=== PATIENT | male | born 1955 | race Caucasian/White ===

== ENCOUNTER 2016-07-04 12:39 | Inpatient (IN) | payer MEDICARE ==
--- NOTE | 2016-07-04 14:00 | ED ---
General Adult HPI - General Chief complaint: Psychiatric Symptoms Stated complaint: Mental Health Time Seen by Provider: 07/04/16 13:24 Source: patient, police, RN notes reviewed Mode of arrival: ambulatory Limitations: no limitations - History of Present Illness Initial comments: Patient is a pleasant 61-year-old male presenting to the emergency Department with correctional officers. Patient is here for mental health evaluation. Patient states he feels fine and has no complaints. Patient does at times answer questions inappropriately. Patient denies current thoughts of self-harm or harming others. Patient states sometimes he does not remember things and questions if he has a rational thoughts at times. Patient did eat today. Patient does not believe he is currently on medication. Patient denies alcohol and street drug use. Patient denies hallucinations however sometimes states he has odd thoughts and sometimes believes things are happening that may not be correct. - Related Data Previous Rx's Medication Instructions Recorded risperiDONE 3 mg PO BID #60 tablet 12/06/15 Allergies Allergy/AdvReac Type Severity Reaction Status Date / Time Sulfa (Sulfonamide Allergy Rash/Hives Verified 07/04/16 14:37 Antibiotics) Review of Systems ROS Statement: Those systems with pertinent positive or pertinent negative responses have been documented in the HPI. ROS Other: All systems not noted in ROS Statement are negative. Constitutional: Denies: fever Eyes: Denies: eye pain ENT: Denies: ear pain Respiratory: Denies: cough Cardiovascular: Denies: chest pain Endocrine: Denies: fatigue Gastrointestinal: Denies: abdominal pain Genitourinary: Denies: dysuria Musculoskeletal: Denies: back pain Skin: Denies: rash Neurological: Denies: headache Past Medical History Past Medical History: Hypertension History of Any Multi-Drug Resistant Organisms: None Reported Past Surgical History: Orthopedic Surgery Additional Past Surgical History / Comment(s): sinus sx Past Anesthesia/Blood Transfusion Reactions: No Reported Reaction Past Psychological History: Schizophrenia Smoking Status: Current every day smoker Past Alcohol Use History: None Reported Past Drug Use History: None Reported General Exam Limitations: no limitations General appearance: alert, in no apparent distress Head exam: Present: atraumatic Eye exam: Present: normal appearance Respiratory exam: Present: normal lung sounds bilaterally Cardiovascular Exam: Present: regular rate, normal rhythm GI/Abdominal exam: Present: soft. Absent: tenderness Extremities exam: Present: normal inspection Neurological exam: Present: alert Psychiatric exam: Present: normal affect, normal mood Skin exam: Absent: rash Course Vital Signs 07/04/16 12:44 Temperature 98.1 F Pulse Rate 101 H Respiratory 20 Rate Blood Pressure 171/101 O2 Sat by Pulse 97 Oximetry Medical Decision Making - Medical Decision Making Patient was seen by mental health services, who will admit. Positive clinical certificate completed. - Lab Data Lab Results 07/04/16 Range/Units 16:05 Urine Opiates Screen Not Detected (NotDetected) Ur Oxycodone Screen Not Detected (NotDetected) Urine Methadone Screen Not Detected (NotDetected) Ur Propoxyphene Screen Not Detected (NotDetected) Ur Barbiturates Screen Not Detected (NotDetected) U Tricyclic Antidepress Not Detected (NotDetected) Ur Phencyclidine Scrn Not Detected (NotDetected) Ur Amphetamines Screen Not Detected (NotDetected) U Methamphetamines Scrn Not Detected (NotDetected) U Benzodiazepines Scrn Not Detected (NotDetected) Urine Cocaine Screen Not Detected (NotDetected) U Marijuana (THC) Screen Not Detected (NotDetected) Disposition Clinical Impression: Acute psychosis Disposition: TRANSFER TO PSYCH HOSP/UNIT
[2016-07-04] MEDS ORDERED: MAG HYDROX/AL HYDROX/SIMETH 30 ML CUP PO PRN (17:00)
[2016-07-04] MEDS ORDERED: MAGNESIUM HYDROXIDE 2,400 MG/10 ML CUP PO PRN (17:00)
[2016-07-04] MEDS ORDERED: ZIPRASIDONE 20 MG VIAL IM PRN (17:00)
[2016-07-04] MEDS ORDERED: LORazepam 2 MG/ML SYRINGE IM PRN (17:02)
[2016-07-04] MEDS ORDERED: cloNIDine HCL 0.1 MG TAB PO PRN (19:22)
[2016-07-04] MEDS: cloNIDine HCL 0.1 MG TAB PO SCH (20:25)
[2016-07-04] MEDS: CEPHALEXIN 500 MG CAP PO SCH (20:25)
[2016-07-04] MEDS: LORazepam 1 MG TAB PO PRN (22:30)
[2016-07-05 07:47] LABS: Aty Lym Flag Slight; CH 30.8; CHCM 33.6; HCT 49.2 % (39.0-53.0); HDW 2.57; HGB 16.4 gm/dL (13.0-17.5); MCH 30.7 pg (25.0-35.0); MCHC 33.3 g/dL (31.0-37.0); Mean Platelet Volume 7.5; RBC 5.35 m/uL (4.30-5.90); RDW 12.9 % (11.5-15.5); WBC (Perox) 12.53
[2016-07-05 07:53] LABS: ALT 34 U/L (21-72); AST 29 U/L (17-59); Alkaline Phosphatase 98 U/L (38-126); Anion Gap 7 mmol/L; Blood Urea Nitrogen 15 mg/dL (9-20); Calcium 9.1 mg/dL (8.4-10.2); Carbon Dioxide 26 mmol/L (22-30); Chloride 107 mmol/L (98-107); Glucose 88 mg/dL (74-99); Non-African American GFR(MDRD) >60 (>60 ml/min/1.73 sqM); Potassium 4.4 mmol/L (3.5-5.1); Sodium 140 mmol/L (137-145); Total Bilirubin 0.9 mg/dL (0.2-1.3); Total Protein 6.7 g/dL (6.3-8.2)
--- NOTE | 2016-07-05 08:44 | CONS ---
DATE OF CONSULTATION: 07/04/2016 REASON FOR CONSULTATION: Advice regarding cellulitis and other medical issues requested by Psychiatrist. HISTORY OF PRESENT ILLNESS: This 61-year-old gentleman with past medical history of schizophrenia, history of nicotine dependence, being followed by Dr. Roque in the outpatient setting apparently recently got out of alf. The patient is complaining of some pains and swelling and some reddish area in the right wrist area. There is no history of fever, rigors. No history of headache, loss of consciousness or seizures. PAST MEDICAL HISTORY: Schizophrenia, history nicotine dependence. HOME MEDICATIONS: Risperdal 3 mg p.o. daily. ALLERGIES: SULFA. FAMILY HISTORY: No history of heart disease or strokes in the family. SOCIAL HISTORY: History of smoking. No history of alcohol intake. REVIEW OF SYSTEMS: ENT: No diminishing hearing. No diminished vision. CARDIOVASCULAR: No angina or palpitations. RESPIRATORY: As mentioned earlier. GI: No nausea. : No dysuria. NERVOUS SYSTEM: No numbness, weakness. ALLERGY/IMMUNOLOGY: No asthma or hayfever. MUSCULOSKELETAL: As mentioned earlier. HEMATOLOGY/ONCOLOGY: No history of anemia. ENDOCRINE: No history of diabetes. CONSTITUTIONAL: As mentioned earlier. DERMATOLOGY: Negative. RHEUMATOLOGY: Negative. PSYCHIATRY: As mentioned earlier. PHYSICAL EXAMINATION: Patient is alert and oriented x2. Pulse 101, blood pressure 171/101, respirations 20, temperature 98.1, pulse ox 97% on room air. HEENT: Conjunctivae normal. NECK: No jugular venous distention. CARDIOVASCULAR: S1 and S2, muffled. RESPIRATORY: Breath sounds diminished at the bases. A few rhonchi, no crackles. ABDOMEN: Soft, nontender, no mass palpable. LEGS: No edema, no swelling. NERVOUS SYSTEM: Higher function as mentioned. Moves all four limbs. No focal motor deficits. Cranial nerves II to XII grossly intact. Eye movements are full in all directions. No nystagmus. No facial deviation noted. Otherwise, moves all 4 limbs. No focal deficits. Gait is normal. SKIN: No ulcer, rash or bleeding. Cellulitis of the right wrist area present. LYMPHATIC: No lymphadenopathy in the neck, axillae or groin. JOINTS: No active deforming arthropathy. LABS: Drug screen is negative. ASSESSMENT: 1. Acute right arm cellulitis. 2. Hypertension. 3. Schizophrenia. 4. Nicotine dependence. 5. History of degenerative joint disease. 6. FULL CODE. RECOMMENDATIONS AND DISCUSSION: In this 61-year-old gentleman who presented with multiple medical problems, will monitor the patient closely. Continue the current medications. Continue symptomatic treatment. I would recommend a course of antibiotics, clonidine for blood pressure control. I also recommend the patient to follow-up closely with Dr. Roque after discharge. I will be happy to review any abnormal labs once a labs are completed. Thank you for letting us participate in the care of this patient.
[2016-07-05] MEDS: NICOTINE 14MG/24HR PATCH TRANSDERM SCH (09:35)
[2016-07-05] MEDS: cloNIDine HCL 0.1 MG TAB PO SCH ×2 (09:37→21:36)
[2016-07-05] MEDS: CEPHALEXIN 500 MG CAP PO SCH ×3 (11:22→21:37)
[2016-07-05] MEDS: LORazepam 1 MG TAB PO PRN (12:04)
[2016-07-05 14:03] LABS: Add Differential Manual Differential
[2016-07-05 14:05] LABS: Nucleated Red Blood Cells 0 /100 WBC (0-0); Total Cells Counted 100
[2016-07-05 14:06] LABS: RBC Morphology Normal
[2016-07-05] MEDS: risperiDONE 2 MG TAB PO SCH (15:02)
[2016-07-05] MEDS: FLUoxetine HCL 20 MG CAP PO SCH (15:02)
--- NOTE | 2016-07-05 17:31 | HP ---
DATE OF SERVICE: 07/05/2016 DATE OF ADMISSION: 07/04/2016 IDENTIFYING DATA: The patient is a 61-year-old male. He lives alone. He was brought to the emergency room by police who brought him from the nursing home. CHIEF COMPLAINT: The patient apparently was making odd statements. He was asked seen in a disorganized way, Police petitioned for involuntary hospitalization describing the patient as "Untrusting, suspicious, guarded, disheveled, easily agitated, unaware of day, date, time, labile mood." He apparently was making odd and delusional statements. He had disorganized behavior such as urinating on the floor. HISTORY OF PRESENTING ILLNESS: The patient source of admission information in it is noted that he had a prior hospitalization here December 02 to December 06, 2015. At that time Dr. Quintana noted on her admission note that the patient was admitted due to depression with thoughts of wanting to commit suicide. He considered overdose. He came to the emergency room saying he needed help. He had increasing feelings over one month's time of being hopeless, helpless, and worthless. He had loss of energy and motivation. He had loss of energy, motivation and interest. He was sleeping in the day and then would be awake all night. He was eating poorly because of very limited resources. He denied auditory or visual hallucinations. He denied thoughts to harm others. The patient had reported that he had depression problems going back to high school. He had been involved at [facility], though had not been in their care for the last 1 to 1-1/2 years leading up to the November hospitalization. The reason for the change was that he was on Medicare. He had a primary care physician who prescribed medications. He had a history of 2 suicide attempts, one by overdose of [id number] sleeping medications and another when he put a gun in his mouth. He did report a history of auditory hallucinations. He has a diagnosis through [facility] with schizophrenia. He has had stays at [facility] 2 to 3 times in the past with brief stays lasting about 30 days. During his admission in November, the patient was started on Prozac 20 mg a day and Risperdal 3 mg twice a day. Since November, the patient provided some information about his life since then. He gave information that was fairly disjointed. He said that upon discharge he lost his prescriptions for his medications. He ultimately got his medications filled by Dr. Roque his primary care physician. He was unclear for how long he took the medications, though suggested he stayed on Risperdal and Prozac for 2 to 3 months. Sometime in March he ran out of medications because of financial issues. She got one refill of medications perhaps toward the end of March and the medications ran out. He has not been able to get to any further medications. He did not provide much information about the basis of arrest. He said that he was in some community location. The geothermal installer stopped him and asked a number of questions. He did not have an identification. He was asked if he had a weapon and he reported carrying a knife. According to the patient, he was arrested on the basis of a "weapons charge." He was brought to nursing home. Patient himself is unaware of what issues may have prompted police to bring him from nursing home to the hospital. He does say that he has a court hearing coming up within the next week or 2 for the weapons charge. She describes an unfortunate situation where he lost his identification. He is hopeful to get a certificate. He apparently was born in [place]. He says he has some money in the bank though cannot access the money because he has no identification and that he is limited in getting identification because he has no money. He made mention of having psychiatric issues going back to high school, though he was unclear about details. He did indicate that he got involved in drug abuse, though he was again unclear about details. He does say that in the past he was on Prolixin perhaps until the . He said that the doctors recommended a change from Prolixin to Risperdal due to concerns for development of tardive dyskinesia. Currently he has not been taking any psychotropic medications. He is admitted for further evaluation. Substance use history: As above. MEDICAL HISTORY: Uncertain save for hypertension. Further medical history and review of systems as per medical consultation of Dr. Pro. 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 She September 17, 2015 he lives alone. MENTAL STATUS EXAM: Patient was unkempt in appearance. He sat with a slumped posture. Eye contact was fair. Psychomotor activity was slowed. He spoke with a soft voice. Much of the time he mumbled and it was difficult to discern what he was saying. It was noted that he would answer some questions with direct responses. Then he might make comments that were quite tangential. He seemed to be able to follow the course of the interview though his thoughts would wander off as he tried to provide some details. His affect was flat. His mood reserved. It was difficult to say if he was distressed. There was no immediate evidence for thought disorder. He denied thoughts of self-harm. On cognitive exam, he did not make an effort to answer formal cognitive questions. It is noteworthy that he made a number of comments that seemed to suggest he was well oriented. He made comments about his medications. He understood some of the side effects of medications when asked about self-harm, he made comments as to how he had gotten help in the past and knew he was able to get to the emergency room and get help so that he was not at risk to harm himself. When I tried to gather further details about current situation, he did not provide much information. It was not clear that he had specifically disorganized thoughts relating to thought disorder. He seemed to relate appropriately. He was oriented to his surroundings, though there was a sense that his thoughts did tend to wander. When he spoke he could say things in an organized and coherent manner. Fund of knowledge average to somewhat below average. PHYSICAL EXAM: As per medical consultation of Dr. Pro. DIAGNOSTIC STUDIES: CBC was positive for WBC 13.0, hemoglobin 16.4, MCV 92, comprehensive metabolic profile was unremarkable, glucose 88, creatinine 0.9, TSH 1.5, urine drug screen negative. ASSESSMENT: 61-year-old male who is diagnosed with schizophrenia. He has unfortunate social circumstances with very limited resources, both in terms of money as well as social support. Some of the factors relating to his hospitalization are not clear. He does have legal issues pending. Strengths appeared to include that he has managed to live independently and maintain himself. DIAGNOSES: 1. Schizophrenia with acute exacerbation. 2. Rule out major depression. 3. Hypertension. RECOMMENDATIONS: Patient will be admitted for comprehensive medical, psychiatric and psychosocial evaluation. We will engage the patient in individual and group therapeutic activities. I will start the patient on Prozac 20 mg a day and Risperdal 6 mg a day as has been previously prescribed. We will make efforts to help the patient find some connections in the community and hopefully to begin to develop support network. We will focus on stabilization and discharge planning. AG
[2016-07-06] MEDS: CEPHALEXIN 500 MG CAP PO SCH ×3 (09:55→21:14)
[2016-07-06] MEDS: cloNIDine HCL 0.1 MG TAB PO SCH ×2 (09:57→21:14)
[2016-07-06] MEDS: NICOTINE 14MG/24HR PATCH TRANSDERM SCH (09:57)
[2016-07-06] MEDS: FLUoxetine HCL 20 MG CAP PO SCH (09:57)
[2016-07-06] MEDS: risperiDONE 2 MG TAB PO SCH (09:58)
[2016-07-06 19:48] LABS: Appearance,Urine Clear (Clear); Bilirubin,Urine Negative (Negative); Glucose,Urine (UA) Negative (Negative); Ketones,Urine Trace (Negative); Leukocyte Esterase,Urine Negative (Negative); Nitrite,Urine Negative (Negative); PH, Urine 6.5 (5.0-8.0); Protein,Urine Negative (Negative); Specific Gravity,Urine 1.015 (1.001-1.035); UA Billing (MACRO vs. MICRO) CHEM; Urobilinogen,Urine <2.0 mg/dL (<2.0)
--- NOTE | 2016-07-06 22:31 | PN ---
DATE OF SERVICE: 07/06/2016 CHIEF COMPLAINT: The patient was admitted due to making odd statements and disorganized behavior. He was petitioned by police. He appeared delusional. INTERVAL HISTORY: Patient has been doing fair. He had a quiet evening last night. He only slept about 3 hours. Today he has been up and about. He has been attending groups. He is generally appropriate, though he does not interact too much in groups or in the milieu. He gets himself around the milieu. He has not had any significant behavior issues. His biggest concern is with a complicated issue of not having identification so that he does not have access to money he has in the bank. Because of no identification he has not been able to get medications. He has pending legal issues with possession of a knife. He says he is stuck even not being able to take care of the fine because of the situation. He is most concerned with things such as obtaining a certificate to allow him to get IV so that he can function in the community. He made comments that he has been arrested on different occasions, each time he is arrested he loses "all of my possessions." He did not give details. Overall he seems to be doing adequately from a psychiatric standpoint. He was restarted on medicines that he been on previously. He has not had any trouble with the start of Prozac and Risperdal. He has been cooperative. He has not had change in his general health other than some fluctuations in blood pressure. Last evening his blood pressure was 103/60, this morning a 6:30 it was 143/81. We will continue to monitor for blood pressure issues. He tolerates his psychotropic medications. MENTAL STATUS: Patient gave good eye contact. Psychomotor activity was a little restless. He answered questions with brief responses then would tend to ramble about other issues. He was quite persistent in talking about the dilemma he was in with not having identification. He was very concerned about how he may be able to go about it getting the basics in his daily life re-established. His affect was somewhat blunted. His mood reserved. He seemed to be worries and somewhat distressed. ASSESSMENT: I will continue the current diagnosis and treatment plan. We will continue psychotropic medications the same. I discussed with the patient that the social media content specialist could begin to help him sort out some of the issues that he feels are critical. He seems to be doing adequately on his medications. There are no significant signs of active thought disorder. We will continue to focus on stabilization and discharge planning.
[2016-07-07] MEDS: cloNIDine HCL 0.1 MG TAB PO SCH ×2 (09:26→20:13)
[2016-07-07] MEDS: risperiDONE 2 MG TAB PO SCH (09:26)
[2016-07-07] MEDS: CEPHALEXIN 500 MG CAP PO SCH ×3 (09:26→20:13)
[2016-07-07] MEDS: FLUoxetine HCL 20 MG CAP PO SCH (09:27)
[2016-07-07] MEDS: NICOTINE 14MG/24HR PATCH TRANSDERM SCH (09:27)
--- NOTE | 2016-07-07 11:37 | P.PN ---
Progress Note - Text SUBJECTIVE: I reviewed the medical record, interviewed Mr. Sarabia and discuss his treatment and treatment plan during team meeting. He is a 61-year-old male who has history of a chronic schizophrenia transferred from nursing home where he was awaiting arrangement for possession of a switchblade. He has history of poor compliance with mental health treatment. According to the petition and he was suspicious, guarded, disheveled, easily agitated and labile. During our interview he perseverated on his legal problems, housing problems and inability to obtain identification. He alleged that he has been harassed by the [place] police resulting in several incarcerations. He has been living in a motel but is uncertain whether he could return because he does not have state identification to withdraw money from his bank to pay rent. He minimizes severity of legal problems alleging that he had possession of a " tiny knife". He alleges she didn't understand the reason for his answer from nursing home. OBJECTIVE: He presented as a casually groomed 61-year-old male who was pleasant on approach. He made eye contact and appeared to attend to the interview. No distinguishing features or prominent physical abnormalities. He had a blunted facial expression. He is alert and oriented to person, place and time. He had slight psychomotor retardation but no abnormal involuntary movements. His gait was slow but steady. His speech was dysarthric, and spontaneous. His affect was blunted. He denied suicidal ideation or wish. He denied homicidal ideation. He denied feeling hopeless, helpless or worthless. He ruminated on the balls legal and social issues. He did not express phobias, ideas reference, paranoid ideation or delusional thinking. His thinking was very concrete and his associations were not fully organized. He denied hallucinations and did not appear to be responding to internal stimuli. He has not shown behavioral dyscontrol or disruptive behavior since admission. ASSESSMENT: He has a history of chronic schizophrenia and poor compliance with medical treatment. Overall, he appears moderately mentally ill and moderately improved from admission. PLAN: Continue inpatient psychiatric hospitalization. Discuss transitioning from oral to long-acting intramuscular antipsychotic medications. Continue risperidone 6 mg at bedtime and fluoxetine 20 mg daily. Discuss transitioning from risperidone to Invega Sustenna. Continue Keflex 500 mg 3 times a day as per the recommendation of the solutions architect consultant. Encourage participation in therapeutic groups and activities. Evaluate clinical status response to treatment daily basis. Discharge back to nursing home.
[2016-07-08] MEDS: NICOTINE 14MG/24HR PATCH TRANSDERM SCH (09:11)
[2016-07-08] MEDS: FLUoxetine HCL 20 MG CAP PO SCH (09:12)
[2016-07-08] MEDS: risperiDONE 2 MG TAB PO SCH (09:12)
[2016-07-08] MEDS: cloNIDine HCL 0.1 MG TAB PO SCH ×2 (09:12→20:49)
[2016-07-08] MEDS: CEPHALEXIN 500 MG CAP PO SCH ×2 (09:12→15:37)
[2016-07-08] MEDS: ACETAMINOPHEN TAB 325 MG TAB PO PRN ×3 (10:55→20:49)
--- NOTE | 2016-07-08 15:23 | P.PN ---
Progress Note - Text SUBJECTIVE: I reviewed the medical record, interviewed Mr. Sarabia and discuss his treatment and treatment plan during team meeting. He denied problems or concerns. I asked that he be interested in switching from oral to a long acting injectable medication. He became acutely distressed and talked about not wanting to take month's supply of medication "all at once." His thinking was so disorganized that he could not understand my explanation that the injectable medication was timed release. OBJECTIVE: He presented as a disheveled appearing 61-year-old male who was pleasant on approach. He made eye contact and appeared to attend to the interview. No distinguishing features or prominent physical abnormalities. He had a blunted facial expression. He is alert and oriented to person, place and time. He had slight psychomotor retardation but no abnormal involuntary movements. His gait was slow but steady. His speech was dysarthric , and spontaneous. His affect was blunted. He denied suicidal ideation or wish. He denied homicidal ideation. He denied feeling hopeless, helpless or worthless. He did not express phobias, ideas reference, paranoid ideation or delusional thinking. His thinking was very concrete and was disorganized, illogical and nonlinear. He denied hallucinations and did not appear to be responding to internal stimuli. He has not shown behavioral dyscontrol or disruptive behavior since admission. ASSESSMENT: He has a history of chronic schizophrenia and poor compliance with medical treatment. Overall, he appears moderately mentally ill and moderately improved from admission. PLAN: Continue inpatient psychiatric hospitalization. Continue to discuss transitioning from oral to long-acting intramuscular antipsychotic medications. Continue risperidone 6 mg at bedtime and fluoxetine 20 mg daily. Continue Keflex 500 mg 3 times a day as per the recommendation of the franchise field consultant. Encourage participation in therapeutic groups and activities. Evaluate clinical status response to treatment daily basis. Discharge back to alf.
[2016-07-09] MEDS: NICOTINE 14MG/24HR PATCH TRANSDERM SCH (10:17)
[2016-07-09] MEDS: cloNIDine HCL 0.1 MG TAB PO SCH ×2 (10:17→21:49)
[2016-07-09] MEDS: risperiDONE 2 MG TAB PO SCH (10:19)
[2016-07-09] MEDS: FLUoxetine HCL 20 MG CAP PO SCH (10:20)
[2016-07-09] MEDS: ACETAMINOPHEN TAB 325 MG TAB PO PRN (16:23)
[2016-07-10 06:59] VITALS: BP 108/83; PULSE 121; RESP 18; TEMP 97.7
[2016-07-10] MEDS: NICOTINE 14MG/24HR PATCH TRANSDERM SCH (10:33)
[2016-07-10] MEDS: risperiDONE 2 MG TAB PO SCH (10:33)
[2016-07-10] MEDS: cloNIDine HCL 0.1 MG TAB PO SCH (10:33)
[2016-07-10] MEDS: FLUoxetine HCL 20 MG CAP PO SCH (10:33)
[2016-07-10] MEDS: ACETAMINOPHEN TAB 325 MG TAB PO PRN (10:34)
--- NOTE | 2016-07-10 11:43 | P.PN ---
Progress Note - Text SUBJECTIVE: I reviewed the medical record, interviewed Mr. Valle and discuss his treatment and treatment plan during team meeting. He came to my office but refused to speak. He looked at the floor or about the room. OBJECTIVE: He presented as a disheveled appearing 61-year-old male who would not ask questions or speak. He had a flat facial expression. He showed no abnormality of psychomotor activity. No abnormal involuntary movements. His affect was flat. He did not look paranoid or suspicious. I was unable to evaluate his thought process. He did not appear to be responding to internal stimuli. He slept 6 hours on Thursday night and 5 hours Thursday night. He's been compliant with prescribed medications. He displayed no episodes of behavioral dyscontrol and has not required when necessary medications for agitation or acute anxiety. ASSESSMENT: His presentation is markedly different from yesterday were I was able to engage him in a conversation. PLAN: Continue inpatient hospitalization. Continue suicide precautions with 15 minute checks. Continue risperidone 6 mg at bedtime, fluoxetine 20 mg daily and clonidine 0.1 mg twice a day (for hypertension). Continue to discuss transitioning to [facility]. He will return to skilled nursing after discharge.
--- NOTE | 2016-07-10 11:47 | P.PN ---
Progress Note - Text SUBJECTIVE: I reviewed the medical record, interviewed Mr. amor and discuss his treatment and treatment plan during team meeting. He came into my office and asked "what the fuck do you want. ... Do you want to psychoanalyze me or something. ... I got nothing to say unless you give me a cigarette." He inquired when he would be discharged. He understands that he will return to nursing home. OBJECTIVE: He presented as disheveled-appearing 61-year-old man who is minimally cooperative with the interview. He made eye contact and appeared to attend to the interview. He had no distinguishing features or prominent physical abnormalities. An angry facial expression. He was alert and oriented to person, place and time. He showed no abnormality of psychomotor activity. No abnormal involuntary movements. His speech was not spontaneous but had normal rate, rhythm and volume. His affect was irritable and angry. He denied suicidal ideation or wishes. He denied homicidal ideation. He denied feeling hopeless, helpless or worthless. He would not answer questions about psychotic experiences such as ideas reference, paranoid ideation, thought insertion, thought broadcasting or hallucinations. His thinking was concrete but her associations were organized. ASSESSMENT: He is irritable but does not display overt psychotic symptoms. PLAN: Discharge today with follow-up by the [facility] liaison at the nursing home.
--- NOTE | 2016-07-10 15:02 | P.DS ---
Providers Date of admission: 07/04/16 16:13 Attending physician: Caden Underwood MD Consults: 07/04/16 17:00 Consult Physician Routine Consulting Provider: Stacy Pro Consult Reason/Comments: follow up h & P Do you want consulting provider notified?: Yes Primary care physician: Jude Restrepo Charbal - Discharge Diagnosis(es) (1) Schizophrenia Current Visit: Yes Status: Chronic Priority: High (2) Poor compliance with medication Current Visit: Yes Status: Chronic Priority: High (3) Legal problem Current Visit: Yes Status: Chronic Priority: Medium Hospital Course: He is a 61-year-old male who has history of a chronic schizophrenia transferred from halfway where he was awaiting arrangement for possession of a switchblade. He has history of poor compliance with mental health treatment. According to the petition and he was suspicious, guarded, disheveled, easily agitated and labile. Please see admission history dated 07/05/2016. We admitted him to the psychiatric unit under the care of this chief underwriter. We provided a biopsychosocial assessment. The integration consultant completed the initial physical exam and medical history and diagnosed hypertension, tobacco use disorder and history of degenerative joint disease. The integration consultant recommended clonidine 0.1 mg by mouth twice a day for treatment of hypertension. We resumed his outpatient psychotropic medications including risperidone 6 mg daily and fluoxetine 20 mg daily. He participated minimally with therapeutic groups and activities. However, he was compliant with prescribed medications. He posed no management problem displayed no episodes of behavioral dyscontrol. He is angry about his legal problems and the fact that he had to return to halfway after discharge. We'll arrange for him to receive services provided the [facility] halfway liaison. Patient Condition at Discharge: Stable Plan - Discharge Summary New Discharge Prescriptions: FLUoxetine HCL [PROzac] 20 mg PO DAILY #30 cap Nicotine 14Mg/24Hr Patch [Habitrol] 1 patch TRANSDERM DAILY 30 Days cloNIDine HCL [Catapres] 0.1 mg PO BID #60 tab risperiDONE 3 mg PO BID #60 tablet Discharge Medication List FLUoxetine HCL [PROzac] 20 mg PO DAILY #30 cap 07/10/16 [Rx] Nicotine 14Mg/24Hr Patch [Habitrol] 1 patch TRANSDERM DAILY 30 Days 07/10/16 [Rx ] cloNIDine HCL [Catapres] 0.1 mg PO BID #60 tab 07/10/16 [Rx] risperiDONE 3 mg PO BID #60 tablet 07/10/16 [Rx] Follow up Appointment(s)/Referral(s): [facility] [Outside] - 07/16/16 1:00 pm ([facility] w/ Jaelyn 07/16/16 at 1:00 pm. ) Zach Roque MD [Primary Care Provider] - 1 Week Patient Instructions/Handouts: How to Stop Smoking (DC), Depression (DC), Brief Psychotic Disorder (DC) Activity/Diet/Wound Care/Special Instructions: No alcohol or street drugs. Take medications as prescribed. Notify the crisis line or your care provider if symptoms worsen. Crisis line no. . Regular diet. Activity as tolerated. Discharge Disposition: HOME SELF-CARE
== END 2016-07-10 15:18 | disposition home or self-care (01) | DRG 885 ==
LOC: EC 12:39 → 3MHU 16:13
PROVIDERS: ADMIT Psychiatry & Neurology Psychiatry; ATTEND Psychiatry & Neurology Psychiatry
DX: F20.9 Schizophrenia, unspecified (principal); L03.113 Cellulitis of right upper limb; Z91.14 Patient's other noncompliance with medication regimen; I10 Essential (primary) hypertension; F32.9 Major depressive disorder, single episode, unspecified; F17.200 Nicotine dependence, unspecified, uncomplicated; M19.90 Unspecified osteoarthritis, unspecified site; Z79.899 Other long term (current) drug therapy; Z88.2 Allergy status to sulfonamides; Z59.9 Problem related to housing and economic circumstances, unspecified; Z65.3 Problems related to other legal circumstances
CPT/HCPCS: 80053; 80306; 81003; 82075; 84443; 85025

== ENCOUNTER 2018-11-09 17:10 | Inpatient (IN) | payer MEDICARE, OTHER ==
[2018-11-09] MEDS ORDERED: SODIUM CHLORIDE 0.9% 1,000 ML IV STA ×3 (17:24→20:23)
--- NOTE | 2018-11-09 17:26 | ED ---
General Adult HPI - General Chief complaint: Weakness Stated complaint: Weakness Time Seen by Provider: 11/09/18 17:12 Source: patient, EMS, RN notes reviewed Mode of arrival: EMS Limitations: physical limitation - History of Present Illness Initial comments: Patient is a pleasant 63-year-old male presenting to the emergency department by EMS for general weakness. Patient states onset of symptoms was this morning. Patient states he sat down and was too weak to get up. Patient is overall a poor historian and does not offer much information. There was question if there is any confusion or not however patient does answer questions appropriately. Patient denies any history of similar symptoms previously. Patient denies any pain. Patient denies any isolated area of weakness. - Related Data Previous Rx's Medication Instructions Recorded FLUoxetine HCL [PROzac] 20 mg PO DAILY #30 cap 07/10/16 Nicotine 14Mg/24Hr Patch [Habitrol] 1 patch TRANSDERM DAILY 30 Days 07/10/16 patch cloNIDine HCL [Catapres] 0.1 mg PO BID #60 tab 07/10/16 risperiDONE 3 mg PO BID #60 tablet 07/10/16 Allergies Allergy/AdvReac Type Severity Reaction Status Date / Time Sulfa (Sulfonamide Allergy Rash/Hives Verified 11/09/18 17:54 Antibiotics) Review of Systems ROS Statement: Those systems with pertinent positive or pertinent negative responses have been documented in the HPI. ROS Other: All systems not noted in ROS Statement are negative. Constitutional: Denies: fever Eyes: Denies: eye pain ENT: Denies: ear pain Respiratory: Denies: cough, dyspnea Cardiovascular: Denies: chest pain Endocrine: Denies: fatigue Gastrointestinal: Denies: abdominal pain Genitourinary: Denies: urgency Musculoskeletal: Denies: back pain Skin: Denies: rash Neurological: Reports: as per HPI, weakness (Generalized). Denies: headache Past Medical History Past Medical History: Hypertension History of Any Multi-Drug Resistant Organisms: None Reported Past Surgical History: Orthopedic Surgery Additional Past Surgical History / Comment(s): sinus sx Past Anesthesia/Blood Transfusion Reactions: No Reported Reaction Past Psychological History: Schizophrenia Smoking Status: Current every day smoker Past Alcohol Use History: None Reported Past Drug Use History: None Reported General Exam Limitations: physical limitation General appearance: alert, in no apparent distress Head exam: Present: atraumatic Eye exam: Present: normal appearance, PERRL, EOMI ENT exam: Present: normal oropharynx Neck exam: Present: normal inspection Respiratory exam: Present: normal lung sounds bilaterally Cardiovascular Exam: Present: tachycardia GI/Abdominal exam: Present: soft. Absent: distended, tenderness Extremities exam: Present: normal inspection Neurological exam: Present: alert, oriented X3, CN II-XII intact. Absent: motor sensory deficit Expanded Patient oriented to: Present: person, place, time Speech: Present: fluid speech Cranial nerves: EOM's Intact: Normal Motor strength exam: RUE: 5, LUE: 5, RLE: 5, LLE: 5 Eye Response: (4) open spontaneously Motor Response: (6) obeys commands Verbal Response: (5) oriented Psychiatric exam: Present: normal affect, normal mood Skin exam: Present: rash (Patient does have a tiny eschar/rash and dorsal hand and somewhat on the feet consistent with scabies.) Course Vital Signs 11/09/18 11/09/18 17:14 19:34 Temperature 99.1 F Pulse Rate 134 H 131 H Respiratory 18 20 Rate Blood Pressure 135/80 144/97 O2 Sat by Pulse 92 L 94 L Oximetry - Reevaluation(s) Reevaluation #1: 11/09/18 20:24 Patient does meet sepsis criteria diagnosed at 2020. Blood culture and lactic acid were ordered. IV antibiotics will be ordered. EKG Findings - EKG Comments: EKG Findings:: Sinus tachycardia 128. KS 132. QRS 72. QT 286. QTc 417. Left axis. Normal QRS. No acute ST change. Medical Decision Making - Medical Decision Making Patient reevaluated and updated. Case discussed with practitioner Martita, covering for Dr. Pro, who will admit for Dr. Roque. - Lab Data Result diagrams: 11/09/18 17:47 11/09/18 17:47 Lab Results 11/09/18 11/09/18 11/09/18 Range/Units 17:47 17:47 17:47 WBC 30.3 H (3.8-10.6) k/uL RBC 4.79 (4.30-5.90) m/uL Hgb 14.9 (13.0-17.5) gm/dL Hct 43.8 (39.0-53.0) % MCV 91.5 (80.0-100.0) fL MCH 31.0 (25.0-35.0) pg MCHC 33.9 (31.0-37.0) g/dL RDW 14.2 (11.5-15.5) % Plt Count 214 (150-450) k/uL Neutrophils % 81 % Lymphocytes % 12 % Monocytes % 4 % Eosinophils % 1 % Basophils % 1 % Neutrophils # 24.6 H (1.3-7.7) k/uL Lymphocytes # 3.5 (1.0-4.8) k/uL Monocytes # 1.2 H (0-1.0) k/uL Eosinophils # 0.2 (0-0.7) k/uL Basophils # 0.2 (0-0.2) k/uL PT (9.0-12.0) sec INR (<1.2) APTT (22.0-30.0) sec Sodium 128 L (137-145) mmol/L Potassium 4.2 (3.5-5.1) mmol/L Chloride 93 L (98-107) mmol/L Carbon Dioxide 23 (22-30) mmol/L Anion Gap 12 mmol/L BUN 12 (9-20) mg/dL Creatinine 1.05 (0.66-1.25) mg/dL Est GFR (CKD-EPI)AfAm 89 (>60 ml/min/1.73 sqM) Est GFR (CKD-EPI)NonAf 77 (>60 ml/min/1.73 sqM) Glucose 149 H (74-99) mg/dL Plasma Lactic Acid Abel 1.6 (0.7-2.0) mmol/L Calcium 8.9 (8.4-10.2) mg/dL Magnesium 1.7 (1.6-2.3) mg/dL Total Bilirubin 1.2 (0.2-1.3) mg/dL AST 20 (17-59) U/L ALT 15 L (21-72) U/L Alkaline Phosphatase 113 (38-126) U/L Creatine Kinase 255 H (55-170) U/L Troponin I (0.000-0.034) ng/mL Total Protein 7.0 (6.3-8.2) g/dL Albumin 4.0 (3.5-5.0) g/dL TSH 0.460 L (0.465-4.680) mIU/L Urine Color Urine Appearance (Clear) Urine pH (5.0-8.0) Ur Specific [place] (1.001-1.035) Urine Protein (Negative) Urine Glucose (UA) (Negative) Urine Ketones (Negative) Urine Blood (Negative) Urine Nitrite (Negative) Urine Bilirubin (Negative) Urine Urobilinogen (<2.0) mg/dL Ur Leukocyte Esterase (Negative) 11/09/18 11/09/18 11/09/18 Range/Units 17:47 17:47 19:22 WBC (3.8-10.6) k/uL RBC (4.30-5.90) m/uL Hgb (13.0-17.5) gm/dL Hct (39.0-53.0) % MCV (80.0-100.0) fL MCH (25.0-35.0) pg MCHC (31.0-37.0) g/dL RDW (11.5-15.5) % Plt Count (150-450) k/uL Neutrophils % % Lymphocytes % % Monocytes % % Eosinophils % % Basophils % % Neutrophils # (1.3-7.7) k/uL Lymphocytes # (1.0-4.8) k/uL Monocytes # (0-1.0) k/uL Eosinophils # (0-0.7) k/uL Basophils # (0-0.2) k/uL PT 10.9 (9.0-12.0) sec INR 1.0 (<1.2) APTT 25.6 (22.0-30.0) sec Sodium (137-145) mmol/L Potassium (3.5-5.1) mmol/L Chloride (98-107) mmol/L Carbon Dioxide (22-30) mmol/L Anion Gap mmol/L BUN (9-20) mg/dL Creatinine (0.66-1.25) mg/dL Est GFR (CKD-EPI)AfAm (>60 ml/min/1.73 sqM) Est GFR (CKD-EPI)NonAf (>60 ml/min/1.73 sqM) Glucose (74-99) mg/dL Plasma Lactic Acid Abel (0.7-2.0) mmol/L Calcium (8.4-10.2) mg/dL Magnesium (1.6-2.3) mg/dL Total Bilirubin (0.2-1.3) mg/dL AST (17-59) U/L ALT (21-72) U/L Alkaline Phosphatase (38-126) U/L Creatine Kinase (55-170) U/L Troponin I <0.012 (0.000-0.034) ng/mL Total Protein (6.3-8.2) g/dL Albumin (3.5-5.0) g/dL TSH (0.465-4.680) mIU/L Urine Color Yellow Urine Appearance Clear (Clear) Urine pH 7.5 (5.0-8.0) Ur Specific [place] 1.010 (1.001-1.035) Urine Protein Negative (Negative) Urine Glucose (UA) Negative (Negative) Urine Ketones Negative (Negative) Urine Blood Negative (Negative) Urine Nitrite Negative (Negative) Urine Bilirubin Negative (Negative) Urine Urobilinogen <2.0 (<2.0) mg/dL Ur Leukocyte Esterase Negative (Negative) - Radiology Data Radiology results: report reviewed (Computed tomography scan of brain shows no acute intercranial abnormality. Pansinusitis.), image reviewed (Chest x-ray shows multifocal bronchopneumonia.) Critical Care Time Critical Care Time: Yes Total Critical Care Time: 32 Disposition Clinical Impression: Bronchopneumonia, Sepsis Disposition: ADMITTED IP TO THIS [facility] Condition: Serious Is patient prescribed a controlled substance at d/c from ED?: No Referrals: Zach Roque MD [Primary Care Provider] - 1-2 days Decision Time: 20:25
[2018-11-09 17:58] LABS: Basophils # (A) 0.2 k/uL (0-0.2); Basophils % (A) 1 %; Eosinophils # (A) 0.2 k/uL (0-0.7); Eosinophils % (A) 1 %; HCT 43.8 % (39.0-53.0); HGB 14.9 gm/dL (13.0-17.5); Lymphocytes # (A) 3.5 k/uL (1.0-4.8); Lymphocytes % (A) 12 %; MCHC 33.9 g/dL (31.0-37.0); MCV 91.5 fL (80.0-100.0); Mean Platelet Volume 7.1; Monocytes # (A) 1.2 k/uL (0-1.0); Monocytes % (A) 4 %; Neutrophils # (A) 24.6 k/uL (1.3-7.7); Neutrophils % (A) 81 %; Platelet Count 214 k/uL (150-450); RBC 4.79 m/uL (4.30-5.90); RDW 14.2 % (11.5-15.5); WBC 30.3 k/uL (3.8-10.6)
[2018-11-09 18:03] LABS: Partial Thromboplastin Time 25.6 sec (22.0-30.0); Prothrombin Time 10.9 sec (9.0-12.0)
[2018-11-09 18:09] LABS: Calcium 8.9 mg/dL (8.4-10.2); Magnesium 1.7 mg/dL (1.6-2.3); Potassium 4.2 mmol/L (3.5-5.1); Total Bilirubin 1.2 mg/dL (0.2-1.3)
--- NOTE | 2018-11-09 19:06 | CT ---
EXAMINATION: CT brain wo con DATE AND TIME: 11/09/2018 6:44 PM CLINICAL INDICATION: PHH; weakness TECHNIQUE: Standard departmental protocol.; 1146.4; COMPARISON: None. FINDINGS: The calvarium is intact. There is no intracranial hemorrhage. There is no intracranial mass or mass e ffect. No definite new intra-axial or extra-axial attenuation defect. The paranasal sinuses are completely opacified and they are expanded, as is the nasal cavity bilatera lly. These findings are consistent with severe pansinusitis inflammatory changes with prominent nasal polyps. The attenuation is predominantly low-attenuation but there is some high attenuation, suggest ing the possibility of a fungal component of the polyposis. The middle ear cavities and mastoid sinus air cells are clear bilaterally. The orbits are unremarkab le. IMPRESSION: No acute cranial/intracranial process. However, severe expansile metcalf sinusitis and nasal polyposis pattern.
[2018-11-09 19:49] LABS: Appearance,Urine Clear (Clear); Bilirubin,Urine Negative (Negative); Blood,Urine Negative (Negative); Color,Urine Yellow; Glucose,Urine (UA) Negative (Negative); Ketones,Urine Negative (Negative); Leukocyte Esterase,Urine Negative (Negative); Nitrite,Urine Negative (Negative); PH, Urine 7.5 (5.0-8.0); Protein,Urine Negative (Negative); Urobilinogen,Urine <2.0 mg/dL (<2.0)
--- NOTE | 2018-11-09 20:15 | XR ---
EXAMINATION: XR chest 2V DATE AND TIME: 11/09/2018 6:43 PM CLINICAL INDICATION: PHH; Weakness TECHNIQUE: Departmental protocol COMPARISON: None FINDINGS: There are multifocal ill-defined regions of silhouetted pulmonary vasculature which, on the lateral radiograph, appears to represent multifocal ill-defined opacities. The radiographic pattern can correlate with a clinical diagnosis of multifocal bronchopneumonia or, less likely, asymmetric pu lmonary edema. The findings are mild-plus in degree. The cardiac silhouette appears borderline enlarged. The skeletal structures and soft tissues are negative for acute findings. IMPRESSION: Pulmonary pattern as described.
[2018-11-09] MEDS ORDERED: PERMETHRIN 5% CREAM 60 GM TUBE TOPICAL ONE (20:25)
[2018-11-09] MEDS ORDERED: LEVOFLOXACIN 750MG-D5W PMX 750 MG in DEXTROSE/WATER 1 150ML.BAG IVPB STA (20:26)
[2018-11-09] MEDS ORDERED: PNEUMONIA PROTOCOL UTILIZED 1 EACH MISC PO PRN (20:26)
[2018-11-09] MEDS ORDERED: PIPERACILLIN-TAZOBACTAM 3.375 GM in SODIUM CHLORIDE 0.9% 100 ML IVPB STA (20:26)
[2018-11-09] MEDS: SODIUM CHLORIDE 0.9% 1,000 ML IV SCH (20:58)
[2018-11-10] MEDS: NICOTINE 14MG/24HR PATCH TRANSDERM SCH ×2 (00:09→09:02)
[2018-11-10] MEDS: cloNIDine HCL 0.1 MG TAB PO SCH ×2 (00:09→09:03)
[2018-11-10 03:03] LABS: T4, Free (Free Thyroxine) 2.03 ng/dL (0.78-2.19)
[2018-11-10] MEDS ORDERED: PIPERACILLIN-TAZOBACTAM 3.375 GM in SODIUM CHLORIDE 0.9% 100 ML IVPB SCH (08:00)
[2018-11-10] MEDS: SODIUM CHLORIDE 0.9% 1,000 ML IV SCH ×3 (09:03→21:20)
[2018-11-10] MEDS: FLUoxetine HCL 20 MG CAP PO SCH (09:03)
[2018-11-10] MEDS ORDERED: IPRATROPIUM-ALBUTEROL 3 ML NEB INHALATION PRN (09:24)
[2018-11-10 10:06] LABS: HCT 38.8 % (39.0-53.0); HGB 12.8 gm/dL (13.0-17.5); MCH 30.6 pg (25.0-35.0); MCV 92.6 fL (80.0-100.0); Mean Platelet Volume 7.6; Platelet Count 208 k/uL (150-450); RDW 13.8 % (11.5-15.5); WBC 30.3 k/uL (3.8-10.6)
[2018-11-10 10:19] LABS: Calcium 8.3 mg/dL (8.4-10.2); Potassium 4.2 mmol/L (3.5-5.1)
--- NOTE | 2018-11-10 12:42 | XR ---
EXAMINATION TYPE: XR chest 1V portable DATE OF EXAM: 11/10/2018 Comparison: 11/09/2018 Clinical History: 63-year-old male PN protocol. Shortness of breath. Findings: Heart upper limits of normal in size. More confluent opacity right upper lobe marginated by the minor fissure. Persistent opacity peripheral left base. Impression: Opacities are becoming more confluent in the right upper lobe and left base. Correlate for possible m ultifocal pneumonia.
--- NOTE | 2018-11-10 13:39 | P.HPIM ---
History of Present Illness Patient is a pleasant 63-year-old the male was brought in by his girlfriend because of his significant generalized weakness and too weak to get up at home patient is found to be hyponatremic patient is comparing of cough does have r honchus breath sounds although there is no evidence of pneumonia patient is admitted for possibility of pneumonia, patient denied any UTI symptoms patient is within normal limits. Patient does have leukocytosis of 30,000 which is predominantly neutrophilic leukocytosis. Not clear why patient has his leukocytosis. Patient is hyponatremic appears to have hypovolemic hyponatremia although I ordered urine and serum osmolality along with urine random sodium and urine random creatinine. TSH is is bit low but T4 is within normal limits. 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 She denied any diarrhea, headaches or photophobia. Patient does smoke does have cough with yellowish sputum production Review of Systems REVIEW OF SYSTEMS: CONSTITUTIONAL: No fever, no malaise, no fatigue. HEENT: No recent visual problems or hearing problems. Denied any sore throat. CARDIOVASCULAR: No chest pain, orthopnea, PND, no palpitations, no syncope. PULMONARY: No shortness of breath, no hemoptysis. GASTROINTESTINAL: No diarrhea, no nausea, no vomiting, no abdominal pain. NEUROLOGICAL: No headaches, no weakness, no numbness. HEMATOLOGICAL: Denies any bleeding or petechiae. GENITOURINARY: Denies any burning micturition, frequency, or urgency. MUSCULOSKELETAL/RHEUMATOLOGICAL: Denies any joint pain, swelling, or any muscle pain. ENDOCRINE: Denies any polyuria or polydipsia. The rest of the 14-point review of systems is negative. Past Medical History Past Medical History: Diabetes Mellitus, Hypertension History of Any Multi-Drug Resistant Organisms: None Reported Past Surgical History: Orthopedic Surgery Additional Past Surgical History / Comment(s): sinus sx Past Anesthesia/Blood Transfusion Reactions: No Reported Reaction Past Psychological History: Schizophrenia Smoking Status: Current every day smoker Past Alcohol Use History: None Reported Past Drug Use History: None Reported Medications and Allergies Home Medications Medication Instructions Recorded Confirmed Type FLUoxetine HCL [PROzac] 20 mg PO DAILY #30 cap 07/10/16 11/10/18 Rx cloNIDine HCL [Catapres] 0.1 mg PO BID #60 tab 07/10/16 11/10/18 Rx risperiDONE 3 mg PO BID #60 tablet 07/10/16 11/10/18 Rx Allergies Allergy/AdvReac Type Severity Reaction Status Date / Time Sulfa (Sulfonamide Allergy Rash/Hives Verified 11/09/18 17:54 Antibiotics) Physical Exam Vitals: Vital Signs Temp Pulse Pulse Resp BP BP Pulse Ox 11/10/18 03:00 127/76 11/09/18 22:12 97.9 F 119 H 22 147/105 11/09/18 21:12 115 H 18 134/91 95 11/09/18 19:34 131 H 20 144/97 94 L 11/09/18 17:14 99.1 F 134 H 18 135/80 92 L Intake and Output 11/09/18 11/10/18 11/10/18 22:59 06:59 14:59 Intake Total 125 Balance 125 Intake: Intake, IV Titration 125 Amount Sodium Chloride 0.9% 1, 125 000 ml @ 126 mls/hr IV . Q7H57M [facility] Rx#:[id number] Other: # Voids 3 Weight 106.594 kg PHYSICAL EXAMINATION: GENERAL: The patient is alert and oriented x3, not in any acute distress. Well developed, well nourished. HEENT: Pupils are round and equally reacting to light. EOMI. No scleral icterus. No conjunctival pallor. Normocephalic, atraumatic. No pharyngeal erythema. No thyromegaly. CARDIOVASCULAR: S1 and S2 present. No murmurs, rubs, or gallops. PULMONARY: Good air entry into bilateral lung mccartney mild expiratory wheezing and rhonchus breath sounds ABDOMEN: Soft, nontender, nondistended, normoactive bowel sounds. No palpable organomegaly. MUSCULOSKELETAL: No joint swelling or deformity. EXTREMITIES: No cyanosis, clubbing, or pedal edema. NEUROLOGICAL: Gross neurological examination did not reveal any focal deficits. SKIN: No rashes. Results CBC & Chem 7: 11/10/18 09:30 11/10/18 09:30 Labs: Abnormal Lab Results - Last 24 Hours (Table) 11/09/18 11/09/18 11/10/18 Range/Units 17:47 17:47 09:30 WBC 30.3 H (3.8-10.6) k/uL RBC (4.30-5.90) m/uL Hgb (13.0-17.5) gm/dL Hct (39.0-53.0) % Neutrophils # 24.6 H (1.3-7.7) k/uL Monocytes # 1.2 H (0-1.0) k/uL Sodium 128 L 134 L (137-145) mmol/L Chloride 93 L (98-107) mmol/L Glucose 149 H 121 H (74-99) mg/dL Osmolality 278 L (280-301) mosm/kg Calcium 8.3 L (8.4-10.2) mg/dL ALT 15 L (21-72) U/L Creatine Kinase 255 H (55-170) U/L TSH 0.460 L (0.465-4.680) mIU/L 11/10/18 Range/Units 09:30 WBC 30.3 H (3.8-10.6) k/uL RBC 4.20 L (4.30-5.90) m/uL Hgb 12.8 L (13.0-17.5) gm/dL Hct 38.8 L (39.0-53.0) % Neutrophils # (1.3-7.7) k/uL Monocytes # (0-1.0) k/uL Sodium (137-145) mmol/L Chloride (98-107) mmol/L Glucose (74-99) mg/dL Osmolality (280-301) mosm/kg Calcium (8.4-10.2) mg/dL ALT (21-72) U/L Creatine Kinase (55-170) U/L TSH (0.465-4.680) mIU/L Microbiology - Last 24 Hours (Table) 11/09/18 19:22 Urine Culture - Preliminary Urine,Clean Catch Thrombosis Risk Factor Assmnt - Choose All That Apply Any of the Below Risk Factors Present?: No Other Risk Factors: Yes Each Risk Factor Represents 2 Points: Age 61-74 years Other congenital or acquired thrombophilia - If yes, enter type in comment: No Thrombosis Risk Factor Assessment Total Risk Factor Score: 2 Thrombosis Risk Factor Assessment Level: Low Risk Assessment and Plan Plan: -Generalized weakness and lethargy: Probably related to hyponatremia PT and OT. Consulted patient will continued on IV fluids but will cut down the IV fluids and hyponatremia workup as mentioned above -Leukocytosis: Patient repeat chest x-ray showing significant infiltrate in the right upper lobe, patient probably has come in today quite pneumonia will be started on Rocephin continuous oh doxycycline -COPD with mild acute exacerbation patient will be started on inhaled steroids and inhalational treatments if he doesn't improve then may need systemic steroids -Type 2 diabetes mellitus -hypertension -Schizophrenia DVT prophylaxis a saphenous heparin and. GI prophylaxis with Pepcid
[2018-11-10] MEDS: HEPARIN SODIUM,PORCINE 5,000 UNIT/ML 1 ML VIAL SQ SCH ×2 (15:23→23:26)
[2018-11-10] MEDS: methylPREDNISolone SOD SUCCI 40 MG/ML 1 ML VIAL IV SCH ×2 (15:23→23:26)
[2018-11-10] MEDS: IPRATROPIUM-ALBUTEROL 3 ML NEB INHALATION SCH ×2 (16:39→20:38)
[2018-11-10] MEDS: CARVEDILOL 3.125 MG TAB PO SCH (18:54)
--- NOTE | 2018-11-10 19:00 | CONS ---
CONSULTATION PULMONARY/CRITICAL CARE CONSULTATION: DATE OF SERVICE: 11/10/2018 This is a 63-year-old male, a poor historian. He apparently presented to the emergency department via EMS for generalized weakness. He apparently complained of feeling weak that morning. He apparently states he sat down, was too weak to even get up. He was evaluated there in the emergency room. The patient was found to have some chest x-ray abnormalities and he was admitted primarily for COPD exacerbation and pneumonia. The patient is a very poor historian, very heavy smoker. He continues to smoke cigarettes. He does not appear to be in any respiratory distress at this time, although he does have a cough that is congested-sounding. He states he is not able to really cough it up and out, and anything he does get up he swallows. He denies any fever or chills. He denies any chest pain or chest discomfort. No nausea, vomiting or diarrhea. The patient was placed in an isolation room because apparently he was discovered to have bedbugs. He has areas of a rash and excoriation all over his body, particularly in the lower extremities. HOME MEDICATIONS: His home medications include: 1. Prozac. 2. Nicotine patch. 3. Catapres. 4. Risperidone. ALLERGIES: SULFA ANTIBIOTICS. MEDICAL HISTORY: Medical history is apparently positive for: 1. Hypertension. 2. Chronic tobacco dependence. 3. Possibly COPD. SURGICAL HISTORY: Surgical history includes previous orthopedic procedures and sinus surgery. SOCIAL HISTORY: Positive for ongoing tobacco use and nicotine addiction. He smokes more than a pack a day and has done so since the age of 14. FAMILY HISTORY: Family history cannot be relied upon. In fact, he cannot really give family history. REVIEW OF SYSTEMS: Review of systems is unreliable. CONSTITUTIONAL: Weakness, confusion. NEUROLOGIC: Negative. HEENT: Negative. CARDIOVASCULAR: Negative. PULMONARY: Chest congestion, cough without much phlegm production. GI: Negative. : Negative. RHEUMATOLOGIC: Negative. IMMUNOLOGIC: Negative. ENDOCRINOLOGIC: Negative. DERMATOLOGIC: Negative. PHYSICAL EXAMINATION: VITAL SIGNS: Current vital signs are reviewed. Temperature is 98.3, heart rate 92, respiratory rate 22, blood pressure 132/82, mean 98, room-air saturation 94%. GENERAL: Appears in no acute distress. HEENT: HEENT examination is grossly unremarkable. Mucous membranes are moist. No oral lesions. NECK: Supple. Full range of motion. No adenopathy. Neck veins are flat. CARDIOVASCULAR: Cardiovascular examination reveals diffuse coarse rhonchi, a few scattered wheezes. No crackles. Breath sounds are equal bilaterally. ABDOMEN: Obese. Bowel sounds are heard. EXTREMITIES: Intact. Minimal edema. SKIN: Skin shows areas of rash and excoriation from itching. NEUROLOGIC: Neurologic examination is difficult to assess. He appears to be relatively alert. He does move all 4 extremities well. LAB DATA/IMAGING: Lab data include a white count of 30.3, hemoglobin 12.8, hematocrit 38.8, platelet count 208,000. PT, INR and PTT all normal. Sodium 134, potassium 4.3, chloride 99, CO2 26. Anion gap is 9. BUN and creatinine were 14 and 1.09. N-terminal proBNP was 505. TSH was 0.460. Urine is negative. Chest x-rays are reviewed and show patchy infiltrates bilaterally, most prominent in the right upper lobe. There are also some patchy bibasilar infiltrates, left greater than right. This most likely represents pneumonia in this patient. Medications are reviewed and will be adjusted accordingly. ASSESSMENT: 1. Right upper lobe pneumonia and possibly bilateral pneumonia in a patient with likely chronic obstructive pulmonary disease. 2. Mild/moderate chronic obstructive pulmonary disease exacerbation. 3. History of hypertension. 4. Bedbugs. 5. Unreliable history. 6. Mental status changes. 7. Obesity. PLAN: The patient's medications are reviewed. He will be placed on long-acting beta agonist and inhaled corticosteroid. We will make sure he is on DuoNeb. Because he comes from the community, the patient will have Rocephin and Zithromax. Will give him a few doses of corticosteroids. Additional recommendations and suggestions are forthcoming. Prognosis is guarded. He is a very poor historian. MMODL / IJN: [id number] /
[2018-11-10] MEDS: SYMBICORT 160-4.5 MCG INHALER INHALATION SCH (20:38)
[2018-11-10 20:58] LABS: Glucose,Whole Blood 149 mg/dL (75-99)
[2018-11-10] MEDS ORDERED: LEVOFLOXACIN 750MG-D5W PMX 750 MG in DEXTROSE/WATER 1 150ML.BAG IVPB SCH (21:00)
[2018-11-10] MEDS ORDERED: DOXYCYCLINE 100 MG CAP PO SCH (21:00)
[2018-11-10] MEDS: FAMOTIDINE 20 MG TAB PO SCH (21:18)
[2018-11-10] MEDS: INSULIN ASPART (NovoLOG) 100 UNIT/ML VIAL SQ SCH (21:19)
[2018-11-10] MEDS: risperiDONE 1 MG TAB PO SCH (21:20)
[2018-11-10] MEDS: AZITHROMYCIN 500 MG TAB PO SCH (21:20)
[2018-11-11] MEDS: SODIUM CHLORIDE 0.9% 1,000 ML IV SCH ×3 (04:10→22:56)
[2018-11-11 07:46] LABS: HCT 39.8 % (39.0-53.0); HGB 12.7 gm/dL (13.0-17.5); MCH 30.5 pg (25.0-35.0); MCV 95.4 fL (80.0-100.0); Mean Platelet Volume 7.3; Platelet Count 209 k/uL (150-450); RBC 4.17 m/uL (4.30-5.90); RDW 13.4 % (11.5-15.5); WBC 28.8 k/uL (3.8-10.6)
[2018-11-11 07:48] LABS: Glucose,Whole Blood 214 mg/dL (75-99)
--- NOTE | 2018-11-11 07:57 | P.CONS ---
History of Present Illness - Reason for Consult Consult date: 11/10/18 Pneumonia Requesting physician: Joshua Carreno - Chief Complaint Weakness and coughx few days - History of Present Illness Patient is a 63 year male who was brought into the ER at [facility] for evolution of increasing weakness the patient said his symptoms started the day he presented to hospital he was too weak to get up and walk around and apparently was on the floor unable to get up patient friends called the EMS the patient also have a congested cough going on for the last few days denies having any URI symptoms he did bring up some occasional sputum but no hemoptysis denies any pleuritic chest pain no nausea no vomiting or choking on the food no abdominal pain no diary and no burning or frequency of urine on presentation hospital but did have low-grade fever of 99 he did have elevated white count 30,000 repeat a chest x-ray is now showing evidence of right upper lobe and left lower lobe multifocal pneumonia patient was started on Rocephin and admitted to the hospital infectious disease was consulted for further recommendations regarding antibiotic therapy Review of Systems Positive points has been mentioned in HPI rest of the systems are negative Past Medical History Past Medical History: Diabetes Mellitus, Hypertension History of Any Multi-Drug Resistant Organisms: None Reported Past Surgical History: Orthopedic Surgery Additional Past Surgical History / Comment(s): sinus sx Past Anesthesia/Blood Transfusion Reactions: No Reported Reaction Past Psychological History: Schizophrenia Smoking Status: Current every day smoker Past Alcohol Use History: None Reported Past Drug Use History: None Reported Medications and Allergies Home Medications Medication Instructions Recorded Confirmed Type FLUoxetine HCL [PROzac] 20 mg PO DAILY #30 cap 07/10/16 11/10/18 Rx cloNIDine HCL [Catapres] 0.1 mg PO BID #60 tab 07/10/16 11/10/18 Rx risperiDONE 3 mg PO BID #60 tablet 07/10/16 11/10/18 Rx Allergies Allergy/AdvReac Type Severity Reaction Status Date / Time Sulfa (Sulfonamide Allergy Rash/Hives Verified 11/09/18 17:54 Antibiotics) Physical Exam Vitals: Vital Signs Temp Pulse Pulse Resp BP BP Pulse Ox 11/10/18 03:00 127/76 11/09/18 22:12 97.9 F 119 H 22 147/105 11/09/18 21:12 115 H 18 134/91 95 11/09/18 19:34 131 H 20 144/97 94 L 11/09/18 17:14 99.1 F 134 H 18 135/80 92 L Intake and Output 11/09/18 11/10/18 11/10/18 22:59 06:59 14:59 Intake Total 125 Balance 125 Intake: Intake, IV Titration 125 Amount Sodium Chloride 0.9% 1, 125 000 ml @ 75 mls/hr IV . [id number] [facility] Rx#:[id number] Other: # Voids 3 1 Weight 106.594 kg GENERAL DESCRIPTION: Middle-aged male lying in bed, no distress. No tachypnea or accessory muscle of respiration use. HEENT: Shows Pallor , no scleral icterus. Oral mucous membrane is dry. No pharyngeal erythema or thrush NECK: Trachea central, no thyromegaly. LUNGS: Unlabored breathing. Coarse breath sound bilaterally with occasional wheeze . HEART: S1, S2, regular rate and rhythm. No loud murmur ABDOMEN: Soft, no tenderness , guarding or rigidity, no organomegaly EXTREMITIES: No edema of feet. SKIN: No rash, no masses palpable. NEUROLOGICAL: The patient is awake, alert, oriented x3, mood and affect normal. Results CBC & Chem 7: 11/11/18 07:07 11/10/18 09:30 Labs: Abnormal Lab Results - Last 24 Hours (Table) 11/09/18 11/09/18 11/10/18 Range/Units 17:47 17:47 09:30 WBC 30.3 H (3.8-10.6) k/uL RBC (4.30-5.90) m/uL Hgb (13.0-17.5) gm/dL Hct (39.0-53.0) % Neutrophils # 24.6 H (1.3-7.7) k/uL Monocytes # 1.2 H (0-1.0) k/uL Sodium 128 L 134 L (137-145) mmol/L Chloride 93 L (98-107) mmol/L Glucose 149 H 121 H (74-99) mg/dL Osmolality 278 L (280-301) mosm/kg Calcium 8.3 L (8.4-10.2) mg/dL ALT 15 L (21-72) U/L Creatine Kinase 255 H (55-170) U/L TSH 0.460 L (0.465-4.680) mIU/L 11/10/18 Range/Units 09:30 WBC 30.3 H (3.8-10.6) k/uL RBC 4.20 L (4.30-5.90) m/uL Hgb 12.8 L (13.0-17.5) gm/dL Hct 38.8 L (39.0-53.0) % Neutrophils # (1.3-7.7) k/uL Monocytes # (0-1.0) k/uL Sodium (137-145) mmol/L Chloride (98-107) mmol/L Glucose (74-99) mg/dL Osmolality (280-301) mosm/kg Calcium (8.4-10.2) mg/dL ALT (21-72) U/L Creatine Kinase (55-170) U/L TSH (0.465-4.680) mIU/L Microbiology - Last 24 Hours (Table) 11/09/18 19:22 Urine Culture - Preliminary Urine,Clean Catch Assessment and Plan Assessment: 1-patient presented to hospital with generalized weakness in this patient also have a congested cough with evidence of right upper and left lower lobe infiltrate likely community acquired pneumonia in this patient did have a history of underlying COPD and heavy smoking we'll need to cover for routine community-acquired pathogen clinically doubt resistant gram-positive or gram-negative infection 2-sulfa ALLERGY Plan: 1-Rocephin 1 g daily and Zithromax 500 by mouth daily 2-obtain sputum for Gram stain and culture we will follow on clinical condition and culture to further adjust medication if needed Thank you for this consultation will follow this patient along with you
[2018-11-11 08:03] LABS: African American GFR (CKD) >90 (>60 ml/min/1.73 sqM); Anion Gap 6 mmol/L; Blood Urea Nitrogen 13 mg/dL (9-20); Calcium 8.5 mg/dL (8.4-10.2); Carbon Dioxide 27 mmol/L (22-30); Chloride 103 mmol/L (98-107); Glucose 153 mg/dL (74-99); Potassium 4.6 mmol/L (3.5-5.1); Sodium 136 mmol/L (137-145)
[2018-11-11] MEDS: IPRATROPIUM-ALBUTEROL 3 ML NEB INHALATION SCH ×4 (08:25→20:24)
[2018-11-11] MEDS: SYMBICORT 160-4.5 MCG INHALER INHALATION SCH ×2 (08:25→20:24)
[2018-11-11] MEDS: NICOTINE 21MG/24HR PATCH TRANSDERM SCH (08:47)
[2018-11-11] MEDS: FAMOTIDINE 20 MG TAB PO SCH ×2 (08:47→22:10)
[2018-11-11] MEDS: INSULIN ASPART (NovoLOG) 100 UNIT/ML VIAL SQ SCH ×4 (08:48→22:08)
[2018-11-11] MEDS: methylPREDNISolone SOD SUCCI 40 MG/ML 1 ML VIAL IV SCH ×3 (08:48→22:57)
[2018-11-11] MEDS: FLUoxetine HCL 20 MG CAP PO SCH (08:48)
[2018-11-11] MEDS: CARVEDILOL 3.125 MG TAB PO SCH ×2 (08:48→18:23)
[2018-11-11] MEDS: risperiDONE 1 MG TAB PO SCH ×2 (08:49→22:09)
[2018-11-11] MEDS: HEPARIN SODIUM,PORCINE 5,000 UNIT/ML 1 ML VIAL SQ SCH ×3 (08:50→22:57)
[2018-11-11] MEDS: AZITHROMYCIN 500 MG TAB PO SCH (08:50)
--- NOTE | 2018-11-11 11:11 | P.PN ---
Subjective Progress Note Date: 11/11/18 Principal diagnosis: Right upper lobe pneumonia and possibly bilateral pneumonia, COPD exacerbation On 11/11/2018 patient seen in follow-up on medical surgical floor, he is awake and alert, he states his breathing is improving today, less wheezy, less dyspneic, lung sounds reveal scattered end expiratory wheezes, but overall patient sounds better today. No complaints of chest pain, occasional cough, and patient states he just swallows mucus. No fever or chills, room air pulse ox is 94%, blood and urine cultures showed no growth, today's labs shows a down trending white blood cell count, 28.8 down from 30.3 on yesterday's labs, hemoglobin is 12.7, electrolytes and renal profile are unremarkable. Pro- calcitonin came back elevated at 3.91 supporting diagnosis of infectious process likely related to pneumonia. We'll switch the patient's abiotic coverage to Rocephin and Zithromax for community-acquired pneumonia Objective - Vital Signs Vital signs: Vital Signs Temp 98.2 F 11/11/18 07:00 Pulse 92 11/11/18 08:43 Resp 16 11/11/18 07:00 BP 144/89 11/11/18 07:00 Pulse Ox 94 L 11/11/18 07:00 Intake & Output 11/10/18 11/11/18 11/11/18 18:59 06:59 18:59 Intake Total 720 Output Total 1225 Balance 720 -1225 Intake: Oral 720 Output: Urine 1225 Other: Voiding Method Urinal # Voids 1 2 - Exam GENERAL EXAM: Alert, pleasant, 63-year-old white female, on room air, with a pulse ox of 94% comfortable in no apparent distress. HEAD: Normocephalic/atraumatic. EYES: Normal reaction of pupils, equal size. Conjunctiva pink, sclera white. NOSE: Clear with pink turbinates. THROAT: No erythema or exudates. NECK: No masses, no JVD, no thyroid enlargement, no adenopathy. CHEST: No chest wall deformity. Symmetrical expansion. LUNGS: Equal air entry with scattered end expiratory wheezes, no rhonchi or dullness. CVS: Regular rate and rhythm, normal S1 and S2, no gallops, no murmurs, no rubs ABDOMEN: Soft, nontender. No hepatosplenomegaly, normal bowel sounds, no guarding or rigidity. EXTREMITIES: No clubbing, no edema, no cyanosis, 2+ pulses and upper and lower extremities. MUSCULOSKELETAL: Muscle strength and tone normal. SPINE: No scoliosis or deformity SKIN: No rashes CENTRAL NERVOUS SYSTEM: Alert and oriented -3. No focal deficits, tone is normal in all 4 extremities. PSYCHIATRIC: Alert and oriented -3. Appropriate affect. Intact judgment and insight. - Labs CBC & Chem 7: 11/11/18 07:07 11/11/18 07:07 Labs: Abnormal Lab Results - Last 24 Hours (Table) 11/10/18 11/10/18 11/10/18 Range/Units 09:30 09:30 20:54 WBC (3.8-10.6) k/uL RBC (4.30-5.90) m/uL Hgb (13.0-17.5) gm/dL Sodium (137-145) mmol/L Glucose (74-99) mg/dL POC Glucose (mg/dL) 149 H (75-99) mg/dL Osmolality 278 L (280-301) mosm/kg Procalcitonin 3.91 H (0.02-0.09) ng/mL 11/11/18 11/11/18 11/11/18 Range/Units 07:07 07:07 07:43 WBC 28.8 H (3.8-10.6) k/uL RBC 4.17 L (4.30-5.90) m/uL Hgb 12.7 L (13.0-17.5) gm/dL Sodium 136 L (137-145) mmol/L Glucose 153 H (74-99) mg/dL POC Glucose (mg/dL) 214 H (75-99) mg/dL Osmolality (280-301) mosm/kg Procalcitonin (0.02-0.09) ng/mL Microbiology - Last 24 Hours (Table) 11/09/18 19:22 Urine Culture - Final Urine,Clean Catch 11/09/18 19:32 Blood Culture - Preliminary Blood No Growth after 24 hours Assessment and Plan Plan: Assessment: #1. Dyspnea, related to acute coronary acquired pneumonia, chest x-ray showing right upper lobe pneumonia and possibly bilateral pneumonia, community acquired #2. Mild to moderate exacerbation of chronic obstructive pulmonary disease and #3. History of hypertension #4. Schizophrenia #5. Obesity #6. Extensive history of smoking, patient has smoked at least 40 years 1 pack a day, and is a current smoker. #7. Bedbug infestation Plan: Continue current medical treatment, continue Rocephin and Zithromax, collect sputum culture, patient is feeling better, continue with nebulized bronchodilators and IV steroids. Patient has had no fever or chills, white blood cell count is down trending slightly, ID service has been consulted I performed a history & physical examination of the patient and discussed their management with my nurse practitioner, Iraida Major. I reviewed the nurse practitioner's note and agree with the documented findings and plan of care. Lung sounds are positive for diffuse wheezes throughout the lung mccartney. The findings and the impression was discussed with the patient. I attest to the documentation by the nurse practitioner. Time with Patient: Less than 30
[2018-11-11 11:53] LABS: Glucose,Whole Blood 131 mg/dL (75-99)
--- NOTE | 2018-11-11 16:37 | P.PN ---
Subjective Progress Note Date: 11/11/18 Principal diagnosis: This is a 63-year-old male who was at admitted for generalized weakness and found to be hyponatremic and had a elevated white count of 30,000 and is being closely monitored. Patient is sleeping and appears to be in no acute distress. Patient is arousable. Patient denies any chest pain, shortness of breath, or palpitations at this time. Patient denies any nausea or vomiting and is been tolerating diet. Patient is afebrile at this time. Per nursing staff patient was also positive for scabies and bedbugs and treated in the ER. All belongings were bagged and placed in another room. Guarded prognosis. Objective - Vital Signs Vital signs: Vital Signs Temp 98.9 F 11/11/18 14:36 Pulse 76 11/11/18 15:44 Resp 16 11/11/18 14:36 BP 148/83 11/11/18 14:36 Pulse Ox 93 L 11/11/18 14:36 Intake & Output 11/10/18 11/11/18 11/11/18 18:59 06:59 18:59 Intake Total 720 Output Total 1225 Balance 720 -1225 Intake: Oral 720 Output: Urine 1225 Other: Voiding Method Urinal # Voids 1 2 2 - Exam Gen: This is a 63-year-old male sleeping in no acute distress. Patient is easily arousable. Vital signs are stable. Temp is 98.2 oral, pulse is 79, respirations are 16, blood pressure is 144/89, oxygen saturation is 94% on room air. HEENT: Head is atraumatic, normocephalic. Pupils equal, round. Sclerae is anicteric. NECK: Supple. No JVD. No lymphadenopathy. No thyromegaly. LUNGS: Diminished breath sounds at the bases with mild expiratory wheezing noted on exam. No intercostal retractions. HEART: Regular rate and rhythm. No murmur. ABDOMEN: Soft. Bowel sounds are present. No masses. No tenderness. EXTREMITIES: No pedal edema. No calf tenderness. NEUROLOGICAL: Patient is sleeping but arousable, alert and oriented x3. Cranial nerves 2 through 12 are grossly intact. SKIN: dry, scaling noted - Labs CBC & Chem 7: 11/11/18 07:07 11/11/18 07:07 Labs: Abnormal Lab Results - Last 24 Hours (Table) 11/10/18 11/10/18 11/11/18 Range/Units 09:30 20:54 07:07 WBC 28.8 H (3.8-10.6) k/uL RBC 4.17 L (4.30-5.90) m/uL Hgb 12.7 L (13.0-17.5) gm/dL Sodium (137-145) mmol/L Glucose (74-99) mg/dL POC Glucose (mg/dL) 149 H (75-99) mg/dL Procalcitonin 3.91 H (0.02-0.09) ng/mL 11/11/18 11/11/18 11/11/18 Range/Units 07:07 07:43 11:51 WBC (3.8-10.6) k/uL RBC (4.30-5.90) m/uL Hgb (13.0-17.5) gm/dL Sodium 136 L (137-145) mmol/L Glucose 153 H (74-99) mg/dL POC Glucose (mg/dL) 214 H 131 H (75-99) mg/dL Procalcitonin (0.02-0.09) ng/mL Microbiology - Last 24 Hours (Table) 11/09/18 19:22 Urine Culture - Final Urine,Clean Catch 11/09/18 19:32 Blood Culture - Preliminary Blood No Growth after 24 hours Assessment and Plan Assessment: Generalized weakness and lethargy: Probably related to hyponatremia. PT/OT consulted. She will be continued on IV fluids and continue to monitor vital signs and labs closely. Leukocytosis: Patient's repeat x-ray yesterday showed significant infiltrate in the right upper lobe. Pulmonary was consulted. Patient is on Rocephin and and oral Zithromax COPD with mild acute exacerbation: Patient is on IV steroids and inhalational treatments. We'll transition to oral steroids tomorrow. Diabetes mellitus type 2 Hypertension Schizophrenia DVT prophylaxis: Subq heparin GI prophylaxis: Pepcid Recommendations and discussion: Recommend to continue current medications, management, and symptomatic treatment. We'll continue to monitor vitals and labs closely. Pulmonary and infectious disease are following. Continue with IV antibiotic therapy, inhalat ion treatments, and IV steroids. Will transition to oral steroids tomorrow. Guarded prognosis. Further recommendations to follow.
[2018-11-11 16:56] LABS: Glucose,Whole Blood 163 mg/dL (75-99)
[2018-11-11 19:33] LABS: Creatinine,Urine Random 121.7 mg/dL
[2018-11-11 20:43] LABS: Glucose,Whole Blood 175 mg/dL (75-99)
[2018-11-11 22:09] LABS: Glucose,Whole Blood 130 mg/dL (75-99)
--- NOTE | 2018-11-12 06:18 | PN ---
PROGRESS NOTE DATE OF SERVICE: 11/11/2018 REASON FOR FOLLOWUP: Pneumonia. INTERVAL HISTORY: The patient is currently afebrile, has been breathing comfortably. The patient continued to have some cough, not bringing up any sputum. No chest pain. No nausea, no vomiting. No abdominal pain and no diarrhea. PHYSICAL EXAMINATION: On examination, blood pressure 152/94 with a pulse of 82, temperature 97.8. He is 94% on room air. General description is a middle-aged male lying in bed in no distress. RESPIRATORY SYSTEM: Unlabored breathing. Decreased intensity in breath sounds. No wheeze today. HEART: S1, S2. Regular rate and rhythm. ABDOMEN: Soft, no tenderness. EXTREMITIES: Trace edema of the feet. LABS: Hemoglobin is 12.7, white count 28.8. BUN of 13, creatinine 0.85. DIAGNOSTIC IMPRESSION AND PLAN: Patient admitted to hospital with difficulty breathing with a fever with concern for pneumonia, multifocal possibly community acquired. Patient is covered with Rocephin and Zithromax to continue. Try to finish therapy on antibiotics. Continue with supportive care. MMODL / IJN: [id number] /
[2018-11-12 06:49] LABS: Glucose,Whole Blood 132 mg/dL (75-99)
[2018-11-12] MEDS: IPRATROPIUM-ALBUTEROL 3 ML NEB INHALATION SCH ×4 (08:44→19:53)
[2018-11-12] MEDS: SYMBICORT 160-4.5 MCG INHALER INHALATION SCH ×2 (08:44→19:39)
[2018-11-12] MEDS: INSULIN ASPART (NovoLOG) 100 UNIT/ML VIAL SQ SCH ×4 (09:08→21:41)
[2018-11-12] MEDS: NICOTINE 21MG/24HR PATCH TRANSDERM SCH (09:11)
[2018-11-12] MEDS: risperiDONE 1 MG TAB PO SCH ×2 (09:11→21:40)
[2018-11-12] MEDS: CARVEDILOL 3.125 MG TAB PO SCH ×2 (09:11→18:03)
[2018-11-12] MEDS: methylPREDNISolone SOD SUCCI 40 MG/ML 1 ML VIAL IV SCH (09:11)
[2018-11-12] MEDS: HEPARIN SODIUM,PORCINE 5,000 UNIT/ML 1 ML VIAL SQ SCH ×2 (09:11→16:48)
[2018-11-12] MEDS: FAMOTIDINE 20 MG TAB PO SCH ×2 (09:12→21:41)
[2018-11-12] MEDS: AZITHROMYCIN 500 MG TAB PO SCH (09:12)
[2018-11-12] MEDS: FLUoxetine HCL 20 MG CAP PO SCH (09:12)
[2018-11-12] MEDS ORDERED: 0.9% NACL WITH KCL 20 MEQ/L 1,000 ML IV SCH (10:15)
[2018-11-12 10:30] LABS: Basophils % (A) 0 %; Eosinophils # (A) 0.1 k/uL (0-0.7); Eosinophils % (A) 0 %; HCT 39.1 % (39.0-53.0); HGB 12.6 gm/dL (13.0-17.5); Lymphocytes # (A) 4.3 k/uL (1.0-4.8); Lymphocytes % (A) 19 %; MCH 30.8 pg (25.0-35.0); MCHC 32.4 g/dL (31.0-37.0); MCV 95.1 fL (80.0-100.0); Mean Platelet Volume 7.6; Monocytes # (A) 0.7 k/uL (0-1.0); Monocytes % (A) 3 %; Neutrophils # (A) 16.8 k/uL (1.3-7.7); Neutrophils % (A) 75 %; Platelet Count 238 k/uL (150-450); RBC 4.11 m/uL (4.30-5.90); RDW 14.2 % (11.5-15.5); WBC 22.3 k/uL (3.8-10.6)
[2018-11-12 10:37] LABS: African American GFR (CKD) >90 (>60 ml/min/1.73 sqM); Anion Gap 5 mmol/L; Blood Urea Nitrogen 17 mg/dL (9-20); Calcium 8.5 mg/dL (8.4-10.2); Carbon Dioxide 29 mmol/L (22-30); Chloride 105 mmol/L (98-107); Glucose 171 mg/dL (74-99); Potassium 4.6 mmol/L (3.5-5.1); Sodium 139 mmol/L (137-145)
[2018-11-12] MEDS: predniSONE 20 MG TAB PO SCH (11:24)
[2018-11-12] MEDS ORDERED: SODIUM CHLORIDE 0.9% 1,000 ML IV SCH (11:30)
[2018-11-12 11:36] LABS: Glucose,Whole Blood 134 mg/dL (75-99)
--- NOTE | 2018-11-12 13:42 | P.PN ---
Subjective Progress Note Date: 11/12/18 Principal diagnosis: Right upper lobe pneumonia and possibly bilateral pneumonia, COPD exacerbation On 11/11/2018 patient seen in follow-up on medical surgical floor, he is awake and alert, he states his breathing is improving today, less wheezy, less dyspneic, lung sounds reveal scattered end expiratory wheezes, but overall patient sounds better today. No complaints of chest pain, occasional cough, and patient states he just swallows mucus. No fever or chills, room air pulse ox is 94%, blood and urine cultures showed no growth, today's labs shows a down trending white blood cell count, 28.8 down from 30.3 on yesterday's labs, hemoglobin is 12.7, electrolytes and renal profile are unremarkable. Pro- calcitonin came back elevated at 3.91 supporting diagnosis of infectious process likely related to pneumonia. We'll switch the patient's abiotic coverage to Rocephin and Zithromax for community-acquired pneumonia. On 11/12/2018 patient seen in follow-up. He states his breathing is improving, he is on room air with a pulse ox of 93%, afebrile, hemodynamically stable, lung sounds are positive for a few end expiratory wheezing, overall sounding much better. No fever or chills, no complaints of chest pain, no hemoptysis. Urine cultures are negative. Today's labs have been reviewed, showing a downward trend in the white blood cell count down to 22.3, hemoglobin of 12.6, electrolytes and renal profile were within normal limits. Antibiotic coverage is with Rocephin and Zithromax, patient has been transitioned to oral prednisone Objective - Vital Signs Vital signs: Vital Signs Temp 98.7 F 11/12/18 07:00 Pulse 82 11/12/18 12:11 Resp 16 11/12/18 07:00 BP 157/99 11/12/18 07:00 Pulse Ox 93 L 11/12/18 07:00 Intake & Output 11/11/18 11/12/18 11/12/18 18:59 06:59 18:59 Intake Total 1020 Output Total 250 Balance 770 Intake: Intake, IV Titration 900 Amount Sodium Chloride 0.9% 1, 900 000 ml @ 75 mls/hr IV . [id number] [facility] Rx#:[id number] Oral 120 Output: Urine 250 Other: Voiding Method Urinal Urinal # Voids 2 1 # Bowel Movements 3 - Exam GENERAL EXAM: Alert, pleasant, 63-year-old white female, on room air, with a pulse ox of 94% comfortable in no apparent distress. HEAD: Normocephalic/atraumatic. EYES: Normal reaction of pupils, equal size. Conjunctiva pink, sclera white. NOSE: Clear with pink turbinates. THROAT: No erythema or exudates. NECK: No masses, no JVD, no thyroid enlargement, no adenopathy. CHEST: No chest wall deformity. Symmetrical expansion. LUNGS: Equal air entry with scattered end expiratory wheezes, no rhonchi or dullness. CVS: Regular rate and rhythm, normal S1 and S2, no gallops, no murmurs, no rubs ABDOMEN: Soft, nontender. No hepatosplenomegaly, normal bowel sounds, no guarding or rigidity. EXTREMITIES: No clubbing, no edema, no cyanosis, 2+ pulses and upper and lower extremities. MUSCULOSKELETAL: Muscle strength and tone normal. SPINE: No scoliosis or deformity SKIN: No rashes CENTRAL NERVOUS SYSTEM: Alert and oriented -3. No focal deficits, tone is normal in all 4 extremities. PSYCHIATRIC: Alert and oriented -3. Appropriate affect. Intact judgment and insight. - Labs CBC & Chem 7: 11/12/18 09:59 11/12/18 09:59 Labs: Abnormal Lab Results - Last 24 Hours (Table) 11/11/18 11/11/18 11/11/18 Range/Units 16:54 20:41 22:07 WBC (3.8-10.6) k/uL RBC (4.30-5.90) m/uL Hgb (13.0-17.5) gm/dL Neutrophils # (1.3-7.7) k/uL Glucose (74-99) mg/dL POC Glucose (mg/dL) 163 H 175 H 130 H (75-99) mg/dL 11/12/18 11/12/18 11/12/18 Range/Units 06:45 09:59 09:59 WBC 22.3 H (3.8-10.6) k/uL RBC 4.11 L (4.30-5.90) m/uL Hgb 12.6 L (13.0-17.5) gm/dL Neutrophils # 16.8 H (1.3-7.7) k/uL Glucose 171 H (74-99) mg/dL POC Glucose (mg/dL) 132 H (75-99) mg/dL 11/12/18 Range/Units 11:33 WBC (3.8-10.6) k/uL RBC (4.30-5.90) m/uL Hgb (13.0-17.5) gm/dL Neutrophils # (1.3-7.7) k/uL Glucose (74-99) mg/dL POC Glucose (mg/dL) 134 H (75-99) mg/dL Microbiology - Last 24 Hours (Table) 11/09/18 19:32 Blood Culture - Preliminary Blood No Growth after 48 hours Assessment and Plan Plan: Assessment: #1. Dyspnea, related to acute coronary acquired pneumonia, chest x-ray showing right upper lobe pneumonia and possibly bilateral pneumonia, community acquired #2. Mild to moderate exacerbation of chronic obstructive pulmonary disease and #3. History of hypertension #4. Schizophrenia #5. Obesity #6. Extensive history of smoking, patient has smoked at least 40 years 1 pack a day, and is a current smoker. #7. Bedbug infestation Plan: Patient is stable, we'll obtain a follow-up chest x-ray in the morning, has been transitioned to oral prednisone, continue with Rocephin and Zithromax, continue with nebulized bronchodilators, smoking cessation was strongly advised, however patient states he will probably still continue smoking. Anticipate discharge home in the next 24 hours if patient continues to improve. No acute events overnight, we will need follow-up appointment with Dr. Syed in the office in 7- 10 days after discharge. I performed a history & physical examination of the patient and discussed their management with my nurse practitioner, Iraida Major. I reviewed the nurse practitioner's note and agree with the documented findings and plan of care. Lung sounds are positive for diffuse wheezes throughout the lung mccartney. The findings and the impression was discussed with the patient. I attest to the documentation by the nurse practitioner. Time with Patient: Less than 30
--- NOTE | 2018-11-12 15:45 | P.PN ---
Subjective Progress Note Date: 11/12/18 Principal diagnosis: This is a 63-year-old male who was at admitted for generalized weakness and found to be hyponatremic and had a elevated white count of 30,000 and is being closely monitored. Patient is sleeping and appears to be in no acute distress. Patient is arousable. Patient denies any chest pain, shortness of breath, or palpitations at this time. Patient denies any nausea or vomiting and is been tolerating diet. Patient is afebrile at this time. Per nursing staff patient was also positive for scabies and bedbugs and treated in the ER. All belongings were bagged and placed in another room. Guarded prognosis. 11/12/2018 Patient is sitting up in bed in no acute distress. Patient states that his breathing has improved. Patient denies any chest pain, shortness of breath, or palpitations at this time. Patient is on room air. Patient has been afebrile. Patient denies any nausea or vomiting and has been tolerating diet. Discussed with the patient at length about bedbugs at the home. Patient states that his girlfriend is aware and is working on the situation. Patient was transitioned to oral prednisone today and tolerating well. Pulmonary is following. A repeat chest x-ray will be done in the morning. White blood count is trending down. Will continue to monitor closely. Objective - Vital Signs Vital signs: Vital Signs Temp 98.4 F 11/12/18 14:34 Pulse 79 11/12/18 14:34 Resp 16 11/12/18 14:34 BP 165/93 11/12/18 14:34 Pulse Ox 94 L 11/12/18 14:34 Intake & Output 11/11/18 11/12/18 11/12/18 18:59 06:59 18:59 Intake Total 1020 Output Total 250 200 Balance 770 -200 Intake: Intake, IV Titration 900 Amount Sodium Chloride 0.9% 1, 900 000 ml @ 75 mls/hr IV . [id number] [facility] Rx#:[id number] Oral 120 Output: Urine 250 200 Other: Voiding Method Urinal Urinal # Voids 2 1 # Bowel Movements 3 - Exam Gen: This is a 63-year-old male sleeping in no acute distress. Patient is easily arousable. Vital signs are stable. Temp is 98.7 oral, pulse is 62, respirations are 16, blood pressure is 157/99, oxygen saturation is 94% on room air. HEENT: Head is atraumatic, normocephalic. Pupils equal, round. Sclerae is anicteric. NECK: Supple. No JVD. No lymphadenopathy. No thyromegaly. LUNGS: Diminished breath sounds at the bases with mild expiratory wheezing noted on exam. Improved from yesterday. No intercostal retractions. HEART: Regular rate and rhythm. No murmur. ABDOMEN: Soft. Bowel sounds are present. Obese. No masses. No tenderness. EXTREMITIES: No pedal edema. No calf tenderness. NEUROLOGICAL: Patient is awake, alert and oriented x3. Cranial nerves 2 through 12 are grossly intact. SKIN: dry, multiple bug bites noted on bilateral upper and lower extremities with no erythema or swelling noted. Crusting and scabs are noted. - Labs CBC & Chem 7: 11/12/18 09:59 11/12/18 09:59 Labs: Abnormal Lab Results - Last 24 Hours (Table) 11/11/18 11/11/18 11/11/18 Range/Units 16:54 20:41 22:07 WBC (3.8-10.6) k/uL RBC (4.30-5.90) m/uL Hgb (13.0-17.5) gm/dL Neutrophils # (1.3-7.7) k/uL Glucose (74-99) mg/dL POC Glucose (mg/dL) 163 H 175 H 130 H (75-99) mg/dL 11/12/18 11/12/18 11/12/18 Range/Units 06:45 09:59 09:59 WBC 22.3 H (3.8-10.6) k/uL RBC 4.11 L (4.30-5.90) m/uL Hgb 12.6 L (13.0-17.5) gm/dL Neutrophils # 16.8 H (1.3-7.7) k/uL Glucose 171 H (74-99) mg/dL POC Glucose (mg/dL) 132 H (75-99) mg/dL 11/12/18 Range/Units 11:33 WBC (3.8-10.6) k/uL RBC (4.30-5.90) m/uL Hgb (13.0-17.5) gm/dL Neutrophils # (1.3-7.7) k/uL Glucose (74-99) mg/dL POC Glucose (mg/dL) 134 H (75-99) mg/dL Microbiology - Last 24 Hours (Table) 11/09/18 19:32 Blood Culture - Preliminary Blood No Growth after 48 hours Assessment and Plan Assessment: Generalized weakness and lethargy: Probably related to hyponatremia. PT/OT consulted. He will be continued on IV fluids and continue to monitor vital signs and labs closely. Leukocytosis: Improving. Patient is on Rocephin and and oral Zithromax COPD with mild acute exacerbation: Patient is on oral steroids and inhalational treatments. Diabetes mellitus type 2 Hypertension Schizophrenia DVT prophylaxis: Subq heparin GI prophylaxis: Pepcid Recommendations and discussion: Recommend to continue current medications, management, and symptomatic treatment. We'll continue to monitor vitals and labs closely. Pulmonary and infectious disease are following. Continue with IV antibiotic therapy, inhalation treatments, and oral steroids. Guarded prognosis. Further recommendations to follow. Possible discharge in 24 hours.
[2018-11-12 16:51] LABS: Glucose,Whole Blood 119 mg/dL (75-99)
[2018-11-12 20:18] LABS: Glucose,Whole Blood 142 mg/dL (75-99)
[2018-11-13] MEDS: HEPARIN SODIUM,PORCINE 5,000 UNIT/ML 1 ML VIAL SQ SCH ×2 (01:06→09:29)
[2018-11-13 07:25] LABS: Glucose,Whole Blood 95 mg/dL (75-99)
[2018-11-13] MEDS: INSULIN ASPART (NovoLOG) 100 UNIT/ML VIAL SQ SCH ×2 (07:29→12:37)
[2018-11-13] MEDS: IPRATROPIUM-ALBUTEROL 3 ML NEB INHALATION SCH ×3 (07:43→16:39)
[2018-11-13] MEDS: SYMBICORT 160-4.5 MCG INHALER INHALATION SCH (07:43)
--- NOTE | 2018-11-13 07:58 | XR ---
EXAMINATION TYPE: XR chest 2V DATE OF EXAM: 11/13/2018 COMPARISON: 11/10/2018 HISTORY: 63-year-old male follow-up pneumonia TECHNIQUE: PA and lateral views FINDINGS: Heart upper limits of normal in size. Focal air space opacity right upper lobe is less confluence fro m prior exam. Some patchy density peripheral left base remains. No pleural effusion. IMPRESSION: Persistent but improving right upper lobe pneumonia. Also, persistent peripheral left basilar infiltr ate with slight improvement as well.
[2018-11-13] MEDS: FLUoxetine HCL 20 MG CAP PO SCH (09:28)
[2018-11-13] MEDS: NICOTINE 21MG/24HR PATCH TRANSDERM SCH (09:28)
[2018-11-13] MEDS: predniSONE 20 MG TAB PO SCH (09:28)
[2018-11-13] MEDS: AZITHROMYCIN 500 MG TAB PO SCH (09:28)
[2018-11-13] MEDS: CARVEDILOL 3.125 MG TAB PO SCH (09:28)
[2018-11-13] MEDS: FAMOTIDINE 20 MG TAB PO SCH (09:28)
[2018-11-13] MEDS: risperiDONE 1 MG TAB PO SCH (09:28)
[2018-11-13 10:37] VITALS: TEMP 97.7
--- NOTE | 2018-11-13 10:42 | PN ---
PROGRESS NOTE DATE OF SERVICE: 11/12/2018 REASON FOR FOLLOWUP: Pneumonia. INTERVAL HISTORY: The patient is currently afebrile. The patient has been breathing more comfortably, denies having any chest pain. He continued to have some cough but less productive, sputum still not provided. No nausea, no vomiting. No abdominal pain, no diarrhea. PHYSICAL EXAMINATION: Blood pressure 165/93 with a pulse of 79, temperature 98.4. He is 94% on room air. General description is a middle-aged male, lying in bed in no distress. RESPIRATORY SYSTEM: Unlabored breathing with decreased breath sounds at the base, occasional wheeze. HEART: S1, S2. Regular rate and rhythm. ABDOMEN: Soft, no tenderness. LABS: Hemoglobin is 12.6, white count of 2.3, BUN of 17, creatinine 0.84. DIAGNOSTIC IMPRESSION AND PLAN: Patient with admission to the hospital with difficulty breathing. He did have evidence of bilateral pneumonia, community-acquired, slowly clinically responding to the Rocephin and Zithromax, to continue. Try to obtain a sputum to determine antibiotics. Continue supportive care. MMODL / IJN: [id number] /
--- NOTE | 2018-11-13 11:33 | PN ---
PROGRESS NOTE This is a 63-year-old male who was admitted with a diagnosis of COPD exacerbation as well as right upper lobe and left lower lobe pneumonia. A more recent chest x-ray shows persistent infiltrates that have improved. Clinically, he is feeling much improved. He states his breathing is much better. He states that he is not really coughing up any phlegm. No fever and no chills. No chest congestion. His breathing is much less labored. From our perspective, the patient could possibly be discharged home. Will leave that up to the primary service who might be dealing with other issues. Current vital signs are reviewed. Temperature 97.9, heart rate 75, respiratory rate 14, blood pressure 177/90 mean 119, room air saturation is 100%. Appears in no acute distress. HEENT: Examination is grossly unremarkable. Nasal O2 is not noted. NECK: Supple. Full range of motion. No adenopathy, thyromegaly or neck vein distention. CARDIOVASCULAR: Examination reveals regular rhythm and rate. Heart rate is 75. S1, S2 normal. No S3, S4, or murmur. LUNGS: Reveal a few scattered expiratory rhonchi and wheezes. Breath sounds are improved. No crackles. Breath sounds are diminished throughout. Slight prolongation on forced maneuver. ABDOMEN: Soft. Bowel sounds are heard. EXTREMITIES: Intact. No cyanosis, clubbing, or edema. SKIN: Reveals a rash on that lower extremities particularly from excoriation and scratching of the skin from the a bed bug issue that he had earlier. NEUROLOGIC: Examination is brief but nonfocal. LABS: Reviewed. Nothing new from today. Chest x-rays from today is reviewed. Medications are reviewed. ASSESSMENT: 1. Chronic obstructive pulmonary disease exacerbation complicated by right upper lobe and left lower lobe pneumonia, much improved both clinically and radiographically. 2. History of hypertension. 3. Schizophrenia. 4. Obesity. 5. Ongoing tobacco use with nicotine addiction. 6. Bed bug infestation. PLAN: The patient is doing well. From our perspective, could be discharged. Will leave that to the primary service. Additional recommendations and suggestions are forthcoming. She should be discharged with some oral antibiotics for another 5 or 7 days. In addition, she should have a followup chest x-ray. Finally, she will be discharged home on a prednisone taper. Typically 30 or 40 mg a day for 3 or 4 days, decreasing by 10 mg every third or fourth day. Additional recommendations and suggestions are forthcoming. MMODL / IJN: [id number] /
[2018-11-13 11:55] LABS: Glucose,Whole Blood 109 mg/dL (75-99)
--- NOTE | 2018-11-13 15:09 | PN ---
PROGRESS NOTE DATE OF SERVICE: 11/13/2018 REASON FOR FOLLOWUP: Pneumonia. INTERVAL HISTORY: The patient is currently afebrile. Patient is breathing comfortably. He did have occasional cough. No chest pain. Not requiring any supplemental oxygen. No nausea, vomiting, abdominal pain, no diarrhea. PHYSICAL EXAMINATION: Blood pressure is 145/91 with a pulse of 86, temperature 97.7. He is 95% on room air. General description is a middle-aged male lying in bed in no distress. Respiratory system: Unlabored breathing, clear to auscultation anteriorly. Heart S1, S2. Regular rate and rhythm. Abdomen soft, no tenderness. LABS: No new labs have been obtained today. Blood culture negative. Urine is negative. DIAGNOSTIC IMPRESSION AND PLAN: Patient admitted to hospital with multifocal pneumonia, likely community acquired. Overall improvement on Rocephin, Zithromax. Finish therapy with oral Ceftin seven-day course in view of the community acquired pneumonia and close outpatient followup. Questions and concerns were answered. MMODL / IJN: [id number] /
[2018-11-13 15:31] VITALS: BP 168/89
[2018-11-13 16:40] VITALS: RESP 16
[2018-11-13 18:54] VITALS: PULSE 67
--- NOTE | 2018-11-13 23:42 | DS ---
DISCHARGE SUMMARY DATE OF SERVICE: 11/13/2018. FINAL DIAGNOSES: 1. Chronic obstructive pulmonary disease exacerbation with right upper lobe and left lower lobe pneumonia. 2. Hypertension. 3. Schizophrenia. 4. Obesity. 5. History of nicotine dependence. 6. History of bedbug infestation. 7. Diabetes mellitus type 2. 8. History of hypertension. 9. DVT prophylaxis. 10.GI prophylaxis. 11.Hyponatremia. DISCHARGE CONDITION: The patient is being discharged in stable condition with guarded prognosis. TOTAL TIME: 35 minutes. HISTORY OF PRESENT ILLNESS: This 63-year-old gentleman with a past history of multiple medical problems, admitted with hyponatremia, COPD acute exacerbation, as well as multifocal pneumonia. Patient treated with broad-spectrum IV antibiotics and bronchodilators. Dr. Syed and Dr. Reddy saw the patient. Patient improved significantly. Chest x-ray showed persistent improvement. Cultures were negative. At this time the patient will be discharged in stable condition with guarded prognosis. PHYSICAL EXAM: On exam, vitals are stable. Cardiovascular normal. Abdomen soft. Nervous System, no focal deficits. DISCHARGE DIET: Cardiac. DISCHARGE ACTIVITY: Limited. FOLLOWUP: 1. Follow up with Dr. Roque in 1 to 2 days. 2. Follow up with Dr. Syed as recommended. DISCHARGE MEDICATIONS: 1. Catapres 0.1 p.o. b.i.d. 2. Ceftin 500 mg p.o. b.i.d. for 3 days. 3. Coreg 3.125 mg p.o. b.i.d. 4. DuoNeb q.i.d. 5. Habitrol 14 daily. 6. Prozac 20 mg daily. 7. Risperdal 3 mg p.o. b.i.d. 8. Symbicort 4.5 two puffs b.i.d. 9. Zithromax 500 mg p.o. daily. Once again, the patient will be discharged in stable condition with guarded prognosis. MMODL / IJN: [id number] /
== END 2018-11-13 18:12 | disposition home or self-care (01) | DRG 190 ==
LOC: EC 17:10 → 4SSUR 20:32
PROVIDERS: ADMIT Hospitalist; ATTEND Hospitalist
DX: J44.0 Chronic obstructive pulmonary disease with (acute) lower respiratory infection (principal); J18.1 Lobar pneumonia, unspecified organism; E87.1 Hypo-osmolality and hyponatremia; J44.1 Chronic obstructive pulmonary disease with (acute) exacerbation; F20.9 Schizophrenia, unspecified; E86.1 Hypovolemia; E11.9 Type 2 diabetes mellitus without complications; B86 Scabies; B88.8 Other specified infestations; I10 Essential (primary) hypertension; F17.210 Nicotine dependence, cigarettes, uncomplicated; E66.9 Obesity, unspecified; Z68.32 Body mass index [BMI] 32.0-32.9, adult; Z71.6 Tobacco abuse counseling; Z79.899 Other long term (current) drug therapy; Z88.2 Allergy status to sulfonamides; Z98.890 Other specified postprocedural states
CPT/HCPCS: 36415; 70450; 71045; 71046; 80048; 80053; 81003; 82550; 82570; 83605; 83735; 83880; 83930; 83935; 84145; 84300; 84439; 84443; 84481; 84484; 85025; 85027; 85610; 85730; 87040; 87086; 93005; 94640; 94760; 96360; 96361; 99291

== ENCOUNTER 2018-12-23 16:21 | Inpatient (IN) | payer MEDICARE ==
--- NOTE | 2018-12-23 17:17 | ED ---
General Adult HPI - General Chief complaint: Weakness Stated complaint: WEAKNESS Time Seen by Provider: 12/23/18 17:05 - History of Present Illness Initial comments: The patient is a 63-year-old male with past medical history of schizophrenia who presents to the emergency room with reported weakness. The patient is a poor historian and provides minimal information. There is no family available at bedside. The patient states that he was diagnosed with pneumonia in October. He was supposed to fill antibiotics for the remainder of his course however stated that he did not. Over the past several days he has had a productive cough with green nasal drainage. He has had increased shortness of breath. His girlfriend did call EMS today. When they arrived they found the patient to be significantly disheveled. He was covered in bedbugs. The patient does have a petechial rash which she states is secondary to the bedbugs. He looks grossly dehydrated. 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 He is denying any headaches or visual changes. Denies any neck pain or stiffness. No chest pain. Denies abdominal pain. No changes in his bowel or bladder habits. Denies dysuria, hematuria or difficulty voiding. Denies diarrhea, constipation, melanotic stools or hematochezia. The remainder of the HPI is limited as the patient does not offer much information - Related Data Home Medications Medication Instructions Recorded Confirmed Carvedilol [Coreg] 3.125 mg PO AC-BID 12/23/18 12/23/18 Ipratropium-Albuterol Nebulize 3 ml INHALATION RT-QID PRN 12/23/18 12/23/18 [Duoneb 0.5 mg-3 mg/3 ml Soln] Previous Rx's Medication Instructions Recorded FLUoxetine HCL [PROzac] 20 mg PO DAILY #30 cap 07/10/16 cloNIDine HCL [Catapres] 0.1 mg PO BID #60 tab 07/10/16 risperiDONE 3 mg PO BID #60 tablet 07/10/16 Budesonide-Formot 160-4.5 Mcg 2 puff INHALATION RT-BID #1 puff 11/13/18 [Symbicort 160-4.5 Mcg Inhaler] Allergies Allergy/AdvReac Type Severity Reaction Status Date / Time Sulfa (Sulfonamide Allergy Rash/Hives Verified 12/23/18 16:46 Antibiotics) Review of Systems ROS Statement: Those systems with pertinent positive or pertinent negative responses have been documented in the HPI. ROS Other: All systems not noted in ROS Statement are negative. Past Medical History Past Medical History: Diabetes Mellitus, Hypertension History of Any Multi-Drug Resistant Organisms: None Reported Past Surgical History: Orthopedic Surgery Additional Past Surgical History / Comment(s): sinus sx Past Anesthesia/Blood Transfusion Reactions: No Reported Reaction Past Psychological History: Schizophrenia Smoking Status: Current every day smoker Past Alcohol Use History: None Reported Past Drug Use History: None Reported General Exam Limitations: altered mental status General appearance: alert, other (disheveled) Head exam: Present: atraumatic, normocephalic Eye exam: Present: PERRL, EOMI ENT exam: Present: normal oropharynx, mucous membranes moist, TM's normal bilaterally, other (purulent green drainage from bilateral nares) Neck exam: Present: normal inspection. Absent: tenderness, meningismus Respiratory exam: Present: rales, rhonchi, accessory muscle use Cardiovascular Exam: Present: regular rate, normal rhythm GI/Abdominal exam: Present: soft, rebound. Absent: distended, tenderness, guarding Extremities exam: Present: normal inspection, full ROM Back exam: Present: normal inspection, full ROM Neurological exam: Present: altered Psychiatric exam: Present: flat affect Skin exam: Present: warm, dry, rash (petechial rash b/l lower extremities, abd and chest) Course Vital Signs 12/23/18 12/23/18 12/23/18 17:00 18:04 18:17 Temperature 97.8 F Pulse Rate 93 89 90 Respiratory 22 Rate Blood Pressure 117/86 O2 Sat by Pulse 93 L Oximetry 12/23/18 12/23/18 12/23/18 20:19 22:12 23:00 Temperature 98.6 F 98.1 F Pulse Rate 93 97 94 Respiratory 20 16 18 Rate Blood Pressure 145/93 157/106 154/94 O2 Sat by Pulse 95 96 94 L Oximetry EKG Findings - EKG Comments: EKG Findings:: EKG demonstrates normal sinus rhythm with a ventricular rate of 94. [place] interval 140. QRS 74. QTC 430. No acute ST segment elevations or depressions concerning for ischemic changes Medical Decision Making - Medical Decision Making The patient is placed into room 2. A thorough history and physical exam is performed. The patient does have purulent green nasal drainage. He also has significant rhonchorous breath sounds and wheeze. He is placed on supplemental O2. Laboratory studies were conducted and the patient was sent for chest x-ray. Laboratory studies are markedly abnormal. White blood cell count is 29.9. Sodium is 114. Chloride 76. Urinalysis shows 1+ ketones. Influenza A and B are negative. Chest x-ray demonstrates a new right lower lobe pneumonia compared to last exam. Clearing of most of the right upper lobe pneumonia compared to old exam. I reevaluated the patient. I did obtain blood cultures. The patient was given a dose of Rocephin before source of infection was identified. As the patient has been recently hospitalized within the past 3 months I did provide him with a dose of Levaquin and Vanco in addition because of HCAP. Because of a sodium of 114 I did call discuss case with Dr. Garcia. She did recommend 3%. She requested I start the drip at 25 mL per hour for 3 hours. May be given through a peripheral IV. Lytes will be checked every 4 hours. I called and discussed the case with Dr. Owens who accepted admission for the patient. I also call discuss case with Dr. Syed who accepted admission. Bridging orders were placed. The patient was transported to the floor in critical, yet stable condition - Lab Data Result diagrams: 12/25/18 09:08 12/25/18 23:23 Lab Results 12/23/18 12/23/18 12/23/18 Range/Units 16:58 16:58 16:58 WBC (3.8-10.6) k/uL RBC (4.30-5.90) m/uL Hgb (13.0-17.5) gm/dL Hct (39.0-53.0) % MCV (80.0-100.0) fL MCH (25.0-35.0) pg MCHC (31.0-37.0) g/dL RDW (11.5-15.5) % Plt Count (150-450) k/uL Neutrophils % (Manual) % Band Neutrophils % % Lymphocytes % (Manual) % Monocytes % (Manual) % Metamyelocytes % % Myelocytes % % Neutrophils # (Manual) (1.3-7.7) k/uL Lymphocytes # (Manual) (1.0-4.8) k/uL Monocytes # (Manual) (0-1.0) k/uL Metamyelocytes # (Man) (0) k/uL Myelocytes # (Manual) (0) k/uL Nucleated RBCs (0-0) /100 WBC Manual Slide Review PT 10.3 (9.0-12.0) sec INR 1.0 (<1.2) APTT 27.7 (22.0-30.0) sec D-Dimer 0.51 (<0.60) mg/L FEU Sodium 114 L* (137-145) mmol/L Potassium 5.0 (3.5-5.1) mmol/L Chloride 76 L (98-107) mmol/L Carbon Dioxide 26 (22-30) mmol/L Anion Gap 12 mmol/L BUN 8 L (9-20) mg/dL Creatinine 0.70 (0.66-1.25) mg/dL Est GFR (CKD-EPI)AfAm >90 (>60 ml/min/1.73 sqM) Est GFR (CKD-EPI)NonAf >90 (>60 ml/min/1.73 sqM) Glucose 121 H (74-99) mg/dL Calcium 8.6 (8.4-10.2) mg/dL Magnesium 2.0 (1.6-2.3) mg/dL Total Bilirubin 0.9 (0.2-1.3) mg/dL AST 37 (17-59) U/L ALT 19 L (21-72) U/L Alkaline Phosphatase 147 H (38-126) U/L Creatine Kinase 116 (55-170) U/L Troponin I (0.000-0.034) ng/mL NT-Pro-B Natriuret Pep 213 pg/mL Total Protein 7.3 (6.3-8.2) g/dL Albumin 3.8 (3.5-5.0) g/dL Urine Color Urine Appearance (Clear) Urine pH (5.0-8.0) Ur Specific Chandler (1.001-1.035) Urine Protein (Negative) Urine Glucose (UA) (Negative) Urine Ketones (Negative) Urine Blood (Negative) Urine Nitrite (Negative) Urine Bilirubin (Negative) Urine Urobilinogen (<2.0) mg/dL Ur Leukocyte Esterase (Negative) Urine Osmolality (50-1400) mosm/kg Ur Random Creatinine mg/dL Ur Random Sodium mmol/L Ur Random Potassium mmol/L Ur Random Uric Acid mg/dL Influenza Type A RNA (Not Detectd) Influenza Type B (PCR) (Not Detectd) 12/23/18 12/23/18 12/23/18 Range/Units 16:58 16:58 19:00 WBC 29.9 H (3.8-10.6) k/uL RBC 4.60 (4.30-5.90) m/uL Hgb 14.1 (13.0-17.5) gm/dL Hct 40.3 (39.0-53.0) % MCV 87.4 D (80.0-100.0) fL MCH 30.7 (25.0-35.0) pg MCHC 35.1 (31.0-37.0) g/dL RDW 12.6 (11.5-15.5) % Plt Count 356 (150-450) k/uL Neutrophils % (Manual) 60 % Band Neutrophils % 1 % Lymphocytes % (Manual) 28 % Monocytes % (Manual) 10 % Metamyelocytes % 2 % Myelocytes % 1 % Neutrophils # (Manual) 18.20 H (1.3-7.7) k/uL Lymphocytes # (Manual) 8.37 H (1.0-4.8) k/uL Monocytes # (Manual) 2.99 H (0-1.0) k/uL Metamyelocytes # (Man) 0.60 H (0) k/uL Myelocytes # (Manual) 0.30 H (0) k/uL Nucleated RBCs 0 (0-0) /100 WBC Manual Slide Review Performed PT (9.0-12.0) sec INR (<1.2) APTT (22.0-30.0) sec D-Dimer (<0.60) mg/L FEU Sodium (137-145) mmol/L Potassium (3.5-5.1) mmol/L Chloride (98-107) mmol/L Carbon Dioxide (22-30) mmol/L Anion Gap mmol/L BUN (9-20) mg/dL Creatinine (0.66-1.25) mg/dL Est GFR (CKD-EPI)AfAm (>60 ml/min/1.73 sqM) Est GFR (CKD-EPI)NonAf (>60 ml/min/1.73 sqM) Glucose (74-99) mg/dL Calcium (8.4-10.2) mg/dL Magnesium (1.6-2.3) mg/dL Total Bilirubin (0.2-1.3) mg/dL AST (17-59) U/L ALT (21-72) U/L Alkaline Phosphatase (38-126) U/L Creatine Kinase (55-170) U/L Troponin I <0.012 (0.000-0.034) ng/mL NT-Pro-B Natriuret Pep pg/mL Total Protein (6.3-8.2) g/dL Albumin (3.5-5.0) g/dL Urine Color Urine Appearance (Clear) Urine pH (5.0-8.0) Ur Specific Chandler (1.001-1.035) Urine Protein (Negative) Urine Glucose (UA) (Negative) Urine Ketones (Negative) Urine Blood (Negative) Urine Nitrite (Negative) Urine Bilirubin (Negative) Urine Urobilinogen (<2.0) mg/dL Ur Leukocyte Esterase (Negative) Urine Osmolality (50-1400) mosm/kg Ur Random Creatinine mg/dL Ur Random Sodium mmol/L Ur Random Potassium mmol/L Ur Random Uric Acid mg/dL Influenza Type A RNA Not Detected (Not Detectd) Influenza Type B (PCR) Not Detected (Not Detectd) 12/23/18 12/23/18 12/23/18 Range/Units 21:19 21: 21: WBC (3.8-10.6) k/uL RBC (4.30-5.90) m/uL Hgb (13.0-17.5) gm/dL Hct (39.0-53.0) % MCV (80.0-100.0) fL MCH (25.0-35.0) pg MCHC (31.0-37.0) g/dL RDW (11.5-15.5) % Plt Count (150-450) k/uL Neutrophils % (Manual) % Band Neutrophils % % Lymphocytes % (Manual) % Monocytes % (Manual) % Metamyelocytes % % Myelocytes % % Neutrophils # (Manual) (1.3-7.7) k/uL Lymphocytes # (Manual) (1.0-4.8) k/uL Monocytes # (Manual) (0-1.0) k/uL Metamyelocytes # (Man) (0) k/uL Myelocytes # (Manual) (0) k/uL Nucleated RBCs (0-0) /100 WBC Manual Slide Review PT (9.0-12.0) sec INR (<1.2) APTT (22.0-30.0) sec D-Dimer (<0.60) mg/L FEU Sodium 115 L* (137-145) mmol/L Potassium (3.5-5.1) mmol/L Chloride (98-107) mmol/L Carbon Dioxide (22-30) mmol/L Anion Gap mmol/L BUN (9-20) mg/dL Creatinine (0.66-1.25) mg/dL Est GFR (CKD-EPI)AfAm (>60 ml/min/1.73 sqM) Est GFR (CKD-EPI)NonAf (>60 ml/min/1.73 sqM) Glucose (74-99) mg/dL Calcium (8.4-10.2) mg/dL Magnesium (1.6-2.3) mg/dL Total Bilirubin (0.2-1.3) mg/dL AST (17-59) U/L ALT (21-72) U/L Alkaline Phosphatase (38-126) U/L Creatine Kinase (55-170) U/L Troponin I (0.000-0.034) ng/mL NT-Pro-B Natriuret Pep pg/mL Total Protein (6.3-8.2) g/dL Albumin (3.5-5.0) g/dL Urine Color Yellow Urine Appearance Clear (Clear) Urine pH 6.5 (5.0-8.0) Ur Specific Chandler 1.018 (1.001-1.035) Urine Protein Trace H (Negative) Urine Glucose (UA) Negative (Negative) Urine Ketones 1+ H (Negative) Urine Blood Negative (Negative) Urine Nitrite Negative (Negative) Urine Bilirubin Negative (Negative) Urine Urobilinogen <2.0 (<2.0) mg/dL Ur Leukocyte Esterase Negative (Negative) Urine Osmolality 449 (50-1400) mosm/kg Ur Random Creatinine 174.2 mg/dL Ur Random Sodium mmol/L Ur Random Potassium mmol/L Ur Random Uric Acid mg/dL Influenza Type A RNA (Not Detectd) Influenza Type B (PCR) (Not Detectd) 12/23/18 12/23/18 12/23/18 Range/Units 21:19 21:19 21:19 WBC (3.8-10.6) k/uL RBC (4.30-5.90) m/uL Hgb (13.0-17.5) gm/dL Hct (39.0-53.0) % MCV (80.0-100.0) fL MCH (25.0-35.0) pg MCHC (31.0-37.0) g/dL RDW (11.5-15.5) % Plt Count (150-450) k/uL Neutrophils % (Manual) % Band Neutrophils % % Lymphocytes % (Manual) % Monocytes % (Manual) % Metamyelocytes % % Myelocytes % % Neutrophils # (Manual) (1.3-7.7) k/uL Lymphocytes # (Manual) (1.0-4.8) k/uL Monocytes # (Manual) (0-1.0) k/uL Metamyelocytes # (Man) (0) k/uL Myelocytes # (Manual) (0) k/uL Nucleated RBCs (0-0) /100 WBC Manual Slide Review PT (9.0-12.0) sec INR (<1.2) APTT (22.0-30.0) sec D-Dimer (<0.60) mg/L FEU Sodium (137-145) mmol/L Potassium (3.5-5.1) mmol/L Chloride (98-107) mmol/L Carbon Dioxide (22-30) mmol/L Anion Gap mmol/L BUN (9-20) mg/dL Creatinine (0.66-1.25) mg/dL Est GFR (CKD-EPI)AfAm (>60 ml/min/1.73 sqM) Est GFR (CKD-EPI)NonAf (>60 ml/min/1.73 sqM) Glucose (74-99) mg/dL Calcium (8.4-10.2) mg/dL Magnesium (1.6-2.3) mg/dL Total Bilirubin (0.2-1.3) mg/dL AST (17-59) U/L ALT (21-72) U/L Alkaline Phosphatase (38-126) U/L Creatine Kinase (55-170) U/L Troponin I (0.000-0.034) ng/mL NT-Pro-B Natriuret Pep pg/mL Total Protein (6.3-8.2) g/dL Albumin (3.5-5.0) g/dL Urine Color Urine Appearance (Clear) Urine pH (5.0-8.0) Ur Specific Chandler (1.001-1.035) Urine Protein (Negative) Urine Glucose (UA) (Negative) Urine Ketones (Negative) Urine Blood (Negative) Urine Nitrite (Negative) Urine Bilirubin (Negative) Urine Urobilinogen (<2.0) mg/dL Ur Leukocyte Esterase (Negative) Urine Osmolality (50-1400) mosm/kg Ur Random Creatinine mg/dL Ur Random Sodium 22 mmol/L Ur Random Potassium 20.0 mmol/L Ur Random Uric Acid 92.9 mg/dL Influenza Type A RNA (Not Detectd) Influenza Type B (PCR) (Not Detectd) Disposition Clinical Impression: Pneumonia, Hyponatremia Disposition: ADMITTED IP TO THIS [facility] Condition: Serious Is patient prescribed a controlled substance at d/c from ED?: No Decision to Admit Reason: Admit from EC Decision Date: 12/23/18 Decision Time: 21:30
[2018-12-23] MEDS ORDERED: IPRATROPIUM-ALBUTEROL 3 ML NEB INHALATION STA (17:31)
[2018-12-23] MEDS ORDERED: SODIUM CHLORIDE 0.9% 500 ML 500 ML IV STA (17:31)
[2018-12-23 18:19] LABS: HCT 40.3 % (39.0-53.0); HGB 14.1 gm/dL (13.0-17.5); MCH 30.7 pg (25.0-35.0); MCHC 35.1 g/dL (31.0-37.0); Mean Platelet Volume 6.3; Platelet Count 356 k/uL (150-450); RDW 12.6 % (11.5-15.5); WBC 29.9 k/uL (3.8-10.6)
[2018-12-23 18:21] LABS: D-Dimer 0.51 mg/L FEU (<0.60); Prothrombin Time 10.3 sec (9.0-12.0)
[2018-12-23 18:22] LABS: Partial Thromboplastin Time 27.7 sec (22.0-30.0)
[2018-12-23 18:30] LABS: MCV 87.4 fL (80.0-100.0)
[2018-12-23 18:40] LABS: ALT 19 U/L (21-72); AST 37 U/L (17-59); African American GFR (CKD) >90 (>60 ml/min/1.73 sqM); Albumin 3.8 g/dL (3.5-5.0); Alkaline Phosphatase 147 U/L (38-126); Anion Gap 12 mmol/L; Blood Urea Nitrogen 8 mg/dL (9-20); Calcium 8.6 mg/dL (8.4-10.2); Carbon Dioxide 26 mmol/L (22-30); Chloride 76 mmol/L (98-107); Creatine Kinase 116 U/L (55-170); Glucose 121 mg/dL (74-99); Total Bilirubin 0.9 mg/dL (0.2-1.3); Total Protein 7.3 g/dL (6.3-8.2)
[2018-12-23 18:45] LABS: Sodium 114 mmol/L (137-145)
[2018-12-23] MEDS ORDERED: SODIUM CHLORIDE 0.9% 1,000 ML IV STA (18:46)
[2018-12-23 18:56] LABS: Band Neutrophils % 1 %; Lymphocytes # (M) 8.37 k/uL (1.0-4.8); Metamyelocytes % 2 %; Monocytes # (M) 2.99 k/uL (0-1.0); Myelocytes % 1 %; Neutrophils % (M) 60 %; Nucleated Red Blood Cells 0 /100 WBC (0-0); Total Cells Counted 200
--- NOTE | 2018-12-23 18:56 | XR ---
EXAMINATION TYPE: XR chest 2V DATE OF EXAM: 12/23/2018 COMPARISON: 11/13/2018 HISTORY: Weakness. Short of breath TECHNIQUE: Frontal and lateral views of the chest are obtained. FINDINGS: There is some patchy airspace infiltrate right lower lobe. Left lung is relatively clear. There is no heart failure. Heart size is normal. There is no pleural effusion. There are chest leads. IMPRESSION: There is a new right lower lobe pneumonia compared to last exam. There is clearing of mo st of right upper lobe mild pneumonia compared to old exam. There is clearing of a mild infiltrate left lung base compared to old exam.
[2018-12-23] MEDS ORDERED: VANCOMYCIN 1,000 MG in SODIUM CHLORIDE 0.9% 250 ML IVPB STA (20:37)
[2018-12-23] MEDS ORDERED: LEVOFLOXACIN 750MG-D5W PMX 750 MG in DEXTROSE/WATER 1 150ML.BAG IVPB STA (20:37)
[2018-12-23] MEDS ORDERED: VANCOMYCIN 1,750 MG in SODIUM CHLORIDE 0.9% 500 ML 500 ML IVPB STA (20:43)
[2018-12-23] MEDS ORDERED: VANCOMYCIN IV PER PHARMACY 1 EACH MISC MISCELLANE PRN (20:43)
[2018-12-23] MEDS ORDERED: SODIUM CHLORIDE 3%(HYPERTONIC) 500 ML IV SCH (20:45)
[2018-12-23] MEDS ORDERED: NALOXONE 0.4 MG/ML 1 ML VIAL IV PRN (21:31)
[2018-12-23 21:44] LABS: Appearance,Urine Clear (Clear); Bilirubin,Urine Negative (Negative); Blood,Urine Negative (Negative); Color,Urine Yellow; Glucose,Urine (UA) Negative (Negative); Ketones,Urine 1+ (Negative); Leukocyte Esterase,Urine Negative (Negative); Nitrite,Urine Negative (Negative); PH, Urine 6.5 (5.0-8.0); Protein,Urine Trace (Negative); Specific Gravity,Urine 1.018 (1.001-1.035); Urobilinogen,Urine <2.0 mg/dL (<2.0)
[2018-12-23 22:15] LABS: Creatinine,Urine Random 174.2 mg/dL
[2018-12-23 22:52] LABS: Glucose,Whole Blood 107 mg/dL (75-99)
[2018-12-23] MEDS ORDERED: hydrALAZINE HCL 20 MG/ML 1 ML VIAL IVP PRN (23:14)
[2018-12-23] MEDS ORDERED: cloNIDine 0.2 MG/24HR PATCH TRANSDERM SCH ×2 (23:15→23:45)
[2018-12-24] MEDS: risperiDONE 1 MG TAB PO SCH ×3 (00:07→21:12)
[2018-12-24] MEDS: SODIUM CHLORIDE 0.9% 1,000 ML IV SCH ×4 (00:08→22:46)
[2018-12-24] MEDS: HEPARIN SODIUM,PORCINE 5,000 UNIT/ML 1 ML VIAL SQ SCH ×3 (00:18→16:47)
[2018-12-24] MEDS: hydrALAZINE HCL 20 MG/ML 1 ML VIAL IVP PRN (03:11)
[2018-12-24 05:26] LABS: ALT 27 U/L (21-72); AST 25 U/L (17-59); African American GFR (CKD) >90 (>60 ml/min/1.73 sqM); Alkaline Phosphatase 119 U/L (38-126); Anion Gap 8 mmol/L; Blood Urea Nitrogen 6 mg/dL (9-20); Calcium 7.5 mg/dL (8.4-10.2); Carbon Dioxide 25 mmol/L (22-30); Chloride 84 mmol/L (98-107); Glucose 94 mg/dL (74-99); HCT 36.3 % (39.0-53.0); HGB 12.4 gm/dL (13.0-17.5); MCH 30.4 pg (25.0-35.0); MCHC 34.3 g/dL (31.0-37.0); MCV 88.8 fL (80.0-100.0); Magnesium 1.8 mg/dL (1.6-2.3); Mean Platelet Volume 6.1; Phosphorus 2.8 mg/dL (2.5-4.5); Platelet Count 291 k/uL (150-450); Potassium 4.3 mmol/L (3.5-5.1); RBC 4.09 m/uL (4.30-5.90); RDW 12.7 % (11.5-15.5); Total Bilirubin 0.6 mg/dL (0.2-1.3); Total Protein 5.9 g/dL (6.3-8.2); WBC 22.3 k/uL (3.8-10.6)
[2018-12-24] MEDS: CARVEDILOL 3.125 MG TAB PO SCH ×2 (05:28→16:47)
[2018-12-24 05:32] LABS: Sodium 117 mmol/L (137-145)
[2018-12-24 05:42] LABS: Lymphocytes # (M) 6.69 k/uL (1.0-4.8); Monocytes # (M) 1.12 k/uL (0-1.0); Neutrophils % (M) 65 %; Nucleated Red Blood Cells 0 /100 WBC (0-0); Total Cells Counted 100
[2018-12-24 05:43] LABS: Hypochromasia (M) Present
[2018-12-24] MEDS ORDERED: cloNIDine HCL 0.2 MG TAB PO STA (07:02)
--- NOTE | 2018-12-24 07:07 | XR ---
EXAMINATION TYPE: XR chest 1V portable DATE OF EXAM: 12/24/2018 CLINICAL HISTORY: Difficulty breathing and weakness progress study. Recent pneumonia. TECHNIQUE: Single AP portable upright view of the chest is obtained. COMPARISON: Chest x-ray from one day earlier and older studies. FINDINGS: Overlying EKG leads are redemonstrated. There is chronic parenchymal changes without suspi cious new focal airspace opacity, pleural effusion, or pneumothorax seen bilaterally. Improved aerati on right lung base. Cardiac silhouette size is stable and upper limits of normal. Underlying scolioti c curvature is present. IMPRESSION: Chronic parenchymal changes with improved aeration right lung base. No new infiltrate is seen.
[2018-12-24] MEDS: SYMBICORT 160-4.5 MCG INHALER INHALATION SCH ×2 (07:10→20:03)
[2018-12-24] MEDS: IPRATROPIUM-ALBUTEROL 3 ML NEB INHALATION PRN ×4 (07:10→20:03)
[2018-12-24] MEDS: FLUoxetine HCL 20 MG CAP PO SCH (07:46)
[2018-12-24] MEDS: PANTOPRAZOLE 40 MG/10 ML VIAL IV SCH (07:46)
--- NOTE | 2018-12-24 07:59 | CONS ---
CONSULTATION PULMONARY/CRITICAL CARE CONSULTATION: DATE OF SERVICE: 12/24/2018 This is a 63-year-old male apparently with a history of hypertension, diabetes, and bipolar disorder, who apparently was brought into the emergency room for weakness. Patient is very poor historian. He was very disheveled. There was no family at the bedside. He apparently was diagnosed with pneumonia recently in October. The patient was found to apparently have increasing shortness of breath and chest congestion. His girlfriend called EMS. When they arrived at the home, he apparently was covered in bedbugs. He does have a petechial rash, which is secondary to bedbug bites. He was dehydrated. He looks pale. He apparently had not been eating because he did not have any money. The patient was recently in the hospital in October and I now remember him. Anyway, the patient is currently here in the ICU. The patient was found on x-ray to possibly have some right lower lobe infiltrate and also was found to be hyponatremic. He was on O2 at 3 L by nasal cannula and 3% saline at 25 mL an hour. Initial sodium was 114 and the most recent sodium was 117 with a sodium pending. He is also getting saline IV at 20 mL an hour. He does have a history of hypertension. His blood pressure has been elevated. I have asked the nurse to go ahead and give him 0.2 mg of clonidine. HOME MEDICATIONS: Apparently include Coreg 3.125 mg twice a day, DuoNeb q.i.d. and p.r.n., Prozac, Catapres, risperidone, and Symbicort. ALLERGIES: SULFA ANTIBIOTICS. MEDICAL HISTORY: Positive for diabetes and hypertension. He also has a history of pneumonia and probable COPD from chronic and ongoing tobacco use. SURGICAL HISTORY: Includes previous orthopedic procedures. He has also had sinus surgery. SOCIAL HISTORY: Positive for ongoing everyday tobacco use. He denies alcohol or illicit drug use. FAMILY HISTORY: Not known. He is really not able to elaborate much on his mother or father, their medical history. REVIEW OF SYSTEMS: CONSTITUTIONAL: Weakness. NEUROLOGIC: Negative. HEENT: Negative. CARDIOVASCULAR: Negative. PULMONARY: Chest congestion, cough without phlegm. GI: Negative. : Negative. RHEUMATOLOGIC: Negative. IMMUNOLOGIC: Negative. ENDOCRINOLOGIC: Negative. DERMATOLOGIC: Negative. Vital signs are reviewed. His temperature is 98, heart rate 81, respiratory rate 22, blood pressure 152/93 with a mean of 112, 3 L saturations is 96%. Appears in no acute distress. He is a bit slowed in his speech. HEENT: Examination is grossly unremarkable. Nasal O2 noted. NECK: Supple. Full range of motion. No adenopathy or thyromegaly. Neck veins are flat. CARDIOVASCULAR: Examination reveals regular rhythm and rate. Heart rate 81. S1, S2 normal. No distinct murmur noted. LUNGS: Reveal a few scattered rhonchi. Breath sounds are mostly clear. No wheezes or crackles. ABDOMEN: Soft, bowel sounds are noted. EXTREMITIES: Intact. No significant edema. SKIN: Reveals a petechial rash throughout his entire body from his bedbug bites. NEUROLOGIC: Examination is brief but essentially nonfocal. He does move all 4 extremities. His mental status has been improving. He is verbal. He knows where he is at. LABS: Reviewed. White count 22.3, hemoglobin 12.4, hematocrit 36.3, platelet count 391,000. PT, INR normal, PTT normal, D-dimer normal. Sodium up to 117, potassium 4.3, chloride 84, CO2 is 25, anion gap is 8. BUN and creatinine were 6 and 0.52. The rest of his comprehensive metabolic profile does not look too bad. His urine is essentially negative. There is trace protein and 1+ ketones. His urine osmolarity was 449. Influenza was negative. His initial chest x-ray shows a possible right lower lobe pneumonia. His subsequent chest x-ray reveals actually no infiltrate in the right lower lobe. I suspect what we are seeing initially was mostly atelectasis. Current medications are reviewed. He is on Symbicort, Coreg, clonidine patch, Prozac, subcu heparin, Apresoline p.r.n., duo nebs, Narcan, Protonix, Risperdal, his IV and vancomycin. ASSESSMENT: 1. Hypovolemic hyponatremia, secondary to dehydration and poor oral intake. 2. History of hypertension, poorly controlled. 3. Diabetes. 4. Bipolar disorder. 5. History of chronic obstructive pulmonary disease from previous tobacco use. 6. No clear-cut evidence of pneumonia at this time. 7. Medical noncompliance. 8. Recent episode of pneumonia in October 2018. 9. A bedbug infestation. PLAN: The patient's antibiotics can be altered. We will put him on Levaquin p.o. He does not need IV antibiotics at this time. We will make sure that he is on appropriate medications for COPD. I do not believe he is having a COPD exacerbation. I did give clonidine 0.2 mg p.o. today. We will get her back on his normal blood pressure medications. As his sodium rises more normal levels, the patient could be transferred out of the ICU. We will make sure we get him a diet. Additional recommendations and suggestions are forthcoming. Prognosis is guarded. Will continue to follow. MMODL / IJN: [id number] /
[2018-12-24] MEDS ORDERED: cloNIDine HCL 0.1 MG TAB PO SCH (09:00)
[2018-12-24] MEDS ORDERED: VANCOMYCIN 1,750 MG in SODIUM CHLORIDE 0.9% 500 ML 500 ML IVPB SCH (09:00)
--- NOTE | 2018-12-24 13:56 | P.HPIM ---
History of Present Illness This is a pleasant 63 years old male with past medical history of hypertension, hyperlipidemia, diabetes mellitus, schizophrenia, cigarette smoker who presents because he was found by his family confused, and bad hygiene and covered in bedbugs. And a presentation patient was noticed to be confused however he is following commands, he can tell he was not eating and drinking. Coming to the hospital. He was recently treated for pneumonia however he failed to failure antibiotic. Also patient complaining of from dyspnea and worsening cough. On admission patient was noticed to be severely hyponatremic with sodium level was at 114, so he was admitted to the intensive care unit and treated with 3% saline under close monitoring and guidance by the crosscutter. Patient has chronic leukocytosis, currently 29.9 on admission, down to 22.3. Compartment in October histolytica BC was 22.3 as well. Hemoglobin 12.4 and platelet count 291. Creatinine is normal, liver enzymes elevated. Urinalysis infection. Chest x- ray: No infiltrate. Although the previous chest x-ray from the same date was suspicious for right lower lobe infiltrate. EKG showing normal sinus rhythm at [address]-T changes. On admission. Since 1 dose of Levaquin and 1 dose of ceftriaxone 1 dose of vancomycin and several boluses of normal saline, and currently On oral vancomycin Past Medical History Past Medical History: Diabetes Mellitus, Hypertension History of Any Multi-Drug Resistant Organisms: None Reported Past Surgical History: Orthopedic Surgery Additional Past Surgical History / Comment(s): sinus sx Past Anesthesia/Blood Transfusion Reactions: No Reported Reaction Past Psychological History: Schizophrenia Smoking Status: Current every day smoker Past Alcohol Use History: None Reported Past Drug Use History: None Reported Medications and Allergies Home Medications Medication Instructions Recorded Confirmed Type FLUoxetine HCL [PROzac] 20 mg PO DAILY #30 cap 07/10/16 12/23/18 Rx cloNIDine HCL [Catapres] 0.1 mg PO BID #60 tab 07/10/16 12/23/18 Rx risperiDONE 3 mg PO BID #60 tablet 07/10/16 12/23/18 Rx Budesonide-Formot 160-4.5 Mcg 2 puff INHALATION RT-BID #1 puff 11/13/18 12/23/18 Rx [Symbicort 160-4.5 Mcg Inhaler] Carvedilol [Coreg] 3.125 mg PO AC-BID 12/23/18 12/23/18 History Ipratropium-Albuterol Nebulize 3 ml INHALATION RT-QID PRN 12/23/18 12/23/18 History [Duoneb 0.5 mg-3 mg/3 ml Soln] Allergies Allergy/AdvReac Type Severity Reaction Status Date / Time Sulfa (Sulfonamide Allergy Rash/Hives Verified 12/23/18 16:46 Antibiotics) Physical Exam Vitals: Vital Signs Temp Pulse Resp BP Pulse Ox 12/24/18 08:00 85 19 150/98 97 12/24/18 07:53 86 12/24/18 07:41 88 12/24/18 07:30 81 15 165/95 97 12/24/18 07:11 96 12/24/18 07:00 84 22 152/93 96 12/24/18 06:30 82 15 148/86 95 12/24/18 06:00 91 20 154/93 95 12/24/18 05:30 22 173/94 95 12/24/18 05:00 90 21 96 12/24/18 04:30 96 16 179/96 95 12/24/18 04:00 98 F 101 H 20 156/102 96 12/24/18 03:30 95 18 164/99 92 L 12/24/18 03:00 94 21 168/108 95 12/24/18 02:30 89 24 164/107 95 12/24/18 02:00 84 17 162/97 95 12/24/18 01:30 96 15 146/102 94 L 12/24/18 01:00 87 20 144/103 96 12/24/18 00:30 89 18 169/102 12/24/18 00:00 97.8 F 93 15 145/101 96 12/23/18 23:30 96 24 152/99 97 12/23/18 23:00 94 18 154/94 94 L 12/23/18 22:12 98.1 F 97 16 157/106 96 12/23/18 20:19 98.6 F 93 20 145/93 95 12/23/18 18:17 90 12/23/18 18:04 89 12/23/18 17:00 97.8 F 93 22 117/86 93 L Intake and Output 12/23/18 12/24/18 12/24/18 22:59 06:59 14:59 Intake Total 875 45 Output Total 1300 635 250 Balance -1300 240 -205 Intake: IV 875 45 Levofloxacin 750Mg-D5w 150 Pmx 750 mg In Dextrose/ Water 1 150ml.bag @ 100 mls/hr IVPB ONCE STA Rx#: [id number] Sodium Chloride 0.9% 1, 20 000 ml @ 100 mls/hr IV . Q10H [facility] Rx#:[id number] Sodium Chloride 3%( 225 25 Hypertonic) 500 ml @ 25 mls/hr IV .Q20H [facility] Rx#: [id number] Vancomycin 1,750 mg In 500 Sodium Chloride 0.9% 500 ml 500 ml @ 167 mls/hr IVPB ONCE STA Rx#: [id number] Output: Urine 1300 635 250 Uretheral (Hebert) 600 0 0 Other: Voiding Method Indwelling Catheter Weight 104.326 kg 106.4 kg -GENERAL: The patient is confused but answers questions and follow commands. not in any acute distress. Well developed, well nourished. -HEENT: Pupils are round and equally reacting to light. EOMI. No scleral icterus. No conjunctival pallor. Normocephalic, atraumatic. No pharyngeal erythema. No thyromegaly.dry Mucous membranes CARDIOVASCULAR: S1 and S2 present. No murmurs, rubs, or gallops. PULMONARY: Chest is clear to auscultation, no wheezing or crackles. ABDOMEN: Soft, nontender, nondistended, normoactive bowel sounds. No palpable organomegaly. MUSCULOSKELETAL: No joint swelling or deformity. EXTREMITIES: No cyanosis, clubbing, or pedal edema. NEUROLOGICAL: Gross neurological examination did not reveal any focal deficits. -SKIN: No lid but bites and petechiae all over his body, more in the extremities Results CBC & Chem 7: 12/24/18 04:31 12/24/18 12:31 Labs: Abnormal Lab Results - Last 24 Hours (Table) 12/23/18 12/23/18 12/23/18 Range/Units 16:58 16:58 21:19 WBC 29.9 H (3.8-10.6) k/uL RBC (4.30-5.90) m/uL Hgb (13.0-17.5) gm/dL Hct (39.0-53.0) % Neutrophils # (Manual) 18.20 H (1.3-7.7) k/uL Lymphocytes # (Manual) 8.37 H (1.0-4.8) k/uL Monocytes # (Manual) 2.99 H (0-1.0) k/uL Metamyelocytes # (Man) 0.60 H (0) k/uL Myelocytes # (Manual) 0.30 H (0) k/uL Sodium 114 L* 115 L* (137-145) mmol/L Chloride 76 L (98-107) mmol/L BUN 8 L (9-20) mg/dL Creatinine (0.66-1.25) mg/dL Glucose 121 H (74-99) mg/dL POC Glucose (mg/dL) (75-99) mg/dL Calcium (8.4-10.2) mg/dL ALT 19 L (21-72) U/L Alkaline Phosphatase 147 H (38-126) U/L Total Protein (6.3-8.2) g/dL Albumin (3.5-5.0) g/dL Urine Protein (Negative) Urine Ketones (Negative) 12/23/18 12/23/18 12/24/18 Range/Units 21:19 22:51 00:23 WBC (3.8-10.6) k/uL RBC (4.30-5.90) m/uL Hgb (13.0-17.5) gm/dL Hct (39.0-53.0) % Neutrophils # (Manual) (1.3-7.7) k/uL Lymphocytes # (Manual) (1.0-4.8) k/uL Monocytes # (Manual) (0-1.0) k/uL Metamyelocytes # (Man) (0) k/uL Myelocytes # (Manual) (0) k/uL Sodium 116 L* (137-145) mmol/L Chloride (98-107) mmol/L BUN (9-20) mg/dL Creatinine (0.66-1.25) mg/dL Glucose (74-99) mg/dL POC Glucose (mg/dL) 107 H (75-99) mg/dL Calcium (8.4-10.2) mg/dL ALT (21-72) U/L Alkaline Phosphatase (38-126) U/L Total Protein (6.3-8.2) g/dL Albumin (3.5-5.0) g/dL Urine Protein Trace H (Negative) Urine Ketones 1+ H (Negative) 12/24/18 12/24/18 12/24/18 Range/Units 04:31 04:31 08:25 WBC 22.3 H (3.8-10.6) k/uL RBC 4.09 L (4.30-5.90) m/uL Hgb 12.4 L (13.0-17.5) gm/dL Hct 36.3 L (39.0-53.0) % Neutrophils # (Manual) 14.50 H (1.3-7.7) k/uL Lymphocytes # (Manual) 6.69 H (1.0-4.8) k/uL Monocytes # (Manual) 1.12 H (0-1.0) k/uL Metamyelocytes # (Man) (0) k/uL Myelocytes # (Manual) (0) k/uL Sodium 117 L* 118 L* (137-145) mmol/L Chloride 84 L (98-107) mmol/L BUN 6 L (9-20) mg/dL Creatinine 0.52 L (0.66-1.25) mg/dL Glucose (74-99) mg/dL POC Glucose (mg/dL) (75-99) mg/dL Calcium 7.5 L (8.4-10.2) mg/dL ALT (21-72) U/L Alkaline Phosphatase (38-126) U/L Total Protein 5.9 L (6.3-8.2) g/dL Albumin 3.0 L (3.5-5.0) g/dL Urine Protein (Negative) Urine Ketones (Negative) Thrombosis Risk Factor Assmnt - Choose All That Apply Each Factor Represents 1 point: Obesity (BMI >25), Serious lung disease incl. pneumonia (< 1month) Each Risk Factor Represents 2 Points: Age 61-74 years Thrombosis Risk Factor Assessment Total Risk Factor Score: 4 Thrombosis Risk Factor Assessment Level: Moderate Risk Assessment and Plan Assessment: Hypovolemic hyponatremia Severe dehydration Low suspicion for pneumonia History of schizophrenia Nicotine dependence Hypertension Diabetes mellitus Hyperlipidemia Plan: This is a pleasant 63 years old male who presents with metabolic encephalopathy secondary to hyponatremia, continue with replacement therapy with saline solutions. Follow-up recommendation of from nephrology and pulmonary/critical care team.Labs and medication were reviewed.. Continue same treatment. Continue with symptomatic treatment. Resume home medication. Monitor lytes and vitals. DVT and GI prophylaxis. Further recommendations of the clinical course of the patient DVT prophylaxis: Subcutaneous heparin GI Prophylaxis: Pepcid PT/OT: Pending Prognosis is guarded
[2018-12-24 17:20] LABS: Glucose,Whole Blood 111 mg/dL (75-99)
--- NOTE | 2018-12-24 19:57 | CONS ---
CONSULTATION REASON FOR CONSULT: Hyponatremia. HISTORY OF PRESENT ILLNESS: Patient is a 63-year-old male who was admitted to the hospital, as he was found confused by his family. There were multiple bedbugs. Patient was very ill kempt. He does not remember exactly what happened. He was found to have a serum sodium of 114. Patient was started on 3% saline, given his mental status changes. His sodium has slowly come up to 119. Urine osmolality was 449. Random urine sodium was 22. Blood pressure was not low; in fact, it is on the higher side. No complaints of nausea, vomiting or diarrhea prior to admission. PAST MEDICAL HISTORY: Past medical history is significant for: 1. Schizophrenia. 2. Hyperlipidemia. 3. Hypertension. 4. Type 2 diabetes. 5. Osteoarthritis. SOCIAL HISTORY: Positive for smoking. No history of drug abuse or alcohol abuse. MEDICATIONS: Medications prior to admission included: 1. Prozac. 2. Clonidine. 3. Coreg. 4. Risperidone. ALLERGIES: SULFA, which causes rash and hives. REVIEW OF SYSTEMS: As per HPI. Other systems negative. PHYSICAL EXAMINATION: Patient is comfortable, awake. He was seen this morning. He is not in any acute distress. Mentation has improved significantly. Blood pressure this morning was 152/93, heart rate of 80 per minute. He is afebrile. EXAMINATION OF THE HEART: S1 and S2. EXAMINATION OF LUNGS: Decreased breath sounds at bases. ABDOMEN: Soft, non-tender. Examination of lower extremities shows no significant edema. Patient has a rash all over his today with areas of maculopapular rash and many areas of scratching with scratch ta. Labs from this morning showed sodium of 118 mEq/L. Urine sodium was 22, urine osmolality 449, potassium 4.3, serum creatinine 0.52, hemoglobin 12.4 g/dL. Chest x-ray showed chronic parenchymal changes with improved aeration, right lung base. ASSESSMENT: 1. Hyponatremia; appears to be euvolemic. There is consideration for SIADH. Patient is maintained on 3% saline, given his mental status changes, which have improved with improvement in serum sodium level. I will continue with the 3% saline for now, and once his sodium is above 120, we will discontinue that. Maintain patient on some degree of fluid restriction and increase his oral intake, particularly protein. Check TSH level if not done yet. Doubt adrenal insufficiency, given the hypertension. 2. Hypertension. Resume clonidine, as discontinuation can cause rebound hypertension. Add IV hydralazine, as patient was not able to take p.o. medicines last night. Resume Coreg that patient was taking at home as well. Once the 3% saline is discontinued, his blood pressure should improve further. 3. Schizophrenia. 4. Infestation with bedbugs, status post decontamination. PLAN: Continue 3% saline for now. Maintain patient on fluid restriction. Check TSH level. MMODL / IJN: [id number] /
[2018-12-24 20:52] LABS: Glucose,Whole Blood 113 mg/dL (75-99)
[2018-12-24] MEDS: FAMOTIDINE 20 MG/2 ML VIAL IV SCH (21:12)
[2018-12-24] MEDS: LEVOFLOXACIN 500 MG TAB PO SCH (21:12)
[2018-12-25] MEDS: HEPARIN SODIUM,PORCINE 5,000 UNIT/ML 1 ML VIAL SQ SCH ×4 (00:44→23:07)
[2018-12-25 05:33] LABS: African American GFR (CKD) >90 (>60 ml/min/1.73 sqM); Anion Gap 7 mmol/L; Blood Urea Nitrogen 5 mg/dL (9-20); Calcium 7.6 mg/dL (8.4-10.2); Carbon Dioxide 27 mmol/L (22-30); Chloride 83 mmol/L (98-107); Glucose 108 mg/dL (74-99); Potassium 4.1 mmol/L (3.5-5.1)
[2018-12-25 05:39] LABS: Sodium 117 mmol/L (137-145)
--- NOTE | 2018-12-25 06:05 | XR ---
EXAMINATION TYPE: XR chest 1V portable DATE OF EXAM: 12/25/2018 HISTORY: Shortness of breath. REFERENCE: Previous study dated 12/24/2018. FINDINGS: Heart size upper limits of normal. There are has developed bibasilar infiltrates. There are small, bilateral effusions. There is vascular congestion and subtle interstitial change. IMPRESSION: 1. FINDINGS CONSISTENT WITH CONGESTIVE HEART FAILURE. 2. CONFLUENT BIBASILAR AIRSPACE DISEASE REPRESENTING CONFLUENT EDEMA OR SUPERIMPOSED PNEUMONIA.
[2018-12-25] MEDS: CARVEDILOL 3.125 MG TAB PO SCH ×2 (06:09→16:48)
[2018-12-25] MEDS: SODIUM CHLORIDE 3%(HYPERTONIC) 500 ML IV SCH (06:09)
[2018-12-25 06:50] LABS: Glucose,Whole Blood 111 mg/dL (75-99)
[2018-12-25] MEDS: IPRATROPIUM-ALBUTEROL 3 ML NEB INHALATION PRN ×3 (07:49→20:02)
[2018-12-25] MEDS: SYMBICORT 160-4.5 MCG INHALER INHALATION SCH ×2 (07:49→20:02)
[2018-12-25] MEDS: FAMOTIDINE 20 MG/2 ML VIAL IV SCH (09:20)
[2018-12-25] MEDS: PANTOPRAZOLE 40 MG/10 ML VIAL IV SCH (09:20)
[2018-12-25] MEDS: risperiDONE 1 MG TAB PO SCH ×2 (09:20→21:40)
[2018-12-25] MEDS: FLUoxetine HCL 20 MG CAP PO SCH (09:20)
[2018-12-25 09:28] LABS: Basophils # (A) 0.2 k/uL (0-0.2); Basophils % (A) 1 %; Eosinophils % (A) 0 %; HCT 34.5 % (39.0-53.0); HGB 11.6 gm/dL (13.0-17.5); Lymphocytes # (A) 4.7 k/uL (1.0-4.8); Lymphocytes % (A) 23 %; MCH 30.3 pg (25.0-35.0); MCHC 33.7 g/dL (31.0-37.0); Mean Platelet Volume 5.8; Monocytes # (A) 0.8 k/uL (0-1.0); Monocytes % (A) 4 %; Neutrophils # (A) 13.9 k/uL (1.3-7.7); Neutrophils % (A) 68 %; Platelet Count 271 k/uL (150-450); RBC 3.83 m/uL (4.30-5.90); RDW 12.6 % (11.5-15.5); WBC 20.4 k/uL (3.8-10.6)
--- NOTE | 2018-12-25 09:31 | P.PN ---
Subjective Progress Note Date: 12/25/18 Principal diagnosis: Hypovolemic hyponatremia secondary to dehydration and poor oral intake The patient is seen today 12/25/2018 in follow-up in the intensive care unit. He is more awake and alert today as compared to yesterday. Tolerating a diet. Currently resting comfortably in bed. No worsening shortness of breath, cough or congestion. Maintaining O2 saturations in the 90s on 2 L/m per nasal cannula. He's been afebrile. Hemodynamically stable. He currently has 3% normal saline running at 25 ML's per hour. Current sodium 117. Potassium 4.1. Chloride 83. Bicarb 27. Creatinine 0.52. Blood culture revealing no growth to date. He is continued on DuoNeb inhalations, Symbicort, antibiotics in the form of Levaquin. Chest x-ray shows evidence of bibasilar infiltrates and small bilateral pleural effusions with some vascular congestion. Objective - Vital Signs Vital signs: Vital Signs Temp 98.7 F 12/25/18 08:00 Pulse 71 12/25/18 09:00 Resp 16 12/25/18 09:00 BP 101/64 12/25/18 09:00 Pulse Ox 92 L 12/25/18 09:00 Intake & Output 12/24/18 12/25/18 12/25/18 18:59 06:59 18:59 Intake Total 450 400 200 Output Total 1005 1200 150 Balance -555 -800 50 Weight 106.5 kg Intake: IV 450 0 Sodium Chloride 0.9% 1, 200 0 000 ml @ 100 mls/hr IV . Q10H [facility] Rx#:[id number] Sodium Chloride 3%( 250 Hypertonic) 500 ml @ 25 mls/hr IV .Q20H [facility] Rx#: [id number] Intake, IV Titration 400 100 Amount Sodium Chloride 0.9% 1, 400 50 000 ml @ 50 mls/hr IV . Q20H [facility] Rx#:[id number] Sodium Chloride 3%( 50 Hypertonic) 500 ml @ 25 mls/hr IV .Q20H [facility] Rx#: [id number] Oral 100 Output: Urine 1005 1200 150 Uretheral (Hebert) 0 Other: Voiding Method Indwelling Catheter Indwelling Catheter - Exam GENERAL EXAM: Alert, pleasant 63-year-old gentleman, comfortable in no apparent distress. On 2 L nasal cannula. HEAD: Normocephalic. EYES: Normal reaction of pupils, equal size. NOSE: Clear with pink turbinates. THROAT: No erythema or exudates. NECK: No masses, no JVD. CHEST: No chest wall deformity. LUNGS: Equal air entry with crackles in the bilateral posterior bases. CVS: S1 and S2 normal with no audible murmur, regular rhythm. ABDOMEN: No hepatosplenomegaly, normal bowel sounds, no guarding or rigidity. SPINE: No scoliosis or deformity SKIN: Evidence of multiple insect bites CENTRAL NERVOUS SYSTEM: No focal deficits, tone is normal in all 4 extremities. EXTREMITIES: There is no peripheral edema. No clubbing, no cyanosis. Peripheral pulses are intact. - Labs CBC & Chem 7: 12/24/18 04:31 12/25/18 05:15 Labs: Abnormal Lab Results - Last 24 Hours (Table) 12/24/18 12/24/18 12/24/18 Range/Units 12:31 15:56 17:07 Sodium 119 L* 119 L* (137-145) mmol/L Chloride (98-107) mmol/L BUN (9-20) mg/dL Creatinine (0.66-1.25) mg/dL Glucose (74-99) mg/dL POC Glucose (mg/dL) 111 H (75-99) mg/dL Calcium (8.4-10.2) mg/dL 12/24/18 12/24/18 12/25/18 Range/Units 20:28 20:41 01:38 Sodium 118 L* 118 L* (137-145) mmol/L Chloride (98-107) mmol/L BUN (9-20) mg/dL Creatinine (0.66-1.25) mg/dL Glucose (74-99) mg/dL POC Glucose (mg/dL) 113 H (75-99) mg/dL Calcium (8.4-10.2) mg/dL 12/25/18 12/25/18 Range/Units 05:15 06:38 Sodium 117 L* (137-145) mmol/L Chloride 83 L (98-107) mmol/L BUN 5 L (9-20) mg/dL Creatinine 0.52 L (0.66-1.25) mg/dL Glucose 108 H (74-99) mg/dL POC Glucose (mg/dL) 111 H (75-99) mg/dL Calcium 7.6 L (8.4-10.2) mg/dL Microbiology - Last 24 Hours (Table) 12/23/18 18:28 Blood Culture - Preliminary Blood No Growth after 24 hours Assessment and Plan Assessment: Impression: #1 Hypovolemic hyponatremia secondary to dehydration and poor oral intake. #2 History of poorly controlled hypertension. #3 Diabetes mellitus. #4 Bipolar disorder. #5 History of chronic obstructive pulmonary disease. #6 Previous tobacco dependence. #7 History of medication noncompliance. #8 Bed bug infestation. Plan: The patient was seen and evaluated by Dr. Syed. Chest x-ray and labs reviewed. He is currently on 3% normal saline at 25 ML's per hour. He is also on bronchodilators, Symbicort and antibiotics in the form of Levaquin. We will continue to monitor him closely. Follow-up sodium levels. Increase his activity as tolerated. We'll continue to follow and make further recommendations based on her clinical status. I, the cosigning physician, performed a history & physical examination of the patient. Lungs sounds with crackles in the steering bases. Maintaining good O2 saturations in the 90s on 2 L/m per nasal. I discussed the assessment and plan of care with my nurse practitioner, Sandra Gagnon. I attest to the above note as dictated by her.
--- NOTE | 2018-12-25 09:51 | P.PN ---
Subjective Patient is seen in follow-up for hyponatremia. Sodium level dropped down to 117 this morning. He was on normal saline overnight. Currently on 3% saline. Remains quite lethargic. Oral intake is gradually improving. He is nonoliguric. Vital signs are stable. General: The patient appeared well nourished and normally developed. HEENT: Head exam is unremarkable. Neck is without jugular venous distension. LUNGS: Lungs are clear to auscultation and percussion. Breath sounds decreased. HEART: Rate and Rhythm are regular. First and second heart sounds normal. No murmurs, rubs or gallops. ABDOMEN: Abdominal exam reveals normal bowel sounds. Non-tender and non- distended. No evidence of peritonitis. EXTREMITITES: No clubbing, cyanosis, or edema. Objective - Vital Signs Vital signs: Vital Signs Temp 98.7 F 12/25/18 08:00 Pulse 71 12/25/18 09:00 Resp 16 12/25/18 09:00 BP 101/64 12/25/18 09:00 Pulse Ox 92 L 12/25/18 09:00 Intake & Output 12/24/18 12/25/18 12/25/18 18:59 06:59 18:59 Intake Total 450 400 200 Output Total 1005 1200 150 Balance -555 -800 50 Weight 106.5 kg Intake: IV 450 0 Sodium Chloride 0.9% 1, 200 0 000 ml @ 100 mls/hr IV . Q10H [facility] Rx#:[id number] Sodium Chloride 3%( 250 Hypertonic) 500 ml @ 25 mls/hr IV .Q20H [facility] Rx#: [id number] Intake, IV Titration 400 100 Amount Sodium Chloride 0.9% 1, 400 50 000 ml @ 50 mls/hr IV . Q20H [facility] Rx#:[id number] Sodium Chloride 3%( 50 Hypertonic) 500 ml @ 25 mls/hr IV .Q20H [facility] Rx#: [id number] Oral 100 Output: Urine 1005 1200 150 Uretheral (Hebert) 0 Other: Voiding Method Indwelling Catheter Indwelling Catheter - Labs CBC & Chem 7: 12/25/18 09:08 12/25/18 05:15 Labs: Abnormal Lab Results - Last 24 Hours (Table) 12/24/18 12/24/18 12/24/18 Range/Units 12:31 15:56 17:07 WBC (3.8-10.6) k/uL RBC (4.30-5.90) m/uL Hgb (13.0-17.5) gm/dL Hct (39.0-53.0) % Neutrophils # (1.3-7.7) k/uL Sodium 119 L* 119 L* (137-145) mmol/L Chloride (98-107) mmol/L BUN (9-20) mg/dL Creatinine (0.66-1.25) mg/dL Glucose (74-99) mg/dL POC Glucose (mg/dL) 111 H (75-99) mg/dL Calcium (8.4-10.2) mg/dL 12/24/18 12/24/18 12/25/18 Range/Units 20:28 20:41 01:38 WBC (3.8-10.6) k/uL RBC (4.30-5.90) m/uL Hgb (13.0-17.5) gm/dL Hct (39.0-53.0) % Neutrophils # (1.3-7.7) k/uL Sodium 118 L* 118 L* (137-145) mmol/L Chloride (98-107) mmol/L BUN (9-20) mg/dL Creatinine (0.66-1.25) mg/dL Glucose (74-99) mg/dL POC Glucose (mg/dL) 113 H (75-99) mg/dL Calcium (8.4-10.2) mg/dL 12/25/18 12/25/18 12/25/18 Range/Units 05:15 06:38 09:08 WBC 20.4 H (3.8-10.6) k/uL RBC 3.83 L (4.30-5.90) m/uL Hgb 11.6 L (13.0-17.5) gm/dL Hct 34.5 L (39.0-53.0) % Neutrophils # 13.9 H (1.3-7.7) k/uL Sodium 117 L* (137-145) mmol/L Chloride 83 L (98-107) mmol/L BUN 5 L (9-20) mg/dL Creatinine 0.52 L (0.66-1.25) mg/dL Glucose 108 H (74-99) mg/dL POC Glucose (mg/dL) 111 H (75-99) mg/dL Calcium 7.6 L (8.4-10.2) mg/dL Microbiology - Last 24 Hours (Table) 12/23/18 18:28 Blood Culture - Preliminary Blood No Growth after 24 hours Assessment and Plan Plan: Assessment: 1. Hyponatremia. Appears euvolemic. Sodium level dropped with normal saline which is not suggestive of hypovolemia. Sodium level 117 this morning. Currently on 3% saline. Urine sodium 22 and urine osmolality 449 on admission. Patient was on Prozac which can induce SIADH. TSH normal. 2. Benign hypertension. Controlled. 3. Pneumonia maintained on antibiotics. 4. History of schizophrenia. Plan: Maintain 3% at 25 mL an hour. Repeat sodium from 9 AM pending. 1200 mL fluid restriction. Add ensure 3 times daily with meals. Check uric acid level. Monitor sodium level closely.
[2018-12-25 11:48] LABS: Glucose,Whole Blood 122 mg/dL (75-99)
[2018-12-25] MEDS: hydrALAZINE HCL 20 MG/ML 1 ML VIAL IVP PRN (14:09)
--- NOTE | 2018-12-25 14:45 | P.PN ---
Subjective This is a pleasant 63 years old male with past medical history of hypertension, hyperlipidemia, diabetes mellitus, schizophrenia, cigarette smoker who presents because he was found by his family confused, and bad hygiene and covered in bedbugs. And a presentation patient was noticed to be confused however he is following commands, he can tell he was not eating and drinking. Coming to the hospital. He was recently treated for pneumonia however he failed to failure antibiotic. Also patient complaining of from dyspnea and worsening cough. On admission patient was noticed to be severely hyponatremic with sodium level was at 114, so he was admitted to the intensive care unit and treated with 3% saline under close monitoring and guidance by the health center associate. Patient has chronic leukocytosis, currently 29.9 on admission, down to 22.3. Compartment in October histolytica BC was 22.3 as well. Hemoglobin 12.4 and platelet count 291. Cre atinine is normal, liver enzymes elevated. Urinalysis infection. Chest x-ray: No infiltrate. Although the previous chest x-ray from the same date was suspicious for right lower lobe infiltrate. EKG showing normal sinus rhythm at [address]-T changes. On admission. Since 1 dose of Levaquin and 1 dose of ceftriaxone 1 dose of vancomycin and several boluses of normal saline, and currently On oral vancomycin 12/25/2018 patient remains in the ICU, is awake and alert. He denies chest pain or dyspnea. He has somewhat calcified but without limp. His dizziness has improved. And he is moving more easily. patient denies abdominal pain or nausea vomiting.. Sodium went up to 120 today.chest x-ray showing CHF with possible bibasilar confluent edema versus pneumonia. Patient will continue with the same therapy with 3% normal saline and bronchodilators with oral Levaquin, also fluid restriction is added. he has no itching and a rash which is improving as well Review of systems CONSTITUTIONAL: No fever, no malaise, no fatigue. HEENT: No recent visual problems or hearing problems. Denied any sore throat. CARDIOVASCULAR: No orthopnea, PND, no palpitations, no syncope. PULMONARY: No shortness of breath,no hemoptysis. GASTROINTESTINAL: No diarrhea, no nausea, no vomiting, no abdominal pain. Normoactive bowel sounds. NEUROLOGICAL: No headaches, no weakness, no numbness. HEMATOLOGICAL: Denies any bleeding GENITOURINARY: Denies any burning micturition, frequency, or urgency. MUSCULOSKELETAL/RHEUMATOLOGICAL: Denies any joint pain, swelling, or any muscle pain. ENDOCRINE: Denies any polyuria or polydipsia. Active Medications Generic Name Dose Route Start Last Admin Trade Name Freq PRN Reason Stop Dose Admin Albuterol/Ipratropium 3 ml 12/23/18 21:33 12/25/18 07:49 Duoneb 0.5 Mg-3 Mg/3 Ml Soln INHALATION 3 ml RT-QID PRN Administration Shortness Of Breath Budesonide/Formoterol Fumarate 2 puff 12/24/18 08:00 12/25/18 07:49 Symbicort 160-4.5 Mcg Inhaler INHALATION 2 puff RT-BID [facility] Administration Carvedilol 3.125 mg 12/24/18 07:30 12/25/18 06:09 Coreg PO 3.125 mg AC-BID EN[facility] Administration Clonidine HCl 1 patch 12/23/18 23:45 12/24/18 00:09 Catapres-Tts 0.2mg Patch TRANSDERM 1 patch Q7D [facility] Administration Fluoxetine HCl 20 mg 12/24/18 09:00 12/25/18 09:20 Prozac PO 20 mg DAILY EN[facility] Administration Heparin Sodium (Porcine) 5,000 unit 12/24/18 00:00 12/25/18 09:20 Heparin SQ 5,000 unit Q8HR [facility] Administration Hydralazine HCl 10 mg 12/23/18 23:44 12/25/18 14:09 Apresoline IVP 10 mg Q4HR PRN Administration Blood Pressure - High Sodium Chloride 1,000 mls @ 50 mls/hr 12/24/18 22:45 12/24/18 22:46 Saline 0.9% IV 50 mls/hr .Q20H [facility] Administration Sodium Chloride (Hypertonic) 500 mls @ 25 mls/hr 12/25/18 06:00 12/25/18 06:09 Saline 3% (Hypertonic) IV 12/26/18 05:52 25 mls/hr .Q20H [facility] Administration Protocol Levofloxacin 500 mg 12/24/18 21:00 12/24/18 21:12 Levaquin PO 500 mg Q24H [facility] Administration Naloxone HCl 0.2 mg 12/23/18 21:31 Narcan IV Q2M PRN Opioid Reversal Pantoprazole Sodium 40 mg 12/26/18 09:00 Protonix PO DAILY EN[facility] Risperidone 3 mg 12/23/18 21:45 12/25/18 09:20 Risperdal PO 3 mg BID ENID Administration Objective - Vital Signs Vital signs: Vital Signs Temp 98.2 F 12/25/18 12:00 Pulse 77 12/25/18 14:00 Resp 14 12/25/18 14:00 BP 165/99 12/25/18 14:00 Pulse Ox 92 L 12/25/18 14:00 Intake & Output 12/24/18 12/25/18 12/25/18 18:59 06:59 18:59 Intake Total 450 400 445 Output Total 1005 1200 535 Balance -555 -800 -90 Weight 106.5 kg Intake: IV 450 0 Sodium Chloride 0.9% 1, 200 0 000 ml @ 100 mls/hr IV . Q10H [facility] Rx#:[id number] Sodium Chloride 3%( 250 Hypertonic) 500 ml @ 25 mls/hr IV .Q20H [facility] Rx#: [id number] Intake, IV Titration 400 225 Amount Sodium Chloride 0.9% 1, 400 50 000 ml @ 50 mls/hr IV . Q20H [facility] Rx#:[id number] Sodium Chloride 3%( 175 Hypertonic) 500 ml @ 25 mls/hr IV .Q20H [facility] Rx#: [id number] Oral 220 Output: Urine 1005 1200 535 Uretheral (Hebert) 0 Other: Voiding Method Indwelling Catheter Indwelling Catheter Indwelling Catheter - Exam -GENERAL: The patient is confused but answers questions and follow commands. not in any acute distress. Well developed, well nourished. HEENT: Pupils are round and equally reacting to light. EOMI. No scleral icterus. No conjunctival pallor. Normocephalic, atraumatic. No pharyngeal erythema. No thyromegaly. CARDIOVASCULAR: S1 and S2 present. No murmurs, rubs, or gallops. PULMONARY: Chest is clear to auscultation, no wheezing or crackles. ABDOMEN: Soft, nontender, nondistended, normoactive bowel sounds. No palpable o rganomegaly. MUSCULOSKELETAL: No joint swelling or deformity. EXTREMITIES: No cyanosis, clubbing, or pedal edema. NEUROLOGICAL: Gross neurological examination did not reveal any focal deficits. -SKIN: No lid but bites and petechiae all over his body, more in the extremities, significantly improved and change in color from rectal think - Labs CBC & Chem 7: 12/25/18 09:08 12/25/18 12:18 Labs: Abnormal Lab Results - Last 24 Hours (Table) 12/24/18 12/24/18 12/24/18 Range/Units 15:56 17:07 20:28 WBC (3.8-10.6) k/uL RBC (4.30-5.90) m/uL Hgb (13.0-17.5) gm/dL Hct (39.0-53.0) % Neutrophils # (1.3-7.7) k/uL Sodium 119 L* 118 L* (137-145) mmol/L Chloride (98-107) mmol/L BUN (9-20) mg/dL Creatinine (0.66-1.25) mg/dL Glucose (74-99) mg/dL POC Glucose (mg/dL) 111 H (75-99) mg/dL Uric Acid (3.5-8.5) mg/dL Calcium (8.4-10.2) mg/dL 12/24/18 12/25/18 12/25/18 Range/Units 20:41 01:38 05:15 WBC (3.8-10.6) k/uL RBC (4.30-5.90) m/uL Hgb (13.0-17.5) gm/dL Hct (39.0-53.0) % Neutrophils # (1.3-7.7) k/uL Sodium 118 L* 117 L* (137-145) mmol/L Chloride 83 L (98-107) mmol/L BUN 5 L (9-20) mg/dL Creatinine 0.52 L (0.66-1.25) mg/dL Glucose 108 H (74-99) mg/dL POC Glucose (mg/dL) 113 H (75-99) mg/dL Uric Acid (3.5-8.5) mg/dL Calcium 7.6 L (8.4-10.2) mg/dL 12/25/18 12/25/18 12/25/18 Range/Units 06:38 09:08 09:08 WBC 20.4 H (3.8-10.6) k/uL RBC 3.83 L (4.30-5.90) m/uL Hgb 11.6 L (13.0-17.5) gm/dL Hct 34.5 L (39.0-53.0) % Neutrophils # 13.9 H (1.3-7.7) k/uL Sodium 119 L* (137-145) mmol/L Chloride (98-107) mmol/L BUN (9-20) mg/dL Creatinine (0.66-1.25) mg/dL Glucose (74-99) mg/dL POC Glucose (mg/dL) 111 H (75-99) mg/dL Uric Acid (3.5-8.5) mg/dL Calcium (8.4-10.2) mg/dL 12/25/18 12/25/18 12/25/18 Range/Units 09:08 11:36 12:18 WBC (3.8-10.6) k/uL RBC (4.30-5.90) m/uL Hgb (13.0-17.5) gm/dL Hct (39.0-53.0) % Neutrophils # (1.3-7.7) k/uL Sodium 120 L (137-145) mmol/L Chloride (98-107) mmol/L BUN (9-20) mg/dL Creatinine (0.66-1.25) mg/dL Glucose (74-99) mg/dL POC Glucose (mg/dL) 122 H (75-99) mg/dL Uric Acid 1.8 L (3.5-8.5) mg/dL Calcium (8.4-10.2) mg/dL Microbiology - Last 24 Hours (Table) 12/23/18 18:28 Blood Culture - Preliminary Blood No Growth after 24 hours Assessment and Plan Assessment: Hypovolemic hyponatremia Severe dehydration, improving bilateral basal airway disease suspicious for edema versus pneumonia History of schizophrenia Nicotine dependence Hypertension Diabetes mellitus Hyperlipidemia Plan: This is a pleasant 63 years old male who presents with metabolic encephalopathy secondary to hyponatremia, continue with replacement therapy with saline solutions. Follow-up recommendation of from nephrology and pulmonary/critical care team.Labs and medication were reviewed.. Continue same treatment. Continue with symptomatic treatment. Resume home medication. Monitor lytes and vitals. DVT and GI prophylaxis. Further recommendations of the clinical course of the patient DVT prophylaxis: Subcutaneous heparin GI Prophylaxis: Pepcid PT/OT: Pending Prognosis is guarded
[2018-12-25] MEDS ORDERED: FUROSEMIDE 10 MG/ML 2 ML VIAL IV STA (16:40)
[2018-12-25] MEDS: SODIUM CHLORIDE 0.9% 1,000 ML IV SCH (19:06)
[2018-12-25] MEDS: LEVOFLOXACIN 500 MG TAB PO SCH (21:40)
[2018-12-26 03:09] LABS: Basophils # (A) 0.2 k/uL (0-0.2); Basophils % (A) 1 %; Eosinophils % (A) 0 %; HCT 35.5 % (39.0-53.0); HGB 12.2 gm/dL (13.0-17.5); Lymphocytes # (A) 5.4 k/uL (1.0-4.8); Lymphocytes % (A) 24 %; MCH 30.4 pg (25.0-35.0); MCHC 34.4 g/dL (31.0-37.0); MCV 88.3 fL (80.0-100.0); Monocytes # (A) 1.1 k/uL (0-1.0); Monocytes % (A) 5 %; Neutrophils % (A) 66 %; Platelet Count 250 k/uL (150-450); RBC 4.01 m/uL (4.30-5.90); RDW 12.6 % (11.5-15.5); WBC 22.7 k/uL (3.8-10.6)
[2018-12-26 03:24] LABS: African American GFR (CKD) >90 (>60 ml/min/1.73 sqM); Anion Gap 8 mmol/L; Blood Urea Nitrogen 7 mg/dL (9-20); Carbon Dioxide 28 mmol/L (22-30); Chloride 84 mmol/L (98-107); Glucose 98 mg/dL (74-99); Potassium 4.3 mmol/L (3.5-5.1); Sodium 120 mmol/L (137-145)
[2018-12-26] MEDS ORDERED: SODIUM CHLORIDE 3%(HYPERTONIC) 500 ML IV SCH (03:30)
[2018-12-26] MEDS: SODIUM CHLORIDE 3%(HYPERTONIC) 500 ML IV SCH (03:54)
--- NOTE | 2018-12-26 06:02 | XR ---
EXAMINATION TYPE: XR chest 1V portable DATE OF EXAM: 12/26/2018 HISTORY: ICU management. REFERENCE: Previous study dated 12/25/2018. FINDINGS: Heart size upper limits of normal. There is vascular congestion and mild pulmonary edema. T here is confluent opacity of the lung bases which may represent confluent edema or superimposed pneum onia. I suspect a small left effusion. IMPRESSION: NO SIGNIFICANT INTERVAL CHANGE IN THE APPEARANCE OF THE CHEST.
[2018-12-26] MEDS: CARVEDILOL 3.125 MG TAB PO SCH ×2 (06:33→16:33)
[2018-12-26] MEDS ORDERED: TOLVAPTAN 15 MG 1/2 TABLET PO ONE ×2 (07:38→13:00)
[2018-12-26] MEDS: SYMBICORT 160-4.5 MCG INHALER INHALATION SCH ×2 (07:40→19:20)
[2018-12-26] MEDS ORDERED: FUROSEMIDE 10 MG/ML 4 ML VIAL IV STA (07:48)
--- NOTE | 2018-12-26 08:08 | PN ---
PROGRESS NOTE DATE OF SERVICE: December 26, 2018 This is a 63-year-old male who was admitted with a diagnosis of hypovolemic hyponatremia. The patient is currently receiving 3% saline at 25 mL an hour. The patient is also receiving O2 between 2 to 3 L/minute. Chest x-ray today shows fluid overload. In addition, he has a history of poorly controlled hypertension, diabetes, bipolar disorder, COPD, previous history of tobacco dependence, recent admission for pneumonia, medication noncompliance and bedbug infestation. Currently, he is doing reasonably well. I believe his sodium this morning was 120. He has been on 3% saline on and off for the last day and a half or 2 days. Again chest x-ray does show fluid overload. I am going to go ahead and give him some Lasix today. The patient does admit to some mild cough and chest congestion. He is not coughing up any phlegm. Denies any chest pain or pressure. No fever or chills. No nausea, vomiting or diarrhea. No genitourinary complaints. PHYSICAL EXAMINATION: VITAL SIGNS: Current vital signs are reviewed. Temperature 98. Heart rate 99, respiratory rate 20, blood pressure 139/84 mean 102, 4 L saturation 94%. Appears in no acute distress. HEENT examination is grossly unremarkable. Mucous membranes are moist. No oral lesions. NECK: Supple. Full range of motion. No adenopathy or thyromegaly. Neck veins are flat. CARDIOVASCULAR examination reveals regular rhythm and rate. S1, S2 normal. No S3, S4, or murmur. LUNGS: Reveal mostly clear breath sounds, but there are crackles at both bases. No rhonchi. A few scattered wheezes. ABDOMEN: Soft. Bowel sounds are heard. EXTREMITIES are intact. No cyanosis, clubbing, or edema. SKIN: Without rash except multiple bedbug bites noted on admission. NEUROLOGIC examination is brief but nonfocal. LABS: Reviewed. White count 22.7, hemoglobin 12.2, hematocrit 35.5, platelet count 350,000. Sodium is up actually 122, potassium 4.3, chloride 84, CO2 28, anion gap is 8, BUN and creatinine were 7 and 0.5. Microbiology is negative or pending. Chest x-ray shows some interstitial edema and some mild fluid overload. MEDICATIONS: Reviewed. In addition to 3% saline, the patient is getting Symbicort, Coreg, clonidine, Prozac, subcu heparin, p.r.n. Apresoline, DuoNeb, Levaquin, Narcan, Protonix, and risperidone. He apparently got 1 dose of tolvaptan yesterday. ASSESSMENT: 1. Resolving hyponatremia, likely initially hypovolemic in origin, with serum sodium this morning of 122. 2. History of poorly controlled hypertension. 3. Recent admission to the hospital for pneumonia. 4. Mild fluid overload. 5. Diabetes mellitus. 6. Bipolar disorder. 7. Chronic obstructive pulmonary disease from previous heavy tobacco use. 8. History of medication noncompliance. 9. Bed bug infestation. PLAN: From my perspective, the patient is doing well. He remains on O2 and 3% saline at 25 mL an hour. This morning, sodium is up to 122. He is going to get 1 dose of Lasix 40 mg IV push. Additional recommendations and suggestions are forthcoming. Once he is off the 3%, he can move out of the ICU. Will remain on updrafts and antibiotics. Prognosis is poor. MMODL / IJN: [id number] /
[2018-12-26] MEDS: HEPARIN SODIUM,PORCINE 5,000 UNIT/ML 1 ML VIAL SQ SCH ×2 (08:21→16:33)
[2018-12-26] MEDS: risperiDONE 1 MG TAB PO SCH ×2 (08:21→20:16)
[2018-12-26] MEDS: PANTOPRAZOLE 40 MG TABLET PO SCH (08:21)
[2018-12-26] MEDS: FLUoxetine HCL 20 MG CAP PO SCH (08:21)
[2018-12-26 10:16] VITALS: BMI 32.6
--- NOTE | 2018-12-26 10:17 | P.PN ---
Subjective Patient is seen in follow-up for hyponatremia. Sodium level up to 122 this morning. 3% has been discontinued. Chest x-ray revealed vascular congestion and he has been started on IV Lasix. Oral intake is fair. No vomiting or diarrhea. Vital signs are stable. General: The patient appeared well nourished and normally developed. HEENT: Head exam is unremarkable. Neck is without jugular venous distension. LUNGS: Breath sounds decreased. HEART: Rate and Rhythm are regular. First and second heart sounds normal. No murmurs, rubs or gallops. ABDOMEN: Abdominal exam reveals normal bowel sounds. Non-tender and non- distended. No evidence of peritonitis. EXTREMITITES: No clubbing, cyanosis, or edema. Objective - Vital Signs Vital signs: Vital Signs Temp 97.9 F 12/26/18 08:00 Pulse 87 12/26/18 09:00 Resp 22 12/26/18 09:00 BP 146/84 12/26/18 09:00 Pulse Ox 92 L 12/26/18 09:00 Intake & Output 12/25/18 12/26/18 12/26/18 18:59 06:59 18:59 Intake Total 1225 850 410 Output Total 1545 1735 700 Balance -320 -885 -290 Weight 106.3 kg Intake: IV 275 50 Sodium Chloride 3%( 275 50 Hypertonic) 500 ml @ 25 mls/hr IV .Q20H [facility] Rx#: [id number] Intake, IV Titration 325 25 Amount Sodium Chloride 0.9% 1, 50 000 ml @ 50 mls/hr IV . Q20H [facility] Rx#:[id number] Sodium Chloride 3%( 275 25 Hypertonic) 500 ml @ 25 mls/hr IV .Q20H [facility] Rx#: [id number] Oral 900 550 360 Output: Urine 1545 1735 700 Other: Voiding Method Indwelling Catheter Indwelling Catheter Indwelling Catheter - Labs CBC & Chem 7: 12/26/18 02:36 12/26/18 06:55 Labs: Abnormal Lab Results - Last 24 Hours (Table) 12/25/18 12/25/18 12/25/18 Range/Units 09:08 11:36 12:18 WBC (3.8-10.6) k/uL RBC (4.30-5.90) m/uL Hgb (13.0-17.5) gm/dL Hct (39.0-53.0) % Neutrophils # (1.3-7.7) k/uL Lymphocytes # (1.0-4.8) k/uL Monocytes # (0-1.0) k/uL Sodium 120 L (137-145) mmol/L Chloride (98-107) mmol/L BUN (9-20) mg/dL Creatinine (0.66-1.25) mg/dL POC Glucose (mg/dL) 122 H (75-99) mg/dL Uric Acid 1.8 L (3.5-8.5) mg/dL Calcium (8.4-10.2) mg/dL 12/25/18 12/25/18 12/25/18 Range/Units 15:16 19:32 23:23 WBC (3.8-10.6) k/uL RBC (4.30-5.90) m/uL Hgb (13.0-17.5) gm/dL Hct (39.0-53.0) % Neutrophils # (1.3-7.7) k/uL Lymphocytes # (1.0-4.8) k/uL Monocytes # (0-1.0) k/uL Sodium 118 L* 120 L 119 L* (137-145) mmol/L Chloride (98-107) mmol/L BUN (9-20) mg/dL Creatinine (0.66-1.25) mg/dL POC Glucose (mg/dL) (75-99) mg/dL Uric Acid (3.5-8.5) mg/dL Calcium (8.4-10.2) mg/dL 12/26/18 12/26/18 12/26/18 Range/Units 02:36 02:36 06:55 WBC 22.7 H (3.8-10.6) k/uL RBC 4.01 L (4.30-5.90) m/uL Hgb 12.2 L (13.0-17.5) gm/dL Hct 35.5 L (39.0-53.0) % Neutrophils # 15.0 H (1.3-7.7) k/uL Lymphocytes # 5.4 H (1.0-4.8) k/uL Monocytes # 1.1 H (0-1.0) k/uL Sodium 120 L 122 L (137-145) mmol/L Chloride 84 L (98-107) mmol/L BUN 7 L (9-20) mg/dL Creatinine 0.50 L (0.66-1.25) mg/dL POC Glucose (mg/dL) (75-99) mg/dL Uric Acid (3.5-8.5) mg/dL Calcium 8.0 L (8.4-10.2) mg/dL Microbiology - Last 24 Hours (Table) 12/23/18 18:28 Blood Culture - Preliminary Blood No Growth after 48 hours Assessment and Plan Plan: Assessment: 1. Hyponatremia. Appears hypervolemic today. Sodium level 122 this morning. Urine sodium 22 and urine osmolality 449 on admission. Patient was on Prozac which can induce SIADH. TSH normal. 2. Benign hypertension. Controlled. 3. Pneumonia maintained on antibiotics. 4. History of schizophrenia. Plan: 3% discontinue this morning. Increase Lasix to 40 mg IV twice daily. 1200 mL fluid restriction. Maintain ensure 3 times daily with meals. Repeat sodium level this afternoon. If no improvement, I will give him a dose of Samsca.
[2018-12-26 12:14] LABS: Potassium 4.4 mmol/L (3.5-5.1)
[2018-12-26] MEDS: IPRATROPIUM-ALBUTEROL 3 ML NEB INHALATION PRN ×3 (12:49→19:20)
--- NOTE | 2018-12-26 13:42 | P.PN ---
Subjective This is a pleasant 63 years old male with past medical history of hypertension, hyperlipidemia, diabetes mellitus, schizophrenia, cigarette smoker who presents because he was found by his family confused, and bad hygiene and covered in bedbugs. And a presentation patient was noticed to be confused however he is following commands, he can tell he was not eating and drinking. Coming to the hospital. He was recently treated for pneumonia however he failed to failure antibiotic. Also patient complaining of from dyspnea and worsening cough. On admission patient was noticed to be severely hyponatremic with sodium level was at 114, so he was admitted to the intensive care unit and treated with 3% saline under close monitoring and guidance by the bicycle racer. Patient has chronic leukocytosis, currently 29.9 on admission, down to 22.3. Compartment in October histolytica BC was 22.3 as well. Hemoglobin 12.4 and platelet count 291. Cre atinine is normal, liver enzymes elevated. Urinalysis infection. Chest x-ray: No infiltrate. Although the previous chest x-ray from the same date was suspicious for right lower lobe infiltrate. EKG showing normal sinus rhythm at [address]-T changes. On admission. Since 1 dose of Levaquin and 1 dose of ceftriaxone 1 dose of vancomycin and several boluses of normal saline, and currently On oral vancomycin 12/25/2018 patient remains in the ICU, is awake and alert. He denies chest pain or dyspnea. He has somewhat calcified but without limp. His dizziness has improved. And he is moving more easily. patient denies abdominal pain or nausea vomiting.. Sodium went up to 120 today.chest x-ray showing CHF with possible bibasilar confluent edema versus pneumonia. Patient will continue with the same therapy with 3% normal saline and bronchodilators with oral Levaquin, also fluid restriction is added. he has no itching and a rash which is improving as well 12/26/2018 Patient still needs close monitoring in the ICU in view of his severely low sodium not improving with 3% saline infusion. Discussed with the ICU staff team. Patient got 1 dose of Lasix today and bicycle racer recommended samsca today if Na is not Improving. He is awake and alert though, not in distress including no respiratory distress. His rash in the extremities is improving significantly with therapy. Risks of Vitas looks stable. Sodium 119. WBC is 22.7. Chest x-ray from today showing no significant change with possible congestion plus bibasilar edema versus pneumonia. Pulmonary team of following the case closely. Review of systems CONSTITUTIONAL: No fever, no malaise, no fatigue. HEENT: No recent visual problems or hearing problems. Denied any sore throat. CARDIOVASCULAR: No orthopnea, PND, no palpitations, no syncope. PULMONARY: No shortness of breath,no hemoptysis. GASTROINTESTINAL: No diarrhea, no nausea, no vomiting, no abdominal pain. Normoactive bowel sounds. NEUROLOGICAL: No headaches, no weakness, no numbness. HEMATOLOGICAL: Denies any bleeding GENITOURINARY: Denies any burning micturition, frequency, or urgency. MUSCULOSKELETAL/RHEUMATOLOGICAL: Denies any joint pain, swelling, or any muscle pain. ENDOCRINE: Denies any polyuria or polydipsia. Active Medications Generic Name Dose Route Start Last Admin Trade Name Freq PRN Reason Stop Dose Admin Albuterol/Ipratropium 3 ml 12/23/18 21:33 12/26/18 12:49 Duoneb 0.5 Mg-3 Mg/3 Ml Soln INHALATION 3 ml RT-QID PRN Administration Shortness Of Breath Budesonide/Formoterol Fumarate 2 puff 12/24/18 08:00 12/26/18 07:40 Symbicort 160-4.5 Mcg Inhaler INHALATION 2 puff RT-BID [facility] Administration Carvedilol 3.125 mg 12/24/18 07:30 12/26/18 06:33 Coreg PO 3.125 mg AC-BID [facility] Administration Clonidine HCl 1 patch 12/23/18 23:45 12/24/18 00:09 Catapres-Tts 0.2mg Patch TRANSDERM 1 patch Q7D [facility] Administration Fluoxetine HCl 20 mg 12/24/18 09:00 12/26/18 08:21 Prozac PO 20 mg DAILY [facility] Administration Furosemide 40 mg 12/26/18 21:00 Lasix IV Q12HR [facility] Heparin Sodium (Porcine) 5,000 unit 12/24/18 00:00 12/26/18 08:21 Heparin SQ 5,000 unit Q8HR [facility] Administration Hydralazine HCl 10 mg 12/23/18 23:44 12/25/18 14:09 Apresoline IVP 10 mg Q4HR PRN Administration Blood Pressure - High Levofloxacin 500 mg 12/24/18 21:00 12/25/18 21:40 Levaquin PO 500 mg Q24H [facility] Administration Naloxone HCl 0.2 mg 12/23/18 21:31 Narcan IV Q2M PRN Opioid Reversal Pantoprazole Sodium 40 mg 12/26/18 09:00 12/26/18 08:21 Protonix PO 40 mg DAILY [facility] Administration Risperidone 3 mg 12/23/18 21:45 12/26/18 08:21 Risperdal PO 3 mg BID [facility] Administration Objective - Vital Signs Vital signs: Vital Signs Temp 97.4 F L 12/26/18 12:00 Pulse 96 12/26/18 13:00 Resp 13 12/26/18 13:00 BP 104/92 12/26/18 13:00 Pulse Ox 97 12/26/18 13:00 Intake & Output 12/25/18 12/26/18 12/26/18 18:59 06:59 18:59 Intake Total 1225 850 970 Output Total 1545 1735 2165 Balance -320 -194 -2426 Weight 106.3 kg 106.3 kg Intake: IV 275 50 Sodium Chloride 3%( 275 50 Hypertonic) 500 ml @ 25 mls/hr IV .Q20H [facility] Rx#: [id number] Intake, IV Titration 325 25 Amount Sodium Chloride 0.9% 1, 50 000 ml @ 50 mls/hr IV . Q20H [facility] Rx#:[id number] Sodium Chloride 3%( 275 25 Hypertonic) 500 ml @ 25 mls/hr IV .Q20H [facility] Rx#: [id number] Oral 900 550 920 Output: Urine 1545 1735 2165 Other: Voiding Method Indwelling Catheter Indwelling Catheter Indwelling Catheter - Exam -GENERAL: The patient is confused but answers questions and follow commands. n ot in any acute distress. Well developed, well nourished. HEENT: Pupils are round and equally reacting to light. EOMI. No scleral icterus. No conjunctival pallor. Normocephalic, atraumatic. No pharyngeal erythema. No thyromegaly. CARDIOVASCULAR: S1 and S2 present. No murmurs, rubs, or gallops. PULMONARY: Chest is clear to auscultation, no wheezing or crackles. ABDOMEN: Soft, nontender, nondistended, normoactive bowel sounds. No palpable organomegaly. MUSCULOSKELETAL: No joint swelling or deformity. EXTREMITIES: No cyanosis, clubbing, or pedal edema. NEUROLOGICAL: Gross neurological examination did not reveal any focal deficits. -SKIN: No lid but bites and petechiae all over his body, more in the extremities, significantly improved and change in color from rectal think - Labs CBC & Chem 7: 12/26/18 02:36 12/26/18 11:45 Labs: Abnormal Lab Results - Last 24 Hours (Table) 12/25/18 12/25/18 12/25/18 Range/Units 15:16 19:32 23:23 WBC (3.8-10.6) k/uL RBC (4.30-5.90) m/uL Hgb (13.0-17.5) gm/dL Hct (39.0-53.0) % Neutrophils # (1.3-7.7) k/uL Lymphocytes # (1.0-4.8) k/uL Monocytes # (0-1.0) k/uL Sodium 118 L* 120 L 119 L* (137-145) mmol/L Chloride (98-107) mmol/L BUN (9-20) mg/dL Creatinine (0.66-1.25) mg/dL Calcium (8.4-10.2) mg/dL 12/26/18 12/26/18 12/26/18 Range/Units 02:36 02:36 06:55 WBC 22.7 H (3.8-10.6) k/uL RBC 4.01 L (4.30-5.90) m/uL Hgb 12.2 L (13.0-17.5) gm/dL Hct 35.5 L (39.0-53.0) % Neutrophils # 15.0 H (1.3-7.7) k/uL Lymphocytes # 5.4 H (1.0-4.8) k/uL Monocytes # 1.1 H (0-1.0) k/uL Sodium 120 L 122 L (137-145) mmol/L Chloride 84 L (98-107) mmol/L BUN 7 L (9-20) mg/dL Creatinine 0.50 L (0.66-1.25) mg/dL Calcium 8.0 L (8.4-10.2) mg/dL 12/26/18 Range/Units 11:45 WBC (3.8-10.6) k/uL RBC (4.30-5.90) m/uL Hgb (13.0-17.5) gm/dL Hct (39.0-53.0) % Neutrophils # (1.3-7.7) k/uL Lymphocytes # (1.0-4.8) k/uL Monocytes # (0-1.0) k/uL Sodium 119 L* (137-145) mmol/L Chloride (98-107) mmol/L BUN (9-20) mg/dL Creatinine (0.66-1.25) mg/dL Calcium (8.4-10.2) mg/dL Microbiology - Last 24 Hours (Table) 12/23/18 18:28 Blood Culture - Preliminary Blood No Growth after 48 hours Assessment and Plan Assessment: Hypovolemic hyponatremia Severe dehydration, improving bilateral basal airway disease suspicious for edema versus pneumonia Leukocytosis 22.7 History of schizophrenia Nicotine dependence Hypertension Diabetes mellitus Hyperlipidemia Plan: This is a pleasant 63 years old male who presents with metabolic encephalopathy secondary to hyponatremia, continue with replacement therapy with saline solutions. Follow-up recommendation of from nephrology and pulmonary/critical care team.Labs and medication were reviewed. We will consider hematology consult for her persistent leukocytosis. Continue same treatment. Continue with symptomatic treatment. Resume home medication. Monitor lytes and vitals. DVT and GI prophylaxis. Further recommendations of the clinical course of the patient DVT prophylaxis: Subcutaneous heparin GI Prophylaxis: Pepcid PT/OT: Pending Prognosis is guarded
[2018-12-26] MEDS: LEVOFLOXACIN 500 MG TAB PO SCH (20:16)
[2018-12-26] MEDS: FUROSEMIDE 10 MG/ML 4 ML VIAL IV SCH (22:15)
[2018-12-27] MEDS: HEPARIN SODIUM,PORCINE 5,000 UNIT/ML 1 ML VIAL SQ SCH ×3 (01:00→17:18)
[2018-12-27 04:50] LABS: HCT 38.7 % (39.0-53.0); HGB 12.9 gm/dL (13.0-17.5); MCH 30.1 pg (25.0-35.0); MCHC 33.4 g/dL (31.0-37.0); MCV 90.1 fL (80.0-100.0); Mean Platelet Volume 5.8; Platelet Count 299 k/uL (150-450); RBC 4.29 m/uL (4.30-5.90); RDW 12.6 % (11.5-15.5); WBC 21.1 k/uL (3.8-10.6)
[2018-12-27 05:07] LABS: African American GFR (CKD) >90 (>60 ml/min/1.73 sqM); Anion Gap 5 mmol/L; Blood Urea Nitrogen 10 mg/dL (9-20); Calcium 8.5 mg/dL (8.4-10.2); Carbon Dioxide 33 mmol/L (22-30); Chloride 89 mmol/L (98-107); Glucose 112 mg/dL (74-99); Potassium 4.7 mmol/L (3.5-5.1); Sodium 127 mmol/L (137-145)
[2018-12-27 05:45] LABS: Lymphocytes # (M) 8.02 k/uL (1.0-4.8); Monocytes # (M) 1.27 k/uL (0-1.0); Neutrophils % (M) 56 %; Nucleated Red Blood Cells 0 /100 WBC (0-0); Total Cells Counted 100
[2018-12-27] MEDS: CARVEDILOL 3.125 MG TAB PO SCH ×2 (06:47→17:18)
[2018-12-27] MEDS: SYMBICORT 160-4.5 MCG INHALER INHALATION SCH (07:17)
[2018-12-27] MEDS: IPRATROPIUM-ALBUTEROL 3 ML NEB INHALATION PRN ×4 (07:18→19:25)
[2018-12-27] MEDS: FUROSEMIDE 10 MG/ML 4 ML VIAL IV SCH (08:44)
[2018-12-27] MEDS: PANTOPRAZOLE 40 MG TABLET PO SCH (08:44)
[2018-12-27] MEDS: FLUoxetine HCL 20 MG CAP PO SCH (08:45)
[2018-12-27] MEDS: risperiDONE 1 MG TAB PO SCH ×2 (08:46→20:57)
--- NOTE | 2018-12-27 09:32 | P.PN ---
Subjective This is a pleasant 63 years old male with past medical history of hypertension, hyperlipidemia, diabetes mellitus, schizophrenia, cigarette smoker who presents because he was found by his family confused, and bad hygiene and covered in bedbugs. And a presentation patient was noticed to be confused however he is following commands, he can tell he was not eating and drinking. Coming to the hospital. He was recently treated for pneumonia however he failed to failure antibiotic. Also patient complaining of from dyspnea and worsening cough. On admission patient was noticed to be severely hyponatremic with sodium level was at 114, so he was admitted to the intensive care unit and treated with 3% saline under close monitoring and guidance by the tripoler. Patient has chronic leukocytosis, currently 29.9 on admission, down to 22.3. Compartment in October histolytica BC was 22.3 as well. Hemoglobin 12.4 and platelet count 291. Cre atinine is normal, liver enzymes elevated. Urinalysis infection. Chest x-ray: No infiltrate. Although the previous chest x-ray from the same date was suspicious for right lower lobe infiltrate. EKG showing normal sinus rhythm at [address]-T changes. On admission. Since 1 dose of Levaquin and 1 dose of ceftriaxone 1 dose of vancomycin and several boluses of normal saline, and currently On oral vancomycin 12/25/2018 patient remains in the ICU, is awake and alert. He denies chest pain or dyspnea. He has somewhat calcified but without limp. His dizziness has improved. And he is moving more easily. patient denies abdominal pain or nausea vomiting.. Sodium went up to 120 today.chest x-ray showing CHF with possible bibasilar confluent edema versus pneumonia. Patient will continue with the same therapy with 3% normal saline and bronchodilators with oral Levaquin, also fluid restriction is added. he has no itching and a rash which is improving as well 12/26/2018 Patient still needs close monitoring in the ICU in view of his severely low sodium not improving with 3% saline infusion. Discussed with the ICU staff team. Patient got 1 dose of Lasix today and tripoler recommended samsca today if Na is not Improving. He is awake and alert though, not in distress including no respiratory distress. His rash in the extremities is improving significantly with therapy. Risks of Vitas looks stable. Sodium 119. WBC is 22.7. Chest x-ray from today showing no significant change with possible congestion plus bibasilar edema versus pneumonia. Pulmonary team of following the case closely. 12/27/2018 Patient is awake and remains in the ICU for sodium correction. His dyspnea is improving. He denies dizziness and his generalized weakness is improving. His sodium is trending up today to 127. Patient has persistent leukocytosis of 21.1, patient is with possible pneumonia on oral Levaquin. However his leukocytosis is going on for a while Since 10/2018, we'll call hematology consult. Objective - Vital Signs Vital signs: Vital Signs Temp 97.6 F 12/27/18 04:00 Pulse 101 H 12/27/18 07:32 Resp 18 12/27/18 07:00 BP 134/95 12/27/18 07:00 Pulse Ox 90 L 12/27/18 07:00 Intake & Output 12/26/18 12/27/18 12/27/18 18:59 06:59 18:59 Intake Total 1210 270 Output Total 2615 3255 Balance -1405 -2985 Weight 106.3 kg 102.9 kg Intake: IV 50 Sodium Chloride 3%( 50 Hypertonic) 500 ml @ 25 mls/hr IV .Q20H [facility] Rx#: [id number] Oral 1160 270 Output: Urine 2615 3255 Other: Voiding Method Indwelling Catheter Indwelling Catheter Indwelling Catheter - Exam -GENERAL: The patient is confused but answers questions and follow commands. not in any acute distress. Well developed, well nourished. HEENT: Pupils are round and equally reacting to light. EOMI. No scleral icterus. No conjunctival pallor. Normocephalic, atraumatic. No pharyngeal erythema. No thyromegaly. CARDIOVASCULAR: S1 and S2 present. No murmurs, rubs, or gallops. PULMONARY: Chest is clear to auscultation, no wheezing or crackles. ABDOMEN: Soft, nontender, nondistended, normoactive bowel sounds. No palpable organomegaly. MUSCULOSKELETAL: No joint swelling or deformity. EXTREMITIES: No cyanosis, clubbing, or pedal edema. NEUROLOGICAL: Gross neurological examination did not reveal any focal deficits. -SKIN: No lid but bites and petechiae all over his body, more in the extremities, significantly improved and change in color from rectal think - Labs CBC & Chem 7: 12/27/18 04:32 12/27/18 04:39 Labs: Abnormal Lab Results - Last 24 Hours (Table) 12/26/18 12/26/18 12/26/18 Range/Units 11:45 16:56 21:05 WBC (3.8-10.6) k/uL RBC (4.30-5.90) m/uL Hgb (13.0-17.5) gm/dL Hct (39.0-53.0) % Neutrophils # (Manual) (1.3-7.7) k/uL Lymphocytes # (Manual) (1.0-4.8) k/uL Monocytes # (Manual) (0-1.0) k/uL Sodium 119 L* 120 L 126 L (137-145) mmol/L Chloride (98-107) mmol/L Carbon Dioxide (22-30) mmol/L Creatinine (0.66-1.25) mg/dL Glucose (74-99) mg/dL 12/27/18 12/27/18 12/27/18 Range/Units 00:56 04:32 04:39 WBC 21.1 H (3.8-10.6) k/uL RBC 4.29 L (4.30-5.90) m/uL Hgb 12.9 L (13.0-17.5) gm/dL Hct 38.7 L (39.0-53.0) % Neutrophils # (Manual) 11.82 H (1.3-7.7) k/uL Lymphocytes # (Manual) 8.02 H (1.0-4.8) k/uL Monocytes # (Manual) 1.27 H (0-1.0) k/uL Sodium 126 L 127 L (137-145) mmol/L Chloride 89 L (98-107) mmol/L Carbon Dioxide 33 H (22-30) mmol/L Creatinine 0.60 L (0.66-1.25) mg/dL Glucose 112 H (74-99) mg/dL 12/27/18 Range/Units 04:39 WBC (3.8-10.6) k/uL RBC (4.30-5.90) m/uL Hgb (13.0-17.5) gm/dL Hct (39.0-53.0) % Neutrophils # (Manual) (1.3-7.7) k/uL Lymphocytes # (Manual) (1.0-4.8) k/uL Monocytes # (Manual) (0-1.0) k/uL Sodium 127 L (137-145) mmol/L Chloride (98-107) mmol/L Carbon Dioxide (22-30) mmol/L Creatinine (0.66-1.25) mg/dL Glucose (74-99) mg/dL Microbiology - Last 24 Hours (Table) 12/23/18 18:28 Blood Culture - Preliminary Blood No Growth after 72 hours Assessment and Plan Assessment: Hypovolemic hyponatremia Severe dehydration, improving bilateral basal airway disease suspicious for edema versus pneumonia Leukocytosis 22.7, since 10/2018 History of schizophrenia Nicotine dependence Hypertension Diabetes mellitus Hyperlipidemia Plan: This is a pleasant 63 years old male who presents with metabolic encephalopathy secondary to hyponatremia, continue with replacement therapy with saline solu tions. Follow-up recommendation of from nephrology and pulmonary/critical care team.Labs and medication were reviewed. We will consider hematology consult for her persistent leukocytosis. Continue same treatment. Continue with symptomatic treatment. Resume home medication. Monitor lytes and vitals. DVT and GI prophylaxis. Further recommendations of the clinical course of the patient DVT prophylaxis: Subcutaneous heparin GI Prophylaxis: Pepcid PT/OT: Pending Prognosis is guarded
[2018-12-27] MEDS ORDERED: TOLVAPTAN 15 MG 1/2 TABLET PO ONE (09:45)
[2018-12-27] MEDS ORDERED: RX INFO: IV CONTRAST WAS GIVEN 1 EACH MISC MISCELLANE PRN (10:52)
[2018-12-27] MEDS ORDERED: IPRATROPIUM-ALBUTEROL 3 ML NEB INHALATION PRN (10:54)
--- NOTE | 2018-12-27 12:44 | CT ---
EXAMINATION TYPE: CT chest w con DATE OF EXAM: 12/27/2018 COMPARISON: Chest x-ray 12/26/2018 HISTORY: R/O Lung mass CT DLP: 613.6 mGycm, Automated exposure control for dose reduction was used. CONTRAST: Performed injected with 100 mL of Isovue 300. TECHNIQUE: Axial images were obtained at 5 mm thick sections. Reconstructed images are reviewed on [employer] computer in the coronal plane. FINDINGS: Portion of the thyroid visualized is normal. Emphysematous changes are present. Mild infiltrate is within the lingula adjacent to the minor fissur e. Small left pleural effusion is present. Minimal right pleural effusion is present. There is consol idation at the left lower lobe could be related to compressive atelectasis or pneumonia. There are multiple prominent bilateral axillary lymph nodes present. No enlarged mediastinal lymph no rodney are evident. There are some borderline size lymph nodes within the mediastinum. There is an enlarged right superior hilar lymph node measuring 1.2 cm in size. There is a right infra hilar area of increased density within the peribronchial region which is nonspecific. Mass or infiltr ate should be considered. The ascending aorta diameter at the level of the main pulmonary artery is 3.9 cm. The main pulmonary artery diameter at the bifurcation is 3.[address] sections are obtained through the upper abdomen. Abdomen is essentially unremarkable. IMPRESSIONS: 1. Small bilateral pleural effusions. 2. Consolidation which could be compressive atelectasis or pneumonia at the left base. 3. Infiltrated along the major fissure on the left is nonspecific. Consider pneumonia within the diff erential. 4. There are multiple bilateral axillary and mediastinal lymph nodes. An enlarged lymph node is withi n the right hilar region. 5. There is increased density in the peribronchial regions of the right infrahilar region which is no nspecific. Discrete suspicious infectious etiology is not excluded. This is a nidus typical for a mas s which would be within the differential. Follow-up examinations are recommended.
--- NOTE | 2018-12-27 13:00 | PN ---
PROGRESS NOTE Patient is seen for followup for hyponatremia. Patient was on 3% saline initially which was discontinued over the weekend. He did get a dose of Samsca as serum sodium had worsened with normal saline. Currently, sodium is staying at about 127-129. Patient is also maintained on Lasix 40 mg IV q.12 hours. PHYSICAL EXAMINATION: On examination today, blood pressure was 115/81, heart rate 86 per minute. He is afebrile. Examination of the heart S1, S2. Examination of the lungs, bilateral breath sounds are heard. Abdomen is soft, non-tender. Examination of the lower extremities shows no significant edema. HAND TRUCKER exam grossly intact. LABS: Show sodium 127, potassium 4.7, CO2 is 33, BUN 10, serum creatinine 0.6. ASSESSMENT: 1. Hyponatremia, currently euvolemic/hypervolemic, maintained on IV Lasix which we will continue. I will repeat another dose of Samsca today and continue to encourage increased oral intake and avoid and maintain patient on fluid restriction. 2. Schizophrenia. 3. Mental status changes associated with hyponatremia, status post 3% saline, currently improved. 4. Hypervolemia, maintained on IV Lasix which I will continue. Plan for surgery and assessment also add pneumonia maintained on antibiotics. PLAN: Repeat Samsca. Continue with IV Lasix. Follow up on CT of the chest. MMODL / IJN: [id number] /
--- NOTE | 2018-12-27 15:58 | P.PN ---
Subjective Progress Note Date: 12/27/18 This is a 63-year-old male patient was hospitalized for confusion. The patient presented with confusion and altered mentation. He was found to be hyponatremic and the sodium level was 114. He has been gradually treated here in the intensive care unit and the patient was placed on a 3% saline infusion at the rate of 25 mL an hour. The patient ultimately improved and the sodium level gradually was on the rise. This morning, the sodium level was up to 127. Based on that, the patient was taken off the hypertonic city solution and the patient was given a dose of some samsca. The patient is also being treated for bilateral pneumonia. Based on the persistent nature of the patient's pulmonary infiltrate, I ordered a CAT scan of the chest that showed emphysematous changes bilaterally along with a left lingular infiltrate adjacent to the minor fissure, small left-sided pleural effusion, small right-sided pleural effusion, consolidation of the left lower lobe along with some compressive atelectasis. There was some prominent bilateral axillary lymph nodes. No enlarged mediastinal lymph nodes noted. There was enlarged right suprahilar lymph node measuring 1.2 cm. The patient is currently being treated with Levaquin. No other new complaints otherwise for now. Nephrology is on the case regarding the ongoing hyponatremia. Objective - Vital Signs Vital signs: Vital Signs Temp 98.1 F 12/27/18 12:00 Pulse 105 H 12/27/18 15:29 Resp 16 12/27/18 14:00 BP 96/70 12/27/18 14:00 Pulse Ox 96 12/27/18 14:00 Intake & Output 12/26/18 12/27/18 12/27/18 18:59 06:59 18:59 Intake Total 1210 270 450 Output Total 2615 3255 1750 Balance -1405 -2985 -1300 Weight 106.3 kg 102.9 kg Intake: IV 50 Sodium Chloride 3%( 50 Hypertonic) 500 ml @ 25 mls/hr IV .Q20H [facility] Rx#: [id number] Oral 1160 270 450 Output: Urine 2615 3255 1750 Other: Voiding Method Indwelling Catheter Indwelling Catheter Indwelling Catheter - Exam -GENERAL: The patient is awake and alert and the patient is following commands. Mental status improved considerably. Neurologic exam is nonfocal. -HEENT: Pupils are round and equally reacting to light. EOMI. No scleral icterus. No conjunctival pallor. Normocephalic, atraumatic. No pharyngeal erythema. No thyromegaly.dry Mucous membranes CARDIOVASCULAR: S1 and S2 present. No murmurs, rubs, or gallops. PULMONARY: Chest is clear to auscultation, no wheezing or crackles. ABDOMEN: Soft, nontender, nondistended, normoactive bowel sounds. No palpable organomegaly. MUSCULOSKELETAL: No joint swelling or deformity. EXTREMITIES: No cyanosis, clubbing, or pedal edema. NEUROLOGICAL: Gross neurological examination did not reveal any focal deficits. -SKIN: No lid but bites and petechiae all over his body, more in the extremities - Labs CBC & Chem 7: 12/27/18 04:32 12/27/18 13:42 Labs: Abnormal Lab Results - Last 24 Hours (Table) 12/26/18 12/26/18 12/27/18 Range/Units 16:56 21:05 00:56 WBC (3.8-10.6) k/uL RBC (4.30-5.90) m/uL Hgb (13.0-17.5) gm/dL Hct (39.0-53.0) % Neutrophils # (Manual) (1.3-7.7) k/uL Lymphocytes # (Manual) (1.0-4.8) k/uL Monocytes # (Manual) (0-1.0) k/uL Sodium 120 L 126 L 126 L (137-145) mmol/L Chloride (98-107) mmol/L Carbon Dioxide (22-30) mmol/L Creatinine (0.66-1.25) mg/dL Glucose (74-99) mg/dL 12/27/18 12/27/18 12/27/18 Range/Units 04:32 04:39 04:39 WBC 21.1 H (3.8-10.6) k/uL RBC 4.29 L (4.30-5.90) m/uL Hgb 12.9 L (13.0-17.5) gm/dL Hct 38.7 L (39.0-53.0) % Neutrophils # (Manual) 11.82 H (1.3-7.7) k/uL Lymphocytes # (Manual) 8.02 H (1.0-4.8) k/uL Monocytes # (Manual) 1.27 H (0-1.0) k/uL Sodium 127 L 127 L (137-145) mmol/L Chloride 89 L (98-107) mmol/L Carbon Dioxide 33 H (22-30) mmol/L Creatinine 0.60 L (0.66-1.25) mg/dL Glucose 112 H (74-99) mg/dL 12/27/18 12/27/18 Range/Units 09:22 13:42 WBC (3.8-10.6) k/uL RBC (4.30-5.90) m/uL Hgb (13.0-17.5) gm/dL Hct (39.0-53.0) % Neutrophils # (Manual) (1.3-7.7) k/uL Lymphocytes # (Manual) (1.0-4.8) k/uL Monocytes # (Manual) (0-1.0) k/uL Sodium 129 L 131 L (137-145) mmol/L Chloride (98-107) mmol/L Carbon Dioxide (22-30) mmol/L Creatinine (0.66-1.25) mg/dL Glucose (74-99) mg/dL Microbiology - Last 24 Hours (Table) 12/23/18 18:28 Blood Culture - Preliminary Blood No Growth after 72 hours Assessment and Plan Plan: #1 hyponatremia on that investigation. The patient's sodium level has gradually improved with 3% hypertonic saline and the sodium has nearly normalized for now. The hypertonic saline was discontinued today. Mental status improved considerably. Consider underlying pneumonia and his hyponatremia. Consider underlying malignancy. #2 lingular and left lower lobe pneumonia currently on Levaquin, along with nonspecific mediastinal lymph node largest being 1.2 cm right hilar lymph node. #3 Diabetes mellitus. #4 Bipolar disorder. #5 History of chronic obstructive pulmonary disease. #6 Previous tobacco dependence. #7 History of medication noncompliance. #8 Bed bug infestation. #9 hypertension #10 severe dehydration, improved #11 leukocytosis, improved and her white cell count is down to 21 Plan: Monitor the sodium level. Continue Levaquin orally. Continue DuoNeb about treatments on the clock. Pulmonate toileting. Prozac has been reported to cause hyponatremia and symptoms of SIADH. Nephrology opportunity to medication for now. We'll continue to follow. CAT scan of the chest was noted. There is some nonspecific mediastinal lymph nodes and the right hilar lymph node which she is to monitor the later stage with another CAT scan. The patient be transferred later stage to a medical floor.
--- NOTE | 2018-12-27 18:28 | P.CONS ---
History of Present Illness - Reason for Consult Consult date: 12/27/18 leukocytosis Requesting physician: Chandan E Sheet - Chief Complaint failure to thrive - History of Present Illness Mr. Valle is a pleasant 63-year-old male with a rather complex past medical history and medication list who we've been asked to see due to an eleva laith WBC. All of the differential is increased as well. Patient is not aware of having a problem with his white blood cells, on chart reviewed this was noted to be present as far back as 2015 but, it is progressively worsening. Patient denies knowledge of fevers, waking up sweating to where he has to change his pajamas or his bedding, is denying weight loss, vomiting, lymph node swellings, abdominal distention or bloating, changes in bowel or bladder habits, bleeding, new or unusual pain, swelling in the legs, currently he is very weak. Review of Systems 10 point review of systems is as stated in HPI Past Medical History Past Medical History: Diabetes Mellitus, Hypertension History of Any Multi-Drug Resistant Organisms: None Reported Past Surgical History: Orthopedic Surgery Additional Past Surgical History / Comment(s): sinus sx Past Anesthesia/Blood Transfusion Reactions: No Reported Reaction Past Psychological History: Schizophrenia Smoking Status: Current every day smoker Past Alcohol Use History: None Reported Past Drug Use History: None Reported Medications and Allergies Home Medications Medication Instructions Recorded Confirmed Type FLUoxetine HCL [PROzac] 20 mg PO DAILY #30 cap 07/10/16 12/23/18 Rx cloNIDine HCL [Catapres] 0.1 mg PO BID #60 tab 07/10/16 12/23/18 Rx risperiDONE 3 mg PO BID #60 tablet 07/10/16 12/23/18 Rx Budesonide-Formot 160-4.5 Mcg 2 puff INHALATION RT-BID #1 puff 11/13/18 12/23/18 Rx [Symbicort 160-4.5 Mcg Inhaler] Carvedilol [Coreg] 3.125 mg PO AC-BID 12/23/18 12/23/18 History Ipratropium-Albuterol Nebulize 3 ml INHALATION RT-QID PRN 12/23/18 12/23/18 History [Duoneb 0.5 mg-3 mg/3 ml Soln] Allergies Allergy/AdvReac Type Severity Reaction Status Date / Time Sulfa (Sulfonamide Allergy Rash/Hives Verified 12/23/18 16:46 Antibiotics) Physical Exam Vitals: Vital Signs Temp Pulse Resp BP Pulse Ox 12/27/18 17:00 79 13 112/77 93 L 12/27/18 16:00 98.1 F 97 23 108/76 94 L 12/27/18 15:29 105 H 12/27/18 15:19 106 H 12/27/18 15:00 115 H 20 112/86 93 L 12/27/18 14:00 98 16 96/70 96 12/27/18 13:00 102 H 18 103/62 94 L 12/27/18 12:00 98.1 F 104 H 12 114/77 96 12/27/18 11:00 86 17 115/81 92 L 12/27/18 10:00 80 21 90 L 12/27/18 09:00 90 23 102/72 92 L 12/27/18 08:00 98.1 F 84 15 114/74 92 L 12/27/18 07:32 101 H 12/27/18 07:20 105 H 12/27/18 07:00 98 18 134/95 90 L 12/27/18 06:00 83 16 118/84 92 L 12/27/18 05:00 86 13 131/89 93 L 12/27/18 04:00 97.6 F 90 14 134/90 92 L 12/27/18 03:00 80 11 L 137/88 88 L 12/27/18 02:00 96 16 138/82 12/27/18 01:00 91 14 122/75 91 L 12/27/18 00:00 97.9 F 70 16 131/68 90 L 12/26/18 23:00 90 11 L 145/87 83 L 12/26/18 22:16 73 10 L 139/83 93 L 12/26/18 22:00 75 17 155/94 93 L 12/26/18 21:00 64 10 L 113/78 93 L 12/26/18 20:00 80 19 123/82 90 L 12/26/18 19:37 82 12/26/18 19:21 78 12/26/18 19:00 77 16 101/78 95 Intake and Output 12/27/18 12/27/18 12/27/18 06:59 14:59 22:59 Intake Total 240 450 100 Output Total 1055 1750 115 Balance -815 -1300 -15 Intake: Oral 240 450 100 Output: Urine 1055 1750 115 Other: Voiding Method Indwelling Catheter Indwelling Catheter Indwelling Catheter Weight 102.9 kg - Constitutional General appearance: average body habitus, cooperative, no acute distress - EENT pt right eye has yellow crusting, sclera is not unusually red/blood shot Eyes: anicteric sclerae, EOMI - Neck Neck: no lymphadenopathy - Respiratory Respiratory: bilateral: diminished - Cardiovascular Rhythm: regular Heart sounds: normal: S1, S2 Abnormal Heart Sounds: no systolic murmur, no diastolic murmur, no rub, no S3 Gallop, no S4 Gallop, no click, no other leg Peripheral Edema: bilateral: None - Gastrointestinal fullness in the LUQ, possible palpation of the the lower edge of the spleen on inspiration General gastrointestinal: no absent bowel sounds, no decreased bowel sounds, no distended, no hepatomegaly, no hyperactive bowel sounds, normal bowel sounds, no organomegaly, no rigid, no scaphoid, soft, no splenomegaly, no tenderness, no umbilical hernia, no ventral hernia - Musculoskeletal Musculoskeletal: generalized weakness - Psychiatric Psychiatric: A&O x's 3, appropriate affect, intact judgment & insight Results CBC & Chem 7: 12/27/18 04:32 12/27/18 13:42 Labs: Abnormal Lab Results - Last 24 Hours (Table) 12/26/18 12/27/18 12/27/18 Range/Units 21:05 00:56 04:32 WBC 21.1 H (3.8-10.6) k/uL RBC 4.29 L (4.30-5.90) m/uL Hgb 12.9 L (13.0-17.5) gm/dL Hct 38.7 L (39.0-53.0) % Neutrophils # (Manual) 11.82 H (1.3-7.7) k/uL Lymphocytes # (Manual) 8.02 H (1.0-4.8) k/uL Monocytes # (Manual) 1.27 H (0-1.0) k/uL Sodium 126 L 126 L (137-145) mmol/L Chloride (98-107) mmol/L Carbon Dioxide (22-30) mmol/L Creatinine (0.66-1.25) mg/dL Glucose (74-99) mg/dL 12/27/18 12/27/18 12/27/18 Range/Units 04:39 04:39 09:22 WBC (3.8-10.6) k/uL RBC (4.30-5.90) m/uL Hgb (13.0-17.5) gm/dL Hct (39.0-53.0) % Neutrophils # (Manual) (1.3-7.7) k/uL Lymphocytes # (Manual) (1.0-4.8) k/uL Monocytes # (Manual) (0-1.0) k/uL Sodium 127 L 127 L 129 L (137-145) mmol/L Chloride 89 L (98-107) mmol/L Carbon Dioxide 33 H (22-30) mmol/L Creatinine 0.60 L (0.66-1.25) mg/dL Glucose 112 H (74-99) mg/dL 12/27/18 Range/Units 13:42 WBC (3.8-10.6) k/uL RBC (4.30-5.90) m/uL Hgb (13.0-17.5) gm/dL Hct (39.0-53.0) % Neutrophils # (Manual) (1.3-7.7) k/uL Lymphocytes # (Manual) (1.0-4.8) k/uL Monocytes # (Manual) (0-1.0) k/uL Sodium 131 L (137-145) mmol/L Chloride (98-107) mmol/L Carbon Dioxide (22-30) mmol/L Creatinine (0.66-1.25) mg/dL Glucose (74-99) mg/dL Microbiology - Last 24 Hours (Table) 12/23/18 18:28 Blood Culture - Preliminary Blood No Growth after [address] scan - chest: report reviewed Assessment and Plan (1) Leukocytosis Narrative/Plan: It is noted that all of the granulocytes in the differential are elevated as well. Labs have been ordered for evaluation. No plans for bone marrow at this moment. If this persists it may be considered outpatient. Agree with current plan of care and treatment of current condition. Current Visit: Yes Status: Chronic Priority: Medium Code(s): D72.829 - ELEVATED WHITE BLOOD CELL COUNT, UNSPECIFIED SNOMED Code(s): 408499032 Plan: CT scan report was reviewed. Treatment of current condition then a follow-up CT scan to re-evaluate
[2018-12-27] MEDS: LEVOFLOXACIN 500 MG TAB PO SCH (20:57)
[2018-12-28] MEDS: HEPARIN SODIUM,PORCINE 5,000 UNIT/ML 1 ML VIAL SQ SCH ×3 (00:20→16:48)
[2018-12-28 03:55] LABS: Protein, Total 5.6 g/dL (6.2-8.2)
[2018-12-28 04:32] LABS: Iron(FE) 39 ug/dL (65-175); Rheumatoid Factor 8 IU/mL (0-15)
[2018-12-28 04:51] LABS: HCT 39.3 % (39.0-53.0); MCH 30.4 pg (25.0-35.0); Mean Platelet Volume 5.9; Platelet Count 265 k/uL (150-450); RBC 4.28 m/uL (4.30-5.90); RDW 12.6 % (11.5-15.5); WBC 20.4 k/uL (3.8-10.6)
[2018-12-28 05:05] LABS: African American GFR (CKD) >90 (>60 ml/min/1.73 sqM); Anion Gap 3 mmol/L; Blood Urea Nitrogen 14 mg/dL (9-20); Calcium 8.7 mg/dL (8.4-10.2); Carbon Dioxide 40 mmol/L (22-30); Chloride 90 mmol/L (98-107); Glucose 113 mg/dL (74-99); Potassium 4.5 mmol/L (3.5-5.1); Sodium 133 mmol/L (137-145)
[2018-12-28 05:43] LABS: Ferritin 208.2 ng/mL (22.0-322.0)
[2018-12-28 06:08] LABS: Iron Saturation 15.73 (15.00-50.00)
[2018-12-28 06:12] LABS: Large Platelets Present; Lymphocytes # (M) 6.73 k/uL (1.0-4.8); Monocytes # (M) 1.22 k/uL (0-1.0); Neutrophils % (M) 61 %; Nucleated Red Blood Cells 0 /100 WBC (0-0); Total Cells Counted 100
[2018-12-28 06:13] LABS: Anisocytosis (M) Present
[2018-12-28 06:17] LABS: Polychromasia Present
[2018-12-28 06:18] LABS: Poikilocytosis (M) Present
[2018-12-28] MEDS: CARVEDILOL 3.125 MG TAB PO SCH ×2 (06:51→16:48)
[2018-12-28] MEDS: IPRATROPIUM-ALBUTEROL 3 ML NEB INHALATION PRN ×2 (06:58→15:04)
--- NOTE | 2018-12-28 07:15 | P.PN ---
Subjective Progress Note Date: 12/28/18 On 12/28/2018 I'm seeing this patient for a follow-up. Mental status back to normal. His communicating normally. His sodium level is normalized and the level is 133 today. His white cell count still elevated at 20.4. CAT scan of the chest was done yesterday and that is no clear indication for malignancy. There is some nonspecific mediastinal lymph nodes including a right hilar lymph node measuring 1.2 cm. The patient has lingular and left lower lobe infiltrate and the patient is on Levaquin. He has a congested cough. Unable to bring up much of sputum. We'll attempt to collect a sputum sample. No nausea. No vomiting. No diarrhea. Hemoglobin is at 13.0. Serum iron is at 30 now which i s slightly low. No other significant events overnight. He is not receiving IV fluids. He is on IV Lasix 40 mg every 12 hours. This will be discontinued. Objective - Vital Signs Vital signs: Vital Signs Temp 97.5 F L 12/28/18 04:00 Pulse 93 12/28/18 07:00 Resp 16 12/28/18 07:00 BP 121/67 12/28/18 07:00 Pulse Ox 92 L 12/28/18 07:00 Intake & Output 12/27/18 12/28/18 12/28/18 18:59 06:59 18:59 Intake Total 700 444 Output Total 1915 865 Balance -1215 -421 Weight 99.3 kg Intake: Oral 700 444 Output: Urine 1915 865 Other: Voiding Method Indwelling Catheter Indwelling Catheter - Exam -GENERAL: The patient is awake and alert and the patient is following commands. Mental status improved considerably. Neurologic exam is nonfocal. Head exam was generally normal. There was no scleral icterus or corneal arcus. Mucous membranes were moist. -HEENT: Pupils are round and equally reacting to light. EOMI. No scleral icterus . No conjunctival pallor. Normocephalic, atraumatic. No pharyngeal erythema. No thyromegaly.dry Mucous membranes CARDIOVASCULAR: S1 and S2 present. No murmurs, rubs, or gallops. PULMONARY: Chest is clear to auscultation, no wheezing or crackles. ABDOMEN: Soft, nontender, nondistended, normoactive bowel sounds. No palpable organomegaly. MUSCULOSKELETAL: No joint swelling or deformity. EXTREMITIES: No cyanosis, clubbing, or pedal edema. NEUROLOGICAL: Gross neurological examination did not reveal any focal deficits. -SKIN: No lid but bites and petechiae all over his body, more in the extremities - Labs CBC & Chem 7: 12/28/18 04:26 12/28/18 04:30 Labs: Abnormal Lab Results - Last 24 Hours (Table) 12/27/18 12/27/18 12/27/18 Range/Units 09:22 13:42 19:53 WBC (3.8-10.6) k/uL RBC (4.30-5.90) m/uL Neutrophils # (Manual) (1.3-7.7) k/uL Lymphocytes # (Manual) (1.0-4.8) k/uL Monocytes # (Manual) (0-1.0) k/uL Sodium 129 L 131 L 130 L (137-145) mmol/L Chloride (98-107) mmol/L Carbon Dioxide (22-30) mmol/L Glucose (74-99) mg/dL Iron (65-175) ug/dL Total Protein (PEP) (6.2-8.2) g/dL 12/27/18 12/28/18 12/28/18 Range/Units 19:53 04:26 04:30 WBC 20.4 H (3.8-10.6) k/uL RBC 4.28 L (4.30-5.90) m/uL Neutrophils # (Manual) 12.44 H (1.3-7.7) k/uL Lymphocytes # (Manual) 6.73 H (1.0-4.8) k/uL Monocytes # (Manual) 1.22 H (0-1.0) k/uL Sodium 133 L (137-145) mmol/L Chloride 90 L (98-107) mmol/L Carbon Dioxide 40 H (22-30) mmol/L Glucose 113 H (74-99) mg/dL Iron 39 L (65-175) ug/dL Total Protein (PEP) 5.6 L (6.2-8.2) g/dL Microbiology - Last 24 Hours (Table) 12/23/18 18:28 Blood Culture - Preliminary Blood No Growth after 96 hours Assessment and Plan Plan: #1 hyponatremia on that investigation. The patient's sodium level has gradually improved with 3% hypertonic saline and the sodium has nearly normalized for now. The hypertonic saline was discontinued today. Mental status improved considerably. Sodium level is up to 133. The Lasix will be discontinued. No evidence of any malignancy at this point in time. #2 lingular and left lower lobe pneumonia currently on Levaquin, along with nonspecific mediastinal lymph node largest being 1.2 cm right hilar lymph node. #3 Diabetes mellitus. #4 Bipolar disorder. #5 History of chronic obstructive pulmonary disease. #6 Previous tobacco dependence. #7 History of medication noncompliance. #8 Bed bug infestation. #9 hypertension #10 severe dehydration, improved #11 leukocytosis, improved and her white cell count is down to 20 Plan: Sodium level is normalized. Mental status has normalized. Discontinue the Lasix. Continue rest of the medications including oral Levaquin. Collect sputum sample. Collect sputum for Gram stain and culture. Ambulate. We'll continue to follow.
--- NOTE | 2018-12-28 08:29 | XR ---
EXAMINATION TYPE: XR chest 1V portable DATE OF EXAM: 12/28/2018 COMPARISON: Prior CT 12/27/2018, chest x-ray 12/26/2018 HISTORY: Shortness of breath TECHNIQUE: Single frontal view of the chest is obtained. FINDINGS: There may be some improvement in aeration at the lung bases. There is persistent obscured left hemidiaphragm. Heart remains enlarged. Interstitium is increased. No pneumothorax. There is blun ting of the left costophrenic angle. There is underlying emphysema. IMPRESSION: Some improvement in volume status, aeration within the lungs. Left pleural effusion is s mall and associated atelectasis versus pneumonia. Right pleural effusion not seen.
[2018-12-28] MEDS ORDERED: FUROSEMIDE 10 MG/ML 4 ML VIAL IV SCH (09:00)
[2018-12-28] MEDS: PANTOPRAZOLE 40 MG TABLET PO SCH (09:12)
[2018-12-28] MEDS: FUROSEMIDE 40 MG TAB PO SCH (09:12)
[2018-12-28] MEDS: FLUoxetine HCL 20 MG CAP PO SCH (09:12)
[2018-12-28] MEDS: risperiDONE 1 MG TAB PO SCH ×2 (09:13→20:06)
[2018-12-28 10:21] LABS: Free Kappa Lt Chain Qnt, Serum 3.22 mg/dL (0.33-1.94)
--- NOTE | 2018-12-28 12:47 | CDI ---
Documentation Clarification Form Date: 12/28/2018 12:13:25 PM From: Bertha Mcmillan RN CCDS Admit Date: 12/23/2018 9:31:00 PM Patient Name: Adam Valle Visit Number: [id number] Discharge Date: ATTENTION: The Clinical Documentation Specialists (CDI) and [facility] Coding Staff appreciate your assistance in clarifying documentation. Please respond to the clarification below the line at the bottom and electronically sign. The CDI & [facility] Coding staff will review the response and follow-up if needed. Please note: Queries are made part of the Legal Health Record. If you have any questions, please contact the author of this message via ITS. Dr. Hawley Sheet Per the ED report 12/23/2018 He has had increased shortness of breath History/Risk Factors: 63-year-old male presents to the ED with confusion and shortness of breath. Medical history of Schizophrenia; HTN; Tobacco use: Positive for ongoing everyday tobacco use per Pulmonology consult 12/24/2018 Clinical Indicators: Per your progress note 12/27 Dyspnea is improving Vital signs: 23:00 1445/87 90 11 83% Lung/Breathing assessment: Your Progress Note on 12/27 Chest is clear to auscultation, no wheezing or crackles CXR 12/26/2018 Small bilateral pleural effusions.2.Consolidation which could be compressive atelectasis or pneumonia at the left base.3.Infiltrated along the major fissure on the left is nonspecific.Consider pneumonia within the differential.4.There are multiple bilateral axillary and mediastinal lymph nodes.An enlarged lymph node is within the right hilar region. 5.There is increased density in the peribronchial regions of the right infrahilar region which is nonspecific.Discrete suspicious infectious etiology is not excluded.This is a nidus typical for a mass which would be within the differential. Treatment: Breathing tx Duoneb prn qid; Oxygen 2l up to 5L nasal cannula 12/27/2018 00:00 90% 3l Nc, RR 15; 12/27/2018 11:00 92% 4L nc RR 17 In your professional opinion, can you please clarify if these findings signify one of the following conditions? * Acute Respiratory Insufficiency * Acute Respiratory Failure * Other Diagnosis, please specify * Unable to determine (Last Query Form Revision: November 2018) i don't think pt was in resp failure when i saw him , i saw him without oxygen , he was not in significant dyspnea . thank you AG
--- NOTE | 2018-12-28 15:02 | PN ---
PROGRESS NOTE Patient is seen for followup for hyponatremia. Patient received another dose of Samsca yesterday. His sodium is up to 133 today. He states he is maintained on diuretics which was changed to p.o. this morning. PHYSICAL EXAMINATION: On examination today, blood pressure was 105/65, heart rate 80 per minute, patient is afebrile. Examination of the heart S1, S2. Examination of the lungs, bilateral breath sounds are heard. Abdomen is soft, nontender. Examination of the lower extremities shows no evidence of edema. LOCAL SUPERINTENDENT exam grossly intact. LABS: Show sodium 133, potassium 4.5, BUN 14, creatinine 0.7, hemoglobin 13.0. ASSESSMENT: 1. Hyponatremia, initially hypovolemic most recently hypervolemic, maintained on Lasix status post Samsca. Agree with changing to p.o. Lasix as patient has significant metabolic alkalosis. Repeat sodium next morning, continue to maintain good oral protein intake and maintain fluid restriction. 2. Bipolar disorder. 3. Encephalopathy, mostly related to the hyponatremia, currently improved. 4. Metabolic alkalosis. Expect improvement with decreasing diuretic dosage. PLAN: Repeat sodium next morning. Agree with changing Lasix to p.o. MMODL / IJN: [id number] /
[2018-12-28] MEDS: PIPERACILLIN-TAZOBACTAM 3.375 GM in SODIUM CHLORIDE 0.9% 100 ML IVPB SCH (16:48)
--- NOTE | 2018-12-28 16:53 | P.PN ---
Subjective 63 years old male with past medical history of hypertension, hyperlipidemia, diabetes mellitus, schizophrenia, cigarette smoker who presents because he was found by his family confused, and bad hygiene and covered in bedbugs. And a presentation patient was noticed to be confused however he is following commands, he can tell he was not eating and drinking. Coming to the hospital. He was recently treated for pneumonia however he failed to failure antibiotic. Also patient complaining of from dyspnea and worsening cough. On admission patient was noticed to be severely hyponatremic with sodium level was at 114, so he was admitted to the intensive care unit and treated with 3% saline under close monitoring and guidance by the winchman/crane operator. Patient has chronic leukocytosis, currently 29.9 on admission, down to 22.3. Compartment in October histolytica BC was 22.3 as well. Hemoglobin 12.4 and platelet count 291. Creatinine is normal, liver enzymes elevated. Urinalysis infection. Chest x- ray: No infiltrate. Although the previous chest x-ray from the same date was suspicious for right lower lobe infiltrate. EKG showing normal sinus rhythm at [address]-T changes. On admission. Since 1 dose of Levaquin and 1 dose of ceftriaxone 1 dose of vancomycin and several boluses of normal saline, and currently On oral vancomycin 12/25/2018 patient remains in the ICU, is awake and alert. He denies chest pain or dysp aquiles. He has somewhat calcified but without limp. His dizziness has improved. And he is moving more easily. patient denies abdominal pain or nausea vomiting.. Sodium went up to 120 today.chest x-ray showing CHF with possible bibasilar confluent edema versus pneumonia. Patient will continue with the same therapy with 3% normal saline and bronchodilators with oral Levaquin, also fluid restriction is added. he has no itching and a rash which is improving as well 12/26/2018 Patient still needs close monitoring in the ICU in view of his severely low sodium not improving with 3% saline infusion. Discussed with the ICU staff team. Patient got 1 dose of Lasix today and winchman/crane operator recommended samsca today if Na is not Improving. He is awake and alert though, not in distress including no respiratory distress. His rash in the extremities is improving significantly with therapy. Risks of Vitas looks stable. Sodium 119. WBC is 22.7. Chest x-ray from today showing no significant change with possible congestion plus bibasilar edema versus pneumonia. Pulmonary team of following the case closely. 12/27/2018 Patient is awake and remains in the ICU for sodium correction. His dyspnea is improving. He denies dizziness and his generalized weakness is improving. His sodium is trending up today to 127. Patient has persistent leukocytosis of 21.1, patient is with possible pneumonia on oral Levaquin. However his leukocytosis is going on for a while Since 10/2018, we'll call hematology consult. 12/28/2018 Patient is close to his baseline regarding his mental status serum sodium is 133 today patient is receiving Lasix today along with Aldactone because of hypervolemic hyponatremia patient initially was treated for hypovolemic hyponatremia. Patient did not complete isn't antibiotic therapy as an outpatient which is being continued here. Constitutional: Denied any fatigue denied any fever. Cardio vascular: denied any chest pain, palpitations Gastrointestinal denied any nausea vomiting Pulmonary: Denied any shortness of breath cough Neurologic denied any new focal deficits All inpatient medications were reviewed and appropriate changes in these medications as dictated in the interval history and assessment and plan. Objective - Vital Signs Vital signs: Vital Signs Temp 98 F 12/28/18 12:00 Pulse 103 H 12/28/18 15:19 Resp 18 12/28/18 15:19 BP 127/78 12/28/18 12:00 Pulse Ox 93 L 12/28/18 12:00 Intake & Output 12/27/18 12/28/18 12/28/18 18:59 06:59 18:59 Intake Total 700 444 550 Output Total 1915 865 600 Balance -1215 -421 -50 Weight 99.3 kg Intake: Oral 700 444 550 Output: Urine 1915 865 600 Other: Voiding Method Indwelling Catheter Indwelling Catheter Indwelling Catheter - Exam PHYSICAL EXAMINATION: GENERAL: The patient is alert and oriented x3, not in any acute distress. Well developed, well nourished. HEENT: Pupils are round and equally reacting to light. EOMI. No scleral icterus. No conjunctival pallor. Normocephalic, atraumatic. No pharyngeal erythema. No thyromegaly. CARDIOVASCULAR: S1 and S2 present. No murmurs, rubs, or gallops. PULMONARY: Chest is clear to auscultation, no wheezing or crackles. ABDOMEN: Soft, nontender, nondistended, normoactive bowel sounds. No palpable organomegaly. MUSCULOSKELETAL: No joint swelling or deformity. EXTREMITIES: No cyanosis, clubbing, or pedal edema. NEUROLOGICAL: Gross neurological examination did not reveal any focal deficits. SKIN: No rashes. - Labs CBC & Chem 7: 12/28/18 04:26 12/28/18 04:30 Labs: Abnormal Lab Results - Last 24 Hours (Table) 12/27/18 12/27/18 12/28/18 Range/Units 19:53 19:53 04:26 WBC 20.4 H (3.8-10.6) k/uL RBC 4.28 L (4.30-5.90) m/uL Neutrophils # (Manual) 12.44 H (1.3-7.7) k/uL Lymphocytes # (Manual) 6.73 H (1.0-4.8) k/uL Monocytes # (Manual) 1.22 H (0-1.0) k/uL ESR (0-15) mm/hr Sodium 130 L (137-145) mmol/L Chloride (98-107) mmol/L Carbon Dioxide (22-30) mmol/L Glucose (74-99) mg/dL Iron 39 L (65-175) ug/dL Total Protein (PEP) 5.6 L (6.2-8.2) g/dL Free [place] LC, Quant 3.22 H (0.33-1.94) mg/dL Free [place]ambda LC, Quant 3.82 H (0.57-2.63) mg/dL 12/28/18 12/28/18 Range/Units 04:26 04:30 WBC (3.8-10.6) k/uL RBC (4.30-5.90) m/uL Neutrophils # (Manual) (1.3-7.7) k/uL Lymphocytes # (Manual) (1.0-4.8) k/uL Monocytes # (Manual) (0-1.0) k/uL ESR 46 H (0-15) mm/hr Sodium 133 L (137-145) mmol/L Chloride 90 L (98-107) mmol/L Carbon Dioxide 40 H (22-30) mmol/L Glucose 113 H (74-99) mg/dL Iron (65-175) ug/dL Total Protein (PEP) (6.2-8.2) g/dL Free [place] LC, Quant (0.33-1.94) mg/dL Free Lambda LC, Quant (0.57-2.63) mg/dL Microbiology - Last 24 Hours (Table) 12/23/18 18:28 Blood Culture - Preliminary Blood No Growth after 96 hours Assessment and Plan Plan: Hyponatremia: Initial hypovolemic now hypervolemic hyponatremia patient is on Lasix and Aldactone which is being continued at this time -Left lower lobe pneumonia continue with present antibiotics bilateral basal airway disease suspicious for edema versus pneumonia Leukocytosis 22.7, since 10/2018 History of schizophrenia Nicotine dependence Hypertension Diabetes mellitus2 Hyperlipidemia
[2018-12-28] MEDS: LEVOFLOXACIN 500 MG TAB PO SCH (20:05)
--- NOTE | 2018-12-28 22:37 | P.CONS ---
History of Present Illness - Reason for Consult Consult date: 12/28/18 leukocytosis and antibiotics Requesting physician: Zeke Mccoy - Chief Complaint cough and shortness of breath x few days - History of Present Illness patient is a 63 year male who was recently admitted in this facility and was treated for pneumonia however currently the patient did not took his antibiotics on discharge patient has been brought into the ER at [facility] on 12/23/2018 for evaluation of increasing shortness of breath or cough weakness that has been going on for a few days before the patient was put into the hospital on arrival of the metastatic patient is in he was noticed to be significantly disheveled with multiple scratch irineo and covered with bedbugs patient was complaining of shortness of breath on minimal exertion he did have a cough which has been more treatment intensity and bringing up some green sputum no nausea no vomiting or choking on the football pain or any diarrhea on presentation to the hospital, The patient was noted to be hyponatremic no fever but his white count was elevated 29,000,he did have multiple chest x-ray followed by CT of the chest with evidence of pneumonia patient has been treated with oral Levaquin blood culture had been obtained which are negative so far no sputum collected infection disease was consulted for further recommendation regarding his elevated white count and antibiotic recommendation Review of Systems Positive point has been mentioned in the HPI rest of the systems are negative Past Medical History Past Medical History: Diabetes Mellitus, Hypertension History of Any Multi-Drug Resistant Organisms: None Reported Past Surgical History: Orthopedic Surgery Additional Past Surgical History / Comment(s): sinus sx Past Anesthesia/Blood Transfusion Reactions: No Reported Reaction Past Psychological History: Schizophrenia Smoking Status: Current every day smoker Past Alcohol Use History: None Reported Past Drug Use History: None Reported Medications and Allergies Home Medications Medication Instructions Recorded Confirmed Type FLUoxetine HCL [PROzac] 20 mg PO DAILY #30 cap 07/10/16 12/23/18 Rx cloNIDine HCL [Catapres] 0.1 mg PO BID #60 tab 07/10/16 12/23/18 Rx risperiDONE 3 mg PO BID #60 tablet 07/10/16 12/23/18 Rx Budesonide-Formot 160-4.5 Mcg 2 puff INHALATION RT-BID #1 puff 11/13/18 12/23/18 Rx [Symbicort 160-4.5 Mcg Inhaler] Carvedilol [Coreg] 3.125 mg PO AC-BID 12/23/18 12/23/18 History Ipratropium-Albuterol Nebulize 3 ml INHALATION RT-QID PRN 12/23/18 12/23/18 History [Duoneb 0.5 mg-3 mg/3 ml Soln] Allergies Allergy/AdvReac Type Severity Reaction Status Date / Time Sulfa (Sulfonamide Allergy Rash/Hives Verified 12/23/18 16:46 Antibiotics) Physical Exam Vitals: Vital Signs Temp Pulse Pulse Resp BP Pulse Ox 12/28/18 09:00 82 13 104/67 92 L 12/28/18 08:01 97.8 F 90 17 110/72 92 L 12/28/18 07:12 93 16 12/28/18 07:00 93 16 121/67 92 L 12/28/18 06:59 91 16 12/28/18 06:00 100 15 134/100 91 L 12/28/18 05:00 83 12 120/77 93 L 12/28/18 04:00 97.5 F L 84 89 12 121/94 93 L 12/28/18 03:00 83 12 107/79 92 L 12/28/18 02:00 88 13 137/88 93 L 12/28/18 01:00 78 16 122/86 92 L 12/28/18 00:17 93 17 123/74 92 L 12/28/18 00:00 98 F 90 17 136/89 91 L 12/27/18 23:27 85 13 12/27/18 23:00 80 13 107/69 92 L 12/27/18 22:00 78 13 128/78 92 L 12/27/18 21:00 87 16 115/82 92 L 12/27/18 20:00 98.6 F 97 88 16 105/76 92 L 12/27/18 19:40 100 12/27/18 19:26 100 12/27/18 19:00 107 H 17 124/74 93 L 12/27/18 18:00 101 H 16 120/76 93 L 12/27/18 17:00 79 13 112/77 93 L 12/27/18 16:00 98.1 F 97 23 108/76 94 L 12/27/18 15:29 105 H 12/27/18 15:19 106 H 12/27/18 15:00 115 H 20 112/86 93 L 12/27/18 14:00 98 16 96/70 96 12/27/18 13:00 102 H 18 103/62 94 L 12/27/18 12:00 98.1 F 104 H 12 114/77 96 Intake and Output 12/27/18 12/28/18 12/28/18 22:59 06:59 14:59 Intake Total 250 444 250 Output Total 565 465 200 Balance -315 -21 50 Intake: Oral 250 444 250 Output: Urine 565 465 200 Other: Voiding Method Indwelling Catheter Indwelling Catheter Indwelling Catheter Weight 99.3 kg GENERAL DESCRIPTION: Middle-aged male lying in bed, no distress. No tachypnea or accessory muscle of respiration use. HEENT: Shows Pallor , no scleral icterus. Oral mucous membrane is dry. No pharyngeal erythema or thrush NECK: Trachea central, no thyromegaly. LUNGS: Unlabored breathing. decreased breath sounds at the Base. No wheeze or crackle. HEART: S1, S2, regular rate and rhythm. No loud murmur ABDOMEN: Soft, no tenderness , guarding or rigidity, no organomegaly EXTREMITIES: No edema of feet. SKIN: No rash, no masses palpable. NEUROLOGICAL: The patient is awake, alert, oriented x2, mood and affect normal. Results CBC & Chem 7: 12/28/18 04:26 12/28/18 04:30 Labs: Abnormal Lab Results - Last 24 Hours (Table) 12/27/18 12/27/18 12/27/18 Range/Units 13:42 19:53 19:53 WBC (3.8-10.6) k/uL RBC (4.30-5.90) m/uL Neutrophils # (Manual) (1.3-7.7) k/uL Lymphocytes # (Manual) (1.0-4.8) k/uL Monocytes # (Manual) (0-1.0) k/uL ESR (0-15) mm/hr Sodium 131 L 130 L (137-145) mmol/L Chloride (98-107) mmol/L Carbon Dioxide (22-30) mmol/L Glucose (74-99) mg/dL Iron 39 L (65-175) ug/dL Total Protein (PEP) 5.6 L (6.2-8.2) g/dL Free [place] LC, Quant 3.22 H (0.33-1.94) mg/dL Free Lambda LC, Quant 3.82 H (0.57-2.63) mg/dL 12/28/18 12/28/18 12/28/18 Range/Units 04:26 04:26 04:30 WBC 20.4 H (3.8-10.6) k/uL RBC 4.28 L (4.30-5.90) m/uL Neutrophils # (Manual) 12.44 H (1.3-7.7) k/uL Lymphocytes # (Manual) 6.73 H (1.0-4.8) k/uL Monocytes # (Manual) 1.22 H (0-1.0) k/uL ESR 46 H (0-15) mm/hr Sodium 133 L (137-145) mmol/L Chloride 90 L (98-107) mmol/L Carbon Dioxide 40 H (22-30) mmol/L Glucose 113 H (74-99) mg/dL Iron (65-175) ug/dL Total Protein (PEP) (6.2-8.2) g/dL Free [place] LC, Quant (0.33-1.94) mg/dL Free Lambda LC, Quant (0.57-2.63) mg/dL Microbiology - Last 24 Hours (Table) 12/23/18 18:28 Blood Culture - Preliminary Blood No Growth after 96 hours Assessment and Plan Assessment: 1-patient with leukocytosis which is likely multifactorial in this patient who do have predominantly respiratory symptoms of increased shortness of breath or cough with a CT suggestive of bilateral pneumonia possible gram-negative or nosocomial pathogen in this patient has recently admitted to hospital today for a wound however the patient had completed his antibiotic course and currently with no other obvious focus of infection (1) Pneumonia Current Visit: Yes Status: Acute Code(s): J18.9 - PNEUMONIA, UNSPECIFIED ORGANISM SNOMED Code(s): 466628151 (2) Leukocytosis Current Visit: Yes Status: Chronic Priority: Medium Code(s): D72.829 - ELEVATED WHITE BLOOD CELL COUNT, UNSPECIFIED SNOMED Code(s): 547625008 Plan: 1-we will try to obtain sputum for Gram stain and culture 2-we will add Zosyn 3.375 g every 8 hours We will follow on clinical condition and cultures to further adjust medication if needed Thank you for this consultation will follow this patient with you Time with Patient: Greater than 30
[2018-12-29] MEDS ORDERED: HEPARIN SODIUM,PORCINE 5,000 UNIT/ML 1 ML VIAL ONE (00:30)
[2018-12-29] MEDS: HEPARIN SODIUM,PORCINE 5,000 UNIT/ML 1 ML VIAL SQ SCH ×3 (07:39→15:07)
[2018-12-29] MEDS: PIPERACILLIN-TAZOBACTAM 3.375 GM in SODIUM CHLORIDE 0.9% 100 ML IVPB SCH ×3 (07:39→15:07)
[2018-12-29 07:48] LABS: HCT 38.3 % (39.0-53.0); HGB 12.1 gm/dL (13.0-17.5); MCH 29.8 pg (25.0-35.0); MCHC 31.6 g/dL (31.0-37.0); MCV 94.4 fL (80.0-100.0); Mean Platelet Volume 6.6; Platelet Count 238 k/uL (150-450); RBC 4.05 m/uL (4.30-5.90); RDW 13.1 % (11.5-15.5); WBC 22.5 k/uL (3.8-10.6)
[2018-12-29 08:04] LABS: African American GFR (CKD) >90 (>60 ml/min/1.73 sqM); Anion Gap 7 mmol/L; Blood Urea Nitrogen 17 mg/dL (9-20); Calcium 8.6 mg/dL (8.4-10.2); Carbon Dioxide 32 mmol/L (22-30); Chloride 92 mmol/L (98-107); Glucose 92 mg/dL (74-99); Potassium 4.6 mmol/L (3.5-5.1); Sodium 131 mmol/L (137-145)
[2018-12-29] MEDS: FLUoxetine HCL 20 MG CAP PO SCH (08:04)
[2018-12-29] MEDS: CARVEDILOL 3.125 MG TAB PO SCH ×2 (08:04→17:53)
[2018-12-29] MEDS: PANTOPRAZOLE 40 MG TABLET PO SCH (08:05)
[2018-12-29] MEDS: risperiDONE 1 MG TAB PO SCH ×2 (08:05→20:13)
[2018-12-29] MEDS: FUROSEMIDE 40 MG TAB PO SCH (08:05)
--- NOTE | 2018-12-29 08:16 | XR ---
EXAMINATION TYPE: XR chest 1V portable DATE OF EXAM: 12/29/2018 CLINICAL HISTORY: Difficulty breathing progress study. TECHNIQUE: Single AP portable semiupright view of the chest is obtained. COMPARISON: Chest x-ray from one day earlier and older studies. CT from 2 days ago. FINDINGS: Background Chronic emphysematous change with left basilar opacity redemonstrated. Right l anthony is clear. Cardiac silhouette size is enlarged. Osseous structures are intact. Underlying scoliosi s is present IMPRESSION: Overall stable findings, background chronic emphysematous change and cardiomegaly with persistent small left pleural effusion and associated left basilar atelectasis and/or infiltrate. No significant change from most recent prior studies.
--- NOTE | 2018-12-29 08:31 | P.PN ---
Subjective Progress Note Date: 12/29/18 On 12/29/2018 I'm seeing this patient for a follow-up. I'm glad to report that the sodium level is stable at 133. No altered mentation and the patient is moving all 4 extremities without any limitation. White cell count remains elevated and is undergoing concern for an underlying pneumonia. Based on that, I was consulted and the patient was started on Zosyn in combination with Levaquin. His chest x-ray still showing a left lower lobe/lingular pulmonary infiltrate and is unchanged compared to yesterday. He is afebrile. We are still unable to collect a sputum sample. We are checking him empirically with antibiotics. He is able to sit up on a chair. Note that the CAT scan of the chest also showed some mediastinal lymphadenopathy that was nonspecific the largest being in the right hilum measuring 1.2 cm. Otherwise, he still has a Hebert catheter in place scan be discontinued. His hemoglobin is at 13.0 from yesterday. Objective - Vital Signs Vital signs: Vital Signs Temp 97.8 F 12/29/18 07:45 Pulse 94 12/29/18 07:45 Resp 13 12/29/18 07:45 BP 113/76 12/29/18 07:45 Pulse Ox 91 L 12/29/18 07:45 Intake & Output 12/28/18 12/29/18 12/29/18 18:59 06:59 18:59 Intake Total 550 100 Output Total 600 400 235 Balance -50 -400 -135 Intake: IV 100 Piperacillin-Tazobactam 3 100 .375 gm In Sodium Chloride 0.9% 100 ml @ 25 mls/hr IVPB Q8HR [facility] Rx# :[id number] Oral 550 Output: Urine 600 400 235 Other: Voiding Method Indwelling Catheter Indwelling Catheter - Exam -GENERAL: The patient is awake and alert and the patient is following commands. Mental status improved considerably. Neurologic exam is nonfocal. Head exam was generally normal. There was no scleral icterus or corneal arcus. Mucous membranes were moist. -HEENT: Pupils are round and equally reacting to light. EOMI. No scleral icterus. No conjunctival pallor. Normocephalic, atraumatic. No pharyngeal erythema. No thyromegaly.dry Mucous membranes CARDIOVASCULAR: S1 and S2 present. No murmurs, rubs, or gallops. PULMONARY: Chest is clear to auscultation, no wheezing or crackles. ABDOMEN: Soft, nontender, nondistended, normoactive bowel sounds. No palpable organomegaly. MUSCULOSKELETAL: No joint swelling or deformity. EXTREMITIES: No cyanosis, clubbing, or pedal edema. NEUROLOGICAL: Gross neurological examination did not reveal any focal deficits. -SKIN: No lid but bites and petechiae all over his body, more in the extremities - Labs CBC & Chem 7: 12/28/18 04:26 12/28/18 04:30 Labs: Abnormal Lab Results - Last 24 Hours (Table) 12/27/18 12/28/18 Range/Units 19:53 04:26 ESR 46 H (0-15) mm/hr Free [place] LC, Quant 3.22 H (0.33-1.94) mg/dL Free [place] LC, Quant 3.82 H (0.57-2.63) mg/dL Microbiology - Last 24 Hours (Table) 12/23/18 18:28 Blood Culture - Preliminary Blood No Growth after 120 hours Assessment and Plan Plan: #1 hyponatremia recovered and the patient's sodium level is at 133 on today's evaluation. His on fluid restriction and is also taking Lasix 40 mg by mouth daily. #2 lingular and left lower lobe pneumonia currently on Levaquin, along with nonspecific mediastinal lymph node largest being 1.2 cm right hilar lymph node. Current antibiotic coverage including a combination of Zosyn and Levaquin. #3 Diabetes mellitus. #4 Bipolar disorder. #5 History of chronic obstructive pulmonary disease. #6 Previous tobacco dependence. #7 History of medication noncompliance. #8 Bed bug infestation. #9 hypertension #10 severe dehydration, improved #11 leukocytosis, improved and her white cell count is down to 20 #12 COPD #13 acute hypoxic respiratory failure on 2 L of oxygen by nasal cannula. Plan: [place] same antibiotic coverage. Chest x-ray is stable without any new changes. There is still a left lower lobe consolidation the patient was a constant elevated at 20.0. We're going to continue same antibiotic coverage. Proceed with incentive spirometer. Increased mobility. His continue the Hebert catheter. Chest and the patient to a medical surgical floor. I'm going to give this patient 24 hours and repeated x-ray. If the left lower lobe findings are unchanged, we'll do a bronchoscopy and lavage for microbial diagnoses. Continue same antibiotic coverage for now.
--- NOTE | 2018-12-29 10:25 | P.PN ---
Subjective Patient is seen in follow-up for hyponatremia. Sodium level 131 this morning. Oral intake is gradually improving. No vomiting or diarrhea. Currently maintained on oral Lasix. He also received 1 dose of Samsca. Vital signs are stable. General: The patient appeared well nourished and normally developed. HEENT: Head exam is unremarkable. Neck is without jugular venous distension. LUNGS: Breath sounds decreased. HEART: Rate and Rhythm are regular. First and second heart sounds normal. No murmurs, rubs or gallops. ABDOMEN: Abdominal exam reveals normal bowel sounds. Non-tender and non- distended. No evidence of peritonitis. EXTREMITITES: No clubbing, cyanosis, or edema. Objective - Vital Signs Vital signs: Vital Signs Temp 97.8 F 12/29/18 07:45 Pulse 94 12/29/18 07:45 Resp 13 12/29/18 07:45 BP 113/76 12/29/18 07:45 Pulse Ox 91 L 12/29/18 07:45 Intake & Output 12/28/18 12/29/18 12/29/18 18:59 06:59 18:59 Intake Total 550 100 Output Total 600 400 235 Balance -50 -400 -135 Intake: IV 100 Piperacillin-Tazobactam 3 100 .375 gm In Sodium Chloride 0.9% 100 ml @ 25 mls/hr IVPB Q8HR [facility] Rx# :[id number] Oral 550 Output: Urine 600 400 235 Other: Voiding Method Indwelling Catheter Indwelling Catheter - Labs CBC & Chem 7: 12/28/18 04:26 12/28/18 04:30 Labs: Abnormal Lab Results - Last 24 Hours (Table) 12/27/18 12/28/18 Range/Units 19:53 04:26 ESR 46 H (0-15) mm/hr Free [place] LC, Quant 3.22 H (0.33-1.94) mg/dL Free [place] LC, Quant 3.82 H (0.57-2.63) mg/dL Microbiology - Last 24 Hours (Table) 12/23/18 18:28 Blood Culture - Preliminary Blood No Growth after 120 hours Assessment and Plan Plan: Assessment: 1. Hyponatremia. Hypervolemic. Sodium level 131 this morning. Urine sodium 22 and urine osmolality 449 on admission. Status post Samsca. Also on oral Lasix. Patient was on Prozac which can induce SIADH. TSH normal. 2. Benign hypertension. Controlled. 3. Pneumonia maintained on antibiotics. 4. History of schizophrenia. 5. Metabolic alkalosis secondary to diuresis. Plan: Repeat Samsca 15 mg once today. Maintain Lasix 40 mg orally once daily. Follow-up morning labs. Monitor bicarb. Encouraged oral intake.
[2018-12-29] MEDS ORDERED: TOLVAPTAN 15 MG 1/2 TABLET PO ONE (12:00)
[2018-12-29] MEDS: IPRATROPIUM-ALBUTEROL 3 ML NEB INHALATION PRN ×3 (12:00→20:18)
--- NOTE | 2018-12-29 13:25 | CDI ---
Documentation Clarification Form Date: 12/29/2018 12:52:45 PM From: Bertha Mcmillan RN CCDS Admit Date: 12/23/2018 9:31:00 PM Patient Name: Adam Valle Visit Number: [id number] Discharge Date: ATTENTION: The Clinical Documentation Specialists (CDI) and [facility] Coding Staff appreciate your assistance in clarifying documentation. Please respond to the clarification below the line at the bottom and electronically sign. The CDI & [facility] Coding staff will review the response and follow-up if needed. Please note: Queries are made part of the Legal Health Record. If you have any questions, please contact the author of this message via ITS. Dr. Joshua Carreno Chest x-ray showing CHF with possible bibasilar confluent edema vs Pneumonia has been documented in your progress notes starting 12/28/2018 History/Risk Factors: 63-year-old male presents to the ED for confusion. Medical History DM, HTN Clinical Indicators: Home Med Coreg 3.125 bid Lab findings: 12/23/18 BNP 213; Na 114; Radiology findings: CXR 12/25 Findings consistent with heart failure # confluent bibasilar airspace disease representing confluent edema or superimposed Pneumonia CXR 12/28 some improvement in volume status, aeration within the lungs. Left pleural effusion is small and associated atelectasis vs pneumonia. Right pleural effusion not seen. Vital Signs: 12/25/2018 141/85 84 15 93% 3L Other Clinical Indicators: Treatment: Coreg 3.125 po bid; 12/25/18 Lasix 20mg ivp x1; 12/26/18 40mg ivp x1 then Q 12 hrs; 12/28/18 40mg po daily In your professional opinion, can you please clarify the diagnosis? * CHF ruled out * CHF type and acuity * Other, please specify * Unable to determine (Last Revision: June 2017) No CHF MTDD
--- NOTE | 2018-12-29 14:32 | P.PN ---
Subjective 63 years old male with past medical history of hypertension, hyperlipidemia, diabetes mellitus, schizophrenia, cigarette smoker who presents because he was found by his family confused, and bad hygiene and covered in bedbugs. And a presentation patient was noticed to be confused however he is following commands, he can tell he was not eating and drinking. Coming to the hospital. He was recently treated for pneumonia however he failed to failure antibiotic. Also patient complaining of from dyspnea and worsening cough. On admission patient was noticed to be severely hyponatremic with sodium level was at 114, so he was admitted to the intensive care unit and treated with 3% saline under close monitoring and guidance by the assistant film editor. Patient has chronic leukocytosis, currently 29.9 on admission, down to 22.3. Compartment in October histolytica BC was 22.3 as well. Hemoglobin 12.4 and platelet count 291. Creatinine is normal, liver enzymes elevated. Urinalysis infection. Chest x- ray: No infiltrate. Although the previous chest x-ray from the same date was suspicious for right lower lobe infiltrate. EKG showing normal sinus rhythm at [address]-T changes. On admission. Since 1 dose of Levaquin and 1 dose of ceftriaxone 1 dose of vancomycin and several boluses of normal saline, and currently On oral vancomycin 12/25/2018 patient remains in the ICU, is awake and alert. He denies chest pain or dysp aquiles. He has somewhat calcified but without limp. His dizziness has improved. And he is moving more easily. patient denies abdominal pain or nausea vomiting.. Sodium went up to 120 today.chest x-ray showing CHF with possible bibasilar confluent edema versus pneumonia. Patient will continue with the same therapy with 3% normal saline and bronchodilators with oral Levaquin, also fluid restriction is added. he has no itching and a rash which is improving as well 12/26/2018 Patient still needs close monitoring in the ICU in view of his severely low sodium not improving with 3% saline infusion. Discussed with the ICU staff team. Patient got 1 dose of Lasix today and assistant film editor recommended samsca today if Na is not Improving. He is awake and alert though, not in distress including no respiratory distress. His rash in the extremities is improving significantly with therapy. Risks of Vitas looks stable. Sodium 119. WBC is 22.7. Chest x-ray from today showing no significant change with possible congestion plus bibasilar edema versus pneumonia. Pulmonary team of following the case closely. 12/27/2018 Patient is awake and remains in the ICU for sodium correction. His dyspnea is improving. He denies dizziness and his generalized weakness is improving. His sodium is trending up today to 127. Patient has persistent leukocytosis of 21.1, patient is with possible pneumonia on oral Levaquin. However his leukocytosis is going on for a while Since 10/2018, we'll call hematology consult. 12/28/2018 Patient is close to his baseline regarding his mental status serum sodium is 133 today patient is receiving Lasix today along with Aldactone because of hypervolemic hyponatremia patient initially was treated for hypovolemic hyponatremia. Patient did not complete isn't antibiotic therapy as an outpatient which is being continued here. 12/28/2018 Patient white blood cell count remains 20,000. Chest x-ray did not show any significant change patient remains on broad-spectrum antibiotics. Pulmonology is planning on bronchoscopy there is no improvement in his pneumonia. No fevers at this time. Patient does have wheeze will start her on Pulmicort Constitutional: Denied any fatigue denied any fever. Cardio vascular: denied any chest pain, palpitations Gastrointestinal denied any nausea vomiting Pulmonary: Denied any shortness of breath cough Neurologic denied any new focal deficits All inpatient medications were reviewed and appropriate changes in these medica tions as dictated in the interval history and assessment and plan. Objective - Vital Signs Vital signs: Vital Signs Temp 97.8 F 12/29/18 07:45 Pulse 84 12/29/18 12:09 Resp 13 12/29/18 07:45 BP 113/76 12/29/18 07:45 Pulse Ox 91 L 12/29/18 07:45 Intake & Output 12/28/18 12/29/18 12/29/18 18:59 06:59 18:59 Intake Total 550 440 Output Total 600 400 960 Balance -50 -400 -520 Intake: IV 100 Piperacillin-Tazobactam 3 100 .375 gm In Sodium Chloride 0.9% 100 ml @ 25 mls/hr IVPB Q8HR [facility] Rx# :[id number] Oral 550 340 Output: Urine 600 400 960 Other: Voiding Method Indwelling Catheter Indwelling Catheter - Exam PHYSICAL EXAMINATION: GENERAL: The patient is alert and oriented x3, not in any acute distress. Well developed, well nourished. HEENT: Pupils are round and equally reacting to light. EOMI. No scleral icterus. No conjunctival pallor. Normocephalic, atraumatic. No pharyngeal erythema. No thyromegaly. CARDIOVASCULAR: S1 and S2 present. No murmurs, rubs, or gallops. PULMONARY: Chest is clear to auscultation, no wheezing or crackles. ABDOMEN: Soft, nontender, nondistended, normoactive bowel sounds. No palpable organomegaly. MUSCULOSKELETAL: No joint swelling or deformity. EXTREMITIES: No cyanosis, clubbing, or pedal edema. NEUROLOGICAL: Gross neurological examination did not reveal any focal deficits. SKIN: No rashes. - Labs CBC & Chem 7: 12/29/18 03:54 12/29/18 03:54 Labs: Abnormal Lab Results - Last 24 Hours (Table) 12/29/18 12/29/18 Range/Units 03:54 03:54 WBC 22.5 H (3.8-10.6) k/uL RBC 4.05 L (4.30-5.90) m/uL Hgb 12.1 L (13.0-17.5) gm/dL Hct 38.3 L (39.0-53.0) % Sodium 131 L (137-145) mmol/L Chloride 92 L (98-107) mmol/L Carbon Dioxide 32 H (22-30) mmol/L Microbiology - Last 24 Hours (Table) 12/23/18 18:28 Blood Culture - Preliminary Blood No Growth after 120 hours Assessment and Plan Plan: Hyponatremia: Initial hypovolemic now hypervolemic hyponatremia patient is on Lasix which is being continued at this time -Left lower lobe pneumonia continue with levofloxacin and Zosyn as per pulmonary -COPD with mild acute exacerbation: Patient will be started on inhaled steroids continue with inhalational treatments bilateral basal airway disease suspicious for edema versus pneumonia Leukocytosis 22.7, since 10/2018 History of schizophrenia Nicotine dependence Hypertension Diabetes mellitus2 Hyperlipidemia
[2018-12-29] MEDS: NYSTATIN 100,000 UNIT/ML SUSP 500,000 UNIT/5 ML CUP PO SCH ×2 (17:53→20:13)
[2018-12-29] MEDS: LEVOFLOXACIN 500 MG TAB PO SCH (20:13)
[2018-12-29] MEDS: BUDESONIDE 0.5 MG/2 ML NEBU INHALATION SCH (20:18)
--- NOTE | 2018-12-29 22:21 | PN ---
PROGRESS NOTE DATE OF SERVICE: 12/29/2018. REASON FOR FOLLOWUP: Pneumonia and elevated white count. INTERVAL HISTORY: The patient is currently afebrile. Patient has been breathing comfortably. Denies having any chest pain. Did have cough. Not bringing up any sputum. No nausea, no vomiting. No abdominal pain. No diarrhea. PHYSICAL EXAMINATION: Blood pressure 130/85 with a pulse of 90, temperature 98.3. He is 97% on 2 L nasal cannula. General description is a middle aged male lying in bed in no distress. HEENT: Shows oral thrush. LUNGS: Unlabored breathing. Decreased breath sounds at the bases. No wheeze. Heart S1, S2. Regular rate and rhythm. ABDOMEN: Soft, no tenderness. LABS: Hemoglobin is 12.1, white count 2.5. BUN of 17, creatinine 0.79. Blood culture has been negative. No sputum was collected. DIAGNOSTIC IMPRESSION AND PLAN: 1. Patient admitted to the hospital with increased shortness of breath and cough with evidence of pneumonia on the CT. Will try to obtain a sputum and pulmonary may consider a bronchoscopy if he does not have any improvement. At this point, culture will be needed. 2. Patient with oral flush, we will add nystatin swish and swallow and monitor clinical course closely. MMODL / IJN: [id number] /
[2018-12-30] MEDS: PIPERACILLIN-TAZOBACTAM 3.375 GM in SODIUM CHLORIDE 0.9% 100 ML IVPB SCH ×2 (00:16→07:49)
[2018-12-30] MEDS: HEPARIN SODIUM,PORCINE 5,000 UNIT/ML 1 ML VIAL SQ SCH ×2 (00:16→07:49)
[2018-12-30 05:28] LABS: HCT 39.4 % (39.0-53.0); MCH 28.8 pg (25.0-35.0); MCHC 30.5 g/dL (31.0-37.0); MCV 94.6 fL (80.0-100.0); Mean Platelet Volume 6.7; Platelet Count 255 k/uL (150-450); RBC 4.17 m/uL (4.30-5.90); RDW 12.9 % (11.5-15.5); WBC 15.9 k/uL (3.8-10.6)
[2018-12-30 05:38] LABS: Lymphocytes # (M) 7.63 k/uL (1.0-4.8); Monocytes # (M) 1.11 k/uL (0-1.0); Neutrophils % (M) 45 %; Nucleated Red Blood Cells 0 /100 WBC (0-0); Total Cells Counted 100
[2018-12-30 06:14] LABS: African American GFR (CKD) >90 (>60 ml/min/1.73 sqM); Anion Gap 4 mmol/L; Blood Urea Nitrogen 19 mg/dL (9-20); Calcium 8.5 mg/dL (8.4-10.2); Carbon Dioxide 35 mmol/L (22-30); Chloride 96 mmol/L (98-107); Glucose 96 mg/dL (74-99); Potassium 4.8 mmol/L (3.5-5.1); Sodium 135 mmol/L (137-145)
[2018-12-30] MEDS: CARVEDILOL 3.125 MG TAB PO SCH (06:18)
[2018-12-30] MEDS: IPRATROPIUM-ALBUTEROL 3 ML NEB INHALATION PRN ×2 (08:03→11:34)
[2018-12-30] MEDS: BUDESONIDE 0.5 MG/2 ML NEBU INHALATION SCH (08:03)
--- NOTE | 2018-12-30 08:46 | XR ---
EXAMINATION TYPE: XR chest 1V portable DATE OF EXAM: 12/30/2018 COMPARISON: 12/29/2018 INDICATION: Follow-up previous abnormal chest TECHNIQUE: Single frontal view of the chest is obtained. FINDINGS: The heart size is normal. The pulmonary vasculature is normal. There is a small left pleural effusion which appears stable. Lungs are otherwise clear. IMPRESSION: 1. Stable small pleural effusion with adjacent compressive atelectasis.
[2018-12-30 08:54] VITALS: BP 128/90; RESP 16; TEMP 97.7
[2018-12-30] MEDS: PANTOPRAZOLE 40 MG TABLET PO SCH (08:58)
[2018-12-30] MEDS: FLUoxetine HCL 20 MG CAP PO SCH (08:58)
[2018-12-30] MEDS: FUROSEMIDE 40 MG TAB PO SCH (08:58)
[2018-12-30] MEDS: NYSTATIN 100,000 UNIT/ML SUSP 500,000 UNIT/5 ML CUP PO SCH ×2 (08:58→12:29)
[2018-12-30] MEDS: risperiDONE 1 MG TAB PO SCH (08:58)
[2018-12-30 09:29] LABS: Methylmalonic Acid 0.8 umol/L (<0.40)
[2018-12-30 11:47] VITALS: PULSE 85
--- NOTE | 2018-12-30 13:50 | P.DS ---
Providers Date of admission: 12/23/18 21:31 Attending physician: Clark Owens MD Consults: 12/23/18 21:31 Consult Physician Routine Consulting Provider: Jose Syed Consult Reason/Comments: HCAP, acute hyponatremia Do you want consulting provider notified?: Already Contacted Consult Physician Stat Consulting Provider: Felicity Garcia Consult Reason/Comments: acute hyponatremia Do you want consulting provider notified?: Already Contacted 12/27/18 09:32 Consult Physician Urgent Consulting Provider: Zeke Mccoy Consult Reason/Comments: Persistent leukocytosis Do you want consulting provider notified?: Yes 12/27/18 18:36 Consult Physician Routine Consulting Provider: Gerard Reddy Consult Reason/Comments: elevated differential, parasite infestation on admit Do you want consulting provider notified?: Yes, Notify in am Primary care physician: [facility] Course: 63 years old male with past medical history of hypertension, hyperlipidemia, diabetes mellitus, schizophrenia, cigarette smoker who presents because he was found by his family confused, and bad hygiene and covered in bedbugs. And a presentation patient was noticed to be confused however he is following command s, he can tell he was not eating and drinking. Coming to the hospital. He was recently treated for pneumonia however he failed to failure antibiotic. Also patient complaining of from dyspnea and worsening cough. On admission patient was noticed to be severely hyponatremic with sodium level was at 114, so he was admitted to the intensive care unit and treated with 3% saline under close monitoring and guidance by the antique automobiles repairer. Patient has chronic leukocytosis, currently 29.9 on admission, down to 22.3. Compartment in October histolytica BC was 22.3 as well. Hemoglobin 12.4 and platelet count 291. Creatinine is normal, liver enzymes elevated. Urinalysis infection. Chest x-ray: No infiltrate. Although the previous chest x-ray from the same date was suspicious for right lower lobe infiltrate. EKG showing normal sinus rhythm at [address]-T changes. On admission. Since 1 dose of Levaquin and 1 dose of ceftriaxone 1 dose of vancomycin and several boluses of normal saline, and currently On oral vancomycin 12/25/2018 patient remains in the ICU, is awake and alert. He denies chest pain or dyspnea. He has somewhat calcified but without limp. His dizziness has improved. And he is moving more easily. patient denies abdominal pain or nausea vomiting.. Sodium went up to 120 today.chest x-ray showing CHF with possible bibasilar confluent edema versus pneumonia. Patient will continue with the same therapy with 3% normal saline and bronchodilators with oral Levaquin, also fluid restriction is added. he has no itching and a rash which is improving as well 12/26/2018 Patient still needs close monitoring in the ICU in view of his severely low sodium not improving with 3% saline infusion. Discussed with the ICU staff team. Patient got 1 dose of Lasix today and antique automobiles repairer recommended samsca today if Na is not Improving. He is awake and alert though, not in distress including no respiratory distress. His rash in the extremities is improving significantly with therapy. Risks of Vitas looks stable. Sodium 119. WBC is 22.7. Chest x-ray from today showing no significant change with possible congestion plus bibasilar edema versus pneumonia. Pulmonary team of following the case closely. 12/27/2018 Patient is awake and remains in the ICU for sodium correction. His dyspnea is improving. He denies dizziness and his generalized weakness is improving. His sodium is trending up today to 127. Patient has persistent leukocytosis of 21.1, patient is with possible pneumonia on oral Levaquin. However his leukocytosis is going on for a while Since 10/2018, we'll call hematology consult. 12/28/2018 Patient is close to his baseline regarding his mental status serum sodium is 133 today patient is receiving Lasix today along with Aldactone because of hypervolemic hyponatremia patient initially was treated for hypovolemic hyponatremia. Patient did not complete isn't antibiotic therapy as an outpatient which is being continued here. 12/29/2018 Patient white blood cell count remains 20,000. Chest x-ray did not show any significant change patient remains on broad-spectrum antibiotics. Pulmonology is planning on bronchoscopy there is no improvement in his pneumonia. No fevers at this time. Patient does have wheeze will start her on Pulmicort 12/30/2018 Patient has significant improvement in white blood cell count as well as improvement in the chest x-ray findings along with the improvement in fevers. Serum sodium improved. Patient will be discharged today. Discussed nephrology the recommending to 40 mg of Lasix daily and patient will be discharged on that too and follow-up with nephrology as an outpatient PHYSICAL EXAMINATION: GENERAL: The patient is alert and oriented x3, not in any acute distress. Well developed, well nourished. HEENT: Pupils are round and equally reacting to light. EOMI. No scleral icterus. No conjunctival pallor. Normocephalic, atraumatic. No pharyngeal erythema. No thyromegaly. CARDIOVASCULAR: S1 and S2 present. No murmurs, rubs, or gallops. PULMONARY: Chest is clear to auscultation, no wheezing or crackles. ABDOMEN: Soft, nontender, nondistended, normoactive bowel sounds. No palpable organomegaly. MUSCULOSKELETAL: No joint swelling or deformity. EXTREMITIES: No cyanosis, clubbing, or pedal edema. NEUROLOGICAL: Gross neurological examination did not reveal any focal deficits. SKIN: No rashes. Assessment and Plan Plan: Hyponatremia: Initial hypovolemic now hypervolemic hyponatremia patient is on Lasix which is being continued and his serum sodium did improve to 135 -Left lower lobe pneumonia patient is being discharged on moxifloxacin as per infectious disease -COPD with mild acute exacerbation: Patient will be started on inhaled steroids continue with inhalational treatments Community acquired pneumonia History of schizophrenia Nicotine dependence Hypertension Diabetes mellitus2 Hyperlipidemia Patient Condition at Discharge: Serious Plan - Discharge Summary Discharge Rx Participant: No New Discharge Prescriptions: New Nystatin 100,000 Unit/ml Susp [Mycostatin Oral Susp] 500,000 unit PO QID #30 cup Moxifloxacin HCl [Avelox] 400 mg PO DAILY #5 tablet Continue risperiDONE 3 mg PO BID #60 tablet FLUoxetine HCL [PROzac] 20 mg PO DAILY #30 cap Budesonide-Formot 160-4.5 Mcg [Symbicort 160-4.5 Mcg Inhaler] 2 puff INHALATION RT-BID #1 puff Ipratropium-Albuterol Nebulize [Duoneb 0.5 mg-3 mg/3 ml Soln] 3 ml INHALATION RT-QID PRN PRN Reason: Shortness Of Breath Changed Carvedilol [Coreg] 6.25 mg PO AC-BID #0 Discontinued cloNIDine HCL [Catapres] 0.1 mg PO BID #60 tab Discharge Medication List FLUoxetine HCL [PROzac] 20 mg PO DAILY #30 cap 07/10/16 [Rx] risperiDONE 3 mg PO BID #60 tablet 07/10/16 [Rx] Budesonide-Formot 160-4.5 Mcg [Symbicort 160-4.5 Mcg Inhaler] 2 puff INHALATION RT-BID #1 puff 11/13/18 [Rx] Ipratropium-Albuterol Nebulize [Duoneb 0.5 mg-3 mg/3 ml Soln] 3 ml INHALATION RT-QID PRN 12/23/18 [History] Carvedilol [Coreg] 6.25 mg PO AC-BID #0 12/30/18 [Rx] Moxifloxacin HCl [Avelox] 400 mg PO DAILY #5 tablet 12/30/18 [Rx] Nystatin 100,000 Unit/ml Susp [Mycostatin Oral Susp] 500,000 unit PO QID #30 cup 12/30/18 [Rx] Follow up Appointment(s)/Referral(s): Zach Roque MD [Primary Care Provider] - 3 Days Gerard Reddy MD [STAFF PHYSICIAN] - 1 Week Kareen Rajput MD [STAFF PHYSICIAN] - 1 Week Activity/Diet/Wound Care/Special Instructions: 1. Call #[phone] to see what resources you qualify for in the community
[2018-12-30 14:12] LABS: Albumin 2.64 g/dL (3.80-4.90); Gamma Globulin 0.91 g/dL (0.70-1.50)
--- NOTE | 2018-12-30 14:36 | P.PN ---
Subjective Progress Note Date: 12/30/18 On 12/30/2018, patient is doing well. Sodium levels are stable. White cell count is improving. Chest x-ray shows a stable left lower lobe pulmonary infiltrates. Nevertheless, the patient is looking well. No significant cough. He has limited sputum which is unable to bring it up. No fever. No chills. He remains on a broad-spectrum antibiotic coverage including a combination of Zosyn and Levaquin. He is able to sit up on a chair. No nausea. No vomiting. No diarrhea. No abdominal pain. No other complaints otherwise for now. Discharge planning is in progress. Objective - Vital Signs Vital signs: Vital Signs Temp 97.7 F 12/30/18 08:00 Pulse 85 12/30/18 11:46 Resp 16 12/30/18 08:00 BP 128/90 12/30/18 08:00 Pulse Ox 97 12/30/18 08:00 Intake & Output 12/29/18 12/30/18 12/30/18 18:59 06:59 18:59 Intake Total 540 340 Output Total 1385 1150 Balance -845 -810 Weight 100 kg Intake: IV 200 100 Piperacillin-Tazobactam 3 200 100 .375 gm In Sodium Chloride 0.9% 100 ml @ 25 mls/hr IVPB Q8HR [facility] Rx# :[id number] Oral 340 240 Output: Urine 1385 1150 Other: Voiding Method Indwelling Catheter # Bowel Movements 1 - Exam -GENERAL: The patient is awake and alert and the patient is following commands. Mental status improved considerably. Neurologic exam is nonfocal. Head exam was generally normal. There was no scleral icterus or corneal arcus. Mucous membranes were moist. -HEENT: Pupils are round and equally reacting to light. EOMI. No scleral icterus. No conjunctival pallor. Normocephalic, atraumatic. No pharyngeal erythema. No thyromegaly.dry Mucous membranes CARDIOVASCULAR: S1 and S2 present. No murmurs, rubs, or gallops. PULMONARY: Chest is clear to auscultation, no wheezing or crackles. ABDOMEN: Soft, nontender, nondistended, normoactive bowel sounds. No palpable organomegaly. MUSCULOSKELETAL: No joint swelling or deformity. EXTREMITIES: No cyanosis, clubbing, or pedal edema. NEUROLOGICAL: Gross neurological examination did not reveal any focal deficits. -SKIN: No lid but bites and petechiae all over his body, more in the extremities - Labs CBC & Chem 7: 12/30/18 04:28 12/30/18 04:28 Labs: Abnormal Lab Results - Last 24 Hours (Table) 12/27/18 12/27/18 12/30/18 Range/Units 19:53 19:53 04:28 WBC (3.8-10.6) k/uL RBC (4.30-5.90) m/uL Hgb (13.0-17.5) gm/dL MCHC (31.0-37.0) g/dL Lymphocytes # (Manual) (1.0-4.8) k/uL Monocytes # (Manual) (0-1.0) k/uL Sodium 135 L (137-145) mmol/L Chloride 96 L (98-107) mmol/L Carbon Dioxide 35 H (22-30) mmol/L Albumin (PEP) 2.64 L (3.80-4.90) g/dL Tvska-7-Xsrythbls 0.51 H (0.10-0.40) g/dL Methylmalonic Acid 0.80 H (<0.40) umol/L 12/30/18 Range/Units 04:28 WBC 15.9 H (3.8-10.6) k/uL RBC 4.17 L (4.30-5.90) m/uL Hgb 12.0 L (13.0-17.5) gm/dL MCHC 30.5 L (31.0-37.0) g/dL Lymphocytes # (Manual) 7.63 H (1.0-4.8) k/uL Monocytes # (Manual) 1.11 H (0-1.0) k/uL Sodium (137-145) mmol/L Chloride (98-107) mmol/L Carbon Dioxide (22-30) mmol/L Albumin (PEP) (3.80-4.90) g/dL Clsff-5-Olzytlyzy (0.10-0.40) g/dL Methylmalonic Acid (<0.40) umol/L Microbiology - Last 24 Hours (Table) 12/23/18 18:28 Blood Culture - Final Blood No Growth after 144 hours Assessment and Plan Plan: #1 hyponatremia recovered and the sodium normalized #2 lingular and left lower lobe pneumonia currently on Levaquin, along with nonspecific mediastinal lymph node largest being 1.2 cm right hilar lymph node. Current antibiotic coverage including a combination of Zosyn and Levaquin. #3 Diabetes mellitus. #4 Bipolar disorder. #5 History of chronic obstructive pulmonary disease. #6 Previous tobacco dependence. #7 History of medication noncompliance. #8 Bed bug infestation. #9 hypertension #10 severe dehydration, improved #11 leukocytosis, improving and the white cell count is on the decline #12 COPD #13 acute hypoxic respiratory failure on 2 L of oxygen by nasal cannula. Plan: The patient is looking good. Is ambulating. I do not see the need for bronchoscopy. His white cell count is improved. His sodium levels are stable. We'll discuss with IV outpatient antibiotic coverage and the patient can be moved out of the intensive care unit and discharge planning is in progress. He will likely go to [facility].
--- NOTE | 2018-12-30 18:16 | PN ---
PROGRESS NOTE DATE OF SERVICE: 12/30/2018. REASON FOR FOLLOWUP: 1. Pneumonia. 2. Thrush. INTERVAL HISTORY: The patient is currently afebrile. Patient has been breathing comfortably. Denies having any chest pain. Occasional cough. No nausea, no vomiting. No abdominal pain. No diarrhea. PHYSICAL EXAMINATION: Blood pressure 128/90 with a pulse of 80, temperature 97.7. He is 97% on 2 L nasal cannula. General description is a middle-aged male up in the bed in no distress. Respiratory system: Unlabored breathing with decreased breath sounds in the bases. No wheeze. Heart S1, S2. Regular rate and rhythm. ABDOMEN: Soft, no tenderness. EXTREMITIES: No edema of the feet. LABS: Hemoglobin is 12, white count 15.9, BUN of 19, creatinine 0.80. DIAGNOSTIC IMPRESSION AND PLAN: 1. Patient with leukocytosis which is likely multifactorial. Possible element of pneumonia and did have a component of thrush. The patient seemed to have shown clinical improvement hence we will finish therapy with oral Avelox 400 daily for 5 days. 2. Oral thrush. Nystatin swish and swallow for 1 week. Prescription was sent to the pharmacy. MMODL / IJN: [id number] /
--- NOTE | 2018-12-30 18:19 | PN ---
PROGRESS NOTE The patient is seen for followup for hyponatremia. He is currently maintained on Lasix. He has been doing well. Sodium is up to 135. There are plans for possible discharge. PHYSICAL EXAMINATION: Blood pressure this morning 128/90, heart rate 80 per minute. He is afebrile. Examination of the heart S1, S2. Examination of the lungs, bilateral breath sounds are heard. ABDOMEN: Soft, nontender. Examination of lower extremities shows no evidence of edema. ELECTRICIAN APPRENTICE exam grossly intact. Patient has a flat affect. REVIEW OF LABS: We have sodium of 135, potassium 4.8, BUN 19, creatinine 0.8. ASSESSMENT: 1. Hyponatremia euvolemic with an element of syndrome of inappropriate antidiuretic hormone, responded well to Samsca. Currently maintained on p.o. Lasix and doing well. Continue with fluid restriction. Patient could be discharged on 40 mg of Lasix p.o. daily with plans to follow up as outpatient in one week's time with repeat labs in about 4-5 days as outpatient. 2. Schizophrenia. 3. Mental status changes secondary to hyponatremia, currently improved. MMODL / IJN: [id number] /
--- NOTE | 2019-01-04 08:03 | CDI ---
Documentation Clarification Form Date: 01/04/19 From: Anthony Craig Phone: call [phone] Admit Date: 12/23/2018 9:31:00 PM Patient Name: Adam Valle Visit Number: [id number] Discharge Date: 12/30/2018 3:27:00 PM ATTENTION: The Clinical Documentation Specialists (CDI) and [facility] Coding Staff appreciate your assistance in clarifying documentation. Please respond to the clarification below the line at the bottom and electronically sign. The CDI & [facility] Coding staff will review the response and follow-up if needed. Please note: Queries are made part of the Legal Health Record. If you have any questions, please contact the author of this message via ITS. Dr. Joshua Carreno, The patient presented with the following hypovolemic Hyponatremia. History/Risk Factors: COPD, Schizophrenia. Lab findings: sodium 114. Treatment: IV fluids Consults: In File Operator. In 12/30 arnoldo Garcia progress note stated as "Hyponatremia euvolemic with an element of syndrome of inappropriate antidiuretic hormone, responded well to Samsca". In your professional opinion, can you please clarify Hyponatremia related to SIADH? YES NO Other, please specify Unable to determine Yes MTDD
== END 2018-12-30 15:27 | disposition home health service (06) | DRG 643 ==
LOC: EC 16:21 → 2SICU 21:31
PROVIDERS: ADMIT Internal Medicine; ATTEND Internal Medicine
DX: E22.2 Syndrome of inappropriate secretion of antidiuretic hormone (principal); G93.41 Metabolic encephalopathy; J18.1 Lobar pneumonia, unspecified organism; J96.01 Acute respiratory failure with hypoxia; B37.0 Candidal stomatitis; J44.1 Chronic obstructive pulmonary disease with (acute) exacerbation; J44.0 Chronic obstructive pulmonary disease with (acute) lower respiratory infection; E87.3 Alkalosis; B88.8 Other specified infestations; E11.9 Type 2 diabetes mellitus without complications; E78.5 Hyperlipidemia, unspecified; E86.0 Dehydration; E86.1 Hypovolemia; T50.2X5A Adverse effect of carbonic-anhydrase inhibitors, benzothiadiazides and other diuretics, initial encounter; F20.9 Schizophrenia, unspecified; F17.200 Nicotine dependence, unspecified, uncomplicated; F31.9 Bipolar disorder, unspecified; I10 Essential (primary) hypertension; R62.7 Adult failure to thrive; W57.XXXA Bitten or stung by nonvenomous insect and other nonvenomous arthropods, initial encounter; Z79.51 Long term (current) use of inhaled steroids; Z79.899 Other long term (current) drug therapy; Z87.01 Personal history of pneumonia (recurrent); Z91.14 Patient's other noncompliance with medication regimen; Z91.19 Patient's noncompliance with other medical treatment and regimen; Z88.2 Allergy status to sulfonamides
CPT/HCPCS: 36415; 51702; 71045; 71046; 71260; 80048; 80053; 81003; 82550; 82570; 82607; 82728; 82747; 83540; 83550; 83735; 83880; 83883; 83921; 83935; 84100; 84132; 84133; 84165; 84295; 84300; 84443; 84484; 84550; 84560; 85025; 85027; 85379; 85610; 85652; 85730; 86038; 86334; 86431; 87040; 87502; 93005; 94640; 96360; 96365; 96367; 99285

== ENCOUNTER 2019-03-15 14:11 | Inpatient (IN) | payer MEDICARE ==
[2019-03-15] MEDS ORDERED: DIPH,PERTUS(ACELL)TETVAC-LF 0.5 ML VIAL IM ONE (14:35)
[2019-03-15] MEDS: SODIUM CHLORIDE 0.9% 500 ML 500 ML IV SCH ×2 (15:00→17:09)
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
--- NOTE | 2019-03-15 16:10 | XR ---
EXAMINATION TYPE: XR hand complete LT DATE OF EXAM: 03/15/2019 COMPARISON: NONE HISTORY: Medina index finger TECHNIQUE: 4 views FINDINGS: There is soft tissue swelling of the left index finger. I see no fracture nor dislocation. Joint spaces are normal. There is no sign of a foreign body. IMPRESSION: Significant soft tissue swelling. No fracture seen. There is osteoarthritis at the first carpometacarpal joint.
[2019-03-15 16:23] LABS: ALT 12 U/L (4-49); AST 31 U/L (17-59); African American GFR (CKD) >90 (>60 ml/min/1.73 sqM); Albumin 3.5 g/dL (3.5-5.0); Alkaline Phosphatase 113 U/L (38-126); Anion Gap 6 mmol/L; Blood Urea Nitrogen 7 mg/dL (9-20); C Reactive Protein 58.5 mg/L (<10.0); Calcium 8.6 mg/dL (8.4-10.2); Carbon Dioxide 28 mmol/L (22-30); Chloride 97 mmol/L (98-107); Glucose 102 mg/dL (74-99); Non-African American GFR(CKD) >90 (>60 ml/min/1.73 sqM); Potassium 4.8 mmol/L (3.5-5.1); Sodium 131 mmol/L (137-145); Total Bilirubin 0.9 mg/dL (0.2-1.3); Total Protein 6.4 g/dL (6.3-8.2)
[2019-03-15 16:27] LABS: Basophils % (A) 0 %; Eosinophils # (A) 0.1 k/uL (0-0.7); Eosinophils % (A) 1 %; HCT 43.1 % (39.0-53.0); HGB 14.1 gm/dL (13.0-17.5); Lymphocytes # (A) 4.9 k/uL (1.0-4.8); Lymphocytes % (A) 26 %; MCHC 32.8 g/dL (31.0-37.0); MCV 88.6 fL (80.0-100.0); Mean Platelet Volume 7.6; Monocytes # (A) 1.4 k/uL (0-1.0); Monocytes % (A) 8 %; Neutrophils # (A) 11.8 k/uL (1.3-7.7); Neutrophils % (A) 63 %; Platelet Count 278 k/uL (150-450); RBC 4.87 m/uL (4.30-5.90); RDW 13.4 % (11.5-15.5); WBC 18.8 k/uL (3.8-10.6)
[2019-03-15] MEDS ORDERED: CLINDAMYCIN 600 MG in DEXTROSE 5% IN WATER 50 ML IVPB STA ×2 (16:31)
[2019-03-15] MEDS ORDERED: VANCOMYCIN IV PER PHARMACY 1 EACH MISC MISCELLANE PRN (16:31)
[2019-03-15] MEDS ORDERED: VANCOMYCIN 1,500 MG in SODIUM CHLORIDE 0.9% 250 ML IVPB STA (16:35)
[2019-03-15] MEDS ORDERED: cefTRIAXone IN SWFI 1,000 MG/10 ML SYRINGE IVP STA (16:43)
[2019-03-15] MEDS ORDERED: HYDROcodone/APAP 5-325MG 1 EACH TAB PO PRN (17:12)
[2019-03-15] MEDS ORDERED: NALOXONE 0.4 MG/ML 1 ML VIAL IV PRN (17:12)
[2019-03-15] MEDS ORDERED: KETOROLAC 30 MG/ML 1 ML VIAL IVP PRN (17:12)
[2019-03-15] MEDS ORDERED: ACETAMINOPHEN TAB 325 MG TAB PO PRN (18:10)
[2019-03-15] MEDS: SODIUM CHLORIDE 0.9% 1,000 ML IV SCH (18:42)
[2019-03-15] MEDS: NICOTINE 21MG/24HR PATCH TRANSDERM SCH (20:54)
[2019-03-15] MEDS: PIPERACILLIN-TAZOBACTAM 3.375 GM in SODIUM CHLORIDE 0.9% 100 ML IVPB SCH ×2 (20:54→22:21)
[2019-03-15] MEDS: risperiDONE 1 MG TAB PO SCH (21:04)
[2019-03-16] MEDS: CLINDAMYCIN 600 MG in DEXTROSE 5% IN WATER 50 ML IVPB SCH ×6 (01:01→17:18)
[2019-03-16] MEDS: VANCOMYCIN 1,500 MG in SODIUM CHLORIDE 0.9% 250 ML IVPB SCH ×2 (03:09→11:42)
[2019-03-16 07:24] LABS: African American GFR (CKD) >90 (>60 ml/min/1.73 sqM); Non-African American GFR(CKD) >90 (>60 ml/min/1.73 sqM)
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
[2019-03-16] MEDS: FLUoxetine HCL 20 MG CAP PO SCH (10:39)
[2019-03-16] MEDS: CARVEDILOL 6.25 MG TAB PO SCH ×2 (10:39→17:21)
[2019-03-16] MEDS: risperiDONE 1 MG TAB PO SCH ×2 (10:41→20:33)
[2019-03-16] MEDS: PIPERACILLIN-TAZOBACTAM 3.375 GM in SODIUM CHLORIDE 0.9% 100 ML IVPB SCH ×3 (10:42→23:13)
[2019-03-16] MEDS: NICOTINE 21MG/24HR PATCH TRANSDERM SCH (10:42)
[2019-03-16] MEDS: SODIUM CHLORIDE 0.9% 1,000 ML IV SCH ×2 (11:42→17:23)
[2019-03-16] MEDS ORDERED: VANCOMYCIN TROUGH DUE 1 EACH MISC MISCELLANE ONE (17:00)
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
[2019-03-17 01:24] VITALS: RESP 16
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
[2019-03-17 07:37] LABS: HCT 39.3 % (39.0-53.0); HGB 12.7 gm/dL (13.0-17.5); MCH 29.8 pg (25.0-35.0); MCHC 32.4 g/dL (31.0-37.0); MCV 91.8 fL (80.0-100.0); Mean Platelet Volume 7.4; Platelet Count 298 k/uL (150-450); RBC 4.28 m/uL (4.30-5.90); RDW 13.2 % (11.5-15.5); WBC 15.9 k/uL (3.8-10.6)
[2019-03-17 07:43] LABS: ALT 13 U/L (4-49); AST 19 U/L (17-59); African American GFR (CKD) >90 (>60 ml/min/1.73 sqM); Alkaline Phosphatase 109 U/L (38-126); Anion Gap 5 mmol/L; Blood Urea Nitrogen 8 mg/dL (9-20); Calcium 8.3 mg/dL (8.4-10.2); Carbon Dioxide 29 mmol/L (22-30); Chloride 103 mmol/L (98-107); Glucose 92 mg/dL (74-99); Non-African American GFR(CKD) >90 (>60 ml/min/1.73 sqM); Potassium 4.3 mmol/L (3.5-5.1); Sodium 137 mmol/L (137-145); Total Bilirubin 0.4 mg/dL (0.2-1.3); Total Protein 5.6 g/dL (6.3-8.2)
[2019-03-17] MEDS: FLUoxetine HCL 20 MG CAP PO SCH (08:11)
[2019-03-17] MEDS: NICOTINE 21MG/24HR PATCH TRANSDERM SCH (08:11)
[2019-03-17] MEDS: CARVEDILOL 6.25 MG TAB PO SCH (08:11)
[2019-03-17] MEDS: risperiDONE 1 MG TAB PO SCH (08:12)
[2019-03-17] MEDS: PIPERACILLIN-TAZOBACTAM 3.375 GM in SODIUM CHLORIDE 0.9% 100 ML IVPB SCH (08:15)
[2019-03-17 08:56] VITALS: BP 162/99; PULSE 82; TEMP 98.1
[2019-03-17 09:16] LABS: Eosinophils # (M) 0.32 k/uL (0-0.7); Monocytes # (M) 0.95 k/uL (0-1.0); Neutrophils # (M) 8.43 k/uL (1.3-7.7); Neutrophils % (M) 53 %; Nucleated Red Blood Cells 0 /100 WBC (0-0); Total Cells Counted 100
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
== END 2019-03-17 15:40 | disposition home health service (06) | DRG 603 ==
LOC: EC 14:11 → 4SSUR 17:19
PROVIDERS: ADMIT Family Medicine; ATTEND Family Medicine
DX: L03.012 Cellulitis of left finger (principal); E87.1 Hypo-osmolality and hyponatremia; F17.210 Nicotine dependence, cigarettes, uncomplicated; F20.9 Schizophrenia, unspecified; I10 Essential (primary) hypertension; J44.9 Chronic obstructive pulmonary disease, unspecified; S60.421A Blister (nonthermal) of left index finger, initial encounter; T23.022A Burn of unspecified degree of single left finger (nail) except thumb, initial encounter; Z79.899 Other long term (current) drug therapy; Z79.51 Long term (current) use of inhaled steroids; Z88.2 Allergy status to sulfonamides; E11.9 Type 2 diabetes mellitus without complications
CPT/HCPCS: 36415; 80053; 82565; 83605; 85025; 86140; 87040; 90471; 90715; 96365; 96367; 99284

== ENCOUNTER 2019-03-29 11:58 | Inpatient (IN) | payer MEDICARE ==
[2019-03-29] MEDS ORDERED: IPRATROPIUM-ALBUTEROL 3 ML NEB INHALATION STA (13:09)
--- NOTE | 2019-03-29 13:10 | ED ---
General Adult HPI <Isaac Howell - Last Filed: 03/29/19 16:56> - General Source: EMS, RN notes reviewed, old records reviewed Mode of arrival: EMS Limitations: altered mental status <Ken Figueroa - Last Filed: 03/29/19 17:02> - General Chief complaint: Altered Mental Status Stated complaint: Unresponsive Time Seen by Provider: 03/29/19 12:50 - History of Present Illness Initial comments: Patient is a 63-year-old male with a past medical history of diabetes, hypertension, schizophrenia who presents to the emergency department for altered mental status. Apparently patient's girlfriend called EMS when she found him unresponsive. Patient is noted to have been admitted to the hospital about 2 we eks ago for a cellulitic infection of the left second digit. History is limited as there is no family at bedside and patient is unable to discuss symptoms.Patient has no other complaints at this time including shortness of breath, chest pain, abdominal pain, nausea or vomiting, headache, or visual changes. (Ken Figueroa) - Related Data Home Medications Medication Instructions Recorded Confirmed Acetaminophen Tab [Tylenol] 650 mg PO Q8H PRN 03/15/19 03/29/19 Previous Rx's Medication Instructions Recorded FLUoxetine HCL [PROzac] 20 mg PO DAILY #30 cap 07/10/16 risperiDONE 3 mg PO BID #60 tablet 07/10/16 Carvedilol [Coreg] 6.25 mg PO AC-BID #60 tab 03/17/19 Nicotine 21Mg/24Hr Patch [Habitrol] 1 patch TRANSDERM DAILY #30 patch 03/17/19 Allergies Allergy/AdvReac Type Severity Reaction Status Date / Time Sulfa (Sulfonamide Allergy Rash/Hives Verified 03/29/19 12:35 Antibiotics) Review of Systems ROS Other: All systems not noted in ROS Statement are negative. <Isaac Howell - Last Filed: 03/29/19 16:56> ROS Other: All systems not noted in ROS Statement are negative. <Ken Figueroa - Last Filed: 03/29/19 17:02> ROS Statement: Those systems with pertinent positive or pertinent negative responses have been documented in the HPI. Past Medical History Past Medical History: Diabetes Mellitus, Hypertension History of Any Multi-Drug Resistant Organisms: None Reported Past Surgical History: Orthopedic Surgery Additional Past Surgical History / Comment(s): sinus sx Past Anesthesia/Blood Transfusion Reactions: No Reported Reaction Past Psychological History: Schizophrenia Smoking Status: Current every day smoker Past Alcohol Use History: None Reported Past Drug Use History: None Reported <Ken Figueroa - Last Filed: 03/29/19 17:02> General Exam Limitations: altered mental status General appearance: other (drowsy) Head exam: Present: atraumatic, normocephalic, normal inspection Eye exam: Absent: scleral icterus, conjunctival injection, periorbital swelling ENT exam: Present: normal exam, mucous membranes moist Neck exam: Present: normal inspection. Absent: tenderness, meningismus, lymphadenopathy Respiratory exam: Present: wheezes. Absent: respiratory distress, rales, rhonchi, stridor Cardiovascular Exam: Present: regular rate, normal rhythm, normal heart sounds. Absent: systolic murmur, diastolic murmur, rubs, gallop, clicks GI/Abdominal exam: Present: soft, normal bowel sounds. Absent: distended, tenderness, guarding, rebound, rigid Expanded Eye Response: (2) open to pain Motor Response: (5) localizes to pain Verbal Response: (4) confused conversation [place] Total: 11 <Ken Figueroa - Last Filed: 03/29/19 17:02> Course <Ken Figueroa - Last Filed: 03/29/19 17:02> Vital Signs 03/29/19 03/29/19 03/29/19 12:31 13:50 14:04 Temperature 97.7 F Pulse Rate 92 92 93 Respiratory 20 22 Rate Blood Pressure 148/124 170/121 O2 Sat by Pulse 94 L 100 Oximetry 03/29/19 03/29/19 14:05 15:45 Temperature Pulse Rate 92 96 Respiratory 28 H Rate Blood Pressure 150/114 O2 Sat by Pulse 94 L Oximetry - Reevaluation(s) Reevaluation #1: 03/29/19 13:09 Dr Howell at bedside immediately after I did an evaluation on patient. Duoned ordered 03/29/19 16:53 (Ken Figueroa) EKG Findings - EKG Comments: EKG Findings:: Normal sinus rhythm, ventricular rate 98, OR interval 138, QTC 441 <Ken Figueroa - Last Filed: 01/14/20 17:02> Medical Decision Making - Lab Data Result diagrams: 03/29/19 12:37 03/29/19 12:37 <Isaac Howell - Last Filed: 03/29/19 16:56> - Lab Data Result diagrams: 03/29/19 12:37 03/29/19 12:37 <Ken Figueroa - Last Filed: 03/29/19 17:02> - Medical Decision Making Patient reevaluated twice by myself, Dr. Howell. No meningismus. Patient does remain drowsy. Patient is oriented to name and place. Patient has severe hyponatremia. Case was discussed in detail with Dr. Garcia who recommends 3% sodium at 20 mL per hour for 3 hours and then recheck. She would like to be called with recheck. Case also discussed with Dr. Miranda, who will consult for critical care. Both are aware of leukocytosis and agrees that likely cause of change of mental status as severe hyponatremia. Case also discussed with Dr. stratton, who will admit for hospital call. (Isaac Howell) Heart rate temperature and O2 saturation is stable. Patient is hypertensive. He was immediately seen by both myself and Dr. Howell. He takes Coreg. Unknown if he took this today. Patient is lethargic and difficult to arouse however he does answer questions when aroused. GCS of about 11. CBC does show a white blood cell count of 31. Previous notes state the patient has a history of chronic leukocytosis. He does have history of a left second digit infection 2 weeks ago however this appears much improved at this time. CMP shows severe hyponatremia of 111. Potassium of 5.3 however this is hemolyzed. Troponin is negative. Urinalysis negative. CT brain showed age-related atrophic and chronic small vessel ischemic change without acute intracranial process seen at this time. Chest x-ray shows trace bilateral pleural effusions improved from prior. There is peribronchial cuffing noted. Cervical left hand shows no acute fracture or dislocation. Dr. Oliva I gave this patient a 500 mL bolus of normal saline as last started him on 125 mL per hour normal saline for gentle rehydration. (Ken Figueroa) - Lab Data Lab Results 03/29/19 03/29/19 03/29/19 Range/Units 12:37 12:37 12:37 WBC 31.1 H (3.8-10.6) k/uL RBC 4.91 (4.30-5.90) m/uL Hgb 14.3 (13.0-17.5) gm/dL Hct 40.9 (39.0-53.0) % MCV 83.2 D (80.0-100.0) fL MCH 29.2 (25.0-35.0) pg MCHC 35.1 (31.0-37.0) g/dL RDW 13.1 (11.5-15.5) % Plt Count 304 (150-450) k/uL Neutrophils % 68 % Lymphocytes % 23 % Monocytes % 5 % Eosinophils % 0 % Basophils % 1 % Neutrophils # 21.2 H (1.3-7.7) k/uL Lymphocytes # 7.1 H (1.0-4.8) k/uL Monocytes # 1.5 H (0-1.0) k/uL Eosinophils # 0.0 (0-0.7) k/uL Basophils # 0.3 H (0-0.2) k/uL Manual Slide Review Performed PT 9.8 (9.0-12.0) sec INR 0.9 (<1.2) APTT 26.3 (22.0-30.0) sec Sample Site ABG pH (7.35-7.45) ABG pCO2 (35-45) mmHg ABG pO2 (83-108) mmHg ABG HCO3 (21-25) mmol/L ABG Total CO2 (19-24) mmol/L ABG O2 Saturation (94-97) % ABG Base Excess mmol/L Luis Test FiO2 % Sodium 111 L* (137-145) mmol/L Potassium 5.3 H (3.5-5.1) mmol/L Chloride 74 L* (98-107) mmol/L Carbon Dioxide 26 (22-30) mmol/L Anion Gap 11 mmol/L BUN 6 L (9-20) mg/dL Creatinine 0.44 L (0.66-1.25) mg/dL Est GFR (CKD-EPI)AfAm >90 (>60 ml/min/1.73 sqM) Est GFR (CKD-EPI)NonAf >90 (>60 ml/min/1.73 sqM) Glucose 113 H (74-99) mg/dL Calcium 8.3 L (8.4-10.2) mg/dL Magnesium (1.6-2.3) mg/dL Total Bilirubin 0.9 (0.2-1.3) mg/dL AST 35 (17-59) U/L ALT 14 (4-49) U/L Alkaline Phosphatase 135 H (38-126) U/L Troponin I (0.000-0.034) ng/mL NT-Pro-B Natriuret Pep pg/mL Total Protein 6.7 (6.3-8.2) g/dL Albumin 3.8 (3.5-5.0) g/dL Urine Color Urine Appearance (Clear) Urine pH (5.0-8.0) Ur Specific Hester (1.001-1.035) Urine Protein (Negative) Urine Glucose (UA) (Negative) Urine Ketones (Negative) Urine Blood (Negative) Urine Nitrite (Negative) Urine Bilirubin (Negative) Urine Urobilinogen (<2.0) mg/dL Ur Leukocyte Esterase (Negative) Urine Opiates Screen (NotDetected) Ur Oxycodone Screen (NotDetected) Urine Methadone Screen (NotDetected) Ur Propoxyphene Screen (NotDetected) Ur Barbiturates Screen (NotDetected) U Tricyclic Antidepress (NotDetected) Ur Phencyclidine Scrn (NotDetected) Ur Amphetamines Screen (NotDetected) U Methamphetamines Scrn (NotDetected) U Benzodiazepines Scrn (NotDetected) Urine Cocaine Screen (NotDetected) U Marijuana (THC) Screen (NotDetected) Serum Alcohol <10 mg/dL 03/29/19 03/29/19 03/29/19 Range/Units 12:37 12:37 12:37 WBC (3.8-10.6) k/uL RBC (4.30-5.90) m/uL Hgb (13.0-17.5) gm/dL Hct (39.0-53.0) % MCV (80.0-100.0) fL MCH (25.0-35.0) pg MCHC (31.0-37.0) g/dL RDW (11.5-15.5) % Plt Count (150-450) k/uL Neutrophils % % Lymphocytes % % Monocytes % % Eosinophils % % Basophils % % Neutrophils # (1.3-7.7) k/uL Lymphocytes # (1.0-4.8) k/uL Monocytes # (0-1.0) k/uL Eosinophils # (0-0.7) k/uL Basophils # (0-0.2) k/uL Manual Slide Review PT (9.0-12.0) sec INR (<1.2) APTT (22.0-30.0) sec Sample Site ABG pH (7.35-7.45) ABG pCO2 (35-45) mmHg ABG pO2 (83-108) mmHg ABG HCO3 (21-25) mmol/L ABG Total CO2 (19-24) mmol/L ABG O2 Saturation (94-97) % ABG Base Excess mmol/L Luis Test FiO2 % Sodium (137-145) mmol/L Potassium (3.5-5.1) mmol/L Chloride (98-107) mmol/L Carbon Dioxide (22-30) mmol/L Anion Gap mmol/L BUN (9-20) mg/dL Creatinine (0.66-1.25) mg/dL Est GFR (CKD-EPI)AfAm (>60 ml/min/1.73 sqM) Est GFR (CKD-EPI)NonAf (>60 ml/min/1.73 sqM) Glucose (74-99) mg/dL Calcium (8.4-10.2) mg/dL Magnesium 1.7 (1.6-2.3) mg/dL Total Bilirubin (0.2-1.3) mg/dL AST (17-59) U/L ALT (4-49) U/L Alkaline Phosphatase (38-126) U/L Troponin I <0.012 (0.000-0.034) ng/mL NT-Pro-B Natriuret Pep 405 pg/mL Total Protein (6.3-8.2) g/dL Albumin (3.5-5.0) g/dL Urine Color Urine Appearance (Clear) Urine pH (5.0-8.0) Ur Specific Hester (1.001-1.035) Urine Protein (Negative) Urine Glucose (UA) (Negative) Urine Ketones (Negative) Urine Blood (Negative) Urine Nitrite (Negative) Urine Bilirubin (Negative) Urine Urobilinogen (<2.0) mg/dL Ur Leukocyte Esterase (Negative) Urine Opiates Screen (NotDetected) Ur Oxycodone Screen (NotDetected) Urine Methadone Screen (NotDetected) Ur Propoxyphene Screen (NotDetected) Ur Barbiturates Screen (NotDetected) U Tricyclic Antidepress (NotDetected) Ur Phencyclidine Scrn (NotDetected) Ur Amphetamines Screen (NotDetected) U Methamphetamines Scrn (NotDetected) U Benzodiazepines Scrn (NotDetected) Urine Cocaine Screen (NotDetected) U Marijuana (THC) Screen (NotDetected) Serum Alcohol mg/dL 03/29/19 03/29/19 Range/Units 13:14 14:20 WBC (3.8-10.6) k/uL RBC (4.30-5.90) m/uL Hgb (13.0-17.5) gm/dL Hct (39.0-53.0) % MCV (80.0-100.0) fL MCH (25.0-35.0) pg MCHC (31.0-37.0) g/dL RDW (11.5-15.5) % Plt Count (150-450) k/uL Neutrophils % % Lymphocytes % % Monocytes % % Eosinophils % % Basophils % % Neutrophils # (1.3-7.7) k/uL Lymphocytes # (1.0-4.8) k/uL Monocytes # (0-1.0) k/uL Eosinophils # (0-0.7) k/uL Basophils # (0-0.2) k/uL Manual Slide Review PT (9.0-12.0) sec INR (<1.2) APTT (22.0-30.0) sec Sample Site rt radial ABG pH 7.38 (7.35-7.45) ABG pCO2 49 H (35-45) mmHg ABG pO2 84 (83-108) mmHg ABG HCO3 29 H (21-25) mmol/L ABG Total CO2 31 H (19-24) mmol/L ABG O2 Saturation 96.9 (94-97) % ABG Base Excess 4.1 mmol/L Luis Test Yes FiO2 28 % Sodium (137-145) mmol/L Potassium (3.5-5.1) mmol/L Chloride (98-107) mmol/L Carbon Dioxide (22-30) mmol/L Anion Gap mmol/L BUN (9-20) mg/dL Creatinine (0.66-1.25) mg/dL Est GFR (CKD-EPI)AfAm (>60 ml/min/1.73 sqM) Est GFR (CKD-EPI)NonAf (>60 ml/min/1.73 sqM) Glucose (74-99) mg/dL Calcium (8.4-10.2) mg/dL Magnesium (1.6-2.3) mg/dL Total Bilirubin (0.2-1.3) mg/dL AST (17-59) U/L ALT (4-49) U/L Alkaline Phosphatase (38-126) U/L Troponin I (0.000-0.034) ng/mL NT-Pro-B Natriuret Pep pg/mL Total Protein (6.3-8.2) g/dL Albumin (3.5-5.0) g/dL Urine Color Yellow Urine Appearance Clear (Clear) Urine pH 7.5 (5.0-8.0) Ur Specific Hester 1.011 (1.001-1.035) Urine Protein Negative (Negative) Urine Glucose (UA) Trace H (Negative) Urine Ketones Trace H (Negative) Urine Blood Negative (Negative) Urine Nitrite Negative (Negative) Urine Bilirubin Negative (Negative) Urine Urobilinogen <2.0 (<2.0) mg/dL Ur Leukocyte Esterase Negative (Negative) Urine Opiates Screen Not Detected (NotDetected) Ur Oxycodone Screen Not Detected (NotDetected) Urine Methadone Screen Not Detected (NotDetected) Ur Propoxyphene Screen Not Detected (NotDetected) Ur Barbiturates Screen Not Detected (NotDetected) U Tricyclic Antidepress Not Detected (NotDetected) Ur Phencyclidine Scrn Not Detected (NotDetected) Ur Amphetamines Screen Not Detected (NotDetected) U Methamphetamines Scrn Not Detected (NotDetected) U Benzodiazepines Scrn Not Detected (NotDetected) Urine Cocaine Screen Not Detected (NotDetected) U Marijuana (THC) Screen Not Detected (NotDetected) Serum Alcohol mg/dL Critical Care Time Critical Care Time: Yes (33) <Ken Figueroa P - Last Filed: 03/29/19 17:02> Critical Care Time: Critical care time was exclusive of separately billable procedures and treating other patients Critical care was necessary to treat or prevent imminent or life-threatening deterioration. Given the critical condition in which the patient arrived, the patient was immediately assessed by myself and the nurse, and cardiac monitoring initiated due to the potential for rapid decompensation of the patient's clinical condition. During the course of the patients stay, I spent a considerable amount of time at the bedside performing serial re-evaluations of the patient's hemodynamic and clinical status because of the recognized potential threat to life or limb in this condition. I then had a chance to review not only all of the available current laboratory and radiographic studies obtained today, but I also reviewed old records available to me at the time. Additionally, any ancillary information available including track rider records were reviewed. Sequential vital signs were obtained. (Ken Figueroa) Disposition <Isaac Howell - Last Filed: 03/29/19 16:56> Is patient prescribed a controlled substance at d/c from ED?: No Time of Disposition: 17:00 <Ken Figueroa - Last Filed: 03/29/19 17:02> Clinical Impression: Hyponatremia, Altered mental status Disposition: ADMITTED IP TO THIS HOSP Condition: Critical Referrals: None,Stated [Primary Care Provider] - 1-2 days
[2019-03-29 13:28] LABS: ABG Base Excess 4.1 mmol/L; ABG HCO3 29 mmol/L (21-25); ABG Oxygen Saturation 96.9 % (94-97); ABG PCO2 49 mmHg (35-45); ABG PH 7.38 (7.35-7.45); ABG PO2 84 mmHg (83-108); ABG TCO2 31 mmol/L (19-24); Allen Test Performed? Yes
[2019-03-29 13:44] LABS: ALT 14 U/L (4-49); AST 35 U/L (17-59); African American GFR (CKD) >90 (>60 ml/min/1.73 sqM); Albumin 3.8 g/dL (3.5-5.0); Alcohol <10 mg/dL; Alkaline Phosphatase 135 U/L (38-126); Anion Gap 11 mmol/L; Blood Urea Nitrogen 6 mg/dL (9-20); Calcium 8.3 mg/dL (8.4-10.2); Carbon Dioxide 26 mmol/L (22-30); Glucose 113 mg/dL (74-99); Non-African American GFR(CKD) >90 (>60 ml/min/1.73 sqM); Total Bilirubin 0.9 mg/dL (0.2-1.3); Total Protein 6.7 g/dL (6.3-8.2)
[2019-03-29 13:52] LABS: INR 0.9 (<1.2); Partial Thromboplastin Time 26.3 sec (22.0-30.0); Prothrombin Time 9.8 sec (9.0-12.0)
[2019-03-29 13:56] LABS: Potassium 5.3 mmol/L (3.5-5.1); Sodium 111 mmol/L (137-145)
[2019-03-29 13:57] LABS: Chloride 74 mmol/L (98-107)
[2019-03-29] MEDS ORDERED: SODIUM CHLORIDE 0.9% 1,000 ML IV STA (13:57)
--- NOTE | 2019-03-29 13:57 | XR ---
EXAMINATION TYPE: XR chest 2V DATE OF EXAM: 03/29/2019 COMPARISON: 12/30/2018 HISTORY: Altered mental status. Patient found down. TECHNIQUE: Frontal and lateral views of the chest are obtained. FINDINGS: Very trace bilateral pleural effusions blunt the costophrenic angles. Peribronchial cuffin g on the lateral view is noted. Pulmonary hyperinflation with flattening of the diaphragms. The card iac silhouette size is enlarged. The osseous structures are intact. IMPRESSION: 1. Trace bilateral pleural effusions, improved on the left from the prior. 2. Peribronchial cuffing, possibly reactive in this patient with presumed underlying COPD. Bronchitis and some alternative possibility.
--- NOTE | 2019-03-29 13:58 | CT ---
EXAMINATION TYPE: CT brain wo con DATE OF EXAM: 03/29/2019 COMPARISON: 11/09/2018 HISTORY: Unresponsive CT DLP: 1145.[address] of the brain was performed. The ventricles, basal cisterns and sulci overlying the cerebral convexities demonstrate mild enlargem ent. There is no evidence for intracranial hemorrhage or sulcal effacement. There is decreased attenuation about the periventricular white matter and deep white matter of both c erebral hemispheres, compatible with chronic small vessel ischemia. Differential diagnosis does inclu de demyelination. No mass effects are seen.No midline shift. Osseous calvarium is intact. The paranasal sinuses are completely opacified and they are expanded, as is the nasal cavity bilaterally. These findings are consistent with severe pansinusitis inflammatory changes with prominent nasal polyps. The attenuation is predominantly low-attenuation but there is s ome high attenuation, suggesting the possibility of a fungal component of the polyposis. If symptoms persist consider MRI. IMPRESSION: 1. Age related atrophic and chronic small vessel ischemic change without acute intracranial process s een at this time.
[2019-03-29 14:09] LABS: Basophils # (A) 0.3 k/uL (0-0.2); Basophils % (A) 1 %; Eosinophils % (A) 0 %; HCT 40.9 % (39.0-53.0); HGB 14.3 gm/dL (13.0-17.5); Lymphocytes # (A) 7.1 k/uL (1.0-4.8); Lymphocytes % (A) 23 %; MCH 29.2 pg (25.0-35.0); MCHC 35.1 g/dL (31.0-37.0); Mean Platelet Volume 7.6; Monocytes # (A) 1.5 k/uL (0-1.0); Monocytes % (A) 5 %; Neutrophils # (A) 21.2 k/uL (1.3-7.7); Neutrophils % (A) 68 %; Platelet Count 304 k/uL (150-450); RBC 4.91 m/uL (4.30-5.90); RDW 13.1 % (11.5-15.5); WBC 31.1 k/uL (3.8-10.6)
[2019-03-29 14:14] LABS: MCV 83.2 fL (80.0-100.0)
[2019-03-29 14:52] LABS: Appearance,Urine Clear (Clear); Bilirubin,Urine Negative (Negative); Blood,Urine Negative (Negative); Color,Urine Yellow; Glucose,Urine (UA) Trace (Negative); Ketones,Urine Trace (Negative); Leukocyte Esterase,Urine Negative (Negative); Nitrite,Urine Negative (Negative); PH, Urine 7.5 (5.0-8.0); Protein,Urine Negative (Negative); Specific Gravity,Urine 1.011 (1.001-1.035); Urobilinogen,Urine <2.0 mg/dL (<2.0)
[2019-03-29 15:07] LABS: Amphetamine Screen,Urine Not Detected (NotDetected); Barbiturate Screen,Urine Not Detected (NotDetected); Benzodiazepines Screen,Urine Not Detected (NotDetected); Cocaine Screen,Urine Not Detected (NotDetected); Methadone Screen, Urine Not Detected (NotDetected); Opiate Screen,Urine Not Detected (NotDetected); Oxycodone Screen, Urine Not Detected (NotDetected); Phencyclidine Screen,Urine Not Detected (NotDetected); Tricyclic Antidepressant,Urine Not Detected (NotDetected); Urn Cannabinoid Scrn Not Detected (NotDetected)
[2019-03-29] MEDS ORDERED: SODIUM CHLORIDE 0.9% 500 ML 500 ML IV STA (15:31)
[2019-03-29] MEDS ORDERED: LABETALOL 5 MG/ML VIAL MDV IVP STA (16:06)
--- NOTE | 2019-03-29 16:22 | XR ---
EXAMINATION TYPE: XR hand complete LT DATE OF EXAM: 03/29/2019 CLINICAL HISTORY: pain TECHNIQUE: Frontal, lateral and oblique images of the left hand are obtained. COMPARISON: None. FINDINGS: There is no acute fracture/dislocation evident. The joint spaces appear within normal limi ts. Soft tissue swelling left second digit. No evidence for radiopaque foreign body. There are no bon y destructive process identified. IMPRESSION: There is no acute fracture or dislocation. ICD 10 NO FRACTURE, INITIAL EVALUATION
[2019-03-29] MEDS ORDERED: NALOXONE 0.4 MG/ML 1 ML VIAL IV PRN (16:54)
[2019-03-29] MEDS ORDERED: SODIUM CHLORIDE 3%(HYPERTONIC) 500 ML IV SCH ×2 (17:00→22:45)
[2019-03-29] MEDS: IPRATROPIUM-ALBUTEROL 3 ML NEB INHALATION PRN (19:32)
[2019-03-29 19:35] LABS: Glucose,Whole Blood 117 mg/dL (75-99)
[2019-03-29] MEDS ORDERED: LABETALOL 5 MG/ML VIAL MDV IVP SCH (22:45)
[2019-03-30] MEDS: LABETALOL 5 MG/ML VIAL MDV IVP PRN (04:51)
[2019-03-30 05:30] LABS: ALT 16 U/L (4-49); AST 30 U/L (17-59); African American GFR (CKD) >90 (>60 ml/min/1.73 sqM); Albumin 3.3 g/dL (3.5-5.0); Alkaline Phosphatase 125 U/L (38-126); Anion Gap 6 mmol/L; Blood Urea Nitrogen 7 mg/dL (9-20); Calcium 7.9 mg/dL (8.4-10.2); Carbon Dioxide 27 mmol/L (22-30); Chloride 80 mmol/L (98-107); Glucose 101 mg/dL (74-99); Magnesium 1.7 mg/dL (1.6-2.3); Non-African American GFR(CKD) >90 (>60 ml/min/1.73 sqM); Total Bilirubin 0.6 mg/dL (0.2-1.3)
[2019-03-30 05:35] LABS: Sodium 113 mmol/L (137-145)
[2019-03-30 05:36] LABS: HCT 38.9 % (39.0-53.0); HGB 13.3 gm/dL (13.0-17.5); MCH 29.3 pg (25.0-35.0); MCHC 34.2 g/dL (31.0-37.0); MCV 85.8 fL (80.0-100.0); Mean Platelet Volume 7.3; Platelet Count 303 k/uL (150-450); RBC 4.54 m/uL (4.30-5.90); RDW 13.2 % (11.5-15.5); WBC 25.6 k/uL (3.8-10.6)
[2019-03-30 06:06] LABS: Monocytes # (M) 1.79 k/uL (0-1.0); Neutrophils % (M) 59 %; Nucleated Red Blood Cells 0 /100 WBC (0-0); Total Cells Counted 100
[2019-03-30] MEDS ORDERED: Magnesium Replacement Protocol 1 EACH MISC MISCELLANE PRN (06:22)
[2019-03-30] MEDS: MAGNESIUM SULFATE-D5W PMX 1 GM in DEXTROSE/WATER 1 100ML.BAG IVPB SCH ×2 (06:33→09:34)
[2019-03-30 06:50] LABS: Glucose,Whole Blood 101 mg/dL (75-99)
--- NOTE | 2019-03-30 07:23 | XR ---
EXAMINATION TYPE: XR chest 1V portable DATE OF EXAM: 03/30/2019 CLINICAL HISTORY: Difficulty breathing progress study. TECHNIQUE: Single AP portable upright view of the chest is obtained. COMPARISON: Chest x-ray from one day earlier and older x-rays. FINDINGS: Overlying EKG leads redemonstrated. Persistent cardiomegaly with atherosclerotic and ectat ic thoracic aorta causing mass effect on trachea. Background chronic parenchymal change with new righ t basilar consolidation laterally. Left lung remains clear. No pleural effusion or pneumothorax seen bilaterally. Osseous structures intact. IMPRESSION: Chronic parenchymal changes and cardiomegaly with new lateral right basilar acute consoli dation, aspiration pneumonia would be in the differential. Correlate clinically.
[2019-03-30] MEDS: IPRATROPIUM-ALBUTEROL 3 ML NEB INHALATION PRN ×4 (08:57→20:35)
[2019-03-30] MEDS: PANTOPRAZOLE 40 MG/10 ML VIAL IV SCH (09:34)
[2019-03-30] MEDS ORDERED: IPRATROPIUM-ALBUTEROL 3 ML NEB INHALATION PRN (11:37)
[2019-03-30 12:10] LABS: Glucose,Whole Blood 93 mg/dL (75-99)
[2019-03-30] MEDS: AMPICILLIN-SULBACTAM 3 GM in SODIUM CHLORIDE 0.9% 100 ML IVPB SCH ×3 (12:35→23:40)
--- NOTE | 2019-03-30 14:33 | P.HPIM ---
History of Present Illness 63-year-old male with known history of hypertension schizophrenia came in complete leak confused altered mental status patient is unable to provide any history to me patient is excessively drowsy but able to wake up with verbal stimuli. But unable to provide any history. Patient is found to be severely hyponatremic also found to have aspiration pneumonia. Patient does have significant leukocytosis. Patient in the past was treated for hypovolemic as was hypovolemic hyponatremia. Patient serum sodium is extremely low at 113 on 3% saline to 117. Nephrology is following the patient I did order urine osmolality, serum osmolality urine random sodium urine didn't random creatinine urinary uric acid although these labs will not be reliable because as patient is already on saline now. Review of Systems Unable to obtain due to his clinical condition Past Medical History Past Medical History: Diabetes Mellitus, Hypertension History of Any Multi-Drug Resistant Organisms: None Reported Past Surgical History: Orthopedic Surgery Additional Past Surgical History / Comment(s): sinus sx Past Anesthesia/Blood Transfusion Reactions: No Reported Reaction Past Psychological History: Schizophrenia Smoking Status: Current every day smoker Past Alcohol Use History: None Reported Past Drug Use History: None Reported Medications and Allergies Home Medications Medication Instructions Recorded Confirmed Type FLUoxetine HCL [PROzac] 20 mg PO DAILY #30 cap 07/10/16 03/29/19 Rx risperiDONE 3 mg PO BID #60 tablet 07/10/16 03/29/19 Rx Acetaminophen Tab [Tylenol] 650 mg PO Q8H PRN 03/15/19 03/29/19 History Carvedilol [Coreg] 6.25 mg PO AC-BID #60 tab 03/17/19 03/29/19 Rx Nicotine 21Mg/24Hr Patch [Habitrol] 1 patch TRANSDERM DAILY #30 patch 03/17/19 03/29/19 Rx Allergies Allergy/AdvReac Type Severity Reaction Status Date / Time Sulfa (Sulfonamide Allergy Rash/Hives Verified 03/29/19 12:35 Antibiotics) Physical Exam Vitals: Vital Signs Temp Pulse Pulse Resp BP BP Pulse Ox 03/30/19 12:32 88 03/30/19 12:22 84 03/30/19 10:00 86 19 144/86 92 L 03/30/19 09:10 90 03/30/19 09:00 92 21 150/104 97 03/30/19 08:59 94 95 03/30/19 08:00 97.5 F L 88 22 161/89 96 03/30/19 07:00 85 19 160/89 96 03/30/19 06:00 80 18 127/88 95 03/30/19 05:00 81 18 153/91 96 03/30/19 04:00 98.7 F 99 20 162/98 96 03/30/19 03:00 99 18 161/93 95 03/30/19 02:00 102 H 16 161/105 95 03/30/19 01:00 95 17 140/90 96 03/30/19 00:00 99.5 F 90 18 143/96 97 03/29/19 23:00 99 20 149/85 99 03/29/19 22:00 89 18 149/88 98 03/29/19 21:00 80 16 160/99 03/29/19 20:00 98.6 F 87 18 154/109 97 03/29/19 19:45 86 18 03/29/19 19:33 90 20 03/29/19 19:07 97.7 F 96 22 150/114 96 03/29/19 18:35 104 H 22 154/104 96 03/29/19 15:45 96 28 H 150/114 94 L Intake and Output 03/29/19 03/30/19 03/30/19 22:59 06:59 14:59 Intake Total 1635 230 160 Output Total 375 550 225 Balance 1260 -320 -65 Intake: IV 435 230 160 Magnesium Sulfate-D5w Pmx 100 100 1 gm In Dextrose/Water 1 100ml.bag @ 100 mls/hr IVPB Q1H [facility] Rx#: [id number] Sodium Chloride 0.9% 1, 375 10 000 ml @ 125 mls/hr IV . Q8H [facility] Rx#:[id number] Sodium Chloride 3%( 60 120 60 Hypertonic) 500 ml @ 20 mls/hr IV .Q24H [facility] Rx#: [id number] Amount of Fluid Infused ( 1200 ml) Output: Urine 375 550 225 Other: Voiding Method Indwelling Catheter Indwelling Catheter Indwelling Catheter Weight 117 kg PHYSICAL EXAMINATION: GENERAL: Excessively sleepy arousable with verbal stimuli severely lethargic HEENT: Pupils are round and equally reacting to light. EOMI. No scleral icterus. No conjunctival pallor. Normocephalic, atraumatic. No pharyngeal erythema. No thyromegaly. CARDIOVASCULAR: S1 and S2 present. No murmurs, rubs, or gallops. PULMONARY: Chest is clear to auscultation, no wheezing or crackles. ABDOMEN: Soft, nontender, nondistended, normoactive bowel sounds. No palpable organomegaly. MUSCULOSKELETAL: No joint swelling or deformity. EXTREMITIES: No cyanosis, clubbing, or pedal edema. NEUROLOGICAL: Unable to assess SKIN: No rashes. Results CBC & Chem 7: 03/30/19 05:01 03/30/19 13:43 Labs: Abnormal Lab Results - Last 24 Hours (Table) 03/29/19 03/29/19 03/29/19 Range/Units 12:37 14:20 17:23 WBC 31.1 H (3.8-10.6) k/uL Hct (39.0-53.0) % Neutrophils # 21.2 H (1.3-7.7) k/uL Neutrophils # (Manual) (1.3-7.7) k/uL Lymphocytes # 7.1 H (1.0-4.8) k/uL Lymphocytes # (Manual) (1.0-4.8) k/uL Monocytes # 1.5 H (0-1.0) k/uL Monocytes # (Manual) (0-1.0) k/uL Basophils # 0.3 H (0-0.2) k/uL Sodium 110 L* (137-145) mmol/L Chloride (98-107) mmol/L BUN (9-20) mg/dL Creatinine (0.66-1.25) mg/dL Glucose (74-99) mg/dL POC Glucose (mg/dL) (75-99) mg/dL Osmolality (280-301) mosm/kg Calcium (8.4-10.2) mg/dL Total Protein (6.3-8.2) g/dL Albumin (3.5-5.0) g/dL Urine Glucose (UA) Trace H (Negative) Urine Ketones Trace H (Negative) 03/29/19 03/29/19 03/30/19 Range/Units 19:15 21:36 00:11 WBC (3.8-10.6) k/uL Hct (39.0-53.0) % Neutrophils # (1.3-7.7) k/uL Neutrophils # (Manual) (1.3-7.7) k/uL Lymphocytes # (1.0-4.8) k/uL Lymphocytes # (Manual) (1.0-4.8) k/uL Monocytes # (0-1.0) k/uL Monocytes # (Manual) (0-1.0) k/uL Basophils # (0-0.2) k/uL Sodium 113 L* 113 L* (137-145) mmol/L Chloride (98-107) mmol/L BUN (9-20) mg/dL Creatinine (0.66-1.25) mg/dL Glucose (74-99) mg/dL POC Glucose (mg/dL) 117 H (75-99) mg/dL Osmolality (280-301) mosm/kg Calcium (8.4-10.2) mg/dL Total Protein (6.3-8.2) g/dL Albumin (3.5-5.0) g/dL Urine Glucose (UA) (Negative) Urine Ketones (Negative) 03/30/19 03/30/19 03/30/19 Range/Units 05:01 05:01 05:01 WBC 25.6 H (3.8-10.6) k/uL Hct 38.9 L (39.0-53.0) % Neutrophils # (1.3-7.7) k/uL Neutrophils # (Manual) 15.10 H (1.3-7.7) k/uL Lymphocytes # (1.0-4.8) k/uL Lymphocytes # (Manual) 8.70 H (1.0-4.8) k/uL Monocytes # (0-1.0) k/uL Monocytes # (Manual) 1.79 H (0-1.0) k/uL Basophils # (0-0.2) k/uL Sodium 113 L* 114 L* (137-145) mmol/L Chloride 80 L (98-107) mmol/L BUN 7 L (9-20) mg/dL Creatinine 0.47 L (0.66-1.25) mg/dL Glucose 101 H (74-99) mg/dL POC Glucose (mg/dL) (75-99) mg/dL Osmolality (280-301) mosm/kg Calcium 7.9 L (8.4-10.2) mg/dL Total Protein 6.0 L (6.3-8.2) g/dL Albumin 3.3 L (3.5-5.0) g/dL Urine Glucose (UA) (Negative) Urine Ketones (Negative) 03/30/19 03/30/19 03/30/19 Range/Units 05:01 06:39 09:30 WBC (3.8-10.6) k/uL Hct (39.0-53.0) % Neutrophils # (1.3-7.7) k/uL Neutrophils # (Manual) (1.3-7.7) k/uL Lymphocytes # (1.0-4.8) k/uL Lymphocytes # (Manual) (1.0-4.8) k/uL Monocytes # (0-1.0) k/uL Monocytes # (Manual) (0-1.0) k/uL Basophils # (0-0.2) k/uL Sodium 117 L* (137-145) mmol/L Chloride (98-107) mmol/L BUN (9-20) mg/dL Creatinine (0.66-1.25) mg/dL Glucose (74-99) mg/dL POC Glucose (mg/dL) 101 H (75-99) mg/dL Osmolality 235 L* (280-301) mosm/kg Calcium (8.4-10.2) mg/dL Total Protein (6.3-8.2) g/dL Albumin (3.5-5.0) g/dL Urine Glucose (UA) (Negative) Urine Ketones (Negative) 03/30/19 Range/Units 13:43 WBC (3.8-10.6) k/uL Hct (39.0-53.0) % Neutrophils # (1.3-7.7) k/uL Neutrophils # (Manual) (1.3-7.7) k/uL Lymphocytes # (1.0-4.8) k/uL Lymphocytes # (Manual) (1.0-4.8) k/uL Monocytes # (0-1.0) k/uL Monocytes # (Manual) (0-1.0) k/uL Basophils # (0-0.2) k/uL Sodium 116 L* (137-145) mmol/L Chloride (98-107) mmol/L BUN (9-20) mg/dL Creatinine (0.66-1.25) mg/dL Glucose (74-99) mg/dL POC Glucose (mg/dL) (75-99) mg/dL Osmolality (280-301) mosm/kg Calcium (8.4-10.2) mg/dL Total Protein (6.3-8.2) g/dL Albumin (3.5-5.0) g/dL Urine Glucose (UA) (Negative) Urine Ketones (Negative) Assessment and Plan Plan: -Severe hyponatremia: Multifactorial there may be a competent of psychogenic polydipsia, SIADH from medications as well as hypovolemia. Patient will be cont inued on 3% saline. -Possible aspiration pneumonia patient will be started on Unasyn. -Severe metabolic encephalopathy from hyponatremia -Type 2 diabetes mellitus -Schizophrenia -Nicotine abuse for above-mentioned chronic medical problems patient will be resumed on appropriate home medications whenever he can tolerate oral medications. Speech therapy was consulted because of his mental status to assess if he can actually swallow
--- NOTE | 2019-03-30 14:56 | P.CNPUL ---
History of Present Illness Consult date: 03/30/19 Requesting physician: Joshua Carreno Reason for consult: other (Severe hyponatremia.) Chief complaint: Mental status change History of present illness: This is a 63-year-old white male, poor historian, known history of schizophrenia, hypertension, patient is on multiple psychiatric medications, presented to the ER with mostly mental status change and worsening confusion. Patient was found to have extremely low sodium of 111, and his chest x-ray is suggestive of right lower lobe aspiration pneumonia. Patient was noted to have leukocytosis, he was noted to be hypovolemic clinically, and patient was initially started on 3% saline his repeat serum sodium today is 117. Nephrology has the patient on consultation, urine and serum osmolalities are pending. Considering the patient was admitted to the ICU and he was placed on 3% hypertonic saline, I was asked to see him on consultation. However upon my evaluation of the patient, he seems to be confused, in no form of respiratory distress, and no further information could be obtained from the patient himself. No family members at bedside. Review of Systems ROS unobtainable: due to mental status Past Medical History Past Medical History: Diabetes Mellitus, Hypertension History of Any Multi-Drug Resistant Organisms: None Reported Past Surgical History: Orthopedic Surgery Additional Past Surgical History / Comment(s): sinus sx Past Anesthesia/Blood Transfusion Reactions: No Reported Reaction Past Psychological History: Schizophrenia Smoking Status: Current every day smoker Past Alcohol Use History: None Reported Past Drug Use History: None Reported Medications and Allergies Home Medications Medication Instructions Recorded Confirmed Type FLUoxetine HCL [PROzac] 20 mg PO DAILY #30 cap 07/10/16 03/29/19 Rx risperiDONE 3 mg PO BID #60 tablet 07/10/16 03/29/19 Rx Acetaminophen Tab [Tylenol] 650 mg PO Q8H PRN 03/15/19 03/29/19 History Carvedilol [Coreg] 6.25 mg PO AC-BID #60 tab 03/17/19 03/29/19 Rx Nicotine 21Mg/24Hr Patch [Habitrol] 1 patch TRANSDERM DAILY #30 patch 03/17/19 03/29/19 Rx Allergies Allergy/AdvReac Type Severity Reaction Status Date / Time Sulfa (Sulfonamide Allergy Rash/Hives Verified 03/29/19 12:35 Antibiotics) Physical Exam Vitals: Vital Signs Temp Pulse Pulse Resp BP BP Pulse Ox 03/30/19 12:32 88 03/30/19 12:22 84 03/30/19 10:00 86 19 144/86 92 L 03/30/19 09:10 90 03/30/19 09:00 92 21 150/104 97 03/30/19 08:59 94 95 03/30/19 08:00 97.5 F L 88 22 161/89 96 03/30/19 07:00 85 19 160/89 96 03/30/19 06:00 80 18 127/88 95 03/30/19 05:00 81 18 153/91 96 03/30/19 04:00 98.7 F 99 20 162/98 96 03/30/19 03:00 99 18 161/93 95 03/30/19 02:00 102 H 16 161/105 95 03/30/19 01:00 95 17 140/90 96 03/30/19 00:00 99.5 F 90 18 143/96 97 03/29/19 23:00 99 20 149/85 99 03/29/19 22:00 89 18 149/88 98 03/29/19 21:00 80 16 160/99 03/29/19 20:00 98.6 F 87 18 154/109 97 03/29/19 19:45 86 18 03/29/19 19:33 90 20 03/29/19 19:07 97.7 F 96 22 150/114 96 03/29/19 18:35 104 H 22 154/104 96 03/29/19 15:45 96 28 H 150/114 94 L Intake and Output 03/29/19 03/30/19 03/30/19 22:59 06:59 14:59 Intake Total 1635 230 160 Output Total 375 550 225 Balance 1260 -320 -65 Intake: IV 435 230 160 Magnesium Sulfate-D5w Pmx 100 100 1 gm In Dextrose/Water 1 100ml.bag @ 100 mls/hr IVPB Q1H [facility] Rx#: [id number] Sodium Chloride 0.9% 1, 375 10 000 ml @ 125 mls/hr IV . Q8H [facility] Rx#:[id number] Sodium Chloride 3%( 60 120 60 Hypertonic) 500 ml @ 20 mls/hr IV .Q24H [facility] Rx#: [id number] Amount of Fluid Infused ( 1200 ml) Output: Urine 375 550 225 Other: Voiding Method Indwelling Catheter Indwelling Catheter Indwelling Catheter Weight 117 kg Physical Exam: Physical examination revealed a 63-year-old white male confused, in no distress. Seems to be sleepy and lethargic. But arousable Head: Atraumatic normocephalic. HEENT:[Neck is supple.] [No neck masses.] [No thyromegaly.] [No JVD.] PERRLA, EOMI, dry mucous membranes noted. No icterus. Chest: [Clear throughout, no crackles, no rhonchi, no wheezes.] Symmetrical chest expansion. Cardiac Exam: [Normal S1 and S2, no S3 gallop, no murmur.] Abdomen: Obese, [Soft, nontender, no megaly, no rebound, no guarding, normal bowel sounds.] Extremities: [No clubbing, no edema, no cyanosis.] Neurological Exam: Lethargic, arousable, follows simple instructions, but clearly confused and extremely poor mental status. Psychiatric: Calm, blunt affect, poor mental status examination. Skin: No rashes. Results - Laboratory Findings CBC and BMP: 03/30/19 05:01 03/30/19 13:43 ABG ABG pH 7.38 (7.35-7.45) 03/29/19 13:14 ABG pCO2 49 mmHg (35-45) H 03/29/19 13:14 ABG pO2 84 mmHg (83-108) 03/29/19 13:14 ABG O2 Saturation 96.9 % (94-97) 03/29/19 13:14 PT/INR, D-dimer PT 9.8 sec (9.0-12.0) 03/29/19 12:37 INR 0.9 (<1.2) 03/29/19 12:37 Abnormal lab findings: Abnormal Labs 03/29/19 03/29/19 03/29/19 12:37 12:37 13:14 WBC 31.1 H Hct Neutrophils # 21.2 H Neutrophils # (Manual) Lymphocytes # 7.1 H Lymphocytes # (Manual) Monocytes # 1.5 H Monocytes # (Manual) Basophils # 0.3 H ABG pCO2 49 H ABG HCO3 29 H ABG Total CO2 31 H Sodium 111 L* Potassium 5.3 H Chloride 74 L* BUN 6 L Creatinine 0.44 L Glucose 113 H POC Glucose (mg/dL) Osmolality Calcium 8.3 L Alkaline Phosphatase 135 H Total Protein Albumin Urine Glucose (UA) Urine Ketones 03/29/19 03/29/19 03/29/19 14:20 17:23 19:15 WBC Hct Neutrophils # Neutrophils # (Manual) Lymphocytes # Lymphocytes # (Manual) Monocytes # Monocytes # (Manual) Basophils # ABG pCO2 ABG HCO3 ABG Total CO2 Sodium 110 L* Potassium Chloride BUN Creatinine Glucose POC Glucose (mg/dL) 117 H Osmolality Calcium Alkaline Phosphatase Total Protein Albumin Urine Glucose (UA) Trace H Urine Ketones Trace H 03/29/19 03/30/19 03/30/19 21:36 00:11 05:01 WBC Hct Neutrophils # Neutrophils # (Manual) Lymphocytes # Lymphocytes # (Manual) Monocytes # Monocytes # (Manual) Basophils # ABG pCO2 ABG HCO3 ABG Total CO2 Sodium 113 L* 113 L* 113 L* Potassium Chloride 80 L BUN 7 L Creatinine 0.47 L Glucose 101 H POC Glucose (mg/dL) Osmolality Calcium 7.9 L Alkaline Phosphatase Total Protein 6.0 L Albumin 3.3 L Urine Glucose (UA) Urine Ketones 03/30/19 03/30/19 03/30/19 05:01 05:01 05:01 WBC 25.6 H Hct 38.9 L Neutrophils # Neutrophils # (Manual) 15.10 H Lymphocytes # Lymphocytes # (Manual) 8.70 H Monocytes # Monocytes # (Manual) 1.79 H Basophils # ABG pCO2 ABG HCO3 ABG Total CO2 Sodium 114 L* Potassium Chloride BUN Creatinine Glucose POC Glucose (mg/dL) Osmolality 235 L* Calcium Alkaline Phosphatase Total Protein Albumin Urine Glucose (UA) Urine Ketones 03/30/19 03/30/19 03/30/19 06:39 09:30 13:43 WBC Hct Neutrophils # Neutrophils # (Manual) Lymphocytes # Lymphocytes # (Manual) Monocytes # Monocytes # (Manual) Basophils # ABG pCO2 ABG HCO3 ABG Total CO2 Sodium 117 L* 116 L* Potassium Chloride BUN Creatinine Glucose POC Glucose (mg/dL) 101 H Osmolality Calcium Alkaline Phosphatase Total Protein Albumin Urine Glucose (UA) Urine Ketones - Diagnostic Findings Chest x-ray: image reviewed (Right lower lobe pneumonia is strongly suspected, considering the history is probably aspiration pneumonia unless proven otherwise) Assessment and Plan Assessment: Impression: Severe hyponatremia, etiology is not clear. However the patient seems to be responding well to 3% saline, being followed by nephrology on consultation, further workup of the hyponatremia is pending. I believe his hyponatremia is most likely related to his medications, could be psychogenic polydipsia could also be SIADH related. Mental status change, acute metabolic encephalopathy secondary to hyponatremia History of type 2 diabetes. History of schizophrenia hence the possibility of psychogenic polydipsia and hyponatremia is likely, awaiting osmolality of the serum and the urine. History of nicotine dependence syndrome. Recommendation: Continue to monitor the patient in the ICU. Continue to correct his low-sodium extremely slowly hopefully less than 12 mEq in the next 24 hours. Continue antibiotics for presumptive aspiration pneumonia patient is presently on Unasyn. Monitor sodium closely, check serum osmolality and urine osmolality as well as urine sodium. We'll continue to follow. Time with Patient: Greater than 30
[2019-03-30 17:10] LABS: Glucose,Whole Blood 106 mg/dL (75-99)
[2019-03-30 20:34] LABS: Glucose,Whole Blood 96 mg/dL (75-99)
[2019-03-30] MEDS: BUDESONIDE 0.5 MG/2 ML NEBU INHALATION SCH (20:35)
--- NOTE | 2019-03-30 21:59 | CONS ---
CONSULTATION REASON FOR CONSULT: Hyponatremia. HISTORY OF PRESENT ILLNESS: Patient is a 63-year-old male who was admitted to the hospital with a history of diabetes, hypertension, schizophrenia, who presented to the hospital with altered mental status. The patient's girlfriend called EMS as she had found him unresponsive. Recently patient was treated for cellulitis of his left second digit. He was found to have a serum sodium of 111 mEq/L. Patient has had a previous history of hyponatremia in December of 2018, after which his sodium had improved all the way up to 137 as of 03/17/2019. It is not clear if the patient started any new medications recently. We did not get a history of diarrhea or nausea and vomiting prior to admission. The patient is not on any thiazide diuretics at home. Urine osmolality and urine sodium were ordered, but it does not look like it was done. Patient was started on 3% saline yesterday because of his altered mentation. Serum sodium has improved up to 117 today, and I have discontinued the 3% saline. PAST MEDICAL HISTORY: 1. Type 2 diabetes. 2. Hypertension. 3. Schizophrenia. 4. Previous history of hyponatremia in December of 2018. SOCIAL HISTORY: Positive for smoking. No history of drug abuse or alcohol abuse. MEDICATIONS: Medications prior to admission included: 1. Prozac. 2. Risperidone. 3. Coreg. 4. Habitrol patch. ALLERGIES: Include SULFA, which causes rash and hives. PHYSICAL EXAMINATION: On examination, patient is comfortable, awake. He is not in any acute distress. Blood pressure was this morning 150/104, heart rate 92 per minute. He is comfortable. Patient is arousable but goes back to sleep. EXAMINATION OF THE HEART: S1 and S2. EXAMINATION OF LUNGS: Bilateral breath sounds are heard. Decreased breath sounds at bases. ABDOMEN: Soft, obese. Examination of lower extremities shows no evidence of edema. Patient has a scab on his left hand second digit. LABS: Sodium 114, potassium 5.0, chloride 80, BUN 7, creatinine 0.47, hemoglobin 13.3 g/dL. Repeat sodium was 117 at 9:30 a.m. ASSESSMENT: 1. Hyponatremia, most likely hypovolemic. Urine osmolality was not sent out yesterday, although it was asked to be ordered. I will try and send urine osmolality from the urine that was sent to the lab yesterday prior to starting 3% saline. I will repeat another serum sodium in about 4 hours and we will continue to monitor the sodium level. 2. Hypertension. Blood pressure has been borderline. He has been maintained on IV labetalol p.r.n. Once the patient is more awake, we can add a scheduled dose of an oral antihypertensive medication. 3. History of schizophrenia. 4. History of type 2 diabetes. 5. Recent cellulitis of the second digit on the left hand. Thank you for this consultation. We will continue to follow the patient with you during his hospitalization. MMODL / IJN: [id number] /
[2019-03-30] MEDS ORDERED: SODIUM CHLORIDE 3%(HYPERTONIC) 500 ML IV SCH (23:45)
[2019-03-31 00:12] LABS: Glucose,Whole Blood 104 mg/dL (75-99)
[2019-03-31 05:15] LABS: HCT 38.9 % (39.0-53.0); HGB 13.2 gm/dL (13.0-17.5); MCH 29.6 pg (25.0-35.0); Platelet Count 281 k/uL (150-450); RBC 4.47 m/uL (4.30-5.90); RDW 13.2 % (11.5-15.5); WBC 20.1 k/uL (3.8-10.6)
[2019-03-31 05:31] LABS: African American GFR (CKD) >90 (>60 ml/min/1.73 sqM); Anion Gap 7 mmol/L; Blood Urea Nitrogen 10 mg/dL (9-20); Calcium 8.1 mg/dL (8.4-10.2); Carbon Dioxide 31 mmol/L (22-30); Chloride 81 mmol/L (98-107); Glucose 92 mg/dL (74-99); Magnesium 1.9 mg/dL (1.6-2.3); Non-African American GFR(CKD) >90 (>60 ml/min/1.73 sqM); Potassium 5.2 mmol/L (3.5-5.1)
[2019-03-31] MEDS: AMPICILLIN-SULBACTAM 3 GM in SODIUM CHLORIDE 0.9% 100 ML IVPB SCH ×4 (05:33→23:35)
[2019-03-31 05:38] LABS: Sodium 119 mmol/L (137-145)
[2019-03-31 05:54] LABS: Band Neutrophils % 1 %; Lymphocytes # (M) 5.43 k/uL (1.0-4.8); Monocytes # (M) 1.81 k/uL (0-1.0); Myelocytes % 1 %; Neutrophils % (M) 63 %; Nucleated Red Blood Cells 0 /100 WBC (0-0); Total Cells Counted 200
[2019-03-31] MEDS: MAGNESIUM SULFATE-D5W PMX 1 GM in DEXTROSE/WATER 1 100ML.BAG IVPB SCH ×2 (06:20→07:57)
[2019-03-31 06:37] LABS: Glucose,Whole Blood 92 mg/dL (75-99)
[2019-03-31] MEDS: IPRATROPIUM-ALBUTEROL 3 ML NEB INHALATION PRN ×3 (07:49→20:06)
[2019-03-31] MEDS: BUDESONIDE 0.5 MG/2 ML NEBU INHALATION SCH ×2 (07:49→20:06)
[2019-03-31] MEDS: ENOXAPARIN 40 MG/0.4 ML SYRINGE SQ SCH (07:53)
[2019-03-31] MEDS: PANTOPRAZOLE 40 MG/10 ML VIAL IV SCH (07:53)
--- NOTE | 2019-03-31 08:09 | XR ---
EXAMINATION TYPE: XR chest 1V portable DATE OF EXAM: 03/31/2019 Comparison: 03/30/2019 Clinical History: 63 year-old male shortness of breath Findings: Heart mildly enlarged. Mild interstitial prominence. Similar right hilar prominence and focal opacity right base. Impression: Possible underlying mild pulmonary vascular congestion. Right hilar masslike prominence and persisten t right basilar opacity. If this is a persistent finding despite treatment, underlying neoplasm is no t excluded.
[2019-03-31] MEDS ORDERED: methylPREDNISolone SOD SUCCI 40 MG/ML 1 ML VIAL IV SCH ×2 (11:30→20:00)
--- NOTE | 2019-03-31 11:30 | XR ---
EXAMINATION TYPE: XR chest 1V portable DATE OF EXAM: 03/31/2019 Comparison: Earlier today Clinical History: 63 year-old male shortness of breath Findings: Lung volumes have diminished compared to prior. Heart remains borderline in size with mild diffuse in terstitial prominence. Focal right basilar opacity is increased. Right infrahilar density is now obsc ured. Impression: Correlate for possible mild pulmonary vascular congestion, similar to prior. Otherwise, there are now hypoventilatory changes. Opacity at the right base shows slight increase now with obscuration of the previous right infrahilar opacity.
[2019-03-31 12:05] LABS: Glucose,Whole Blood 99 mg/dL (75-99)
--- NOTE | 2019-03-31 13:28 | P.PN ---
Subjective Progress Note Date: 03/31/19 Principal diagnosis: 63-year-old male with known history of hypertension schizophrenia came in completely confused, altered mental status. patient is unable to provide any history to me patient as he is excessively drowsy but able to wake up with verbal stimuli. But unable to provide any history. Patient is found to be severely hyponatremic also found to have aspiration pneumonia. Patient does have significant leukocytosis. Patient in the past was treated for hypovolemic as was hypovolemic hyponatremia. Patient serum sodium is extremely low at 113 on 3% saline to 117. Nephrology is following the patient I did order urine osmolality, serum osmolality urine random sodium urine didn't random creatinine urinary uric acid although these labs will not be reliable because as patient is already on saline now. 03/31/2019 Patient is currently in the ICU being closely monitored with a director of public safety at the bedside. Patient continues to be confused and quite lethargic. Per sitter, patient occasionally tries to get up out of the bed but is not coherent as to what he is doing. Patient continues to fall asleep when talking with the patient but is arousable to voice. Current sodium is 121. Nephrology is following. White blood count has also improved slightly and is trending down and is currently 20.1. Today's chest x-ray shows possible underlying mild pulmonary vascular congestion with the right hilar masslike prominence and persistent right basilar obesity. Objective - Vital Signs Vital signs: Vital Signs Temp 98.5 F 03/31/19 04:00 Pulse 100 03/31/19 12:08 Resp 15 03/31/19 07:00 BP 140/80 03/31/19 07:00 Pulse Ox 95 03/31/19 07:52 Intake & Output 03/30/19 03/31/19 03/31/19 18:59 06:59 18:59 Intake Total 300 250 25 Output Total 665 780 75 Balance -365 -530 -50 Weight 114.2 kg Intake: IV 300 250 25 Magnesium Sulfate-D5w Pmx 100 1 gm In Dextrose/Water 1 100ml.bag @ 100 mls/hr IVPB Q1H [facility] Rx#: [id number] NS @ 10mls/hr 80 130 10 Sodium Chloride 3%( 120 15 Hypertonic) 500 ml @ 15 mls/hr IV .Q24H [facility] Rx#: [id number] Sodium Chloride 3%( 120 Hypertonic) 500 ml @ 20 mls/hr IV .Q24H [facility] Rx#: [id number] Output: Urine 665 780 75 Other: Voiding Method Indwelling Catheter Indwelling Catheter - Exam GENERAL: Excessively sleepy, arousable with verbal stimuli, severely lethargic HEENT: Pupils are round and equally reacting to light. EOMI. No scleral icterus. No conjunctival pallor. Normocephalic, atraumatic. No pharyngeal erythema. No thyromegaly. CARDIOVASCULAR: S1 and S2 present. No murmurs, rubs, or gallops. PULMONARY: Lung sounds diminished at the bases with a few scattered crackles noted ABDOMEN: Soft, obese, nontender, nondistended, normoactive bowel sounds. No palp able organomegaly. MUSCULOSKELETAL: No joint swelling or deformity. EXTREMITIES: No cyanosis, clubbing, or pedal edema. NEUROLOGICAL: Extremely lethargic but arousable with verbal stimuli and able to follow simple commands SKIN: No rashes. - Labs CBC & Chem 7: 03/31/19 04:53 03/31/19 11:18 Labs: Abnormal Lab Results - Last 24 Hours (Table) 03/30/19 03/30/19 03/30/19 Range/Units 13:43 16:32 16:58 WBC (3.8-10.6) k/uL Hct (39.0-53.0) % Neutrophils # (Manual) (1.3-7.7) k/uL Lymphocytes # (Manual) (1.0-4.8) k/uL Monocytes # (Manual) (0-1.0) k/uL Myelocytes # (Manual) (0) k/uL Sodium 116 L* 116 L* (137-145) mmol/L Potassium (3.5-5.1) mmol/L Chloride (98-107) mmol/L Carbon Dioxide (22-30) mmol/L Creatinine (0.66-1.25) mg/dL POC Glucose (mg/dL) 106 H (75-99) mg/dL Calcium (8.4-10.2) mg/dL 03/30/19 03/31/19 03/31/19 Range/Units 21:49 00:01 02:42 WBC (3.8-10.6) k/uL Hct (39.0-53.0) % Neutrophils # (Manual) (1.3-7.7) k/uL Lymphocytes # (Manual) (1.0-4.8) k/uL Monocytes # (Manual) (0-1.0) k/uL Myelocytes # (Manual) (0) k/uL Sodium 117 L* 118 L* (137-145) mmol/L Potassium (3.5-5.1) mmol/L Chloride (98-107) mmol/L Carbon Dioxide (22-30) mmol/L Creatinine (0.66-1.25) mg/dL POC Glucose (mg/dL) 104 H (75-99) mg/dL Calcium (8.4-10.2) mg/dL 03/31/19 03/31/19 03/31/19 Range/Units 04:53 04:53 08:30 WBC 20.1 H (3.8-10.6) k/uL Hct 38.9 L (39.0-53.0) % Neutrophils # (Manual) 12.80 H (1.3-7.7) k/uL Lymphocytes # (Manual) 5.43 H (1.0-4.8) k/uL Monocytes # (Manual) 1.81 H (0-1.0) k/uL Myelocytes # (Manual) 0.20 H (0) k/uL Sodium 119 L* 120 L (137-145) mmol/L Potassium 5.2 H (3.5-5.1) mmol/L Chloride 81 L (98-107) mmol/L Carbon Dioxide 31 H (22-30) mmol/L Creatinine 0.57 L (0.66-1.25) mg/dL POC Glucose (mg/dL) (75-99) mg/dL Calcium 8.1 L (8.4-10.2) mg/dL 03/31/19 Range/Units 11:18 WBC (3.8-10.6) k/uL Hct (39.0-53.0) % Neutrophils # (Manual) (1.3-7.7) k/uL Lymphocytes # (Manual) (1.0-4.8) k/uL Monocytes # (Manual) (0-1.0) k/uL Myelocytes # (Manual) (0) k/uL Sodium 121 L (137-145) mmol/L Potassium (3.5-5.1) mmol/L Chloride (98-107) mmol/L Carbon Dioxide (22-30) mmol/L Creatinine (0.66-1.25) mg/dL POC Glucose (mg/dL) (75-99) mg/dL Calcium (8.4-10.2) mg/dL Microbiology - Last 24 Hours (Table) 03/29/19 16:50 Blood Culture - Preliminary Blood No Growth after 24 hours Assessment and Plan Assessment: -Severe hyponatremia: Multifactorial there may be a component of psychogenic polydipsia, SIADH from medications as well as hypovolemia. Patient will be continued on 3% saline. Current sodium is 121 -Possible aspiration pneumonia patient will be started on Unasyn. -Severe metabolic encephalopathy from hyponatremia -Type 2 diabetes mellitus -Schizophrenia -Nicotine abuse for above-mentioned chronic medical problems patient will be resumed on appropriate home medications whenever he can tolerate oral medications. Speech therapy was consulted because of his mental status to assess if he can actually swallow
--- NOTE | 2019-03-31 13:41 | P.PN ---
Subjective Progress Note Date: 03/31/19 Principal diagnosis: Hyponatremia and metabolic encephalopathy. This is a 63-year-old white male, poor historian, known history of schizophrenia, hypertension, patient is on multiple psychiatric medications, presented to the ER with mostly mental status change and worsening confusion. Patient was found to have extremely low sodium of 111, and his chest x-ray is suggestive of right lower lobe aspiration pneumonia. Patient was noted to have leukocytosis, he was noted to be hypovolemic clinically, and patient was initially started on 3% saline his repeat serum sodium today is 117. Nephrology has the patient on consultation, urine and serum osmolalities are pending. Cons idering the patient was admitted to the ICU and he was placed on 3% hypertonic saline, I was asked to see him on consultation. However upon my evaluation of the patient, he seems to be confused, in no form of respiratory distress, and no further information could be obtained from the patient himself. No family members at bedside. Reevaluated today on 03/31/2019, patient remains in the ICU, his pulmonary status is rather marginal. Patient is not doing well with incentive spirometry, and he does not follow instructions as far as deep coughing and deep breathing and clearing secretions. He does sound wet, and crackly, but the patient does not cough to clear his secretions. Chest x-ray showed mild pulmonary vascular congestion, and right lower lobe atelectasis, possibly right sided pneumonia. Sodium today is up to 121. His renal profile is normal BUN is 10 and creatinine 0.57. WBC count is 20.1. Remains on antibiotics for presumptive aspiration. Patient was seen by nephrology yesterday, and he was felt to have hypovolemic hyponatremia. Patient continues to have a injury/safety hazard assessment at bedside. And he continues to be confused, and lethargic. At times he tries to get out of bed, and he is not coherent. Objective - Vital Signs Vital signs: Vital Signs Temp 98.5 F 03/31/19 04:00 Pulse 100 03/31/19 12:08 Resp 15 03/31/19 07:00 BP 140/80 03/31/19 07:00 Pulse Ox 95 03/31/19 07:52 Intake & Output 03/30/19 03/31/19 03/31/19 18:59 06:59 18:59 Intake Total 300 250 25 Output Total 665 780 75 Balance -365 -530 -50 Weight 114.2 kg Intake: IV 300 250 25 Magnesium Sulfate-D5w Pmx 100 1 gm In Dextrose/Water 1 100ml.bag @ 100 mls/hr IVPB Q1H [facility] Rx#: [id number] NS @ 10mls/hr 80 130 10 Sodium Chloride 3%( 120 15 Hypertonic) 500 ml @ 15 mls/hr IV .Q24H [facility] Rx#: [id number] Sodium Chloride 3%( 120 Hypertonic) 500 ml @ 20 mls/hr IV .Q24H [facility] Rx#: [id number] Output: Urine 665 780 75 Other: Voiding Method Indwelling Catheter Indwelling Catheter - Exam Physical Exam: Physical examination revealed a 63-year-old white male confused, in no distress. Seems to be sleepy and lethargic. But arousable does not fo llow instructions., Head: Atraumatic normocephalic. HEENT:[Neck is supple.] [No neck masses.] [No thyromegaly.] [No JVD.] PERRLA, EOMI, dry mucous membranes noted. No icterus. Chest: [Symmetrical expansion, diffuse rhonchi and wheezes, unable to clear secretions, does not cough vigorously. Cardiac Exam: [Normal S1 and S2, no S3 gallop, no murmur.] Abdomen: Obese, [Soft, nontender, no megaly, no rebound, no guarding, normal bowel sounds.] Extremities: [No clubbing, no edema, no cyanosis.] Neurological Exam: Lethargic, arousable confused, incoherent, does not follow instructions. Psychiatric: Calm, blunt affect, poor mental status examination. Skin: No rashes. - Labs CBC & Chem 7: 03/31/19 04:53 03/31/19 11:18 Labs: Abnormal Lab Results - Last 24 Hours (Table) 03/30/19 03/30/19 03/30/19 Range/Units 13:43 16:32 16:58 WBC (3.8-10.6) k/uL Hct (39.0-53.0) % Neutrophils # (Manual) (1.3-7.7) k/uL Lymphocytes # (Manual) (1.0-4.8) k/uL Monocytes # (Manual) (0-1.0) k/uL Myelocytes # (Manual) (0) k/uL Sodium 116 L* 116 L* (137-145) mmol/L Potassium (3.5-5.1) mmol/L Chloride (98-107) mmol/L Carbon Dioxide (22-30) mmol/L Creatinine (0.66-1.25) mg/dL POC Glucose (mg/dL) 106 H (75-99) mg/dL Calcium (8.4-10.2) mg/dL 03/30/19 03/31/19 03/31/19 Range/Units 21:49 00:01 02:42 WBC (3.8-10.6) k/uL Hct (39.0-53.0) % Neutrophils # (Manual) (1.3-7.7) k/uL Lymphocytes # (Manual) (1.0-4.8) k/uL Monocytes # (Manual) (0-1.0) k/uL Myelocytes # (Manual) (0) k/uL Sodium 117 L* 118 L* (137-145) mmol/L Potassium (3.5-5.1) mmol/L Chloride (98-107) mmol/L Carbon Dioxide (22-30) mmol/L Creatinine (0.66-1.25) mg/dL POC Glucose (mg/dL) 104 H (75-99) mg/dL Calcium (8.4-10.2) mg/dL 03/31/19 03/31/19 03/31/19 Range/Units 04:53 04:53 08:30 WBC 20.1 H (3.8-10.6) k/uL Hct 38.9 L (39.0-53.0) % Neutrophils # (Manual) 12.80 H (1.3-7.7) k/uL Lymphocytes # (Manual) 5.43 H (1.0-4.8) k/uL Monocytes # (Manual) 1.81 H (0-1.0) k/uL Myelocytes # (Manual) 0.20 H (0) k/uL Sodium 119 L* 120 L (137-145) mmol/L Potassium 5.2 H (3.5-5.1) mmol/L Chloride 81 L (98-107) mmol/L Carbon Dioxide 31 H (22-30) mmol/L Creatinine 0.57 L (0.66-1.25) mg/dL POC Glucose (mg/dL) (75-99) mg/dL Calcium 8.1 L (8.4-10.2) mg/dL 03/31/19 Range/Units 11:18 WBC (3.8-10.6) k/uL Hct (39.0-53.0) % Neutrophils # (Manual) (1.3-7.7) k/uL Lymphocytes # (Manual) (1.0-4.8) k/uL Monocytes # (Manual) (0-1.0) k/uL Myelocytes # (Manual) (0) k/uL Sodium 121 L (137-145) mmol/L Potassium (3.5-5.1) mmol/L Chloride (98-107) mmol/L Carbon Dioxide (22-30) mmol/L Creatinine (0.66-1.25) mg/dL POC Glucose (mg/dL) (75-99) mg/dL Calcium (8.4-10.2) mg/dL Microbiology - Last 24 Hours (Table) 03/29/19 16:50 Blood Culture - Preliminary Blood No Growth after 24 hours Assessment and Plan Assessment: Impression: Severe hyponatremia, possible SIADH. Could be related to his psychiatric medications. Mental status change, acute metabolic encephalopathy secondary to hyponatremia History of type 2 diabetes. History of schizophrenia History of nicotine dependence syndrome. Possible right lower lobe aspiration pneumonia. May consider a CT of the chest if it does not improve just to rule out underlying mass. Although this is felt to be less likely. Recommendation: Continue to monitor the patient in the ICU. Continue to correct his low-sodium extremely slowly hopefully less than 12 mEq in the next 24 hours. Continue antibiotics for presumptive aspiration pneumonia patient is presently on Unasyn. Monitor sodium closely, check serum osmolality and urine osmolality as well as urine sodium. Placed on bronchodilators, and on Solu-Medrol for his rhonchi and wheezing today. We'll continue to follow. Time with Patient: Less than 30
--- NOTE | 2019-03-31 15:50 | PN ---
PROGRESS NOTE Patient is seen for followup for hyponatremia. Patient was restarted on 3% saline yesterday. His sodium is slowly increasing. It was up to 120 this morning. Patient's mentation is slightly improved. However, he still remains quite lethargic and falls back to sleep. PHYSICAL EXAMINATION: On examination today, blood pressure is 140/80, heart rate 100 per minute. He is afebrile. EXAMINATION OF THE HEART: S1 and S2. EXAMINATION OF LUNGS: Bilateral breath sounds are heard. ABDOMEN: Soft, non-tender and obese. Examination of lower extremities shows no significant edema. LITERACY EDUCATION PROFESSOR exam shows patient moving all 4 extremities. He is lethargic. Mentation slightly better than yesterday. However, he is still quite weak and falls back to sleep. LABS: Sodium 120 this morning, potassium 5.2, chloride 81. CO2 is 31, BUN 10, creatinine 0.57, magnesium 1.9. ASSESSMENT: 1. Hyponatremia; appears to be hypovolemic; however, patient has had euvolemic hyponatremia previously in December which has responded well to Samsca. Since his sodium is up to 121, I will discontinue the 3% saline and we will try a normal saline challenge. Urine osmolality was not significantly elevated, but slightly on the higher side at 372. 2. Encephalopathy, mostly metabolic. 3. Hypertension, maintained on IV labetalol, as patient is not able to tolerate p.o. intake. PLAN: Discontinue 3% saline. Add normal saline challenge, and if patient is able to take p.o., we may need to give him Samsca as we did in December of 2018. MMODL / IJN: [id number] /
[2019-03-31] MEDS: SODIUM CHLORIDE 0.9% 1,000 ML IV SCH (15:52)
[2019-03-31] MEDS ORDERED: MORPHINE SULFATE 4 MG/ML SYRINGE IVP STA ×2 (17:17→18:43)
[2019-03-31] MEDS ORDERED: SUCCINYLCHOLINE CHLORIDE VIAL 200 MG/10 ML VIAL IV ONE (17:17)
[2019-03-31] MEDS: PROPOFOL 1,000 MG in EMPTY BAG 1 BAG IV SCH ×3 (17:30→23:32)
[2019-03-31] MEDS: NOREPINEPHRINE 4 MG in SODIUM CHLORIDE 0.9% 250 ML IV SCH (17:40)
[2019-03-31 18:04] LABS: ABG Base Excess 3.8 mmol/L; ABG HCO3 31 mmol/L (21-25); ABG Oxygen Saturation 99.8 % (94-97); ABG PH 7.24 (7.35-7.45); ABG PO2 384 mmHg (83-108); ABG TCO2 33 mmol/L (19-24); Allen Test Performed? Yes
[2019-03-31 18:05] LABS: ABG PCO2 73 mmHg (35-45)
--- NOTE | 2019-03-31 18:23 | XR ---
EXAMINATION: XR chest 1V portable DATE AND TIME: 03/31/2019 5:54 PM CLINICAL INDICATION: PHH; Tube placement TECHNIQUE: AP portable supine COMPARISON: 03/31/2019 radiograph at 10:52 AM FINDINGS: Since the prior study the patient has been intubated, and the ET tube tip is superimposed o donna the mid trachea. Also, an NG tube is in place which courses over the expected position of the tho racic esophagus and visualized stomach. Right IJ central line is in place, with its tip superimposed over the expected position of the cavoatrial junction. The film is rotated RPO. The lungs appear to be clear bilaterally, although the right hemidiaphragm is elevated and, therefore , the right lung base cannot be evaluated. Right hemidiaphragm diaphragm was elevated on the prior st udy. There is no pneumothorax or other abnormal gas collection evident, but supine radiography cannot excl ude abnormal gas collections. The enlarged cardiac silhouette redemonstrated, unchanged. IMPRESSION: POST INTUBATION CHEST RADIOGRAPH.
[2019-03-31 18:34] LABS: Glucose,Whole Blood 117 mg/dL (75-99)
[2019-03-31] MEDS ORDERED: PROPOFOL 10 MG/ML 20 ML VIAL IV ONE (18:45)
[2019-03-31] MEDS: CHLORHEXIDINE GLUCONATE 15 ML CUP MUCOUS MEM SCH (19:48)
--- NOTE | 2019-03-31 20:48 | OP ---
OPERATIVE REPORT OPERATIVE REPORT: Placement of right IJ triple-lumen catheter. PREOPERATIVE DIAGNOSIS: Acute hypoxic respiratory failure requiring intubation and mechanical ventilation, no adequate venous access. POSTOPERATIVE DIAGNOSIS: Acute hypoxic respiratory failure requiring intubation and mechanical ventilation, no adequate venous access. ANESTHESIA USED: Lidocaine 1%, 2 mL. PROCEDURE DESCRIPTION: The patient was placed in a Trendelenburg position. The area of the right cervical region was prepared in a sterile fashion and drapes were applied. The area behind the posterior belly of the sternocleidomastoid was anesthetized. Then the right internal jugular vein was easily cannulated and a guidewire was placed. The area was dilated with the dilator over the guidewire. Then a triple-lumen catheter was inserted over the guidewire and the guidewire was removed. Good blood flow was noted in the 3 different ports of the triple-lumen catheter. Line was secured using 3.0 silk sutures. Chest x-ray postoperatively showed adequate placement of the triple-lumen catheter. Again, no evidence of any immediate complications. MMODL / IJN: [id number] /
--- NOTE | 2019-03-31 20:48 | OP ---
OPERATIVE REPORT OPERATIVE REPORT: Intubation/endotracheal intubation. PREOPERATIVE DIAGNOSIS: Acute respiratory failure secondary to chronic obstructive pulmonary disease exacerbation. POSTOPERATIVE DIAGNOSIS: Acute respiratory failure secondary to chronic obstructive pulmonary disease exacerbation. ANESTHESIA USED: Patient was given, prior to intubation, 4 mg of morphine, 100 mg of propofol, and 100 mg of succinylcholine. PROCEDURE DESCRIPTION: The patient was placed in a supine position. After adequate anesthesia, the tongue was depressed, using a GlideScope. There was direct visualization of the vocal cords. Then a size 8.0 endotracheal tube was inserted through the vocal cords distally and in the subglottic area, the cuff was inflated. There was color change. There were good breath sounds bilaterally. The cuff was inflated. The endotracheal tube was connected to mechanical ventilation. Procedure was well tolerated. No evidence of any immediate complications. Chest x-ray postoperatively showed adequate placement of the endotracheal tube. This procedure was done on emergency basis; no family members or legal guardian available for this patient. MMODL / IJN: [id number] /
--- NOTE | 2019-03-31 20:54 | OP ---
OPERATIVE REPORT OPERATIVE REPORT: Placement of right brachial arterial line. PREOPERATIVE DIAGNOSIS: Acute respiratory failure, hypotension post intubation. PROCEDURE DESCRIPTION: The right brachial region was prepared in a sterile fashion. Drapes were applied. The right brachial artery was palpated, cannulated, and a guidewire was placed. A Cook's catheter was inserted over the guidewire and the guidewire was removed. Good blood flow, good waveform noted. No evidence of any immediate complications. Line was secured using 3.0 silk sutures. MMODL / IJN: [id number] /
[2019-03-31] MEDS: methylPREDNISolone SOD SUCCI 40 MG/ML 1 ML VIAL IV SCH (23:33)
[2019-04-01 00:39] LABS: Glucose,Whole Blood 101 mg/dL (75-99)
[2019-04-01] MEDS: NOREPINEPHRINE 4 MG in SODIUM CHLORIDE 0.9% 250 ML IV SCH ×2 (00:47→18:12)
[2019-04-01] MEDS: AMPICILLIN-SULBACTAM 3 GM in SODIUM CHLORIDE 0.9% 100 ML IVPB SCH ×3 (05:50→17:04)
[2019-04-01] MEDS: methylPREDNISolone SOD SUCCI 40 MG/ML 1 ML VIAL IV SCH ×3 (05:50→17:04)
[2019-04-01 06:10] LABS: African American GFR (CKD) >90 (>60 ml/min/1.73 sqM); Anion Gap 7 mmol/L; Blood Urea Nitrogen 13 mg/dL (9-20); Calcium 8.5 mg/dL (8.4-10.2); Carbon Dioxide 30 mmol/L (22-30); Chloride 89 mmol/L (98-107); Glucose 107 mg/dL (74-99); Magnesium 2.2 mg/dL (1.6-2.3); Non-African American GFR(CKD) >90 (>60 ml/min/1.73 sqM); Potassium 4.9 mmol/L (3.5-5.1); Sodium 126 mmol/L (137-145)
[2019-04-01 06:25] LABS: Basophils # (A) 0.1 k/uL (0-0.2); Basophils % (A) 1 %; Eosinophils % (A) 0 %; HGB 12.5 gm/dL (13.0-17.5); Lymphocytes # (A) 2.9 k/uL (1.0-4.8); Lymphocytes % (A) 17 %; MCH 28.8 pg (25.0-35.0); MCHC 32.9 g/dL (31.0-37.0); MCV 87.6 fL (80.0-100.0); Mean Platelet Volume 7.6; Monocytes # (A) 1.1 k/uL (0-1.0); Monocytes % (A) 6 %; Neutrophils # (A) 12.7 k/uL (1.3-7.7); Neutrophils % (A) 74 %; Platelet Count 256 k/uL (150-450); RBC 4.34 m/uL (4.30-5.90); RDW 13.3 % (11.5-15.5); WBC 17.3 k/uL (3.8-10.6)
[2019-04-01 06:30] LABS: Glucose,Whole Blood 109 mg/dL (75-99)
[2019-04-01] MEDS ORDERED: FUROSEMIDE 10 MG/ML 2 ML VIAL IV ONE (06:57)
[2019-04-01 07:08] LABS: ABG Base Excess 7.8 mmol/L; ABG HCO3 31 mmol/L (21-25); ABG Oxygen Saturation 98.7 % (94-97); ABG PCO2 43 mmHg (35-45); ABG PH 7.47 (7.35-7.45); ABG PO2 101 mmHg (83-108); ABG TCO2 33 mmol/L (19-24); Allen Test Performed? Yes
[2019-04-01] MEDS: BUDESONIDE 0.5 MG/2 ML NEBU INHALATION SCH ×2 (08:15→22:08)
[2019-04-01] MEDS: IPRATROPIUM-ALBUTEROL 3 ML NEB INHALATION PRN ×4 (08:15→22:08)
--- NOTE | 2019-04-01 08:32 | XR ---
EXAMINATION TYPE: XR chest 1V portable DATE OF EXAM: 04/01/2019 COMPARISON: 03/31/2019 INDICATION: Tube placement TECHNIQUE: Single frontal view of the chest is obtained. FINDINGS: The heart size is normal. The pulmonary vasculature is normal. Mild right lower lobe infiltrate is present. This may be improving. There is elevation of the right d iaphragm. Some mild left lower lobe subsegmental atelectasis may be developing. Right central venous catheter is present with the tip in the right atrium. Endotracheal tube has tip above the razia. Nasogastric tube transverses the thorax with tip in the proximal left upper quadra nt of the abdomen. IMPRESSION: 1. Improving right lower lobe infiltrate. Developing left lower lobe subsegmental atelectasis may be present. 2. Lines and catheters discussed above.
[2019-04-01] MEDS: PANTOPRAZOLE 40 MG/10 ML VIAL IV SCH (08:36)
[2019-04-01] MEDS: CHLORHEXIDINE GLUCONATE 15 ML CUP MUCOUS MEM SCH ×2 (08:36→21:54)
[2019-04-01] MEDS: ENOXAPARIN 40 MG/0.4 ML SYRINGE SQ SCH (08:37)
--- NOTE | 2019-04-01 11:38 | PN ---
PROGRESS NOTE Patient is seen for followup for hyponatremia which was initially hypovolemic; however, patient was hypervolemic yesterday. He has been maintained on 3% saline secondary to encephalopathy and significant altered mentation. His mentation seemed to have improved over the last couple of days with improvement in serum sodium level. However, yesterday patient was quite hypoxic and was eventually intubated. The 3% saline which was running at about 15 mL an hour was discontinued and currently patient is not on any IV fluids. His chest x-ray prior to intubation did show evidence of pulmonary vascular congestion. PHYSICAL EXAMINATION: On examination today, patient is intubated, sedated. Blood pressure was 100/85, heart rate 66 per minute, he is afebrile. Examination of the heart S1, S2. Examination of the lungs, decreased breath sounds at the bases. Abdomen is soft, nontender. Examination of the lower extremities shows no significant edema. STORE STOCKER exam cannot be performed. LABS: Sodium 126 this morning, chloride 89, magnesium of 2.2. ASSESSMENT: 1. Hyponatremia currently hypervolemic, status post 3% saline. I will give a dose of IV Lasix and repeat sodium this evening. Continue off IV fluids for now. Initially on admission patient was hypovolemic. Urine osmolality was 372 on initial admission. 2. Altered mentation associated with electrolyte imbalance and with improvement noted with improving sodium levels. 3. Hypoxic respiratory failure, status post intubation yesterday with possible right lower lobe aspiration pneumonia. PLAN: Continue off IV fluids. Lasix x1. Continue to monitor serum sodium periodically. The patient was hyponatremic on his previous admission in December. At that time, the urine osmolality was significantly elevated at 721 and 449, suggestive of underlying SIADH. However, on this admission, serum sodium had improved with normal saline, which goes against SIADH. However, still agree with plans to further look at the lungs in detail with a CT of the chest. MMODL / IJN: [id number] /
[2019-04-01] MEDS: SODIUM CHLORIDE 0.9% 1,000 ML IV SCH (12:25)
[2019-04-01 12:42] LABS: Glucose,Whole Blood 116 mg/dL (75-99)
[2019-04-01] MEDS: PROPOFOL 1,000 MG in EMPTY BAG 1 BAG IV SCH ×4 (13:08→21:51)
--- NOTE | 2019-04-01 13:13 | P.PN ---
Subjective Progress Note Date: 04/01/19 Principal diagnosis: Hyponatremia and metabolic encephalopathy. This is a 63-year-old white male, poor historian, known history of schizophrenia, hypertension, patient is on multiple psychiatric medications, presented to the ER with mostly mental status change and worsening confusion. Patient was found to have extremely low sodium of 111, and his chest x-ray is suggestive of right lower lobe aspiration pneumonia. Patient was noted to have leukocytosis, he was noted to be hypovolemic clinically, and patient was initially started on 3% saline his repeat serum sodium today is 117. Nephrology has the patient on consultation, urine and serum osmolalities are pending. Cons idering the patient was admitted to the ICU and he was placed on 3% hypertonic saline, I was asked to see him on consultation. However upon my evaluation of the patient, he seems to be confused, in no form of respiratory distress, and no further information could be obtained from the patient himself. No family members at bedside. Reevaluated today on 03/31/2019, patient remains in the ICU, his pulmonary status is rather marginal. Patient is not doing well with incentive spirometry, and he does not follow instructions as far as deep coughing and deep breathing and clearing secretions. He does sound wet, and crackly, but the patient does not cough to clear his secretions. Chest x-ray showed mild pulmonary vascular congestion, and right lower lobe atelectasis, possibly right sided pneumonia. Sodium today is up to 121. His renal profile is normal BUN is 10 and creatinine 0.57. WBC count is 20.1. Remains on antibiotics for presumptive aspiration. Patient was seen by nephrology yesterday, and he was felt to have hypovolemic hyponatremia. Patient continues to have a public safety telecommunicator at bedside. And he continues to be confused, and lethargic. At times he tries to get out of bed, and he is not coherent. Reevaluated today on 04/01/2019, patient deteriorated yesterday significantly. Around 5:00 yesterday, patient developed hypoxic and hypercapnic respiratory failure, I happened to be in the ICU at the time, patient was on nonrebreather mask, and when I assessed him, he was extremely difficult to arouse. Could not be aroused, and he had significant amount of wheezing. And he was using his accessory muscles to breathe. Hence intubated the patient immediately, placed on mechanical ventilation, and placed on propofol overnight. He was placed on bronchodilators, steroids. And reevaluated today. Chest x-ray is showing improvement in his right lower lobe pneumonia and atelectasis. His ventilator settings are assist control rate of 20, tidal volume of 500, FiO2 is 50% and PEEP of 5. Propofol is at 50 mcg/kg/m. Not requiring any pressors. ABG this morning showed a pO2 of 101 pCO2 of 43 pH of 7.47. Sodium is up to 127 today. WBC count is 17.3 hemoglobin is 12.5. Renal functioning is normal. Blood cultures are negative so far. Sputum cultures are pending. Patient remains on Unasyn, bronchodilators, Lovenox, methylprednisolone for his COPD exacerbation, he is also on GI and DVT prophylaxis. Patient is on Lovenox. Objective - Vital Signs Vital signs: Vital Signs Temp 97.7 F 04/01/19 08:00 Pulse 66 04/01/19 11:13 Resp 20 04/01/19 11:13 BP 100/85 04/01/19 11:00 Pulse Ox 98 04/01/19 11:00 Intake & Output 03/31/19 04/01/19 04/01/19 18:59 06:59 18:59 Intake Total 391.888 492.964 30 Output Total 545 1305 400 Balance -153.112 -812.036 -370 Weight 115 kg Intake: IV 375 345 30 Ampicillin-Sulbactam 3 gm 100 200 In Sodium Chloride 0.9% 100 ml @ 200 mls/hr IVPB Q6HR [facility] Rx#:[id number] NS @ 10mls/hr 110 130 30 Sodium Chloride 3%( 15 Hypertonic) 500 ml @ 15 mls/hr IV .Q24H [facility] Rx#: [id number] Sodium Chloride 3%( 150 15 Hypertonic) 500 ml @ 15 mls/hr IV .Q24H [facility] Rx#: [id number] Intake, IV Titration 16.888 147.964 Amount Norepinephrine 4 mg In 9.065 Sodium Chloride 0.9% 250 ml @ 0.05 MCG/KG/MIN 21. 755 mls/hr IV .[id number] [facility] Rx#:[id number] Propofol 1,000 mg In 7.823 147.964 Empty Bag 1 bag @ Titrate IV .Q0M [facility] Rx#: [id number] Output: Urine 545 1305 400 Other: Voiding Method Indwelling Catheter Indwelling Catheter Indwelling Catheter ABP, PAP, CO, CI - Last Documented Arterial Blood Pressure 114/59 - Exam Physical Exam: Physical examination revealed a 63-year-old white male, intubated, mechanically ventilated, sedated, on propofol., Head: Atraumatic normocephalic. Endotracheal tube and orogastric tube are int act HEENT:[Neck is supple.] [No neck masses.] [No thyromegaly.] [No JVD.] PERRLA, EOMI, dry mucous membranes noted. No icterus. Chest: [Symmetrical expansion, minimal wheezing noted bilaterally, significantly improved compared to yesterday prior to intubation. Cardiac Exam: [Normal S1 and S2, no S3 gallop, no murmur.] Abdomen: Obese, [Soft, nontender, no megaly, no rebound, no guarding, normal bowel sounds.] Extremities: [No clubbing, no edema, no cyanosis.] Neurological Exam: Cannot be assessed, patient is sedated on propofol. Psychiatric: Cannot be assessed. Skin: Healing skin laceration noted in the left index finger. Related to recent abscess - Labs CBC & Chem 7: 04/01/19 05:30 04/01/19 10:35 Labs: Abnormal Lab Results - Last 24 Hours (Table) 03/31/19 03/31/19 03/31/19 Range/Units 18:00 18:23 18:25 WBC (3.8-10.6) k/uL Hgb (13.0-17.5) gm/dL Hct (39.0-53.0) % Neutrophils # (1.3-7.7) k/uL Monocytes # (0-1.0) k/uL ABG pH 7.24 L (7.35-7.45) ABG pCO2 73 H* (35-45) mmHg ABG pO2 384 H (83-108) mmHg ABG HCO3 31 H (21-25) mmol/L ABG Total CO2 33 H (19-24) mmol/L ABG O2 Saturation 99.8 H (94-97) % Sodium 124 L (137-145) mmol/L Chloride (98-107) mmol/L Glucose (74-99) mg/dL POC Glucose (mg/dL) 117 H (75-99) mg/dL 03/31/19 04/01/19 04/01/19 Range/Units 23:00 00:27 05:30 WBC 17.3 H (3.8-10.6) k/uL Hgb 12.5 L (13.0-17.5) gm/dL Hct 38.0 L (39.0-53.0) % Neutrophils # 12.7 H (1.3-7.7) k/uL Monocytes # 1.1 H (0-1.0) k/uL ABG pH (7.35-7.45) ABG pCO2 (35-45) mmHg ABG pO2 (83-108) mmHg ABG HCO3 (21-25) mmol/L ABG Total CO2 (19-24) mmol/L ABG O2 Saturation (94-97) % Sodium 124 L (137-145) mmol/L Chloride (98-107) mmol/L Glucose (74-99) mg/dL POC Glucose (mg/dL) 101 H (75-99) mg/dL 04/01/19 04/01/19 04/01/19 Range/Units 05:30 06:18 07:06 WBC (3.8-10.6) k/uL Hgb (13.0-17.5) gm/dL Hct (39.0-53.0) % Neutrophils # (1.3-7.7) k/uL Monocytes # (0-1.0) k/uL ABG pH 7.47 H (7.35-7.45) ABG pCO2 (35-45) mmHg ABG pO2 (83-108) mmHg ABG HCO3 31 H (21-25) mmol/L ABG Total CO2 33 H (19-24) mmol/L ABG O2 Saturation 98.7 H (94-97) % Sodium 126 L (137-145) mmol/L Chloride 89 L (98-107) mmol/L Glucose 107 H (74-99) mg/dL POC Glucose (mg/dL) 109 H (75-99) mg/dL 04/01/19 04/01/19 Range/Units 10:35 12:30 WBC (3.8-10.6) k/uL Hgb (13.0-17.5) gm/dL Hct (39.0-53.0) % Neutrophils # (1.3-7.7) k/uL Monocytes # (0-1.0) k/uL ABG pH (7.35-7.45) ABG pCO2 (35-45) mmHg ABG pO2 (83-108) mmHg ABG HCO3 (21-25) mmol/L ABG Total CO2 (19-24) mmol/L ABG O2 Saturation (94-97) % Sodium 127 L (137-145) mmol/L Chloride (98-107) mmol/L Glucose (74-99) mg/dL POC Glucose (mg/dL) 116 H (75-99) mg/dL Microbiology - Last 24 Hours (Table) 03/31/19 17:38 Gram Stain - Preliminary Sputum Sputum Culture - Preliminary 03/29/19 16:50 Blood Culture - Preliminary Blood No Growth after 48 hours Assessment and Plan Assessment: Impression: Acute hypoxic and hypercapnic respiratory failure secondary to acute exacerbation of COPD. And secondary to right lower lobe pneumonia, likely aspiration pneumonia. Requiring intubation and mechanical ventilation. Severe hyponatremia, possible SIADH. Could be related to his psychiatric medications. Mental status change, acute metabolic encephalopathy secondary to hyponatremia History of type 2 diabetes. History of schizophrenia History of nicotine dependence syndrome. Possible right lower lobe aspiration pneumonia. May consider a CT of the chest if it does not improve just to rule out underlying mass. Although this is felt to be less likely. Recommendation: Continue ventilatory support. Continue nutritional support. Continue GI and DVT prophylaxis. Continue bronchodilators. Continue antibiotics and steroids. Continue to monitor the patient in the ICU. Continue to correct his low-sodium , being addressed by nephrology. Patient is off 3% saline at present foreign exchange services manager to evaluate and address possibly getting a public guardian on this patient. Critical care time is 40 minutes. We'll continue to follow. Time with Patient: Greater than 30
--- NOTE | 2019-04-01 16:08 | P.PN ---
Subjective Progress Note Date: 04/01/19 Principal diagnosis: 63-year-old male with known history of hypertension schizophrenia came in completely confused, altered mental status. patient is unable to provide any history to me patient as he is excessively drowsy but able to wake up with verbal stimuli. But unable to provide any history. Patient is found to be severely hyponatremic also found to have aspiration pneumonia. Patient does have significant leukocytosis. Patient in the past was treated for hypovolemic as was hypovolemic hyponatremia. Patient serum sodium is extremely low at 113 on 3% saline to 117. Nephrology is following the patient I did order urine osmolality, serum osmolality urine random sodium urine didn't random creatinine urinary uric acid although these labs will not be reliable because as patient is already on saline now. 03/31/2019 Patient is currently in the ICU being closely monitored with a director of safety and security at the bedside. Patient continues to be confused and quite lethargic. Per sitter, patient occasionally tries to get up out of the bed but is not coherent as to what he is doing. Patient continues to fall asleep when talking with the patient but is arousable to voice. Current sodium is 121. Nephrology is following. White blood count has also improved slightly and is trending down and is currently 20.1. Today's chest x-ray shows possible underlying mild pulmonary vascular congestion with the right hilar masslike prominence and persistent right basilar obesity. 04/01/2019 Patient currently remains in the ICU and is being closely monitored and patient was intubated last night as he continued to deteriorate and developed hypoxic and hypercapnic respiratory failure. Patient was very lethargic and unarousable and patient was intubated with Dr. Miranda. Currently patient is sedated and seems to be much more comfortable. Chest x-ray today shows some improvement of the right lower lobe pneumonia. Patient's sodium is currently 126 and 3% normal saline has been discontinued. Nephrology is following. Sputum cultures thus far showing gram-negative bacilli and patient is currently on Unasyn and will continue at this time. Objective - Vital Signs Vital signs: Vital Signs Temp 98.0 F 04/01/19 12:00 Pulse 72 04/01/19 14:00 Resp 20 04/01/19 14:00 BP 100/85 04/01/19 14:00 Pulse Ox 97 01/17/20 14:00 Intake & Output 03/31/19 04/01/19 04/01/19 18:59 06:59 18:59 Intake Total 391.888 592.964 124 Output Total 545 1305 610 Balance -153.112 -712.036 -486 Weight 115 kg 115 kg Intake: IV 375 345 70 Ampicillin-Sulbactam 3 gm 100 200 In Sodium Chloride 0.9% 100 ml @ 200 mls/hr IVPB Q6HR [facility] Rx#:[id number] NS @ 10mls/hr 110 130 70 Sodium Chloride 3%( 15 Hypertonic) 500 ml @ 15 mls/hr IV .Q24H [facility] Rx#: [id number] Sodium Chloride 3%( 150 15 Hypertonic) 500 ml @ 15 mls/hr IV .Q24H [facility] Rx#: [id number] Intake, IV Titration 16.888 247.964 Amount Norepinephrine 4 mg In 9.065 Sodium Chloride 0.9% 250 ml @ 0.05 MCG/KG/MIN 21. 755 mls/hr IV .[id number] [facility] Rx#:[id number] Propofol 1,000 mg In 7.823 247.964 Empty Bag 1 bag @ Titrate IV .Q0M [facility] Rx#: [id number] Tube Feeding 54 Output: Urine 545 1305 610 Other: Voiding Method Indwelling Catheter Indwelling Catheter Indwelling Catheter ABP, PAP, CO, CI - Last Documented Arterial Blood Pressure 125/62 - Exam GENERAL: Sedated, intubated HEENT: Pupils are round and equally reacting to light. EOMI. No scleral icterus. No conjunctival pallor. Normocephalic, atraumatic. No pharyngeal erythema. No thyromegaly. CARDIOVASCULAR: S1 and S2 present. No murmurs, rubs, or gallops. PULMONARY: Lung sounds diminished at the bases with a few scattered crackles noted ABDOMEN: Soft, obese, nontender, nondistended, normoactive bowel sounds. No palpable organomegaly. MUSCULOSKELETAL: No joint swelling or deformity. EXTREMITIES: No cyanosis, clubbing, or pedal edema. NEUROLOGICAL: sedated, intubated SKIN: No rashes. - Labs CBC & Chem 7: 04/01/19 05:30 04/01/19 10:35 Labs: Abnormal Lab Results - Last 24 Hours (Table) 0103/31/19 03/31/19 Range/Units 18:00 18:23 18:25 WBC (3.8-10.6) k/uL Hgb (13.0-17.5) gm/dL Hct (39.0-53.0) % Neutrophils # (1.3-7.7) k/uL Monocytes # (0-1.0) k/uL ABG pH 7.24 L (7.35-7.45) ABG pCO2 73 H* (35-45) mmHg ABG pO2 384 H (83-108) mmHg ABG HCO3 31 H (21-25) mmol/L ABG Total CO2 33 H (19-24) mmol/L ABG O2 Saturation 99.8 H (94-97) % Sodium 124 L (137-145) mmol/L Chloride (98-107) mmol/L Glucose (74-99) mg/dL POC Glucose (mg/dL) 117 H (75-99) mg/dL 03/31/19 04/01/19 04/01/19 Range/Units 23:00 00:27 05:30 WBC 17.3 H (3.8-10.6) k/uL Hgb 12.5 L (13.0-17.5) gm/dL Hct 38.0 L (39.0-53.0) % Neutrophils # 12.7 H (1.3-7.7) k/uL Monocytes # 1.1 H (0-1.0) k/uL ABG pH (7.35-7.45) ABG pCO2 (35-45) mmHg ABG pO2 (83-108) mmHg ABG HCO3 (21-25) mmol/L ABG Total CO2 (19-24) mmol/L ABG O2 Saturation (94-97) % Sodium 124 L (137-145) mmol/L Chloride (98-107) mmol/L Glucose (74-99) mg/dL POC Glucose (mg/dL) 101 H (75-99) mg/dL 04/01/19 04/01/19 04/01/19 Range/Units 05:30 06:18 07:06 WBC (3.8-10.6) k/uL Hgb (13.0-17.5) gm/dL Hct (39.0-53.0) % Neutrophils # (1.3-7.7) k/uL Monocytes # (0-1.0) k/uL ABG pH 7.47 H (7.35-7.45) ABG pCO2 (35-45) mmHg ABG pO2 (83-108) mmHg ABG HCO3 31 H (21-25) mmol/L ABG Total CO2 33 H (19-24) mmol/L ABG O2 Saturation 98.7 H (94-97) % Sodium 126 L (137-145) mmol/L Chloride 89 L (98-107) mmol/L Glucose 107 H (74-99) mg/dL POC Glucose (mg/dL) 109 H (75-99) mg/dL 04/01/19 04/01/19 Range/Units 10:35 12:30 WBC (3.8-10.6) k/uL Hgb (13.0-17.5) gm/dL Hct (39.0-53.0) % Neutrophils # (1.3-7.7) k/uL Monocytes # (0-1.0) k/uL ABG pH (7.35-7.45) ABG pCO2 (35-45) mmHg ABG pO2 (83-108) mmHg ABG HCO3 (21-25) mmol/L ABG Total CO2 (19-24) mmol/L ABG O2 Saturation (94-97) % Sodium 127 L (137-145) mmol/L Chloride (98-107) mmol/L Glucose (74-99) mg/dL POC Glucose (mg/dL) 116 H (75-99) mg/dL Microbiology - Last 24 Hours (Table) 03/31/19 17:38 Gram Stain - Preliminary Sputum Sputum Culture - Preliminary Gram Neg Bacilli 03/29/19 16:50 Blood Culture - Preliminary Blood No Growth after 48 hours Assessment and Plan Assessment: -Hypoxic and hypercapnic respiratory failure possibly secondary to pneumonia. Patient is currently intubated on mechanical ventilation in the ICU -Severe hyponatremia: Multifactorial there may be a component of psychogenic polydipsia, SIADH from medications as well as hypovolemia. 3% saline was dis continued. Current sodium is 126 -Possible aspiration pneumonia patient was started on Unasyn. -Severe metabolic encephalopathy from hyponatremia -Type 2 diabetes mellitus -Schizophrenia -Nicotine abuse
[2019-04-01 18:22] LABS: Glucose,Whole Blood 119 mg/dL (75-99)
[2019-04-01] MEDS: INSULIN ASPART (NovoLOG) 100 UNIT/ML VIAL SQ SCH (23:57)
[2019-04-02 00:08] LABS: Glucose,Whole Blood 121 mg/dL (75-99)
[2019-04-02] MEDS: PROPOFOL 1,000 MG in EMPTY BAG 1 BAG IV SCH ×6 (01:07→23:01)
[2019-04-02 04:25] LABS: Basophils # (A) 0.3 k/uL (0-0.2); Basophils % (A) 2 %; Eosinophils # (A) 0.1 k/uL (0-0.7); Eosinophils % (A) 0 %; HGB 12.3 gm/dL (13.0-17.5); Lymphocytes % (A) 23 %; MCH 29.4 pg (25.0-35.0); MCHC 33.3 g/dL (31.0-37.0); MCV 88.4 fL (80.0-100.0); Mean Platelet Volume 7.2; Monocytes # (A) 0.8 k/uL (0-1.0); Monocytes % (A) 5 %; Neutrophils # (A) 11.7 k/uL (1.3-7.7); Neutrophils % (A) 67 %; Platelet Count 284 k/uL (150-450); RBC 4.19 m/uL (4.30-5.90); RDW 13.2 % (11.5-15.5); WBC 17.5 k/uL (3.8-10.6)
[2019-04-02 04:37] LABS: African American GFR (CKD) >90 (>60 ml/min/1.73 sqM); Anion Gap 4 mmol/L; Blood Urea Nitrogen 17 mg/dL (9-20); Calcium 8.2 mg/dL (8.4-10.2); Carbon Dioxide 35 mmol/L (22-30); Chloride 91 mmol/L (98-107); Glucose 137 mg/dL (74-99); Non-African American GFR(CKD) >90 (>60 ml/min/1.73 sqM); Potassium 4.4 mmol/L (3.5-5.1); Sodium 130 mmol/L (137-145)
[2019-04-02] MEDS: NOREPINEPHRINE 4 MG in SODIUM CHLORIDE 0.9% 250 ML IV SCH ×2 (05:46→15:50)
[2019-04-02] MEDS: INSULIN ASPART (NovoLOG) 100 UNIT/ML VIAL SQ SCH ×4 (05:52→23:26)
[2019-04-02] MEDS: AMPICILLIN-SULBACTAM 3 GM in SODIUM CHLORIDE 0.9% 100 ML IVPB SCH ×6 (05:52→23:33)
[2019-04-02] MEDS: methylPREDNISolone SOD SUCCI 40 MG/ML 1 ML VIAL IV SCH ×5 (05:52→23:32)
[2019-04-02 05:59] LABS: Glucose,Whole Blood 141 mg/dL (75-99)
--- NOTE | 2019-04-02 06:35 | XR ---
EXAMINATION TYPE: XR chest 1V DATE OF EXAM: 04/02/2019 HISTORY: mechanical ventilation. REFERENCE: Previous study dated 04/01/2019. FINDINGS: The patient is ET tube and NG tube remain in place, unchanged in appearance. A right internal revenue agent al jugular catheter is in place. Its tip is in the superior vena cava. There is right basilar airspace disease and a right sided pleural effusion. There is some mild left b asilar airspace disease as well. The heart is enlarged. IMPRESSION: 1. CARDIOMEGALY. 2. BIBASILAR AIRSPACE DISEASE. 3. SMALL RIGHT-SIDED EFFUSION.
[2019-04-02] MEDS: IPRATROPIUM-ALBUTEROL 3 ML NEB INHALATION PRN ×4 (07:41→21:20)
[2019-04-02] MEDS: BUDESONIDE 0.5 MG/2 ML NEBU INHALATION SCH ×2 (07:41→21:20)
[2019-04-02] MEDS: ENOXAPARIN 40 MG/0.4 ML SYRINGE SQ SCH (08:23)
[2019-04-02] MEDS: PANTOPRAZOLE 40 MG/10 ML VIAL IV SCH (08:23)
[2019-04-02] MEDS: CHLORHEXIDINE GLUCONATE 15 ML CUP MUCOUS MEM SCH ×2 (08:23→20:43)
[2019-04-02 08:34] LABS: ABG Base Excess 10.9 mmol/L; ABG HCO3 35 mmol/L (21-25); ABG Oxygen Saturation 95.1 % (94-97); ABG PCO2 55 mmHg (35-45); ABG PH 7.42 (7.35-7.45); ABG PO2 74 mmHg (83-108); ABG TCO2 37 mmol/L (19-24); Allen Test Performed? Yes
[2019-04-02 11:48] LABS: Glucose,Whole Blood 133 mg/dL (75-99)
--- NOTE | 2019-04-02 11:51 | P.PN ---
Subjective Progress Note Date: 04/02/19 Principal diagnosis: This 63-year-old male is followed up because of severe hyponatremia. He came in with a sodium of 111. He has been worked up with TSH within normal range, urine osmolality was 372 urine sodium was 78 on the day of admission. He has had hyponatremia in the p ast, sodium being 114 on 12/23/2018, and further before that was 128 on 11/09/2018. During one of his episode his uric acid was 1.8 His sodium improved slowly to 1:30 this morning. His 3% saline was discontinued yesterday because of questionable congestive heart failure although the chest x- ray is suggestive more of atelectasis and cardiomegaly but no evidence radiologically of any congestive heart failure. He is intubated though because of possibility of aspiration. Currently on 50% FiO2. Blood gases shows pH of 7.42, pCO2 is 55 and pO2 is 74. Objective - Vital Signs Vital signs: Vital Signs Temp 98.1 F 04/02/19 08:00 Pulse 60 04/02/19 11:35 Resp 20 04/02/19 10:00 BP 100/85 04/02/19 08:00 Pulse Ox 99 04/02/19 10:00 Intake & Output 04/01/19 04/02/19 04/02/19 18:59 06:59 18:59 Intake Total 438.275 970 195 Output Total 1135 773 210 Balance -696.725 197 -15 Weight 115 kg Intake: IV 110 310 30 Ampicillin-Sulbactam 3 gm 200 In Sodium Chloride 0.9% 100 ml @ 200 mls/hr IVPB Q6HR [facility] Rx#:[id number] NS @ 10mls/hr 110 110 30 Intake, IV Titration 190.275 300 Amount Propofol 1,000 mg In 190.275 300 Empty Bag 1 bag @ Titrate IV .Q0M [facility] Rx#: [id number] Tube Feeding 108 270 135 Other 30 90 30 Output: Urine 1135 773 210 Other: Voiding Method Indwelling Catheter Indwelling Catheter Indwelling Catheter ABP, PAP, CO, CI - Last Documented Arterial Blood Pressure 142/75 Currently intubated, obtunded on sedation HEENT exam no JVP neck is supple no facial asymmetry pupils are equal Lungs clear to auscultation fair air entry bilaterally Heart sounds are unremarkable for any murmur rub gallop Abdomen soft nontender Extremity exam was no edema Neurologically obtunded On his left hand third finger he has a eschar without any inflammation around it - Labs CBC & Chem 7: 04/02/19 04:15 04/02/19 04:15 Labs: Abnormal Lab Results - Last 24 Hours (Table) 04/01/19 04/01/19 04/01/19 Range/Units 12:30 18:10 18:20 WBC (3.8-10.6) k/uL RBC (4.30-5.90) m/uL Hgb (13.0-17.5) gm/dL Hct (39.0-53.0) % Neutrophils # (1.3-7.7) k/uL Basophils # (0-0.2) k/uL ABG pCO2 (35-45) mmHg ABG pO2 (83-108) mmHg ABG HCO3 (21-25) mmol/L ABG Total CO2 (19-24) mmol/L Sodium 128 L (137-145) mmol/L Chloride (98-107) mmol/L Carbon Dioxide (22-30) mmol/L Creatinine (0.66-1.25) mg/dL Glucose (74-99) mg/dL POC Glucose (mg/dL) 116 H 119 H (75-99) mg/dL Calcium (8.4-10.2) mg/dL 04/01/19 04/02/19 04/02/19 Range/Units 23:57 04:15 04:15 WBC 17.5 H (3.8-10.6) k/uL RBC 4.19 L (4.30-5.90) m/uL Hgb 12.3 L (13.0-17.5) gm/dL Hct 37.0 L (39.0-53.0) % Neutrophils # 11.7 H (1.3-7.7) k/uL Basophils # 0.3 H (0-0.2) k/uL ABG pCO2 (35-45) mmHg ABG pO2 (83-108) mmHg ABG HCO3 (21-25) mmol/L ABG Total CO2 (19-24) mmol/L Sodium 130 L (137-145) mmol/L Chloride 91 L (98-107) mmol/L Carbon Dioxide 35 H (22-30) mmol/L Creatinine 0.55 L (0.66-1.25) mg/dL Glucose 137 H (74-99) mg/dL POC Glucose (mg/dL) 121 H (75-99) mg/dL Calcium 8.2 L (8.4-10.2) mg/dL 04/02/19 04/02/19 Range/Units 05:48 08:32 WBC (3.8-10.6) k/uL RBC (4.30-5.90) m/uL Hgb (13.0-17.5) gm/dL Hct (39.0-53.0) % Neutrophils # (1.3-7.7) k/uL Basophils # (0-0.2) k/uL ABG pCO2 55 H (35-45) mmHg ABG pO2 74 L (83-108) mmHg ABG HCO3 35 H (21-25) mmol/L ABG Total CO2 37 H (19-24) mmol/L Sodium (137-145) mmol/L Chloride (98-107) mmol/L Carbon Dioxide (22-30) mmol/L Creatinine (0.66-1.25) mg/dL Glucose (74-99) mg/dL POC Glucose (mg/dL) 141 H (75-99) mg/dL Calcium (8.4-10.2) mg/dL Microbiology - Last 24 Hours (Table) 03/31/19 17:38 Gram Stain - Final Sputum Sputum Culture - Final Enterobacter cloacae 03/29/19 16:50 Blood Culture - Preliminary Blood No Growth after 72 hours Assessment and Plan Assessment: Impression 1. Severe hyponatremia improved from 111-130 with 3% saline. Cause possibly is euvolemic in relation to his psychiatric illnesses or his medications. Currently he is on tube feedings 27 mL per minute 8 30 mL flush every 4 hours with water and it 10 mL saline and as his sodium is improving we need to improve his hydration. 2. Status post intubation because of aspiration pneumonia with atelectasis 3. History of schizophrenia 4. Blood gases show pH of 7.4 to and a bicarb of 35. Therefore he has residual compensatory metabolic alkalosis which is slow to recover since his respiratory acidosis has been corrected with ventilator. Recommendation 1. Increase IV saline to 50 an hour to improve his hydration. Expect sodium to improve. 2. Repeat his labs tomorrow. 3. Hold off any diuretics. 4. Currently he is mildly alkalotic with a pH of 7.42 and a respiratory acidosis with pCO2 of 55. If we correct his respiratory acidosis with mental changes his pH we will go up again
[2019-04-02] MEDS: SODIUM CHLORIDE 0.9% 1,000 ML IV SCH ×2 (12:28→20:07)
--- NOTE | 2019-04-02 14:03 | P.PN ---
Subjective Progress Note Date: 04/02/19 Principal diagnosis: Hyponatremia and metabolic encephalopathy. This is a 63-year-old white male, poor historian, known history of schizophrenia, hypertension, patient is on multiple psychiatric medications, presented to the ER with mostly mental status change and worsening confusion. Patient was found to have extremely low sodium of 111, and his chest x-ray is suggestive of right lower lobe aspiration pneumonia. Patient was noted to have leukocytosis, he was noted to be hypovolemic clinically, and patient was initially started on 3% saline his repeat serum sodium today is 117. Nephrology has the patient on consultation, urine and serum osmolalities are pending. Cons idering the patient was admitted to the ICU and he was placed on 3% hypertonic saline, I was asked to see him on consultation. However upon my evaluation of the patient, he seems to be confused, in no form of respiratory distress, and no further information could be obtained from the patient himself. No family members at bedside. Reevaluated today on 03/31/2019, patient remains in the ICU, his pulmonary status is rather marginal. Patient is not doing well with incentive spirometry, and he does not follow instructions as far as deep coughing and deep breathing and clearing secretions. He does sound wet, and crackly, but the patient does not cough to clear his secretions. Chest x-ray showed mild pulmonary vascular congestion, and right lower lobe atelectasis, possibly right sided pneumonia. Sodium today is up to 121. His renal profile is normal BUN is 10 and creatinine 0.57. WBC count is 20.1. Remains on antibiotics for presumptive aspiration. Patient was seen by nephrology yesterday, and he was felt to have hypovolemic hyponatremia. Patient continues to have a safety relief valve technician at bedside. And he continues to be confused, and lethargic. At times he tries to get out of bed, and he is not coherent. Reevaluated today on 04/01/2019, patient deteriorated yesterday significantly. Around 5:00 yesterday, patient developed hypoxic and hypercapnic respiratory failure, I happened to be in the ICU at the time, patient was on nonrebreather mask, and when I assessed him, he was extremely difficult to arouse. Could not be aroused, and he had significant amount of wheezing. And he was using his accessory muscles to breathe. Hence intubated the patient immediately, placed on mechanical ventilation, and placed on propofol overnight. He was placed on bronchodilators, steroids. And reevaluated today. Chest x-ray is showing improvement in his right lower lobe pneumonia and atelectasis. His ventilator settings are assist control rate of 20, tidal volume of 500, FiO2 is 50% and PEEP of 5. Propofol is at 50 mcg/kg/m. Not requiring any pressors. ABG this morning showed a pO2 of 101 pCO2 of 43 pH of 7.47. Sodium is up to 127 today. WBC count is 17.3 hemoglobin is 12.5. Renal functioning is normal. Blood cultures are negative so far. Sputum cultures are pending. Patient remains on Unasyn, bronchodilators, Lovenox, methylprednisolone for his COPD exacerbation, he is also on GI and DVT prophylaxis. Patient is on Lovenox. Reevaluated today on 04/02/2019, patient remains intubated, mechanically ventilated.patient is on the same ventilator settings as yesterday, and FiO2 is 50%, PEEP is 5, tidal volume is 500 assist control rate of 20.ABG today is marginal pO2 is 74 pCO2 of 55 pH of 7.42. WBC count is 17.5 hemoglobin is 12.3 sodium is better up to 130.renal profile is normal bicarb is 35.chest x-ray continues to show cardiomegaly and bibasilar airspace disease with atelectasis and possible underlying pneumonia bilaterally. Small right-sided pleural e ffusion is noted Objective - Vital Signs Vital signs: Vital Signs Temp 98.1 F 04/02/19 08:00 Pulse 60 04/02/19 11:35 Resp 20 04/02/19 10:00 BP 100/85 04/02/19 08:00 Pulse Ox 99 04/02/19 10:00 Intake & Output 04/01/19 04/02/19 04/02/19 18:59 06:59 18:59 Intake Total 438.275 970 195 Output Total 1135 773 210 Balance -696.725 197 -15 Weight 115 kg Intake: IV 110 310 30 Ampicillin-Sulbactam 3 gm 200 In Sodium Chloride 0.9% 100 ml @ 200 mls/hr IVPB Q6HR [facility] Rx#:[id number] NS @ 10mls/hr 110 110 30 Intake, IV Titration 190.275 300 Amount Propofol 1,000 mg In 190.275 300 Empty Bag 1 bag @ Titrate IV .Q0M [facility] Rx#: [id number] Tube Feeding 108 270 135 Other 30 90 30 Output: Urine 1135 773 210 Other: Voiding Method Indwelling Catheter Indwelling Catheter Indwelling Catheter ABP, PAP, CO, CI - Last Documented Arterial Blood Pressure 142/75 - Exam Physical Exam: Physical examination revealed a 63-year-old white male, remains on propofol, sedated, intubated Head: Atraumatic normocephalic. Endotracheal tube and orogastric tube are intact HEENT:[Neck is supple.] [No neck masses.] [No thyromegaly.] [No JVD.] PERRLA, EOMI, dry mucous membranes noted. No icterus. Chest: [Symmetrical expansion, minimal wheezing noted bilaterally, Cardiac Exam: [Normal S1 and S2, no S3 gallop, no murmur.] Abdomen: Obese, [Soft, nontender, no megaly, no rebound, no guarding, normal bowel sounds.] Extremities: [No clubbing, no edema, no cyanosis.] Neurological Exam: Cannot be assessed, patient is sedated on propofol. Psychiatric: Cannot be assessed. Skin: Healing skin laceration noted in the left index finger.scabs Formation is noted. Related to recent abscess - Labs CBC & Chem 7: 04/02/19 04:15 04/02/19 04:15 Labs: Abnormal Lab Results - Last 24 Hours (Table) 04/01/19 04/01/19 04/01/19 Range/Units 18:10 18:20 23:57 WBC (3.8-10.6) k/uL RBC (4.30-5.90) m/uL Hgb (13.0-17.5) gm/dL Hct (39.0-53.0) % Neutrophils # (1.3-7.7) k/uL Basophils # (0-0.2) k/uL ABG pCO2 (35-45) mmHg ABG pO2 (83-108) mmHg ABG HCO3 (21-25) mmol/L ABG Total CO2 (19-24) mmol/L Sodium 128 L (137-145) mmol/L Chloride (98-107) mmol/L Carbon Dioxide (22-30) mmol/L Creatinine (0.66-1.25) mg/dL Glucose (74-99) mg/dL POC Glucose (mg/dL) 119 H 121 H (75-99) mg/dL Calcium (8.4-10.2) mg/dL 04/02/19 04/02/19 04/02/19 Range/Units 04:15 04:15 05:48 WBC 17.5 H (3.8-10.6) k/uL RBC 4.19 L (4.30-5.90) m/uL Hgb 12.3 L (13.0-17.5) gm/dL Hct 37.0 L (39.0-53.0) % Neutrophils # 11.7 H (1.3-7.7) k/uL Basophils # 0.3 H (0-0.2) k/uL ABG pCO2 (35-45) mmHg ABG pO2 (83-108) mmHg ABG HCO3 (21-25) mmol/L ABG Total CO2 (19-24) mmol/L Sodium 130 L (137-145) mmol/L Chloride 91 L (98-107) mmol/L Carbon Dioxide 35 H (22-30) mmol/L Creatinine 0.55 L (0.66-1.25) mg/dL Glucose 137 H (74-99) mg/dL POC Glucose (mg/dL) 141 H (75-99) mg/dL Calcium 8.2 L (8.4-10.2) mg/dL 04/02/19 04/02/19 Range/Units 08:32 11:33 WBC (3.8-10.6) k/uL RBC (4.30-5.90) m/uL Hgb (13.0-17.5) gm/dL Hct (39.0-53.0) % Neutrophils # (1.3-7.7) k/uL Basophils # (0-0.2) k/uL ABG pCO2 55 H (35-45) mmHg ABG pO2 74 L (83-108) mmHg ABG HCO3 35 H (21-25) mmol/L ABG Total CO2 37 H (19-24) mmol/L Sodium (137-145) mmol/L Chloride (98-107) mmol/L Carbon Dioxide (22-30) mmol/L Creatinine (0.66-1.25) mg/dL Glucose (74-99) mg/dL POC Glucose (mg/dL) 133 H (75-99) mg/dL Calcium (8.4-10.2) mg/dL Microbiology - Last 24 Hours (Table) 03/31/19 17:38 Gram Stain - Final Sputum Sputum Culture - Final Enterobacter cloacae 03/29/19 16:50 Blood Culture - Preliminary Blood No Growth after 72 hours Assessment and Plan Assessment: Impression: Acute hypoxic and hypercapnic respiratory failure secondary to acute exacerbation of COPD. And secondary to right lower lobe pneumonia, likely aspiration pneumonia. Requiring intubation and mechanical ventilation. Severe hyponatremia, possible SIADH. Could be related to his psychiatric medications.improving, responded well to treatment. Mental status change, acute metabolic encephalopathy secondary to hyponatremia History of type 2 diabetes. History of schizophrenia History of nicotine dependence syndrome. Possible right lower lobe aspiration pneumonia. Recommendation: Continue ventilatory support. Continue nutritional support.start enteral feeding. Continue GI and DVT prophylaxis. Continue bronchodilators. Continue antibiotics and steroids. Continue to monitor the patient in the ICU.seems to be improving sodium today is 130. senior web services developer to evaluate and address possibly getting a public guardian on this patient. Critical care time is 33 minutes. Considering his ABGs are marginal, and considering his baseline mental status and schizophrenia, patient will be difficult to wean, I have no plans to wean or extubate today or possibly tomorrow. We'll continue to follow. Time with Patient: Greater than 30
--- NOTE | 2019-04-02 14:41 | P.PN ---
Subjective 63-year-old white male, poor historian, known history of schizophrenia, hypertension, patient is on multiple psychiatric medications, presented to the ER with mostly mental status change and worsening confusion. Patient was found to have extremely low sodium of 111, and his chest x-ray is suggestive of right lower lobe aspiration pneumonia. Patient was noted to have leukocytosis, he was noted to be hypovolemic clinically, and patient was initially started on 3% saline his repeat serum sodium today is 117. Nephrology has the patient on cons ultation, urine and serum osmolalities are pending. Considering the patient was admitted to the ICU and he was placed on 3% hypertonic saline, I was asked to see him on consultation. However upon my evaluation of the patient, he seems to be confused, in no form of respiratory distress, and no further information could be obtained from the patient himself. No family members at bedside. Reevaluated today on 03/31/2019, patient remains in the ICU, his pulmonary status is rather marginal. Patient is not doing well with incentive spirometry, and he does not follow instructions as far as deep coughing and deep breathing and clearing secretions. He does sound wet, and crackly, but the patient does not cough to clear his secretions. Chest x-ray showed mild pulmonary vascular congestion, and right lower lobe atelectasis, possibly right sided pneumonia. Sodium today is up to 121. His renal profile is normal BUN is 10 and creatinine 0.57. WBC count is 20.1. Remains on antibiotics for presumptive aspiration. Patient was seen by nephrology yesterday, and he was felt to have hypovolemic hyponatremia. Patient continues to have a health and safety representative at bedside. And he continues to be confused, and lethargic. At times he tries to get out of bed, and he is not coherent. Reevaluated today on 04/01/2019, patient deteriorated yesterday significantly. Around 5:00 yesterday, patient developed hypoxic and hypercapnic respiratory failure, I happened to be in the ICU at the time, patient was on nonrebreather mask, and when I assessed him, he was extremely difficult to arouse. Could not be aroused, and he had significant amount of wheezing. And he was using his accessory muscles to breathe. Hence intubated the patient immediately, placed on mechanical ventilation, and placed on propofol overnight. He was placed on bronchodilators, steroids. And reevaluated today. Chest x-ray is showing improvement in his right lower lobe pneumonia and atelectasis. His ventilator settings are assist control rate of 20, tidal volume of 500, FiO2 is 50% and PEEP of 5. Propofol is at 50 mcg/kg/m. Not requiring any pressors. ABG this morning showed a pO2 of 101 pCO2 of 43 pH of 7.47. Sodium is up to 127 today. WBC count is 17.3 hemoglobin is 12.5. Renal functioning is normal. Blood cul tures are negative so far. Sputum cultures are pending. Patient remains on Unasyn, bronchodilators, Lovenox, methylprednisolone for his COPD exacerbation, he is also on GI and DVT prophylaxis. Patient is on Lovenox. 04/02/2019 Patient remains intubated patient remains hypercapnic sick and hypercapnic because of which the activation was not attempted today. Patient remains on pressor support patient is on minimal vent settings at this time patient on 50 mL of normal saline as it was believed that patient has uremic hyponatremia improved with the 3% saline and now patient has some metabolic alkalosis partly because of the respiratory compensation and the there may be a competent of the contraction alkalosis. His serum sodium is 130on admission serum sodium is 114. Review of systems: Unable to obtain as patient is intubated and sedated All inpatient medications were reviewed and appropriate changes in these medications as dictated in the interval history and assessment and plan. Objective - Vital Signs Vital signs: Vital Signs Temp 97.9 F 04/02/19 12:00 Pulse 61 04/02/19 14:00 Resp 24 04/02/19 14:00 BP 100/85 04/02/19 08:00 Pulse Ox 98 04/02/19 14:00 Intake & Output 04/01/19 04/02/19 04/02/19 18:59 06:59 18:59 Intake Total 438.275 970 459 Output Total 1135 773 325 Balance -696.725 197 134 Weight 115 kg Intake: IV 110 310 240 Ampicillin-Sulbactam 3 gm 200 100 In Sodium Chloride 0.9% 100 ml @ 200 mls/hr IVPB Q6HR [facility] Rx#:[id number] NS @ 10mls/hr 110 110 140 Intake, IV Titration 190.275 300 Amount Propofol 1,000 mg In 190.275 300 Empty Bag 1 bag @ Titrate IV .Q0M [facility] Rx#: [id number] Tube Feeding 108 270 189 Other 30 90 30 Output: Urine 1135 773 325 Other: Voiding Method Indwelling Catheter Indwelling Catheter Indwelling Catheter ABP, PAP, CO, CI - Last Documented Arterial Blood Pressure 146/75 - Exam Physical Exam: Physical examination revealed a 63-year-old white male, remains on propofol, sedated, intubated Head: Atraumatic normocephalic. Endotracheal tube and orogastric tube are intact HEENT:[Neck is supple.] [No neck masses.] [No thyromegaly.] [No JVD.] PERRLA, EOMI, dry mucous membranes noted. No icterus. Chest: Wheezing on exam Cardiac Exam: [Normal S1 and S2, no S3 gallop, no murmur.] Abdomen: Obese, [Soft, nontender, no megaly, no rebound, no guarding, normal bowel sounds.] Extremities: [No clubbing, no edema, no cyanosis.] Neurological Exam: Cannot be assessed, patient is sedated on propofol. Psychiatric: Cannot be assessed. Skin: Healing skin laceration noted in the left index finger.scabs Formation is noted. Related to recent abscess - Labs CBC & Chem 7: 04/02/19 04:15 04/02/19 04:15 Labs: Abnormal Lab Results - Last 24 Hours (Table) 04/01/19 04/01/19 04/01/19 Range/Units 18:10 18:20 23:57 WBC (3.8-10.6) k/uL RBC (4.30-5.90) m/uL Hgb (13.0-17.5) gm/dL Hct (39.0-53.0) % Neutrophils # (1.3-7.7) k/uL Basophils # (0-0.2) k/uL ABG pCO2 (35-45) mmHg ABG pO2 (83-108) mmHg ABG HCO3 (21-25) mmol/L ABG Total CO2 (19-24) mmol/L Sodium 128 L (137-145) mmol/L Chloride (98-107) mmol/L Carbon Dioxide (22-30) mmol/L Creatinine (0.66-1.25) mg/dL Glucose (74-99) mg/dL POC Glucose (mg/dL) 119 H 121 H (75-99) mg/dL Calcium (8.4-10.2) mg/dL 04/02/19 04/02/19 04/02/19 Range/Units 04:15 04:15 05:48 WBC 17.5 H (3.8-10.6) k/uL RBC 4.19 L (4.30-5.90) m/uL Hgb 12.3 L (13.0-17.5) gm/dL Hct 37.0 L (39.0-53.0) % Neutrophils # 11.7 H (1.3-7.7) k/uL Basophils # 0.3 H (0-0.2) k/uL ABG pCO2 (35-45) mmHg ABG pO2 (83-108) mmHg ABG HCO3 (21-25) mmol/L ABG Total CO2 (19-24) mmol/L Sodium 130 L (137-145) mmol/L Chloride 91 L (98-107) mmol/L Carbon Dioxide 35 H (22-30) mmol/L Creatinine 0.55 L (0.66-1.25) mg/dL Glucose 137 H (74-99) mg/dL POC Glucose (mg/dL) 141 H (75-99) mg/dL Calcium 8.2 L (8.4-10.2) mg/dL 04/02/19 04/02/19 Range/Units 08:32 11:33 WBC (3.8-10.6) k/uL RBC (4.30-5.90) m/uL Hgb (13.0-17.5) gm/dL Hct (39.0-53.0) % Neutrophils # (1.3-7.7) k/uL Basophils # (0-0.2) k/uL ABG pCO2 55 H (35-45) mmHg ABG pO2 74 L (83-108) mmHg ABG HCO3 35 H (21-25) mmol/L ABG Total CO2 37 H (19-24) mmol/L Sodium (137-145) mmol/L Chloride (98-107) mmol/L Carbon Dioxide (22-30) mmol/L Creatinine (0.66-1.25) mg/dL Glucose (74-99) mg/dL POC Glucose (mg/dL) 133 H (75-99) mg/dL Calcium (8.4-10.2) mg/dL Microbiology - Last 24 Hours (Table) 03/31/19 17:38 Gram Stain - Final Sputum Sputum Culture - Final Enterobacter cloacae 03/29/19 16:50 Blood Culture - Preliminary Blood No Growth after 72 hours Assessment and Plan Plan: -Severe hyponatremia: Multifactorial there may be a competent of psychogenic polydipsia, SIADH from medications as well as hypovolemia. 3% saline is being discontinued there is a competent of hypervolemia because of which patient was started on IV fluids as mentioned above -Acute hypoxic and hypercapnic respiratory failure syndrome with COPD exacerbation and may be a right lower lobe pneumonia and aspiration pneumonia because of which the patient is on Unasyn at this time. -Mediastinal lymphadenopathy which need to be followed as an outpatient once he is stable with repeat CAT scan. -Metabolic encephalopathy secondary to hyponatremia -COPD with acute exacerbation patient systemic steroids -Type 2 diabetes mellitus -Schizophrenia -Nicotine abuse for above-mentioned chronic medical problems patient will be resumed on appropriate home medications whenever he can tolerate oral medications. Speech therapy was consulted because of his mental status to a ssess if he can actually swallow
[2019-04-02 17:38] LABS: Glucose,Whole Blood 127 mg/dL (75-99)
[2019-04-02 23:37] LABS: Glucose,Whole Blood 123 mg/dL (75-99)
[2019-04-03] MEDS: PROPOFOL 1,000 MG in EMPTY BAG 1 BAG IV SCH ×5 (02:15→21:17)
[2019-04-03] MEDS: NOREPINEPHRINE 4 MG in SODIUM CHLORIDE 0.9% 250 ML IV SCH ×2 (04:22→16:34)
[2019-04-03 04:29] LABS: Basophils # (A) 0.4 k/uL (0-0.2); Basophils % (A) 2 %; Eosinophils % (A) 0 %; HCT 39.3 % (39.0-53.0); HGB 12.6 gm/dL (13.0-17.5); Lymphocytes # (A) 4.2 k/uL (1.0-4.8); Lymphocytes % (A) 25 %; MCH 28.9 pg (25.0-35.0); MCV 90.5 fL (80.0-100.0); Mean Platelet Volume 7.3; Monocytes # (A) 0.9 k/uL (0-1.0); Monocytes % (A) 5 %; Neutrophils # (A) 10.6 k/uL (1.3-7.7); Neutrophils % (A) 63 %; Platelet Count 264 k/uL (150-450); RBC 4.34 m/uL (4.30-5.90); RDW 13.3 % (11.5-15.5); WBC 16.8 k/uL (3.8-10.6)
[2019-04-03 04:38] LABS: African American GFR (CKD) >90 (>60 ml/min/1.73 sqM); Anion Gap 2 mmol/L; Blood Urea Nitrogen 18 mg/dL (9-20); Calcium 8.2 mg/dL (8.4-10.2); Carbon Dioxide 37 mmol/L (22-30); Chloride 95 mmol/L (98-107); Glucose 132 mg/dL (74-99); Non-African American GFR(CKD) >90 (>60 ml/min/1.73 sqM); Potassium 4.5 mmol/L (3.5-5.1); Sodium 134 mmol/L (137-145)
[2019-04-03] MEDS: INSULIN ASPART (NovoLOG) 100 UNIT/ML VIAL SQ SCH ×3 (06:03→18:49)
--- NOTE | 2019-04-03 06:03 | XR ---
EXAMINATION TYPE: XR chest 1V portable DATE OF EXAM: 04/03/2019 HISTORY: Tube placement. REFERENCE: Previous study dated 04/02/2019 the patient is ET tube, NG tube and right internal jugular catheter remain in place, unchanged in appearance. There is worsening bibasilar airspace disease. The heart is enlarged. There are small effusions.. FINDINGS: 1. Worsening bibasilar airspace disease 2. Bilateral effusions. 3. Cardiomegaly. IMPRESSION:
[2019-04-03] MEDS: methylPREDNISolone SOD SUCCI 40 MG/ML 1 ML VIAL IV SCH ×4 (06:10→23:59)
[2019-04-03] MEDS: AMPICILLIN-SULBACTAM 3 GM in SODIUM CHLORIDE 0.9% 100 ML IVPB SCH ×3 (06:10→18:53)
[2019-04-03 06:12] LABS: Glucose,Whole Blood 111 mg/dL (75-99)
[2019-04-03 08:01] LABS: ABG Base Excess 12.9 mmol/L; ABG HCO3 37 mmol/L (21-25); ABG Oxygen Saturation 98.5 % (94-97); ABG PCO2 57 mmHg (35-45); ABG PH 7.43 (7.35-7.45); ABG PO2 111 mmHg (83-108); ABG TCO2 39 mmol/L (19-24)
[2019-04-03] MEDS: IPRATROPIUM-ALBUTEROL 3 ML NEB INHALATION PRN ×4 (08:05→19:51)
[2019-04-03] MEDS: BUDESONIDE 0.5 MG/2 ML NEBU INHALATION SCH ×2 (08:05→19:51)
[2019-04-03] MEDS: CHLORHEXIDINE GLUCONATE 15 ML CUP MUCOUS MEM SCH ×2 (08:46→21:18)
[2019-04-03] MEDS: PANTOPRAZOLE 40 MG/10 ML VIAL IV SCH (08:46)
[2019-04-03] MEDS: ENOXAPARIN 40 MG/0.4 ML SYRINGE SQ SCH (08:46)
[2019-04-03] MEDS ORDERED: CALCIUM CARBONATE LIQUID 500 MG/5 ML CUP PO SCH (09:19)
--- NOTE | 2019-04-03 10:29 | P.PN ---
Subjective Progress Note Date: 04/03/19 Principal diagnosis: This 63-year-old male is followed up because of severe hyponatremia. He came in with a sodium of 111. He has been worked up with TSH within normal range, urine osmolality was 372 urine sodium was 78 on the day of admission. He has had hyponatremia in the p ast, sodium being 114 on 12/23/2018, and further before that was 128 on 11/09/2018. During one of his episode his uric acid was 1.8 His sodium improved slowly to 130 yesterday. His 3% saline was discontinued day before yesterday because of questionable congestive heart failure although the chest x-ray is suggestive more of atelectasis and cardiomegaly but no evidence radiologically of any congestive heart failure. He is intubated though because of possibility of aspiration. Currently on 50% FiO2. Objective - Vital Signs Vital signs: Vital Signs Temp 99.3 F 04/03/19 08:00 Pulse 64 04/03/19 08:18 Resp 20 04/03/19 08:00 BP 100/85 04/02/19 08:00 Pulse Ox 99 04/03/19 08:00 Intake & Output 04/02/19 04/03/19 04/03/19 18:59 06:59 18:59 Intake Total 714.498 0242.30 204 Output Total 630 780 155 Balance 359.475 770.30 49 Weight 104 kg Intake: IV 640 800 150 Ampicillin-Sulbactam 3 gm 200 200 In Sodium Chloride 0.9% 100 ml @ 200 mls/hr IVPB Q6HR [facility] Rx#:[id number] NS @ 10mls/hr 140 Sodium Chloride 0.9% 1, 300 600 150 000 ml @ 50 mls/hr IV . Q20H [facility] Rx#:[id number] Intake, IV Titration 76.475 363.30 Amount Propofol 1,000 mg In 76.475 363.30 Empty Bag 1 bag @ Titrate IV .Q0M [facility] Rx#: [id number] Tube Feeding 243 297 54 Other 30 90 Output: Urine 630 780 155 Other: Voiding Method Indwelling Catheter Indwelling Catheter Indwelling Catheter # Bowel Movements 1 ABP, PAP, CO, CI - Last Documented Arterial Blood Pressure 165/76 On examination his obtunded sedated intubated. HEENT exam no JVP neck is supple no facial asymmetry pupils are equal Lungs are clear to auscultation good air entry bilaterally Heart sounds are unremarkable no murmur rub gallop is in normal sinus rhythm Abdomen soft non-distended Extremity exam demonstrated no edema Neurologically obtunded sedated intubated - Labs CBC & Chem 7: 04/03/19 04:15 04/03/19 04:15 Labs: Abnormal Lab Results - Last 24 Hours (Table) 04/02/19 04/02/19 04/02/19 Range/Units 11:33 17:27 23:25 WBC (3.8-10.6) k/uL Hgb (13.0-17.5) gm/dL Neutrophils # (1.3-7.7) k/uL Basophils # (0-0.2) k/uL ABG pCO2 (35-45) mmHg ABG pO2 (83-108) mmHg ABG HCO3 (21-25) mmol/L ABG Total CO2 (19-24) mmol/L ABG O2 Saturation (94-97) % Sodium (137-145) mmol/L Chloride (98-107) mmol/L Carbon Dioxide (22-30) mmol/L Creatinine (0.66-1.25) mg/dL Glucose (74-99) mg/dL POC Glucose (mg/dL) 133 H 127 H 123 H (75-99) mg/dL Calcium (8.4-10.2) mg/dL 04/03/19 04/03/19 04/03/19 Range/Units 04:15 04:15 06:00 WBC 16.8 H (3.8-10.6) k/uL Hgb 12.6 L (13.0-17.5) gm/dL Neutrophils # 10.6 H (1.3-7.7) k/uL Basophils # 0.4 H (0-0.2) k/uL ABG pCO2 (35-45) mmHg ABG pO2 (83-108) mmHg ABG HCO3 (21-25) mmol/L ABG Total CO2 (19-24) mmol/L ABG O2 Saturation (94-97) % Sodium 134 L (137-145) mmol/L Chloride 95 L (98-107) mmol/L Carbon Dioxide 37 H (22-30) mmol/L Creatinine 0.56 L (0.66-1.25) mg/dL Glucose 132 H (74-99) mg/dL POC Glucose (mg/dL) 111 H (75-99) mg/dL Calcium 8.2 L (8.4-10.2) mg/dL 04/03/19 Range/Units 07:55 WBC (3.8-10.6) k/uL Hgb (13.0-17.5) gm/dL Neutrophils # (1.3-7.7) k/uL Basophils # (0-0.2) k/uL ABG pCO2 57 H (35-45) mmHg ABG pO2 111 H (83-108) mmHg ABG HCO3 37 H (21-25) mmol/L ABG Total CO2 39 H (19-24) mmol/L ABG O2 Saturation 98.5 H (94-97) % Sodium (137-145) mmol/L Chloride (98-107) mmol/L Carbon Dioxide (22-30) mmol/L Creatinine (0.66-1.25) mg/dL Glucose (74-99) mg/dL POC Glucose (mg/dL) (75-99) mg/dL Calcium (8.4-10.2) mg/dL Microbiology - Last 24 Hours (Table) 03/29/19 16:50 Blood Culture - Preliminary Blood No Growth after 96 hours 03/31/19 17:38 Gram Stain - Final Sputum Sputum Culture - Final Enterobacter cloacae Assessment and Plan Assessment: Impression 1. Severe hyponatremia improved from 111-130 > 134 with 3% saline, discontinued 2 days ago and changed over to normal saline yesterday. Cause possibly is euvolemic in relation to his psychiatric illnesses or his medications. Currentl y he is on tube feedings and normal saline at 50 an hour 2. Status post intubation because of aspiration pneumonia with atelectasis 3. History of schizophrenia 4. Blood gases show pH of 7.43, pCO2 is 57 and pO2 is 111 on 50% FiO2, consistent with alkalemia which occurred 2 days ago on 04/01/2019 and is explained on the basis improvement in the respiratory acidosis and a lagging compensate 3 metabolic alkalosis that takes time to recover. Compounding this is the fact that the metabolic alkalosis worsening before then was then additional element of primary metabolic alkalosis, and may be secondary to the steroids Recommendation 1. Will continued the IV saline at 50 an hour which will help the metabolic alkalosis. 2. Repeat his labs tomorrow. 3. Hold off any diuretics.
[2019-04-03 11:58] LABS: Glucose,Whole Blood 114 mg/dL (75-99)
--- NOTE | 2019-04-03 13:51 | P.PN ---
Subjective 63-year-old white male, poor historian, known history of schizophrenia, hypertension, patient is on multiple psychiatric medications, presented to the ER with mostly mental status change and worsening confusion. Patient was found to have extremely low sodium of 111, and his chest x-ray is suggestive of right lower lobe aspiration pneumonia. Patient was noted to have leukocytosis, he was noted to be hypovolemic clinically, and patient was initially started on 3% saline his repeat serum sodium today is 117. Nephrology has the patient on cons ultation, urine and serum osmolalities are pending. Considering the patient was admitted to the ICU and he was placed on 3% hypertonic saline, I was asked to see him on consultation. However upon my evaluation of the patient, he seems to be confused, in no form of respiratory distress, and no further information could be obtained from the patient himself. No family members at bedside. Reevaluated today on 03/31/2019, patient remains in the ICU, his pulmonary status is rather marginal. Patient is not doing well with incentive spirometry, and he does not follow instructions as far as deep coughing and deep breathing and clearing secretions. He does sound wet, and crackly, but the patient does not cough to clear his secretions. Chest x-ray showed mild pulmonary vascular congestion, and right lower lobe atelectasis, possibly right sided pneumonia. Sodium today is up to 121. His renal profile is normal BUN is 10 and creatinine 0.57. WBC count is 20.1. Remains on antibiotics for presumptive aspiration. Patient was seen by nephrology yesterday, and he was felt to have hypovolemic hyponatremia. Patient continues to have a safety glass installer at bedside. And he continues to be confused, and lethargic. At times he tries to get out of bed, and he is not coherent. Reevaluated today on 04/01/2019, patient deteriorated yesterday significantly. Around 5:00 yesterday, patient developed hypoxic and hypercapnic respiratory failure, I happened to be in the ICU at the time, patient was on nonrebreather mask, and when I assessed him, he was extremely difficult to arouse. Could not be aroused, and he had significant amount of wheezing. And he was using his accessory muscles to breathe. Hence intubated the patient immediately, placed on mechanical ventilation, and placed on propofol overnight. He was placed on bronchodilators, steroids. And reevaluated today. Chest x-ray is showing improvement in his right lower lobe pneumonia and atelectasis. His ventilator settings are assist control rate of 20, tidal volume of 500, FiO2 is 50% and PEEP of 5. Propofol is at 50 mcg/kg/m. Not requiring any pressors. ABG this morning showed a pO2 of 101 pCO2 of 43 pH of 7.47. Sodium is up to 127 today. WBC count is 17.3 hemoglobin is 12.5. Renal functioning is normal. Blood cul tures are negative so far. Sputum cultures are pending. Patient remains on Unasyn, bronchodilators, Lovenox, methylprednisolone for his COPD exacerbation, he is also on GI and DVT prophylaxis. Patient is on Lovenox. 04/02/2019 Patient remains intubated patient remains hypercapnic sick and hypercapnic because of which the activation was not attempted today. Patient remains on pressor support patient is on minimal vent settings at this time patient on 50 mL of normal saline as it was believed that patient has uremic hyponatremia improved with the 3% saline and now patient has some metabolic alkalosis partly because of the respiratory compensation and the there may be a competent of the contraction alkalosis. His serum sodium is 130on admission serum sodium is 114. 04/03/2019 Patient's serum sodium did improve patient remains intubated patient will be on sedation vacation today no plans on weaning trial today as per pulmonology. Review of systems: Unable to obtain as patient is intubated and sedated All inpatient medications were reviewed and appropriate changes in these medic ations as dictated in the interval history and assessment and plan. Objective - Vital Signs Vital signs: Vital Signs Temp 99.3 F 04/03/19 08:00 Pulse 77 04/03/19 12:01 Resp 20 04/03/19 11:00 BP 100/85 04/02/19 08:00 Pulse Ox 98 04/03/19 11:00 Intake & Output 04/02/19 04/03/19 04/03/19 18:59 06:59 18:59 Intake Total 828.254 3065.30 580.965 Output Total 630 780 235 Balance 359.475 770.30 345.965 Weight 104 kg Intake: IV 640 800 250 Ampicillin-Sulbactam 3 gm 200 200 In Sodium Chloride 0.9% 100 ml @ 200 mls/hr IVPB Q6HR [facility] Rx#:[id number] NS @ 10mls/hr 140 Sodium Chloride 0.9% 1, 300 600 250 000 ml @ 50 mls/hr IV . Q20H [facility] Rx#:[id number] Intake, IV Titration 76.475 363.30 195.965 Amount Propofol 1,000 mg In 76.475 363.30 195.965 Empty Bag 1 bag @ Titrate IV .Q0M [facility] Rx#: [id number] Tube Feeding 243 297 135 Other 30 90 Output: Urine 630 780 235 Other: Voiding Method Indwelling Catheter Indwelling Catheter Indwelling Catheter # Bowel Movements 1 ABP, PAP, CO, CI - Last Documented Arterial Blood Pressure 150/72 - Exam Physical Exam: Physical examination revealed a 63-year-old white male, remains on propofol, sedated, intubated Head: Atraumatic normocephalic. Endotracheal tube and orogastric tube are intact HEENT:[Neck is supple.] [No neck masses.] [No thyromegaly.] [No JVD.] PERRLA, EOMI, dry mucous membranes noted. No icterus. Chest: Wheezing on exam Cardiac Exam: [Normal S1 and S2, no S3 gallop, no murmur.] Abdomen: Obese, [Soft, nontender, no megaly, no rebound, no guarding, normal bowel sounds.] Extremities: [No clubbing, no edema, no cyanosis.] Neurological Exam: Cannot be assessed, patient is sedated on propofol. Psychiatric: Cannot be assessed. Skin: Healing skin laceration noted in the left index finger.scabs Formation is noted. Related to recent abscess - Labs CBC & Chem 7: 04/03/19 04:15 04/03/19 04:15 Labs: Abnormal Lab Results - Last 24 Hours (Table) 04/02/19 04/02/19 04/03/19 Range/Units 17:27 23:25 04:15 WBC 16.8 H (3.8-10.6) k/uL Hgb 12.6 L (13.0-17.5) gm/dL Neutrophils # 10.6 H (1.3-7.7) k/uL Basophils # 0.4 H (0-0.2) k/uL ABG pCO2 (35-45) mmHg ABG pO2 (83-108) mmHg ABG HCO3 (21-25) mmol/L ABG Total CO2 (19-24) mmol/L ABG O2 Saturation (94-97) % Sodium (137-145) mmol/L Chloride (98-107) mmol/L Carbon Dioxide (22-30) mmol/L Creatinine (0.66-1.25) mg/dL Glucose (74-99) mg/dL POC Glucose (mg/dL) 127 H 123 H (75-99) mg/dL Calcium (8.4-10.2) mg/dL 04/03/19 04/03/19 04/03/19 Range/Units 04:15 06:00 07:55 WBC (3.8-10.6) k/uL Hgb (13.0-17.5) gm/dL Neutrophils # (1.3-7.7) k/uL Basophils # (0-0.2) k/uL ABG pCO2 57 H (35-45) mmHg ABG pO2 111 H (83-108) mmHg ABG HCO3 37 H (21-25) mmol/L ABG Total CO2 39 H (19-24) mmol/L ABG O2 Saturation 98.5 H (94-97) % Sodium 134 L (137-145) mmol/L Chloride 95 L (98-107) mmol/L Carbon Dioxide 37 H (22-30) mmol/L Creatinine 0.56 L (0.66-1.25) mg/dL Glucose 132 H (74-99) mg/dL POC Glucose (mg/dL) 111 H (75-99) mg/dL Calcium 8.2 L (8.4-10.2) mg/dL 04/03/19 Range/Units 11:46 WBC (3.8-10.6) k/uL Hgb (13.0-17.5) gm/dL Neutrophils # (1.3-7.7) k/uL Basophils # (0-0.2) k/uL ABG pCO2 (35-45) mmHg ABG pO2 (83-108) mmHg ABG HCO3 (21-25) mmol/L ABG Total CO2 (19-24) mmol/L ABG O2 Saturation (94-97) % Sodium (137-145) mmol/L Chloride (98-107) mmol/L Carbon Dioxide (22-30) mmol/L Creatinine (0.66-1.25) mg/dL Glucose (74-99) mg/dL POC Glucose (mg/dL) 114 H (75-99) mg/dL Calcium (8.4-10.2) mg/dL Microbiology - Last 24 Hours (Table) 03/29/19 16:50 Blood Culture - Preliminary Blood No Growth after 96 hours 03/31/19 17:38 Gram Stain - Final Sputum Sputum Culture - Final Enterobacter cloacae Assessment and Plan Plan: -Severe hyponatremia: Multifactorial there may be a competent of psychogenic polydipsia, SIADH from medications as well as hypovolemia. 3% saline is being discontinued there is a competent of hypervolemia because of which patient was started on IV fluids as mentioned above -Acute hypoxic and hypercapnic respiratory failure syndrome with COPD exacerbation and may be a right lower lobe pneumonia and aspiration pneumonia because of which the patient is on Unasyn at this time. -Mediastinal lymphadenopathy which need to be followed as an outpatient once he is stable with repeat CAT scan. -Metabolic encephalopathy secondary to hyponatremia -COPD with acute exacerbation patient systemic steroids -Type 2 diabetes mellitus -Schizophrenia -Nicotine abuse for above-mentioned chronic medical problems patient will be resumed on appropriate home medications whenever he can tolerate oral medications. Speech therapy was consulted because of his mental status to assess if he can actually swallow
--- NOTE | 2019-04-03 14:51 | P.PN ---
Subjective Progress Note Date: 04/03/19 Principal diagnosis: Hyponatremia and metabolic encephalopathy. This is a 63-year-old white male, poor historian, known history of schizophrenia, hypertension, patient is on multiple psychiatric medications, presented to the ER with mostly mental status change and worsening confusion. Patient was found to have extremely low sodium of 111, and his chest x-ray is suggestive of right lower lobe aspiration pneumonia. Patient was noted to have leukocytosis, he was noted to be hypovolemic clinically, and patient was initially started on 3% saline his repeat serum sodium today is 117. Nephrology has the patient on consultation, urine and serum osmolalities are pending. Cons idering the patient was admitted to the ICU and he was placed on 3% hypertonic saline, I was asked to see him on consultation. However upon my evaluation of the patient, he seems to be confused, in no form of respiratory distress, and no further information could be obtained from the patient himself. No family members at bedside. Reevaluated today on 03/31/2019, patient remains in the ICU, his pulmonary status is rather marginal. Patient is not doing well with incentive spirometry, and he does not follow instructions as far as deep coughing and deep breathing and clearing secretions. He does sound wet, and crackly, but the patient does not cough to clear his secretions. Chest x-ray showed mild pulmonary vascular congestion, and right lower lobe atelectasis, possibly right sided pneumonia. Sodium today is up to 121. His renal profile is normal BUN is 10 and creatinine 0.57. WBC count is 20.1. Remains on antibiotics for presumptive aspiration. Patient was seen by nephrology yesterday, and he was felt to have hypovolemic hyponatremia. Patient continues to have a loss prevention/safety district manager at bedside. And he continues to be confused, and lethargic. At times he tries to get out of bed, and he is not coherent. Reevaluated today on 04/01/2019, patient deteriorated yesterday significantly. Around 5:00 yesterday, patient developed hypoxic and hypercapnic respiratory failure, I happened to be in the ICU at the time, patient was on nonrebreather mask, and when I assessed him, he was extremely difficult to arouse. Could not be aroused, and he had significant amount of wheezing. And he was using his accessory muscles to breathe. Hence intubated the patient immediately, placed on mechanical ventilation, and placed on propofol overnight. He was placed on bronchodilators, steroids. And reevaluated today. Chest x-ray is showing improvement in his right lower lobe pneumonia and atelectasis. His ventilator settings are assist control rate of 20, tidal volume of 500, FiO2 is 50% and PEEP of 5. Propofol is at 50 mcg/kg/m. Not requiring any pressors. ABG this morning showed a pO2 of 101 pCO2 of 43 pH of 7.47. Sodium is up to 127 today. WBC count is 17.3 hemoglobin is 12.5. Renal functioning is normal. Blood cultures are negative so far. Sputum cultures are pending. Patient remains on Unasyn, bronchodilators, Lovenox, methylprednisolone for his COPD exacerbation, he is also on GI and DVT prophylaxis. Patient is on Lovenox. Reevaluated today on 04/02/2019, patient remains intubated, mechanically ventilated.patient is on the same ventilator settings as yesterday, and FiO2 is 50%, PEEP is 5, tidal volume is 500 assist control rate of 20.ABG today is marginal pO2 is 74 pCO2 of 55 pH of 7.42. WBC count is 17.5 hemoglobin is 12.3 sodium is better up to 130.renal profile is normal bicarb is 35.chest x-ray continues to show cardiomegaly and bibasilar airspace disease with atelectasis and possible underlying pneumonia bilaterally. Small right-sided pleural e ffusion is noted Reevaluated today on 04/03/2019, patient remains in the ICU, intubated and mechanically ventilated. His ventilator settings are tidal volume is 500 rate is 20 FiO2 40% and PEEP is 5. ABG showed a pO2 of 111 pCO2 of 57 pH of 7.43 and this was on 50% FiO2. CBC showed WBC count of 16.8 hemoglobin is 12.6 electrolytes are normal renal profile is normal. Chest x-ray showed worsening bibasilar pneumonia and small pleural effusions. Objective - Vital Signs Vital signs: Vital Signs Temp 99.6 F 04/03/19 12:00 Pulse 67 04/03/19 14:00 Resp 20 04/03/19 14:00 BP 100/85 04/02/19 08:00 Pulse Ox 97 04/03/19 14:00 Intake & Output 04/02/19 04/03/19 04/03/19 18:59 06:59 18:59 Intake Total 874.149 3266.30 722.245 Output Total 630 780 370 Balance 359.475 770.30 352.245 Weight 104 kg Intake: IV 640 800 300 Ampicillin-Sulbactam 3 gm 200 200 In Sodium Chloride 0.9% 100 ml @ 200 mls/hr IVPB Q6HR [facility] Rx#:[id number] NS @ 10mls/hr 140 Sodium Chloride 0.9% 1, 300 600 300 000 ml @ 50 mls/hr IV . Q20H [facility] Rx#:[id number] Intake, IV Titration 76.475 363.30 203.245 Amount Propofol 1,000 mg In 76.475 363.30 203.245 Empty Bag 1 bag @ Titrate IV .Q0M [facility] Rx#: [id number] Tube Feeding 243 297 189 Other 30 90 30 Output: Urine 630 780 370 Other: Voiding Method Indwelling Catheter Indwelling Catheter Indwelling Catheter # Bowel Movements 1 ABP, PAP, CO, CI - Last Documented Arterial Blood Pressure 139/68 - Exam Physical Exam: Physical examination revealed a 63-year-old white male, remains on propofol, sedated, intubated Head: Atraumatic normocephalic. Endotracheal tube and orogastric tube are intact HEENT:[Neck is supple.] [No neck masses.] [No thyromegaly.] [No JVD.] PERRLA, EOMI, dry mucous membranes noted. No icterus. Chest: [Symmetrical expansion, minimal wheezing noted bilaterally, Cardiac Exam: [Normal S1 and S2, no S3 gallop, no murmur.] Abdomen: Obese, [Soft, nontender, no megaly, no rebound, no guarding, normal bowel sounds.] Extremities: [No clubbing, no edema, no cyanosis.] Neurological Exam: Cannot be assessed, patient is sedated on propofol. Psychiatric: Cannot be assessed. Skin: Scab formation noted on the left index finger from recent injury. - Labs CBC & Chem 7: 04/03/19 04:15 04/03/19 04:15 Labs: Abnormal Lab Results - Last 24 Hours (Table) 04/02/19 04/02/19 04/03/19 Range/Units 17:27 23:25 04:15 WBC 16.8 H (3.8-10.6) k/uL Hgb 12.6 L (13.0-17.5) gm/dL Neutrophils # 10.6 H (1.3-7.7) k/uL Basophils # 0.4 H (0-0.2) k/uL ABG pCO2 (35-45) mmHg ABG pO2 (83-108) mmHg ABG HCO3 (21-25) mmol/L ABG Total CO2 (19-24) mmol/L ABG O2 Saturation (94-97) % Sodium (137-145) mmol/L Chloride (98-107) mmol/L Carbon Dioxide (22-30) mmol/L Creatinine (0.66-1.25) mg/dL Glucose (74-99) mg/dL POC Glucose (mg/dL) 127 H 123 H (75-99) mg/dL Calcium (8.4-10.2) mg/dL 04/03/19 04/03/19 04/03/19 Range/Units 04:15 06:00 07:55 WBC (3.8-10.6) k/uL Hgb (13.0-17.5) gm/dL Neutrophils # (1.3-7.7) k/uL Basophils # (0-0.2) k/uL ABG pCO2 57 H (35-45) mmHg ABG pO2 111 H (83-108) mmHg ABG HCO3 37 H (21-25) mmol/L ABG Total CO2 39 H (19-24) mmol/L ABG O2 Saturation 98.5 H (94-97) % Sodium 134 L (137-145) mmol/L Chloride 95 L (98-107) mmol/L Carbon Dioxide 37 H (22-30) mmol/L Creatinine 0.56 L (0.66-1.25) mg/dL Glucose 132 H (74-99) mg/dL POC Glucose (mg/dL) 111 H (75-99) mg/dL Calcium 8.2 L (8.4-10.2) mg/dL 04/03/19 Range/Units 11:46 WBC (3.8-10.6) k/uL Hgb (13.0-17.5) gm/dL Neutrophils # (1.3-7.7) k/uL Basophils # (0-0.2) k/uL ABG pCO2 (35-45) mmHg ABG pO2 (83-108) mmHg ABG HCO3 (21-25) mmol/L ABG Total CO2 (19-24) mmol/L ABG O2 Saturation (94-97) % Sodium (137-145) mmol/L Chloride (98-107) mmol/L Carbon Dioxide (22-30) mmol/L Creatinine (0.66-1.25) mg/dL Glucose (74-99) mg/dL POC Glucose (mg/dL) 114 H (75-99) mg/dL Calcium (8.4-10.2) mg/dL Microbiology - Last 24 Hours (Table) 03/29/19 16:50 Blood Culture - Preliminary Blood No Growth after 96 hours 03/31/19 17:38 Gram Stain - Final Sputum Sputum Culture - Final Enterobacter cloacae Assessment and Plan Assessment: Impression: Acute hypoxic and hypercapnic respiratory failure secondary to acute exacerbation of COPD. and by basilar pneumonia likely is related to aspiration. Severe hyponatremia, possible SIADH. Could be related to his psychiatric medications.improving, responded well to treatment. Mental status change, acute metabolic encephalopathy secondary to hyponatremia History of type 2 diabetes. History of schizophrenia History of nicotine dependence syndrome. Possible right lower lobe aspiration pneumonia. Recommendation: Continue ventilatory support. Continue nutritional support.patient is tolerating enteral feeding. Continue GI and DVT prophylaxis. Continue bronchodilators. Continue antibiotics and steroids. Continue to monitor the patient in the ICU, oxygenation is improving based on the ABG. cargo and ramp services manager to evaluate and address possibly getting a public guardian on this patient. Critical care time is 35 Considering his baseline mental status and schizophrenia, patient will be difficult to wean, would not be surprised of the patient's end up requiring tracheostomy and PEG tube placement however there is no legal guardian at present to address those issues with. We'll continue to follow. Time with Patient: Greater than 30
[2019-04-03 18:52] LABS: Glucose,Whole Blood 91 mg/dL (75-99)
[2019-04-03 23:58] LABS: Glucose,Whole Blood 101 mg/dL (75-99)
[2019-04-04] MEDS: PROPOFOL 1,000 MG in EMPTY BAG 1 BAG IV SCH ×5 (00:04→23:02)
[2019-04-04] MEDS: AMPICILLIN-SULBACTAM 3 GM in SODIUM CHLORIDE 0.9% 100 ML IVPB SCH ×2 (00:05→06:22)
[2019-04-04] MEDS: INSULIN ASPART (NovoLOG) 100 UNIT/ML VIAL SQ SCH ×5 (01:08→23:30)
[2019-04-04 04:27] LABS: ABG HCO3 36 mmol/L (21-25); ABG Oxygen Saturation 97.3 % (94-97); ABG PCO2 53 mmHg (35-45); ABG PH 7.44 (7.35-7.45); ABG PO2 88 mmHg (83-108); ABG TCO2 38 mmol/L (19-24)
[2019-04-04 04:41] LABS: Allen Test Performed? no
[2019-04-04 04:55] LABS: HCT 38.3 % (39.0-53.0); HGB 12.3 gm/dL (13.0-17.5); MCH 29.3 pg (25.0-35.0); MCHC 32.1 g/dL (31.0-37.0); MCV 91.4 fL (80.0-100.0); Mean Platelet Volume 7.8; Platelet Count 252 k/uL (150-450); RBC 4.18 m/uL (4.30-5.90); RDW 13.2 % (11.5-15.5); WBC 18.4 k/uL (3.8-10.6)
[2019-04-04 05:08] LABS: African American GFR (CKD) >90 (>60 ml/min/1.73 sqM); Anion Gap 4 mmol/L; Blood Urea Nitrogen 20 mg/dL (9-20); Calcium 7.8 mg/dL (8.4-10.2); Carbon Dioxide 34 mmol/L (22-30); Chloride 97 mmol/L (98-107); Glucose 115 mg/dL (74-99); Non-African American GFR(CKD) >90 (>60 ml/min/1.73 sqM); Potassium 4.7 mmol/L (3.5-5.1); Sodium 135 mmol/L (137-145)
[2019-04-04 05:52] LABS: Band Neutrophils % 1 %; Lymphocytes # (M) 4.23 k/uL (1.0-4.8); Neutrophils % (M) 70 %; Nucleated Red Blood Cells 0 /100 WBC (0-0); Total Cells Counted 100
[2019-04-04 06:14] LABS: Glucose,Whole Blood 111 mg/dL (75-99)
[2019-04-04] MEDS: SODIUM CHLORIDE 0.9% 1,000 ML IV SCH (06:21)
[2019-04-04] MEDS: methylPREDNISolone SOD SUCCI 40 MG/ML 1 ML VIAL IV SCH ×4 (06:22→23:13)
[2019-04-04] MEDS: IPRATROPIUM-ALBUTEROL 3 ML NEB INHALATION PRN (07:30)
[2019-04-04] MEDS: BUDESONIDE 0.5 MG/2 ML NEBU INHALATION SCH (07:30)
--- NOTE | 2019-04-04 08:19 | XR ---
EXAMINATION TYPE: XR chest 1V portable DATE OF EXAM: 04/04/2019 CLINICAL HISTORY: Difficulty breathing progress study. TECHNIQUE: Single AP portable upright view of the chest is obtained. COMPARISON: Chest x-ray from one day earlier and older studies. FINDINGS: An endotracheal tube, orogastric tube, and right internal jugular central venous catheter are all stable in appearance. Persistent cardiomegaly with bibasilar opacities. Upper lungs remain clear without pneumothorax. Incr easing central vascular congestion thought present. Osseous structures intact. IMPRESSION: Worsening central vascular congestion on background cardiomegaly suggests worsening CHF e xacerbation. Correlate clinically. Suspect stable small bilateral pleural effusions and associated bi basilar atelectasis and/or infiltrates.
[2019-04-04] MEDS: NOREPINEPHRINE 4 MG in SODIUM CHLORIDE 0.9% 250 ML IV SCH ×2 (08:21→14:29)
[2019-04-04] MEDS: CHLORHEXIDINE GLUCONATE 15 ML CUP MUCOUS MEM SCH ×2 (08:25→20:27)
[2019-04-04] MEDS: PANTOPRAZOLE 40 MG/10 ML VIAL IV SCH (08:26)
[2019-04-04] MEDS: ENOXAPARIN 40 MG/0.4 ML SYRINGE SQ SCH (08:26)
--- NOTE | 2019-04-04 09:04 | P.PN ---
Subjective Principal diagnosis: Patient is seen in follow-up for hyponatremia. Sodium level 135 today. Remains intubated. Receiving tube feeding. Also maintained on normal saline at 50 mL an hour. Vital signs are stable. General: The patient appeared well nourished and normally developed. HEENT: Head exam is unremarkable. Neck is without jugular venous distension. Intubated. LUNGS: Lungs are clear to auscultation and percussion. Breath sounds decreased. HEART: Rate and Rhythm are regular. First and second heart sounds normal. No mur murs, rubs or gallops. ABDOMEN: Abdominal exam reveals normal bowel sounds. Non-tender and non-dist ended. EXTREMITITES: No clubbing, cyanosis, or edema. Objective - Vital Signs Vital signs: Vital Signs Temp 99.7 F H 04/04/19 08:00 Pulse 60 04/04/19 08:00 Resp 20 04/04/19 08:00 BP 100/85 04/02/19 08:00 Pulse Ox 98 04/04/19 08:00 Intake & Output 04/03/19 04/04/19 04/04/19 18:59 06:59 18:59 Intake Total 6270.626 4515.56 77 Output Total 550 870 70 Balance 702.965 635.56 7 Weight 102 kg Intake: IV 600 740 50 Ampicillin-Sulbactam 3 gm 100 200 In Sodium Chloride 0.9% 100 ml @ 200 mls/hr IVPB Q6HR [facility] Rx#:[id number] Sodium Chloride 0.9% 1, 500 540 50 000 ml @ 50 mls/hr IV . Q20H [facility] Rx#:[id number] Intake, IV Titration 295.965 270.56 Amount Propofol 1,000 mg In 295.965 270.56 Empty Bag 1 bag @ Titrate IV .Q0M [facility] Rx#: [id number] Tube Feeding 297 405 27 Other 60 90 Output: Urine 550 870 70 Other: Voiding Method Indwelling Catheter Indwelling Catheter ABP, PAP, CO, CI - Last Documented Arterial Blood Pressure 136/65 - Labs CBC & Chem 7: 04/04/19 04:40 04/04/19 04:40 Labs: Abnormal Lab Results - Last 24 Hours (Table) 04/03/19 04/03/19 04/04/19 Range/Units 11:46 23:45 04:26 WBC (3.8-10.6) k/uL RBC (4.30-5.90) m/uL Hgb (13.0-17.5) gm/dL Hct (39.0-53.0) % Neutrophils # (Manual) (1.3-7.7) k/uL Monocytes # (Manual) (0-1.0) k/uL ABG pCO2 53 H (35-45) mmHg ABG HCO3 36 H (21-25) mmol/L ABG Total CO2 38 H (19-24) mmol/L ABG O2 Saturation 97.3 H (94-97) % Sodium (137-145) mmol/L Chloride (98-107) mmol/L Carbon Dioxide (22-30) mmol/L Creatinine (0.66-1.25) mg/dL Glucose (74-99) mg/dL POC Glucose (mg/dL) 114 H 101 H (75-99) mg/dL Calcium (8.4-10.2) mg/dL 04/04/19 04/04/19 04/04/19 Range/Units 04:40 04:40 06:03 WBC 18.4 H (3.8-10.6) k/uL RBC 4.18 L (4.30-5.90) m/uL Hgb 12.3 L (13.0-17.5) gm/dL Hct 38.3 L (39.0-53.0) % Neutrophils # (Manual) 13.00 H (1.3-7.7) k/uL Monocytes # (Manual) 1.10 H (0-1.0) k/uL ABG pCO2 (35-45) mmHg ABG HCO3 (21-25) mmol/L ABG Total CO2 (19-24) mmol/L ABG O2 Saturation (94-97) % Sodium 135 L (137-145) mmol/L Chloride 97 L (98-107) mmol/L Carbon Dioxide 34 H (22-30) mmol/L Creatinine 0.57 L (0.66-1.25) mg/dL Glucose 115 H (74-99) mg/dL POC Glucose (mg/dL) 111 H (75-99) mg/dL Calcium 7.8 L (8.4-10.2) mg/dL Microbiology - Last 24 Hours (Table) 03/29/19 16:50 Blood Culture - Preliminary Blood No Growth after 120 hours Assessment and Plan Plan: Assessment: 1. Severe hyponatremia status post 3% saline. Etiology is SSRI use and PNA. Improved. 2. Pneumonia maintained on antibiotics. 3. History of schizophrenia. Plan: Hep-Lock IV fluids. Maintain tube feeding. Wean FiO2.
[2019-04-04 10:47] LABS: ABG Base Excess 10.3 mmol/L; ABG HCO3 36 mmol/L (21-25); ABG Oxygen Saturation 96.4 % (94-97); ABG PCO2 63 mmHg (35-45); ABG PH 7.36 (7.35-7.45); ABG PO2 88 mmHg (83-108); ABG TCO2 38 mmol/L (19-24); Allen Test Performed? Yes
[2019-04-04] MEDS ORDERED: FUROSEMIDE 10 MG/ML 4 ML VIAL IV STA (10:51)
--- NOTE | 2019-04-04 10:55 | P.PN ---
Subjective Progress Note Date: 04/04/19 Principal diagnosis: Hyponatremia and metabolic encephalopathy, acute hypercapnic and hypoxemic respiratory failure This is a 63-year-old white male, poor historian, known history of schizophrenia, hypertension, patient is on multiple psychiatric medications, presented to the ER with mostly mental status change and worsening confusion. Patient was found to have extremely low sodium of 111, and his chest x-ray is suggestive of right lower lobe aspiration pneumonia. Patient was noted to have leukocytosis, he was noted to be hypovolemic clinically, and patient was initially started on 3% saline his repeat serum sodium today is 117. Nephrology has the patient on consultation, urine and serum osmolalities are pending. Considering the patient was admitted to the ICU and he was placed on 3% hypertonic saline, I was asked to see him on consultation. However upon my eval uation of the patient, he seems to be confused, in no form of respiratory distress, and no further information could be obtained from the patient himself. No family members at bedside. Reevaluated today on 03/31/2019, patient remains in the ICU, his pulmonary status is rather marginal. Patient is not doing well with incentive spirometry, and he does not follow instructions as far as deep coughing and deep breathing and clearing secretions. He does sound wet, and crackly, but the patient does not cough to clear his secretions. Chest x-ray showed mild pulmonary vascular congestion, and right lower lobe atelectasis, possibly right sided pneumonia. Sodium today is up to 121. His renal profile is normal BUN is 10 and creatinine 0.57. WBC count is 20.1. Remains on antibiotics for presumptive aspiration. Patient was seen by nephrology yesterday, and he was felt to have hypovolemic hyponatremia. Patient continues to have a safety director at bedside. And he continues to be confused, and lethargic. At times he tries to get out of bed, and he is not coherent. Reevaluated today on 04/01/2019, patient deteriorated yesterday significantly. Around 5:00 yesterday, patient developed hypoxic and hypercapnic respiratory failure, I happened to be in the ICU at the time, patient was on nonrebreather mask, and when I assessed him, he was extremely difficult to arouse. Could not be aroused, and he had significant amount of wheezing. And he was using his accessory muscles to breathe. Hence intubated the patient immediately, placed on mechanical ventilation, and placed on propofol overnight. He was placed on bronchodilators, steroids. And reevaluated today. Chest x-ray is showing improvement in his right lower lobe pneumonia and atelectasis. His ventilator settings are assist control rate of 20, tidal volume of 500, FiO2 is 50% and PEEP of 5. Propofol is at 50 mcg/kg/m. Not requiring any pressors. ABG this morning showed a pO2 of 101 pCO2 of 43 pH of 7.47. Sodium is up to 127 today. WBC count is 17.3 hemoglobin is 12.5. Renal functioning is normal. Blood cultures are negative so far. Sputum cultures are pending. Patient remains on Unasyn, bronchodilators, Lovenox, methylprednisolone for his COPD exacerbation, he is also on GI and DVT prophylaxis. Patient is on Lovenox. Reevaluated today on 04/02/2019, patient remains intubated, mechanically ventilated.patient is on the same ventilator settings as yesterday, and FiO2 is 50%, PEEP is 5, tidal volume is 500 assist control rate of 20.ABG today is marginal pO2 is 74 pCO2 of 55 pH of 7.42. WBC count is 17.5 hemoglobin is 12.3 sodium is better up to 130.renal profile is normal bicarb is 35.chest x-ray co ntinues to show cardiomegaly and bibasilar airspace disease with atelectasis and possible underlying pneumonia bilaterally. Small right-sided pleural effusion is noted Reevaluated today on 04/03/2019, patient remains in the ICU, intubated and mechanically ventilated. His ventilator settings are tidal volume is 500 rate is 20 FiO2 40% and PEEP is 5. ABG showed a pO2 of 111 pCO2 of 57 pH of 7.43 and this was on 50% FiO2. CBC showed WBC count of 16.8 hemoglobin is 12.6 electrolytes are normal renal profile is normal. Chest x-ray showed worsening bibasilar pneumonia and small pleural effusions. On 04/04/2019 patient seen in follow-up in intensive care unit. He is intubated, sedated on mechanical ventilator, current vent settings are as control mode of ventilation with a rate of 20, tidal M5 100, FiO2 40% and PEEP of 5, this morning blood gases show pO2 of 80, pCO2 53, and pH is 7.44. Maintenance IV fluids include 0.9 and a rate of 10, to prevent at a rate of 50 mics per kilo per minute. Antibiotic coverage in the form of Unasyn however sputum culture showed Enterobacter cloacae which was resistant to Unasyn, and antibiotic coverage was switched to Zosyn, patient is currently sedated, opens his eyes and follow simple commands, we'll proceed with spontaneous breathing trials with CPAP of 5 and pressure support of 5. This morning's blood work was reviewed, showing white blood cell count of 18.4, hemoglobin of 12.3, sodium was 135, potassium is 4.7, chloride is 97, CO2 34, BUN is 20 creatinine 0.57. Lung sounds are diminished, with a few scattered rhonchi, apparently patient still has significant amount of orotracheal secretions. Objective - Vital Signs Vital signs: Vital Signs Temp 99.7 F H 04/04/19 08:00 Pulse 75 04/04/19 10:00 Resp 20 04/04/19 10:00 BP 100/85 04/02/19 08:00 Pulse Ox 97 04/04/19 10:00 Intake & Output 04/03/19 04/04/19 04/04/19 18:59 06:59 18:59 Intake Total 8487.816 4864.56 382.76 Output Total 550 870 270 Balance 702.965 635.56 112.76 Weight 102 kg Intake: IV 600 740 160 Ampicillin-Sulbactam 3 gm 100 200 In Sodium Chloride 0.9% 100 ml @ 200 mls/hr IVPB Q6HR [facility] Rx#:[id number] NS @ 10mls/hr 10 Sodium Chloride 0.9% 1, 500 540 150 000 ml @ 50 mls/hr IV . Q20H [facility] Rx#:[id number] Intake, IV Titration 295.965 270.56 84.76 Amount Propofol 1,000 mg In 295.965 270.56 84.76 Empty Bag 1 bag @ Titrate IV .Q0M [facility] Rx#: [id number] Tube Feeding 297 405 108 Other 60 90 30 Output: Urine 550 870 270 Other: Voiding Method Indwelling Catheter Indwelling Catheter Indwelling Catheter ABP, PAP, CO, CI - Last Documented Arterial Blood Pressure 135/67 - Exam GENERAL EXAM: Alert, intubated, 63-year-old white male, comfortable, comfortable in no apparent distress. HEAD: Normocephalic/atraumatic. EYES: Normal reaction of pupils, equal size. Conjunctiva pink, sclera white. NOSE: Clear with pink turbinates. THROAT: No erythema or exudates. NECK: No masses, no JVD, no thyroid enlargement, no adenopathy. CHEST: No chest wall deformity. Symmetrical expansion. LUNGS: Equal air entry with a few scattered rhonchi, no wheeze, rhonchi or dullness. CVS: Regular rate and rhythm, normal S1 and S2, no gallops, no murmurs, no rubs ABDOMEN: Soft, nontender. No hepatosplenomegaly, normal bowel sounds, no guarding or rigidity. EXTREMITIES: No clubbing, no edema, no cyanosis, 2+ pulses and upper and lower extremities. MUSCULOSKELETAL: Muscle strength and tone normal. SPINE: No scoliosis or deformity SKIN: No rashes CENTRAL NERVOUS SYSTEM: Alert and oriented -1. No focal deficits, tone is norm al in all 4 extremities. - Labs CBC & Chem 7: 04/04/19 04:40 04/04/19 04:40 Labs: Abnormal Lab Results - Last 24 Hours (Table) 04/03/19 04/03/19 04/04/19 Range/Units 11:46 23:45 04:26 WBC (3.8-10.6) k/uL RBC (4.30-5.90) m/uL Hgb (13.0-17.5) gm/dL Hct (39.0-53.0) % Neutrophils # (Manual) (1.3-7.7) k/uL Monocytes # (Manual) (0-1.0) k/uL ABG pCO2 53 H (35-45) mmHg ABG HCO3 36 H (21-25) mmol/L ABG Total CO2 38 H (19-24) mmol/L ABG O2 Saturation 97.3 H (94-97) % Sodium (137-145) mmol/L Chloride (98-107) mmol/L Carbon Dioxide (22-30) mmol/L Creatinine (0.66-1.25) mg/dL Glucose (74-99) mg/dL POC Glucose (mg/dL) 114 H 101 H (75-99) mg/dL Calcium (8.4-10.2) mg/dL 04/04/19 04/04/19 04/04/19 Range/Units 04:40 04:40 06:03 WBC 18.4 H (3.8-10.6) k/uL RBC 4.18 L (4.30-5.90) m/uL Hgb 12.3 L (13.0-17.5) gm/dL Hct 38.3 L (39.0-53.0) % Neutrophils # (Manual) 13.00 H (1.3-7.7) k/uL Monocytes # (Manual) 1.10 H (0-1.0) k/uL ABG pCO2 (35-45) mmHg ABG HCO3 (21-25) mmol/L ABG Total CO2 (19-24) mmol/L ABG O2 Saturation (94-97) % Sodium 135 L (137-145) mmol/L Chloride 97 L (98-107) mmol/L Carbon Dioxide 34 H (22-30) mmol/L Creatinine 0.57 L (0.66-1.25) mg/dL Glucose 115 H (74-99) mg/dL POC Glucose (mg/dL) 111 H (75-99) mg/dL Calcium 7.8 L (8.4-10.2) mg/dL Microbiology - Last 24 Hours (Table) 03/29/19 16:50 Blood Culture - Preliminary Blood No Growth after 120 hours Assessment and Plan Plan: Assessment: #1. Acute hypoxic and hypercapnic respiratory failure secondary to acute exacerbation of COPD and bibasilar pneumonia related to Enterobacter cloacae #2. Severe hyponatremia, possible SIADH, could be related to psychiatric medications, improved, responded well to treatment #3. Acute mental status changes, acute metabolic encephalopathy secondary to hyponatremia #4. History of type 2 diabetes mellitus #5. History of schizophrenia #6. History of nicotine dependence syndrome #7. Possible right lower lobe aspiration pneumonia Plan: Proceed with spontaneous awakening trials and spontaneous breathing trials, with pressure support of 5 and CPAP of 5. Today's chest x-ray has been reviewed, showing worsening central vascular congestion on background cardiomegaly suggesting worsening CHF exacerbation, antibiotic coverage was switched to Zosyn, sputum culture was positive for Enterobacter. Patient failed spontaneous breathing trials, he may possibly need tracheostomy and PEG tube placement. Follow-up chest x-ray tomorrow morning, patient has failed SBT and was placed back on assist control mode of ventilation. Overall prognosis is guarded, will continue to follow I performed a history & physical examination of the patient and discussed their management with my nurse practitioner, Iraida Major. I reviewed the nurse practitioner's note and agree with the documented findings and plan of care. Lung sounds are positive for a few scattered rhonchi. The findings and the impression was discussed with the patient. I attest to the documentation by the nurse practitioner. Time with Patient: Greater than 30
[2019-04-04] MEDS: IPRATROPIUM-ALBUTEROL 3 ML NEB INHALATION SCH ×4 (11:20→23:58)
[2019-04-04] MEDS: PIPERACILLIN-TAZOBACTAM 3.375 GM in SODIUM CHLORIDE 0.9% 100 ML IVPB SCH ×3 (13:00→23:15)
--- NOTE | 2019-04-04 14:31 | P.PN ---
Subjective Progress Note Date: 04/04/19 Principal diagnosis: 63-year-old male with known history of hypertension schizophrenia came in completely confused, altered mental status. patient is unable to provide any history to me patient as he is excessively drowsy but able to wake up with verbal stimuli. But unable to provide any history. Patient is found to be severely hyponatremic also found to have aspiration pneumonia. Patient does have significant leukocytosis. Patient in the past was treated for hypovolemic as was hypovolemic hyponatremia. Patient serum sodium is extremely low at 113 on 3% saline to 117. Nephrology is following the patient I did order urine osmolality, serum osmolality urine random sodium urine didn't random creatinine urinary uric acid although these labs will not be reliable because as patient is already on saline now. 03/31/2019 Patient is currently in the ICU being closely monitored with a consultant in ergonomics and safety at the bedside. Patient continues to be confused and quite lethargic. Per sitter, patient occasionally tries to get up out of the bed but is not coherent as to what he is doing. Patient continues to fall asleep when talking with the patient but is arousable to voice. Current sodium is 121. Nephrology is following. White blood count has also improved slightly and is trending down and is currently 20.1. Today's chest x-ray shows possible underlying mild pulmonary vascular congestion with the right hilar masslike prominence and persistent right basilar obesity. 04/01/2019 Patient currently remains in the ICU and is being closely monitored and patient was intubated last night as he continued to deteriorate and developed hypoxic and hypercapnic respiratory failure. Patient was very lethargic and unarousable and patient was intubated with Dr. Miranda. Currently patient is sedated and seems to be much more comfortable. Chest x-ray today shows some improvement of the right lower lobe pneumonia. Patient's sodium is currently 126 and 3% normal saline has been discontinued. Nephrology is following. Sputum cultures thus far showing gram-negative bacilli and patient is currently on Unasyn and will continue at this time. 04/02/2019 Patient remains intubated patient remains hypercapnic sick and hypercapnic because of which the activation was not attempted today. Patient remains on pressor support patient is on minimal vent settings at this time patient on 50 mL of normal saline as it was believed that patient has uremic hyponatremia improved with the 3% saline and now patient has some metabolic alkalosis partly because of the respiratory compensation and the there may be a competent of the contraction alkalosis. His serum sodium is 130on admission serum sodium is 114. 04/03/2019 Patient's serum sodium did improve patient remains intubated patient will be on sedation vacation today no plans on weaning trial today as per pulmonology. 04/04/2019 Patient is sitting up and appears to be in no acute distress. Patient is currently being closely monitored in the ICU and will continue at this time. Patient remains ventilated and undergoing trial breathing and not tolerating well at this time. Patient will continue on the vent at this time. Pulmonary is following closely. Sputum culture results have resulted with enterobacter cloacae and IV antibiotics and been adjusted to Zosyn and will continue at this time. Patient remains on tube feedings and tolerating well thus far. Will continue to monitor closely. Serum sodium is 135 today. Willl discontinue IV fluids. Objective - Vital Signs Vital signs: Vital Signs Temp 99.7 F H 04/04/19 08:00 Pulse 68 04/04/19 11:34 Resp 20 04/04/19 10:00 BP 100/85 04/02/19 08:00 Pulse Ox 97 04/04/19 10:00 Intake & Output 04/03/19 04/04/19 04/04/19 18:59 06:59 18:59 Intake Total 5256.275 8856.56 382.76 Output Total 550 870 270 Balance 702.965 635.56 112.76 Weight 102 kg 102 kg Intake: IV 600 740 160 Ampicillin-Sulbactam 3 gm 100 200 In Sodium Chloride 0.9% 100 ml @ 200 mls/hr IVPB Q6HR [facility] Rx#:[id number] NS @ 10mls/hr 10 Sodium Chloride 0.9% 1, 500 540 150 000 ml @ 50 mls/hr IV . Q20H [facility] Rx#:[id number] Intake, IV Titration 295.965 270.56 84.76 Amount Propofol 1,000 mg In 295.965 270.56 84.76 Empty Bag 1 bag @ Titrate IV .Q0M [facility] Rx#: [id number] Tube Feeding 297 405 108 Other 60 90 30 Output: Urine 550 870 270 Other: Voiding Method Indwelling Catheter Indwelling Catheter Indwelling Catheter ABP, PAP, CO, CI - Last Documented Arterial Blood Pressure 135/67 - Exam GENERAL: 63-year-old male, awake and alert and responding to simple commands but remains intubated HEENT: Pupils are round and equally reacting to light. EOMI. No scleral icterus. No conjunctival pallor. Normocephalic, atraumatic. No pharyngeal erythema. No thyromegaly. Endotracheal tube and orogastric tube are intact CARDIOVASCULAR: S1 and S2 present. No murmurs, rubs, or gallops. PULMONARY: Lung sounds diminished at the bases with a few scattered rhonchi noted with expiratory wheezing ABDOMEN: Soft, obese, nontender, nondistended, normoactive bowel sounds. No palpable organomegaly. MUSCULOSKELETAL: No joint swelling or deformity. EXTREMITIES: No cyanosis, clubbing, or pedal edema. NEUROLOGICAL: sedated, intubated SKIN: No rashes. Left index finger noted with scabs status post recent abscess and laceration - Labs CBC & Chem 7: 04/04/19 04:40 04/04/19 04:40 Labs: Abnormal Lab Results - Last 24 Hours (Table) 04/03/19 04/04/19 04/04/19 Range/Units 23:45 04:26 04:40 WBC 18.4 H (3.8-10.6) k/uL RBC 4.18 L (4.30-5.90) m/uL Hgb 12.3 L (13.0-17.5) gm/dL Hct 38.3 L (39.0-53.0) % Neutrophils # (Manual) 13.00 H (1.3-7.7) k/uL Monocytes # (Manual) 1.10 H (0-1.0) k/uL ABG pCO2 53 H (35-45) mmHg ABG HCO3 36 H (21-25) mmol/L ABG Total CO2 38 H (19-24) mmol/L ABG O2 Saturation 97.3 H (94-97) % Sodium (137-145) mmol/L Chloride (98-107) mmol/L Carbon Dioxide (22-30) mmol/L Creatinine (0.66-1.25) mg/dL Glucose (74-99) mg/dL POC Glucose (mg/dL) 101 H (75-99) mg/dL Calcium (8.4-10.2) mg/dL 04/04/19 04/04/19 04/04/19 Range/Units 04:40 06:03 10:45 WBC (3.8-10.6) k/uL RBC (4.30-5.90) m/uL Hgb (13.0-17.5) gm/dL Hct (39.0-53.0) % Neutrophils # (Manual) (1.3-7.7) k/uL Monocytes # (Manual) (0-1.0) k/uL ABG pCO2 63 H (35-45) mmHg ABG HCO3 36 H (21-25) mmol/L ABG Total CO2 38 H (19-24) mmol/L ABG O2 Saturation (94-97) % Sodium 135 L (137-145) mmol/L Chloride 97 L (98-107) mmol/L Carbon Dioxide 34 H (22-30) mmol/L Creatinine 0.57 L (0.66-1.25) mg/dL Glucose 115 H (74-99) mg/dL POC Glucose (mg/dL) 111 H (75-99) mg/dL Calcium 7.8 L (8.4-10.2) mg/dL Microbiology - Last 24 Hours (Table) 03/29/19 16:50 Blood Culture - Preliminary Blood No Growth after 120 hours Assessment and Plan Assessment: -Severe hyponatremia: Multifactorial there may be a component of psychogenic polydipsia, SIADH from medications as well as hypovolemia. 3% saline has been discontinued there is a component of hypervolemia because of which patient was started on IV fluids as mentioned above. -Acute hypoxic and hypercapnic respiratory failure syndrome with COPD exacerbation and may be a right lower lobe pneumonia and aspiration pneumonia because of which the patient is on Unasyn at this time. -Mediastinal lymphadenopathy which need to be followed as an outpatient once he is stable with repeat CAT scan. -Metabolic encephalopathy secondary to hyponatremia -COPD with acute exacerbation patient systemic steroids -Type 2 diabetes mellitus -Schizophrenia -Nicotine abuse for above-mentioned chronic medical problems patient will be resumed on appropriate home medications whenever he can tolerate oral medications. Speech therapy was consulted because of his mental status to assess if he can actually swallow Plan: Continue current medications, management, and symptomatic treatment. Multiple medical consultations following. Patient will remain in the ICU for close monitoring at this time. Attempting to wean off the vent with breathing trials. Sputum culture finalized showing Enterobacter cloacae and antibiotics were changed to Zosyn and will continue at this time. IV fluids are discontinued. Will repeat a.m. labs. Further recommendations to follow.
[2019-04-04 18:27] LABS: Glucose,Whole Blood 113 mg/dL (75-99)
[2019-04-04] MEDS: FORMOTEROL FUMARATE 20 MCG/2 ML NEBU INHALATION SCH (19:16)
[2019-04-04] MEDS: BUDESONIDE 1 MG/2 ML NEBU INHALATION SCH (19:16)
[2019-04-04 23:30] LABS: Glucose,Whole Blood 153 mg/dL (75-99)
[2019-04-05] MEDS: methylPREDNISolone SOD SUCCI 40 MG/ML 1 ML VIAL IV SCH ×3 (01:06→18:41)
[2019-04-05] MEDS: PROPOFOL 1,000 MG in EMPTY BAG 1 BAG IV SCH ×2 (01:35→04:30)
[2019-04-05] MEDS: IPRATROPIUM-ALBUTEROL 3 ML NEB INHALATION SCH ×5 (03:39→20:45)
[2019-04-05 04:38] LABS: HGB 11.7 gm/dL (13.0-17.5); MCH 29.1 pg (25.0-35.0); MCHC 31.7 g/dL (31.0-37.0); MCV 91.8 fL (80.0-100.0); Mean Platelet Volume 7.6; Platelet Count 212 k/uL (150-450); RBC 4.03 m/uL (4.30-5.90); RDW 13.2 % (11.5-15.5); WBC 14.8 k/uL (3.8-10.6)
[2019-04-05 04:41] LABS: ABG Base Excess 13.4 mmol/L; ABG HCO3 38 mmol/L (21-25); ABG Oxygen Saturation 97.6 % (94-97); ABG PCO2 55 mmHg (35-45); ABG PH 7.44 (7.35-7.45); ABG PO2 93 mmHg (83-108); ABG TCO2 39 mmol/L (19-24); Allen Test Performed? Yes
[2019-04-05 04:48] LABS: African American GFR (CKD) >90 (>60 ml/min/1.73 sqM); Anion Gap 4 mmol/L; Blood Urea Nitrogen 22 mg/dL (9-20); Calcium 8.2 mg/dL (8.4-10.2); Carbon Dioxide 37 mmol/L (22-30); Chloride 96 mmol/L (98-107); Glucose 144 mg/dL (74-99); Non-African American GFR(CKD) >90 (>60 ml/min/1.73 sqM); Potassium 4.6 mmol/L (3.5-5.1); Sodium 137 mmol/L (137-145)
[2019-04-05 05:48] LABS: Glucose,Whole Blood 144 mg/dL (75-99)
[2019-04-05] MEDS: INSULIN ASPART (NovoLOG) 100 UNIT/ML VIAL SQ SCH ×3 (06:03→18:44)
[2019-04-05] MEDS: BUDESONIDE 1 MG/2 ML NEBU INHALATION SCH ×2 (07:11→20:45)
[2019-04-05] MEDS: FORMOTEROL FUMARATE 20 MCG/2 ML NEBU INHALATION SCH ×2 (07:11→20:45)
--- NOTE | 2019-04-05 08:41 | P.PN ---
Subjective Progress Note Date: 04/05/19 Principal diagnosis: Hyponatremia and metabolic encephalopathy, acute hypercapnic and hypoxemic respiratory failure This is a 63-year-old white male, poor historian, known history of schizophrenia, hypertension, patient is on multiple psychiatric medications, presented to the ER with mostly mental status change and worsening confusion. Patient was found to have extremely low sodium of 111, and his chest x-ray is suggestive of right lower lobe aspiration pneumonia. Patient was noted to have leukocytosis, he was noted to be hypovolemic clinically, and patient was initially started on 3% saline his repeat serum sodium today is 117. Nephrology has the patient on consultation, urine and serum osmolalities are pending. Considering the patient was admitted to the ICU and he was placed on 3% hypertonic saline, I was asked to see him on consultation. However upon my eval uation of the patient, he seems to be confused, in no form of respiratory distress, and no further information could be obtained from the patient himself. No family members at bedside. Reevaluated today on 03/31/2019, patient remains in the ICU, his pulmonary status is rather marginal. Patient is not doing well with incentive spirometry, and he does not follow instructions as far as deep coughing and deep breathing and clearing secretions. He does sound wet, and crackly, but the patient does not cough to clear his secretions. Chest x-ray showed mild pulmonary vascular congestion, and right lower lobe atelectasis, possibly right sided pneumonia. Sodium today is up to 121. His renal profile is normal BUN is 10 and creatinine 0.57. WBC count is 20.1. Remains on antibiotics for presumptive aspiration. Patient was seen by nephrology yesterday, and he was felt to have hypovolemic hyponatremia. Patient continues to have a director of safety at bedside. And he continues to be confused, and lethargic. At times he tries to get out of bed, and he is not coherent. Reevaluated today on 04/01/2019, patient deteriorated yesterday significantly. Around 5:00 yesterday, patient developed hypoxic and hypercapnic respiratory failure, I happened to be in the ICU at the time, patient was on nonrebreather mask, and when I assessed him, he was extremely difficult to arouse. Could not be aroused, and he had significant amount of wheezing. And he was using his accessory muscles to breathe. Hence intubated the patient immediately, placed on mechanical ventilation, and placed on propofol overnight. He was placed on bronchodilators, steroids. And reevaluated today. Chest x-ray is showing improvement in his right lower lobe pneumonia and atelectasis. His ventilator settings are assist control rate of 20, tidal volume of 500, FiO2 is 50% and PEEP of 5. Propofol is at 50 mcg/kg/m. Not requiring any pressors. ABG this morning showed a pO2 of 101 pCO2 of 43 pH of 7.47. Sodium is up to 127 today. WBC count is 17.3 hemoglobin is 12.5. Renal functioning is normal. Blood cultures are negative so far. Sputum cultures are pending. Patient remains on Unasyn, bronchodilators, Lovenox, methylprednisolone for his COPD exacerbation, he is also on GI and DVT prophylaxis. Patient is on Lovenox. Reevaluated today on 04/02/2019, patient remains intubated, mechanically ventilated.patient is on the same ventilator settings as yesterday, and FiO2 is 50%, PEEP is 5, tidal volume is 500 assist control rate of 20.ABG today is marginal pO2 is 74 pCO2 of 55 pH of 7.42. WBC count is 17.5 hemoglobin is 12.3 sodium is better up to 130.renal profile is normal bicarb is 35.chest x-ray co ntinues to show cardiomegaly and bibasilar airspace disease with atelectasis and possible underlying pneumonia bilaterally. Small right-sided pleural effusion is noted Reevaluated today on 04/03/2019, patient remains in the ICU, intubated and mechanically ventilated. His ventilator settings are tidal volume is 500 rate is 20 FiO2 40% and PEEP is 5. ABG showed a pO2 of 111 pCO2 of 57 pH of 7.43 and this was on 50% FiO2. CBC showed WBC count of 16.8 hemoglobin is 12.6 electrolytes are normal renal profile is normal. Chest x-ray showed worsening bibasilar pneumonia and small pleural effusions. On 04/04/2019 patient seen in follow-up in intensive care unit. He is intubated, sedated on mechanical ventilator, current vent settings are as control mode of ventilation with a rate of 20, tidal M5 100, FiO2 40% and PEEP of 5, this morning blood gases show pO2 of 80, pCO2 53, and pH is 7.44. Maintenance IV fluids include 0.9 and a rate of 10, to prevent at a rate of 50 mics per kilo per minute. Antibiotic coverage in the form of Unasyn however sputum culture showed Enterobacter cloacae which was resistant to Unasyn, and antibiotic coverage was switched to Zosyn, patient is currently sedated, opens his eyes and follow simple commands, we'll proceed with spontaneous breathing trials with CPAP of 5 and pressure support of 5. This morning's blood work was reviewed, showing white blood cell count of 18.4, hemoglobin of 12.3, sodium was 135, potassium is 4.7, chloride is 97, CO2 34, BUN is 20 creatinine 0.57. Lung sounds are diminished, with a few scattered rhonchi, apparently patient still has significant amount of orotracheal secretions. On 04/05/2019 patient seen in follow-up in the intensive care unit, he is currently awake, he sedation is on hold, he is following simple commands, appears to be calm and not in any acute distress, he still intubated on mechanical ventilator, with the assist control mode of ventilation with a rate of 20, tidal vitamin 500, FiO2 of 40% and PEEP of 5 and this morning's blood gases showed pO2 of 93 pCO2 55 and pH of 7.44. Maintenance IV fluids at rate of 100, tube feedings of vital high-protein rate of 27 with a goal of 27. Today's chest x-ray has been reviewed showing improvement bibasilar aeration and improvement in the appearance of the right lower lobe infiltrate, residual small pleural effusions. We'll proceed with the DIS and a spontaneous breathing trials, yesterday patient was given a CPAP trial however patient failed, and post spontaneous breathing trial blood gases showed increase in his pCO2 of 10. he remains on Zosyn for antibiotic coverage, and culture showed Enterobacter cloacae, with culture showed no growth. His white count is trending down, down to 14.8, hemoglobin is 11.7, sodium is 137, potassium is 4.6, chloride is 96, CO2 is 37, B1 is 22, creatinine 0.61. She remains on IV Solu-Medrol, breathing treatments, and yesterday we gave him an extra dose of IV Lasix, he is in -975 ML negative fluid balance Objective - Vital Signs Vital signs: Vital Signs Temp 99 F 04/05/19 00:00 Pulse 67 01/21/20 07:52 Resp 20 04/05/19 07:00 BP 113/71 04/05/19 07:00 Pulse Ox 97 04/05/19 07:00 Intake & Output 04/04/19 04/05/19 04/05/19 18:59 06:59 18:59 Intake Total 673.76 880.33 Output Total 1520 1010 Balance -846.24 -129.67 Weight 102 kg 103 kg Intake: IV 340 220 0.9 Normal Saline @ 10mls 90 120 /hr Piperacillin-Tazobactam 3 100 100 .375 gm In Sodium Chloride 0.9% 100 ml @ 25 mls/hr IVPB Q8HR [facility] Rx# :[id number] Sodium Chloride 0.9% 1, 150 000 ml @ 50 mls/hr IV . Q20H [facility] Rx#:[id number] Intake, IV Titration 84.76 246.33 Amount Propofol 1,000 mg In 84.76 246.33 Empty Bag 1 bag @ Titrate IV .Q0M [facility] Rx#: [id number] Tube Feeding 189 324 Other 60 90 Output: Urine 1520 1010 Other: Voiding Method Indwelling Catheter Indwelling Catheter # Bowel Movements 2 ABP, PAP, CO, CI - Last Documented Arterial Blood Pressure 133/72 - Exam GENERAL EXAM: Alert, intubated, 63-year-old white male, comfortable, comfortable in no apparent distress. HEAD: Normocephalic/atraumatic. EYES: Normal reaction of pupils, equal size. Conjunctiva pink, sclera white. NOSE: Clear with pink turbinates. THROAT: No erythema or exudates. NECK: No masses, no JVD, no thyroid enlargement, no adenopathy. CHEST: No chest wall deformity. Symmetrical expansion. LUNGS: Equal air entry with a few scattered rhonchi, no wheeze, rhonchi or dul lness. CVS: Regular rate and rhythm, normal S1 and S2, no gallops, no murmurs, no rubs ABDOMEN: Soft, nontender. No hepatosplenomegaly, normal bowel sounds, no guarding or rigidity. EXTREMITIES: No clubbing, no edema, no cyanosis, 2+ pulses and upper and lower extremities. MUSCULOSKELETAL: Muscle strength and tone normal. SPINE: No scoliosis or deformity SKIN: No rashes CENTRAL NERVOUS SYSTEM: Alert and oriented -1. No focal deficits, tone is normal in all 4 extremities. - Labs CBC & Chem 7: 04/05/19 04:20 04/05/19 04:20 Labs: Abnormal Lab Results - Last 24 Hours (Table) 04/04/19 04/04/19 04/04/19 Range/Units 10:45 18:15 23:18 WBC (3.8-10.6) k/uL RBC (4.30-5.90) m/uL Hgb (13.0-17.5) gm/dL Hct (39.0-53.0) % ABG pCO2 63 H (35-45) mmHg ABG HCO3 36 H (21-25) mmol/L ABG Total CO2 38 H (19-24) mmol/L ABG O2 Saturation (94-97) % Chloride (98-107) mmol/L Carbon Dioxide (22-30) mmol/L BUN (9-20) mg/dL Creatinine (0.66-1.25) mg/dL Glucose (74-99) mg/dL POC Glucose (mg/dL) 113 H 153 H (75-99) mg/dL Calcium (8.4-10.2) mg/dL 04/05/19 04/05/19 04/05/19 Range/Units 04:20 04:20 04:37 WBC 14.8 H (3.8-10.6) k/uL RBC 4.03 L (4.30-5.90) m/uL Hgb 11.7 L (13.0-17.5) gm/dL Hct 37.0 L (39.0-53.0) % ABG pCO2 55 H (35-45) mmHg ABG HCO3 38 H (21-25) mmol/L ABG Total CO2 39 H (19-24) mmol/L ABG O2 Saturation 97.6 H (94-97) % Chloride 96 L (98-107) mmol/L Carbon Dioxide 37 H (22-30) mmol/L BUN 22 H (9-20) mg/dL Creatinine 0.61 L (0.66-1.25) mg/dL Glucose 144 H (74-99) mg/dL POC Glucose (mg/dL) (75-99) mg/dL Calcium 8.2 L (8.4-10.2) mg/dL 04/05/19 Range/Units 05:36 WBC (3.8-10.6) k/uL RBC (4.30-5.90) m/uL Hgb (13.0-17.5) gm/dL Hct (39.0-53.0) % ABG pCO2 (35-45) mmHg ABG HCO3 (21-25) mmol/L ABG Total CO2 (19-24) mmol/L ABG O2 Saturation (94-97) % Chloride (98-107) mmol/L Carbon Dioxide (22-30) mmol/L BUN (9-20) mg/dL Creatinine (0.66-1.25) mg/dL Glucose (74-99) mg/dL POC Glucose (mg/dL) 144 H (75-99) mg/dL Calcium (8.4-10.2) mg/dL Microbiology - Last 24 Hours (Table) 03/29/19 16:50 Blood Culture - Final Blood No Growth after 144 hours Assessment and Plan Plan: Assessment: #1. Acute hypoxic and hypercapnic respiratory failure secondary to acute exacerbation of COPD and bibasilar pneumonia related to Enterobacter cloacae #2. Severe hyponatremia, possible SIADH, could be related to psychiatric medications, improved, responded well to treatment #3. Acute mental status changes, acute metabolic encephalopathy secondary to hyponatremia #4. History of type 2 diabetes mellitus #5. History of schizophrenia #6. History of nicotine dependence syndrome #7. Possible right lower lobe aspiration pneumonia Plan: We'll proceed with spontaneous awakening trials and spontaneous breathing trials this morning with pressure support of 5 and CPAP of 5, today's chest x-ray was reviewed showing improvement in bibasilar aeration with residual small pleural effusions, continue with Zosyn for antibiotic coverage, labs show on trending leukocytosis, no fever, hemodynamically patient is stable. We'll consider additional dose of IV Lasix. Continue GI and DVT prophylaxis, same dose IV steroids and nebulized bronchodilators, will follow I performed a history & physical examination of the patient and discussed their management with my nurse practitioner, Iraida Major. I reviewed the nurse practitioner's note and agree with the documented findings and plan of care. Lung sounds are positive for a few scattered rhonchi. The findings and the impression was discussed with the patient. I attest to the documentation by the nurse practitioner. Time with Patient: Greater than 30
[2019-04-05] MEDS ORDERED: FUROSEMIDE 10 MG/ML 4 ML VIAL IV STA (08:44)
--- NOTE | 2019-04-05 08:45 | XR ---
EXAMINATION TYPE: XR chest 1V portable DATE OF EXAM: 04/05/2019 COMPARISON: 04/04/2019 HISTORY: Tube placement TECHNIQUE: Single frontal view of the chest is obtained. FINDINGS: Bilateral lower lobe consolidation small effusion appears reduced. Right-sided central makayla e and ET tube and NG tube stable. Interstitial pattern noted. No sizable pneumothorax. Heart size is normal. IMPRESSION: 1. Bilateral infiltrate and pleural effusion are stable. Correlate for mild venous congestion versus pneumonia.
[2019-04-05] MEDS: CHLORHEXIDINE GLUCONATE 15 ML CUP MUCOUS MEM SCH (08:58)
[2019-04-05] MEDS: PIPERACILLIN-TAZOBACTAM 3.375 GM in SODIUM CHLORIDE 0.9% 100 ML IVPB SCH ×2 (08:58→16:40)
[2019-04-05] MEDS: ENOXAPARIN 40 MG/0.4 ML SYRINGE SQ SCH (08:59)
[2019-04-05] MEDS: PANTOPRAZOLE 40 MG/10 ML VIAL IV SCH (08:59)
[2019-04-05 09:28] LABS: ABG Base Excess 12.8 mmol/L; ABG HCO3 37 mmol/L (21-25); ABG Oxygen Saturation 94.1 % (94-97); ABG PCO2 59 mmHg (35-45); ABG PH 7.41 (7.35-7.45); ABG PO2 71 mmHg (83-108); ABG TCO2 39 mmol/L (19-24); Allen Test Performed? Yes
--- NOTE | 2019-04-05 10:43 | P.PN ---
Subjective Principal diagnosis: Patient is seen in follow-up for hyponatremia. Sodium level 137 today. Extubated this morning. Remains off IV fluids. No active complaints at this time. Vital signs are stable. General: The patient appeared well nourished and normally developed. HEENT: Head exam is unremarkable. Neck is without jugular venous distension. LUNGS: Lungs are clear to auscultation and percussion. Breath sounds decreased. HEART: Rate and Rhythm are regular. First and second heart sounds normal. No murmurs, rubs or gallops. ABDOMEN: Abdominal exam reveals normal bowel sounds. Non-tender and non- distended. EXTREMITITES: No clubbing, cyanosis, or edema. Objective - Vital Signs Vital signs: Vital Signs Temp 99 F 04/05/19 00:00 Pulse 67 04/05/19 07:52 Resp 20 04/05/19 07:00 BP 113/71 04/05/19 07:00 Pulse Ox 97 04/05/19 07:00 Intake & Output 04/04/19 04/05/19 04/05/19 18:59 06:59 18:59 Intake Total 673.76 880.33 Output Total 1520 1010 Balance -846.24 -129.67 Weight 102 kg 103 kg Intake: IV 340 220 0.9 Normal Saline @ 10mls 90 120 /hr Piperacillin-Tazobactam 3 100 100 .375 gm In Sodium Chloride 0.9% 100 ml @ 25 mls/hr IVPB Q8HR [facility] Rx# :[id number] Sodium Chloride 0.9% 1, 150 000 ml @ 50 mls/hr IV . Q20H [facility] Rx#:[id number] Intake, IV Titration 84.76 246.33 Amount Propofol 1,000 mg In 84.76 246.33 Empty Bag 1 bag @ Titrate IV .Q0M [facility] Rx#: [id number] Tube Feeding 189 324 Other 60 90 Output: Urine 1520 1010 Other: Voiding Method Indwelling Catheter Indwelling Catheter # Bowel Movements 2 ABP, PAP, CO, CI - Last Documented Arterial Blood Pressure 133/72 - Labs CBC & Chem 7: 04/05/19 04:20 04/05/19 04:20 Labs: Abnormal Lab Results - Last 24 Hours (Table) 04/04/19 04/04/19 04/04/19 Range/Units 10:45 18:15 23:18 WBC (3.8-10.6) k/uL RBC (4.30-5.90) m/uL Hgb (13.0-17.5) gm/dL Hct (39.0-53.0) % ABG pCO2 63 H (35-45) mmHg ABG pO2 (83-108) mmHg ABG HCO3 36 H (21-25) mmol/L ABG Total CO2 38 H (19-24) mmol/L ABG O2 Saturation (94-97) % Chloride (98-107) mmol/L Carbon Dioxide (22-30) mmol/L BUN (9-20) mg/dL Creatinine (0.66-1.25) mg/dL Glucose (74-99) mg/dL POC Glucose (mg/dL) 113 H 153 H (75-99) mg/dL Calcium (8.4-10.2) mg/dL 04/05/19 04/05/19 04/05/19 Range/Units 04:20 04:20 04:37 WBC 14.8 H (3.8-10.6) k/uL RBC 4.03 L (4.30-5.90) m/uL Hgb 11.7 L (13.0-17.5) gm/dL Hct 37.0 L (39.0-53.0) % ABG pCO2 55 H (35-45) mmHg ABG pO2 (83-108) mmHg ABG HCO3 38 H (21-25) mmol/L ABG Total CO2 39 H (19-24) mmol/L ABG O2 Saturation 97.6 H (94-97) % Chloride 96 L (98-107) mmol/L Carbon Dioxide 37 H (22-30) mmol/L BUN 22 H (9-20) mg/dL Creatinine 0.61 L (0.66-1.25) mg/dL Glucose 144 H (74-99) mg/dL POC Glucose (mg/dL) (75-99) mg/dL Calcium 8.2 L (8.4-10.2) mg/dL 04/05/19 04/05/19 Range/Units 05:36 09:26 WBC (3.8-10.6) k/uL RBC (4.30-5.90) m/uL Hgb (13.0-17.5) gm/dL Hct (39.0-53.0) % ABG pCO2 59 H (35-45) mmHg ABG pO2 71 L (83-108) mmHg ABG HCO3 37 H (21-25) mmol/L ABG Total CO2 39 H (19-24) mmol/L ABG O2 Saturation (94-97) % Chloride (98-107) mmol/L Carbon Dioxide (22-30) mmol/L BUN (9-20) mg/dL Creatinine (0.66-1.25) mg/dL Glucose (74-99) mg/dL POC Glucose (mg/dL) 144 H (75-99) mg/dL Calcium (8.4-10.2) mg/dL Microbiology - Last 24 Hours (Table) 03/29/19 16:50 Blood Culture - Final Blood No Growth after 144 hours Assessment and Plan Plan: Assessment: 1. Severe hyponatremia status post 3% saline. Etiology is SSRI use and PNA. Improved. 2. Pneumonia maintained on antibiotics. 3. History of schizophrenia. 4. Mild volume overload status post IV Lasix yesterday and today. Plan: Encourage oral intake. 1500 mL fluid restriction. Repeat electrolytes in the morning.
[2019-04-05 11:51] LABS: Glucose,Whole Blood 119 mg/dL (75-99)
--- NOTE | 2019-04-05 14:11 | P.PN ---
Subjective Progress Note Date: 04/05/19 Principal diagnosis: 63-year-old male with known history of hypertension schizophrenia came in completely confused, altered mental status. patient is unable to provide any history to me patient as he is excessively drowsy but able to wake up with verbal stimuli. But unable to provide any history. Patient is found to be severely hyponatremic also found to have aspiration pneumonia. Patient does have significant leukocytosis. Patient in the past was treated for hypovolemic as was hypovolemic hyponatremia. Patient serum sodium is extremely low at 113 on 3% saline to 117. Nephrology is following the patient I did order urine osmolality, serum osmolality urine random sodium urine didn't random creatinine urinary uric acid although these labs will not be reliable because as patient is already on saline now. 03/31/2019 Patient is currently in the ICU being closely monitored with a health and safety specialist at the bedside. Patient continues to be confused and quite lethargic. Per sitter, patient occasionally tries to get up out of the bed but is not coherent as to what he is doing. Patient continues to fall asleep when talking with the patient but is arousable to voice. Current sodium is 121. Nephrology is following. White blood count has also improved slightly and is trending down and is currently 20.1. Today's chest x-ray shows possible underlying mild pulmonary vascular congestion with the right hilar masslike prominence and persistent right basilar obesity. 04/01/2019 Patient currently remains in the ICU and is being closely monitored and patient was intubated last night as he continued to deteriorate and developed hypoxic and hypercapnic respiratory failure. Patient was very lethargic and unarousable and patient was intubated with Dr. Miranda. Currently patient is sedated and seems to be much more comfortable. Chest x-ray today shows some improvement of the right lower lobe pneumonia. Patient's sodium is currently 126 and 3% normal saline has been discontinued. Nephrology is following. Sputum cultures thus far showing gram-negative bacilli and patient is currently on Unasyn and will continue at this time. 04/02/2019 Patient remains intubated patient remains hypercapnic sick and hypercapnic because of which the activation was not attempted today. Patient remains on pressor support patient is on minimal vent settings at this time patient on 50 mL of normal saline as it was believed that patient has uremic hyponatremia improved with the 3% saline and now patient has some metabolic alkalosis partly because of the respiratory compensation and the there may be a competent of the contraction alkalosis. His serum sodium is 130on admission serum sodium is 114. 04/03/2019 Patient's serum sodium did improve patient remains intubated patient will be on sedation vacation today no plans on weaning trial today as per pulmonology. 04/04/2019 Patient is sitting up and appears to be in no acute distress. Patient is currently being closely monitored in the ICU and will continue at this time. Patient remains ventilated and undergoing trial breathing and not tolerating well at this time. Patient will continue on the vent at this time. Pulmonary is following closely. Sputum culture results have resulted with enterobacter cloacae and IV antibiotics and been adjusted to Zosyn and will continue at this time. Patient remains on tube feedings and tolerating well thus far. Will continue to monitor closely. Serum sodium is 135 today. Willl discontinue IV fluids. 04/05/2019 Patient is sitting up and currently remains in the ICU being closely monitored. No acute overnight issues. Patient is awake and was recently just extubated with Dr. Syed and tolerating well thus far. Patient is currently on 5 L of oxygen via nasal cannula with oxygen saturations in the low 90s. Patient is responding appropriately to commands. Sitter is at the bedside for safety as the patient attempts to get out of bed at times. Awaiting to have a swallow eval done with speech possibly today or tomorrow as he is currently nothing by mouth. Repeat chest x-ray today shows stable findings and continues with some possible mild venous congestion. Patient will be given a dose of IV Lasix again. Patient is currently off IV fluids and will continue at this time. Objective - Vital Signs Vital signs: Vital Signs Temp 99 F 04/05/19 00:00 Pulse 67 04/05/19 07:52 Resp 20 04/05/19 07:00 BP 113/71 04/05/19 07:00 Pulse Ox 97 04/05/19 07:00 Intake & Output 04/04/19 04/05/19 04/05/19 18:59 06:59 18:59 Intake Total 673.76 880.33 Output Total 1520 1010 Balance -846.24 -129.67 Weight 102 kg 103 kg Intake: IV 340 220 0.9 Normal Saline @ 10mls 90 120 /hr Piperacillin-Tazobactam 3 100 100 .375 gm In Sodium Chloride 0.9% 100 ml @ 25 mls/hr IVPB Q8HR [facility] Rx# :[id number] Sodium Chloride 0.9% 1, 150 000 ml @ 50 mls/hr IV . Q20H [facility] Rx#:[id number] Intake, IV Titration 84.76 246.33 Amount Propofol 1,000 mg In 84.76 246.33 Empty Bag 1 bag @ Titrate IV .Q0M [facility] Rx#: [id number] Tube Feeding 189 324 Other 60 90 Output: Urine 1520 1010 Other: Voiding Method Indwelling Catheter Indwelling Catheter # Bowel Movements 2 ABP, PAP, CO, CI - Last Documented Arterial Blood Pressure 133/72 - Exam GENERAL: 63-year-old male, awake and alert and responding to simple commands recently extubated today HEENT: Pupils are round and equally reacting to light. EOMI. No scleral icterus. No conjunctival pallor. Normocephalic, atraumatic. No pharyngeal erythema. No thyromegaly. CARDIOVASCULAR: S1 and S2 present. No murmurs, rubs, or gallops. PULMONARY: Lung sounds diminished at the bases with a few scattered rhonchi noted ABDOMEN: Soft, obese, nontender, nondistended, normoactive bowel sounds. No palpable organomegaly. MUSCULOSKELETAL: No joint swelling or deformity. EXTREMITIES: No cyanosis, clubbing, or pedal edema. NEUROLOGICAL: Alert and awake, cooperative SKIN: No rashes. Left index finger noted with scabs status post recent abscess and laceration, old dressing of left index finger was removed and wound was cleansed with no signs of redness, swelling, or drainage noted. - Labs CBC & Chem 7: 04/05/19 04:20 04/05/19 04:20 Labs: Abnormal Lab Results - Last 24 Hours (Table) 04/04/19 04/04/19 04/04/19 Range/Units 10:45 18:15 23:18 WBC (3.8-10.6) k/uL RBC (4.30-5.90) m/uL Hgb (13.0-17.5) gm/dL Hct (39.0-53.0) % ABG pCO2 63 H (35-45) mmHg ABG pO2 (83-108) mmHg ABG HCO3 36 H (21-25) mmol/L ABG Total CO2 38 H (19-24) mmol/L ABG O2 Saturation (94-97) % Chloride (98-107) mmol/L Carbon Dioxide (22-30) mmol/L BUN (9-20) mg/dL Creatinine (0.66-1.25) mg/dL Glucose (74-99) mg/dL POC Glucose (mg/dL) 113 H 153 H (75-99) mg/dL Calcium (8.4-10.2) mg/dL 04/05/19 04/05/19 04/05/19 Range/Units 04:20 04:20 04:37 WBC 14.8 H (3.8-10.6) k/uL RBC 4.03 L (4.30-5.90) m/uL Hgb 11.7 L (13.0-17.5) gm/dL Hct 37.0 L (39.0-53.0) % ABG pCO2 55 H (35-45) mmHg ABG pO2 (83-108) mmHg ABG HCO3 38 H (21-25) mmol/L ABG Total CO2 39 H (19-24) mmol/L ABG O2 Saturation 97.6 H (94-97) % Chloride 96 L (98-107) mmol/L Carbon Dioxide 37 H (22-30) mmol/L BUN 22 H (9-20) mg/dL Creatinine 0.61 L (0.66-1.25) mg/dL Glucose 144 H (74-99) mg/dL POC Glucose (mg/dL) (75-99) mg/dL Calcium 8.2 L (8.4-10.2) mg/dL 04/05/19 04/05/19 Range/Units 05:36 09:26 WBC (3.8-10.6) k/uL RBC (4.30-5.90) m/uL Hgb (13.0-17.5) gm/dL Hct (39.0-53.0) % ABG pCO2 59 H (35-45) mmHg ABG pO2 71 L (83-108) mmHg ABG HCO3 37 H (21-25) mmol/L ABG Total CO2 39 H (19-24) mmol/L ABG O2 Saturation (94-97) % Chloride (98-107) mmol/L Carbon Dioxide (22-30) mmol/L BUN (9-20) mg/dL Creatinine (0.66-1.25) mg/dL Glucose (74-99) mg/dL POC Glucose (mg/dL) 144 H (75-99) mg/dL Calcium (8.4-10.2) mg/dL Microbiology - Last 24 Hours (Table) 03/29/19 16:50 Blood Culture - Final Blood No Growth after 144 hours Assessment and Plan Assessment: -Severe hyponatremia: Multifactorial there may be a component of psychogenic polydipsia, SIADH from medications as well as hypovolemia. 3% saline has been discontinued there is a component of hypervolemia because of which patient was started on IV fluids as mentioned above. -Acute hypoxic and hypercapnic respiratory failure syndrome with COPD exacerbation and may be a right lower lobe pneumonia and aspiration pneumonia because of which the patient is on Zosyn at this time. -Mediastinal lymphadenopathy which need to be followed as an outpatient once he is stable with repeat CAT scan. -Metabolic encephalopathy secondary to hyponatremia -COPD with acute exacerbation patient systemic steroids -Type 2 diabetes mellitus -Schizophrenia -Nicotine abuse for above-mentioned chronic medical problems patient will be resumed on appropriate home medications whenever he can tolerate oral medications. Speech therapy was consulted because of his mental status to assess if he can actually swallow Plan: Continue current medications, management, and symptomatic treatment. Multiple medical consultations following. Patient will remain in the ICU for close monitoring at this time. Patient has been extubated and currently being maintained on 5 L of oxygen via nasal cannula. Awaiting a swallow eval to resume diet as patient was on tube feedings. IV fluids are discontinued. Repeat sodium today is 137 Will repeat a.m. labs. Further recommendations to follow.
[2019-04-05 18:11] LABS: Glucose,Whole Blood 94 mg/dL (75-99)
[2019-04-05 23:55] LABS: Glucose,Whole Blood 104 mg/dL (75-99)
[2019-04-06] MEDS: INSULIN ASPART (NovoLOG) 100 UNIT/ML VIAL SQ SCH ×4 (00:21→18:09)
[2019-04-06] MEDS: methylPREDNISolone SOD SUCCI 40 MG/ML 1 ML VIAL IV SCH ×3 (00:25→15:47)
[2019-04-06] MEDS: PIPERACILLIN-TAZOBACTAM 3.375 GM in SODIUM CHLORIDE 0.9% 100 ML IVPB SCH ×3 (00:25→15:45)
[2019-04-06] MEDS: IPRATROPIUM-ALBUTEROL 3 ML NEB INHALATION SCH ×7 (00:30→23:59)
[2019-04-06] MEDS: LABETALOL 5 MG/ML VIAL MDV IVP PRN ×3 (00:32→05:24)
[2019-04-06 04:30] LABS: HCT 39.7 % (39.0-53.0); HGB 12.2 gm/dL (13.0-17.5); MCH 28.5 pg (25.0-35.0); MCHC 30.9 g/dL (31.0-37.0); MCV 92.3 fL (80.0-100.0); Mean Platelet Volume 6.9; Platelet Count 239 k/uL (150-450); RDW 13.2 % (11.5-15.5); WBC 18.8 k/uL (3.8-10.6)
[2019-04-06 05:45] LABS: Glucose,Whole Blood 115 mg/dL (75-99)
[2019-04-06 06:33] LABS: African American GFR (CKD) >90 (>60 ml/min/1.73 sqM); Anion Gap 5 mmol/L; Blood Urea Nitrogen 27 mg/dL (9-20); Calcium 8.5 mg/dL (8.4-10.2); Carbon Dioxide 37 mmol/L (22-30); Chloride 99 mmol/L (98-107); Glucose 113 mg/dL (74-99); Non-African American GFR(CKD) >90 (>60 ml/min/1.73 sqM); Potassium 4.4 mmol/L (3.5-5.1); Sodium 141 mmol/L (137-145)
[2019-04-06] MEDS ORDERED: LABETALOL 5 MG/ML VIAL MDV IVP STA ×3 (06:53→07:29)
[2019-04-06] MEDS: BUDESONIDE 1 MG/2 ML NEBU INHALATION SCH ×2 (07:16→19:23)
[2019-04-06] MEDS: FORMOTEROL FUMARATE 20 MCG/2 ML NEBU INHALATION SCH ×2 (07:17→19:23)
--- NOTE | 2019-04-06 07:43 | XR ---
EXAMINATION TYPE: XR chest 1V portable DATE OF EXAM: 04/06/2019 CLINICAL HISTORY: Difficulty breathing progress study. TECHNIQUE: Single AP portable semiupright view of the chest is obtained. COMPARISON: Chest x-ray from one day earlier and older studies. FINDINGS: Stable right internal jugular central venous catheter. Interval extubation with removal of endotracheal and orogastric tubes. Stable mild cardiomegaly with mild central vascular congestion. B ackground chronic parenchymal change with patchy bibasilar opacities. Osseous structures are intact. IMPRESSION: Interval extubation. Persistent cardiomegaly with mild central vascular congestion and as sociated patchy bibasilar atelectasis and/or infiltrates are all redemonstrated.
[2019-04-06] MEDS: CARVEDILOL 6.25 MG TAB PO SCH ×2 (07:58→15:27)
[2019-04-06] MEDS: PANTOPRAZOLE 40 MG/10 ML VIAL IV SCH (08:28)
[2019-04-06] MEDS: ENOXAPARIN 40 MG/0.4 ML SYRINGE SQ SCH (08:28)
[2019-04-06] MEDS: CLEVIDIPINE BUTYRATE 25 MG in EMPTY BAG 1 BAG IV SCH ×3 (09:09→17:35)
[2019-04-06] MEDS ORDERED: FUROSEMIDE 10 MG/ML 4 ML VIAL IV STA (09:28)
--- NOTE | 2019-04-06 09:28 | P.PN ---
Subjective Progress Note Date: 04/06/19 Principal diagnosis: Hyponatremia and metabolic encephalopathy, acute hypercapnic and hypoxemic respiratory failure This is a 63-year-old white male, poor historian, known history of schizophrenia, hypertension, patient is on multiple psychiatric medications, presented to the ER with mostly mental status change and worsening confusion. Patient was found to have extremely low sodium of 111, and his chest x-ray is suggestive of right lower lobe aspiration pneumonia. Patient was noted to have leukocytosis, he was noted to be hypovolemic clinically, and patient was initially started on 3% saline his repeat serum sodium today is 117. Nephrology has the patient on consultation, urine and serum osmolalities are pending. Considering the patient was admitted to the ICU and he was placed on 3% hypertonic saline, I was asked to see him on consultation. However upon my eval uation of the patient, he seems to be confused, in no form of respiratory distress, and no further information could be obtained from the patient himself. No family members at bedside. Reevaluated today on 03/31/2019, patient remains in the ICU, his pulmonary status is rather marginal. Patient is not doing well with incentive spirometry, and he does not follow instructions as far as deep coughing and deep breathing and clearing secretions. He does sound wet, and crackly, but the patient does not cough to clear his secretions. Chest x-ray showed mild pulmonary vascular congestion, and right lower lobe atelectasis, possibly right sided pneumonia. Sodium today is up to 121. His renal profile is normal BUN is 10 and creatinine 0.57. WBC count is 20.1. Remains on antibiotics for presumptive aspiration. Patient was seen by nephrology yesterday, and he was felt to have hypovolemic hyponatremia. Patient continues to have a rhic systems safety engineer at bedside. And he continues to be confused, and lethargic. At times he tries to get out of bed, and he is not coherent. Reevaluated today on 04/01/2019, patient deteriorated yesterday significantly. Around 5:00 yesterday, patient developed hypoxic and hypercapnic respiratory failure, I happened to be in the ICU at the time, patient was on nonrebreather mask, and when I assessed him, he was extremely difficult to arouse. Could not be aroused, and he had significant amount of wheezing. And he was using his accessory muscles to breathe. Hence intubated the patient immediately, placed on mechanical ventilation, and placed on propofol overnight. He was placed on bronchodilators, steroids. And reevaluated today. Chest x-ray is showing improvement in his right lower lobe pneumonia and atelectasis. His ventilator settings are assist control rate of 20, tidal volume of 500, FiO2 is 50% and PEEP of 5. Propofol is at 50 mcg/kg/m. Not requiring any pressors. ABG this morning showed a pO2 of 101 pCO2 of 43 pH of 7.47. Sodium is up to 127 today. WBC count is 17.3 hemoglobin is 12.5. Renal functioning is normal. Blood cultures are negative so far. Sputum cultures are pending. Patient remains on Unasyn, bronchodilators, Lovenox, methylprednisolone for his COPD exacerbation, he is also on GI and DVT prophylaxis. Patient is on Lovenox. Reevaluated today on 04/02/2019, patient remains intubated, mechanically ventilated.patient is on the same ventilator settings as yesterday, and FiO2 is 50%, PEEP is 5, tidal volume is 500 assist control rate of 20.ABG today is marginal pO2 is 74 pCO2 of 55 pH of 7.42. WBC count is 17.5 hemoglobin is 12.3 sodium is better up to 130.renal profile is normal bicarb is 35.chest x-ray co ntinues to show cardiomegaly and bibasilar airspace disease with atelectasis and possible underlying pneumonia bilaterally. Small right-sided pleural effusion is noted Reevaluated today on 04/03/2019, patient remains in the ICU, intubated and mechanically ventilated. His ventilator settings are tidal volume is 500 rate is 20 FiO2 40% and PEEP is 5. ABG showed a pO2 of 111 pCO2 of 57 pH of 7.43 and this was on 50% FiO2. CBC showed WBC count of 16.8 hemoglobin is 12.6 electrolytes are normal renal profile is normal. Chest x-ray showed worsening bibasilar pneumonia and small pleural effusions. On 04/04/2019 patient seen in follow-up in intensive care unit. He is intubated, sedated on mechanical ventilator, current vent settings are as control mode of ventilation with a rate of 20, tidal M5 100, FiO2 40% and PEEP of 5, this morning blood gases show pO2 of 80, pCO2 53, and pH is 7.44. Maintenance IV fluids include 0.9 and a rate of 10, to prevent at a rate of 50 mics per kilo per minute. Antibiotic coverage in the form of Unasyn however sputum culture showed Enterobacter cloacae which was resistant to Unasyn, and antibiotic coverage was switched to Zosyn, patient is currently sedated, opens his eyes and follow simple commands, we'll proceed with spontaneous breathing trials with CPAP of 5 and pressure support of 5. This morning's blood work was reviewed, showing white blood cell count of 18.4, hemoglobin of 12.3, sodium was 135, potassium is 4.7, chloride is 97, CO2 34, BUN is 20 creatinine 0.57. Lung sounds are diminished, with a few scattered rhonchi, apparently patient still has significant amount of orotracheal secretions. On 04/05/2019 patient seen in follow-up in the intensive care unit, he is currently awake, he sedation is on hold, he is following simple commands, appears to be calm and not in any acute distress, he still intubated on mechanical ventilator, with the assist control mode of ventilation with a rate of 20, tidal vitamin 500, FiO2 of 40% and PEEP of 5 and this morning's blood gases showed pO2 of 93 pCO2 55 and pH of 7.44. Maintenance IV fluids at rate of 100, tube feedings of vital high-protein rate of 27 with a goal of 27. Today's chest x-ray has been reviewed showing improvement bibasilar aeration and improvement in the appearance of the right lower lobe infiltrate, residual small pleural effusions. We'll proceed with the DIS and a spontaneous breathing trials, yesterday patient was given a CPAP trial however patient failed, and post spontaneous breathing trial blood gases showed increase in his pCO2 of 10. he remains on Zosyn for antibiotic coverage, and culture showed Enterobacter cloacae, with culture showed no growth. His white count is trending down, down to 14.8, hemoglobin is 11.7, sodium is 137, potassium is 4.6, chloride is 96, CO2 is 37, B1 is 22, creatinine 0.61. She remains on IV Solu-Medrol, breathing treatments, and yesterday we gave him an extra dose of IV Lasix, he is in -975 ML negative fluid balance On 04/06/2019 patient seen in follow-up in the intensive care unit, he was successfully extubated yesterday on 04/05/2019, today he is awake and alert, appropriately, patient is on 5 L of oxygen per nasal cannula, and his pulse ox is 93-96%, he is afebrile. His cough is weak. Does not sound overly congested, lung sounds are diminished, no fever or chills, he continues on Zosyn for eviden ce of enterobacter cloacae in the sputum culture. Denies any worsening dyspnea, breathing seems to be comfortable, he is tolerating ice chips, he is awaiting bedside swallow evaluation by the speech therapist, however patient has been hypertensive stolid blood pressure in the 190s and diastolic in the 100s, and he has received multiple doses of labetalol. He has been restarted on his Coreg this morning, and if his blood pressure remains elevated we will start him on cleviprex. Today's chest x-ray has been reviewed showing interval extubation, and persistent cardiomegaly with mild central vascular congestion and associated patchy bibasilar atelectasis. Objective - Vital Signs Vital signs: Vital Signs Temp 97.8 F 04/06/19 08:00 Pulse 70 04/06/19 09:00 Resp 18 04/06/19 09:00 BP 179/105 04/06/19 09:00 Pulse Ox 93 L 04/06/19 09:00 Intake & Output 04/05/19 04/06/19 04/06/19 18:59 06:59 18:59 Intake Total 364 530 130.700 Output Total 901 1190 335 Balance -537 -660 -204.300 Weight 98.5 kg Intake: IV 310 130 130 0.9 Normal Saline @ 10mls 110 130 30 /hr Piperacillin-Tazobactam 3 200 100 .375 gm In Sodium Chloride 0.9% 100 ml @ 25 mls/hr IVPB Q8HR [facility] Rx# :[id number] Intake, IV Titration 0.700 Amount Clevidipine Butyrate 25 0.700 mg In Empty Bag 1 bag @ 1 MG/HR 2 mls/hr IV .Q24H [facility] Rx#:[id number] Oral 400 Tube Feeding 54 Output: Urine 900 1190 335 Stool 1 Other: Voiding Method Indwelling Catheter Indwelling Catheter # Bowel Movements 2 ABP, PAP, CO, CI - Last Documented Arterial Blood Pressure 191/88 - Exam GENERAL EXAM: Alert, intubated, 63-year-old white male, comfortable, on 5 L of oxygen, with a pulse ox of 93-96%, comfortable in no apparent distress. HEAD: Normocephalic/atraumatic. EYES: Normal reaction of pupils, equal size. Conjunctiva pink, sclera white. NOSE: Clear with pink turbinates. THROAT: No erythema or exudates. NECK: No masses, no JVD, no thyroid enlargement, no adenopathy. CHEST: No chest wall deformity. Symmetrical expansion. LUNGS: Equal air entry with no scattered rhonchi, no wheeze, rhonchi or dullness. CVS: Regular rate and rhythm, normal S1 and S2, no gallops, no murmurs, no rubs ABDOMEN: Soft, nontender. No hepatosplenomegaly, normal bowel sounds, no guarding or rigidity. EXTREMITIES: No clubbing, no edema, no cyanosis, 2+ pulses and upper and lower extremities. MUSCULOSKELETAL: Muscle strength and tone normal. SPINE: No scoliosis or deformity SKIN: No rashes CENTRAL NERVOUS SYSTEM: Alert and oriented -1. No focal deficits, tone is normal in all 4 extremities. - Labs CBC & Chem 7: 04/06/19 04:15 04/06/19 05:31 Labs: Abnormal Lab Results - Last 24 Hours (Table) 04/05/19 04/05/19 04/05/19 Range/Units 09:26 11:40 23:44 WBC (3.8-10.6) k/uL Hgb (13.0-17.5) gm/dL MCHC (31.0-37.0) g/dL ABG pCO2 59 H (35-45) mmHg ABG pO2 71 L (83-108) mmHg ABG HCO3 37 H (21-25) mmol/L ABG Total CO2 39 H (19-24) mmol/L Carbon Dioxide (22-30) mmol/L BUN (9-20) mg/dL Creatinine (0.66-1.25) mg/dL Glucose (74-99) mg/dL POC Glucose (mg/dL) 119 H 104 H (75-99) mg/dL 04/06/19 04/06/19 04/06/19 Range/Units 04:15 05:31 05:32 WBC 18.8 H (3.8-10.6) k/uL Hgb 12.2 L (13.0-17.5) gm/dL MCHC 30.9 L (31.0-37.0) g/dL ABG pCO2 (35-45) mmHg ABG pO2 (83-108) mmHg ABG HCO3 (21-25) mmol/L ABG Total CO2 (19-24) mmol/L Carbon Dioxide 37 H (22-30) mmol/L BUN 27 H (9-20) mg/dL Creatinine 0.60 L (0.66-1.25) mg/dL Glucose 113 H (74-99) mg/dL POC Glucose (mg/dL) 115 H (75-99) mg/dL Assessment and Plan Plan: Assessment: #1. Acute hypoxic and hypercapnic respiratory failure secondary to acute exacerbation of COPD and bibasilar pneumonia related to Enterobacter cloacae #2. Severe hyponatremia, possible SIADH, could be related to psychiatric medications, improved, responded well to treatment #3. Acute mental status changes, acute metabolic encephalopathy secondary to hyponatremia #4. History of type 2 diabetes mellitus #5. History of schizophrenia #6. History of nicotine dependence syndrome #7. Possible right lower lobe aspiration pneumonia Plan: Patient is tolerating extubation quite well, is currently on 5 L of oxygen, breathing seems to be comfortable, does have a weak cough, encourage to deep breathing and coughing, will continues with the same antibiotics, today's chest x-ray has been reviewed showing persistent cardiomegaly, with mild central vascular congestion and patchy bibasilar atelectasis. Patient is covered with Zosyn, been afebrile, however patient has been hypertensive, he has been restarted on his home dose Coreg, and has received multiple doses of labetalol. He did not respond to Coreg and we will start Cleviprex drip. Still has some expiratory wheezing, we will begin decrease the dose of IV steroids down to 40 mg every 8 hours, he remains stable we will transition to oral prednisone starting tomorrow. We'll give the patient additional dose of IV Lasix today. Repeat chest x-ray in the morning I performed a history & physical examination of the patient and discussed their management with my nurse practitioner, Iraida Major. I reviewed the nurse practitioner's note and agree with the documented findings and plan of care. Lung sounds are positive for a few scattered rhonchi. The findings and the impression was discussed with the patient. I attest to the documentation by the nurse practitioner. Time with Patient: Less than 30
[2019-04-06 12:13] LABS: Glucose,Whole Blood 104 mg/dL (75-99)
--- NOTE | 2019-04-06 14:45 | P.PN ---
Subjective Progress Note Date: 04/06/19 Principal diagnosis: 63-year-old male with known history of hypertension schizophrenia came in completely confused, altered mental status. patient is unable to provide any history to me patient as he is excessively drowsy but able to wake up with verbal stimuli. But unable to provide any history. Patient is found to be severely hyponatremic also found to have aspiration pneumonia. Patient does have significant leukocytosis. Patient in the past was treated for hypovolemic as was hypovolemic hyponatremia. Patient serum sodium is extremely low at 113 on 3% saline to 117. Nephrology is following the patient I did order urine osmolality, serum osmolality urine random sodium urine didn't random creatinine urinary uric acid although these labs will not be reliable because as patient is already on saline now. 03/31/2019 Patient is currently in the ICU being closely monitored with a safety consultant at the bedside. Patient continues to be confused and quite lethargic. Per sitter, patient occasionally tries to get up out of the bed but is not coherent as to what he is doing. Patient continues to fall asleep when talking with the patient but is arousable to voice. Current sodium is 121. Nephrology is following. White blood count has also improved slightly and is trending down and is currently 20.1. Today's chest x-ray shows possible underlying mild pulmonary vascular congestion with the right hilar masslike prominence and persistent right basilar obesity. 04/01/2019 Patient currently remains in the ICU and is being closely monitored and patient was intubated last night as he continued to deteriorate and developed hypoxic and hypercapnic respiratory failure. Patient was very lethargic and unarousable and patient was intubated with Dr. Miranda. Currently patient is sedated and seems to be much more comfortable. Chest x-ray today shows some improvement of the right lower lobe pneumonia. Patient's sodium is currently 126 and 3% normal saline has been discontinued. Nephrology is following. Sputum cultures thus far showing gram-negative bacilli and patient is currently on Unasyn and will continue at this time. 04/02/2019 Patient remains intubated patient remains hypercapnic sick and hypercapnic because of which the activation was not attempted today. Patient remains on pressor support patient is on minimal vent settings at this time patient on 50 mL of normal saline as it was believed that patient has uremic hyponatremia improved with the 3% saline and now patient has some metabolic alkalosis partly because of the respiratory compensation and the there may be a competent of the contraction alkalosis. His serum sodium is 130on admission serum sodium is 114. 04/03/2019 Patient's serum sodium did improve patient remains intubated patient will be on sedation vacation today no plans on weaning trial today as per pulmonology. 04/04/2019 Patient is sitting up and appears to be in no acute distress. Patient is currently being closely monitored in the ICU and will continue at this time. Patient remains ventilated and undergoing trial breathing and not tolerating well at this time. Patient will continue on the vent at this time. Pulmonary is following closely. Sputum culture results have resulted with enterobacter cloacae and IV antibiotics and been adjusted to Zosyn and will continue at this time. Patient remains on tube feedings and tolerating well thus far. Will continue to monitor closely. Serum sodium is 135 today. Willl discontinue IV fluids. 04/05/2019 Patient is sitting up and currently remains in the ICU being closely monitored. No acute overnight issues. Patient is awake and was recently just extubated with Dr. Syed and tolerating well thus far. Patient is currently on 5 L of oxygen via nasal cannula with oxygen saturations in the low 90s. Patient is responding appropriately to commands. Sitter is at the bedside for safety as the patient attempts to get out of bed at times. Awaiting to have a swallow eval done with speech possibly today or tomorrow as he is currently nothing by mouth. Repeat chest x-ray today shows stable findings and continues with some possible mild venous congestion. Patient will be given a dose of IV Lasix again. Patient is currently off IV fluids and will continue at this time. 04/06/2019 Patient is sitting up in currently remains in the ICU being closely monitored. Patient is currently requiring high flow oxygen via nasal cannula at 15 L. Pulmonary is following closely. Patient is also currently on Cleviprex for blood pressure control if he was having elevated blood pressures throughout the night and this morning. Patient is able to respond appropriately to simple commands but continues to not talk much. Patient is hard of hearing. Patient underwent a swallow eval and failed and will continue nothing by mouth with just ice chips at this time. Repeat chest x-ray shows no real improvement. Patient will be started on steroids and was given another dose of IV Lasix. Objective - Vital Signs Vital signs: Vital Signs Temp 96.7 F L 04/06/19 12:00 Pulse 81 04/06/19 13:40 Resp 24 04/06/19 13:00 BP 113/67 04/06/19 13:00 Pulse Ox 99 04/06/19 13:00 Intake & Output 04/05/19 04/06/19 04/06/19 18:59 06:59 18:59 Intake Total 364 530 219.600 Output Total 901 1190 1915 Balance -537 -660 -1695.400 Weight 98.5 kg Intake: IV 310 130 170 0.9 Normal Saline @ 10mls 110 130 70 /hr Piperacillin-Tazobactam 3 200 100 .375 gm In Sodium Chloride 0.9% 100 ml @ 25 mls/hr IVPB Q8HR [facility] Rx# :[id number] Intake, IV Titration 49.600 Amount Clevidipine Butyrate 25 49.600 mg In Empty Bag 1 bag @ 1 MG/HR 2 mls/hr IV .Q24H [facility] Rx#:[id number] Oral 400 Tube Feeding 54 Output: Urine 900 1190 1915 Stool 1 Other: Voiding Method Indwelling Catheter Indwelling Catheter Indwelling Catheter # Bowel Movements 2 ABP, PAP, CO, CI - Last Documented Arterial Blood Pressure 133/67 - Exam GENERAL: 63-year-old male, awake and alert and responding to simple commands recently extubated yesterday currently on high flow via nasal cannula at 15 L HEENT: Pupils are round and equally reacting to light. EOMI. No scleral icterus. No conjunctival pallor. Normocephalic, atraumatic. No pharyngeal erythema. No thyromegaly. CARDIOVASCULAR: S1 and S2 present. No murmurs, rubs, or gallops. PULMONARY: Lung sounds diminished at the bases with a few scattered rhonchi noted ABDOMEN: Soft, obese, nontender, nondistended, normoactive bowel sounds. No palpable organomegaly. MUSCULOSKELETAL: No joint swelling or deformity. EXTREMITIES: No cyanosis, clubbing, or pedal edema. NEUROLOGICAL: Alert and awake, cooperative SKIN: No rashes. Left index finger noted with scabs status post recent abscess and laceration, old dressing of left index finger was removed and wound was cleansed with no signs of redness, swelling, or drainage noted. - Labs CBC & Chem 7: 04/06/19 04:15 04/06/19 05:31 Labs: Abnormal Lab Results - Last 24 Hours (Table) 04/05/19 04/06/19 04/06/19 Range/Units 23:44 04:15 05:31 WBC 18.8 H (3.8-10.6) k/uL Hgb 12.2 L (13.0-17.5) gm/dL MCHC 30.9 L (31.0-37.0) g/dL Carbon Dioxide 37 H (22-30) mmol/L BUN 27 H (9-20) mg/dL Creatinine 0.60 L (0.66-1.25) mg/dL Glucose 113 H (74-99) mg/dL POC Glucose (mg/dL) 104 H (75-99) mg/dL 04/06/19 04/06/19 Range/Units 05:32 12:01 WBC (3.8-10.6) k/uL Hgb (13.0-17.5) gm/dL MCHC (31.0-37.0) g/dL Carbon Dioxide (22-30) mmol/L BUN (9-20) mg/dL Creatinine (0.66-1.25) mg/dL Glucose (74-99) mg/dL POC Glucose (mg/dL) 115 H 104 H (75-99) mg/dL Assessment and Plan Assessment: -Severe hyponatremia: Multifactorial there may be a component of psychogenic polydipsia, SIADH from medications as well as hypovolemia. 3% saline has been discontinued there is a component of hypervolemia because of which patient was started on IV fluids as mentioned above. -Acute hypoxic and hypercapnic respiratory failure syndrome with COPD exacerbation and may be a right lower lobe pneumonia and aspiration pneumonia because of which the patient is on Zosyn at this time. -Mediastinal lymphadenopathy which need to be followed as an outpatient once he is stable with repeat CAT scan. -Metabolic encephalopathy secondary to hyponatremia -COPD with acute exacerbation patient systemic steroids -Type 2 diabetes mellitus -Schizophrenia -Nicotine abuse for above-mentioned chronic medical problems patient will be resumed on appropriate home medications whenever he can tolerate oral medications. Speech therapy was consulted because of his mental status to assess if he can actually swallow Plan: Continue current medications, management, and symptomatic treatment. Multiple medical consultations following. Patient will remain in the ICU for close monitoring at this time. Patient was recently extubated yesterday and currently being maintained on high flow oxygen at 15 L via nasal cannula. Patient was placed on Cleviprex drip for blood pressure control as he was hypertensive. Patient underwent swallow eval and failed and as needed continue nothing by mouth with ice chips only. IV fluids are discontinued. Repeat sodium today is 141. Will repeat a.m. labs. Further recommendations to follow.
[2019-04-06 18:17] LABS: Glucose,Whole Blood 93 mg/dL (75-99)
[2019-04-07 00:02] LABS: Glucose,Whole Blood 88 mg/dL (75-99)
[2019-04-07] MEDS: INSULIN ASPART (NovoLOG) 100 UNIT/ML VIAL SQ SCH ×5 (00:26→23:40)
[2019-04-07] MEDS: PIPERACILLIN-TAZOBACTAM 3.375 GM in SODIUM CHLORIDE 0.9% 100 ML IVPB SCH ×4 (00:58→23:15)
[2019-04-07] MEDS: methylPREDNISolone SOD SUCCI 40 MG/ML 1 ML VIAL IV SCH ×3 (00:59→19:45)
[2019-04-07] MEDS: CLEVIDIPINE BUTYRATE 25 MG in EMPTY BAG 1 BAG IV SCH ×3 (01:06→19:00)
[2019-04-07] MEDS: IPRATROPIUM-ALBUTEROL 3 ML NEB INHALATION SCH ×6 (03:44→23:40)
[2019-04-07 05:51] LABS: Glucose,Whole Blood 111 mg/dL (75-99)
[2019-04-07 06:18] LABS: HCT 42.9 % (39.0-53.0); HGB 13.5 gm/dL (13.0-17.5); MCH 28.8 pg (25.0-35.0); MCHC 31.4 g/dL (31.0-37.0); MCV 91.7 fL (80.0-100.0); Mean Platelet Volume 6.8; Platelet Count 269 k/uL (150-450); RBC 4.68 m/uL (4.30-5.90); RDW 13.3 % (11.5-15.5); WBC 18.8 k/uL (3.8-10.6)
[2019-04-07 06:39] LABS: African American GFR (CKD) >90 (>60 ml/min/1.73 sqM); Anion Gap 7 mmol/L; Blood Urea Nitrogen 27 mg/dL (9-20); Calcium 8.6 mg/dL (8.4-10.2); Carbon Dioxide 33 mmol/L (22-30); Chloride 101 mmol/L (98-107); Glucose 113 mg/dL (74-99); Non-African American GFR(CKD) >90 (>60 ml/min/1.73 sqM); Potassium 4.4 mmol/L (3.5-5.1); Sodium 141 mmol/L (137-145)
[2019-04-07] MEDS: CARVEDILOL 6.25 MG TAB PO SCH ×2 (06:47→17:23)
[2019-04-07] MEDS ORDERED: cloNIDine 0.3 MG/24HR PATCH TRANSDERM SCH (08:00)
[2019-04-07] MEDS: BUDESONIDE 1 MG/2 ML NEBU INHALATION SCH ×2 (08:26→19:59)
[2019-04-07] MEDS: FORMOTEROL FUMARATE 20 MCG/2 ML NEBU INHALATION SCH ×2 (08:26→19:59)
[2019-04-07] MEDS ORDERED: FUROSEMIDE 10 MG/ML 4 ML VIAL IV STA (08:42)
--- NOTE | 2019-04-07 08:43 | P.PN ---
Subjective Progress Note Date: 04/07/19 Principal diagnosis: Hyponatremia and metabolic encephalopathy, acute hypercapnic and hypoxemic respiratory failure This is a 63-year-old white male, poor historian, known history of schizophrenia, hypertension, patient is on multiple psychiatric medications, presented to the ER with mostly mental status change and worsening confusion. Patient was found to have extremely low sodium of 111, and his chest x-ray is suggestive of right lower lobe aspiration pneumonia. Patient was noted to have leukocytosis, he was noted to be hypovolemic clinically, and patient was initially started on 3% saline his repeat serum sodium today is 117. Nephrology has the patient on consultation, urine and serum osmolalities are pending. Considering the patient was admitted to the ICU and he was placed on 3% hypertonic saline, I was asked to see him on consultation. However upon my eval uation of the patient, he seems to be confused, in no form of respiratory distress, and no further information could be obtained from the patient himself. No family members at bedside. Reevaluated today on 03/31/2019, patient remains in the ICU, his pulmonary status is rather marginal. Patient is not doing well with incentive spirometry, and he does not follow instructions as far as deep coughing and deep breathing and clearing secretions. He does sound wet, and crackly, but the patient does not cough to clear his secretions. Chest x-ray showed mild pulmonary vascular congestion, and right lower lobe atelectasis, possibly right sided pneumonia. Sodium today is up to 121. His renal profile is normal BUN is 10 and creatinine 0.57. WBC count is 20.1. Remains on antibiotics for presumptive aspiration. Patient was seen by nephrology yesterday, and he was felt to have hypovolemic hyponatremia. Patient continues to have a safety patrol officer at bedside. And he continues to be confused, and lethargic. At times he tries to get out of bed, and he is not coherent. Reevaluated today on 04/01/2019, patient deteriorated yesterday significantly. Around 5:00 yesterday, patient developed hypoxic and hypercapnic respiratory failure, I happened to be in the ICU at the time, patient was on nonrebreather mask, and when I assessed him, he was extremely difficult to arouse. Could not be aroused, and he had significant amount of wheezing. And he was using his accessory muscles to breathe. Hence intubated the patient immediately, placed on mechanical ventilation, and placed on propofol overnight. He was placed on bronchodilators, steroids. And reevaluated today. Chest x-ray is showing improvement in his right lower lobe pneumonia and atelectasis. His ventilator settings are assist control rate of 20, tidal volume of 500, FiO2 is 50% and PEEP of 5. Propofol is at 50 mcg/kg/m. Not requiring any pressors. ABG this morning showed a pO2 of 101 pCO2 of 43 pH of 7.47. Sodium is up to 127 today. WBC count is 17.3 hemoglobin is 12.5. Renal functioning is normal. Blood cultures are negative so far. Sputum cultures are pending. Patient remains on Unasyn, bronchodilators, Lovenox, methylprednisolone for his COPD exacerbation, he is also on GI and DVT prophylaxis. Patient is on Lovenox. Reevaluated today on 04/02/2019, patient remains intubated, mechanically ventilated.patient is on the same ventilator settings as yesterday, and FiO2 is 50%, PEEP is 5, tidal volume is 500 assist control rate of 20.ABG today is marginal pO2 is 74 pCO2 of 55 pH of 7.42. WBC count is 17.5 hemoglobin is 12.3 sodium is better up to 130.renal profile is normal bicarb is 35.chest x-ray co ntinues to show cardiomegaly and bibasilar airspace disease with atelectasis and possible underlying pneumonia bilaterally. Small right-sided pleural effusion is noted Reevaluated today on 04/03/2019, patient remains in the ICU, intubated and mechanically ventilated. His ventilator settings are tidal volume is 500 rate is 20 FiO2 40% and PEEP is 5. ABG showed a pO2 of 111 pCO2 of 57 pH of 7.43 and this was on 50% FiO2. CBC showed WBC count of 16.8 hemoglobin is 12.6 electrolytes are normal renal profile is normal. Chest x-ray showed worsening bibasilar pneumonia and small pleural effusions. On 04/04/2019 patient seen in follow-up in intensive care unit. He is intubated, sedated on mechanical ventilator, current vent settings are as control mode of ventilation with a rate of 20, tidal M5 100, FiO2 40% and PEEP of 5, this morning blood gases show pO2 of 80, pCO2 53, and pH is 7.44. Maintenance IV fluids include 0.9 and a rate of 10, to prevent at a rate of 50 mics per kilo per minute. Antibiotic coverage in the form of Unasyn however sputum culture showed Enterobacter cloacae which was resistant to Unasyn, and antibiotic coverage was switched to Zosyn, patient is currently sedated, opens his eyes and follow simple commands, we'll proceed with spontaneous breathing trials with CPAP of 5 and pressure support of 5. This morning's blood work was reviewed, showing white blood cell count of 18.4, hemoglobin of 12.3, sodium was 135, potassium is 4.7, chloride is 97, CO2 34, BUN is 20 creatinine 0.57. Lung sounds are diminished, with a few scattered rhonchi, apparently patient still has significant amount of orotracheal secretions. On 04/05/2019 patient seen in follow-up in the intensive care unit, he is currently awake, he sedation is on hold, he is following simple commands, appears to be calm and not in any acute distress, he still intubated on mechanical ventilator, with the assist control mode of ventilation with a rate of 20, tidal vitamin 500, FiO2 of 40% and PEEP of 5 and this morning's blood gases showed pO2 of 93 pCO2 55 and pH of 7.44. Maintenance IV fluids at rate of 100, tube feedings of vital high-protein rate of 27 with a goal of 27. Today's chest x-ray has been reviewed showing improvement bibasilar aeration and improvement in the appearance of the right lower lobe infiltrate, residual small pleural effusions. We'll proceed with the DIS and a spontaneous breathing trials, yesterday patient was given a CPAP trial however patient failed, and post spontaneous breathing trial blood gases showed increase in his pCO2 of 10. he remains on Zosyn for antibiotic coverage, and culture showed Enterobacter cloacae, with culture showed no growth. His white count is trending down, down to 14.8, hemoglobin is 11.7, sodium is 137, potassium is 4.6, chloride is 96, CO2 is 37, B1 is 22, creatinine 0.61. She remains on IV Solu-Medrol, breathing treatments, and yesterday we gave him an extra dose of IV Lasix, he is in -975 ML negative fluid balance On 04/06/2019 patient seen in follow-up in the intensive care unit, he was successfully extubated yesterday on 04/05/2019, today he is awake and alert, appropriately, patient is on 5 L of oxygen per nasal cannula, and his pulse ox is 93-96%, he is afebrile. His cough is weak. Does not sound overly congested, lung sounds are diminished, no fever or chills, he continues on Zosyn for eviden ce of enterobacter cloacae in the sputum culture. Denies any worsening dyspnea, breathing seems to be comfortable, he is tolerating ice chips, he is awaiting bedside swallow evaluation by the speech therapist, however patient has been hypertensive stolid blood pressure in the 190s and diastolic in the 100s, and he has received multiple doses of labetalol. He has been restarted on his Coreg this morning, and if his blood pressure remains elevated we will start him on cleviprex. Today's chest x-ray has been reviewed showing interval extubation, and persistent cardiomegaly with mild central vascular congestion and associated patchy bibasilar atelectasis. On 04/07/2019 patient seen in follow-up in the intensive care unit, he was extubated on 04/05/2019, voiding extubation well, he is currently on 11 L per high flow nasal cannula, his pulse ox is 87-90%. Cough remains weak, nonproductive, tongue sounds are diminished, no significant wheezing or rhonchi appreciated on today's exam. He is afebrile, his sputum culture showed Enterobacter cloacae. Blood Culture showed no growth. Chest x-ray has been reviewed, showing persistent currently medically with mild central vessel congestion and patchy bibasilar atelectasis and/or infiltrates. STable in the appearance. Yesterday we gave the patient dose of IV Lasix, patient is in negative fluid balance over the last 24 hours, in -2932 mL. Less wheezy on today's exam, continues on nebulized bronchodilators and steroids. Patient deve loped hypertension yesterday, and he remains on Cleviprex drip currently at 4 mg per hour, and 0.9 normal saline at a rate of 10 ML per hour, he is also on transdermal Catapres No. 3. No chest pain today Objective - Vital Signs Vital signs: Vital Signs Temp 98.8 F 04/07/19 00:00 Pulse 87 04/07/19 08:26 Resp 22 04/07/19 07:00 BP 129/89 04/07/19 07:00 Pulse Ox 90 L 04/07/19 07:00 Intake & Output 04/06/19 04/07/19 04/07/19 18:59 06:59 18:59 Intake Total 292.433 665.1 0 Output Total 2440 1450 100 Balance -2147.567 -784.9 -100 Weight 98.7 kg Intake: IV 220 220 0 0.9 Normal Saline @ 10mls 120 120 0 /hr Piperacillin-Tazobactam 3 100 100 .375 gm In Sodium Chloride 0.9% 100 ml @ 25 mls/hr IVPB Q8HR [facility] Rx# :[id number] Intake, IV Titration 72.433 45.1 Amount Clevidipine Butyrate 25 72.433 45.1 mg In Empty Bag 1 bag @ 1 MG/HR 2 mls/hr IV .Q24H [facility] Rx#:[id number] Oral 400 Output: Urine 2440 1450 100 Other: Voiding Method Indwelling Catheter Indwelling Catheter ABP, PAP, CO, CI - Last Documented Arterial Blood Pressure 145/74 - Exam GENERAL EXAM: Alert, intubated, 63-year-old white male, comfortable, on 11 L of oxygen, with a pulse ox of 93-96%, comfortable in no apparent distress. HEAD: Normocephalic/atraumatic. EYES: Normal reaction of pupils, equal size. Conjunctiva pink, sclera white. NOSE: Clear with pink turbinates. THROAT: No erythema or exudates. NECK: No masses, no JVD, no thyroid enlargement, no adenopathy. CHEST: No chest wall deformity. Symmetrical expansion. LUNGS: Equal air entry with no scattered rhonchi, no wheeze, rhonchi or dullness. CVS: Regular rate and rhythm, normal S1 and S2, no gallops, no murmurs, no rubs ABDOMEN: Soft, nontender. No hepatosplenomegaly, normal bowel sounds, no guarding or rigidity. EXTREMITIES: No clubbing, no edema, no cyanosis, 2+ pulses and upper and lower extremities. MUSCULOSKELETAL: Muscle strength and tone normal. SPINE: No scoliosis or deformity SKIN: No rashes CENTRAL NERVOUS SYSTEM: Alert and oriented -1. No focal deficits, tone is normal in all 4 extremities. - Labs CBC & Chem 7: 04/07/19 05:38 04/07/19 05:38 Labs: Abnormal Lab Results - Last 24 Hours (Table) 04/06/19 04/07/19 04/07/19 Range/Units 12:01 05:38 05:38 WBC 18.8 H (3.8-10.6) k/uL Carbon Dioxide 33 H (22-30) mmol/L BUN 27 H (9-20) mg/dL Creatinine 0.57 L (0.66-1.25) mg/dL Glucose 113 H (74-99) mg/dL POC Glucose (mg/dL) 104 H (75-99) mg/dL 04/07/19 Range/Units 05:40 WBC (3.8-10.6) k/uL Carbon Dioxide (22-30) mmol/L BUN (9-20) mg/dL Creatinine (0.66-1.25) mg/dL Glucose (74-99) mg/dL POC Glucose (mg/dL) 111 H (75-99) mg/dL Assessment and Plan Plan: Assessment: #1. Acute hypoxic and hypercapnic respiratory failure secondary to acute exacerbation of COPD and bibasilar pneumonia related to Enterobacter cloacae #2. Severe hyponatremia, possible SIADH, could be related to psychiatric medications, improved, responded well to treatment #3. Acute mental status changes, acute metabolic encephalopathy secondary to hyponatremia #4. History of type 2 diabetes mellitus #5. History of schizophrenia #6. History of nicotine dependence syndrome #7. Possible right lower lobe aspiration pneumonia #8. Hypertension, and patient remains on Cleviprex drip for blood pressure control Plan: Encourage deep breathing and coughing, provided incentive spirometer, we'll give the patient additional dose of IV Lasix, patient awaiting evaluation by speech therapy today, yesterday we discussed the case with speech therapy who did not recommend oral meds at this point, she may need a modified barium swallow, we will decrease the dose of his IV Solu-Medrol down to 40 mg every 12 hours and once the patient is able to take oral meds will transition to oral prednisone, less wheezing on today's exam. Today's chest x-ray has been reviewed showing stable findings of bibasilar infiltrates. Pt has been afebrile, he is on appropriate antibiotics for Enterobacter cloacae in the sputum. Physical therapy consultation and patient will need to mobilized, and up on side of bed and dangling and in chair if tolerates well. GI/DVT prophylaxis. Wean FiO2, increase incentive spirometry use I performed a history & physical examination of the patient and discussed their management with my nurse practitioner, Iraida Major. I reviewed the nurse practitioner's note and agree with the documented findings and plan of care. Lung sounds are positive for a few scattered rhonchi. The findings and the impression was discussed with the patient. I attest to the documentation by the nurse practitioner. Time with Patient: Less than 30
--- NOTE | 2019-04-07 08:45 | XR ---
EXAMINATION TYPE: XR chest 1V portable DATE OF EXAM: 04/07/2019 HISTORY: Shortness of breath. COMPARISON: 04/06/2019 TECHNIQUE: Single view of the chest is submitted. FINDINGS: Demonstrated are scattered senescent parenchymal change. Left basilar infiltrate and/or atelectasis with small effusion. Pulmonary venous congestion without o vert failure. The heart is stable. Hilar and mediastinal structures are within normal limits. Degenerative changes are seen of the dorsal spine. IMPRESSION: 1. Left basilar infiltrate and/or atelectasis with small effusion. Pulmonary venous congestion witho ut overt failure.
[2019-04-07] MEDS: PANTOPRAZOLE 40 MG/10 ML VIAL IV SCH (08:53)
[2019-04-07] MEDS: ENOXAPARIN 40 MG/0.4 ML SYRINGE SQ SCH (08:54)
--- NOTE | 2019-04-07 10:26 | P.PN ---
Subjective Principal diagnosis: Patient is seen in follow-up for hyponatremia. Sodium level 141 today. Remains off IV fluids. No active complaints at this time. Vital signs are stable. General: The patient appeared well nourished and normally developed. HEENT: Head exam is unremarkable. Neck is without jugular venous distension. LUNGS: Lungs are clear to auscultation and percussion. Breath sounds decreased. HEART: Rate and Rhythm are regular. First and second heart sounds normal. No murmurs, rubs or gallops. ABDOMEN: Abdominal exam reveals normal bowel sounds. Non-tender and non- distended. EXTREMITITES: No clubbing, cyanosis, or edema. Objective - Vital Signs Vital signs: Vital Signs Temp 98.8 F 04/07/19 00:00 Pulse 93 04/07/19 08:55 Resp 28 H 04/07/19 08:00 BP 114/86 04/07/19 08:00 Pulse Ox 94 L 04/07/19 08:00 Intake & Output 04/06/19 04/07/19 04/07/19 18:59 06:59 18:59 Intake Total 292.433 665.1 69 Output Total 2440 1450 300 Balance -2147.567 -784.9 -231 Weight 98.7 kg Intake: IV 220 220 20 0.9 Normal Saline @ 10mls 120 120 20 /hr Piperacillin-Tazobactam 3 100 100 .375 gm In Sodium Chloride 0.9% 100 ml @ 25 mls/hr IVPB Q8HR [facility] Rx# :[id number] Intake, IV Titration 72.433 45.1 49 Amount Clevidipine Butyrate 25 72.433 45.1 49 mg In Empty Bag 1 bag @ 1 MG/HR 2 mls/hr IV .Q24H [facility] Rx#:[id number] Oral 400 Output: Urine 2440 1450 300 Other: Voiding Method Indwelling Catheter Indwelling Catheter Indwelling Catheter ABP, PAP, CO, CI - Last Documented Arterial Blood Pressure 145/91 - Labs CBC & Chem 7: 04/07/19 05:38 04/07/19 05:38 Labs: Abnormal Lab Results - Last 24 Hours (Table) 04/06/19 04/07/19 04/07/19 Range/Units 12:01 05:38 05:38 WBC 18.8 H (3.8-10.6) k/uL Carbon Dioxide 33 H (22-30) mmol/L BUN 27 H (9-20) mg/dL Creatinine 0.57 L (0.66-1.25) mg/dL Glucose 113 H (74-99) mg/dL POC Glucose (mg/dL) 104 H (75-99) mg/dL 04/07/19 Range/Units 05:40 WBC (3.8-10.6) k/uL Carbon Dioxide (22-30) mmol/L BUN (9-20) mg/dL Creatinine (0.66-1.25) mg/dL Glucose (74-99) mg/dL POC Glucose (mg/dL) 111 H (75-99) mg/dL Assessment and Plan Plan: Assessment: 1. Severe hyponatremia status post 3% saline. Etiology is SSRI use and PNA. Improved. 2. Pneumonia maintained on antibiotics. 3. History of schizophrenia. 4. Mild volume overload. He's been receiving dose of IV Lasix daily for the la st 3 days. Plan: Encourage oral intake. Repeat electrolytes in the morning. Add Lasix 20 mg orally once daily.
[2019-04-07 11:50] LABS: Glucose,Whole Blood 106 mg/dL (75-99)
--- NOTE | 2019-04-07 14:53 | P.PN ---
Subjective Progress Note Date: 04/07/19 Principal diagnosis: 63-year-old male with known history of hypertension schizophrenia came in completely confused, altered mental status. patient is unable to provide any history to me patient as he is excessively drowsy but able to wake up with verbal stimuli. But unable to provide any history. Patient is found to be severely hyponatremic also found to have aspiration pneumonia. Patient does have significant leukocytosis. Patient in the past was treated for hypovolemic as was hypovolemic hyponatremia. Patient serum sodium is extremely low at 113 on 3% saline to 117. Nephrology is following the patient I did order urine osmolality, serum osmolality urine random sodium urine didn't random creatinine urinary uric acid although these labs will not be reliable because as patient is already on saline now. 03/31/2019 Patient is currently in the ICU being closely monitored with a safety glass installer at the bedside. Patient continues to be confused and quite lethargic. Per sitter, patient occasionally tries to get up out of the bed but is not coherent as to what he is doing. Patient continues to fall asleep when talking with the patient but is arousable to voice. Current sodium is 121. Nephrology is following. White blood count has also improved slightly and is trending down and is currently 20.1. Today's chest x-ray shows possible underlying mild pulmonary vascular congestion with the right hilar masslike prominence and persistent right basilar obesity. 04/01/2019 Patient currently remains in the ICU and is being closely monitored and patient was intubated last night as he continued to deteriorate and developed hypoxic and hypercapnic respiratory failure. Patient was very lethargic and unarousable and patient was intubated with Dr. Miranda. Currently patient is sedated and seems to be much more comfortable. Chest x-ray today shows some improvement of the right lower lobe pneumonia. Patient's sodium is currently 126 and 3% normal saline has been discontinued. Nephrology is following. Sputum cultures thus far showing gram-negative bacilli and patient is currently on Unasyn and will continue at this time. 04/02/2019 Patient remains intubated patient remains hypercapnic sick and hypercapnic because of which the activation was not attempted today. Patient remains on pressor support patient is on minimal vent settings at this time patient on 50 mL of normal saline as it was believed that patient has uremic hyponatremia improved with the 3% saline and now patient has some metabolic alkalosis partly because of the respiratory compensation and the there may be a competent of the contraction alkalosis. His serum sodium is 130on admission serum sodium is 114. 04/03/2019 Patient's serum sodium did improve patient remains intubated patient will be on sedation vacation today no plans on weaning trial today as per pulmonology. 04/04/2019 Patient is sitting up and appears to be in no acute distress. Patient is currently being closely monitored in the ICU and will continue at this time. Patient remains ventilated and undergoing trial breathing and not tolerating well at this time. Patient will continue on the vent at this time. Pulmonary is following closely. Sputum culture results have resulted with enterobacter cloacae and IV antibiotics and been adjusted to Zosyn and will continue at this time. Patient remains on tube feedings and tolerating well thus far. Will continue to monitor closely. Serum sodium is 135 today. Willl discontinue IV fluids. 04/05/2019 Patient is sitting up and currently remains in the ICU being closely monitored. No acute overnight issues. Patient is awake and was recently just extubated with Dr. Syed and tolerating well thus far. Patient is currently on 5 L of oxygen via nasal cannula with oxygen saturations in the low 90s. Patient is responding appropriately to commands. Sitter is at the bedside for safety as the patient attempts to get out of bed at times. Awaiting to have a swallow eval done with speech possibly today or tomorrow as he is currently nothing by mouth. Repeat chest x-ray today shows stable findings and continues with some possible mild venous congestion. Patient will be given a dose of IV Lasix again. Patient is currently off IV fluids and will continue at this time. 04/06/2019 Patient is sitting up in currently remains in the ICU being closely monitored. Patient is currently requiring high flow oxygen via nasal cannula at 15 L. Pulmonary is following closely. Patient is also currently on Cleviprex for blood pressure control if he was having elevated blood pressures throughout the night and this morning. Patient is able to respond appropriately to simple commands but continues to not talk much. Patient is hard of hearing. Patient underwent a swallow eval and failed and will continue nothing by mouth with just ice chips at this time. Repeat chest x-ray shows no real improvement. Patient will be started on steroids and was given another dose of IV Lasix. 04/07/2019 Patient is sitting up in the chair and appears to be in no acute distress. Patient is currently being closely monitored in the ICU as he presently remains on a Cleviprex drip for tighter blood pressure control. Catapres patch was added. Patient currently remains nothing by mouth except small amounts of ice chips as he continues to fail swallow eval's. May need a modified barium swallow. Patient continues to receive daily doses of IV Lasix as repeat chest x-rays continue to show vascular congestion. Patient will be started on a dose of oral Lasix. Case management and social work are following and awaiting for guardianship that is expected to occur this Thursday. Will continue to monitor closely. Objective - Vital Signs Vital signs: Vital Signs Temp 98.8 F 04/07/19 00:00 Pulse 93 04/07/19 08:55 Resp 28 H 04/07/19 08:00 BP 114/86 04/07/19 08:00 Pulse Ox 94 L 04/07/19 08:00 Intake & Output 04/06/19 04/07/19 04/07/19 18:59 06:59 18:59 Intake Total 292.433 665.1 69 Output Total 2440 1450 300 Balance -2147.567 -784.9 -231 Weight 98.7 kg Intake: IV 220 220 20 0.9 Normal Saline @ 10mls 120 120 20 /hr Piperacillin-Tazobactam 3 100 100 .375 gm In Sodium Chloride 0.9% 100 ml @ 25 mls/hr IVPB Q8HR [facility] Rx# :[id number] Intake, IV Titration 72.433 45.1 49 Amount Clevidipine Butyrate 25 72.433 45.1 49 mg In Empty Bag 1 bag @ 1 MG/HR 2 mls/hr IV .Q24H [facility] Rx#:[id number] Oral 400 Output: Urine 2440 1450 300 Other: Voiding Method Indwelling Catheter Indwelling Catheter Indwelling Catheter ABP, PAP, CO, CI - Last Documented Arterial Blood Pressure 145/91 - Exam GENERAL: 63-year-old male, awake and alert and sitting up in the chair and responding to simple commands. Patient is currently on high flow oxygen via nasal cannula at 11 L HEENT: Pupils are round and equally reacting to light. EOMI. No scleral icterus. No conjunctival pallor. Normocephalic, atraumatic. No pharyngeal erythema. No thyromegaly. CARDIOVASCULAR: S1 and S2 present. No murmurs, rubs, or gallops. PULMONARY: Lung sounds diminished at the bases with a few scattered crackles noted ABDOMEN: Soft, obese, nontender, nondistended, normoactive bowel sounds. No palpable organomegaly. MUSCULOSKELETAL: No joint swelling or deformity. EXTREMITIES: No cyanosis, clubbing, or pedal edema. NEUROLOGICAL: Alert and awake, cooperative SKIN: No rashes. Left index finger noted with scabs status post recent abscess and laceration, old dressing of left index finger was removed and wound was cleansed with no signs of redness, swelling, or drainage noted. - Labs CBC & Chem 7: 04/07/19 05:38 04/07/19 05:38 Labs: Abnormal Lab Results - Last 24 Hours (Table) 04/06/19 04/07/19 04/07/19 Range/Units 12:01 05:38 05:38 WBC 18.8 H (3.8-10.6) k/uL Carbon Dioxide 33 H (22-30) mmol/L BUN 27 H (9-20) mg/dL Creatinine 0.57 L (0.66-1.25) mg/dL Glucose 113 H (74-99) mg/dL POC Glucose (mg/dL) 104 H (75-99) mg/dL 04/07/19 Range/Units 05:40 WBC (3.8-10.6) k/uL Carbon Dioxide (22-30) mmol/L BUN (9-20) mg/dL Creatinine (0.66-1.25) mg/dL Glucose (74-99) mg/dL POC Glucose (mg/dL) 111 H (75-99) mg/dL Assessment and Plan Assessment: -Severe hyponatremia: Multifactorial there may be a component of psychogenic polydipsia, SIADH from medications as well as hypovolemia. 3% saline has been discontinued there is a component of hypervolemia because of which patient was started on IV fluids as mentioned above. -Acute hypoxic and hypercapnic respiratory failure syndrome with COPD exacerbation and may be a right lower lobe pneumonia and aspiration pneumonia because of which the patient is on Zosyn at this time. -Mediastinal lymphadenopathy which need to be followed as an outpatient once he is stable with repeat CAT scan. -Metabolic encephalopathy secondary to hyponatremia -COPD with acute exacerbation patient systemic steroids -Type 2 diabetes mellitus -Schizophrenia -Nicotine abuse *for above-mentioned chronic medical problems patient will be resumed on appropriate home medications whenever he can tolerate oral medications. Speech therapy was consulted because of his mental status to assess if he can actually swallow. May need a modified barium swallow eval Plan: Continue current medications, management, and symptomatic treatment. Multiple medical consultations following. Patient will remain in the ICU for close monitoring at this time. Patient is being maintained on high flow oxygen at 11 L via nasal cannula. Patient continues on Cleviprex drip for blood pressure control and Catapres patch was added. Will continue to monitor vital signs and labs closely. Patient was started on IV steroids and will be started on oral Lasix. Patient remains nothing by mouth except for ice chips and crushed medi cations at this time. sodium today is 141. Will repeat a.m. labs. Further recommendations to follow.
[2019-04-07 18:07] LABS: Glucose,Whole Blood 96 mg/dL (75-99)
[2019-04-07 23:41] LABS: Glucose,Whole Blood 101 mg/dL (75-99)
[2019-04-08] MEDS: IPRATROPIUM-ALBUTEROL 3 ML NEB INHALATION SCH ×5 (05:31→20:25)
[2019-04-08] MEDS: INSULIN ASPART (NovoLOG) 100 UNIT/ML VIAL SQ SCH ×4 (05:53→22:00)
[2019-04-08] MEDS: CARVEDILOL 6.25 MG TAB PO SCH ×2 (05:54→17:51)
[2019-04-08 05:55] LABS: Glucose,Whole Blood 106 mg/dL (75-99)
[2019-04-08 06:02] LABS: African American GFR (CKD) >90 (>60 ml/min/1.73 sqM); Anion Gap 10 mmol/L; Blood Urea Nitrogen 35 mg/dL (9-20); Carbon Dioxide 30 mmol/L (22-30); Chloride 101 mmol/L (98-107); Glucose 111 mg/dL (74-99); Non-African American GFR(CKD) >90 (>60 ml/min/1.73 sqM); Sodium 141 mmol/L (137-145)
[2019-04-08 06:18] LABS: HCT 44.1 % (39.0-53.0); HGB 14.2 gm/dL (13.0-17.5); MCH 29.2 pg (25.0-35.0); MCHC 32.1 g/dL (31.0-37.0); Platelet Count 329 k/uL (150-450); RBC 4.84 m/uL (4.30-5.90); WBC 23.2 k/uL (3.8-10.6)
[2019-04-08] MEDS: FORMOTEROL FUMARATE 20 MCG/2 ML NEBU INHALATION SCH ×2 (07:45→20:24)
[2019-04-08] MEDS: BUDESONIDE 1 MG/2 ML NEBU INHALATION SCH ×2 (07:45→20:24)
[2019-04-08] MEDS: methylPREDNISolone SOD SUCCI 40 MG/ML 1 ML VIAL IV SCH ×2 (08:41→16:45)
[2019-04-08] MEDS: PANTOPRAZOLE 40 MG/10 ML VIAL IV SCH (08:41)
[2019-04-08] MEDS: PIPERACILLIN-TAZOBACTAM 3.375 GM in SODIUM CHLORIDE 0.9% 100 ML IVPB SCH ×3 (08:41→23:31)
[2019-04-08] MEDS: ENOXAPARIN 40 MG/0.4 ML SYRINGE SQ SCH (08:42)
--- NOTE | 2019-04-08 09:24 | P.PN ---
Subjective Progress Note Date: 04/08/19 Principal diagnosis: Hyponatremia and metabolic encephalopathy, acute hypercapnic and hypoxemic respiratory failure This is a 63-year-old white male, poor historian, known history of schizophrenia, hypertension, patient is on multiple psychiatric medications, presented to the ER with mostly mental status change and worsening confusion. Patient was found to have extremely low sodium of 111, and his chest x-ray is suggestive of right lower lobe aspiration pneumonia. Patient was noted to have leukocytosis, he was noted to be hypovolemic clinically, and patient was initially started on 3% saline his repeat serum sodium today is 117. Nephrology has the patient on consultation, urine and serum osmolalities are pending. Considering the patient was admitted to the ICU and he was placed on 3% hypertonic saline, I was asked to see him on consultation. However upon my eval uation of the patient, he seems to be confused, in no form of respiratory distress, and no further information could be obtained from the patient himself. No family members at bedside. Reevaluated today on 03/31/2019, patient remains in the ICU, his pulmonary status is rather marginal. Patient is not doing well with incentive spirometry, and he does not follow instructions as far as deep coughing and deep breathing and clearing secretions. He does sound wet, and crackly, but the patient does not cough to clear his secretions. Chest x-ray showed mild pulmonary vascular congestion, and right lower lobe atelectasis, possibly right sided pneumonia. Sodium today is up to 121. His renal profile is normal BUN is 10 and creatinine 0.57. WBC count is 20.1. Remains on antibiotics for presumptive aspiration. Patient was seen by nephrology yesterday, and he was felt to have hypovolemic hyponatremia. Patient continues to have a safety technician at bedside. And he continues to be confused, and lethargic. At times he tries to get out of bed, and he is not coherent. Reevaluated today on 04/01/2019, patient deteriorated yesterday significantly. Around 5:00 yesterday, patient developed hypoxic and hypercapnic respiratory failure, I happened to be in the ICU at the time, patient was on nonrebreather mask, and when I assessed him, he was extremely difficult to arouse. Could not be aroused, and he had significant amount of wheezing. And he was using his accessory muscles to breathe. Hence intubated the patient immediately, placed on mechanical ventilation, and placed on propofol overnight. He was placed on bronchodilators, steroids. And reevaluated today. Chest x-ray is showing improvement in his right lower lobe pneumonia and atelectasis. His ventilator settings are assist control rate of 20, tidal volume of 500, FiO2 is 50% and PEEP of 5. Propofol is at 50 mcg/kg/m. Not requiring any pressors. ABG this morning showed a pO2 of 101 pCO2 of 43 pH of 7.47. Sodium is up to 127 today. WBC count is 17.3 hemoglobin is 12.5. Renal functioning is normal. Blood cultures are negative so far. Sputum cultures are pending. Patient remains on Unasyn, bronchodilators, Lovenox, methylprednisolone for his COPD exacerbation, he is also on GI and DVT prophylaxis. Patient is on Lovenox. Reevaluated today on 04/02/2019, patient remains intubated, mechanically ventilated.patient is on the same ventilator settings as yesterday, and FiO2 is 50%, PEEP is 5, tidal volume is 500 assist control rate of 20.ABG today is marginal pO2 is 74 pCO2 of 55 pH of 7.42. WBC count is 17.5 hemoglobin is 12.3 sodium is better up to 130.renal profile is normal bicarb is 35.chest x-ray co ntinues to show cardiomegaly and bibasilar airspace disease with atelectasis and possible underlying pneumonia bilaterally. Small right-sided pleural effusion is noted Reevaluated today on 04/03/2019, patient remains in the ICU, intubated and mechanically ventilated. His ventilator settings are tidal volume is 500 rate is 20 FiO2 40% and PEEP is 5. ABG showed a pO2 of 111 pCO2 of 57 pH of 7.43 and this was on 50% FiO2. CBC showed WBC count of 16.8 hemoglobin is 12.6 electrolytes are normal renal profile is normal. Chest x-ray showed worsening bibasilar pneumonia and small pleural effusions. On 04/04/2019 patient seen in follow-up in intensive care unit. He is intubated, sedated on mechanical ventilator, current vent settings are as control mode of ventilation with a rate of 20, tidal M5 100, FiO2 40% and PEEP of 5, this morning blood gases show pO2 of 80, pCO2 53, and pH is 7.44. Maintenance IV fluids include 0.9 and a rate of 10, to prevent at a rate of 50 mics per kilo per minute. Antibiotic coverage in the form of Unasyn however sputum culture showed Enterobacter cloacae which was resistant to Unasyn, and antibiotic coverage was switched to Zosyn, patient is currently sedated, opens his eyes and follow simple commands, we'll proceed with spontaneous breathing trials with CPAP of 5 and pressure support of 5. This morning's blood work was reviewed, showing white blood cell count of 18.4, hemoglobin of 12.3, sodium was 135, potassium is 4.7, chloride is 97, CO2 34, BUN is 20 creatinine 0.57. Lung sounds are diminished, with a few scattered rhonchi, apparently patient still has significant amount of orotracheal secretions. On 04/05/2019 patient seen in follow-up in the intensive care unit, he is currently awake, he sedation is on hold, he is following simple commands, appears to be calm and not in any acute distress, he still intubated on mechanical ventilator, with the assist control mode of ventilation with a rate of 20, tidal vitamin 500, FiO2 of 40% and PEEP of 5 and this morning's blood gases showed pO2 of 93 pCO2 55 and pH of 7.44. Maintenance IV fluids at rate of 100, tube feedings of vital high-protein rate of 27 with a goal of 27. Today's chest x-ray has been reviewed showing improvement bibasilar aeration and improvement in the appearance of the right lower lobe infiltrate, residual small pleural effusions. We'll proceed with the DIS and a spontaneous breathing trials, yesterday patient was given a CPAP trial however patient failed, and post spontaneous breathing trial blood gases showed increase in his pCO2 of 10. he remains on Zosyn for antibiotic coverage, and culture showed Enterobacter cloacae, with culture showed no growth. His white count is trending down, down to 14.8, hemoglobin is 11.7, sodium is 137, potassium is 4.6, chloride is 96, CO2 is 37, B1 is 22, creatinine 0.61. She remains on IV Solu-Medrol, breathing treatments, and yesterday we gave him an extra dose of IV Lasix, he is in -975 ML negative fluid balance On 04/06/2019 patient seen in follow-up in the intensive care unit, he was successfully extubated yesterday on 04/05/2019, today he is awake and alert, appropriately, patient is on 5 L of oxygen per nasal cannula, and his pulse ox is 93-96%, he is afebrile. His cough is weak. Does not sound overly congested, lung sounds are diminished, no fever or chills, he continues on Zosyn for eviden ce of enterobacter cloacae in the sputum culture. Denies any worsening dyspnea, breathing seems to be comfortable, he is tolerating ice chips, he is awaiting bedside swallow evaluation by the speech therapist, however patient has been hypertensive stolid blood pressure in the 190s and diastolic in the 100s, and he has received multiple doses of labetalol. He has been restarted on his Coreg this morning, and if his blood pressure remains elevated we will start him on cleviprex. Today's chest x-ray has been reviewed showing interval extubation, and persistent cardiomegaly with mild central vascular congestion and associated patchy bibasilar atelectasis. On 04/07/2019 patient seen in follow-up in the intensive care unit, he was extubated on 04/05/2019, voiding extubation well, he is currently on 11 L per high flow nasal cannula, his pulse ox is 87-90%. Cough remains weak, nonproductive, tongue sounds are diminished, no significant wheezing or rhonchi appreciated on today's exam. He is afebrile, his sputum culture showed Enterobacter cloacae. Blood Culture showed no growth. Chest x-ray has been reviewed, showing persistent currently medically with mild central vessel congestion and patchy bibasilar atelectasis and/or infiltrates. STable in the appearance. Yesterday we gave the patient dose of IV Lasix, patient is in negative fluid balance over the last 24 hours, in -2932 mL. Less wheezy on today's exam, continues on nebulized bronchodilators and steroids. Patient deve loped hypertension yesterday, and he remains on Cleviprex drip currently at 4 mg per hour, and 0.9 normal saline at a rate of 10 ML per hour, he is also on transdermal Catapres No. 3. No chest pain today. On 04/08/2019 patient seen in follow-up in the intensive care unit, he is up in the recliner today, currently on 8 L per high flow nasal cannula, is maintaining stable oxygenation, his pulse ox is 90%, this could probably be weaned further, he is afebrile, hemodynamically patient is stable, Cleviprex drip has been discontinued, 0.9 normal saline at a rate of 20 ML per hour. Patient has been extubated for last 72 hours, tolerating extubation well, no signs of any respiratory distress, his cough is stronger on today's exam he is able to clear his throat, he is working on incentive spirometer with encouragement, achieving 750 ML on the today. Lung sounds are diminished, with some scattered rhonchi, no significant wheezing, is on Zosyn for Enterobacter cloacae in the sputum culture. Patient has been afebrile, patient will have a repeat swallow evaluation today and the possibility of modified barium swallow. No new chest x- ray Objective - Vital Signs Vital signs: Vital Signs Temp 97.8 F 04/08/19 04:00 Pulse 84 04/08/19 08:05 Resp 24 04/08/19 08:00 BP 133/95 04/08/19 08:00 Pulse Ox 99 04/08/19 08:00 Intake & Output 04/07/19 04/08/19 04/08/19 18:59 06:59 18:59 Intake Total 219 223.267 20 Output Total 1470 590 70 Balance -1251 -366.733 -50 Weight 98.7 kg 94.2 kg Intake: IV 120 220 20 0.9 Normal Saline @ 10mls 120 120 20 /hr Piperacillin-Tazobactam 3 100 .375 gm In Sodium Chloride 0.9% 100 ml @ 25 mls/hr IVPB Q8HR [facility] Rx# :[id number] Intake, IV Titration 99 3.267 Amount Clevidipine Butyrate 25 99 3.267 mg In Empty Bag 1 bag @ 1 MG/HR 2 mls/hr IV .Q24H [facility] Rx#:[id number] Output: Urine 1470 590 70 Other: Voiding Method Indwelling Catheter Indwelling Catheter Indwelling Catheter ABP, PAP, CO, CI - Last Documented Arterial Blood Pressure 136/71 - Exam GENERAL EXAM: Alert, intubated, 63-year-old white male, comfortable, on 8 L of oxygen, with a pulse ox of 99%, comfortable in no apparent distress. HEAD: Normocephalic/atraumatic. EYES: Normal reaction of pupils, equal size. Conjunctiva pink, sclera white. NOSE: Clear with pink turbinates. THROAT: No erythema or exudates. NECK: No masses, no JVD, no thyroid enlargement, no adenopathy. CHEST: No chest wall deformity. Symmetrical expansion. LUNGS: Equal air entry with no scattered rhonchi, no wheeze, rhonchi or dullness. CVS: Regular rate and rhythm, normal S1 and S2, no gallops, no murmurs, no rubs ABDOMEN: Soft, nontender. No hepatosplenomegaly, normal bowel sounds, no guarding or rigidity. EXTREMITIES: No clubbing, no edema, no cyanosis, 2+ pulses and upper and lower extremities. MUSCULOSKELETAL: Muscle strength and tone normal. SPINE: No scoliosis or deformity SKIN: No rashes CENTRAL NERVOUS SYSTEM: Alert and oriented -1. No focal deficits, tone is n ormal in all 4 extremities. - Labs CBC & Chem 7: 04/08/19 05:12 04/08/19 05:12 Labs: Abnormal Lab Results - Last 24 Hours (Table) 04/07/19 04/07/19 04/08/19 Range/Units 11:38 23:30 05:12 WBC 23.2 H (3.8-10.6) k/uL BUN (9-20) mg/dL Glucose (74-99) mg/dL POC Glucose (mg/dL) 106 H 101 H (75-99) mg/dL 04/08/19 04/08/19 Range/Units 05:12 05:43 WBC (3.8-10.6) k/uL BUN 35 H (9-20) mg/dL Glucose 111 H (74-99) mg/dL POC Glucose (mg/dL) 106 H (75-99) mg/dL Assessment and Plan Plan: Assessment: #1. Acute hypoxic and hypercapnic respiratory failure secondary to acute exacerbation of COPD and bibasilar pneumonia related to Enterobacter cloacae #2. Severe hyponatremia, possible SIADH, could be related to psychiatric medications, improved, responded well to treatment #3. Acute mental status changes, acute metabolic encephalopathy secondary to hyponatremia #4. History of type 2 diabetes mellitus #5. History of schizophrenia #6. History of nicotine dependence syndrome #7. Possible right lower lobe aspiration pneumonia #8. Hypertension, and patient remains on Cleviprex drip for blood pressure con trol Plan: Continue current medical treatment, patient is doing well, encouraged breathing and coughing, encourage incentive spirometry use, we'll transition IV Solu- Medrol to oral prednisone today, patient will have a repeat swallow evaluation and possibility of a modified barium swallow, increase activity, consult physical therapy, continue with Zosyn, continue GI and DVT prophylaxis, continue with oral dose Lasix per nephrology, patient is stable to go out of intensive care unit to general medical floor today. I performed a history & physical examination of the patient and discussed their management with my nurse practitioner, Iraida Major. I reviewed the nurse practitioner's note and agree with the documented findings and plan of care. Lung sounds are positive for a few scattered rhonchi. The findings and the impression was discussed with the patient. I attest to the documentation by the nurse practitioner. Time with Patient: Less than 30
[2019-04-08 09:33] LABS: Lymphocytes # (M) 9.28 k/uL (1.0-4.8); Metamyelocytes # (M) 0.23 k/uL (0); Metamyelocytes % 1 %; Nucleated Red Blood Cells 0 /100 WBC (0-0)
[2019-04-08 09:34] LABS: Monocytes # (M) 1.39 k/uL (0-1.0); Neutrophils # (M) 12.53 k/uL (1.3-7.7); Neutrophils % (M) 54 %; Total Cells Counted 200
[2019-04-08 09:35] LABS: Poikilocytosis (M) Present
--- NOTE | 2019-04-08 10:19 | P.PN ---
Subjective Principal diagnosis: Patient is seen in follow-up for hyponatremia. Sodium level stable at 141 today. Maintained on oral Lasix. Denies chest pain or shortness of breath. No active complaints at this time. Vital signs are stable. General: The patient appeared well nourished and normally developed. HEENT: Head exam is unremarkable. Neck is without jugular venous distension. LUNGS: Lungs are clear to auscultation and percussion. Breath sounds decreased. HEART: Rate and Rhythm are regular. First and second heart sounds normal. No murmurs, rubs or gallops. ABDOMEN: Abdominal exam reveals normal bowel sounds. Non-tender and non- distended. EXTREMITITES: No clubbing, cyanosis, or edema. Objective - Vital Signs Vital signs: Vital Signs Temp 97.8 F 04/08/19 04:00 Pulse 84 04/08/19 08:05 Resp 24 04/08/19 08:00 BP 133/95 04/08/19 08:00 Pulse Ox 99 04/08/19 08:00 Intake & Output 04/07/19 04/08/19 04/08/19 18:59 06:59 18:59 Intake Total 219 223.267 20 Output Total 1470 590 70 Balance -1251 -366.733 -50 Weight 98.7 kg 94.2 kg Intake: IV 120 220 20 0.9 Normal Saline @ 10mls 120 120 20 /hr Piperacillin-Tazobactam 3 100 .375 gm In Sodium Chloride 0.9% 100 ml @ 25 mls/hr IVPB Q8HR [facility] Rx# :[id number] Intake, IV Titration 99 3.267 Amount Clevidipine Butyrate 25 99 3.267 mg In Empty Bag 1 bag @ 1 MG/HR 2 mls/hr IV .Q24H [facility] Rx#:[id number] Output: Urine 1470 590 70 Other: Voiding Method Indwelling Catheter Indwelling Catheter Indwelling Catheter ABP, PAP, CO, CI - Last Documented Arterial Blood Pressure 136/71 - Labs CBC & Chem 7: 04/08/19 05:12 04/08/19 05:12 Labs: Abnormal Lab Results - Last 24 Hours (Table) 04/07/19 04/07/19 04/08/19 Range/Units 11:38 23:30 05:12 WBC 23.2 H (3.8-10.6) k/uL Neutrophils # (Manual) 12.53 H (1.3-7.7) k/uL Lymphocytes # (Manual) 9.28 H (1.0-4.8) k/uL Monocytes # (Manual) 1.39 H (0-1.0) k/uL Metamyelocytes # (Man) 0.23 H (0) k/uL BUN (9-20) mg/dL Glucose (74-99) mg/dL POC Glucose (mg/dL) 106 H 101 H (75-99) mg/dL 04/08/19 04/08/19 Range/Units 05:12 05:43 WBC (3.8-10.6) k/uL Neutrophils # (Manual) (1.3-7.7) k/uL Lymphocytes # (Manual) (1.0-4.8) k/uL Monocytes # (Manual) (0-1.0) k/uL Metamyelocytes # (Man) (0) k/uL BUN 35 H (9-20) mg/dL Glucose 111 H (74-99) mg/dL POC Glucose (mg/dL) 106 H (75-99) mg/dL Assessment and Plan Plan: Assessment: 1. Severe hyponatremia status post 3% saline. Etiology is SSRI use and PNA. Improved. 2. Pneumonia maintained on antibiotics. 3. History of schizophrenia. 4. Mild volume overload maintained on oral Lasix. Plan: Encourage oral intake. Repeat electrolytes in the morning. Maintain Lasix 20 mg orally once daily. I will sign off at this time.
--- NOTE | 2019-04-08 12:30 | FL ---
EXAMINATION TYPE: FL barium swallow w video DATE OF EXAM: 04/08/2019 MODIFIED SWALLOW / DEGLUTITION STUDY CLINICAL HISTORY: Dysphagia. TECHNIQUE: Deglutition study is performed utilizing thin liquid barium, honey and nectar thick liqui d barium, barium thick pudding, and barium coated cracker. A total of 2 minutes 13 seconds of fluoros copic time utilized during procedure. 0 spot images saved to PACS. COMPARISON: None. FINDINGS: Exam slightly suboptimal as difficulty in getting adequate patient positioning. The oral an d pharyngeal phases show satisfactory initiation and propagation with all modalities tested. Satisfac tory mastication is seen with solid modalities tested. There is no evidence of penetration or aspira tion with any modality tested. No significant pharyngeal residue was appreciated. IMPRESSION: Suboptimal study without aspiration observed. Please refer to speech therapist notes for further details if necessary.
[2019-04-08] MEDS: FUROSEMIDE 20 MG TAB PO SCH (14:19)
--- NOTE | 2019-04-08 14:33 | P.PN ---
Subjective Progress Note Date: 04/08/19 Principal diagnosis: 63-year-old male with known history of hypertension schizophrenia came in completely confused, altered mental status. patient is unable to provide any history to me patient as he is excessively drowsy but able to wake up with verbal stimuli. But unable to provide any history. Patient is found to be severely hyponatremic also found to have aspiration pneumonia. Patient does have significant leukocytosis. Patient in the past was treated for hypovolemic as was hypovolemic hyponatremia. Patient serum sodium is extremely low at 113 on 3% saline to 117. Nephrology is following the patient I did order urine osmolality, serum osmolality urine random sodium urine didn't random creatinine urinary uric acid although these labs will not be reliable because as patient is already on saline now. 03/31/2019 Patient is currently in the ICU being closely monitored with a safety deposit clerk at the bedside. Patient continues to be confused and quite lethargic. Per sitter, patient occasionally tries to get up out of the bed but is not coherent as to what he is doing. Patient continues to fall asleep when talking with the patient but is arousable to voice. Current sodium is 121. Nephrology is following. White blood count has also improved slightly and is trending down and is currently 20.1. Today's chest x-ray shows possible underlying mild pulmonary vascular congestion with the right hilar masslike prominence and persistent right basilar obesity. 04/01/2019 Patient currently remains in the ICU and is being closely monitored and patient was intubated last night as he continued to deteriorate and developed hypoxic and hypercapnic respiratory failure. Patient was very lethargic and unarousable and patient was intubated with Dr. Miranda. Currently patient is sedated and seems to be much more comfortable. Chest x-ray today shows some improvement of the right lower lobe pneumonia. Patient's sodium is currently 126 and 3% normal saline has been discontinued. Nephrology is following. Sputum cultures thus far showing gram-negative bacilli and patient is currently on Unasyn and will continue at this time. 04/02/2019 Patient remains intubated patient remains hypercapnic sick and hypercapnic because of which the activation was not attempted today. Patient remains on pressor support patient is on minimal vent settings at this time patient on 50 mL of normal saline as it was believed that patient has uremic hyponatremia improved with the 3% saline and now patient has some metabolic alkalosis partly because of the respiratory compensation and the there may be a competent of the contraction alkalosis. His serum sodium is 130on admission serum sodium is 114. 04/03/2019 Patient's serum sodium did improve patient remains intubated patient will be on sedation vacation today no plans on weaning trial today as per pulmonology. 04/04/2019 Patient is sitting up and appears to be in no acute distress. Patient is currently being closely monitored in the ICU and will continue at this time. Patient remains ventilated and undergoing trial breathing and not tolerating well at this time. Patient will continue on the vent at this time. Pulmonary is following closely. Sputum culture results have resulted with enterobacter cloacae and IV antibiotics and been adjusted to Zosyn and will continue at this time. Patient remains on tube feedings and tolerating well thus far. Will continue to monitor closely. Serum sodium is 135 today. Willl discontinue IV fluids. 04/05/2019 Patient is sitting up and currently remains in the ICU being closely monitored. No acute overnight issues. Patient is awake and was recently just extubated with Dr. Syed and tolerating well thus far. Patient is currently on 5 L of oxygen via nasal cannula with oxygen saturations in the low 90s. Patient is responding appropriately to commands. Sitter is at the bedside for safety as the patient attempts to get out of bed at times. Awaiting to have a swallow eval done with speech possibly today or tomorrow as he is currently nothing by mouth. Repeat chest x-ray today shows stable findings and continues with some possible mild venous congestion. Patient will be given a dose of IV Lasix again. Patient is currently off IV fluids and will continue at this time. 04/06/2019 Patient is sitting up in currently remains in the ICU being closely monitored. Patient is currently requiring high flow oxygen via nasal cannula at 15 L. Pulmonary is following closely. Patient is also currently on Cleviprex for blood pressure control if he was having elevated blood pressures throughout the night and this morning. Patient is able to respond appropriately to simple commands but continues to not talk much. Patient is hard of hearing. Patient underwent a swallow eval and failed and will continue nothing by mouth with just ice chips at this time. Repeat chest x-ray shows no real improvement. Patient will be started on steroids and was given another dose of IV Lasix. 04/07/2019 Patient is sitting up in the chair and appears to be in no acute distress. Patient is currently being closely monitored in the ICU as he presently remains on a Cleviprex drip for tighter blood pressure control. Catapres patch was added. Patient currently remains nothing by mouth except small amounts of ice chips as he continues to fail swallow eval's. May need a modified barium swallow. Patient continues to receive daily doses of IV Lasix as repeat chest x-rays continue to show vascular congestion. Patient will be started on a dose of oral Lasix. Case management and social work are following and awaiting for guardianship that is expected to occur this Thursday. Will continue to monitor closely. 04/08/2019 Patient is sitting up in the chair and appears to be in no acute distress. Patient is currently being monitored in the ICU and awaiting a [facility] bed to become available for transfer. Patient is off the Cleviprex drip and blood pressure is more stabilized with a Catapres patch. Patient underwent a modified barium swallow and patient will be started on dysphagia 2 ground diet with thin liquids and no straws and will continue aspiration precautions and assistance with feeding. No aspiration noted on the swallow eval. Patient currently remains on high flow oxygen via nasal cannula and is now down to 9 L. Will continue to monitor closely. Possible guardianship this Thursday. Objective - Vital Signs Vital signs: Vital Signs Temp 98.1 F 04/08/19 13:00 Pulse 89 04/08/19 13:00 Resp 17 04/08/19 13:00 BP 132/98 04/08/19 13:00 Pulse Ox 95 04/08/19 13:00 Intake & Output 04/07/19 04/08/19 04/08/19 18:59 06:59 18:59 Intake Total 219 223.267 20 Output Total 1470 590 70 Balance -1251 -366.733 -50 Weight 98.7 kg 94.2 kg 94.2 kg Intake: IV 120 220 20 0.9 Normal Saline @ 10mls 120 120 20 /hr Piperacillin-Tazobactam 3 100 .375 gm In Sodium Chloride 0.9% 100 ml @ 25 mls/hr IVPB Q8HR [facility] Rx# :[id number] Intake, IV Titration 99 3.267 Amount Clevidipine Butyrate 25 99 3.267 mg In Empty Bag 1 bag @ 1 MG/HR 2 mls/hr IV .Q24H [facility] Rx#:[id number] Output: Urine 1470 590 70 Other: Voiding Method Indwelling Catheter Indwelling Catheter Indwelling Catheter ABP, PAP, CO, CI - Last Documented Arterial Blood Pressure 127/61 - Exam GENERAL: 63-year-old male, awake and alert and sitting up in the chair and responding to simple commands. Patient is currently on high flow oxygen via nasal cannula at 9 L HEENT: Pupils are round and equally reacting to light. EOMI. No scleral icterus. No conjunctival pallor. Normocephalic, atraumatic. No pharyngeal erythema. No thyromegaly. CARDIOVASCULAR: S1 and S2 present. No murmurs, rubs, or gallops. PULMONARY: Lung sounds diminished at the bases with a few scattered wheezes noted ABDOMEN: Soft, obese, nontender, nondistended, normoactive bowel sounds. No palpable organomegaly. MUSCULOSKELETAL: No joint swelling or deformity. EXTREMITIES: No cyanosis, clubbing, or pedal edema. NEUROLOGICAL: Alert and awake, cooperative SKIN: No rashes. Left index finger noted with scabs status post recent abscess and laceration, old dressing of left index finger was removed and wound was cleansed with no signs of redness, swelling, or drainage noted. - Labs CBC & Chem 7: 04/08/19 05:12 04/08/19 05:12 Labs: Abnormal Lab Results - Last 24 Hours (Table) 04/07/19 04/08/19 04/08/19 Range/Units 23:30 05:12 05:12 WBC 23.2 H (3.8-10.6) k/uL Neutrophils # (Manual) 12.53 H (1.3-7.7) k/uL Lymphocytes # (Manual) 9.28 H (1.0-4.8) k/uL Monocytes # (Manual) 1.39 H (0-1.0) k/uL Metamyelocytes # (Man) 0.23 H (0) k/uL BUN 35 H (9-20) mg/dL Glucose 111 H (74-99) mg/dL POC Glucose (mg/dL) 101 H (75-99) mg/dL 04/08/19 Range/Units 05:43 WBC (3.8-10.6) k/uL Neutrophils # (Manual) (1.3-7.7) k/uL Lymphocytes # (Manual) (1.0-4.8) k/uL Monocytes # (Manual) (0-1.0) k/uL Metamyelocytes # (Man) (0) k/uL BUN (9-20) mg/dL Glucose (74-99) mg/dL POC Glucose (mg/dL) 106 H (75-99) mg/dL Assessment and Plan Assessment: -Severe hyponatremia: Multifactorial there may be a component of psychogenic polydipsia, SIADH from medications as well as hypovolemia. 3% saline has been discontinued there is a component of hypervolemia because of which patient was started on IV fluids as mentioned above. -Acute hypoxic and hypercapnic respiratory failure syndrome with COPD exacerbation and may be a right lower lobe pneumonia and aspiration pneumonia because of which the patient is on Zosyn at this time. -Mediastinal lymphadenopathy which need to be followed as an outpatient once he is stable with repeat CAT scan. -Metabolic encephalopathy secondary to hyponatremia -COPD with acute exacerbation patient systemic steroids -Type 2 diabetes mellitus -Schizophrenia -Nicotine abuse *for above-mentioned chronic medical problems patient will be resumed on appropriate home medications whenever he can tolerate oral medications. Speech therapy was consulted because of his mental status to assess if he can actually swallow. May need a modified barium swallow eval Plan: Continue current medications, management, and symptomatic treatment. Multiple medical consultations following. Patient currently remains in the ICU and [facility] Patient is being maintained on high flow oxygen at 9 L via nasal cannula. Patient is off of Cleviprex and continuing on Catapres patch at this time. Will continue to monitor vital signs and labs closely. Patient was started on IV steroids and will be started on oral Lasix. Patient will start a dysphagia 2 ground diet with thin liquids and maintaining aspiration precautions as his modified barium swallow did not show any signs of aspiration. Patient needs supervision when eating as he still occasionally coughs and has a very weak cough. sodium today is 141. Patient may resume oral meds. Will repeat a.m. labs. Further recommendations to follow. Case management and social work are following as they are looking to obtain guardianship this Thursday for possible placement once patient is stabilized for discharge.
--- NOTE | 2019-04-08 17:53 | CT ---
EXAMINATION TYPE: CT brain wo con DATE OF EXAM: 04/08/2019 COMPARISON: 03/29/2019 HISTORY: CVA CT DLP: 1317 mGycm Automated exposure control for dose reduction was used. There is diffuse cerebral atrophy. There is no mass effect nor midline shift. There is no sign of int racranial hemorrhage. There is 2 cm subtle hypodense area in the white matter right internal capsule. This is at the genu. Calvarium is intact. There is extensive mucosal thickening in the ethmoid maxillary sphenoid sinuses. There is also extens meng opacification of the frontal sinuses. There is apparent osteotomy of the medial wall of the maxil juvenal sinuses. There is mixed attenuation of the mucosal thickening. IMPRESSION: There is probably lacunar infarct in genu of the right internal capsule. This could be new compared to recent exam. Severe pansinusitis.
[2019-04-09] MEDS: IPRATROPIUM-ALBUTEROL 3 ML NEB INHALATION SCH ×6 (01:10→19:41)
[2019-04-09] MEDS: INSULIN ASPART (NovoLOG) 100 UNIT/ML VIAL SQ SCH ×2 (05:13→12:51)
[2019-04-09] MEDS: predniSONE 20 MG TAB PO SCH (07:38)
[2019-04-09] MEDS: CARVEDILOL 6.25 MG TAB PO SCH ×2 (07:39→16:47)
[2019-04-09] MEDS: PIPERACILLIN-TAZOBACTAM 3.375 GM in SODIUM CHLORIDE 0.9% 100 ML IVPB SCH ×3 (07:39→23:39)
[2019-04-09] MEDS: FUROSEMIDE 20 MG TAB PO SCH (07:39)
[2019-04-09] MEDS: PANTOPRAZOLE 40 MG/10 ML VIAL IV SCH (07:43)
[2019-04-09] MEDS: ENOXAPARIN 40 MG/0.4 ML SYRINGE SQ SCH (07:48)
[2019-04-09] MEDS: BUDESONIDE 1 MG/2 ML NEBU INHALATION SCH ×2 (07:56→19:41)
[2019-04-09] MEDS: FORMOTEROL FUMARATE 20 MCG/2 ML NEBU INHALATION SCH ×2 (07:56→19:41)
[2019-04-09 08:26] LABS: HCT 41.1 % (39.0-53.0); HGB 13.4 gm/dL (13.0-17.5); Hypochromasia Slight; MCH 29.8 pg (25.0-35.0); MCHC 32.6 g/dL (31.0-37.0); MCV 91.4 fL (80.0-100.0); Mean Platelet Volume 7.2; Platelet Count 253 k/uL (150-450); WBC 18.7 k/uL (3.8-10.6)
[2019-04-09 08:30] LABS: African American GFR (CKD) >90 (>60 ml/min/1.73 sqM); Anion Gap 7 mmol/L; Blood Urea Nitrogen 27 mg/dL (9-20); Calcium 8.4 mg/dL (8.4-10.2); Carbon Dioxide 30 mmol/L (22-30); Chloride 100 mmol/L (98-107); Glucose 97 mg/dL (74-99); Non-African American GFR(CKD) >90 (>60 ml/min/1.73 sqM); Potassium 3.5 mmol/L (3.5-5.1); Sodium 137 mmol/L (137-145)
[2019-04-09 09:49] LABS: Anisocytosis (M) Present; Lymphocytes # (M) 7.67 k/uL (1.0-4.8); Monocytes # (M) 1.31 k/uL (0-1.0); Neutrophils # (M) 9.72 k/uL (1.3-7.7); Neutrophils % (M) 52 %; Nucleated Red Blood Cells 0 /100 WBC (0-0); Total Cells Counted 100
[2019-04-09 12:51] LABS: Glucose,Whole Blood 104 mg/dL (75-99)
--- NOTE | 2019-04-09 12:56 | P.PN ---
Subjective Progress Note Date: 04/09/19 Principal diagnosis: Hyponatremia with metabolic encephalopathy, acute hypercapnic/hypoxemic respiratory failure The patient is seen today 04/09/2019 in follow-up on the regular medical floor. He is awake and alert in no acute distress. His been weaned down to 6 L high flow nasal cannula. She's been afebrile. Hemodynamically stable. Sputum had been positive for Enterobacter cloacae. Blood culture reveals no growth. White count 18.7. Hemoglobin 13.4. Creatinine 0.68. He is continued on DuoNeb inhalations, Pulmicort and Perforomist inhalations, oral prednisone and antibiotics in the form of Zosyn. Objective - Vital Signs Vital signs: Vital Signs Temp 98 F 04/09/19 12:41 Pulse 67 04/09/19 12:41 Resp 16 04/09/19 12:41 BP 132/88 04/09/19 12:41 Pulse Ox 95 04/09/19 12:41 Intake & Output 04/08/19 04/09/19 04/09/19 18:59 06:59 18:59 Intake Total 20 1410 Output Total 70 420 Balance -50 990 Weight 94.2 kg 92.5 kg Intake: IV 20 100 0.9 Normal Saline @ 10mls 20 /hr Piperacillin-Tazobactam 3 100 .375 gm In Sodium Chloride 0.9% 100 ml @ 25 mls/hr IVPB Q8HR [facility] Rx# :[id number] Oral 1310 Output: Urine 70 420 Other: Voiding Method Indwelling Catheter Urinal # Voids 3 ABP, PAP, CO, CI - Last Documented Arterial Blood Pressure 127/61 - Exam GENERAL EXAM: Alert, 63-year-old male patient, comfortable, on 6 L of oxygen, in no apparent distress. HEAD: Normocephalic/atraumatic. EYES: Normal reaction of pupils, equal size. Conjunctiva pink, sclera white. NOSE: Clear with pink turbinates. THROAT: No erythema or exudates. NECK: No masses, no JVD, no thyroid enlargement, no adenopathy. CHEST: No chest wall deformity. Symmetrical expansion. LUNGS: Equal air entry with crackles in the left lung base. CVS: Regular rate and rhythm, normal S1 and S2, no gallops, no murmurs, no rubs ABDOMEN: Soft, nontender. No hepatosplenomegaly, normal bowel sounds, no guarding or rigidity. EXTREMITIES: No clubbing, no edema, no cyanosis, 2+ pulses and upper and lower extremities. MUSCULOSKELETAL: Muscle strength and tone normal. SPINE: No scoliosis or deformity SKIN: No rashes CENTRAL NERVOUS SYSTEM: Alert and oriented -1. No focal deficits, tone is normal in all 4 extremities. - Labs CBC & Chem 7: 04/09/19 07:28 04/09/19 07:28 Labs: Abnormal Lab Results - Last 24 Hours (Table) 04/09/19 04/09/19 Range/Units 07:28 07:28 WBC 18.7 H (3.8-10.6) k/uL Neutrophils # (Manual) 9.72 H (1.3-7.7) k/uL Lymphocytes # (Manual) 7.67 H (1.0-4.8) k/uL Monocytes # (Manual) 1.31 H (0-1.0) k/uL BUN 27 H (9-20) mg/dL Assessment and Plan Assessment: #1. Acute hypoxic and hypercapnic respiratory failure secondary to acute exacerbation of COPD and bibasilar pneumonia related to Enterobacter cloacae #2. Severe hyponatremia, possible SIADH, could be related to psychiatric medications, improved, responded well to treatment #3. Acute mental status changes, acute metabolic encephalopathy secondary to h yponatremia #4. History of type 2 diabetes mellitus #5. History of schizophrenia #6. History of nicotine dependence syndrome #7. Possible right lower lobe aspiration pneumonia #8. Hypertension Plan: The patient was seen and evaluated by Dr. Syed. He is currently stable from the pulmonary standpoint. We'll continue the current treatment plan. Continue to titrate down the FiO2 as tolerated. We'll continue to follow. I, the cosigning physician, performed a history & physical examination of the patient. Lungs sounds with crackles in left lung base. Maintaining good O2 saturations in the 90s on 6 L high flow nasal cannula. I discussed the assessment and plan of care with my nurse practitioner, Sandra Gagnon. I attest to the above note as dictated by her.
[2019-04-09 15:12] LABS: Cholesterol 222 mg/dL (<200); HDL Cholesterol 20 mg/dL (40-60); LDL Cholesterol,Calculated 179 mg/dL (0-99); Triglycerides 116 mg/dL (<150)
--- NOTE | 2019-04-09 16:27 | P.CNNES ---
History of Present Illness Consult date: 04/09/19 Reason for Consult: right facial droop Chief complaint: right facial droop History of Present Illness: The patient is a 63-year-old male who is seen in neurologic consultation on April 09, 2019, via teleneurology. Patient has been in the hospital for several days now. He was intubated for 5 days. He initially was quite lethargic and was intubated to protect his airway. Neurology is asked to see the patient because of an episode of right facial drooping. It is reported that at approximately 4:30 PM April 08, 2019, patient developed right facial drooping and right ptosis. A code stroke was called. This was then canceled, because it was felt that this was the patient's baseline. History is obtained from the nurse at the bedside and the chart, as the patient is unable to provide any history. Patient was reportedly admitted to the hospital because of lethargy, mental status changes and confusion. Patient was found to be severely hyponatremic. He was also hypovolemic. In addition, patient was thought to have aspiration pneumonia. These medical issues are being treated. Patient was subsequently extubated. Review of Systems ROS unobtainable: due to mental status Past Medical History Past Medical History: Diabetes Mellitus, Hypertension History of Any Multi-Drug Resistant Organisms: None Reported Past Surgical History: Orthopedic Surgery Additional Past Surgical History / Comment(s): sinus sx Past Anesthesia/Blood Transfusion Reactions: No Reported Reaction Past Psychological History: Schizophrenia Smoking Status: Current every day smoker Past Alcohol Use History: None Reported Past Drug Use History: None Reported Medications and Allergies Home Medications Medication Instructions Recorded Confirmed Type FLUoxetine HCL [PROzac] 20 mg PO DAILY #30 cap 07/10/16 03/29/19 Rx risperiDONE 3 mg PO BID #60 tablet 07/10/16 03/29/19 Rx Acetaminophen Tab [Tylenol] 650 mg PO Q8H PRN 03/15/19 03/29/19 History Carvedilol [Coreg] 6.25 mg PO AC-BID #60 tab 03/17/19 03/29/19 Rx Nicotine 21Mg/24Hr Patch [Habitrol] 1 patch TRANSDERM DAILY #30 patch 03/17/19 03/29/19 Rx Allergies Allergy/AdvReac Type Severity Reaction Status Date / Time Sulfa (Sulfonamide Allergy Rash/Hives Verified 01/14/20 12:35 Antibiotics) Physical Examination - Vital Signs Vital Signs: Vital Signs Temp Pulse Pulse Pulse Resp BP Pulse Ox 04/09/19 12:41 98 F 67 16 132/88 95 04/09/19 11:18 80 04/09/19 11:07 80 04/09/19 08:23 84 04/09/19 08:13 80 04/09/19 08:12 80 04/09/19 07:57 80 04/09/19 05:00 97.7 F 72 20 120/79 100 04/09/19 01:20 80 04/09/19 01:11 76 04/08/19 22:42 16 04/08/19 21:29 98.2 F 73 16 128/78 98 04/08/19 20:42 74 04/08/19 20:33 72 04/08/19 20:32 72 04/08/19 20:25 73 96 04/08/19 16:54 97.4 F L 88 20 120/80 93 L 04/08/19 16:47 101 H 101/61 95 04/08/19 16:42 94 L 04/08/19 16:41 92 Intake and Output 04/08/19 04/09/19 04/09/19 22:59 06:59 14:59 Intake Total 820 590 Output Total 420 Balance 400 590 Intake: IV 100 Piperacillin-Tazobactam 3 100 .375 gm In Sodium Chloride 0.9% 100 ml @ 25 mls/hr IVPB Q8HR [facility] Rx# :[id number] Oral 720 590 Output: Urine 420 Other: Voiding Method Urinal # Voids 3 Weight 92.5 kg Gen.: Patient is somewhat askew in the bed. He is in no acute distress. HEENT: Head is atraumatic, normocephalic. Fundus not visualized. There is no scleral icterus. Mucous membranes are moist. Heart: Regular rate and rhythm Extremities: Without edema Neurological examination Mental status: Patient is awake and alert. He is oriented to his name, location and the current year. He is extremely hard of hearing. Cranial nerves: Pupils are equal, round and reactive to light. Visual mccartney are full to confrontation. Extraocular muscles are intact. There is no nystagmus. Facial sensations intact. There is flattening of the right nasolabial fold. Hearing is diminished. Uvula and palate are midline. Shoulder shrug is symmetric. Tongue protrudes midline. Motor: Strength is diminished throughout. There is no lateralizing deficit. Photographic Colorist strength is equal. Sensation: Grossly intact to light touch Coordination: Finger to nose testing is intact. There is no dysmetria. Deep tendon reflexes: Diminished throughout Gait: Not assessed Results - Laboratory Findings CBC and BMP: 04/09/19 07:28 04/09/19 07:28 Abnormal Lab Findings: Abnormal Labs 03/29/19 03/29/19 03/29/19 12:37 12:37 13:14 WBC 31.1 H RBC Hgb Hct MCHC Neutrophils # 21.2 H Neutrophils # (Manual) Lymphocytes # 7.1 H Lymphocytes # (Manual) Monocytes # 1.5 H Monocytes # (Manual) Basophils # 0.3 H Metamyelocytes # (Man) Myelocytes # (Manual) ABG pH ABG pCO2 49 H ABG pO2 ABG HCO3 29 H ABG Total CO2 31 H ABG O2 Saturation Sodium 111 L* Potassium 5.3 H Chloride 74 L* Carbon Dioxide BUN 6 L Creatinine 0.44 L Glucose 113 H POC Glucose (mg/dL) Osmolality Calcium 8.3 L Alkaline Phosphatase 135 H Total Protein Albumin Urine Glucose (UA) Urine Ketones 03/29/19 03/29/19 03/29/19 14:20 17:23 19:15 WBC RBC Hgb Hct MCHC Neutrophils # Neutrophils # (Manual) Lymphocytes # Lymphocytes # (Manual) Monocytes # Monocytes # (Manual) Basophils # Metamyelocytes # (Man) Myelocytes # (Manual) ABG pH ABG pCO2 ABG pO2 ABG HCO3 ABG Total CO2 ABG O2 Saturation Sodium 110 L* Potassium Chloride Carbon Dioxide BUN Creatinine Glucose POC Glucose (mg/dL) 117 H Osmolality Calcium Alkaline Phosphatase Total Protein Albumin Urine Glucose (UA) Trace H Urine Ketones Trace H 03/29/19 03/30/19 03/30/19 21:36 00:11 05:01 WBC RBC Hgb Hct MCHC Neutrophils # Neutrophils # (Manual) Lymphocytes # Lymphocytes # (Manual) Monocytes # Monocytes # (Manual) Basophils # Metamyelocytes # (Man) Myelocytes # (Manual) ABG pH ABG pCO2 ABG pO2 ABG HCO3 ABG Total CO2 ABG O2 Saturation Sodium 113 L* 113 L* 113 L* Potassium Chloride 80 L Carbon Dioxide BUN 7 L Creatinine 0.47 L Glucose 101 H POC Glucose (mg/dL) Osmolality Calcium 7.9 L Alkaline Phosphatase Total Protein 6.0 L Albumin 3.3 L Urine Glucose (UA) Urine Ketones 03/30/19 03/30/19 03/30/19 05:01 05:01 05:01 WBC 25.6 H RBC Hgb Hct 38.9 L MCHC Neutrophils # Neutrophils # (Manual) 15.10 H Lymphocytes # Lymphocytes # (Manual) 8.70 H Monocytes # Monocytes # (Manual) 1.79 H Basophils # Metamyelocytes # (Man) Myelocytes # (Manual) ABG pH ABG pCO2 ABG pO2 ABG HCO3 ABG Total CO2 ABG O2 Saturation Sodium 114 L* Potassium Chloride Carbon Dioxide BUN Creatinine Glucose POC Glucose (mg/dL) Osmolality 235 L* Calcium Alkaline Phosphatase Total Protein Albumin Urine Glucose (UA) Urine Ketones 03/30/19 03/30/19 03/30/19 06:39 09:30 13:43 WBC RBC Hgb Hct MCHC Neutrophils # Neutrophils # (Manual) Lymphocytes # Lymphocytes # (Manual) Monocytes # Monocytes # (Manual) Basophils # Metamyelocytes # (Man) Myelocytes # (Manual) ABG pH ABG pCO2 ABG pO2 ABG HCO3 ABG Total CO2 ABG O2 Saturation Sodium 117 L* 116 L* Potassium Chloride Carbon Dioxide BUN Creatinine Glucose POC Glucose (mg/dL) 101 H Osmolality Calcium Alkaline Phosphatase Total Protein Albumin Urine Glucose (UA) Urine Ketones 03/30/19 03/30/19 03/30/19 16:32 16:58 21:49 WBC RBC Hgb Hct MCHC Neutrophils # Neutrophils # (Manual) Lymphocytes # Lymphocytes # (Manual) Monocytes # Monocytes # (Manual) Basophils # Metamyelocytes # (Man) Myelocytes # (Manual) ABG pH ABG pCO2 ABG pO2 ABG HCO3 ABG Total CO2 ABG O2 Saturation Sodium 116 L* 117 L* Potassium Chloride Carbon Dioxide BUN Creatinine Glucose POC Glucose (mg/dL) 106 H Osmolality Calcium Alkaline Phosphatase Total Protein Albumin Urine Glucose (UA) Urine Ketones 03/31/19 03/31/19 03/31/19 00:01 02:42 04:53 WBC RBC Hgb Hct MCHC Neutrophils # Neutrophils # (Manual) Lymphocytes # Lymphocytes # (Manual) Monocytes # Monocytes # (Manual) Basophils # Metamyelocytes # (Man) Myelocytes # (Manual) ABG pH ABG pCO2 ABG pO2 ABG HCO3 ABG Total CO2 ABG O2 Saturation Sodium 118 L* 119 L* Potassium 5.2 H Chloride 81 L Carbon Dioxide 31 H BUN Creatinine 0.57 L Glucose POC Glucose (mg/dL) 104 H Osmolality Calcium 8.1 L Alkaline Phosphatase Total Protein Albumin Urine Glucose (UA) Urine Ketones 03/31/19 03/31/19 03/31/19 04:53 08:30 11:18 WBC 20.1 H RBC Hgb Hct 38.9 L MCHC Neutrophils # Neutrophils # (Manual) 12.80 H Lymphocytes # Lymphocytes # (Manual) 5.43 H Monocytes # Monocytes # (Manual) 1.81 H Basophils # Metamyelocytes # (Man) Myelocytes # (Manual) 0.20 H ABG pH ABG pCO2 ABG pO2 ABG HCO3 ABG Total CO2 ABG O2 Saturation Sodium 120 L 121 L Potassium Chloride Carbon Dioxide BUN Creatinine Glucose POC Glucose (mg/dL) Osmolality Calcium Alkaline Phosphatase Total Protein Albumin Urine Glucose (UA) Urine Ketones 03/31/19 03/31/19 03/31/19 18:00 18:23 18:25 WBC RBC Hgb Hct MCHC Neutrophils # Neutrophils # (Manual) Lymphocytes # Lymphocytes # (Manual) Monocytes # Monocytes # (Manual) Basophils # Metamyelocytes # (Man) Myelocytes # (Manual) ABG pH 7.24 L ABG pCO2 73 H* ABG pO2 384 H ABG HCO3 31 H ABG Total CO2 33 H ABG O2 Saturation 99.8 H Sodium 124 L Potassium Chloride Carbon Dioxide BUN Creatinine Glucose POC Glucose (mg/dL) 117 H Osmolality Calcium Alkaline Phosphatase Total Protein Albumin Urine Glucose (UA) Urine Ketones 03/31/19 04/01/19 04/01/19 23:00 00:27 05:30 WBC 17.3 H RBC Hgb 12.5 L Hct 38.0 L MCHC Neutrophils # 12.7 H Neutrophils # (Manual) Lymphocytes # Lymphocytes # (Manual) Monocytes # 1.1 H Monocytes # (Manual) Basophils # Metamyelocytes # (Man) Myelocytes # (Manual) ABG pH ABG pCO2 ABG pO2 ABG HCO3 ABG Total CO2 ABG O2 Saturation Sodium 124 L Potassium Chloride Carbon Dioxide BUN Creatinine Glucose POC Glucose (mg/dL) 101 H Osmolality Calcium Alkaline Phosphatase Total Protein Albumin Urine Glucose (UA) Urine Ketones 04/01/19 04/01/19 04/01/19 05:30 06:18 07:06 WBC RBC Hgb Hct MCHC Neutrophils # Neutrophils # (Manual) Lymphocytes # Lymphocytes # (Manual) Monocytes # Monocytes # (Manual) Basophils # Metamyelocytes # (Man) Myelocytes # (Manual) ABG pH 7.47 H ABG pCO2 ABG pO2 ABG HCO3 31 H ABG Total CO2 33 H ABG O2 Saturation 98.7 H Sodium 126 L Potassium Chloride 89 L Carbon Dioxide BUN Creatinine Glucose 107 H POC Glucose (mg/dL) 109 H Osmolality Calcium Alkaline Phosphatase Total Protein Albumin Urine Glucose (UA) Urine Ketones 04/01/19 04/01/19 04/01/19 10:35 12:30 18:10 WBC RBC Hgb Hct MCHC Neutrophils # Neutrophils # (Manual) Lymphocytes # Lymphocytes # (Manual) Monocytes # Monocytes # (Manual) Basophils # Metamyelocytes # (Man) Myelocytes # (Manual) ABG pH ABG pCO2 ABG pO2 ABG HCO3 ABG Total CO2 ABG O2 Saturation Sodium 127 L Potassium Chloride Carbon Dioxide BUN Creatinine Glucose POC Glucose (mg/dL) 116 H 119 H Osmolality Calcium Alkaline Phosphatase Total Protein Albumin Urine Glucose (UA) Urine Ketones 04/01/19 04/01/19 04/02/19 18:20 23:57 04:15 WBC 17.5 H RBC 4.19 L Hgb 12.3 L Hct 37.0 L MCHC Neutrophils # 11.7 H Neutrophils # (Manual) Lymphocytes # Lymphocytes # (Manual) Monocytes # Monocytes # (Manual) Basophils # 0.3 H Metamyelocytes # (Man) Myelocytes # (Manual) ABG pH ABG pCO2 ABG pO2 ABG HCO3 ABG Total CO2 ABG O2 Saturation Sodium 128 L Potassium Chloride Carbon Dioxide BUN Creatinine Glucose POC Glucose (mg/dL) 121 H Osmolality Calcium Alkaline Phosphatase Total Protein Albumin Urine Glucose (UA) Urine Ketones 04/02/19 04/02/19 04/02/19 04:15 05:48 08:32 WBC RBC Hgb Hct MCHC Neutrophils # Neutrophils # (Manual) Lymphocytes # Lymphocytes # (Manual) Monocytes # Monocytes # (Manual) Basophils # Metamyelocytes # (Man) Myelocytes # (Manual) ABG pH ABG pCO2 55 H ABG pO2 74 L ABG HCO3 35 H ABG Total CO2 37 H ABG O2 Saturation Sodium 130 L Potassium Chloride 91 L Carbon Dioxide 35 H BUN Creatinine 0.55 L Glucose 137 H POC Glucose (mg/dL) 141 H Osmolality Calcium 8.2 L Alkaline Phosphatase Total Protein Albumin Urine Glucose (UA) Urine Ketones 04/02/19 04/02/19 04/02/19 11:33 17:27 23:25 WBC RBC Hgb Hct MCHC Neutrophils # Neutrophils # (Manual) Lymphocytes # Lymphocytes # (Manual) Monocytes # Monocytes # (Manual) Basophils # Metamyelocytes # (Man) Myelocytes # (Manual) ABG pH ABG pCO2 ABG pO2 ABG HCO3 ABG Total CO2 ABG O2 Saturation Sodium Potassium Chloride Carbon Dioxide BUN Creatinine Glucose POC Glucose (mg/dL) 133 H 127 H 123 H Osmolality Calcium Alkaline Phosphatase Total Protein Albumin Urine Glucose (UA) Urine Ketones 04/03/19 04/03/19 04/03/19 04:15 04:15 06:00 WBC 16.8 H RBC Hgb 12.6 L Hct MCHC Neutrophils # 10.6 H Neutrophils # (Manual) Lymphocytes # Lymphocytes # (Manual) Monocytes # Monocytes # (Manual) Basophils # 0.4 H Metamyelocytes # (Man) Myelocytes # (Manual) ABG pH ABG pCO2 ABG pO2 ABG HCO3 ABG Total CO2 ABG O2 Saturation Sodium 134 L Potassium Chloride 95 L Carbon Dioxide 37 H BUN Creatinine 0.56 L Glucose 132 H POC Glucose (mg/dL) 111 H Osmolality Calcium 8.2 L Alkaline Phosphatase Total Protein Albumin Urine Glucose (UA) Urine Ketones 04/03/19 04/03/19 04/03/19 07:55 11:46 23:45 WBC RBC Hgb Hct MCHC Neutrophils # Neutrophils # (Manual) Lymphocytes # Lymphocytes # (Manual) Monocytes # Monocytes # (Manual) Basophils # Metamyelocytes # (Man) Myelocytes # (Manual) ABG pH ABG pCO2 57 H ABG pO2 111 H ABG HCO3 37 H ABG Total CO2 39 H ABG O2 Saturation 98.5 H Sodium Potassium Chloride Carbon Dioxide BUN Creatinine Glucose POC Glucose (mg/dL) 114 H 101 H Osmolality Calcium Alkaline Phosphatase Total Protein Albumin Urine Glucose (UA) Urine Ketones 04/04/19 04/04/19 04/04/19 04:26 04:40 04:40 WBC 18.4 H RBC 4.18 L Hgb 12.3 L Hct 38.3 L MCHC Neutrophils # Neutrophils # (Manual) 13.00 H Lymphocytes # Lymphocytes # (Manual) Monocytes # Monocytes # (Manual) 1.10 H Basophils # Metamyelocytes # (Man) Myelocytes # (Manual) ABG pH ABG pCO2 53 H ABG pO2 ABG HCO3 36 H ABG Total CO2 38 H ABG O2 Saturation 97.3 H Sodium 135 L Potassium Chloride 97 L Carbon Dioxide 34 H BUN Creatinine 0.57 L Glucose 115 H POC Glucose (mg/dL) Osmolality Calcium 7.8 L Alkaline Phosphatase Total Protein Albumin Urine Glucose (UA) Urine Ketones 04/04/19 04/04/19 04/04/19 06:03 10:45 18:15 WBC RBC Hgb Hct MCHC Neutrophils # Neutrophils # (Manual) Lymphocytes # Lymphocytes # (Manual) Monocytes # Monocytes # (Manual) Basophils # Metamyelocytes # (Man) Myelocytes # (Manual) ABG pH ABG pCO2 63 H ABG pO2 ABG HCO3 36 H ABG Total CO2 38 H ABG O2 Saturation Sodium Potassium Chloride Carbon Dioxide BUN Creatinine Glucose POC Glucose (mg/dL) 111 H 113 H Osmolality Calcium Alkaline Phosphatase Total Protein Albumin Urine Glucose (UA) Urine Ketones 04/04/19 04/05/19 04/05/19 23:18 04:20 04:20 WBC 14.8 H RBC 4.03 L Hgb 11.7 L Hct 37.0 L MCHC Neutrophils # Neutrophils # (Manual) Lymphocytes # Lymphocytes # (Manual) Monocytes # Monocytes # (Manual) Basophils # Metamyelocytes # (Man) Myelocytes # (Manual) ABG pH ABG pCO2 ABG pO2 ABG HCO3 ABG Total CO2 ABG O2 Saturation Sodium Potassium Chloride 96 L Carbon Dioxide 37 H BUN 22 H Creatinine 0.61 L Glucose 144 H POC Glucose (mg/dL) 153 H Osmolality Calcium 8.2 L Alkaline Phosphatase Total Protein Albumin Urine Glucose (UA) Urine Ketones 04/05/19 04/05/19 04/05/19 04:37 05:36 09:26 WBC RBC Hgb Hct MCHC Neutrophils # Neutrophils # (Manual) Lymphocytes # Lymphocytes # (Manual) Monocytes # Monocytes # (Manual) Basophils # Metamyelocytes # (Man) Myelocytes # (Manual) ABG pH ABG pCO2 55 H 59 H ABG pO2 71 L ABG HCO3 38 H 37 H ABG Total CO2 39 H 39 H ABG O2 Saturation 97.6 H Sodium Potassium Chloride Carbon Dioxide BUN Creatinine Glucose POC Glucose (mg/dL) 144 H Osmolality Calcium Alkaline Phosphatase Total Protein Albumin Urine Glucose (UA) Urine Ketones 04/05/19 04/05/19 04/06/19 11:40 23:44 04:15 WBC 18.8 H RBC Hgb 12.2 L Hct MCHC 30.9 L Neutrophils # Neutrophils # (Manual) Lymphocytes # Lymphocytes # (Manual) Monocytes # Monocytes # (Manual) Basophils # Metamyelocytes # (Man) Myelocytes # (Manual) ABG pH ABG pCO2 ABG pO2 ABG HCO3 ABG Total CO2 ABG O2 Saturation Sodium Potassium Chloride Carbon Dioxide BUN Creatinine Glucose POC Glucose (mg/dL) 119 H 104 H Osmolality Calcium Alkaline Phosphatase Total Protein Albumin Urine Glucose (UA) Urine Ketones 04/06/19 04/06/19 04/06/19 05:31 05:32 12:01 WBC RBC Hgb Hct MCHC Neutrophils # Neutrophils # (Manual) Lymphocytes # Lymphocytes # (Manual) Monocytes # Monocytes # (Manual) Basophils # Metamyelocytes # (Man) Myelocytes # (Manual) ABG pH ABG pCO2 ABG pO2 ABG HCO3 ABG Total CO2 ABG O2 Saturation Sodium Potassium Chloride Carbon Dioxide 37 H BUN 27 H Creatinine 0.60 L Glucose 113 H POC Glucose (mg/dL) 115 H 104 H Osmolality Calcium Alkaline Phosphatase Total Protein Albumin Urine Glucose (UA) Urine Ketones 04/07/19 04/07/19 04/07/19 05:38 05:38 05:40 WBC 18.8 H RBC Hgb Hct MCHC Neutrophils # Neutrophils # (Manual) Lymphocytes # Lymphocytes # (Manual) Monocytes # Monocytes # (Manual) Basophils # Metamyelocytes # (Man) Myelocytes # (Manual) ABG pH ABG pCO2 ABG pO2 ABG HCO3 ABG Total CO2 ABG O2 Saturation Sodium Potassium Chloride Carbon Dioxide 33 H BUN 27 H Creatinine 0.57 L Glucose 113 H POC Glucose (mg/dL) 111 H Osmolality Calcium Alkaline Phosphatase Total Protein Albumin Urine Glucose (UA) Urine Ketones 04/07/19 04/07/19 04/08/19 11:38 23:30 05:12 WBC 23.2 H RBC Hgb Hct MCHC Neutrophils # Neutrophils # (Manual) 12.53 H Lymphocytes # Lymphocytes # (Manual) 9.28 H Monocytes # Monocytes # (Manual) 1.39 H Basophils # Metamyelocytes # (Man) 0.23 H Myelocytes # (Manual) ABG pH ABG pCO2 ABG pO2 ABG HCO3 ABG Total CO2 ABG O2 Saturation Sodium Potassium Chloride Carbon Dioxide BUN Creatinine Glucose POC Glucose (mg/dL) 106 H 101 H Osmolality Calcium Alkaline Phosphatase Total Protein Albumin Urine Glucose (UA) Urine Ketones 04/08/19 04/08/19 04/09/19 05:12 05:43 07:28 WBC 18.7 H RBC Hgb Hct MCHC Neutrophils # Neutrophils # (Manual) 9.72 H Lymphocytes # Lymphocytes # (Manual) 7.67 H Monocytes # Monocytes # (Manual) 1.31 H Basophils # Metamyelocytes # (Man) Myelocytes # (Manual) ABG pH ABG pCO2 ABG pO2 ABG HCO3 ABG Total CO2 ABG O2 Saturation Sodium Potassium Chloride Carbon Dioxide BUN 35 H Creatinine Glucose 111 H POC Glucose (mg/dL) 106 H Osmolality Calcium Alkaline Phosphatase Total Protein Albumin Urine Glucose (UA) Urine Ketones 04/09/19 04/09/19 07:28 12:49 WBC RBC Hgb Hct MCHC Neutrophils # Neutrophils # (Manual) Lymphocytes # Lymphocytes # (Manual) Monocytes # Monocytes # (Manual) Basophils # Metamyelocytes # (Man) Myelocytes # (Manual) ABG pH ABG pCO2 ABG pO2 ABG HCO3 ABG Total CO2 ABG O2 Saturation Sodium Potassium Chloride Carbon Dioxide BUN 27 H Creatinine Glucose POC Glucose (mg/dL) 104 H Osmolality Calcium Alkaline Phosphatase Total Protein Albumin Urine Glucose (UA) Urine Ketones Assessment and Plan Assessment: Impressions: 1. Right facial weakness-possible left lacunar infarct 2. Metabolic encephalopathy-improving Plan: Recommendations: 1. CT scan images are reviewed. There are no obvious signs of cerebral infarct. 2. MRI of brain 3. TIA/stroke workup: 2-D echocardiogram, carotid Doppler, lipid panel, hemoglobin A1c 4. Physical therapy and occupational therapy evaluation 5. Patient should be started on a statin 6. Aspirin 81 mg should be started Time with Patient: Greater than 30 (spent 40 minutes with patient via teleneurology)
[2019-04-09] MEDS: ASPIRIN 325 MG TAB PO SCH (16:48)
--- NOTE | 2019-04-09 17:12 | US ---
EXAMINATION TYPE: US carotid duplex BILAT DATE OF EXAM: 04/09/2019 COMPARISON: NONE CLINICAL HISTORY: Acute CVA. Patient does not respond to questioning. EXAM MEASUREMENTS: LIMITED ASSESSMENT OF LEFT CCA ONLY DUE TO CENTRAL LINES WITHIN RIGHT IJV. LARGE BANDAGE COVERING M ULTIPLE LINES ON THE RIGHT DID NOT ALOW FOR ANY IMAGING. LEFT: Peak Systolic Velocity (PSV) cm/sec ----- Left CCA: 60.6 ----- Left ICA: 65.7 ----- Left ECA: 95.1 ICA/CCA ratio: 1.0 LEFT: End Diastole cm/sec ----- Left CCA: 14.1 ----- Left ICA: 23.2 ----- Left ECA: 12.7 VERTEBRALS (direction of flow): Left Vertebral: Antegrade Rhythm: Normal Mild homogeneous plaque with no significant stenosis. IMPRESSION: The images and measurements suggest less than 25% stenosis in left internal carotid michele nakia. There is antegrade flow in the left vertebral artery. The right side was not evaluated due to bandages. Criteria for Assigning % of Stenosis / Diameter reduction (Estimation based on the indirect measurements of the internal carotid artery velocities (ICA PSV). 1. Normal (no stenosis)=ICA PSV < 125 cm/s: ratio < 2.0: ICA EDV<40 cm/s. 2. Less than 50% stenosis=ICA PSV < 125 cm/s: ratio < 2.0: ICA EDV<40 cm/s. 3. 50 to 69% stenosis=ICA PSV of 125 to 230 cm/s: ration 2.0 ? 4.0: ICA EDV 40-100 cm/s. 4. Greater than 70% stenosis to near occlusion= ICA PSV > 230 cm/s: ratio > 4.0: ICA EDV > 100 cm/s. 5. Near occlusion= ICA PSV velocities may be low or undetectable: variable ratio and ICA EDV. 6. Total occlusion=unable to detect flow.
[2019-04-09] MEDS: ATORVASTATIN 40 MG TAB PO SCH (20:27)
--- NOTE | 2019-04-09 22:12 | P.PN ---
Subjective Progress Note Date: 04/09/19 Principal diagnosis: Acute hypoxic and hypercapnic respiratory failure syndrome with COPD exacerbation Acute CVA with lacunar infarct. Currently back to baseline. 63-year-old male with known history of hypertension schizophrenia came in completely confused, altered mental status. patient is unable to provide any history to me patient as he is excessively drowsy but able to wake up with verbal stimuli. But unable to provide any history. Patient is found to be severely hyponatremic also found to have aspiration pneumonia. Patient does have significant leukocytosis. Patient in the past was treated for hypovolemic as was hypovolemic hyponatremia. Patient serum sodium is extremely low at 113 on 3% saline to 117. Nephrology is following the patient I did order urine o smolality, serum osmolality urine random sodium urine didn't random creatinine urinary uric acid although these labs will not be reliable because as patient is already on saline now. 03/31/2019 Patient is currently in the ICU being closely monitored with a patient safety tech at the bedside. Patient continues to be confused and quite lethargic. Per sitter, patient occasionally tries to get up out of the bed but is not coherent as to what he is doing. Patient continues to fall asleep when talking with the patient but is arousable to voice. Current sodium is 121. Nephrology is following. White blood count has also improved slightly and is trending down and is currently 20.1. Today's chest x-ray shows possible underlying mild pulmonary vascular congestion with the right hilar masslike prominence and persistent right basilar obesity. 04/01/2019 Patient currently remains in the ICU and is being closely monitored and patient was intubated last night as he continued to deteriorate and developed hypoxic and hypercapnic respiratory failure. Patient was very lethargic and unarousable and patient was intubated with Dr. Miranda. Currently patient is sedated and seems to be much more comfortable. Chest x-ray today shows some improvement of the right lower lobe pneumonia. Patient's sodium is currently 126 and 3% normal saline has been discontinued. Nephrology is following. Sputum cultures thus far showing gram-negative bacilli and patient is currently on Unasyn and will continue at this time. 04/02/2019 Patient remains intubated patient remains hypercapnic sick and hypercapnic because of which the activation was not attempted today. Patient remains on pressor support patient is on minimal vent settings at this time patient on 50 mL of normal saline as it was believed that patient has uremic hyponatremia improved with the 3% saline and now patient has some metabolic alkalosis partly because of the respiratory compensation and the there may be a competent of the contraction alkalosis. His serum sodium is 130on admission serum sodium is 114. 04/03/2019 Patient's serum sodium did improve patient remains intubated patient will be on sedation vacation today no plans on weaning trial today as per pulmonology. 04/04/2019 Patient is sitting up and appears to be in no acute distress. Patient is currently being closely monitored in the ICU and will continue at this time. Patient remains ventilated and undergoing trial breathing and not tolerating well at this time. Patient will continue on the vent at this time. Pulmonary is following closely. Sputum culture results have resulted with enterobacter cloacae and IV antibiotics and been adjusted to Zosyn and will continue at this time. Patient remains on tube feedings and tolerating well thus far. Will con tinue to monitor closely. Serum sodium is 135 today. Willl discontinue IV fluids. 04/05/2019 Patient is sitting up and currently remains in the ICU being closely monitored. No acute overnight issues. Patient is awake and was recently just extubated with Dr. Syed and tolerating well thus far. Patient is currently on 5 L of oxygen via nasal cannula with oxygen saturations in the low 90s. Patient is responding appropriately to commands. Sitter is at the bedside for safety as the patient attempts to get out of bed at times. Awaiting to have a swallow eval done with speech possibly today or tomorrow as he is currently nothing by mouth. Repeat chest x-ray today shows stable findings and continues with some possible mild venous congestion. Patient will be given a dose of IV Lasix agai n. Patient is currently off IV fluids and will continue at this time. 04/06/2019 Patient is sitting up in currently remains in the ICU being closely monitored. Patient is currently requiring high flow oxygen via nasal cannula at 15 L. Pulmonary is following closely. Patient is also currently on Cleviprex for blood pressure control if he was having elevated blood pressures throughout the night and this morning. Patient is able to respond appropriately to simple commands but continues to not talk much. Patient is hard of hearing. Patient underwent a swallow eval and failed and will continue nothing by mouth with just ice chips at this time. Repeat chest x-ray shows no real improvement. Patient will be started on steroids and was given another dose of IV Lasix. 04/07/2019 Patient is sitting up in the chair and appears to be in no acute distress. Patient is currently being closely monitored in the ICU as he presently remains on a Cleviprex drip for tighter blood pressure control. Catapres patch was added. Patient currently remains nothing by mouth except small amounts of ice chips as he continues to fail swallow eval's. May need a modified barium swallow. Patient continues to receive daily doses of IV Lasix as repeat chest x-rays continue to show vascular congestion. Patient will be started on a dose of oral Lasix. Case management and social work are following and awaiting for guardianship that is expected to occur this Thursday. Will continue to monitor closely. 04/08/2019 Patient is sitting up in the chair and appears to be in no acute distress. Patient is currently being monitored in the ICU and awaiting a [facility] bed to become available for transfer. Patient is off the Cleviprex drip and blood pressure is more stabilized with a Catapres patch. Patient underwent a modified barium swallow and patient will be started on dysphagia 2 ground diet with thin liquids and no straws and will continue aspiration precautions and assistance with feeding. No aspiration noted on the swallow eval. Patient currently remains on high flow oxygen via nasal cannula and is now down to 9 L. Will continue to monitor closely. Possible guardianship this Thursday. 04/09/2019 Patient is currently awake alert. No acute distress. Currently saturating at 90% on 6 L high flow oxygen with another cannula. Patient is being continued on DuoNeb's, Pulmicort, Perforomist and oral prednisone and antibiotics in the form of Zosyn. Patient is being continued on dysphagia level II diet and aspiration precautions. Patient had right facial droop, strokelike symptoms. Patient underwent CT head showed possible left-sided lacunar infarct. Patient was seen by neurology and will stroke workup was ordered. MRI of the brain, carotid duplex, 2-D echocardiogram and lipid panel was ordered. Patient was started on aspirin 325 mg daily. Pulmonary and neurology is following. Active Medications Albuterol/Ipratropium (Duoneb 0.5 Mg-3 Mg/3 Ml Soln) 3 ml INHALATION RT-Q4H PRN PRN Reason: Shortness Of Breath Or Wheezing Last Admin: 04/04/19 07:30 Dose: 3 ml Documented by: Albuterol/Ipratropium (Duoneb 0.5 Mg-3 Mg/3 Ml Soln) 3 ml INHALATION RT-Q4H [facility] Last Admin: 04/09/19 19:41 Dose: 3 ml Documented by: Aspirin (Aspirin) 325 mg PO DAILY [facility] Last Admin: 04/09/19 16:48 Dose: 325 mg Documented by: Atorvastatin Calcium (Lipitor) 40 mg PO HS [facility] Last Admin: 04/09/19 20:27 Dose: 40 mg Documented by: Budesonide (Pulmicort) 1 mg INHALATION RT-BID [facility] Last Admin: 04/09/19 19:41 Dose: 1 mg Documented by: Carvedilol (Coreg) 6.25 mg PO BID-W/MEALS [facility] Last Admin: 04/09/19 16:47 Dose: 6.25 mg Documented by: Clonidine HCl (Catapres-Tts 0.3mg Patch) 1 patch TRANSDERM Q7D [facility] Last Admin: 04/07/19 09:04 Dose: 1 patch Documented by: Enoxaparin Sodium (Lovenox) 40 mg SQ DAILY [facility] Last Admin: 04/09/19 07:48 Dose: 40 mg Documented by: Formoterol Fumarate (Perforomist) 20 mcg INHALATION RT-BID [facility] Last Admin: 04/09/19 19:41 Dose: 20 mcg Documented by: Furosemide (Lasix) 20 mg PO DAILY [facility] Last Admin: 04/09/19 07:39 Dose: 20 mg Documented by: Piperacillin Sod/Tazobactam (Sod 3.375 gm/ Sodium Chloride) 100 mls @ 25 mls/hr IVPB Q8HR [facility] Last Admin: 04/09/19 16:48 Dose: 25 mls/hr Documented by: Labetalol HCl (Trandate) 15 mg IVP Q2H PRN PRN Reason: Hypertension Last Admin: 04/06/19 05:24 Dose: 15 mg Documented by: Miscellaneous Information (Magnesium Per Protocol) 1 each MISCELLANE DAILY PRN; Protocol PRN Reason: Per Protocol Naloxone HCl (Narcan) 0.2 mg IV Q2M PRN PRN Reason: Opioid Reversal Pantoprazole Sodium (Protonix) 40 mg IV DAILY [facility] Last Admin: 04/09/19 07:43 Dose: 40 mg Documented by: Prednisone () 40 mg PO DAILY [facility] Last Admin: 04/09/19 07:38 Dose: 40 mg Documented by: Objective - Vital Signs Vital signs: Vital Signs Temp 97.7 F 04/09/19 21:00 Pulse 71 04/09/19 21:00 Resp 16 04/09/19 21:00 BP 97/59 04/09/19 21:00 Pulse Ox 95 04/09/19 21:00 Intake & Output 04/09/19 04/09/19 04/10/19 06:59 18:59 06:59 Intake Total 1410 360 Output Total 420 802 Balance 990 -442 Weight 92.5 kg Intake: IV 100 Piperacillin-Tazobactam 3 100 .375 gm In Sodium Chloride 0.9% 100 ml @ 25 mls/hr IVPB Q8HR [facility] Rx# :[id number] Oral 1310 360 Output: Urine 420 800 Stool 2 Other: Voiding Method Urinal Urinal # Voids 3 ABP, PAP, CO, CI - Last Documented Arterial Blood Pressure 127/61 - Exam GENERAL: 63-year-old male, awake and alert and sitting up in the chair and responding to simple commands. Patient is currently on high flow oxygen via nasal cannula HEENT: Pupils are round and equally reacting to light. EOMI. No scleral icterus. No conjunctival pallor. Normocephalic, atraumatic. No pharyngeal erythema. No thyromegaly. CARDIOVASCULAR: S1 and S2 present. No murmurs, rubs, or gallops. PULMONARY: Lung sounds diminished at the bases with a few scattered wheezes noted ABDOMEN: Soft, obese, nontender, nondistended, normoactive bowel sounds. No palpable organomegaly. MUSCULOSKELETAL: No joint swelling or deformity. EXTREMITIES: No cyanosis, clubbing, or pedal edema. NEUROLOGICAL: Alert and awake, cooperative SKIN: No rashes. Left index finger noted with scabs status post recent abscess and laceration, old dressing of left index finger was removed and wound was cleansed with no signs of redness, swelling, or drainage noted. - Labs CBC & Chem 7: 04/09/19 07:28 04/09/19 07:28 Labs: Abnormal Lab Results - Last 24 Hours (Table) 04/09/19 04/09/19 04/09/19 Range/Units 07:28 07:28 07:28 WBC 18.7 H (3.8-10.6) k/uL Neutrophils # (Manual) 9.72 H (1.3-7.7) k/uL Lymphocytes # (Manual) 7.67 H (1.0-4.8) k/uL Monocytes # (Manual) 1.31 H (0-1.0) k/uL BUN 27 H (9-20) mg/dL POC Glucose (mg/dL) (75-99) mg/dL Cholesterol 222 H (<200) mg/dL LDL Cholesterol, Calc 179 H (0-99) mg/dL HDL Cholesterol 20 L (40-60) mg/dL 04/09/19 Range/Units 12:49 WBC (3.8-10.6) k/uL Neutrophils # (Manual) (1.3-7.7) k/uL Lymphocytes # (Manual) (1.0-4.8) k/uL Monocytes # (Manual) (0-1.0) k/uL BUN (9-20) mg/dL POC Glucose (mg/dL) 104 H (75-99) mg/dL Cholesterol (<200) mg/dL LDL Cholesterol, Calc (0-99) mg/dL HDL Cholesterol (40-60) mg/dL Assessment and Plan Assessment: -Acute hypoxic and hypercapnic respiratory failure syndrome with COPD exacerbation and may be a right lower lobe pneumonia and aspiration pneumonia because of which the patient is on Zosyn at this time. -Acute right-sided facial weakness due to acute CVA with Lacunar far. resolved now. --Severe hyponatremia: Multifactorial there may be a component of psychogenic polydipsia, SIADH from medications as well as hypovolemia. 3% saline has been discontinued there is a component of hypervolemia because of which patient was started on IV fluids. Sodium level improved now. DC'd IV fluids. -Mediastinal lymphadenopathy which need to be followed as an outpatient once he is stable with repeat CAT scan. -Metabolic encephalopathy secondary to hyponatremia -COPD with acute exacerbation patient systemic steroids -Type 2 diabetes mellitus -Schizophrenia -Nicotine abuse *for above-mentioned chronic medical problems patient will be resumed on appropriate home medications whenever he can tolerate oral medications. Speech therapy was consulted because of his mental status to assess if he can actually swallow. May need a modified barium swallow eval Plan: Continue current medications, management, and symptomatic treatment. Multiple medical consultations following. Patient currently remains in the ICU and awaiting a [facility] bed to become available for transfer. Patient is being maintained on high flow oxygen at 6 L via nasal cannula. Patient is off of Cleviprex and continuing on Catapres patch at this time. Will continue to monitor vital signs and labs closely. Patient was started on IV steroids and will be started on oral Lasix. Patient will start a dysphagia 2 ground diet with thin liquids and maintaining aspiration precautions as his modified barium swallow did not show any signs of aspiration. Patient needs supervision when e ating as he still occasionally coughs and has a very weak cough. sodium today is 141. Patient may resume oral meds. Will repeat a.m. labs. Further recommendations to follow. Case management and social work are following as they are looking to obtain guardianship this Thursday for possible placement once patient is stabilized for discharge. Time with Patient: Greater than 30
[2019-04-10] MEDS: IPRATROPIUM-ALBUTEROL 3 ML NEB INHALATION SCH ×6 (01:28→18:43)
[2019-04-10] MEDS: BUDESONIDE 1 MG/2 ML NEBU INHALATION SCH ×2 (07:20→18:43)
[2019-04-10] MEDS: FORMOTEROL FUMARATE 20 MCG/2 ML NEBU INHALATION SCH ×2 (07:20→18:43)
[2019-04-10 07:29] LABS: African American GFR (CKD) >90 (>60 ml/min/1.73 sqM); Anion Gap 6 mmol/L; Blood Urea Nitrogen 21 mg/dL (9-20); Calcium 8.2 mg/dL (8.4-10.2); Carbon Dioxide 28 mmol/L (22-30); Chloride 100 mmol/L (98-107); Glucose 95 mg/dL (74-99); Non-African American GFR(CKD) >90 (>60 ml/min/1.73 sqM); Potassium 3.6 mmol/L (3.5-5.1); Sodium 134 mmol/L (137-145)
[2019-04-10 07:40] LABS: HCT 41.3 % (39.0-53.0); HGB 12.9 gm/dL (13.0-17.5); MCH 28.7 pg (25.0-35.0); MCHC 31.3 g/dL (31.0-37.0); MCV 91.9 fL (80.0-100.0); Mean Platelet Volume 7.2; Platelet Count 250 k/uL (150-450); RBC 4.49 m/uL (4.30-5.90); RDW 13.1 % (11.5-15.5)
[2019-04-10] MEDS: PANTOPRAZOLE 40 MG/10 ML VIAL IV SCH (07:40)
[2019-04-10] MEDS: CARVEDILOL 6.25 MG TAB PO SCH ×2 (07:41→16:42)
[2019-04-10] MEDS: predniSONE 20 MG TAB PO SCH (07:41)
[2019-04-10] MEDS: FUROSEMIDE 20 MG TAB PO SCH (07:41)
[2019-04-10] MEDS: PIPERACILLIN-TAZOBACTAM 3.375 GM in SODIUM CHLORIDE 0.9% 100 ML IVPB SCH ×3 (07:41→23:13)
[2019-04-10] MEDS: ENOXAPARIN 40 MG/0.4 ML SYRINGE SQ SCH (07:41)
[2019-04-10] MEDS: ASPIRIN 325 MG TAB PO SCH (07:41)
[2019-04-10 08:56] LABS: Anisocytosis (M) Present; Monocytes # (M) 0.84 k/uL (0-1.0); Neutrophils # (M) 7.56 k/uL (1.3-7.7); Neutrophils % (M) 36 %; Nucleated Red Blood Cells 0 /100 WBC (0-0); Total Cells Counted 100
--- NOTE | 2019-04-10 12:41 | P.PN ---
Subjective Progress Note Date: 04/10/19 Principal diagnosis: Hyponatremia with metabolic encephalopathy, acute hypercapnic/hypoxemic respiratory failure The patient is seen today 04/09/2019 in follow-up on the regular medical floor. He is awake and alert in no acute distress. His been weaned down to 6 L high flow nasal cannula. She's been afebrile. Hemodynamically stable. Sputum had been positive for Enterobacter cloacae. Blood culture reveals no growth. White count 18.7. Hemoglobin 13.4. Creatinine 0.68. He is continued on DuoNeb inhalations, Pulmicort and Perforomist inhalations, oral prednisone and antibiotics in the form of Zosyn. The patient is seen today August in follow-up on the regular medical floor. He is currently resting comfortably in bed. Awake and alert in no acute distress. Denies any worsening shortness of breath, cough or congestion. Maintaining O2 saturation in the low 90s on room air. He is afebrile. Hemodynamically stable. White count 21.0. Hemoglobin 12.9. Creatinine 0.63. Remains on Zosyn, DuoNeb inhalations, Pulmicort and Perforomist inhalations, pr ednisone. Objective - Vital Signs Vital signs: Vital Signs Temp 98.4 F 04/10/19 11:55 Pulse 61 04/10/19 11:55 Resp 16 04/10/19 11:55 BP 130/87 04/10/19 11:55 Pulse Ox 94 L 04/10/19 11:55 Intake & Output 04/09/19 04/10/19 04/10/19 18:59 06:59 18:59 Intake Total 360 1410 480 Output Total 802 401 126 Balance -442 1009 354 Weight 93 kg Intake: IV 100 Piperacillin-Tazobactam 3 100 .375 gm In Sodium Chloride 0.9% 100 ml @ 25 mls/hr IVPB Q8HR [facility] Rx# :[id number] Oral 360 1310 480 Output: Urine 800 400 125 Stool 2 1 1 Other: Voiding Method Urinal Urinal Urinal # Voids 2 1 ABP, PAP, CO, CI - Last Documented Arterial Blood Pressure 127/61 - Exam GENERAL EXAM: Alert, 63-year-old male patient, comfortable, on room air, in no apparent distress. HEAD: Normocephalic/atraumatic. EYES: Normal reaction of pupils, equal size. Conjunctiva pink, sclera white. NOSE: Clear with pink turbinates. THROAT: No erythema or exudates. NECK: No masses, no JVD, no thyroid enlargement, no adenopathy. CHEST: No chest wall deformity. Symmetrical expansion. LUNGS: Equal air entry with crackles in the left lung base. CVS: Regular rate and rhythm, normal S1 and S2, no gallops, no murmurs, no rubs ABDOMEN: Soft, nontender. No hepatosplenomegaly, normal bowel sounds, no guarding or rigidity. EXTREMITIES: No clubbing, no edema, no cyanosis, 2+ pulses and upper and lower extremities. MUSCULOSKELETAL: Muscle strength and tone normal. SPINE: No scoliosis or deformity SKIN: No rashes CENTRAL NERVOUS SYSTEM: Alert and oriented -1. No focal deficits, tone is normal in all 4 extremities. - Labs CBC & Chem 7: 04/10/19 06:36 04/10/19 06:36 Labs: Abnormal Lab Results - Last 24 Hours (Table) 04/09/19 04/09/19 04/10/19 Range/Units 07:28 12:49 06:36 WBC 21.0 H (3.8-10.6) k/uL Hgb 12.9 L (13.0-17.5) gm/dL Lymphocytes # (Manual) 12.60 H (1.0-4.8) k/uL Sodium (137-145) mmol/L BUN (9-20) mg/dL Creatinine (0.66-1.25) mg/dL POC Glucose (mg/dL) 104 H (75-99) mg/dL Calcium (8.4-10.2) mg/dL Cholesterol 222 H (<200) mg/dL LDL Cholesterol, Calc 179 H (0-99) mg/dL HDL Cholesterol 20 L (40-60) mg/dL 04/10/19 Range/Units 06:36 WBC (3.8-10.6) k/uL Hgb (13.0-17.5) gm/dL Lymphocytes # (Manual) (1.0-4.8) k/uL Sodium 134 L (137-145) mmol/L BUN 21 H (9-20) mg/dL Creatinine 0.63 L (0.66-1.25) mg/dL POC Glucose (mg/dL) (75-99) mg/dL Calcium 8.2 L (8.4-10.2) mg/dL Cholesterol (<200) mg/dL LDL Cholesterol, Calc (0-99) mg/dL HDL Cholesterol (40-60) mg/dL Assessment and Plan Assessment: #1. Acute hypoxic and hypercapnic respiratory failure secondary to acute exacerbation of COPD and bibasilar pneumonia related to Enterobacter cloacae #2. Severe hyponatremia, possible SIADH, could be related to psychiatric medications, improved, responded well to treatment #3. Acute mental status changes, acute metabolic encephalopathy secondary to hyponatremia #4. History of type 2 diabetes mellitus #5. History of schizophrenia #6. History of nicotine dependence syndrome #7. Possible right lower lobe aspiration pneumonia #8. Hypertension Plan: The patient was seen and evaluated by Dr. Syed. We'll continue the current treatment plan. Continue to titrate down the FiO2 as tolerated. Increase his activity as tolerated. We'll continue to follow. I, the cosigning physician, performed a history & physical examination of the patient. Lungs sounds with crackles in left lung base. Maintaining good O2 saturations in the 90s on room air. I discussed the assessment and plan of care with my nurse practitioner, Sandra Gagnon. I attest to the above note as dictated by her.
--- NOTE | 2019-04-10 13:59 | ECHOF ---
Referral Reason:Acute CVA MEASUREMENTS -------- HEIGHT: 182.9 cm WEIGHT: 92.1 kg BP: 132/88 IVSd: 1.5 cm (0.6 - 1.1) LVIDd: 3.7 cm (3.9 - 5.3) LVPWd: 1.7 cm (0.6 - 1.1) IVSs: 1.6 cm LVIDs: 2.3 cm LVPWs: 2.0 cm RVIDd: 4.1 cm (< 3.3) MV E Nathan: 0.52 m/s MV DecT: 229 ms MV A Nathan: 0.78 m/s MV E/A Ratio: 0.67 FINDINGS -------- Sinus rhythm. This was a technically difficult study with suboptimal views. Pt has severe COPD. Sitting up. The left ventricular size is normal. There is moderate concentric left ventricular hypertrophy. O verall left ventricular systolic function is normal with, an EF between 55 - 60 %. The right ventricle is moderately enlarged. The left atrium was not well visualized. The right atrium was not well visualized. 5.0mg of Lumason was utilized for enhancement of images Interatrial and interventricular septum intact. The aortic valve was not well visualized. There is no evidence of aortic regurgitation. There is no evidence of aortic stenosis. The mitral valve was not well visualized. No mitral regurgitation. The tricuspid valve was not well visualized. The pulmonic valve was not well visualized. Ao root not well visualized IVC Not well visulized. There is no pericardial effusion. CONCLUSIONS -------- 1. Sinus rhythm. 2. This was a technically difficult study with suboptimal views. 3. Pt has severe COPD. Sitting up. 4. The left ventricular size is normal. 5. There is moderate concentric left ventricular hypertrophy. 6. Overall left ventricular systolic function is normal with, an EF between 55 - 60 %. 7. The right ventricle is moderately enlarged. 8. The left atrium was not well visualized. 9. The right atrium was not well visualized. 10. 5.0mg of Lumason was utilized for enhancement of images 11. Interatrial and interventricular septum intact. 12. The aortic valve was not well visualized. 13. There is no evidence of aortic regurgitation. 14. There is no evidence of aortic stenosis. 15. The mitral valve was not well visualized. 16. No mitral regurgitation. 17. The tricuspid valve was not well visualized. 18. The pulmonic valve was not well visualized. 19. Ao root not well visualized 20. IVC Not well visulized. 21. There is no pericardial effusion. HOT STICK WORKER: Cici Cobb RDCS
[2019-04-10 14:34] VITALS: BMI 27.8
[2019-04-10] MEDS: ATORVASTATIN 40 MG TAB PO SCH (20:01)
--- NOTE | 2019-04-10 23:51 | P.PN ---
Subjective Progress Note Date: 04/10/19 Principal diagnosis: Acute hypoxic and hypercapnic respiratory failure syndrome with COPD exacerbation Acute CVA with lacunar infarct. Currently back to baseline. 63-year-old male with known history of hypertension schizophrenia came in completely confused, altered mental status. patient is unable to provide any history to me patient as he is excessively drowsy but able to wake up with verbal stimuli. But unable to provide any history. Patient is found to be severely hyponatremic also found to have aspiration pneumonia. Patient does have significant leukocytosis. Patient in the past was treated for hypovolemic as was hypovolemic hyponatremia. Patient serum sodium is extremely low at 113 on 3% saline to 117. Nephrology is following the patient I did order urine o smolality, serum osmolality urine random sodium urine didn't random creatinine urinary uric acid although these labs will not be reliable because as patient is already on saline now. 03/31/2019 Patient is currently in the ICU being closely monitored with a avionics safety inspector at the bedside. Patient continues to be confused and quite lethargic. Per sitter, patient occasionally tries to get up out of the bed but is not coherent as to what he is doing. Patient continues to fall asleep when talking with the patient but is arousable to voice. Current sodium is 121. Nephrology is following. White blood count has also improved slightly and is trending down and is currently 20.1. Today's chest x-ray shows possible underlying mild pulmonary vascular congestion with the right hilar masslike prominence and persistent right basilar obesity. 04/01/2019 Patient currently remains in the ICU and is being closely monitored and patient was intubated last night as he continued to deteriorate and developed hypoxic and hypercapnic respiratory failure. Patient was very lethargic and unarousable and patient was intubated with Dr. Miranda. Currently patient is sedated and seems to be much more comfortable. Chest x-ray today shows some improvement of the right lower lobe pneumonia. Patient's sodium is currently 126 and 3% normal saline has been discontinued. Nephrology is following. Sputum cultures thus far showing gram-negative bacilli and patient is currently on Unasyn and will continue at this time. 04/02/2019 Patient remains intubated patient remains hypercapnic sick and hypercapnic because of which the activation was not attempted today. Patient remains on pressor support patient is on minimal vent settings at this time patient on 50 mL of normal saline as it was believed that patient has uremic hyponatremia improved with the 3% saline and now patient has some metabolic alkalosis partly because of the respiratory compensation and the there may be a competent of the contraction alkalosis. His serum sodium is 130on admission serum sodium is 114. 04/03/2019 Patient's serum sodium did improve patient remains intubated patient will be on sedation vacation today no plans on weaning trial today as per pulmonology. 04/04/2019 Patient is sitting up and appears to be in no acute distress. Patient is currently being closely monitored in the ICU and will continue at this time. Patient remains ventilated and undergoing trial breathing and not tolerating well at this time. Patient will continue on the vent at this time. Pulmonary is following closely. Sputum culture results have resulted with enterobacter cloacae and IV antibiotics and been adjusted to Zosyn and will continue at this time. Patient remains on tube feedings and tolerating well thus far. Will con tinue to monitor closely. Serum sodium is 135 today. Willl discontinue IV fluids. 04/05/2019 Patient is sitting up and currently remains in the ICU being closely monitored. No acute overnight issues. Patient is awake and was recently just extubated with Dr. Syed and tolerating well thus far. Patient is currently on 5 L of oxygen via nasal cannula with oxygen saturations in the low 90s. Patient is responding appropriately to commands. Sitter is at the bedside for safety as the patient attempts to get out of bed at times. Awaiting to have a swallow eval done with speech possibly today or tomorrow as he is currently nothing by mouth. Repeat chest x-ray today shows stable findings and continues with some possible mild venous congestion. Patient will be given a dose of IV Lasix agai n. Patient is currently off IV fluids and will continue at this time. 04/06/2019 Patient is sitting up in currently remains in the ICU being closely monitored. Patient is currently requiring high flow oxygen via nasal cannula at 15 L. Pulmonary is following closely. Patient is also currently on Cleviprex for blood pressure control if he was having elevated blood pressures throughout the night and this morning. Patient is able to respond appropriately to simple commands but continues to not talk much. Patient is hard of hearing. Patient underwent a swallow eval and failed and will continue nothing by mouth with just ice chips at this time. Repeat chest x-ray shows no real improvement. Patient will be started on steroids and was given another dose of IV Lasix. 04/07/2019 Patient is sitting up in the chair and appears to be in no acute distress. Patient is currently being closely monitored in the ICU as he presently remains on a Cleviprex drip for tighter blood pressure control. Catapres patch was added. Patient currently remains nothing by mouth except small amounts of ice chips as he continues to fail swallow eval's. May need a modified barium swallow. Patient continues to receive daily doses of IV Lasix as repeat chest x-rays continue to show vascular congestion. Patient will be started on a dose of oral Lasix. Case management and social work are following and awaiting for guardianship that is expected to occur this Thursday. Will continue to monitor closely. 04/08/2019 Patient is sitting up in the chair and appears to be in no acute distress. Patient is currently being monitored in the ICU and awaiting a [facility] bed to become available for transfer. Patient is off the Cleviprex drip and blood pressure is more stabilized with a Catapres patch. Patient underwent a modified barium swallow and patient will be started on dysphagia 2 ground diet with thin liquids and no straws and will continue aspiration precautions and assistance with feeding. No aspiration noted on the swallow eval. Patient currently remains on high flow oxygen via nasal cannula and is now down to 9 L. Will continue to monitor closely. Possible guardianship this Thursday. 04/09/2019 Patient is currently awake alert. No acute distress. Currently saturating at 90% on 6 L high flow oxygen with another cannula. Patient is being continued on DuoNeb's, Pulmicort, Perforomist and oral prednisone and antibiotics in the form of Zosyn. Patient is being continued on dysphagia level II diet and aspiration precautions. Patient had right facial droop, strokelike symptoms. Patient underwent CT head showed possible left-sided lacunar infarct. Patient was seen by neurology and will stroke workup was ordered. MRI of the brain, carotid duplex, 2-D echocardiogram and lipid panel was ordered. Patient was started on aspirin 325 mg daily. Pulmonary and neurology is following. 04/10/2019 Patient is currently resting in the bed comfortably. Awake alert and oriented. No acute distress. Patient is otherwise lethargic at baseline. No complaints of chest pain or worsening short of breath. Saturating well on 2 L oxygen via nasal cannula. Laboratory data showed WBC count 21, hemoglobin 12.9 and creatinine 0.60. Patient is being continued on oral prednisone, DuoNeb's and Pulmicort and Perforomist. Antibiotics in the form of Zosyn. Pulmonary is on board. Patient is undergoing stroke workup as above. Active Medications Albuterol/Ipratropium (Duoneb 0.5 Mg-3 Mg/3 Ml Soln) 3 ml INHALATION RT-Q4H PRN PRN Reason: Shortness Of Breath Or Wheezing Last Admin: 04/04/19 07:30 Dose: 3 ml Documented by: Albuterol/Ipratropium (Duoneb 0.5 Mg-3 Mg/3 Ml Soln) 3 ml INHALATION RT-Q4H [facility] Last Admin: 04/09/19 19:41 Dose: 3 ml Documented by: Aspirin (Aspirin) 325 mg PO DAILY [facility] Last Admin: 04/09/19 16:48 Dose: 325 mg Documented by: Atorvastatin Calcium (Lipitor) 40 mg PO HS [facility] Last Admin: 04/09/19 20:27 Dose: 40 mg Documented by: Budesonide (Pulmicort) 1 mg INHALATION RT-BID [facility] Last Admin: 04/09/19 19:41 Dose: 1 mg Documented by: Carvedilol (Coreg) 6.25 mg PO BID-W/MEALS [facility] Last Admin: 04/09/19 16:47 Dose: 6.25 mg Documented by: Clonidine HCl (Catapres-Tts 0.3mg Patch) 1 patch TRANSDERM Q7D [facility] Last Admin: 04/07/19 09:04 Dose: 1 patch Documented by: Enoxaparin Sodium (Lovenox) 40 mg SQ DAILY [facility] Last Admin: 04/09/19 07:48 Dose: 40 mg Documented by: Formoterol Fumarate (Perforomist) 20 mcg INHALATION RT-BID [facility] Last Admin: 04/09/19 19:41 Dose: 20 mcg Documented by: Furosemide (Lasix) 20 mg PO DAILY [facility] Last Admin: 04/09/19 07:39 Dose: 20 mg Documented by: Piperacillin Sod/Tazobactam (Sod 3.375 gm/ Sodium Chloride) 100 mls @ 25 mls/hr IVPB Q8HR [facility] Last Admin: 04/09/19 16:48 Dose: 25 mls/hr Documented by: Labetalol HCl (Trandate) 15 mg IVP Q2H PRN PRN Reason: Hypertension Last Admin: 04/06/19 05:24 Dose: 15 mg Documented by: Miscellaneous Information (Magnesium Per Protocol) 1 each MISCELLANE DAILY PRN; Protocol PRN Reason: Per Protocol Naloxone HCl (Narcan) 0.2 mg IV Q2M PRN PRN Reason: Opioid Reversal Pantoprazole Sodium (Protonix) 40 mg IV DAILY [facility] Last Admin: 04/09/19 07:43 Dose: 40 mg Documented by: Prednisone () 40 mg PO DAILY [facility] Last Admin: 04/09/19 07:38 Dose: 40 mg Documented by: Objective - Vital Signs Vital signs: Vital Signs Temp 98.4 F 04/10/19 11:55 Pulse 62 04/10/19 15:44 Resp 16 04/10/19 15:44 BP 130/87 04/10/19 11:55 Pulse Ox 94 L 04/10/19 11:55 Intake & Output 04/09/19 04/10/19 04/10/19 18:59 06:59 18:59 Intake Total 360 1410 1900 Output Total 802 401 253 Balance -442 1009 1647 Weight 93 kg 93 kg Intake: IV 100 120 0.9 Normal Saline @ 10mls 120 /hr Piperacillin-Tazobactam 3 100 .375 gm In Sodium Chloride 0.9% 100 ml @ 25 mls/hr IVPB Q8HR [facility] Rx# :[id number] Intake, IV Titration 100 Amount Piperacillin-Tazobactam 3 100 .375 gm In Sodium Chloride 0.9% 100 ml @ 25 mls/hr IVPB Q8HR [facility] Rx# :[id number] Oral 360 1310 1680 Output: Urine 800 400 250 Stool 2 1 3 Other: Voiding Method Urinal Urinal Urinal # Voids 2 4 ABP, PAP, CO, CI - Last Documented Arterial Blood Pressure 127/61 - Exam GENERAL: 63-year-old male, awake and alert and sitting up in the chair and responding to simple commands. Patient is currently on high flow oxygen via oanh al cannula HEENT: Pupils are round and equally reacting to light. EOMI. No scleral icterus. No conjunctival pallor. Normocephalic, atraumatic. No pharyngeal erythema. No thyromegaly. CARDIOVASCULAR: S1 and S2 present. No murmurs, rubs, or gallops. PULMONARY: Lung sounds diminished at the bases with a few scattered wheezes noted ABDOMEN: Soft, obese, nontender, nondistended, normoactive bowel sounds. No palpable organomegaly. MUSCULOSKELETAL: No joint swelling or deformity. EXTREMITIES: No cyanosis, clubbing, or pedal edema. NEUROLOGICAL: Alert and awake, cooperative SKIN: No rashes. Left index finger noted with scabs status post recent abscess and laceration, old dressing of left index finger was removed and wound was cleansed with no signs of redness, swelling, or drainage noted. - Labs CBC & Chem 7: 04/10/19 06:36 04/10/19 06:36 Labs: Abnormal Lab Results - Last 24 Hours (Table) 04/10/19 04/10/19 Range/Units 06:36 06:36 WBC 21.0 H (3.8-10.6) k/uL Hgb 12.9 L (13.0-17.5) gm/dL Lymphocytes # (Manual) 12.60 H (1.0-4.8) k/uL Sodium 134 L (137-145) mmol/L BUN 21 H (9-20) mg/dL Creatinine 0.63 L (0.66-1.25) mg/dL Calcium 8.2 L (8.4-10.2) mg/dL Assessment and Plan Assessment: -Acute hypoxic and hypercapnic respiratory failure syndrome with COPD exacerbation and may be a right lower lobe pneumonia and aspiration pneumonia because of which the patient is on Zosyn at this time. -Acute right-sided facial weakness due to acute CVA with Lacunar far. resolved now. Pending stroke workup. --Severe hyponatremia: Multifactorial there may be a component of psychogenic polydipsia, SIADH from medications as well as hypovolemia. 3% saline has been discontinued there is a component of hypervolemia because of which patient was started on IV fluids. Sodium level improved now. DC'd IV fluids. -Mediastinal lymphadenopathy which need to be followed as an outpatient once he is stable with repeat CAT scan. -Metabolic encephalopathy secondary to hyponatremia -COPD with acute exacerbation patient systemic steroids -Type 2 diabetes mellitus -Schizophrenia -Nicotine abuse *for above-mentioned chronic medical problems patient will be resumed on appropriate home medications whenever he can tolerate oral medications. Speech therapy was consulted because of his mental status to assess if he can actually swallow. May need a modified barium swallow eval Plan: Continue current medications, management, and symptomatic treatment. Multiple medical consultations following. Patient currently remains in the ICU and awaiting a [facility] bed to become available for transfer. Patient is titrated down to 2 L via nasal cannula. Patient is off of Cleviprex and continuing on Catapres patch at this time. Will continue to monitor vital signs and labs closely. Continue with prednisone and breathing treatments. Patient was started on dysphagia 2 ground diet with thin liquids and maintaining aspiration precautions as his modified barium swallow did not show any signs of aspiration. Patient needs supervision when eating as he still occasionally coughs and has a very weak cough.. Will repeat a.m. labs. Further recommendations to follow. Case management and social work are following as they are looking to obtain guardianship this Thursday for possible placement once patient is stabilized for discharge. Time with Patient: Greater than 30
[2019-04-11 07:39] LABS: HCT 40.9 % (39.0-53.0); HGB 12.6 gm/dL (13.0-17.5); MCH 28.2 pg (25.0-35.0); MCHC 30.8 g/dL (31.0-37.0); MCV 91.6 fL (80.0-100.0); Mean Platelet Volume 7.4; Platelet Count 200 k/uL (150-450); RBC 4.47 m/uL (4.30-5.90); RDW 13.4 % (11.5-15.5); WBC 19.5 k/uL (3.8-10.6)
[2019-04-11 07:51] LABS: African American GFR (CKD) >90 (>60 ml/min/1.73 sqM); Anion Gap 6 mmol/L; Blood Urea Nitrogen 14 mg/dL (9-20); Carbon Dioxide 27 mmol/L (22-30); Chloride 103 mmol/L (98-107); Glucose 93 mg/dL (74-99); Non-African American GFR(CKD) >90 (>60 ml/min/1.73 sqM); Potassium 3.7 mmol/L (3.5-5.1); Sodium 136 mmol/L (137-145)
[2019-04-11] MEDS: IPRATROPIUM-ALBUTEROL 3 ML NEB INHALATION SCH ×4 (08:21→20:49)
[2019-04-11] MEDS: BUDESONIDE 1 MG/2 ML NEBU INHALATION SCH ×2 (08:21→20:49)
[2019-04-11] MEDS: FORMOTEROL FUMARATE 20 MCG/2 ML NEBU INHALATION SCH ×2 (08:21→20:49)
[2019-04-11] MEDS: PIPERACILLIN-TAZOBACTAM 3.375 GM in SODIUM CHLORIDE 0.9% 100 ML IVPB SCH ×3 (08:24→23:31)
[2019-04-11] MEDS: CARVEDILOL 6.25 MG TAB PO SCH ×2 (08:28→17:24)
[2019-04-11] MEDS: ASPIRIN 325 MG TAB PO SCH (08:28)
[2019-04-11] MEDS: PANTOPRAZOLE 40 MG/10 ML VIAL IV SCH (08:28)
[2019-04-11] MEDS: predniSONE 20 MG TAB PO SCH (08:28)
[2019-04-11] MEDS: FUROSEMIDE 20 MG TAB PO SCH (08:28)
[2019-04-11] MEDS: ENOXAPARIN 40 MG/0.4 ML SYRINGE SQ SCH (08:28)
[2019-04-11 11:23] LABS: Glucose,Whole Blood 100 mg/dL (75-99)
[2019-04-11 11:28] LABS: Lymphocytes # (M) 10.53 k/uL (1.0-4.8); Monocytes # (M) 1.95 k/uL (0-1.0); Neutrophils # (M) 7.02 k/uL (1.3-7.7); Neutrophils % (M) 36 %; Nucleated Red Blood Cells 0 /100 WBC (0-0); Total Cells Counted 100
[2019-04-11] MEDS: INSULIN ASPART (NovoLOG) 100 UNIT/ML VIAL SQ SCH ×3 (12:52→20:30)
--- NOTE | 2019-04-11 12:55 | MR ---
MR brain without contrast HISTORY: Cerebrovascular accident Multiplanar multisequence imaging through the brain Correlation CT brain dated 04/08/2019 There is extensive sinus disease. Difficult to exclude underlying polyps. Air-fluid level present in the sphenoid sinus and right maxillary sinus. Extensive inflammatory change also present within the m astoid air cells. There is no restricted diffusion to suggest subacute ischemia. Cortical atrophy is present. Extensive white matter demyelination present, scattered hyperintensities are present within the pericallosal, subcortical, deep white matter on inversion recovery T2-weighted sequences, approximately 40-50 lesio ns are present. Increased signal also noted within the luis. There is no hemorrhage or hydrocephalus. Motion is present, likely artifact on the exam. There are normal vascular flow voids. IMPRESSION: Pansinusitis. Mastoiditis. Correlate to exclude underlying polyp, mass. Age-related atrop hy and chronic small vessel ischemia.
--- NOTE | 2019-04-11 15:00 | P.PN ---
Progress Note - Text Progress Note Date: 04/11/19 SUBJECTIVE/INTERVAL EVENTS: No events overnight. Patient with no complaints. no weakness, numbness or tingling. no pain PHYSICAL EXAMINATION: VITAL SIGNS: T 97.9 HR 66 RR 17 BP 100/64 O2 sat 98% on 2L via NC GEN.: NAD, pleasant and cooperative HEENT: NCAT, sclera without icterus NECK: Supple SKIN AND EXTREMITIES: Warm to touch NEURO: MENTAL STATUS: Patient alert and oriented to self, place, time. Able to name the current president. Speech fluent, able to name and repeat, following all commands readily but hard of hearing. CRANIAL NERVES II THROUGH XII: II: Pupils are equal and reactive to light symmetrically. Visual mccartney are intact. III, IV, : No ptosis. Extraocular movements full. No nystagmus. V: Facial sensation intact from V1-3. VII. No clear facial asymmetry. VIII: Hearing intact to finger rub bilaterally. XI: Shoulder shrug intact. XII: Tongue midline without fasciculation or atrophy. MOTOR: Normal bulk/tone. No pronator drift or tremor. Strength is 5/5 throughout all 4 extremities. SENSORY: Intact to light touch in all 4 extremities. COORDINATION: Finger to nose intact. No dysmetria. GAIT: not assessed MEDICATIONS: DIAGNOSTICS: Laboratory: WBC 19.5 Hgb 12.6 Platelet 200 Na 136 K 3.7 Cl 103 CO2 27 BUN 14 Cr 0.65 Glucose 100 Total Cholesterol 222 LDL 179 HDL 20 TG 116 TSH 1.080 (03/30/2019) Imaging: MRI brain w/o contrast 04/11/2019: Pansinusitis. Mastoiditis. Age-related atrophy and chronic small vessel ischemia TTE 04/09/2019: Technically difficult study with suboptimal views. SR. EF 55-60%. Moderate concentric LV hypertrophy. RV moderately enlarged. LA/RA not well visualized. Interatrial and interventricular septum intact. Carotid Doppler 04/09/2019: Less than 25% stenosis in L ICA. There is antegrade flow in the L vertebral artery. R side not evaluated due to bandages. ASSESSMENT and PLAN: 63 year-old man with PMhx of DM, HTN and hard of hearing, admitted to [facility] on 03/29/2019 for AMS, confusion, severe hyponatremia and possible aspiration PNA, consulted Neurology for an episode of R facial droop. MRI brain negative. Recommendation: 1. c/w statin 2. okay to discontinue ASA unless pt has other reasons to be on an antiplatelet 3. Neurology will sign off at this time. Please feel free to contact Neurology again if with additional questions or concerns.
--- NOTE | 2019-04-11 16:17 | P.PN ---
Subjective Progress Note Date: 04/11/19 Principal diagnosis: 63-year-old male with known history of hypertension schizophrenia came in completely confused, altered mental status. patient is unable to provide any history to me patient as he is excessively drowsy but able to wake up with verbal stimuli. But unable to provide any history. Patient is found to be severely hyponatremic also found to have aspiration pneumonia. Patient does have significant leukocytosis. Patient in the past was treated for hypovolemic as was hypovolemic hyponatremia. Patient serum sodium is extremely low at 113 on 3% saline to 117. Nephrology is following the patient I did order urine osmolality, serum osmolality urine random sodium urine didn't random creatinine urinary uric acid although these labs will not be reliable because as patient is already on saline now. 03/31/2019 Patient is currently in the ICU being closely monitored with a instructor traffic safety at the bedside. Patient continues to be confused and quite lethargic. Per sitter, patient occasionally tries to get up out of the bed but is not coherent as to what he is doing. Patient continues to fall asleep when talking with the patient but is arousable to voice. Current sodium is 121. Nephrology is following. White blood count has also improved slightly and is trending down and is currently 20.1. Today's chest x-ray shows possible underlying mild pulmonary vascular congestion with the right hilar masslike prominence and persistent right basilar obesity. 04/01/2019 Patient currently remains in the ICU and is being closely monitored and patient was intubated last night as he continued to deteriorate and developed hypoxic and hypercapnic respiratory failure. Patient was very lethargic and unarousable and patient was intubated with Dr. Miranda. Currently patient is sedated and seems to be much more comfortable. Chest x-ray today shows some improvement of the right lower lobe pneumonia. Patient's sodium is currently 126 and 3% normal saline has been discontinued. Nephrology is following. Sputum cultures thus far showing gram-negative bacilli and patient is currently on Unasyn and will continue at this time. 04/02/2019 Patient remains intubated patient remains hypercapnic sick and hypercapnic because of which the activation was not attempted today. Patient remains on pressor support patient is on minimal vent settings at this time patient on 50 mL of normal saline as it was believed that patient has uremic hyponatremia improved with the 3% saline and now patient has some metabolic alkalosis partly because of the respiratory compensation and the there may be a competent of the contraction alkalosis. His serum sodium is 130on admission serum sodium is 114. 04/03/2019 Patient's serum sodium did improve patient remains intubated patient will be on sedation vacation today no plans on weaning trial today as per pulmonology. 04/04/2019 Patient is sitting up and appears to be in no acute distress. Patient is currently being closely monitored in the ICU and will continue at this time. Patient remains ventilated and undergoing trial breathing and not tolerating well at this time. Patient will continue on the vent at this time. Pulmonary is following closely. Sputum culture results have resulted with enterobacter cloacae and IV antibiotics and been adjusted to Zosyn and will continue at this time. Patient remains on tube feedings and tolerating well thus far. Will continue to monitor closely. Serum sodium is 135 today. Willl discontinue IV fluids. 04/05/2019 Patient is sitting up and currently remains in the ICU being closely monitored. No acute overnight issues. Patient is awake and was recently just extubated with Dr. Syed and tolerating well thus far. Patient is currently on 5 L of oxygen via nasal cannula with oxygen saturations in the low 90s. Patient is responding appropriately to commands. Sitter is at the bedside for safety as the patient attempts to get out of bed at times. Awaiting to have a swallow eval done with speech possibly today or tomorrow as he is currently nothing by mouth. Repeat chest x-ray today shows stable findings and continues with some possible mild venous congestion. Patient will be given a dose of IV Lasix again. Patient is currently off IV fluids and will continue at this time. 04/06/2019 Patient is sitting up in currently remains in the ICU being closely monitored. Patient is currently requiring high flow oxygen via nasal cannula at 15 L. Pulmonary is following closely. Patient is also currently on Cleviprex for blood pressure control if he was having elevated blood pressures throughout the night and this morning. Patient is able to respond appropriately to simple commands but continues to not talk much. Patient is hard of hearing. Patient underwent a swallow eval and failed and will continue nothing by mouth with just ice chips at this time. Repeat chest x-ray shows no real improvement. Patient will be started on steroids and was given another dose of IV Lasix. 04/07/2019 Patient is sitting up in the chair and appears to be in no acute distress. Patient is currently being closely monitored in the ICU as he presently remains on a Cleviprex drip for tighter blood pressure control. Catapres patch was added. Patient currently remains nothing by mouth except small amounts of ice chips as he continues to fail swallow eval's. May need a modified barium swallow. Patient continues to receive daily doses of IV Lasix as repeat chest x-rays continue to show vascular congestion. Patient will be started on a dose of oral Lasix. Case management and social work are following and awaiting for guardianship that is expected to occur this Thursday. Will continue to monitor closely. 04/08/2019 Patient is sitting up in the chair and appears to be in no acute distress. Patient is currently being monitored in the ICU and awaiting a [facility] bed to become available for transfer. Patient is off the Cleviprex drip and blood pressure is more stabilized with a Catapres patch. Patient underwent a modified barium swallow and patient will be started on dysphagia 2 ground diet with thin liquids and no straws and will continue aspiration precautions and assistance with feeding. No aspiration noted on the swallow eval. Patient currently remains on high flow oxygen via nasal cannula and is now down to 9 L. Will continue to monitor closely. Possible guardianship this Thursday. 04/09/2019 Patient is currently awake alert. No acute distress. Currently saturating at 90% on 6 L high flow oxygen with another cannula. Patient is being continued on DuoNeb's, Pulmicort, Perforomist and oral prednisone and antibiotics in the form of Zosyn. Patient is being continued on dysphagia level II diet and aspiration precautions. Patient had right facial droop, strokelike symptoms. Patient underwent CT head showed possible left-sided lacunar infarct. Patient was seen by neurology and will stroke workup was ordered. MRI of the brain, carotid duplex, 2-D echocardiogram and lipid panel was ordered. Patient was started on aspirin 325 mg daily. Pulmonary and neurology is following. 04/10/2019 Patient is currently resting in the bed comfortably. Awake alert and oriented. No acute distress. Patient is otherwise lethargic at baseline. No complaints of chest pain or worsening short of breath. Saturating well on 2 L oxygen via nasal cannula. Laboratory data showed WBC count 21, hemoglobin 12.9 and creatinine 0.60. Patient is being continued on oral prednisone, DuoNeb's and Pulmicort and Perforomist. Antibiotics in the form of Zosyn. Pulmonary is on board. Patient is undergoing stroke workup as above. 04/11/2019 Patient is sitting up in the chair and appears to be in no acute distress. Currently patient denies any chest pain, shortness of breath, or palpitations. Patient is afebrile. Patient denies any nausea or vomiting and has been tolerating diet. Patient is currently on 2 L of oxygen via nasal cannula and saturating well. Pulmonary is following. Neurology evaluated the patient. She underwent an MRI of the brain showing pansinusitis and mastoiditis with age- related atrophy and chronic small vessel ischemia with no restricted diffusion to suggest subacute ischemia. Public guardianship was obtained today and case management and social work are following for possible placement at [facility]. Objective - Vital Signs Vital signs: Vital Signs Temp 97.9 F 04/11/19 11:59 Pulse 76 04/11/19 12:06 Resp 17 04/11/19 11:59 BP 100/64 04/11/19 11:59 Pulse Ox 98 04/11/19 11:59 Intake & Output 04/10/19 04/11/19 04/11/19 18:59 06:59 18:59 Intake Total 2167 810 Output Total 253 3 Balance 1914 807 Weight 93 kg 93.5 kg Intake: IV 120 100 0.9 Normal Saline @ 10mls 120 /hr Piperacillin-Tazobactam 3 100 .375 gm In Sodium Chloride 0.9% 100 ml @ 25 mls/hr IVPB Q8HR [facility] Rx# :[id number] Intake, IV Titration 100 Amount Piperacillin-Tazobactam 3 100 .375 gm In Sodium Chloride 0.9% 100 ml @ 25 mls/hr IVPB Q8HR [facility] Rx# :[id number] Oral 1920 710 Tube Feeding 27 Output: Urine 250 3 Stool 3 Other: Voiding Method Urinal Urinal Urinal # Voids 4 1 ABP, PAP, CO, CI - Last Documented Arterial Blood Pressure 127/61 - Exam GENERAL: 63-year-old male, awake and alert and sitting up in the chair and responding to simple commands. Patient is currently on 2 L of oxygen via nasal cannula HEENT: Pupils are round and equally reacting to light. EOMI. No scleral icterus. No conjunctival pallor. Normocephalic, atraumatic. No pharyngeal erythema. No thyromegaly. CARDIOVASCULAR: S1 and S2 present. No murmurs, rubs, or gallops. PULMONARY: Lung sounds diminished at the bases with a few scattered wheezes noted ABDOMEN: Soft, obese, nontender, nondistended, normoactive bowel sounds. No palpable organomegaly. MUSCULOSKELETAL: No joint swelling or deformity. EXTREMITIES: No cyanosis, clubbing, or pedal edema. NEUROLOGICAL: Alert and awake, cooperative SKIN: No rashes. Left index finger noted with scabs status post recent abscess and laceration, old dressing of left index finger was removed and wound was cleansed with no signs of redness, swelling, or drainage noted. - Labs CBC & Chem 7: 04/11/19 06:42 04/11/19 06:42 Labs: Abnormal Lab Results - Last 24 Hours (Table) 04/11/19 04/11/19 04/11/19 Range/Units 06:42 06:42 11:22 WBC 19.5 H (3.8-10.6) k/uL Hgb 12.6 L (13.0-17.5) gm/dL MCHC 30.8 L (31.0-37.0) g/dL Lymphocytes # (Manual) 10.53 H (1.0-4.8) k/uL Monocytes # (Manual) 1.95 H (0-1.0) k/uL Sodium 136 L (137-145) mmol/L Creatinine 0.65 L (0.66-1.25) mg/dL POC Glucose (mg/dL) 100 H (75-99) mg/dL Calcium 8.0 L (8.4-10.2) mg/dL Assessment and Plan Assessment: -Acute hypoxic and hypercapnic respiratory failure syndrome with COPD exacerbation and may be a right lower lobe pneumonia and aspiration pneumonia because of which the patient is on Zosyn at this time. -Acute right-sided facial weakness due to acute CVA with Lacunar far. resolved now. Neurology evaluated the patient and has signed off at this time. MRI was done and shows pansinusitis and mastoiditis with age-related atrophy and chronic small vessel ischemia. --Severe hyponatremia: Multifactorial there may be a component of psychogenic polydipsia, SIADH from medications as well as hypovolemia. 3% saline has been discontinued there is a component of hypervolemia because of which patient was started on IV fluids. Sodium level improved now. DC'd IV fluids. -Mediastinal lymphadenopathy which need to be followed as an outpatient once he is stable with repeat CAT scan. -Metabolic encephalopathy secondary to hyponatremia -COPD with acute exacerbation patient systemic steroids -Type 2 diabetes mellitus -Schizophrenia -Nicotine abuse Plan: Continue current medications, management, and symptomatic treatment. Multiple medical consultations following. Will continue to monitor vital signs and labs closely. Continue with prednisone and breathing treatments. Patient was started on dysphagia 2 ground diet with thin liquids and maintaining aspiration precautions as his modified barium swallow did not show any signs of aspiration. Patient needs supervision when eating as he still occasionally coughs and has a very weak cough.. Will repeat a.m. labs. Further recommendations to follow. Case management and social work are following as they have obtained public guardianship today and working on possible placement at [facility] once patient is stabilized for discharge. Possible discharge in 24-48 hours.
--- NOTE | 2019-04-11 17:10 | P.PN ---
Subjective Progress Note Date: 04/11/19 Principal diagnosis: Hyponatremia and metabolic encephalopathy, acute hypercapnic and hypoxemic respiratory failure This is a 63-year-old white male, poor historian, known history of schizophrenia, hypertension, patient is on multiple psychiatric medications, presented to the ER with mostly mental status change and worsening confusion. Patient was found to have extremely low sodium of 111, and his chest x-ray is suggestive of right lower lobe aspiration pneumonia. Patient was noted to have leukocytosis, he was noted to be hypovolemic clinically, and patient was initially started on 3% saline his repeat serum sodium today is 117. Nephrology has the patient on consultation, urine and serum osmolalities are pending. Considering the patient was admitted to the ICU and he was placed on 3% hypertonic saline, I was asked to see him on consultation. However upon my eval uation of the patient, he seems to be confused, in no form of respiratory distress, and no further information could be obtained from the patient himself. No family members at bedside. Reevaluated today on 03/31/2019, patient remains in the ICU, his pulmonary status is rather marginal. Patient is not doing well with incentive spirometry, and he does not follow instructions as far as deep coughing and deep breathing and clearing secretions. He does sound wet, and crackly, but the patient does not cough to clear his secretions. Chest x-ray showed mild pulmonary vascular congestion, and right lower lobe atelectasis, possibly right sided pneumonia. Sodium today is up to 121. His renal profile is normal BUN is 10 and creatinine 0.57. WBC count is 20.1. Remains on antibiotics for presumptive aspiration. Patient was seen by nephrology yesterday, and he was felt to have hypovolemic hyponatremia. Patient continues to have a safety technician at bedside. And he continues to be confused, and lethargic. At times he tries to get out of bed, and he is not coherent. Reevaluated today on 04/01/2019, patient deteriorated yesterday significantly. Around 5:00 yesterday, patient developed hypoxic and hypercapnic respiratory failure, I happened to be in the ICU at the time, patient was on nonrebreather mask, and when I assessed him, he was extremely difficult to arouse. Could not be aroused, and he had significant amount of wheezing. And he was using his accessory muscles to breathe. Hence intubated the patient immediately, placed on mechanical ventilation, and placed on propofol overnight. He was placed on bronchodilators, steroids. And reevaluated today. Chest x-ray is showing improvement in his right lower lobe pneumonia and atelectasis. His ventilator settings are assist control rate of 20, tidal volume of 500, FiO2 is 50% and PEEP of 5. Propofol is at 50 mcg/kg/m. Not requiring any pressors. ABG this morning showed a pO2 of 101 pCO2 of 43 pH of 7.47. Sodium is up to 127 today. WBC count is 17.3 hemoglobin is 12.5. Renal functioning is normal. Blood cultures are negative so far. Sputum cultures are pending. Patient remains on Unasyn, bronchodilators, Lovenox, methylprednisolone for his COPD exacerbation, he is also on GI and DVT prophylaxis. Patient is on Lovenox. Reevaluated today on 04/02/2019, patient remains intubated, mechanically ventilated.patient is on the same ventilator settings as yesterday, and FiO2 is 50%, PEEP is 5, tidal volume is 500 assist control rate of 20.ABG today is marginal pO2 is 74 pCO2 of 55 pH of 7.42. WBC count is 17.5 hemoglobin is 12.3 sodium is better up to 130.renal profile is normal bicarb is 35.chest x-ray co ntinues to show cardiomegaly and bibasilar airspace disease with atelectasis and possible underlying pneumonia bilaterally. Small right-sided pleural effusion is noted Reevaluated today on 04/03/2019, patient remains in the ICU, intubated and mechanically ventilated. His ventilator settings are tidal volume is 500 rate is 20 FiO2 40% and PEEP is 5. ABG showed a pO2 of 111 pCO2 of 57 pH of 7.43 and this was on 50% FiO2. CBC showed WBC count of 16.8 hemoglobin is 12.6 electrolytes are normal renal profile is normal. Chest x-ray showed worsening bibasilar pneumonia and small pleural effusions. On 04/04/2019 patient seen in follow-up in intensive care unit. He is intubated, sedated on mechanical ventilator, current vent settings are as control mode of ventilation with a rate of 20, tidal M5 100, FiO2 40% and PEEP of 5, this morning blood gases show pO2 of 80, pCO2 53, and pH is 7.44. Maintenance IV fluids include 0.9 and a rate of 10, to prevent at a rate of 50 mics per kilo per minute. Antibiotic coverage in the form of Unasyn however sputum culture showed Enterobacter cloacae which was resistant to Unasyn, and antibiotic coverage was switched to Zosyn, patient is currently sedated, opens his eyes and follow simple commands, we'll proceed with spontaneous breathing trials with CPAP of 5 and pressure support of 5. This morning's blood work was reviewed, showing white blood cell count of 18.4, hemoglobin of 12.3, sodium was 135, potassium is 4.7, chloride is 97, CO2 34, BUN is 20 creatinine 0.57. Lung sounds are diminished, with a few scattered rhonchi, apparently patient still has significant amount of orotracheal secretions. On 04/05/2019 patient seen in follow-up in the intensive care unit, he is currently awake, he sedation is on hold, he is following simple commands, appears to be calm and not in any acute distress, he still intubated on mechanical ventilator, with the assist control mode of ventilation with a rate of 20, tidal vitamin 500, FiO2 of 40% and PEEP of 5 and this morning's blood gases showed pO2 of 93 pCO2 55 and pH of 7.44. Maintenance IV fluids at rate of 100, tube feedings of vital high-protein rate of 27 with a goal of 27. Today's chest x-ray has been reviewed showing improvement bibasilar aeration and improvement in the appearance of the right lower lobe infiltrate, residual small pleural effusions. We'll proceed with the DIS and a spontaneous breathing trials, yesterday patient was given a CPAP trial however patient failed, and post spontaneous breathing trial blood gases showed increase in his pCO2 of 10. he remains on Zosyn for antibiotic coverage, and culture showed Enterobacter cloacae, with culture showed no growth. His white count is trending down, down to 14.8, hemoglobin is 11.7, sodium is 137, potassium is 4.6, chloride is 96, CO2 is 37, B1 is 22, creatinine 0.61. She remains on IV Solu-Medrol, breathing treatments, and yesterday we gave him an extra dose of IV Lasix, he is in -975 ML negative fluid balance On 04/06/2019 patient seen in follow-up in the intensive care unit, he was successfully extubated yesterday on 04/05/2019, today he is awake and alert, appropriately, patient is on 5 L of oxygen per nasal cannula, and his pulse ox is 93-96%, he is afebrile. His cough is weak. Does not sound overly congested, lung sounds are diminished, no fever or chills, he continues on Zosyn for eviden ce of enterobacter cloacae in the sputum culture. Denies any worsening dyspnea, breathing seems to be comfortable, he is tolerating ice chips, he is awaiting bedside swallow evaluation by the speech therapist, however patient has been hypertensive stolid blood pressure in the 190s and diastolic in the 100s, and he has received multiple doses of labetalol. He has been restarted on his Coreg this morning, and if his blood pressure remains elevated we will start him on cleviprex. Today's chest x-ray has been reviewed showing interval extubation, and persistent cardiomegaly with mild central vascular congestion and associated patchy bibasilar atelectasis. On 04/07/2019 patient seen in follow-up in the intensive care unit, he was extubated on 04/05/2019, voiding extubation well, he is currently on 11 L per high flow nasal cannula, his pulse ox is 87-90%. Cough remains weak, nonproductive, tongue sounds are diminished, no significant wheezing or rhonchi appreciated on today's exam. He is afebrile, his sputum culture showed Enterobacter cloacae. Blood Culture showed no growth. Chest x-ray has been reviewed, showing persistent currently medically with mild central vessel congestion and patchy bibasilar atelectasis and/or infiltrates. STable in the appearance. Yesterday we gave the patient dose of IV Lasix, patient is in negative fluid balance over the last 24 hours, in -2932 mL. Less wheezy on today's exam, continues on nebulized bronchodilators and steroids. Patient deve loped hypertension yesterday, and he remains on Cleviprex drip currently at 4 mg per hour, and 0.9 normal saline at a rate of 10 ML per hour, he is also on transdermal Catapres No. 3. No chest pain today. On 04/08/2019 patient seen in follow-up in the intensive care unit, he is up in the recliner today, currently on 8 L per high flow nasal cannula, is maintaining stable oxygenation, his pulse ox is 90%, this could probably be weaned further, he is afebrile, hemodynamically patient is stable, Cleviprex drip has been discontinued, 0.9 normal saline at a rate of 20 ML per hour. Patient has been extubated for last 72 hours, tolerating extubation well, no signs of any respiratory distress, his cough is stronger on today's exam he is able to clear his throat, he is working on incentive spirometer with encouragement, achieving 750 ML on the today. Lung sounds are diminished, with some scattered rhonchi, no significant wheezing, is on Zosyn for Enterobacter cloacae in the sputum culture. Patient has been afebrile, patient will have a repeat swallow evaluation today and the possibility of modified barium swallow. No new chest x- ray On 04/11/2019 patient seen in follow-up on general medical floor, he sitting up in the recliner, in no acute distress, he is on 2 L of oxygen, he denies any respiratory distress, lung sounds are clear, diminished at the bases, no significant cough or congestion, patient has been afebrile, he states he has walked with physical therapy, tolerated activity well. Today's labs have been reviewed, showing white blood cell count of 19.5, hemoglobin 12.6, sodium is 136, electrolytes are within normal limits, BUN is 14 creatinine 0.65. Patient is on oral dose of Lasix 20 mg daily, he is on Zosyn and oral prednisone Objective - Vital Signs Vital signs: Vital Signs Temp 97.9 F 04/11/19 11:59 Pulse 78 04/11/19 16:20 Resp 16 04/11/19 16:08 BP 100/64 04/11/19 11:59 Pulse Ox 96 04/11/19 16:08 Intake & Output 04/10/19 04/11/19 04/11/19 18:59 06:59 18:59 Intake Total 2167 810 620 Output Total 253 3 Balance 9104 807 620 Weight 93 kg 93.5 kg Intake: IV 120 100 140 0.9 Normal Saline @ 10mls 120 40 /hr Piperacillin-Tazobactam 3 100 100 .375 gm In Sodium Chloride 0.9% 100 ml @ 25 mls/hr IVPB Q8HR [facility] Rx# :[id number] Intake, IV Titration 100 Amount Piperacillin-Tazobactam 3 100 .375 gm In Sodium Chloride 0.9% 100 ml @ 25 mls/hr IVPB Q8HR [facility] Rx# :[id number] Oral 1920 710 480 Tube Feeding 27 Output: Urine 250 3 Stool 3 Other: Voiding Method Urinal Urinal Urinal # Voids 4 1 1 ABP, PAP, CO, CI - Last Documented Arterial Blood Pressure 127/61 - Exam GENERAL EXAM: Alert, intubated, 63-year-old white male, comfortable, on 2 L of oxygen, with a pulse ox of 99%, comfortable in no apparent distress. HEAD: Normocephalic/atraumatic. EYES: Normal reaction of pupils, equal size. Conjunctiva pink, sclera white. NOSE: Clear with pink turbinates. THROAT: No erythema or exudates. NECK: No masses, no JVD, no thyroid enlargement, no adenopathy. CHEST: No chest wall deformity. Symmetrical expansion. LUNGS: Equal air entry with no scattered rhonchi, no wheeze, rhonchi or dul lness. CVS: Regular rate and rhythm, normal S1 and S2, no gallops, no murmurs, no rubs ABDOMEN: Soft, nontender. No hepatosplenomegaly, normal bowel sounds, no guarding or rigidity. EXTREMITIES: No clubbing, no edema, no cyanosis, 2+ pulses and upper and lower extremities. MUSCULOSKELETAL: Muscle strength and tone normal. SPINE: No scoliosis or deformity SKIN: No rashes CENTRAL NERVOUS SYSTEM: Alert and oriented -1. No focal deficits, tone is normal in all 4 extremities. - Labs CBC & Chem 7: 04/11/19 06:42 04/11/19 06:42 Labs: Abnormal Lab Results - Last 24 Hours (Table) 04/11/19 04/11/19 04/11/19 Range/Units 06:42 06:42 11:22 WBC 19.5 H (3.8-10.6) k/uL Hgb 12.6 L (13.0-17.5) gm/dL MCHC 30.8 L (31.0-37.0) g/dL Lymphocytes # (Manual) 10.53 H (1.0-4.8) k/uL Monocytes # (Manual) 1.95 H (0-1.0) k/uL Sodium 136 L (137-145) mmol/L Creatinine 0.65 L (0.66-1.25) mg/dL POC Glucose (mg/dL) 100 H (75-99) mg/dL Calcium 8.0 L (8.4-10.2) mg/dL Assessment and Plan Plan: Assessment: #1. Acute hypoxic and hypercapnic respiratory failure secondary to acute exacerbation of COPD and bibasilar pneumonia related to Enterobacter cloacae #2. Severe hyponatremia, possible SIADH, could be related to psychiatric medications, improved, responded well to treatment #3. Acute mental status changes, acute metabolic encephalopathy secondary to hyponatremia, resolved, and patient is back to baseline #4. History of type 2 diabetes mellitus #5. History of schizophrenia #6. History of nicotine dependence syndrome #7. Possible right lower lobe aspiration pneumonia #8. Hypertension, and patient remains on Cleviprex drip for blood pressure control Plan: Continue current medical treatment, patient is doing well, FiO2 down to 2 L, ambulate patient, increase activity as tolerated, patient has been afebrile, tone and perspective patient ischemic considered for discharge home on oral course of antibiotics, discontinue triple-lumen catheter. We'll need outpatient follow-up with Dr. Duggan in the office in one to 2 weeks. I performed a history & physical examination of the patient and discussed their management with my nurse practitioner, Iraida Major. I reviewed the nurse practitioner's note and agree with the documented findings and plan of care. Lung sounds are positive for a few scattered rhonchi. The findings and the impression was discussed with the patient. I attest to the documentation by the nurse practitioner. Time with Patient: Less than 30
[2019-04-11 17:21] LABS: Glucose,Whole Blood 124 mg/dL (75-99)
[2019-04-11 17:31] LABS: Hemoglobin A1C 5.7 % (4.0-6.0)
[2019-04-11 20:04] LABS: Glucose,Whole Blood 103 mg/dL (75-99)
[2019-04-11] MEDS: ATORVASTATIN 40 MG TAB PO SCH (20:30)
[2019-04-12] MEDS: SODIUM CHLORIDE 0.9% 1,000 ML IV SCH (06:04)
[2019-04-12 06:52] LABS: Glucose,Whole Blood 87 mg/dL (75-99)
[2019-04-12] MEDS: INSULIN ASPART (NovoLOG) 100 UNIT/ML VIAL SQ SCH ×4 (06:57→21:37)
[2019-04-12] MEDS: FUROSEMIDE 20 MG TAB PO SCH (07:36)
[2019-04-12] MEDS: CARVEDILOL 6.25 MG TAB PO SCH ×2 (07:36→16:57)
[2019-04-12] MEDS: ENOXAPARIN 40 MG/0.4 ML SYRINGE SQ SCH (07:36)
[2019-04-12] MEDS: PIPERACILLIN-TAZOBACTAM 3.375 GM in SODIUM CHLORIDE 0.9% 100 ML IVPB SCH ×2 (07:36→16:57)
[2019-04-12] MEDS: ASPIRIN 325 MG TAB PO SCH (07:36)
[2019-04-12] MEDS: predniSONE 20 MG TAB PO SCH (07:36)
[2019-04-12] MEDS: PANTOPRAZOLE 40 MG/10 ML VIAL IV SCH (07:37)
[2019-04-12] MEDS: IPRATROPIUM-ALBUTEROL 3 ML NEB INHALATION SCH ×4 (09:47→20:03)
[2019-04-12] MEDS: FORMOTEROL FUMARATE 20 MCG/2 ML NEBU INHALATION SCH ×2 (09:48→20:04)
[2019-04-12] MEDS: BUDESONIDE 1 MG/2 ML NEBU INHALATION SCH ×2 (09:48→20:04)
[2019-04-12 10:01] LABS: African American GFR (CKD) >90 (>60 ml/min/1.73 sqM); Anion Gap 6 mmol/L; Blood Urea Nitrogen 13 mg/dL (9-20); Calcium 8.1 mg/dL (8.4-10.2); Carbon Dioxide 27 mmol/L (22-30); Chloride 103 mmol/L (98-107); Glucose 108 mg/dL (74-99); Non-African American GFR(CKD) >90 (>60 ml/min/1.73 sqM); Potassium 4.2 mmol/L (3.5-5.1); Sodium 136 mmol/L (137-145)
[2019-04-12 10:04] LABS: HCT 41.9 % (39.0-53.0); HGB 13.1 gm/dL (13.0-17.5); MCH 28.5 pg (25.0-35.0); MCHC 31.2 g/dL (31.0-37.0); MCV 91.3 fL (80.0-100.0); Mean Platelet Volume 7.5; Platelet Count 284 k/uL (150-450); RBC 4.59 m/uL (4.30-5.90); RDW 13.2 % (11.5-15.5)
--- NOTE | 2019-04-12 10:45 | P.PN ---
Subjective Progress Note Date: 04/12/19 Principal diagnosis: Hyponatremia and metabolic encephalopathy, acute hypercapnic and hypoxemic respiratory failure This is a 63-year-old white male, poor historian, known history of schizophrenia, hypertension, patient is on multiple psychiatric medications, presented to the ER with mostly mental status change and worsening confusion. Patient was found to have extremely low sodium of 111, and his chest x-ray is suggestive of right lower lobe aspiration pneumonia. Patient was noted to have leukocytosis, he was noted to be hypovolemic clinically, and patient was initially started on 3% saline his repeat serum sodium today is 117. Nephrology has the patient on consultation, urine and serum osmolalities are pending. Considering the patient was admitted to the ICU and he was placed on 3% hypertonic saline, I was asked to see him on consultation. However upon my eval uation of the patient, he seems to be confused, in no form of respiratory distress, and no further information could be obtained from the patient himself. No family members at bedside. Reevaluated today on 03/31/2019, patient remains in the ICU, his pulmonary status is rather marginal. Patient is not doing well with incentive spirometry, and he does not follow instructions as far as deep coughing and deep breathing and clearing secretions. He does sound wet, and crackly, but the patient does not cough to clear his secretions. Chest x-ray showed mild pulmonary vascular congestion, and right lower lobe atelectasis, possibly right sided pneumonia. Sodium today is up to 121. His renal profile is normal BUN is 10 and creatinine 0.57. WBC count is 20.1. Remains on antibiotics for presumptive aspiration. Patient was seen by nephrology yesterday, and he was felt to have hypovolemic hyponatremia. Patient continues to have a health and safety specialist at bedside. And he continues to be confused, and lethargic. At times he tries to get out of bed, and he is not coherent. Reevaluated today on 04/01/2019, patient deteriorated yesterday significantly. Around 5:00 yesterday, patient developed hypoxic and hypercapnic respiratory failure, I happened to be in the ICU at the time, patient was on nonrebreather mask, and when I assessed him, he was extremely difficult to arouse. Could not be aroused, and he had significant amount of wheezing. And he was using his accessory muscles to breathe. Hence intubated the patient immediately, placed on mechanical ventilation, and placed on propofol overnight. He was placed on bronchodilators, steroids. And reevaluated today. Chest x-ray is showing improvement in his right lower lobe pneumonia and atelectasis. His ventilator settings are assist control rate of 20, tidal volume of 500, FiO2 is 50% and PEEP of 5. Propofol is at 50 mcg/kg/m. Not requiring any pressors. ABG this morning showed a pO2 of 101 pCO2 of 43 pH of 7.47. Sodium is up to 127 today. WBC count is 17.3 hemoglobin is 12.5. Renal functioning is normal. Blood cultures are negative so far. Sputum cultures are pending. Patient remains on Unasyn, bronchodilators, Lovenox, methylprednisolone for his COPD exacerbation, he is also on GI and DVT prophylaxis. Patient is on Lovenox. Reevaluated today on 04/02/2019, patient remains intubated, mechanically ventilated.patient is on the same ventilator settings as yesterday, and FiO2 is 50%, PEEP is 5, tidal volume is 500 assist control rate of 20.ABG today is marginal pO2 is 74 pCO2 of 55 pH of 7.42. WBC count is 17.5 hemoglobin is 12.3 sodium is better up to 130.renal profile is normal bicarb is 35.chest x-ray co ntinues to show cardiomegaly and bibasilar airspace disease with atelectasis and possible underlying pneumonia bilaterally. Small right-sided pleural effusion is noted Reevaluated today on 04/03/2019, patient remains in the ICU, intubated and mechanically ventilated. His ventilator settings are tidal volume is 500 rate is 20 FiO2 40% and PEEP is 5. ABG showed a pO2 of 111 pCO2 of 57 pH of 7.43 and this was on 50% FiO2. CBC showed WBC count of 16.8 hemoglobin is 12.6 electrolytes are normal renal profile is normal. Chest x-ray showed worsening bibasilar pneumonia and small pleural effusions. On 04/04/2019 patient seen in follow-up in intensive care unit. He is intubated, sedated on mechanical ventilator, current vent settings are as control mode of ventilation with a rate of 20, tidal M5 100, FiO2 40% and PEEP of 5, this morning blood gases show pO2 of 80, pCO2 53, and pH is 7.44. Maintenance IV fluids include 0.9 and a rate of 10, to prevent at a rate of 50 mics per kilo per minute. Antibiotic coverage in the form of Unasyn however sputum culture showed Enterobacter cloacae which was resistant to Unasyn, and antibiotic coverage was switched to Zosyn, patient is currently sedated, opens his eyes and follow simple commands, we'll proceed with spontaneous breathing trials with CPAP of 5 and pressure support of 5. This morning's blood work was reviewed, showing white blood cell count of 18.4, hemoglobin of 12.3, sodium was 135, potassium is 4.7, chloride is 97, CO2 34, BUN is 20 creatinine 0.57. Lung sounds are diminished, with a few scattered rhonchi, apparently patient still has significant amount of orotracheal secretions. On 04/05/2019 patient seen in follow-up in the intensive care unit, he is currently awake, he sedation is on hold, he is following simple commands, appears to be calm and not in any acute distress, he still intubated on mechanical ventilator, with the assist control mode of ventilation with a rate of 20, tidal vitamin 500, FiO2 of 40% and PEEP of 5 and this morning's blood gases showed pO2 of 93 pCO2 55 and pH of 7.44. Maintenance IV fluids at rate of 100, tube feedings of vital high-protein rate of 27 with a goal of 27. Today's chest x-ray has been reviewed showing improvement bibasilar aeration and improvement in the appearance of the right lower lobe infiltrate, residual small pleural effusions. We'll proceed with the DIS and a spontaneous breathing trials, yesterday patient was given a CPAP trial however patient failed, and post spontaneous breathing trial blood gases showed increase in his pCO2 of 10. he remains on Zosyn for antibiotic coverage, and culture showed Enterobacter cloacae, with culture showed no growth. His white count is trending down, down to 14.8, hemoglobin is 11.7, sodium is 137, potassium is 4.6, chloride is 96, CO2 is 37, B1 is 22, creatinine 0.61. She remains on IV Solu-Medrol, breathing treatments, and yesterday we gave him an extra dose of IV Lasix, he is in -975 ML negative fluid balance On 04/06/2019 patient seen in follow-up in the intensive care unit, he was successfully extubated yesterday on 04/05/2019, today he is awake and alert, appropriately, patient is on 5 L of oxygen per nasal cannula, and his pulse ox is 93-96%, he is afebrile. His cough is weak. Does not sound overly congested, lung sounds are diminished, no fever or chills, he continues on Zosyn for eviden ce of enterobacter cloacae in the sputum culture. Denies any worsening dyspnea, breathing seems to be comfortable, he is tolerating ice chips, he is awaiting bedside swallow evaluation by the speech therapist, however patient has been hypertensive stolid blood pressure in the 190s and diastolic in the 100s, and he has received multiple doses of labetalol. He has been restarted on his Coreg this morning, and if his blood pressure remains elevated we will start him on cleviprex. Today's chest x-ray has been reviewed showing interval extubation, and persistent cardiomegaly with mild central vascular congestion and associated patchy bibasilar atelectasis. On 04/07/2019 patient seen in follow-up in the intensive care unit, he was extubated on 04/05/2019, voiding extubation well, he is currently on 11 L per high flow nasal cannula, his pulse ox is 87-90%. Cough remains weak, nonproductive, tongue sounds are diminished, no significant wheezing or rhonchi appreciated on today's exam. He is afebrile, his sputum culture showed Enterobacter cloacae. Blood Culture showed no growth. Chest x-ray has been reviewed, showing persistent currently medically with mild central vessel congestion and patchy bibasilar atelectasis and/or infiltrates. STable in the appearance. Yesterday we gave the patient dose of IV Lasix, patient is in negative fluid balance over the last 24 hours, in -2932 mL. Less wheezy on today's exam, continues on nebulized bronchodilators and steroids. Patient deve loped hypertension yesterday, and he remains on Cleviprex drip currently at 4 mg per hour, and 0.9 normal saline at a rate of 10 ML per hour, he is also on transdermal Catapres No. 3. No chest pain today. On 04/08/2019 patient seen in follow-up in the intensive care unit, he is up in the recliner today, currently on 8 L per high flow nasal cannula, is maintaining stable oxygenation, his pulse ox is 90%, this could probably be weaned further, he is afebrile, hemodynamically patient is stable, Cleviprex drip has been discontinued, 0.9 normal saline at a rate of 20 ML per hour. Patient has been extubated for last 72 hours, tolerating extubation well, no signs of any respiratory distress, his cough is stronger on today's exam he is able to clear his throat, he is working on incentive spirometer with encouragement, achieving 750 ML on the today. Lung sounds are diminished, with some scattered rhonchi, no significant wheezing, is on Zosyn for Enterobacter cloacae in the sputum culture. Patient has been afebrile, patient will have a repeat swallow evaluation today and the possibility of modified barium swallow. No new chest x- ray On 04/11/2019 patient seen in follow-up on general medical floor, he sitting up in the recliner, in no acute distress, he is on 2 L of oxygen, he denies any respiratory distress, lung sounds are clear, diminished at the bases, no significant cough or congestion, patient has been afebrile, he states he has walked with physical therapy, tolerated activity well. Today's labs have been reviewed, showing white blood cell count of 19.5, hemoglobin 12.6, sodium is 136, electrolytes are within normal limits, BUN is 14 creatinine 0.65. Patient is on oral dose of Lasix 20 mg daily, he is on Zosyn and oral prednisone. On 04/12/2019 patient seen in follow-up. Doing well, currently on 2 L of oxygen and the pulse ox is 100%. He is sitting up in the recliner, he has been going back and forth from the chair to the bed, physical therapy is working with the patient. Denies any difficulty breathing, no fever or chills, patient is being treated for Enterobacter pneumonia currently on IV Zosyn. Hemodynamically stable. Lung sounds are positive for minimal end expiratory wheezes, good air entry bilaterally, no significant cough or congestion, tolerating oral intake, appetite is fair, he is working on incentive spirometer, achieving 1500 on the today. Objective - Vital Signs Vital signs: Vital Signs Temp 97.9 F 04/12/19 05:00 Pulse 70 04/12/19 10:13 Resp 18 04/12/19 05:00 BP 157/92 04/12/19 05:00 Pulse Ox 100 04/12/19 05:00 Intake & Output 04/11/19 04/12/19 04/12/19 18:59 06:59 18:59 Intake Total 620 100 Output Total 375 1 Balance 245 99 Weight 93.5 kg Intake: IV 140 100 0.9 Normal Saline @ 10mls 40 /hr Piperacillin-Tazobactam 3 100 100 .375 gm In Sodium Chloride 0.9% 100 ml @ 25 mls/hr IVPB Q8HR [facility] Rx# :[id number] Oral 480 Output: Urine 375 Stool 1 Other: Voiding Method Urinal Urinal Urinal # Voids 1 3 ABP, PAP, CO, CI - Last Documented Arterial Blood Pressure 127/61 - Exam GENERAL EXAM: Alert, intubated, 63-year-old white male, comfortable, on 2 L of oxygen, with a pulse ox of 99%, comfortable in no apparent distress. HEAD: Normocephalic/atraumatic. EYES: Normal reaction of pupils, equal size. Conjunctiva pink, sclera white. NOSE: Clear with pink turbinates. THROAT: No erythema or exudates. NECK: No masses, no JVD, no thyroid enlargement, no adenopathy. CHEST: No chest wall deformity. Symmetrical expansion. LUNGS: Equal air entry with no scattered rhonchi, no wheeze, rhonchi or dullne ss. CVS: Regular rate and rhythm, normal S1 and S2, no gallops, no murmurs, no rubs ABDOMEN: Soft, nontender. No hepatosplenomegaly, normal bowel sounds, no guarding or rigidity. EXTREMITIES: No clubbing, no edema, no cyanosis, 2+ pulses and upper and lower extremities. MUSCULOSKELETAL: Muscle strength and tone normal. SPINE: No scoliosis or deformity SKIN: No rashes CENTRAL NERVOUS SYSTEM: Alert and oriented -1. No focal deficits, tone is normal in all 4 extremities. - Labs CBC & Chem 7: 04/12/19 09:03 04/12/19 09:03 Labs: Abnormal Lab Results - Last 24 Hours (Table) 04/11/19 04/11/19 04/11/19 Range/Units 06:42 11:22 17:20 WBC (3.8-10.6) k/uL Lymphocytes # (Manual) 10.53 H (1.0-4.8) k/uL Monocytes # (Manual) 1.95 H (0-1.0) k/uL Sodium (137-145) mmol/L Glucose (74-99) mg/dL POC Glucose (mg/dL) 100 H 124 H (75-99) mg/dL Calcium (8.4-10.2) mg/dL 04/11/19 04/12/19 04/12/19 Range/Units 20:02 09:03 09:03 WBC 19.0 H (3.8-10.6) k/uL Lymphocytes # (Manual) (1.0-4.8) k/uL Monocytes # (Manual) (0-1.0) k/uL Sodium 136 L (137-145) mmol/L Glucose 108 H (74-99) mg/dL POC Glucose (mg/dL) 103 H (75-99) mg/dL Calcium 8.1 L (8.4-10.2) mg/dL Assessment and Plan Plan: Assessment: #1. Acute hypoxic and hypercapnic respiratory failure secondary to acute exacerbation of COPD and bibasilar pneumonia related to Enterobacter cloacae #2. Severe hyponatremia, possible SIADH, could be related to psychiatric medications, improved, responded well to treatment #3. Acute mental status changes, acute metabolic encephalopathy secondary to hyponatremia, resolved, and patient is back to baseline #4. History of type 2 diabetes mellitus #5. History of schizophrenia #6. History of nicotine dependence syndrome #7. Possible right lower lobe aspiration pneumonia #8. Hypertension, and patient remains on Cleviprex drip for blood pressure control Plan: Patient is doing well, hemodynamically stable, FiO2 down to 2 L, he is maintaining good O2 saturations, he is working on incentive spirometer, no fever or chills, patient has received several days of Zosyn, he is clinically stable for discharge, discharge planning is in progress for discharge to the [facility], patient can be discharged on either Cipro or Levaquin, and prednisone taper. Will need outpatient follow-up with Dr. Miranda in the office in one to 2 weeks I performed a history & physical examination of the patient and discussed their management with my nurse practitioner, Iraida Major. I reviewed the nurse practitioner's note and agree with the documented findings and plan of care. Lung sounds are positive for a few scattered rhonchi. The findings and the impression was discussed with the patient. I attest to the documentation by the nurse practitioner. Time with Patient: Less than 30
[2019-04-12 11:14] LABS: Glucose,Whole Blood 103 mg/dL (75-99)
[2019-04-12 11:26] LABS: Lymphocytes # (M) 8.74 k/uL (1.0-4.8); Monocytes # (M) 0.38 k/uL (0-1.0); Neutrophils # (M) 9.88 k/uL (1.3-7.7); Neutrophils % (M) 52 %; Nucleated Red Blood Cells 0 /100 WBC (0-0); Total Cells Counted 100
--- NOTE | 2019-04-12 13:52 | P.PN ---
Subjective Progress Note Date: 04/12/19 Principal diagnosis: 63-year-old male with known history of hypertension schizophrenia came in completely confused, altered mental status. patient is unable to provide any history to me patient as he is excessively drowsy but able to wake up with verbal stimuli. But unable to provide any history. Patient is found to be severely hyponatremic also found to have aspiration pneumonia. Patient does have significant leukocytosis. Patient in the past was treated for hypovolemic as was hypovolemic hyponatremia. Patient serum sodium is extremely low at 113 on 3% saline to 117. Nephrology is following the patient I did order urine osmolality, serum osmolality urine random sodium urine didn't random creatinine urinary uric acid although these labs will not be reliable because as patient is already on saline now. 03/31/2019 Patient is currently in the ICU being closely monitored with a food safety officer at the bedside. Patient continues to be confused and quite lethargic. Per sitter, patient occasionally tries to get up out of the bed but is not coherent as to what he is doing. Patient continues to fall asleep when talking with the patient but is arousable to voice. Current sodium is 121. Nephrology is following. White blood count has also improved slightly and is trending down and is currently 20.1. Today's chest x-ray shows possible underlying mild pulmonary vascular congestion with the right hilar masslike prominence and persistent right basilar obesity. 04/01/2019 Patient currently remains in the ICU and is being closely monitored and patient was intubated last night as he continued to deteriorate and developed hypoxic and hypercapnic respiratory failure. Patient was very lethargic and unarousable and patient was intubated with Dr. Miranda. Currently patient is sedated and seems to be much more comfortable. Chest x-ray today shows some improvement of the right lower lobe pneumonia. Patient's sodium is currently 126 and 3% normal saline has been discontinued. Nephrology is following. Sputum cultures thus far showing gram-negative bacilli and patient is currently on Unasyn and will continue at this time. 04/02/2019 Patient remains intubated patient remains hypercapnic sick and hypercapnic because of which the activation was not attempted today. Patient remains on pressor support patient is on minimal vent settings at this time patient on 50 mL of normal saline as it was believed that patient has uremic hyponatremia improved with the 3% saline and now patient has some metabolic alkalosis partly because of the respiratory compensation and the there may be a competent of the contraction alkalosis. His serum sodium is 130on admission serum sodium is 114. 04/03/2019 Patient's serum sodium did improve patient remains intubated patient will be on sedation vacation today no plans on weaning trial today as per pulmonology. 04/04/2019 Patient is sitting up and appears to be in no acute distress. Patient is currently being closely monitored in the ICU and will continue at this time. Patient remains ventilated and undergoing trial breathing and not tolerating well at this time. Patient will continue on the vent at this time. Pulmonary is following closely. Sputum culture results have resulted with enterobacter cloacae and IV antibiotics and been adjusted to Zosyn and will continue at this time. Patient remains on tube feedings and tolerating well thus far. Will continue to monitor closely. Serum sodium is 135 today. Willl discontinue IV fluids. 04/05/2019 Patient is sitting up and currently remains in the ICU being closely monitored. No acute overnight issues. Patient is awake and was recently just extubated with Dr. Syed and tolerating well thus far. Patient is currently on 5 L of oxygen via nasal cannula with oxygen saturations in the low 90s. Patient is responding appropriately to commands. Sitter is at the bedside for safety as the patient attempts to get out of bed at times. Awaiting to have a swallow eval done with speech possibly today or tomorrow as he is currently nothing by mouth. Repeat chest x-ray today shows stable findings and continues with some possible mild venous congestion. Patient will be given a dose of IV Lasix again. Patient is currently off IV fluids and will continue at this time. 04/06/2019 Patient is sitting up in currently remains in the ICU being closely monitored. Patient is currently requiring high flow oxygen via nasal cannula at 15 L. Pulmonary is following closely. Patient is also currently on Cleviprex for blood pressure control if he was having elevated blood pressures throughout the night and this morning. Patient is able to respond appropriately to simple commands but continues to not talk much. Patient is hard of hearing. Patient underwent a swallow eval and failed and will continue nothing by mouth with just ice chips at this time. Repeat chest x-ray shows no real improvement. Patient will be started on steroids and was given another dose of IV Lasix. 04/07/2019 Patient is sitting up in the chair and appears to be in no acute distress. Patient is currently being closely monitored in the ICU as he presently remains on a Cleviprex drip for tighter blood pressure control. Catapres patch was added. Patient currently remains nothing by mouth except small amounts of ice chips as he continues to fail swallow eval's. May need a modified barium swallow. Patient continues to receive daily doses of IV Lasix as repeat chest x-rays continue to show vascular congestion. Patient will be started on a dose of oral Lasix. Case management and social work are following and awaiting for guardianship that is expected to occur this Thursday. Will continue to monitor closely. 04/08/2019 Patient is sitting up in the chair and appears to be in no acute distress. Patient is currently being monitored in the ICU and awaiting a [facility] bed to become available for transfer. Patient is off the Cleviprex drip and blood pressure is more stabilized with a Catapres patch. Patient underwent a modified barium swallow and patient will be started on dysphagia 2 ground diet with thin liquids and no straws and will continue aspiration precautions and assistance with feeding. No aspiration noted on the swallow eval. Patient currently remains on high flow oxygen via nasal cannula and is now down to 9 L. Will continue to monitor closely. Possible guardianship this Thursday. 04/09/2019 Patient is currently awake alert. No acute distress. Currently saturating at 90% on 6 L high flow oxygen with another cannula. Patient is being continued on DuoNeb's, Pulmicort, Perforomist and oral prednisone and antibiotics in the form of Zosyn. Patient is being continued on dysphagia level II diet and aspiration precautions. Patient had right facial droop, strokelike symptoms. Patient underwent CT head showed possible left-sided lacunar infarct. Patient was seen by neurology and will stroke workup was ordered. MRI of the brain, carotid duplex, 2-D echocardiogram and lipid panel was ordered. Patient was started on aspirin 325 mg daily. Pulmonary and neurology is following. 04/10/2019 Patient is currently resting in the bed comfortably. Awake alert and oriented. No acute distress. Patient is otherwise lethargic at baseline. No complaints of chest pain or worsening short of breath. Saturating well on 2 L oxygen via nasal cannula. Laboratory data showed WBC count 21, hemoglobin 12.9 and creatinine 0.60. Patient is being continued on oral prednisone, DuoNeb's and Pulmicort and Perforomist. Antibiotics in the form of Zosyn. Pulmonary is on board. Patient is undergoing stroke workup as above. 04/11/2019 Patient is sitting up in the chair and appears to be in no acute distress. Currently patient denies any chest pain, shortness of breath, or palpitations. Patient is afebrile. Patient denies any nausea or vomiting and has been tolerating diet. Patient is currently on 2 L of oxygen via nasal cannula and saturating well. Pulmonary is following. Neurology evaluated the patient. She underwent an MRI of the brain showing pansinusitis and mastoiditis with age- related atrophy and chronic small vessel ischemia with no restricted diffusion to suggest subacute ischemia. Public guardianship was obtained today and case management and social work are following for possible placement at [facility]. 04/12/2019 Patient is sitting up in the chair and has just completed breakfast. Patient has been working with physical therapy and currently awaiting for possible placement at [facility] for continued PT/OT therapy. Patient currently remains on oral prednisone and will continue at this time. Currently patient denies any chest pain, worsening shortness of breath, or palpitations. Patient is afebrile. Patient denies any nausea or vomiting and has been tolerating diet. Patient is currently saturating well on 2 L of oxygen via nasal cannula. Will discontinue Catapres patch as patient has been resumed on Coreg and will continue to monitor vital signs closely. Current sodium today is 136. Objective - Vital Signs Vital signs: Vital Signs Temp 97.9 F 04/12/19 05:00 Pulse 70 04/12/19 10:13 Resp 18 04/12/19 05:00 BP 157/92 04/12/19 05:00 Pulse Ox 100 04/12/19 05:00 Intake & Output 04/11/19 04/12/19 04/12/19 18:59 06:59 18:59 Intake Total 620 100 Output Total 375 1 Balance 245 99 Weight 93.5 kg Intake: IV 140 100 0.9 Normal Saline @ 10mls 40 /hr Piperacillin-Tazobactam 3 100 100 .375 gm In Sodium Chloride 0.9% 100 ml @ 25 mls/hr IVPB Q8HR [facility] Rx# :[id number] Oral 480 Output: Urine 375 Stool 1 Other: Voiding Method Urinal Urinal Urinal # Voids 1 3 ABP, PAP, CO, CI - Last Documented Arterial Blood Pressure 127/61 - Exam GENERAL: 63-year-old male, awake and alert and sitting up in the chair and responding to simple commands. Patient is currently on 2 L of oxygen via nasal cannula HEENT: Pupils are round and equally reacting to light. EOMI. No scleral icterus. No conjunctival pallor. Normocephalic, atraumatic. No pharyngeal erythema. No thyromegaly. CARDIOVASCULAR: S1 and S2 present. No murmurs, rubs, or gallops. PULMONARY: Lung sounds diminished at the bases with a few expiratory wheezes noted ABDOMEN: Soft, obese, nontender, nondistended, normoactive bowel sounds. No palpable organomegaly. MUSCULOSKELETAL: No joint swelling or deformity. EXTREMITIES: No cyanosis, clubbing, or pedal edema. NEUROLOGICAL: Alert and awake, cooperative SKIN: No rashes. Left index finger noted with scabs status post recent abscess and laceration, old dressing of left index finger was removed and wound was cleansed with no signs of redness, swelling, or drainage noted. - Labs CBC & Chem 7: 04/12/19 09:03 04/12/19 09:03 Labs: Abnormal Lab Results - Last 24 Hours (Table) 04/11/19 04/11/19 04/11/19 Range/Units 06:42 11:22 17:20 WBC (3.8-10.6) k/uL Lymphocytes # (Manual) 10.53 H (1.0-4.8) k/uL Monocytes # (Manual) 1.95 H (0-1.0) k/uL Sodium (137-145) mmol/L Glucose (74-99) mg/dL POC Glucose (mg/dL) 100 H 124 H (75-99) mg/dL Calcium (8.4-10.2) mg/dL 04/11/19 04/12/19 04/12/19 Range/Units 20:02 09:03 09:03 WBC 19.0 H (3.8-10.6) k/uL Lymphocytes # (Manual) (1.0-4.8) k/uL Monocytes # (Manual) (0-1.0) k/uL Sodium 136 L (137-145) mmol/L Glucose 108 H (74-99) mg/dL POC Glucose (mg/dL) 103 H (75-99) mg/dL Calcium 8.1 L (8.4-10.2) mg/dL 04/12/19 Range/Units 11:12 WBC (3.8-10.6) k/uL Lymphocytes # (Manual) (1.0-4.8) k/uL Monocytes # (Manual) (0-1.0) k/uL Sodium (137-145) mmol/L Glucose (74-99) mg/dL POC Glucose (mg/dL) 103 H (75-99) mg/dL Calcium (8.4-10.2) mg/dL Assessment and Plan Assessment: -Acute hypoxic and hypercapnic respiratory failure syndrome with COPD e xacerbation and may be a right lower lobe pneumonia and aspiration pneumonia because of which the patient is on Zosyn at this time. -Acute right-sided facial weakness due to acute CVA with Lacunar far. resolved now. Neurology evaluated the patient and has signed off at this time. MRI was done and shows pansinusitis and mastoiditis with age-related atrophy and chronic small vessel ischemia. --Severe hyponatremia: Multifactorial there may be a component of psychogenic polydipsia, SIADH from medications as well as hypovolemia. 3% saline has been discontinued there is a component of hypervolemia because of which patient was started on IV fluids. Sodium level improved now. DC'd IV fluids. -Mediastinal lymphadenopathy which need to be followed as an outpatient once he is stable with repeat CAT scan. -Metabolic encephalopathy secondary to hyponatremia -COPD with acute exacerbation patient systemic steroids -Type 2 diabetes mellitus -Schizophrenia -Nicotine abuse Plan: Continue current medications, management, and symptomatic treatment. Multiple medical consultations following. Catapres patch was discontinued as patient was resumed on Coreg and is able to tolerate by mouth meds. PT/OT following. Will continue to monitor vital signs and labs closely. Continue with prednisone and breathing treatments. Will repeat a.m. labs. Further recommendations to follow. Case management and social work are following as they have obtained public guardianship today and working on possible placement at [facility]. Possible discharge in 24-48 hours.
[2019-04-12 17:01] LABS: Glucose,Whole Blood 105 mg/dL (75-99)
[2019-04-12 20:14] LABS: Glucose,Whole Blood 135 mg/dL (75-99)
[2019-04-12] MEDS: ATORVASTATIN 40 MG TAB PO SCH (21:37)
[2019-04-13] MEDS: PIPERACILLIN-TAZOBACTAM 3.375 GM in SODIUM CHLORIDE 0.9% 100 ML IVPB SCH ×2 (00:05→08:22)
[2019-04-13 06:59] LABS: Glucose,Whole Blood 90 mg/dL (75-99)
[2019-04-13] MEDS: INSULIN ASPART (NovoLOG) 100 UNIT/ML VIAL SQ SCH ×2 (07:28→12:06)
[2019-04-13] MEDS: IPRATROPIUM-ALBUTEROL 3 ML NEB INHALATION SCH ×2 (07:28→11:13)
[2019-04-13] MEDS: BUDESONIDE 1 MG/2 ML NEBU INHALATION SCH (07:29)
[2019-04-13] MEDS: FORMOTEROL FUMARATE 20 MCG/2 ML NEBU INHALATION SCH (07:29)
[2019-04-13] MEDS ORDERED: PANTOPRAZOLE 40 MG TABLET PO SCH (09:00)
[2019-04-13] MEDS: predniSONE 20 MG TAB PO SCH (09:47)
[2019-04-13] MEDS: ENOXAPARIN 40 MG/0.4 ML SYRINGE SQ SCH (09:47)
[2019-04-13] MEDS: CARVEDILOL 6.25 MG TAB PO SCH ×2 (09:47→09:53)
[2019-04-13] MEDS: FUROSEMIDE 20 MG TAB PO SCH (09:47)
[2019-04-13] MEDS: ASPIRIN 325 MG TAB PO SCH (09:48)
--- NOTE | 2019-04-13 10:18 | P.DS ---
Providers Date of admission: 03/29/19 16:54 Expected date of discharge: 04/13/19 Attending physician: Chandan Martinez MD Consults: 03/29/19 16:54 Consult Physician Stat Consulting Provider: Shasta Miranda Consult Reason/Comments: critical care Do you want consulting provider notified?: Already Contacted Consult Physician Urgent Consulting Provider: Felicity Garcia Consult Reason/Comments: Hyponatremia Do you want consulting provider notified?: Yes 04/08/19 18:08 Consult Physician Stat Consulting Provider: Ca Bloom Consult Reason/Comments: possible stroke Do you want consulting provider notified?: Yes Primary care physician: Stated None Hospital Course: Final diagnosis -Acute hypoxic and hypercapnic respiratory failure syndrome with COPD exacerbation and may be a right lower lobe pneumonia and aspiration pneumonia -Acute right-sided facial weakness due to acute CVA with Lacunar infarct. -Pansinusitis/mastoiditis as seen on CT and MRI -Severe hyponatremia: Multifactorial there may be a component of psychogenic polydipsia, SIADH from medications as well as hypovolemia. -Mediastinal lymphadenopathy which need to be followed as an outpatient once he is stable with repeat CAT scan. -Metabolic encephalopathy secondary to hyponatremia -COPD with acute exacerbation -Type 2 diabetes mellitus -Schizophrenia -Nicotine abuse Discharge disposition Patient is being discharged in a stable condition with guarded prognosis to [facility] continued strength and mobility with physical therapy. Patient will continue on a short course of oral antibiotics in the form of Cipro for the next 4 days and then may discontinue. Patient will also continue on a prednisone taper upon discharge. Total time taken is 35 minutes. History of present illness 63-year-old male with known history of hypertension schizophrenia came in completely confused, altered mental status. patient is unable to provide any history to me patient as he is excessively drowsy but able to wake up with verbal stimuli. But unable to provide any history. Patient is found to be severely hyponatremic also found to have aspiration pneumonia. Patient does have significant leukocytosis. Patient in the past was treated for hypovolemic as was hypovolemic hyponatremia. Patient serum sodium is extremely low at 113 on 3% saline to 117. Nephrology is following the patient I did order urine osmolality, serum osmolality urine random sodium urine didn't random creatinine urinary uric acid although these labs will not be reliable because as patient is already on saline now. 03/31/2019 Patient is currently in the ICU being closely monitored with a safety patrol officer at the bedside. Patient continues to be confused and quite lethargic. Per sitter, patient occasionally tries to get up out of the bed but is not coherent as to what he is doing. Patient continues to fall asleep when talking with the patient but is arousable to voice. Current sodium is 121. Nephrology is follow ing. White blood count has also improved slightly and is trending down and is currently 20.1. Today's chest x-ray shows possible underlying mild pulmonary vascular congestion with the right hilar masslike prominence and persistent right basilar obesity. 04/01/2019 Patient currently remains in the ICU and is being closely monitored and patient was intubated last night as he continued to deteriorate and developed hypoxic and hypercapnic respiratory failure. Patient was very lethargic and unarousable and patient was intubated with Dr. Miranda. Currently patient is sedated and seems to be much more comfortable. Chest x-ray today shows some improvement of the right lower lobe pneumonia. Patient's sodium is currently 126 and 3% normal saline has been discontinued. Nephrology is following. Sputum cultures thus far showing gram-negative bacilli and patient is currently on Unasyn and will continue at this time. 04/02/2019 Patient remains intubated patient remains hypercapnic sick and hypercapnic because of which the activation was not attempted today. Patient remains on pressor support patient is on minimal vent settings at this time patient on 50 mL of normal saline as it was believed that patient has uremic hyponatremia improved with the 3% saline and now patient has some metabolic alkalosis partly because of the respiratory compensation and the there may be a competent of the contraction alkalosis. His serum sodium is 130on admission serum sodium is 114. 04/03/2019 Patient's serum sodium did improve patient remains intubated patient will be on sedation vacation today no plans on weaning trial today as per pulmonology. 04/04/2019 Patient is sitting up and appears to be in no acute distress. Patient is currently being closely monitored in the ICU and will continue at this time. Patient remains ventilated and undergoing trial breathing and not tolerating well at this time. Patient will continue on the vent at this time. Pulmonary is following closely. Sputum culture results have resulted with enterobacter cloacae and IV antibiotics and been adjusted to Zosyn and will continue at this time. Patient remains on tube feedings and tolerating well thus far. Will continue to monitor closely. Serum sodium is 135 today. Willl discontinue IV fluids. 04/05/2019 Patient is sitting up and currently remains in the ICU being closely monitored. No acute overnight issues. Patient is awake and was recently just extubated with Dr. Syed and tolerating well thus far. Patient is currently on 5 L of oxygen via nasal cannula with oxygen saturations in the low 90s. Patient is responding appropriately to commands. Sitter is at the bedside for safety as the patient attempts to get out of bed at times. Awaiting to have a swallow eval done with speech possibly today or tomorrow as he is currently nothing by mouth. Repeat chest x-ray today shows stable findings and continues with some possible mild venous congestion. Patient will be given a dose of IV Lasix again. Patient is currently off IV fluids and will continue at this time. 04/06/2019 Patient is sitting up in currently remains in the ICU being closely monitored. Patient is currently requiring high flow oxygen via nasal cannula at 15 L. Pulmonary is following closely. Patient is also currently on Cleviprex for blood pressure control if he was having elevated blood pressures throughout the night and this morning. Patient is able to respond appropriately to simple commands but continues to not talk much. Patient is hard of hearing. Patient underwent a swallow eval and failed and will continue nothing by mouth with just ice chips at this time. Repeat chest x-ray shows no real improvement. Patient will be started on steroids and was given another dose of IV Lasix. 04/07/2019 Patient is sitting up in the chair and appears to be in no acute distress. Patient is currently being closely monitored in the ICU as he presently remains on a Cleviprex drip for tighter blood pressure control. Catapres patch was added. Patient currently remains nothing by mouth except small amounts of ice chips as he continues to fail swallow eval's. May need a modified barium swallow. Patient continues to receive daily doses of IV Lasix as repeat chest x-rays continue to show vascular congestion. Patient will be started on a dose of oral Lasix. Case management and social work are following and awaiting for guardianship that is expected to occur this Thursday. Will continue to monitor closely. 04/08/2019 Patient is sitting up in the chair and appears to be in no acute distress. Patient is currently being monitored in the ICU and awaiting a [facility] bed to become available for transfer. Patient is off the Cleviprex drip and blood pressure is more stabilized with a Catapres patch. Patient underwent a modified barium swallow and patient will be started on dysphagia 2 ground diet with thin liquids and no straws and will continue aspiration precautions and assistance with feeding. No aspiration noted on the swallow eval. Patient currently remains on high flow oxygen via nasal cannula and is now down to 9 L. Will continue to monitor closely. Possible guardianship this Thursday. 04/09/2019 Patient is currently awake alert. No acute distress. Currently saturating at 90% on 6 L high flow oxygen with another cannula. Patient is being continued on DuoNeb's, Pulmicort, Perforomist and oral prednisone and antibiotics in the form of Zosyn. Patient is being continued on dysphagia level II diet and aspiration precautions. Patient had right facial droop, strokelike symptoms. Patient underwent CT head showed possible left-sided lacunar infarct. Patient was seen by neurology and will stroke workup was ordered. MRI of the brain, carotid duplex, 2-D echocardiogram and lipid panel was ordered. Patient was started on aspirin 325 mg daily. Pulmonary and neurology is following. 04/10/2019 Patient is currently resting in the bed comfortably. Awake alert and oriented. No acute distress. Patient is otherwise lethargic at baseline. No complaints of chest pain or worsening short of breath. Saturating well on 2 L oxygen via nasal cannula. Laboratory data showed WBC count 21, hemoglobin 12.9 and creatinine 0.60. Patient is being continued on oral prednisone, DuoNeb's and Pulmicort and Perforomist. Antibiotics in the form of Zosyn. Pulmonary is on board. Patient is undergoing stroke workup as above. 04/11/2019 Patient is sitting up in the chair and appears to be in no acute distress. Currently patient denies any chest pain, shortness of breath, or palpitations. Patient is afebrile. Patient denies any nausea or vomiting and has been tolerating diet. Patient is currently on 2 L of oxygen via nasal cannula and saturating well. Pulmonary is following. Neurology evaluated the patient. She underwent an MRI of the brain showing pansinusitis and mastoiditis with age- related atrophy and chronic small vessel ischemia with no restricted diffusion to suggest subacute ischemia. Public guardianship was obtained today and case management and social work are following for possible placement at [facility]. 04/12/2019 Patient is sitting up in the chair and has just completed breakfast. Patient has been working with physical therapy and currently awaiting for possible placement at [facility] for continued PT/OT therapy. Patient currently remains on oral prednisone and will continue at this time. Currently patient denies any chest pain, worsening shortness of breath, or palpitations. Patient is afebrile. Patient denies any nausea or vomiting and has been tolerating diet. Patient is currently saturating well on 2 L of oxygen via nasal cannula. Will discontinue Catapres patch as patient has been resumed on Coreg and will continue to monitor vital signs closely. Current sodium today is 136. 04/13/2019 Patient is sitting up in bed with no acute overnight issues. Patient has received authorization for [facility] continue PT/OT therapy for strength and mobility. During hospitalization patient obtained Public guardianship as he was unable to make medical decisions on his own. Currently patient denies any chest pain, palpitations, or shortness of breath. Patient is afebrile. Patient denies any nausea or vomiting and has been tolerating diet. Patient should continue with aspiration precautions and not using any straws with liquids. Currently patient's condition is stable and is ready for discharge today. On exam vital signs are stable. Temp is 98F, pulse is 74, respirations are 20, blood pressure is 90/53, oxygen saturation is 94% on room air. Patient occasionally uses 2 L of oxygen via nasal cannula. Cardio S1, S2 are present. Respiratory system shows diminished breath sounds at the bases with no wheezing or rhonchi noted. Abdomen is soft and nontender. Nervous system shows mild diffuse weakness. Please refer to medication reconciliation sheet for a list of medications. Patient Condition at Discharge: Stable Plan - Discharge Summary New Discharge Prescriptions: New Aspirin 325 mg PO DAILY tab Ciprofloxacin HCl [Cipro] 500 mg PO BID 4 Days #8 tab Carvedilol [Coreg] 6.25 mg PO BID-W/MEALS tab Ipratropium-Albuterol Nebulize [Duoneb 0.5 mg-3 mg/3 ml Soln] 3 ml INHALATION RT-QID ml Ipratropium-Albuterol Nebulize [Duoneb 0.5 mg-3 mg/3 ml Soln] 3 ml INHALATION RT-Q4H PRN ml PRN Reason: Shortness Of Breath Or Wheezing Furosemide [Lasix] 20 mg PO DAILY tab Atorvastatin [Lipitor] 40 mg PO HS tab INSULIN ASPART (NovoLOG) [NovoLOG (formulary)] 0 unit SQ ACHS vial Formoterol Fumarate [Perforomist] 20 mcg INHALATION RT-BID nebu predniSONE 10 mg PO DIRECTED #30 tab Pantoprazole [Protonix] 40 mg PO DAILY tablet. Budesonide [Pulmicort] 1 mg INHALATION RT-BID ml Continue risperiDONE 3 mg PO BID #60 tablet FLUoxetine HCL [PROzac] 20 mg PO DAILY #30 cap Acetaminophen Tab [Tylenol] 650 mg PO Q8H PRN PRN Reason: Pain Discontinued Carvedilol [Coreg] 6.25 mg PO AC-BID #60 tab Nicotine 21Mg/24Hr Patch [Habitrol] 1 patch TRANSDERM DAILY #30 patch Discharge Medication List FLUoxetine HCL [PROzac] 20 mg PO DAILY #30 cap 07/10/16 [Rx] risperiDONE 3 mg PO BID #60 tablet 07/10/16 [Rx] Acetaminophen Tab [Tylenol] 650 mg PO Q8H PRN 03/15/19 [History] Aspirin 325 mg PO DAILY tab 04/13/19 [Rx] Atorvastatin [Lipitor] 40 mg PO HS tab 04/13/19 [Rx] Budesonide [Pulmicort] 1 mg INHALATION RT-BID ml 04/13/19 [Rx] Carvedilol [Coreg] 6.25 mg PO BID-W/MEALS tab 04/13/19 [Rx] Ciprofloxacin HCl [Cipro] 500 mg PO BID 4 Days #8 tab 04/13/19 [Rx] Formoterol Fumarate [Perforomist] 20 mcg INHALATION RT-BID nebu 04/13/19 [Rx] Furosemide [Lasix] 20 mg PO DAILY tab 04/13/19 [Rx] INSULIN ASPART (NovoLOG) [NovoLOG (formulary)] 0 unit SQ ACHS vial 04/13/19 [Rx] Ipratropium-Albuterol Nebulize [Duoneb 0.5 mg-3 mg/3 ml Soln] 3 ml INHALATION RT-Q4H PRN ml 04/13/19 [Rx] Ipratropium-Albuterol Nebulize [Duoneb 0.5 mg-3 mg/3 ml Soln] 3 ml INHALATION RT-QID ml 04/13/19 [Rx] Pantoprazole [Protonix] 40 mg PO DAILY tablet. 04/13/19 [Rx] predniSONE 10 mg PO DIRECTED #30 tab 04/13/19 [Rx] Follow up Appointment(s)/Referral(s): Quan Shah DO [STAFF PHYSICIAN] - 1 Week Activity/Diet/Wound Care/Special Instructions: Patient is going to [facility] Continue current diet with no straws and consistent carb/heart healthy Maintain aspiration precautions when eating Continue with antibiotics for the next 4 days and then may discontinue Continue with prednisone taper until finished Continue monitoring blood sugars before meals at bedtime and use sliding scale as needed Follow-up with primary care provider upon discharge Discharge Disposition: TRANSFER TO SNF/ECF
[2019-04-13 12:05] LABS: Glucose,Whole Blood 100 mg/dL (75-99)
[2019-04-13 12:29] VITALS: BP 98/64; PULSE 73; RESP 19; TEMP 98.6
== END 2019-04-13 12:20 | DRG 207 ==
LOC: EC 11:58 → EEVIPCON 16:54 → 2SICU 16:54 → 5NMEDONC 04-08 14:49
PROVIDERS: ADMIT Internal Medicine; ATTEND Internal Medicine
PROC: 0BH17EZ Insertion of Endotracheal Airway into Trachea, Via Natural or Artificial Opening (ICD-10-PCS; principal; 2019-03-31)
PROC: 5A1955Z Respiratory Ventilation, Greater than 96 Consecutive Hours (ICD-10-PCS; 2019-03-31)
PROC: 02HV33Z Insertion of Infusion Device into Superior Vena Cava, Percutaneous Approach (ICD-10-PCS; 2019-03-31)
PROC: 03HY32Z Insertion of Monitoring Device into Upper Artery, Percutaneous Approach (ICD-10-PCS; 2019-03-31)
PROC: 4A133B1 Monitoring of Arterial Pressure, Peripheral, Percutaneous Approach (ICD-10-PCS; 2019-03-31)
PROC: 4A133J1 Monitoring of Arterial Pulse, Peripheral, Percutaneous Approach (ICD-10-PCS; 2019-03-31)
PROC: 0DH67UZ Insertion of Feeding Device into Stomach, Via Natural or Artificial Opening (ICD-10-PCS; 2019-03-31)
PROC: 3E0G76Z Introduction of Nutritional Substance into Upper GI, Via Natural or Artificial Opening (ICD-10-PCS; 2019-04-01)
DX: J69.0 Pneumonitis due to inhalation of food and vomit (principal); J96.01 Acute respiratory failure with hypoxia; G93.41 Metabolic encephalopathy; I63.81 Other cerebral infarction due to occlusion or stenosis of small artery; J96.02 Acute respiratory failure with hypercapnia; E22.2 Syndrome of inappropriate secretion of antidiuretic hormone; J90 Pleural effusion, not elsewhere classified; E87.4 Mixed disorder of acid-base balance; J44.1 Chronic obstructive pulmonary disease with (acute) exacerbation; I95.9 Hypotension, unspecified; I11.9 Hypertensive heart disease without heart failure; J15.6 Pneumonia due to other Gram-negative bacteria; H70.90 Unspecified mastoiditis, unspecified ear; F20.9 Schizophrenia, unspecified; E11.9 Type 2 diabetes mellitus without complications; F17.200 Nicotine dependence, unspecified, uncomplicated; E86.1 Hypovolemia; R29.810 Facial weakness; H02.401 Unspecified ptosis of right eyelid; E87.70 Fluid overload, unspecified; R59.0 Localized enlarged lymph nodes; R63.1 Polydipsia; R40.2352 Coma scale, best motor response, localizes pain, at arrival to emergency department; R40.2132 Coma scale, eyes open, to sound, at arrival to emergency department; R40.2252 Coma scale, best verbal response, oriented, at arrival to emergency department; H91.90 Unspecified hearing loss, unspecified ear; T43.225A Adverse effect of selective serotonin reuptake inhibitors, initial encounter; R13.10 Dysphagia, unspecified; J32.4 Chronic pansinusitis; Z79.899 Other long term (current) drug therapy; Z98.890 Other specified postprocedural states; Z88.2 Allergy status to sulfonamides
CPT/HCPCS: 36415; 36600; 51702; 70450; 70551; 71045; 71046; 74230; 80048; 80053; 80061; 80306; 80320; 81003; 82805; 83036; 83735; 83880; 83930; 83935; 84295; 84300; 84443; 84484; 85025; 85027; 85610; 85730; 87040; 87070; 87077; 87186; 87205; 93005; 93306; 93880; 94002; 94003; 94640; 94760; 96361; 96374; 99291

== ENCOUNTER → 2019-05-11 | Outpatient (CLI) | payer MEDICARE ==
--- NOTE | 2019-05-11 12:56 | CT ---
EXAMINATION TYPE: CT chest w con DATE OF EXAM: 05/11/2019 COMPARISON: 12/27/2018 HISTORY: lymphedema CT DLP: 512 mGycm, Automated exposure control for dose reduction was used. CONTRAST: Performed injected with 100 mL of Isovue 300. TECHNIQUE: Axial images were obtained at 5 mm thick sections. Reconstructed images are reviewed on [employer] computer in the coronal plane. FINDINGS: Portion of the thyroid visualized is normal. Some focal pulmonary fibrosis may be in the posterior medial right lower lung field. Some subtle scat tered areas of pneumonitis change may be within the mid right lung. Example image series 3 image 27 l anthony windows. There are multiple small shotty lymph nodes within the mediastinum. Multiple lymphadenopathy is with in the bilateral axilla. Some bilateral hilar adenopathy is present. There is an enlarged lymph node in the subcarinal space measuring 1.0 cm. Normal less than 0.5 cm. L ymphadenopathy may be slightly diminished over the interval. Ascending aorta diameter at the level of the main pulmonary artery is 3.9 cm. The main pulmonary art louie diameter at the bifurcation is 3.[address] sections are obtained through the upper abdomen. Left adrenal gland is enlarged measuring 2.4 cm. This appears somewhat hypodense and could be a angiomyolipoma. IMPRESSIONS: 1. Scattered areas of pneumonitis within the lungs is nonspecific. Correlate for infectious etiology. 2. An enlarged subcarinal lymph node with multiple prominent axillary lymph nodes as well as shotty l ymphadenopathy through the mediastinum and bilateral arline. Consider workup for lymphoma.
== END | disposition home or self-care (01) ==
LOC: RADCTMAIN 10:31
PROVIDERS: ATTEND Family Medicine
DX: J18.9 Pneumonia, unspecified organism (principal); R59.1 Generalized enlarged lymph nodes
CPT/HCPCS: 71260; Q9967

== ENCOUNTER 2019-08-17 14:31 | Inpatient (IN) | payer MEDICARE, OTHER ==
[2019-08-17] MEDS ORDERED: SODIUM CHLORIDE 0.9% 500 ML 500 ML IV ONE (15:13)
[2019-08-17 15:46] LABS: Glucose,Whole Blood 119 mg/dL (75-99)
[2019-08-17 15:49] LABS: Basophils # (A) 0.1 k/uL (0-0.2); Basophils % (A) 1 %; Eosinophils % (A) 0 %; HGB 14.5 gm/dL (13.0-17.5); Lymphocytes # (A) 7.5 k/uL (1.0-4.8); Lymphocytes % (A) 33 %; MCH 29.9 pg (25.0-35.0); MCHC 34.5 g/dL (31.0-37.0); MCV 86.9 fL (80.0-100.0); Mean Platelet Volume 7.4; Monocytes # (A) 1.4 k/uL (0-1.0); Monocytes % (A) 6 %; Neutrophils # (A) 12.1 k/uL (1.3-7.7); Neutrophils % (A) 54 %; Platelet Count 195 k/uL (150-450); RBC 4.83 m/uL (4.30-5.90); RDW 12.9 % (11.5-15.5); WBC 22.7 k/uL (3.8-10.6)
[2019-08-17 15:54] LABS: ALT 17 U/L (4-49); AST 51 U/L (17-59); African American GFR (CKD) >90 (>60 ml/min/1.73 sqM); Albumin 3.9 g/dL (3.5-5.0); Alkaline Phosphatase 128 U/L (38-126); Anion Gap 9 mmol/L; Blood Urea Nitrogen 6 mg/dL (9-20); Calcium 8.3 mg/dL (8.4-10.2); Carbon Dioxide 26 mmol/L (22-30); Glucose 110 mg/dL (74-99); Non-African American GFR(CKD) >90 (>60 ml/min/1.73 sqM); Total Protein 6.4 g/dL (6.3-8.2)
[2019-08-17 15:56] LABS: Chloride 72 mmol/L (98-107); Sodium 107 mmol/L (137-145)
[2019-08-17 16:13] LABS: INR 0.9 (<1.2); Partial Thromboplastin Time 25.8 sec (22.0-30.0); Prothrombin Time 9.9 sec (9.0-12.0)
[2019-08-17] MEDS ORDERED: SODIUM CHLORIDE 0.9% 1,000 ML IV SCH (16:15)
--- NOTE | 2019-08-17 16:19 | CT ---
EXAMINATION TYPE: CT brain yanci wo con DATE OF EXAM: 08/17/2019 COMPARISON: 04/08/2019 HISTORY: 64-year-old male with pain, confusion, altered mental status, Possible head injury after fal l CT DLP: 1755.1 mGycm Automated exposure control for dose reduction was used. Technique: Examination of the head was done in axial plane without intravenous contrast. Coronal and sagittal reconstructions performed. CT of the cervical spine was obtained in axial plane without intravenous injection of contrast mater ial. Coronal and sagittal reformatted images were obtained from the axial views for evaluation of f ractures, spinal alignment and canal. FINDINGS: Head: There is no evidence of acute intracranial hemorrhage, acute ischemic changes, mass, mass-effect, or extra-axial fluid collection. There is no effacement of cerebral sulci or basal subarachnoid cister ns. There is no hydrocephalus. There is no midline shift. Goodrich-white matter distinction is preserv ed. Moderate to severe mucosal thickening throughout the ethmoid air cells and left sphenoid sinus. Small air-fluid level right maxillary sinus. Orbits and globes appear intact. Suspect some underlying poly posis within the left nasal cavity. Opacification of right mastoid air cells. Mild patchy subcortical white matter hypodensities suggesting changes of chronic small vessel ischemi c disease. Cervical spine: Motion artifacts degrade assessment especially if the mid cervical spine. No cranial cervical junction optimally, predental space widening, or prevertebral soft tissue swellin g. Alignment is maintained. Mild multilevel degenerative disc disease. No convincing acute fracture of t he cervical spine is clearly identified. There is underlying cervical lymphadenopathy measuring up to 1.8 cm. Supraclavicular lymphadenopathy measuring up to 1.6 cm. Emphysematous change in the visualized upper lungs Sagittal and coronal reformatted images confirm above findings. COMBINED IMPRESSION: 1. No acute intracranial abnormality seen. Mild patchy changes of chronic small vessel ischemic disea se. 2. Motion degraded assessment of the cervical spine. No convincing acute fracture or malalignment. 3. Cervical and supraclavicular lymphadenopathy measuring up to 1.8 cm. Correlate for any known under lying diagnosis including lymphoma. Further evaluation is recommended if there is no known diagnosis. 4. Moderate to severe chronic paranasal sinus disease. Suspect underlying polyposis within the left n maliha cavity. Possible acute right maxillary sinusitis. 5. Opacification of right mastoid air cells. Correlate for any mastoid pain to exclude mastoiditis.
--- NOTE | 2019-08-17 16:20 | XR ---
EXAMINATION TYPE: XR chest 2V DATE OF EXAM: 08/17/2019 COMPARISON: 04/07/2019 HISTORY: 64-year-old male confusion, altered mental status TECHNIQUE: AP and lateral views FINDINGS: Heart mildly enlarged. Aorta within normal limits. Mild diffuse interstitial prominence. Hazy periphe ral lower lung densities relating to overlying soft tissue. No consolidation or pleural effusion. IMPRESSION: Similar mild cardiomegaly. Interstitial prominence is unchanged, possible bronchitis or chronic asthm a. No definite focal infiltrate allowing for limitations from large patient body habitus.
--- NOTE | 2019-08-17 16:22 | XR ---
EXAMINATION TYPE: XR foot complete RT DATE OF EXAM: 08/17/2019 COMPARISON: NONE HISTORY: 64-year-old male swelling and ecchymosis TECHNIQUE: 3 views FINDINGS: Hallux valgus deformity with mild first MTP joint only. Hernandez's toe. Dorsal soft tissue swelling. No acute fracture, subluxation, or dislocation is seen. IMPRESSION Dorsal soft tissue swelling. No acute osseous abnormality seen.
--- NOTE | 2019-08-17 16:59 | ED ---
Weakness HPI - General Source: patient, EMS Mode of arrival: EMS Limitations: altered mental status <Jacqueline Candelario - Last Filed: 08/17/19 17:39> <Gaby Davis - Last Filed: 08/22/19 04:08> - General Chief complaint: Weakness Stated complaint: weakness Time Seen by Provider: 08/17/19 14:44 - History of Present Illness Initial comments: 64-year-old male patient presents to the emergency department by ambulance for evaluation of generalized weakness and shortness of breath. Ambulance was called by his roommate. Patient is unsure why he called. Patient denies any current complaints or physical symptoms. States his left-sided weakness is chronic. Patient denies any headache, blurred vision, double vision, numbness, tingling to his extremities. Denies any nausea or vomiting. Denies constipation or diarrhea. Denies alcohol or drug use. Patient has trauma noted to the right foot and scab on his head, he denies any falls and is not sure how he sustained these injuries. Patient denies any recent rash, fever, chills, chest pain, abdominal pain, back pain, dizziness, weakness, hematuria, dysuria, urinary urgency, urinary frequency, or any other complaints. (Jacquleine Candelario) - Related Data Previous Rx's Medication Instructions Recorded FLUoxetine HCL [PROzac] 20 mg PO DAILY #30 cap 07/10/16 risperiDONE 3 mg PO BID #60 tablet 07/10/16 Carvedilol [Coreg] 6.25 mg PO BID-W/MEALS tab 04/13/19 Allergies Allergy/AdvReac Type Severity Reaction Status Date / Time Sulfa (Sulfonamide Allergy Rash/Hives Verified 03/29/19 12:35 Antibiotics) Review of Systems ROS Other: All systems not noted in ROS Statement are negative. <Jacqueline Candelario - Last Filed: 08/17/19 17:39> ROS Other: All systems not noted in ROS Statement are negative. <Gaby Davis - Last Filed: 08/22/19 04:08> ROS Statement: Those systems with pertinent positive or pertinent negative responses have been documented in the HPI. Past Medical History Past Medical History: Diabetes Mellitus, Hypertension History of Any Multi-Drug Resistant Organisms: None Reported Past Surgical History: Orthopedic Surgery Additional Past Surgical History / Comment(s): sinus sx Past Anesthesia/Blood Transfusion Reactions: No Reported Reaction Past Psychological History: Schizophrenia Smoking Status: Current every day smoker Past Alcohol Use History: None Reported Past Drug Use History: None Reported <Jacqueline Candelario M - Last Filed: 08/17/19 17:39> General Exam Limitations: altered mental status General appearance: alert, in no apparent distress, other (This is a well- developed, well-nourished adult male patient who is drowsy, and unkempt. Vital signs upon presentation are temperature 98.8F, pulse 87, respirations 20, blood pressure 134/102, pulse ox 97% on room air.) Head exam: Present: normocephalic, normal inspection, other (There is scabbed lesion and soft tissue swelling noted to the posterior scalp) Eye exam: Present: normal appearance, PERRL, EOMI, conjunctival injection (Left), periorbital swelling (Left upper lid swelling), other (Left upper lid erythema, swelling, green eye drainage, mild conjunctival injection.). Absent: scleral icterus ENT exam: Present: normal exam, normal oropharynx, mucous membranes moist Respiratory exam: Present: wheezes (Diffuse expiratory wheezing noted in the posterior lung mccartney). Absent: normal lung sounds bilaterally, respiratory distress, rales, rhonchi, stridor Cardiovascular Exam: Present: regular rate, normal rhythm, normal heart sounds. Absent: systolic murmur, diastolic murmur, rubs, gallop, clicks GI/Abdominal exam: Present: soft, normal bowel sounds. Absent: distended, tenderness, guarding, rebound, rigid Extremities exam: Present: full ROM, tenderness (Over the dorsal aspect of the right foot), normal capillary refill, other (There is soft tissue swelling and ecchymosis noted over the dorsal aspect of the right foot.). Absent: normal inspection, pedal edema, joint swelling, calf tenderness Neurological exam: Present: CN II-XII intact, other (Strength in all 4 extremities is 4/5.). Absent: alert (Drowsy), oriented X3 (Oriented 2) Psychiatric exam: Present: normal affect, normal mood Skin exam: Present: warm, dry, intact, normal color. Absent: rash <Jacqueline Candelario - Last Filed: 08/17/19 17:39> Course Vital Signs 0608/17/19 08/17/19 14:41 14:46 15:00 Temperature 98.8 F Pulse Rate 87 Respiratory 20 20 Rate Blood Pressure 134/102 134/102 O2 Sat by Pulse 97 Oximetry 08/17/19 08/17/19 08/17/19 15:46 16:46 17:00 Temperature Pulse Rate 86 88 80 Respiratory 20 20 20 Rate Blood Pressure 138/96 149/104 137/93 O2 Sat by Pulse 95 95 95 Oximetry 08/17/19 08/17/19 18:00 18:10 Temperature Pulse Rate 104 H 88 Respiratory 18 20 Rate Blood Pressure 137/93 142/101 O2 Sat by Pulse 99 95 Oximetry EKG Findings - EKG Comments: EKG Findings:: EKG obtained at 1503 shows normal sinus rhythm with a ventricular rate of 90, NH interval 134, QRS duration 70, QT 360, QTC 440. No evidence of ST elevation or depression. <Jacqueline Candelario - Last Filed: 08/17/19 17:39> Medical Decision Making - Lab Data Result diagrams: 08/17/19 14:54 08/17/19 14:54 - Radiology Data Radiology results: report reviewed, image reviewed <Jacqueline Candelario - Last Filed: 08/17/19 17:39> - Lab Data Result diagrams: 08/20/19 04:52 08/21/19 04:43 <Gaby Davis - Last Filed: 08/22/19 04:08> - Medical Decision Making 64-year-old male patient presented to the emergency department via EMS as called by his roommate for trouble breathing. Patient exhibits generalized weakness. Patient is answering questions appropriately but is quite drowsy. He is easily arousable to verbal stimulation. Labs reviewed and did reveal decreased sodium level at 107, decreased chloride as well. Patient's labs exhibit leukocytosis which seems to be chronic for the patient. We did perform CT of the head and neck which were unremarkable other than some enlarged cervical lymph nodes. Chest x-ray and right foot x-ray were negative. I did discuss the case with Dr. Garcia who recommends 3% hypertonic saline at 20 per hour. We will repeat sodium level every 3 hours. Add urine osmolality and urine sodium. Patient will be admitted to the intensive care unit. We will consult neurology and hematology/oncology. Patient is agreeable with this plan. (Jacqueline Candelario) I was available for consultation in the emergency department. The history and physical exam were done by the midlevel provider. I was consulted for this patients care. I reviewed the case with the midlevel provider and based on their presentation of the patient, I agree with the assessment, medical decision making and plan of care as documented. Chart was dictated using [employer] dictation software. Attempts were made to correct any dictation errors however some typographical errors may persist. (Gaby Davis) - Lab Data Lab Results 08/17/19 08/17/19 08/17/19 Range/Units 14:54 14:54 14:54 WBC 22.7 H (3.8-10.6) k/uL RBC 4.83 (4.30-5.90) m/uL Hgb 14.5 (13.0-17.5) gm/dL Hct 42.0 (39.0-53.0) % MCV 86.9 (80.0-100.0) fL MCH 29.9 (25.0-35.0) pg MCHC 34.5 (31.0-37.0) g/dL RDW 12.9 (11.5-15.5) % Plt Count 195 (150-450) k/uL Neutrophils % 54 % Lymphocytes % 33 % Monocytes % 6 % Eosinophils % 0 % Basophils % 1 % Neutrophils # 12.1 H (1.3-7.7) k/uL Lymphocytes # 7.5 H (1.0-4.8) k/uL Monocytes # 1.4 H (0-1.0) k/uL Eosinophils # 0.0 (0-0.7) k/uL Basophils # 0.1 (0-0.2) k/uL PT 9.9 (9.0-12.0) sec INR 0.9 (<1.2) APTT 25.8 (22.0-30.0) sec Sodium 107 L* (137-145) mmol/L Potassium 5.0 (3.5-5.1) mmol/L Chloride 72 L* (98-107) mmol/L Carbon Dioxide 26 (22-30) mmol/L Anion Gap 9 mmol/L BUN 6 L (9-20) mg/dL Creatinine 0.47 L (0.66-1.25) mg/dL Est GFR (CKD-EPI)AfAm >90 (>60 ml/min/1.73 sqM) Est GFR (CKD-EPI)NonAf >90 (>60 ml/min/1.73 sqM) Glucose 110 H (74-99) mg/dL POC Glucose (mg/dL) (75-99) mg/dL POC Glu [employer] ID Calcium 8.3 L (8.4-10.2) mg/dL Magnesium (1.6-2.3) mg/dL Total Bilirubin 1.0 (0.2-1.3) mg/dL AST 51 (17-59) U/L ALT 17 (4-49) U/L Alkaline Phosphatase 128 H (38-126) U/L Troponin I (0.000-0.034) ng/mL Total Protein 6.4 (6.3-8.2) g/dL Albumin 3.9 (3.5-5.0) g/dL Coronavirus (PCR) (Not Detected) 08/17/19 08/17/19 08/17/19 Range/Units 14:54 14:54 15:34 WBC (3.8-10.6) k/uL RBC (4.30-5.90) m/uL Hgb (13.0-17.5) gm/dL Hct (39.0-53.0) % MCV (80.0-100.0) fL MCH (25.0-35.0) pg MCHC (31.0-37.0) g/dL RDW (11.5-15.5) % Plt Count (150-450) k/uL Neutrophils % % Lymphocytes % % Monocytes % % Eosinophils % % Basophils % % Neutrophils # (1.3-7.7) k/uL Lymphocytes # (1.0-4.8) k/uL Monocytes # (0-1.0) k/uL Eosinophils # (0-0.7) k/uL Basophils # (0-0.2) k/uL PT (9.0-12.0) sec INR (<1.2) APTT (22.0-30.0) sec Sodium (137-145) mmol/L Potassium (3.5-5.1) mmol/L Chloride (98-107) mmol/L Carbon Dioxide (22-30) mmol/L Anion Gap mmol/L BUN (9-20) mg/dL Creatinine (0.66-1.25) mg/dL Est GFR (CKD-EPI)AfAm (>60 ml/min/1.73 sqM) Est GFR (CKD-EPI)NonAf (>60 ml/min/1.73 sqM) Glucose (74-99) mg/dL POC Glucose (mg/dL) 119 H (75-99) mg/dL POC Glu [employer] ID [place] Calcium (8.4-10.2) mg/dL Magnesium 1.7 (1.6-2.3) mg/dL Total Bilirubin (0.2-1.3) mg/dL AST (17-59) U/L ALT (4-49) U/L Alkaline Phosphatase (38-126) U/L Troponin I <0.012 (0.000-0.034) ng/mL Total Protein (6.3-8.2) g/dL Albumin (3.5-5.0) g/dL Coronavirus (PCR) (Not Detected) 08/17/19 Range/Units 16:50 WBC (3.8-10.6) k/uL RBC (4.30-5.90) m/uL Hgb (13.0-17.5) gm/dL Hct (39.0-53.0) % MCV (80.0-100.0) fL MCH (25.0-35.0) pg MCHC (31.0-37.0) g/dL RDW (11.5-15.5) % Plt Count (150-450) k/uL Neutrophils % % Lymphocytes % % Monocytes % % Eosinophils % % Basophils % % Neutrophils # (1.3-7.7) k/uL Lymphocytes # (1.0-4.8) k/uL Monocytes # (0-1.0) k/uL Eosinophils # (0-0.7) k/uL Basophils # (0-0.2) k/uL PT (9.0-12.0) sec INR (<1.2) APTT (22.0-30.0) sec Sodium (137-145) mmol/L Potassium (3.5-5.1) mmol/L Chloride (98-107) mmol/L Carbon Dioxide (22-30) mmol/L Anion Gap mmol/L BUN (9-20) mg/dL Creatinine (0.66-1.25) mg/dL Est GFR (CKD-EPI)AfAm (>60 ml/min/1.73 sqM) Est GFR (CKD-EPI)NonAf (>60 ml/min/1.73 sqM) Glucose (74-99) mg/dL POC Glucose (mg/dL) (75-99) mg/dL POC Glu [employer] ID Calcium (8.4-10.2) mg/dL Magnesium (1.6-2.3) mg/dL Total Bilirubin (0.2-1.3) mg/dL AST (17-59) U/L ALT (4-49) U/L Alkaline Phosphatase (38-126) U/L Troponin I (0.000-0.034) ng/mL Total Protein (6.3-8.2) g/dL Albumin (3.5-5.0) g/dL Coronavirus (PCR) Not Detected (Not Detected) - Radiology Data 3 views of the right foot are obtained. Report was reviewed in its entirety. Impression by Dr. Smapson shows dorsal soft tissue swelling. No acute osseous abnormalities seen. Two-view x-ray of the chest is obtained. Report was reviewed in its entirety. Impression by Dr. Sampson shows similar mild cardiomegaly. Interstitial prominence is unchanged. Possible bronchitis or chronic asthma. No definite focal infiltrate allowing for limitations from large patient body habitus. CT head and cervical spine were obtained. Report was reviewed in its entirety. Impression by Dr. Sampson shows no acute intracranial abnormalities seen. Mild patchy changes of chronic small vessel ischemia. Motion degraded assessment of the cervical spine. No convincing acute fracture or malalignment. Cervical and supraclavicular lymphadenopathy measuring up to 1.8 cm. Correlate for any known underlying diagnosis including lymphoma. Further evaluation is recommended there is no known diagnosis. Moderate to severe chronic paranasal sinus disease. Suspect underlying polyposis within left nasal cavity. Possible acute right maxilla sinusitis. Opacification of the right mastoid air cells. Correlate for any mastoid pain took exclude mastoiditis. (Jacqueline Candelario) Critical Care Time Critical Care Time: Yes <Gaby Davis - Last Filed: 08/22/19 04:08> Critical Care Time: 35 minutes (Gaby Davis) Disposition Decision to Admit Reason: Admit from EC Decision Date: 08/17/19 Decision Time: 17:20 <Jacqueline Candelario - Last Filed: 08/17/19 17:39> <Gaby Davis - Last Filed: 08/22/19 04:08> Clinical Impression: Hyponatremia, Leukocytosis, Lymphadenopathy, Blepharitis, left eye Disposition: ADMITTED IP TO THIS [facility] Condition: Serious
[2019-08-17] MEDS ORDERED: NALOXONE 0.4 MG/ML 1 ML VIAL IV PRN (17:07)
[2019-08-17] MEDS ORDERED: IPRATROPIUM-ALBUTEROL 3 ML NEB INHALATION PRN (17:07)
[2019-08-17] MEDS ORDERED: ACETAMINOPHEN TAB 325 MG TAB PO PRN (17:07)
[2019-08-17] MEDS ORDERED: SODIUM CHLORIDE 3%(HYPERTONIC) 500 ML IV SCH (17:15)
[2019-08-17 18:03] LABS: Appearance,Urine Clear (Clear); Bilirubin,Urine Negative (Negative); Blood,Urine Trace (Negative); Color,Urine Yellow; Glucose,Urine (UA) Trace (Negative); Ketones,Urine Trace (Negative); Leukocyte Esterase,Urine Negative (Negative); Mucus,Urine Rare /hpf; Nitrite,Urine Negative (Negative); Protein,Urine Trace (Negative); RBC,Urine 8 /hpf (0-5); Specific Gravity,Urine 1.016 (1.001-1.035); Squamous Epithelial Cell,Urine <1 /hpf (0-4); Urobilinogen,Urine <2.0 mg/dL (<2.0); WBC,Urine 1 /hpf (0-5)
[2019-08-17 18:11] LABS: Amphetamine Screen,Urine Not Detected (NotDetected); Barbiturate Screen,Urine Not Detected (NotDetected); Benzodiazepines Screen,Urine Not Detected (NotDetected); Cocaine Screen,Urine Detected (NotDetected); Methadone Screen, Urine Not Detected (NotDetected); Opiate Screen,Urine Not Detected (NotDetected); Oxycodone Screen, Urine Not Detected (NotDetected); Phencyclidine Screen,Urine Not Detected (NotDetected); Tricyclic Antidepressant,Urine Not Detected (NotDetected); Urn Cannabinoid Scrn Not Detected (NotDetected)
[2019-08-17 19:01] LABS: Glucose,Whole Blood 135 mg/dL (75-99)
[2019-08-17] MEDS: IPRATROPIUM-ALBUTEROL 3 ML NEB INHALATION SCH (19:27)
[2019-08-17] MEDS: ERYTHROMYCIN 5 MG/GM OPHTH OINT 3.5 GM TUBE LEFT EYE SCH (21:00)
[2019-08-18] MEDS: ERYTHROMYCIN 5 MG/GM OPHTH OINT 3.5 GM TUBE LEFT EYE SCH ×6 (00:25→20:46)
[2019-08-18 02:38] LABS: Glucose,Whole Blood 109 mg/dL (75-99)
[2019-08-18 05:45] LABS: HCT 41.5 % (39.0-53.0); MCH 29.8 pg (25.0-35.0); MCHC 33.6 g/dL (31.0-37.0); MCV 88.7 fL (80.0-100.0); Mean Platelet Volume 7.5; Platelet Count 202 k/uL (150-450); RBC 4.69 m/uL (4.30-5.90); WBC 21.5 k/uL (3.8-10.6)
[2019-08-18 05:55] LABS: African American GFR (CKD) >90 (>60 ml/min/1.73 sqM); Anion Gap 6 mmol/L; Blood Urea Nitrogen 8 mg/dL (9-20); Carbon Dioxide 28 mmol/L (22-30); Chloride 79 mmol/L (98-107); Glucose 96 mg/dL (74-99); Non-African American GFR(CKD) >90 (>60 ml/min/1.73 sqM); Potassium 4.5 mmol/L (3.5-5.1)
[2019-08-18 05:56] LABS: Sodium 113 mmol/L (137-145)
[2019-08-18 06:27] LABS: Glucose,Whole Blood 114 mg/dL (75-99)
[2019-08-18 06:31] LABS: Lymphocytes # (M) 9.25 k/uL (1.0-4.8); Monocytes # (M) 0.65 k/uL (0-1.0); Neutrophils # (M) 11.61 k/uL (1.3-7.7); Neutrophils % (M) 54 %; Nucleated Red Blood Cells 0 /100 WBC (0-0); Reactive Lymphocytes Present; Total Cells Counted 100
[2019-08-18] MEDS: BUDESONIDE 1 MG/2 ML NEBU INHALATION SCH ×2 (07:58→19:38)
[2019-08-18] MEDS: FORMOTEROL FUMARATE 20 MCG/2 ML NEBU INHALATION SCH ×2 (07:58→19:38)
[2019-08-18] MEDS: IPRATROPIUM-ALBUTEROL 3 ML NEB INHALATION SCH ×4 (07:58→19:38)
--- NOTE | 2019-08-18 08:20 | XR ---
EXAMINATION TYPE: XR chest 1V portable DATE OF EXAM: 08/18/2019 COMPARISON: 08/17/2019 INDICATION: TECHNIQUE: Single frontal view of the chest is obtained. FINDINGS: The heart size is normal. The pulmonary vasculature is normal. The lungs are clear. There is placement of a left central venous catheter with the tip in the superior vena cava region. N o pneumothorax is evident. IMPRESSION: 1. No acute pulmonary process. 2. Placement of a left central venous catheter with the tip in the superior vena cava region.
[2019-08-18 08:53] LABS: Glucose,Whole Blood 103 mg/dL (75-99)
[2019-08-18] MEDS: methylPREDNISolone SOD SUCCI 40 MG/ML 1 ML VIAL IV SCH ×2 (10:03→20:46)
[2019-08-18] MEDS: HEPARIN SODIUM,PORCINE 5,000 UNIT/ML 1 ML VIAL SQ SCH ×2 (10:03→17:02)
[2019-08-18] MEDS: ASPIRIN 325 MG TAB PO SCH (10:04)
[2019-08-18] MEDS: PANTOPRAZOLE 40 MG TABLET PO SCH (10:04)
[2019-08-18] MEDS: CARVEDILOL 6.25 MG TAB PO SCH ×2 (10:04→17:02)
--- NOTE | 2019-08-18 11:03 | P.CNPUL ---
History of Present Illness Consult date: 08/18/19 Chief complaint: Altered mentation, severe hyponatremia History of present illness: 63-year-old male patient with known history of schizophrenia maintained on a combination of risperidone and fluoxetine/Prozac by the previous hospital physician back in March 2019 for an aspiration pneumonia and severe hyponatremia. 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 He was treated with a hypertonic saline solution and he was treated for ventilator-dependent respiratory failure due to an extensive right lung pneumonia. He is also known to have COPD and hypertension and diabetes mellitus. The patient had a similar presentation where he was having generalized weakness and some degree of shortness of breath. He was asked to come in to the hospital and his roommate activated EMS services. The patient was having generalized weakness. The patient denied having any headaches or blurred vision or double vision and he denies having any numbness or tingling in his extremities. He denies having any nausea or vomiting. No constipation. No diarrhea. He had been falling and had trauma to his right foot and he had also some limited trauma to his head. He is a poor historian as such history is essentially unreliable. The patient had any shows sodium level of 107. He was started on the percent saline at the rate of 20 mL an hour and sodium gradually came up to 114 this morning. Currently is off the hypertonic saline solution. Mentation is improved. He has been bronchospastic congested and wheezy. The white cell count is 21. The osmolality of the urine was elevated at 458, urine sodium is at 63, serum osmolality is 228, LFTs are within normal, urine drug screen is positive for cocaine. The chest x-ray shows no acute abnormalities. The computed tomography scan of the head and the neck shows cervical and supraclavicular lymphadenopathy measuring up to 1.8 cm in size. He has also moderate to severe chronic paranasal sinus disease with underlying polyposis. He has also had some cervical spine disease. He has no intracranial abnormalities. There is chronic small vessel ischemic disease. Review of Systems All systems: negative Constitutional: Reports lethargy, Reports weakness Eyes: denies as per HPI, denies blurred vision, denies bulging eye, denies decreased vision, denies diplopia, denies discharge, denies dry eye, denies irritation, denies itching, denies pain, denies photophobia, denies loss of peripheral vision, denies loss of vision, denies tunnel vision/blind spots Ears: bilateral: decreased hearing, deny: ear discharge, earache, tinnitus Ears, nose, mouth and throat: Reports as per HPI Breasts: absent: as per HPI, gynecomastia Cardiovascular: Reports decreased exercise tolerance, Reports dyspnea on exer tion Respiratory: Reports cough, Reports dyspnea, Reports wheezing Gastrointestinal: Reports as per HPI Genitourinary: Reports as per HPI Musculoskeletal: Reports frequent falls Musculoskeletal: absent: ankle pain, ankle stiffness, ankle swelling Integumentary: Reports as per HPI Neurological: Reports ataxia, Reports gait dysfunction, Reports hearing difficulties, Reports lack of coordination, Reports weakness Psychiatric: Reports as per HPI (Schizophrenia) Endocrine: Reports as per HPI Hematologic/Lymphatic: Reports as per HPI Allergic/Immunologic: Reports as per HPI Past Medical History Past Medical History: COPD, Diabetes Mellitus, Hypertension Additional Past Medical History / Comment(s): Previous history of CVA, schizophrenia, type 2 diabetes mellitus, history of SIADH with severe hyponatremia, history of mediastinal lymphadenopathy, history of pansinusitis with possible mastoiditis on a CAT scan of the brain and MRI of the brain, history of lacunar infarct with some right-sided facial weakness. History of COPD History of Any Multi-Drug Resistant Organisms: None Reported Past Surgical History: Orthopedic Surgery Additional Past Surgical History / Comment(s): sinus sx Past Anesthesia/Blood Transfusion Reactions: No Reported Reaction Past Psychological History: Schizophrenia Smoking Status: Current every day smoker Past Alcohol Use History: None Reported Past Drug Use History: None Reported Medications and Allergies Home Medications Medication Instructions Recorded Confirmed Type FLUoxetine HCL [PROzac] 20 mg PO DAILY #30 cap 07/10/16 08/18/19 Rx risperiDONE 3 mg PO BID #60 tablet 07/10/16 08/18/19 Rx Carvedilol [Coreg] 6.25 mg PO BID-W/MEALS tab 04/13/19 08/18/19 Rx Allergies Allergy/AdvReac Type Severity Reaction Status Date / Time Sulfa (Sulfonamide Allergy Rash/Hives Verified 03/29/19 12:35 Antibiotics) Physical Exam Vitals: Vital Signs Temp Pulse Resp BP Pulse Ox 08/18/19 10:00 85 15 123/90 96 08/18/19 09:00 88 14 121/80 92 L 08/18/19 08:26 80 08/18/19 08:16 86 08/18/19 08:15 86 08/18/19 08:00 98.8 F 89 21 105/82 94 L 08/18/19 07:00 89 18 126/82 94 L 08/18/19 06:00 89 18 122/78 95 08/18/19 05:00 94 17 101/89 95 08/18/19 04:00 98.7 F 92 13 110/75 95 08/18/19 03:00 90 19 114/84 94 L 08/18/19 02:00 91 15 128/77 94 L 08/18/19 01:00 91 17 101/77 94 L 08/18/19 00:00 98.6 F 91 18 102/79 96 08/17/19 23:00 90 17 132/88 95 08/17/19 22:00 90 16 135/90 96 08/17/19 21:00 86 17 138/88 95 08/17/19 20:41 98.1 F 89 14 140/86 94 L 08/17/19 19:39 88 08/17/19 19:29 84 08/17/19 18:10 88 20 142/101 95 08/17/19 18:00 104 H 18 137/93 99 08/17/19 17:00 80 20 137/93 95 08/17/19 16:46 88 20 149/104 95 08/17/19 15:46 86 20 138/96 95 08/17/19 15:00 134/102 08/17/19 14:46 20 08/17/19 14:41 98.8 F 87 20 134/102 97 Intake and Output 08/17/19 08/18/19 08/18/19 22:59 06:59 14:59 Intake Total 140 100 150 Output Total 1135 1015 300 Balance -995 -915 -150 Intake: IV 140 100 100 Sodium Chloride 3%( 140 100 100 Hypertonic) 500 ml @ 20 mls/hr IV .Q24H [facility] Rx#: [id number] Intake, IV Titration 50 Amount cefTRIAXone 1 gm In 50 Sodium Chloride 0.9% 50 ml @ 100 mls/hr IVPB Q24HR [facility] Rx#:[id number] Output: Urine 1135 1015 300 Uretheral (Hebert) 350 Other: Voiding Method Indwelling Catheter Indwelling Catheter Indwelling Catheter Weight 90.718 kg 92.1 kg Results - Laboratory Findings CBC and BMP: 08/18/19 05:24 08/18/19 09:18 PT/INR, D-dimer PT 9.9 sec (9.0-12.0) 08/17/19 14:54 INR 0.9 (<1.2) 08/17/19 14:54 Abnormal lab findings: Abnormal Labs 08/17/19 08/17/19 08/17/19 14:54 14:54 15:34 WBC 22.7 H Neutrophils # 12.1 H Neutrophils # (Manual) Lymphocytes # 7.5 H Lymphocytes # (Manual) Monocytes # 1.4 H Sodium 107 L* Chloride 72 L* BUN 6 L Creatinine 0.47 L Glucose 110 H POC Glucose (mg/dL) 119 H Osmolality Calcium 8.3 L Alkaline Phosphatase 128 H Urine Protein Urine Glucose (UA) Urine Ketones Urine Blood Urine RBC Urine Mucus Urine Cocaine Screen 08/17/19 08/17/19 08/17/19 17:45 18:59 20:15 WBC Neutrophils # Neutrophils # (Manual) Lymphocytes # Lymphocytes # (Manual) Monocytes # Sodium Chloride BUN Creatinine Glucose POC Glucose (mg/dL) 135 H Osmolality 228 L* Calcium Alkaline Phosphatase Urine Protein Trace H Urine Glucose (UA) Trace H Urine Ketones Trace H Urine Blood Trace H Urine RBC 8 H Urine Mucus Rare H Urine Cocaine Screen Detected H 08/17/19 08/18/19 08/18/19 20:15 00:54 02:37 WBC Neutrophils # Neutrophils # (Manual) Lymphocytes # Lymphocytes # (Manual) Monocytes # Sodium 110 L* 113 L* Chloride BUN Creatinine Glucose POC Glucose (mg/dL) 109 H Osmolality Calcium Alkaline Phosphatase Urine Protein Urine Glucose (UA) Urine Ketones Urine Blood Urine RBC Urine Mucus Urine Cocaine Screen 08/18/19 08/18/19 08/18/19 05:24 05:24 06:25 WBC 21.5 H Neutrophils # Neutrophils # (Manual) 11.61 H Lymphocytes # Lymphocytes # (Manual) 9.25 H Monocytes # Sodium 113 L* Chloride 79 L BUN 8 L Creatinine 0.57 L Glucose POC Glucose (mg/dL) 114 H Osmolality Calcium 8.0 L Alkaline Phosphatase Urine Protein Urine Glucose (UA) Urine Ketones Urine Blood Urine RBC Urine Mucus Urine Cocaine Screen 08/18/19 08/18/19 08:52 09:18 WBC Neutrophils # Neutrophils # (Manual) Lymphocytes # Lymphocytes # (Manual) Monocytes # Sodium 114 L* Chloride BUN Creatinine Glucose POC Glucose (mg/dL) 103 H Osmolality Calcium Alkaline Phosphatase Urine Protein Urine Glucose (UA) Urine Ketones Urine Blood Urine RBC Urine Mucus Urine Cocaine Screen - Diagnostic Findings Chest x-ray: image reviewed Assessment and Plan Plan: 1 severe hyponatremia secondary to SIADH. This could be related to medication as the patient on a combination of Risperdal and Prozac and the patient is indicating excessive fluid which potentially can drop the sodium level. 2 generalized weakness and frequent falls secondary to above 3 advanced COPD 4 history of mediastinal lymphadenopathy that needs to be followed up on outpatient basis 5 diabetes mellitus type 2 6 schizophrenia 7 history of pansinusitis/mastoiditis 8 history of lacunar infarct with some residual right facial weakness 9 chronic hypoxic respiratory failure/chronic hypercapnic respiratory failure 10 chronic dyspnea secondary to above 11 previous hospitalization for a similar presentation of an acute hyponatremia and SIADH 12 previous hospitalization for aspiration pneumonia and ventilator dependent respiratory failure. 13 hyperlipidemia 14 left eye erythema/eyelid infection/conjunctivitis 15 smoker 16 cocaine in his urine drug screen Plan Fluid restriction Hypertonic saline solution and is being managed by nephrology and sodium is being checked every 4 hours with gradual correction not more than 10-12 milliequivalents over 24-hour period Continue the erythromycin eyedrops IV Rocephin as an empiric antibiotic coverage which will be also helpful was identified infection Management of COPD with DuoNeb nebulized treatments around the clock and IV Solu-Medrol Mediastinal lymphadenopathy needs to be followed up on outpatient basis CAT scan of the brain and neck was noted We need to make further decision regarding his Prozac and Risperdal which could be contributing to his SIADH. The patient also is an excessive drinker and all these things are factoring in his recurrent hyponatremia We'll continue to follow.
--- NOTE | 2019-08-18 11:40 | CONS ---
CONSULTATION REASON FOR CONSULT: Hyponatremia. HISTORY OF PRESENT ILLNESS: Patient is a 64-year-old male who was admitted to the hospital with weakness, mental status changes. He does have a history of hyponatremia. The patient was recently hospitalized in March with a sodium of 111 and prior admission again in December of 2018. The patient usually received 3% saline, mostly he is hypovolemic. It appears that he has not had good oral intake. Urine osmolality was 372 and 458 this admission. Previously his urine osmolality has been around as high as 721. Therefore, there was consideration for possible SIADH as well. Prior to admission, patient was on Prozac, Coreg, and risperidone. On this admission, sodium was 107 mEq/L. The patient was started on 3% saline and his sodium has increased to 114. Mentation has improved as well. Blood pressure was not low. No fever, chills, nausea, vomiting, abdominal pain or diarrhea. Past medical history of chronic hyponatremia, possibly related to his underlying psychiatric medications with component of SIADH, currently maintained on 3% saline which I will continue and monitor sodium closely. Urine osmolality was again on the higher side suggesting a component of SIADH. Patient needs regular and close monitoring of sodium as outpatient. PAST MEDICAL HISTORY: Also significant for hypertension, type 2 diabetes, schizophrenia. SOCIAL HISTORY: Positive for smoking daily. PAST SURGICAL HISTORY: Orthopedic surgery and sinus surgery. MEDICATIONS: At home prior to admission included Prozac, Lipitor, Pulmicort, aspirin, risperidone, Coreg, Lasix, prednisone, Protonix. ALLERGIES: Include SULFA. REVIEW OF SYSTEMS: As per HPI. Other systems negative. Patient has had some drainage from his left eye. PHYSICAL EXAMINATION: Blood pressure 121/80, heart rate 88 per minute, he is afebrile. Examination of the heart S1, S2. Examination of the lungs, decreased breath sounds at bases. Abdomen is soft, nontender. Examination of the lower extremities shows no evidence of edema. BIOFUELS MANAGER exam shows patient moving all 4 extremities. LABS: Show sodium 114, potassium of 4.5 this morning, creatinine 0.57. ASSESSMENT: 1. 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 The patient needs close monitoring of his sodium as outpatient to avoid frequent admissions. He should be maintained on fluid restriction. I will continue with the 3% saline for now and continue to monitor the sodium closely. He is advised to increase protein intake. Repeat labs in a.m. as well. 2. Schizophrenia. Consider change in medications given the chronic hyponatremia. 3. Hypertension, currently controlled. 4. Left eye drainage, maintained on erythromycin. PLAN: Continue with the 3% saline for now. Monitor electrolytes closely, fluid restriction. Increase oral protein intake. Consider change in antipsychotic medications if possible. The patient will need close monitoring of labs as outpatient to avoid repeated admissions. SYDNEE / JASIELN: [id number] /
[2019-08-18 12:08] LABS: Glucose,Whole Blood 104 mg/dL (75-99)
[2019-08-18] MEDS: INSULIN ASPART (NovoLOG) 100 UNIT/ML VIAL SQ SCH ×3 (12:14→20:23)
--- NOTE | 2019-08-18 13:09 | P.CONS ---
History of Present Illness - Reason for Consult Consult date: 08/18/19 leukocytosis, lymphadenopathy Requesting physician: Jacqueline Candelario - Chief Complaint AMS - History of Present Illness Mr. Valle is a pleasant 64-year-old male with a complex past medical history who we initially saw in consult 01/01 for elevated WBC. All of the differential was increased as well. Chart review showed this was present as far back as 2015 but, it is progressively worsening. Work up was negative for a prarproteinemia, MMA was high suggestive of functional B12 deficit, K/L were slightly elevated with near normal ratio, iron studies showed only a slight iron deficiency. Pt did not f/u. Currently admitted for AMS, hyponatremia. He is lethargic, aroused by loud voice and touch, he could not give us any history, denied current nausea, pain or needs. Review of Systems ROS unobtainable: due to mental status (able to get a few answers from him about how he was feeling, no Hx) Past Medical History Past Medical History: Diabetes Mellitus, Hypertension History of Any Multi-Drug Resistant Organisms: None Reported Past Surgical History: Orthopedic Surgery Additional Past Surgical History / Comment(s): sinus sx Past Anesthesia/Blood Transfusion Reactions: No Reported Reaction Past Psychological History: Schizophrenia Smoking Status: Current every day smoker Past Alcohol Use History: None Reported Past Drug Use History: None Reported Medications and Allergies Home Medications Medication Instructions Recorded Confirmed Type FLUoxetine HCL [PROzac] 20 mg PO DAILY #30 cap 07/10/16 08/18/19 Rx risperiDONE 3 mg PO BID #60 tablet 07/10/16 08/18/19 Rx Carvedilol [Coreg] 6.25 mg PO BID-W/MEALS tab 04/13/19 08/18/19 Rx Allergies Allergy/AdvReac Type Severity Reaction Status Date / Time Sulfa (Sulfonamide Allergy Rash/Hives Verified 03/29/19 12:35 Antibiotics) Physical Exam Vitals: Vital Signs Temp Pulse Resp BP Pulse Ox 08/18/19 09:00 88 14 121/80 92 L 08/18/19 08:26 80 08/18/19 08:16 86 08/18/19 08:15 86 08/18/19 08:00 98.8 F 89 21 105/82 94 L 08/18/19 07:00 89 18 126/82 94 L 08/18/19 06:00 89 18 122/78 95 08/18/19 05:00 94 17 101/89 95 08/18/19 04:00 98.7 F 92 13 110/75 95 08/18/19 03:00 90 19 114/84 94 L 08/18/19 02:00 91 15 128/77 94 L 08/18/19 01:00 91 17 101/77 94 L 08/18/19 00:00 98.6 F 91 18 102/79 96 08/17/19 23:00 90 17 132/88 95 08/17/19 22:00 90 16 135/90 96 08/17/19 21:00 86 17 138/88 95 08/17/19 20:41 98.1 F 89 14 140/86 94 L 08/17/19 19:39 88 08/17/19 19:29 84 08/17/19 18:10 88 20 142/101 95 08/17/19 18:00 104 H 18 137/93 99 08/17/19 17:00 80 20 137/93 95 08/17/19 16:46 88 20 149/104 95 08/17/19 15:46 86 20 138/96 95 08/17/19 15:00 134/102 08/17/19 14:46 20 08/17/19 14:41 98.8 F 87 20 134/102 97 Intake and Output 08/17/19 08/18/19 08/18/19 22:59 06:59 14:59 Intake Total 140 100 60 Output Total 1135 1015 240 Balance -995 -915 -180 Intake: IV 140 100 60 Sodium Chloride 3%( 140 100 60 Hypertonic) 500 ml @ 20 mls/hr IV .Q24H [facility] Rx#: [id number] Output: Urine 1135 1015 240 Uretheral (Hebert) 350 Other: Voiding Method Indwelling Catheter Indwelling Catheter Weight 90.718 kg 92.1 kg - Constitutional General appearance: cooperative, no acute distress, obese - EENT left scleral redness, eyellid swelling and redness, dry mouth Eyes: EOMI ENT: hearing grossly normal - Neck Neck: no lymphadenopathy - Respiratory Respiratory: bilateral: CTA, diminished - Cardiovascular Heart sounds: normal: S1, S2 Abnormal Heart Sounds: no systolic murmur, no diastolic murmur, no rub, no S3 Gallop, no S4 Gallop, no click, no other leg Peripheral Edema: bilateral: None - Gastrointestinal General gastrointestinal: no absent bowel sounds, no decreased bowel sounds, no distended, no hepatomegaly, no hyperactive bowel sounds, normal bowel sounds, no organomegaly, no rigid, no scaphoid, soft, no splenomegaly, no tenderness, no umbilical hernia, no ventral hernia - Integumentary scalp scabs (?folliculitis), rt posterior neck swelling with scabbed head, approx 2.5cm rt temporal black skin lesion - Neurologic grossly intact - Musculoskeletal Musculoskeletal: generalized weakness - Psychiatric lethargic, unclear to his situation Psychiatric: no A&O x's 3, no intact judgment & insight Results CBC & Chem 7: 08/18/19 05:24 08/18/19 09:18 Labs: Abnormal Lab Results - Last 24 Hours (Table) 08/17/19 08/17/19 08/17/19 Range/Units 14:54 14:54 15:34 WBC 22.7 H (3.8-10.6) k/uL Neutrophils # 12.1 H (1.3-7.7) k/uL Neutrophils # (Manual) (1.3-7.7) k/uL Lymphocytes # 7.5 H (1.0-4.8) k/uL Lymphocytes # (Manual) (1.0-4.8) k/uL Monocytes # 1.4 H (0-1.0) k/uL Sodium 107 L* (137-145) mmol/L Chloride 72 L* (98-107) mmol/L BUN 6 L (9-20) mg/dL Creatinine 0.47 L (0.66-1.25) mg/dL Glucose 110 H (74-99) mg/dL POC Glucose (mg/dL) 119 H (75-99) mg/dL Osmolality (280-301) mosm/kg Calcium 8.3 L (8.4-10.2) mg/dL Alkaline Phosphatase 128 H (38-126) U/L Urine Protein (Negative) Urine Glucose (UA) (Negative) Urine Ketones (Negative) Urine Blood (Negative) Urine RBC (0-5) /hpf Urine Mucus (None) /hpf Urine Cocaine Screen (NotDetected) 08/17/19 08/17/19 08/17/19 Range/Units 17:45 18:59 20:15 WBC (3.8-10.6) k/uL Neutrophils # (1.3-7.7) k/uL Neutrophils # (Manual) (1.3-7.7) k/uL Lymphocytes # (1.0-4.8) k/uL Lymphocytes # (Manual) (1.0-4.8) k/uL Monocytes # (0-1.0) k/uL Sodium (137-145) mmol/L Chloride (98-107) mmol/L BUN (9-20) mg/dL Creatinine (0.66-1.25) mg/dL Glucose (74-99) mg/dL POC Glucose (mg/dL) 135 H (75-99) mg/dL Osmolality 228 L* (280-301) mosm/kg Calcium (8.4-10.2) mg/dL Alkaline Phosphatase (38-126) U/L Urine Protein Trace H (Negative) Urine Glucose (UA) Trace H (Negative) Urine Ketones Trace H (Negative) Urine Blood Trace H (Negative) Urine RBC 8 H (0-5) /hpf Urine Mucus Rare H (None) /hpf Urine Cocaine Screen Detected H (NotDetected) 08/17/19 08/18/19 08/18/19 Range/Units 20:15 00:54 02:37 WBC (3.8-10.6) k/uL Neutrophils # (1.3-7.7) k/uL Neutrophils # (Manual) (1.3-7.7) k/uL Lymphocytes # (1.0-4.8) k/uL Lymphocytes # (Manual) (1.0-4.8) k/uL Monocytes # (0-1.0) k/uL Sodium 110 L* 113 L* (137-145) mmol/L Chloride (98-107) mmol/L BUN (9-20) mg/dL Creatinine (0.66-1.25) mg/dL Glucose (74-99) mg/dL POC Glucose (mg/dL) 109 H (75-99) mg/dL Osmolality (280-301) mosm/kg Calcium (8.4-10.2) mg/dL Alkaline Phosphatase (38-126) U/L Urine Protein (Negative) Urine Glucose (UA) (Negative) Urine Ketones (Negative) Urine Blood (Negative) Urine RBC (0-5) /hpf Urine Mucus (None) /hpf Urine Cocaine Screen (NotDetected) 08/18/19 08/18/19 08/18/19 Range/Units 05:24 05:24 06:25 WBC 21.5 H (3.8-10.6) k/uL Neutrophils # (1.3-7.7) k/uL Neutrophils # (Manual) 11.61 H (1.3-7.7) k/uL Lymphocytes # (1.0-4.8) k/uL Lymphocytes # (Manual) 9.25 H (1.0-4.8) k/uL Monocytes # (0-1.0) k/uL Sodium 113 L* (137-145) mmol/L Chloride 79 L (98-107) mmol/L BUN 8 L (9-20) mg/dL Creatinine 0.57 L (0.66-1.25) mg/dL Glucose (74-99) mg/dL POC Glucose (mg/dL) 114 H (75-99) mg/dL Osmolality (280-301) mosm/kg Calcium 8.0 L (8.4-10.2) mg/dL Alkaline Phosphatase (38-126) U/L Urine Protein (Negative) Urine Glucose (UA) (Negative) Urine Ketones (Negative) Urine Blood (Negative) Urine RBC (0-5) /hpf Urine Mucus (None) /hpf Urine Cocaine Screen (NotDetected) 08/18/19 08/18/19 Range/Units 08:52 09:18 WBC (3.8-10.6) k/uL Neutrophils # (1.3-7.7) k/uL Neutrophils # (Manual) (1.3-7.7) k/uL Lymphocytes # (1.0-4.8) k/uL Lymphocytes # (Manual) (1.0-4.8) k/uL Monocytes # (0-1.0) k/uL Sodium 114 L* (137-145) mmol/L Chloride (98-107) mmol/L BUN (9-20) mg/dL Creatinine (0.66-1.25) mg/dL Glucose (74-99) mg/dL POC Glucose (mg/dL) 103 H (75-99) mg/dL Osmolality (280-301) mosm/kg Calcium (8.4-10.2) mg/dL Alkaline Phosphatase (38-126) U/L Urine Protein (Negative) Urine Glucose (UA) (Negative) Urine Ketones (Negative) Urine Blood (Negative) Urine RBC (0-5) /hpf Urine Mucus (None) /hpf Urine Cocaine Screen (NotDetected) Chest x-ray: report reviewed CT scan - chest: report reviewed Assessment and Plan (1) Lymphadenopathy Narrative/Plan: CT AP evaluate adenopathy. Current Visit: Yes Status: Acute Priority: High Code(s): R59.1 - GENERALIZED ENLARGED LYMPH NODES SNOMED Code(s): 69944539 (2) Leukocytosis Narrative/Plan: Chronic but progressive. Flow cytometry requested on peripheral blood Current Visit: Yes Status: Chronic Priority: Medium Code(s): D72.829 - ELEVATED WHITE BLOOD CELL COUNT, UNSPECIFIED SNOMED Code(s): 059323723 Plan: Working pt up for concerns of lymphoma or hematological disorder. Did discuss with pt the lymph nodes are large and his blood counts are not normal and we are trying to figure out why. He seemed to understand some of the concerns and what we were planning. Possible future plan for core LN biopsy Dr Attests: I have performed H&P and developed impression and plan of care for patient, discussed with dictator. I agree with dictated note, documented as a scribe.
--- NOTE | 2019-08-18 13:38 | P.CNNES ---
History of Present Illness Consult date: 08/18/19 Requesting physician: Jacqueline Candelario Reason for Consult: Weakness, hyponatremia History of Present Illness: Patient is a 64-year-old male came to the hospital yesterday at 2:31 PM for generalized weakness and shortness of breath. Neurology was consulted for generalized weakness. Patient was found to be very hyponatremic with sodium of 107, and chloride 72 in the ER. Renal functions, hemoglobin normal. He was started on hypertonic saline 3% at a rate of 20 mL per hour.. Patient underwent CT head showed no acute intracranial abnormality. Mild patchy changes of chronic small vessel ischemic disease. Moderate to severe chronic paranasal sinus disease. Suspect underlying polyposis within the left nasal c avity. Possible acute right maxillary sinusitis. There is opacification of the right mastoid air cells. Correlate for any mastoid brain to exclude mastoiditis. On my review, there is definite evidence of ethmoid and maxillary sinus disease and slightly of the sphenoid sinus. CT of the cervical spine showed no fracture. Cervical and supraclavicular lymphadenopathy measuring up to 1.8 cm. Hematology has been consulted. Chest x-ray showed similar mild cardiomegaly. Interstitial prominence is unchanged. Possible bronchitis or chronic asthma. No definitive infiltrate. EKG shows normal sinus rhythm. Inferior infarct, age indeterminate. Patient's blood test shows WBC 21.5 with elevated neutrophils 11.6 and lymphocytes 9.25. Sodium 113, potassium 4.5, hemoglobin A1c 5.6 on 04/19/2019, liver panel normal. TSH normal. Urine drug screen positive for cocaine. Serum protein electrophoresis and immune fixation electrophoresis showed prominent protein peak in the gamma region, but negative for paraprotein back in February 2019. Rheumatoid factor negative, ANGELLA negative. Patient's B12 is 451 on 12/27/2018. Methylmalonic acid was elevated 0.80. RBC folate normal 697. On reviewing records, patient does have history of intermittent chronic hyponatremia. Patient takes carvedilol, risperidone and fluoxetine. Patient not able to provide any appropriate history because of mental status. Review of Systems ROS unobtainable: due to mental status Past Medical History Past Medical History: COPD, Diabetes Mellitus, Hypertension Additional Past Medical History / Comment(s): Previous history of CVA, schizophrenia, type 2 diabetes mellitus, history of SIADH with severe hypon atremia, history of mediastinal lymphadenopathy, history of pansinusitis with possible mastoiditis on a CAT scan of the brain and MRI of the brain, history of lacunar infarct with some right-sided facial weakness. History of COPD History of Any Multi-Drug Resistant Organisms: None Reported Past Surgical History: Orthopedic Surgery Additional Past Surgical History / Comment(s): sinus sx Past Anesthesia/Blood Transfusion Reactions: No Reported Reaction Past Psychological History: Schizophrenia Smoking Status: Current every day smoker Past Alcohol Use History: None Reported Past Drug Use History: None Reported Medications and Allergies Home Medications Medication Instructions Recorded Confirmed Type FLUoxetine HCL [PROzac] 20 mg PO DAILY #30 cap 07/10/16 08/18/19 Rx risperiDONE 3 mg PO BID #60 tablet 07/10/16 08/18/19 Rx Carvedilol [Coreg] 6.25 mg PO BID-W/MEALS tab 04/13/19 08/18/19 Rx Allergies Allergy/AdvReac Type Severity Reaction Status Date / Time Sulfa (Sulfonamide Allergy Rash/Hives Verified 03/29/19 12:35 Antibiotics) Physical Examination - Vital Signs Vital Signs: Vital Signs Temp Pulse Resp BP Pulse Ox 08/18/19 11:38 80 08/18/19 11:29 74 08/18/19 11:00 79 12 120/86 97 08/18/19 10:00 85 15 123/90 96 08/18/19 09:00 88 14 121/80 92 L 08/18/19 08:26 80 08/18/19 08:16 86 08/18/19 08:15 86 08/18/19 08:00 98.8 F 89 21 105/82 94 L 08/18/19 07:00 89 18 126/82 94 L 08/18/19 06:00 89 18 122/78 95 08/18/19 05:00 94 17 101/89 95 08/18/19 04:00 98.7 F 92 13 110/75 95 08/18/19 03:00 90 19 114/84 94 L 08/18/19 02:00 91 15 128/77 94 L 08/18/19 01:00 91 17 101/77 94 L 08/18/19 00:00 98.6 F 91 18 102/79 96 08/17/19 23:00 90 17 132/88 95 08/17/19 22:00 90 16 135/90 96 08/17/19 21:00 86 17 138/88 95 08/17/19 20:41 98.1 F 89 14 140/86 94 L 08/17/19 19:39 88 08/17/19 19:29 84 08/17/19 18:10 88 20 142/101 95 08/17/19 18:00 104 H 18 137/93 99 08/17/19 17:00 80 20 137/93 95 08/17/19 16:46 88 20 149/104 95 08/17/19 15:46 86 20 138/96 95 08/17/19 15:00 134/102 08/17/19 14:46 20 08/17/19 14:41 98.8 F 87 20 134/102 97 Intake and Output 08/17/19 08/18/19 08/18/19 22:59 06:59 14:59 Intake Total 140 100 150 Output Total 1135 1015 300 Balance -995 -915 -150 Intake: IV 140 100 100 Sodium Chloride 3%( 140 100 100 Hypertonic) 500 ml @ 20 mls/hr IV .Q24H [facility] Rx#: [id number] Intake, IV Titration 50 Amount cefTRIAXone 1 gm In 50 Sodium Chloride 0.9% 50 ml @ 100 mls/hr IVPB Q24HR [facility] Rx#:[id number] Output: Urine 1135 1015 300 Uretheral (Hebert) 350 Other: Voiding Method Indwelling Catheter Indwelling Catheter Indwelling Catheter Weight 90.718 kg 92.1 kg On examination patient is a late middle aged male, appears older than his stated age. He appears encephalopathic. Patient was very somnolent, kody oling when I entered the room. Slowly he did become more arousable and by the end of the evaluation, he was much more awake. Patient knows that he is in [facility] in [facility] speech was slightly slow, but no aphasia or dysarthria. Patient continues to be somewhat groggy, slightly lethargic. Attention span and concentration is decreased. On cranial examination pupils are round and reacting, visual mccartney could not be tested. Face is symmetric and tongue protrudes the midline. Palatal elevation normal. Hearing could not be tested although he does respond to usual conversation well. Shoulder shrug could not be tested. On muscle strength testing patient is diffusely weak with some degree of decreased endurance and lack of participation. 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 Reflexes are diffusely hypoactive and plantars are downgoing. Sensory appears equal. Cerebellar functions could not be tested because of patient's noncooperation. Tone is normal. Bulk of muscles normal. No fasciculations. Gait not tested. Patient has mild peripheral edema. S1 and S2 audible. Patient has some coarse crackles. Slightly congested. Patient's left upper eyelid is slightly swollen and bruised. Results - Laboratory Findings CBC and BMP: 08/18/19 05:24 08/18/19 09:18 Abnormal Lab Findings: Abnormal Labs 08/17/19 08/17/19 08/17/19 14:54 14:54 15:34 WBC 22.7 H Neutrophils # 12.1 H Neutrophils # (Manual) Lymphocytes # 7.5 H Lymphocytes # (Manual) Monocytes # 1.4 H Sodium 107 L* Chloride 72 L* BUN 6 L Creatinine 0.47 L Glucose 110 H POC Glucose (mg/dL) 119 H Osmolality Calcium 8.3 L Alkaline Phosphatase 128 H Urine Protein Urine Glucose (UA) Urine Ketones Urine Blood Urine RBC Urine Mucus Urine Cocaine Screen 08/17/19 08/17/19 08/17/19 17:45 18:59 20:15 WBC Neutrophils # Neutrophils # (Manual) Lymphocytes # Lymphocytes # (Manual) Monocytes # Sodium Chloride BUN Creatinine Glucose POC Glucose (mg/dL) 135 H Osmolality 228 L* Calcium Alkaline Phosphatase Urine Protein Trace H Urine Glucose (UA) Trace H Urine Ketones Trace H Urine Blood Trace H Urine RBC 8 H Urine Mucus Rare H Urine Cocaine Screen Detected H 08/17/19 08/18/19 08/18/19 20:15 00:54 02:37 WBC Neutrophils # Neutrophils # (Manual) Lymphocytes # Lymphocytes # (Manual) Monocytes # Sodium 110 L* 113 L* Chloride BUN Creatinine Glucose POC Glucose (mg/dL) 109 H Osmolality Calcium Alkaline Phosphatase Urine Protein Urine Glucose (UA) Urine Ketones Urine Blood Urine RBC Urine Mucus Urine Cocaine Screen 08/18/19 08/18/19 08/18/19 05:24 05:24 06:25 WBC 21.5 H Neutrophils # Neutrophils # (Manual) 11.61 H Lymphocytes # Lymphocytes # (Manual) 9.25 H Monocytes # Sodium 113 L* Chloride 79 L BUN 8 L Creatinine 0.57 L Glucose POC Glucose (mg/dL) 114 H Osmolality Calcium 8.0 L Alkaline Phosphatase Urine Protein Urine Glucose (UA) Urine Ketones Urine Blood Urine RBC Urine Mucus Urine Cocaine Screen 08/18/19 08/18/19 08:52 09:18 WBC Neutrophils # Neutrophils # (Manual) Lymphocytes # Lymphocytes # (Manual) Monocytes # Sodium 114 L* Chloride BUN Creatinine Glucose POC Glucose (mg/dL) 103 H Osmolality Calcium Alkaline Phosphatase Urine Protein Urine Glucose (UA) Urine Ketones Urine Blood Urine RBC Urine Mucus Urine Cocaine Screen Assessment and Plan Assessment: * Altered mental status, likely related to toxic metabolic encephalopathy. Patient had severe hypotonic hyponatremia of 107 on presentation. Sodium has improved, but still very low at 114. * Generalized weakness, perhaps due to severe hyponatremia, and some degree of encephalopathy with decreased endurance and participation with examination. Rule out myopathic process. * Advanced COPD. * Lymphadenopathy, leukocytosis, hematology on board * Cocaine in urine Plan: * Patient's weakness is partly related to significant encephalopathy. Patient is undergoing repeat sodium level at this time. Avoid rapid correction of hyponatremia to prevent central pontine myelinolysis. * We will check CPK, aldolase, ESR, B12 levels. * Neurology will follow. Hopefully once his hyponatremia and his mentation improves, the patient would be able to participate better with neurological examination.
[2019-08-18 16:25] LABS: Glucose,Whole Blood 106 mg/dL (75-99)
[2019-08-18] MEDS ORDERED: SODIUM CHLORIDE 3%(HYPERTONIC) 500 ML IV SCH (18:15)
--- NOTE | 2019-08-18 18:18 | P.HPIM ---
History of Present Illness H&P Date: 08/18/19 Chief Complaint: Weakness, History of presenting complaint: This is 64-year-old patient of Dr. Shah. Patient was here in March of this year and was then admitted with COPD exacerbation with acute hypoxic and hypercapnic respiratory failure, also an acute CVA with a lacunar infarct, severe hyponatremia diabetes type 2 schizophrenia. Patient is nonsmoker. Patient was now sent in by his roommate for some shortness of breath weak and tired. Patient is some chronic left-sided weakness. Patient rather tired not willing to give too much of history. Denies any fever and chills. This feeling tired and rundown. No headaches. Please been falling as a trauma to the right foot. Slight bruising. Patient's found to have a sodium of 107 hence was admitted to the ICU. He was started by a tonic saline. Patient is to be short of breath and wheezing also got a cough. Apparently the patient has been taking cocaine. Review of systems: GEN.: Tired and lethargic EYES: None HEENT: None NECK: None RESPIRATORY: Short of breath cough, wheezing CARDIOVASCULAR: None GASTROINTESTINAL: None GENITOURINARY: None MUSCULOSKELETAL: Some joint pains LYMPHATICS: None HEMATOLOGICAL: None PSYCHIATRY: Unable to assess] NEUROLOGICAL: [Tired lethargic with no focal symptoms. Patient's chronic left- sided weakness Past medical history to include: COPD, severe hyponatremia, mediastinal lymphadenopathy cause unknown, diabetes mellitus type 2, schizophrenia, smoker, previous CVA and left-sided weakness SIADH, Social history: Apparently lives with a roommate. Smoker. History of substance abuse in the past. Patient has a legal guardian from the public office Family history: Patient cannot tell Physical examination: VITAL SIGNS: 98.8, 87, 20, 134-102, 97% on room air-up on presentation GENERAL: [BMI 28.3, somewhat unkempt, laying in bed lethargic but arousable. EYES: Pupils equal. Conjunctiva normal. HEENT: External appearance of nose and ears normal, oral cavity-poor hygiene. NECK: JVD not raised; masses not palpable. HEART: First and second heart sounds are normal; no edema. LUNGS: Respiratory rate increased, decreased breath sound wheezing. ABDOMEN: Soft, nontender, liver spleen not palpable, no masses palpable. PSYCH: Lethargic but arousable cannot assess furtherl. NEUROLOGICAL: [Cranial nerves grossly intact; no facial asymmetry, some left- sided weakness LYMPHATICS: No lymph nodes palpable in the axilla and neck INVESTIGATIONS, reviewed in the clinical context: White count 22.7 hemoglobin 14.5 platelets 195 sodium 107 chloride 72 creatinine 0.47 serum osmolality 228 albumin 3.9 albumin 3.9 UA positive for protein glucose ketones Urine drug screen positive for cocaine Computed tomography scan of the brain and I-otcmu-pvlmmllb-to-severe chronic Nasal sinus disease, suspect polyposis no fracture. Chest x-ray film personally reviewed by me-infiltrate acute versus chronic EKG tracing personally reviewed by me-no sinus rhythm Right foot x-ray-no evidence of fracture Assessment: -Severe symptomatic hypoosmolar hyponatremia with known SIADH -Probable aspiration pneumonia -Acute COPD exacerbation and a nonsmoker -Chronic left hemiparesis from prior stroke -Essential hypertension -Chronic nicotine dependence cigarette smoker -Acute metabolic encephalopathy and delirium from severe electrolyte abnormality and infection -Blunt injury to the right foot likely secondary to fall Plan: Patient is put on hypertonic saline. IV Solu-Medrol, bronchodilators.. IV ceftriaxone for antibiotic. Aspiration precautions. Consultation made to laster hand and revenue cycle analyst. Also neurologist. Accu-Cheks will be done. Patient is in the ICU. Past Medical History Past Medical History: Diabetes Mellitus, Hypertension History of Any Multi-Drug Resistant Organisms: None Reported Past Surgical History: Orthopedic Surgery Additional Past Surgical History / Comment(s): sinus sx Past Anesthesia/Blood Transfusion Reactions: No Reported Reaction Past Psychological History: Schizophrenia Smoking Status: Current every day smoker Past Alcohol Use History: None Reported Past Drug Use History: None Reported Medications and Allergies Home Medications Medication Instructions Recorded Confirmed Type FLUoxetine HCL [PROzac] 20 mg PO DAILY #30 cap 07/10/16 08/18/19 Rx risperiDONE 3 mg PO BID #60 tablet 07/10/16 08/18/19 Rx Carvedilol [Coreg] 6.25 mg PO BID-W/MEALS tab 04/13/19 08/18/19 Rx Allergies Allergy/AdvReac Type Severity Reaction Status Date / Time Sulfa (Sulfonamide Allergy Rash/Hives Verified 03/29/19 12:35 Antibiotics) Physical Exam Vitals: Vital Signs Temp Pulse Resp BP Pulse Ox 08/18/19 09:00 88 14 121/80 92 L 08/18/19 08:26 80 08/18/19 08:16 86 08/18/19 08:15 86 08/18/19 08:00 98.8 F 89 21 105/82 94 L 08/18/19 07:00 89 18 126/82 94 L 08/18/19 06:00 89 18 122/78 95 08/18/19 05:00 94 17 101/89 95 08/18/19 04:00 98.7 F 92 13 110/75 95 08/18/19 03:00 90 19 114/84 94 L 08/18/19 02:00 91 15 128/77 94 L 08/18/19 01:00 91 17 101/77 94 L 08/18/19 00:00 98.6 F 91 18 102/79 96 08/17/19 23:00 90 17 132/88 95 08/17/19 22:00 90 16 135/90 96 08/17/19 21:00 86 17 138/88 95 08/17/19 20:41 98.1 F 89 14 140/86 94 L 08/17/19 19:39 88 08/17/19 19:29 84 08/17/19 18:10 88 20 142/101 95 08/17/19 18:00 104 H 18 137/93 99 08/17/19 17:00 80 20 137/93 95 08/17/19 16:46 88 20 149/104 95 08/17/19 15:46 86 20 138/96 95 08/17/19 15:00 134/102 08/17/19 14:46 20 08/17/19 14:41 98.8 F 87 20 134/102 97 Intake and Output 08/17/19 08/18/19 08/18/19 22:59 06:59 14:59 Intake Total 140 100 60 Output Total 1135 1015 240 Balance -995 -915 -180 Intake: IV 140 100 60 Sodium Chloride 3%( 140 100 60 Hypertonic) 500 ml @ 20 mls/hr IV .Q24H [facility] Rx#: [id number] Output: Urine 1135 1015 240 Uretheral (Hebert) 350 Other: Voiding Method Indwelling Catheter Indwelling Catheter Weight 90.718 kg 92.1 kg Results CBC & Chem 7: 08/18/19 05:24 08/18/19 16:44 Labs: Abnormal Lab Results - Last 24 Hours (Table) 08/17/19 08/17/19 08/17/19 Range/Units 14:54 14:54 15:34 WBC 22.7 H (3.8-10.6) k/uL Neutrophils # 12.1 H (1.3-7.7) k/uL Neutrophils # (Manual) (1.3-7.7) k/uL Lymphocytes # 7.5 H (1.0-4.8) k/uL Lymphocytes # (Manual) (1.0-4.8) k/uL Monocytes # 1.4 H (0-1.0) k/uL Sodium 107 L* (137-145) mmol/L Chloride 72 L* (98-107) mmol/L BUN 6 L (9-20) mg/dL Creatinine 0.47 L (0.66-1.25) mg/dL Glucose 110 H (74-99) mg/dL POC Glucose (mg/dL) 119 H (75-99) mg/dL Osmolality (280-301) mosm/kg Calcium 8.3 L (8.4-10.2) mg/dL Alkaline Phosphatase 128 H (38-126) U/L Urine Protein (Negative) Urine Glucose (UA) (Negative) Urine Ketones (Negative) Urine Blood (Negative) Urine RBC (0-5) /hpf Urine Mucus (None) /hpf Urine Cocaine Screen (NotDetected) 08/17/19 08/17/19 08/17/19 Range/Units 17:45 18:59 20:15 WBC (3.8-10.6) k/uL Neutrophils # (1.3-7.7) k/uL Neutrophils # (Manual) (1.3-7.7) k/uL Lymphocytes # (1.0-4.8) k/uL Lymphocytes # (Manual) (1.0-4.8) k/uL Monocytes # (0-1.0) k/uL Sodium (137-145) mmol/L Chloride (98-107) mmol/L BUN (9-20) mg/dL Creatinine (0.66-1.25) mg/dL Glucose (74-99) mg/dL POC Glucose (mg/dL) 135 H (75-99) mg/dL Osmolality 228 L* (280-301) mosm/kg Calcium (8.4-10.2) mg/dL Alkaline Phosphatase (38-126) U/L Urine Protein Trace H (Negative) Urine Glucose (UA) Trace H (Negative) Urine Ketones Trace H (Negative) Urine Blood Trace H (Negative) Urine RBC 8 H (0-5) /hpf Urine Mucus Rare H (None) /hpf Urine Cocaine Screen Detected H (NotDetected) 08/17/19 08/18/19 08/18/19 Range/Units 20:15 00:54 02:37 WBC (3.8-10.6) k/uL Neutrophils # (1.3-7.7) k/uL Neutrophils # (Manual) (1.3-7.7) k/uL Lymphocytes # (1.0-4.8) k/uL Lymphocytes # (Manual) (1.0-4.8) k/uL Monocytes # (0-1.0) k/uL Sodium 110 L* 113 L* (137-145) mmol/L Chloride (98-107) mmol/L BUN (9-20) mg/dL Creatinine (0.66-1.25) mg/dL Glucose (74-99) mg/dL POC Glucose (mg/dL) 109 H (75-99) mg/dL Osmolality (280-301) mosm/kg Calcium (8.4-10.2) mg/dL Alkaline Phosphatase (38-126) U/L Urine Protein (Negative) Urine Glucose (UA) (Negative) Urine Ketones (Negative) Urine Blood (Negative) Urine RBC (0-5) /hpf Urine Mucus (None) /hpf Urine Cocaine Screen (NotDetected) 08/18/19 08/18/19 08/18/19 Range/Units 05:24 05:24 06:25 WBC 21.5 H (3.8-10.6) k/uL Neutrophils # (1.3-7.7) k/uL Neutrophils # (Manual) 11.61 H (1.3-7.7) k/uL Lymphocytes # (1.0-4.8) k/uL Lymphocytes # (Manual) 9.25 H (1.0-4.8) k/uL Monocytes # (0-1.0) k/uL Sodium 113 L* (137-145) mmol/L Chloride 79 L (98-107) mmol/L BUN 8 L (9-20) mg/dL Creatinine 0.57 L (0.66-1.25) mg/dL Glucose (74-99) mg/dL POC Glucose (mg/dL) 114 H (75-99) mg/dL Osmolality (280-301) mosm/kg Calcium 8.0 L (8.4-10.2) mg/dL Alkaline Phosphatase (38-126) U/L Urine Protein (Negative) Urine Glucose (UA) (Negative) Urine Ketones (Negative) Urine Blood (Negative) Urine RBC (0-5) /hpf Urine Mucus (None) /hpf Urine Cocaine Screen (NotDetected) 08/18/19 08/18/19 Range/Units 08:52 09:18 WBC (3.8-10.6) k/uL Neutrophils # (1.3-7.7) k/uL Neutrophils # (Manual) (1.3-7.7) k/uL Lymphocytes # (1.0-4.8) k/uL Lymphocytes # (Manual) (1.0-4.8) k/uL Monocytes # (0-1.0) k/uL Sodium 114 L* (137-145) mmol/L Chloride (98-107) mmol/L BUN (9-20) mg/dL Creatinine (0.66-1.25) mg/dL Glucose (74-99) mg/dL POC Glucose (mg/dL) 103 H (75-99) mg/dL Osmolality (280-301) mosm/kg Calcium (8.4-10.2) mg/dL Alkaline Phosphatase (38-126) U/L Urine Protein (Negative) Urine Glucose (UA) (Negative) Urine Ketones (Negative) Urine Blood (Negative) Urine RBC (0-5) /hpf Urine Mucus (None) /hpf Urine Cocaine Screen (NotDetected)
[2019-08-18 19:36] LABS: Glucose,Whole Blood 131 mg/dL (75-99)
[2019-08-18] MEDS: ATORVASTATIN 40 MG TAB PO SCH (20:46)
[2019-08-18] MEDS: IOPAMIDOL CONTRAST (ORAL USE) VIAL PO PRN ×2 (20:46→21:48)
--- NOTE | 2019-08-18 23:06 | CT ---
EXAMINATION TYPE: CT abdomen pelvis w con DATE OF EXAM: 08/18/2019 COMPARISON: None HISTORY: Lymphadenopathy. CT DLP: 1619.6 mGycm Automated exposure control for dose reduction was used. CONTRAST: Performed with IV Contrast, patient injected with 100 mL of Isovue 300. There is some patchy infiltrate and atelectasis at the lung bases. Heart is slightly enlarged. There is no pericardial effusion. There is small hiatal hernia. Liver shows no focal defect. Spleen is enlarged and measures 17 cm. There is no pancreatic mass. All bladder appears normal. The bile ducts are not dilated. There is 2 cm low-density rounded left adrenal mass. There are scattered para-aortic lymph nodes that measure up to 12 mm. Kidneys have normal size and contour. There is normal contrast opacification. T here is no hydronephrosis. Ureters are not dilated. There is Hebert catheter in the urinary bladder. T here is no inguinal hernia. There is no free fluid in the pelvis. There is oral contrast in the small bowel extending to the ileo cecal valve. The appendix appears normal. There is no sign of a bowel obstruction. There is no mesent norberto edema. There is no ascites or free air. There is moderate spondylosis at L4-5 with vacuum disc. There is multilevel spondylotic changes in th e thoracic and lumbar spine. The bony pelvis is intact. IMPRESSION: Moderate splenomegaly. Mild retroperitoneal lymphadenopathy with lymph nodes that measure up to 12 mm . Low-density left adrenal mass suggestive of benign disease. Bilateral lower lobe pulmonary consolidation and atelectasis.
[2019-08-19] MEDS: ERYTHROMYCIN 5 MG/GM OPHTH OINT 3.5 GM TUBE LEFT EYE SCH ×7 (00:43→23:17)
[2019-08-19] MEDS: HEPARIN SODIUM,PORCINE 5,000 UNIT/ML 1 ML VIAL SQ SCH ×4 (00:43→23:17)
[2019-08-19 05:08] LABS: African American GFR (CKD) >90 (>60 ml/min/1.73 sqM); Anion Gap 8 mmol/L; Blood Urea Nitrogen 12 mg/dL (9-20); Calcium 8.5 mg/dL (8.4-10.2); Carbon Dioxide 26 mmol/L (22-30); Chloride 88 mmol/L (98-107); Glucose 96 mg/dL (74-99); Non-African American GFR(CKD) >90 (>60 ml/min/1.73 sqM); Sodium 122 mmol/L (137-145)
[2019-08-19 05:12] LABS: HCT 41.7 % (39.0-53.0); HGB 14.3 gm/dL (13.0-17.5); MCHC 34.3 g/dL (31.0-37.0); MCV 90.3 fL (80.0-100.0); Mean Platelet Volume 8.4; Platelet Count 139 k/uL (150-450); RBC 4.62 m/uL (4.30-5.90); RDW 13.4 % (11.5-15.5)
[2019-08-19 05:15] LABS: Potassium 5.3 mmol/L (3.5-5.1)
[2019-08-19 05:38] LABS: Lymphocytes # (M) 6.66 k/uL (1.0-4.8); Neutrophils # (M) 10.44 k/uL (1.3-7.7); Neutrophils % (M) 58 %; Nucleated Red Blood Cells 0 /100 WBC (0-0); Total Cells Counted 100; Toxic Vacuolation Present
[2019-08-19] MEDS: INSULIN ASPART (NovoLOG) 100 UNIT/ML VIAL SQ SCH ×4 (06:06→19:42)
[2019-08-19 06:07] LABS: Glucose,Whole Blood 96 mg/dL (75-99)
[2019-08-19] MEDS: PANTOPRAZOLE 40 MG TABLET PO SCH (06:14)
[2019-08-19] MEDS: IPRATROPIUM-ALBUTEROL 3 ML NEB INHALATION SCH ×4 (06:32→20:41)
[2019-08-19] MEDS: FORMOTEROL FUMARATE 20 MCG/2 ML NEBU INHALATION SCH ×2 (06:32→20:41)
[2019-08-19] MEDS: BUDESONIDE 1 MG/2 ML NEBU INHALATION SCH ×2 (06:32→20:41)
--- NOTE | 2019-08-19 06:47 | XR ---
EXAMINATION TYPE: XR chest 1V portable DATE OF EXAM: 08/19/2019 CLINICAL HISTORY: Difficulty breathing and COPD progress study. TECHNIQUE: Single AP portable upright view of the chest is obtained. COMPARISON: Chest x-ray from one day earlier and older studies. CT chest May 11, 2019. FINDINGS: There is background chronic emphysematous change and cardiomegaly with atherosclerotic tho racic aorta. Persistent bibasilar opacities are identified new from 2 days earlier, some improvement in right basilar opacity and volume loss from one day earlier. Prior x-ray report is presumed error. Osseous structures are intact. IMPRESSION: Chronic emphysematous change and cardiomegaly with bibasilar acute infiltrate and/or atel ectasis. Some improved aeration right lung base noted from one day earlier.
[2019-08-19] MEDS: AMPICILLIN-SULBACTAM 1.5 GM in SODIUM CHLORIDE 0.9% 50 ML IVPB SCH ×3 (08:33→19:44)
[2019-08-19] MEDS: CARVEDILOL 6.25 MG TAB PO SCH ×2 (08:33→18:22)
[2019-08-19] MEDS: ASPIRIN 325 MG TAB PO SCH (08:33)
[2019-08-19] MEDS: methylPREDNISolone SOD SUCCI 40 MG/ML 1 ML VIAL IV SCH ×2 (08:38→19:43)
--- NOTE | 2019-08-19 11:03 | P.PN ---
Subjective Progress Note Date: 08/19/19 63-year-old male patient with known history of schizophrenia maintained on a combination of risperidone and fluoxetine/Prozac by the previous hospital physician back in March 2019 for an aspiration pneumonia and severe hyponatremia. 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 He was treated with a hypertonic saline solution and he was treated for ventilator-dependent respiratory failure due to an extensive right lung pneumonia. He is also known to have COPD and hypertension and diabetes mellitus. The patient had a similar presentation where he was having generalized weakness and some degree of shortness of breath. He was asked to come in to the hospital and his roommate activated EMS services. The patient was having generalized weakness. The patient denied having any headaches or blurred vision or double vision and he denies having any numbness or tingling in his extremities. He denies having any nausea or vomiting. No constipation. No diarrhea. He had been falling and had trauma to his right foot and he had also some limited trauma to his head. He is a poor historian as such history is essentially unreliable. The patient had any shows sodium level of 107. He was started on the percent saline at the rate of 20 mL an hour and sodium gradually came up to 114 this morning. Currently is off the hypertonic saline solution. Mentation is improved. He has been bronchospastic congested and wheezy. The white cell count is 21. The osmolality of the urine was elevated at 458, urine sodium is at 63, serum osmolality is 228, LFTs are within normal, urine drug screen is positive for cocaine. The chest x-ray shows no acute abnormalities. The computed tomography scan of the head and the neck shows cervical and supraclavicular lymphadenopathy measuring up to 1.8 cm in size. He has also moderate to severe chronic paranasal sinus disease with underlying polyposis. He has also had some cervical spine disease. He has no intracranial abnormalities. There is chronic small vessel ischemic disease. On 08/19/2019 and seeing the patient for a follow-up. The covid 19 evaluation came back negative. The patient is looking well. No specific complaints. Overnight evaluation came back negative. The patient was felt to have some aspiration yesterday and the patient was placed nothing by mouth awaiting a swallow evaluation. He was having some issues with COPD exacerbation. I put him on IV Solu-Medrol. I also put him on empiric IV Rocephin. On today's evaluation going to remove the Rocephin and switch her to Unasyn as the patient may have had some aspiration. His left eye/eyelid infections improving. His sodium level is also improved. He was on hypertonic saline and this was discontinued as the patient's sodium level has been uptrending. Sodium level is up to 122. His mental status is adequate. He is not having any focal neurological deficit. The white cell count is 18. Renal function stable. Objective - Vital Signs Vital signs: Vital Signs Temp 97.8 F 08/19/19 08:00 Pulse 75 08/19/19 10:57 Resp 13 08/19/19 10:00 BP 132/91 08/19/19 10:00 Pulse Ox 100 08/19/19 10:00 Intake & Output 08/18/19 08/19/19 08/19/19 18:59 06:59 18:59 Intake Total 310 1120 50 Output Total 1809 2085 195 Balance -1499 -965 -145 Weight 97.7 kg Intake: IV 260 40 Sodium Chloride 3%( 260 40 Hypertonic) 500 ml @ 20 mls/hr IV .Q24H [facility] Rx#: [id number] Intake, IV Titration 50 50 Amount Ampicillin-Sulbactam 1.5 50 gm In Sodium Chloride 0.9 % 50 ml @ 100 mls/hr IVPB Q6H [facility] Rx#:[id number] cefTRIAXone 1 gm In 50 Sodium Chloride 0.9% 50 ml @ 100 mls/hr IVPB Q24HR [facility] Rx#:[id number] Oral 1080 Output: Urine 1809 2085 195 Other: Voiding Method Indwelling Catheter Indwelling Catheter Indwelling Catheter - Exam The patient appeared well nourished and normally developed. Vital signs as documented. Head exam is unremarkable. No scleral icterus or corneal arcus noted. Neck is without jugular venous distension, thyromegaly, or carotid bruits. Carotid upstrokes are brisk bilaterally. Lungs are diminished bilaterally along with diffuse expiratory wheezing throughout the lung mccartney. Overall air entry is improved and the patient is less bronchospastic and wheezy compared to yesterday. Cardiac exam reveals the PMI to be normally sized and situated. Rhythm is regular. First and second heart sounds normal. No murmurs, rubs or gallops. Abdominal exam reveals normal bowel sounds, no masses, no organomegaly and no aortic enlargement. Extremities are nonedematous and both femoral and pedal pulses are normal.Examination of the skin revealed no evidence of significant rashes, suspicious appearing nevi or other concerning lesions. Neurologically awake and alert and is no focal neurological deficit. - Labs CBC & Chem 7: 08/19/19 04:42 08/19/19 09:25 Labs: Abnormal Lab Results - Last 24 Hours (Table) 08/18/19 08/18/19 08/18/19 Range/Units 12:07 13:07 16:23 WBC (3.8-10.6) k/uL Plt Count (150-450) k/uL Neutrophils # (Manual) (1.3-7.7) k/uL Lymphocytes # (Manual) (1.0-4.8) k/uL Sodium 115 L* (137-145) mmol/L Potassium (3.5-5.1) mmol/L Chloride (98-107) mmol/L Creatinine (0.66-1.25) mg/dL POC Glucose (mg/dL) 104 H 106 H (75-99) mg/dL Creatine Kinase 455 H (55-170) U/L 08/18/19 08/18/19 08/18/19 Range/Units 16:44 19:35 21:25 WBC (3.8-10.6) k/uL Plt Count (150-450) k/uL Neutrophils # (Manual) (1.3-7.7) k/uL Lymphocytes # (Manual) (1.0-4.8) k/uL Sodium 119 L* 119 L* (137-145) mmol/L Potassium (3.5-5.1) mmol/L Chloride (98-107) mmol/L Creatinine (0.66-1.25) mg/dL POC Glucose (mg/dL) 131 H (75-99) mg/dL Creatine Kinase (55-170) U/L 08/19/19 08/19/19 08/19/19 Range/Units 00:46 04:42 04:42 WBC 18.0 H (3.8-10.6) k/uL Plt Count 139 L (150-450) k/uL Neutrophils # (Manual) 10.44 H (1.3-7.7) k/uL Lymphocytes # (Manual) 6.66 H (1.0-4.8) k/uL Sodium 121 L 122 L (137-145) mmol/L Potassium 5.3 H (3.5-5.1) mmol/L Chloride 88 L (98-107) mmol/L Creatinine 0.63 L (0.66-1.25) mg/dL POC Glucose (mg/dL) (75-99) mg/dL Creatine Kinase (55-170) U/L 08/19/19 Range/Units 09:25 WBC (3.8-10.6) k/uL Plt Count (150-450) k/uL Neutrophils # (Manual) (1.3-7.7) k/uL Lymphocytes # (Manual) (1.0-4.8) k/uL Sodium 123 L (137-145) mmol/L Potassium (3.5-5.1) mmol/L Chloride (98-107) mmol/L Creatinine (0.66-1.25) mg/dL POC Glucose (mg/dL) (75-99) mg/dL Creatine Kinase (55-170) U/L Microbiology - Last 24 Hours (Table) 08/18/19 09:15 Gram Stain - Preliminary Eye - Left Eye Culture - Preliminary Assessment and Plan Plan: 1 severe hyponatremia secondary to SIADH. This could be related to medication as the patient on a combination of Risperdal and Prozac and the patient is indicating excessive fluid which potentially can drop the sodium level. The pa tient was treated with hypertonic saline solution 3%, sodium level is up to 123. The saline solution was discontinued and the patient is receiving fluid restriction for now. Nephrology is on the case. 2 generalized weakness and frequent falls secondary to above 3 advanced COPD 4 history of mediastinal lymphadenopathy that needs to be followed up on outpatient basis, CAT scan of the abdomen was also done by hematology oncology and there are some nonspecific nonenlarged abdominal lymph nodes noted. This is to be worked up on outpatient basis. 5 diabetes mellitus type 2 6 schizophrenia 7 history of pansinusitis/mastoiditis 8 history of lacunar infarct with some residual right facial weakness 9 chronic hypoxic respiratory failure/chronic hypercapnic respiratory failure 10 chronic dyspnea secondary to above 11 previous hospitalization for a similar presentation of an acute hyponatremia and SIADH 12 previous hospitalization for aspiration pneumonia and ventilator dependent respiratory failure. 13 hyperlipidemia 14 left eye erythema/eyelid infection/conjunctivitis 15 smoker 16 cocaine in his urine drug screen 17 suspect aspiration and the patient will undergo a swallow evaluation today. He is currently nothing by mouth pending swallow evaluation. Plan Fluid restriction Monitor sodium level Switch IV Rocephin at a patient with IV Unasyn Management of COPD with DuoNeb nebulized treatments around the clock and IV Solu-Medrol Mediastinal lymphadenopathy needs to be followed up on outpatient basis CAT scan of the brain and neck was noted, CAT scan of the abdomen and pelvis was also noted. We need to make further decision regarding his Prozac and Risperdal which could be contributing to his SIADH. The patient also is an excessive drinker and all these things are factoring in his recurrent hyponatremia Swallow evaluation regarding the possibility of aspiration We'll continue to follow.
[2019-08-19 12:00] LABS: Glucose,Whole Blood 126 mg/dL (75-99)
--- NOTE | 2019-08-19 15:35 | PN ---
PROGRESS NOTE Patient is seen for followup for hyponatremia. Patient has a history of bipolar disorder. He does have a history of chronic hyponatremia and was admitted to the hospital with a sodium of 107 with mental status changes. The patient was on 3% saline. His sodium improved to 119 yesterday, and the 3% saline was discontinued. His sodium slowly continues to improve on its own. The patient is maintained on fluid restriction of about 1500 mL. Urine osmolality was 458. Currently patient is awake, comfortable. Mentation has improved significantly. PHYSICAL EXAMINATION: On examination, blood pressure was 155/97, heart rate 86 per minute. He is afebrile. EXAMINATION OF THE HEART: S1 and S2. EXAMINATION OF LUNGS: Bilateral breath sounds are heard. ABDOMEN: Soft, non-tender. Examination of lower extremities shows no evidence of edema. Patient's left eyelid is red, and some drainage is noted. OFFICE COORDINATOR exam is grossly intact. Patient is moving all 4 extremities. LABS: Labs show sodium 123 today. Potassium was 5.3, chloride 88, BUN 12, serum creatinine 0.63. ASSESSMENT: 1. Hyponatremia with previous history of hyponatremia on previous admissions, mostly associated with syndrome of inappropriate antidiuretic hormone. Urine osmolality has been as high as 721 on his previous admissions. Currently it is at 458. Patient is status post 3% saline on initial admission, currently maintained on fluid restriction. He is eating well and serum sodium continues to increase. Patient was on Prozac and risperidone at home, both of which are currently on hold. 2. Encephalopathy, mostly associated with severe electrolyte imbalance and hyponatremia, currently improved. 3. History of bipolar disorder. 4. Left eye blepharitis and conjunctivitis, maintained on erythromycin locally. 5. Hypertension, currently controlled. 6. History of vent-dependent respiratory failure associated with pneumonia previously. 7. Mediastinal lymphadenopathy, to be worked up. PLAN: Continue off of 3% saline. Continue to encourage increased oral intake. Maintain fluid restriction. Repeat labs. Repeat sodium q.8 hours for now. MMODL / IJN: [id number] /
--- NOTE | 2019-08-19 16:34 | P.PN ---
Progress Note - Text Progress Note Date: 08/19/19 Chief Complaint: Weakness, History of presenting complaint: This is 64-year-old patient of Dr. Shah. Patient was here in March of this year and was then admitted with COPD exacerbation with acute hypoxic and hypercapnic respiratory failure, also an acute CVA with a lacunar infarct, severe hyponatremia diabetes type 2 schizophrenia. Patient is nonsmoker. Patient was now sent in by his roommate for some shortness of breath weak and tired. Patient is some chronic left-sided weakness. Patient rather tired not willing to give too much of history. Denies any fever and chills. This feeling tired and rundown. No headaches. Please been falling as a trauma to the right foot. Slight bruising. Patient's found to have a sodium of 107 hence was admitted to the ICU. He was started on hypertonic saline. Patient is to be short of breath and wheezing also got a cough. Apparently the patient has been taking cocaine. Admitted with severe symptomatic hyponatremia/SIADH, metabolic encephalopathy, aspiration pneumonia, COPD exacerbation. Admitted to the ICU. Started on hypertonic saline. Today-in the ICU. Sitting up in a chair. Answering questions. Did tolerate some diet. Hypertonic saline has been discontinued. Fluid restriction. Patient got a cough. Congested. Review of systems: Was done for constitutional, cardiovascular, GI, pulmonary. relevant finding as above Active Medications Acetaminophen (Tylenol Tab) 650 mg PO Q4HR PRN PRN Reason: Fever and/or Mild Pain Albuterol/Ipratropium (Duoneb 0.5 Mg-3 Mg/3 Ml Soln) 3 ml INHALATION RT-Q4H PRN PRN Reason: Shortness Of Breath Or Wheezing Albuterol/Ipratropium (Duoneb 0.5 Mg-3 Mg/3 Ml Soln) 3 ml INHALATION RT-QID [facility] Last Admin: 08/19/19 15:09 Dose: 3 ml Documented by: Aspirin (Aspirin) 325 mg PO DAILY [facility] Last Admin: 08/19/19 08:33 Dose: 325 mg Documented by: Atorvastatin Calcium (Lipitor) 40 mg PO HS [facility] Last Admin: 08/18/19 20:46 Dose: 40 mg Documented by: Budesonide (Pulmicort) 1 mg INHALATION RT-BID [facility] Last Admin: 08/19/19 06:32 Dose: 1 mg Documented by: Carvedilol (Coreg) 6.25 mg PO BID-W/MEALS [facility] Last Admin: 08/19/19 08:33 Dose: 6.25 mg Documented by: Erythromycin (Romycin Ophth Oint) 1 applic LEFT EYE Q4HR [facility] Last Admin: 08/19/19 15:55 Dose: 1 applic Documented by: Formoterol Fumarate (Perforomist) 20 mcg INHALATION RT-BID [facility] Last Admin: 08/19/19 06:32 Dose: 20 mcg Documented by: Heparin Sodium (Porcine) (Heparin) 5,000 unit SQ Q8HR [facility] Last Admin: 08/19/19 15:54 Dose: 5,000 unit Documented by: Ampicillin Sodium/Sulbactam (Sodium 1.5 gm/ Sodium Chloride) 50 mls @ 100 mls/hr IVPB Q6H [facility] Last Admin: 08/19/19 13:44 Dose: 100 mls/hr Documented by: Insulin Aspart (Novolog) 0 unit SQ ACHS [facility]; Protocol Last Admin: 08/19/19 12:02 Dose: Not Given Documented by: Methylprednisolone Sodium Succinate (Solu-Medrol) 40 mg IV Q12HR [facility] Last Admin: 08/19/19 08:38 Dose: 40 mg Documented by: Naloxone HCl (Narcan) 0.2 mg IV Q2M PRN PRN Reason: Opioid Reversal Pantoprazole Sodium (Protonix) 40 mg PO AC-BRKFST [facility] Last Admin: 08/19/19 06:14 Dose: Not Given Documented by: Physical examination: VITAL SIGNS: 97.3, 80, 15, 108/56, 97% on 4 L GENERAL: Sitting up in a chair, awake, tired answering questions EYES: Pupils equal. Conjunctiva normal. HEENT: External appearance of nose and ears normal, oral cavity-poor hygiene. Patient's cannot boils on the scalp left upper eyelid, face NECK: JVD not raised; masses not palpable. HEART: First and second heart sounds are normal; no edema. LUNGS: Respiratory rate increased, decreased breath sound, occasional crackles ABDOMEN: Soft, nontender, liver spleen not palpable, no masses palpable. PSYCH: Able to answer questions. NEUROLOGICAL: [Cranial nerves grossly intact; no facial asymmetry, some left- sided weakness INVESTIGATIONS, reviewed in the clinical context: White count 18 hemoglobin 14.3 potassium 5.3 sodium 123 creatinine 0.63 Previous testing White count 22.7 hemoglobin 14.5 platelets 195 sodium 107 chloride 72 creatinine 0.47 serum osmolality 228 albumin 3.9 albumin 3.9 UA positive for protein glucose ketones Urine drug screen positive for cocaine Computed tomography scan of the brain and L-nhbsw-burmtrca-to-severe chronic Nasal sinus disease, suspect polyposis no fracture. Chest x-ray film personally reviewed by me-infiltrate acute versus chronic EKG tracing personally reviewed by me-no sinus rhythm Right foot x-ray-no evidence of fracture Assessment: -Severe symptomatic hypoosmolar hyponatremia with known SIADH, slowly improving -Probable aspiration pneumonia-slow to respond -Acute COPD exacerbation in a smoker-slow to respond -Chronic left hemiparesis from prior stroke -Essential hypertension -Chronic nicotine dependence cigarette smoker -Acute metabolic encephalopathy and delirium from severe electrolyte abnormality and infection-improving -Blunt injury to the right foot likely secondary to fall -Obesity BMI 30 -Patient's has a few boils on the left scalp left eyelid and the face Plan: -Patient is on fluid restriction. Hypertonic saline has been discontinued. Antibiotic he is on IV Unasyn. IV Solu-Medrol for COPD exacerbation. We'll check serum osmolarity and electrolytes
[2019-08-19 16:36] LABS: Glucose,Whole Blood 122 mg/dL (75-99)
[2019-08-19 19:39] LABS: Glucose,Whole Blood 134 mg/dL (75-99)
[2019-08-19] MEDS: ATORVASTATIN 40 MG TAB PO SCH (19:43)
--- NOTE | 2019-08-20 01:24 | P.PN ---
Subjective Progress Note Date: 08/20/19 Patient was seen for a follow-up. Patient is feeling much better. Much more alert and awake. He offers no complaints. Patient is laying in the bed. Objective - Vital Signs Vital signs: Vital Signs Temp 97.8 F 08/20/19 00:00 Pulse 75 08/20/19 00:00 Resp 17 08/20/19 00:00 BP 140/93 08/20/19 00:00 Pulse Ox 94 L 08/20/19 00:15 Intake & Output 08/19/19 08/19/19 08/20/19 06:59 18:59 06:59 Intake Total 1120 50 50 Output Total 2085 1330 505 Balance -965 -1280 -455 Weight 97.7 kg 97.7 kg Intake: IV 40 50 Ampicillin-Sulbactam 1.5 50 gm In Sodium Chloride 0.9 % 50 ml @ 100 mls/hr IVPB Q6H [facility] Rx#:[id number] Sodium Chloride 3%( 40 Hypertonic) 500 ml @ 20 mls/hr IV .Q24H [facility] Rx#: [id number] Intake, IV Titration 50 Amount Ampicillin-Sulbactam 1.5 50 gm In Sodium Chloride 0.9 % 50 ml @ 100 mls/hr IVPB Q6H [facility] Rx#:[id number] Oral 1080 Output: Urine 2084 1330 505 Other: Voiding Method Indwelling Catheter Indwelling Catheter Indwelling Catheter - Exam Patient is very alert and awake, in no distress. Patient is fully oriented, knows it is August 2019 and that he is in [facility] in [facility]. Speech and language functions are normal. Face is symmetric. Tongue protrudes the midline. Muscle strength is completely normal in the arms and legs distally and proximally. - Labs CBC & Chem 7: 08/19/19 04:42 08/19/19 17:38 Labs: Abnormal Lab Results - Last 24 Hours (Table) 08/19/19 08/19/19 08/19/19 Range/Units 00:46 04:42 04:42 WBC 18.0 H (3.8-10.6) k/uL Plt Count 139 L (150-450) k/uL Neutrophils # (Manual) 10.44 H (1.3-7.7) k/uL Lymphocytes # (Manual) 6.66 H (1.0-4.8) k/uL Sodium 121 L 122 L (137-145) mmol/L Potassium 5.3 H (3.5-5.1) mmol/L Chloride 88 L (98-107) mmol/L Creatinine 0.63 L (0.66-1.25) mg/dL POC Glucose (mg/dL) (75-99) mg/dL 08/19/19 08/19/19 08/19/19 Range/Units 09:25 11:57 16:35 WBC (3.8-10.6) k/uL Plt Count (150-450) k/uL Neutrophils # (Manual) (1.3-7.7) k/uL Lymphocytes # (Manual) (1.0-4.8) k/uL Sodium 123 L (137-145) mmol/L Potassium (3.5-5.1) mmol/L Chloride (98-107) mmol/L Creatinine (0.66-1.25) mg/dL POC Glucose (mg/dL) 126 H 122 H (75-99) mg/dL 08/19/19 08/19/19 Range/Units 17:38 19:38 WBC (3.8-10.6) k/uL Plt Count (150-450) k/uL Neutrophils # (Manual) (1.3-7.7) k/uL Lymphocytes # (Manual) (1.0-4.8) k/uL Sodium 125 L (137-145) mmol/L Potassium (3.5-5.1) mmol/L Chloride (98-107) mmol/L Creatinine (0.66-1.25) mg/dL POC Glucose (mg/dL) 134 H (75-99) mg/dL Assessment and Plan Assessment: * Altered mental status, likely related to toxic metabolic encephalopathy. Encephalopathy is now completely resolved. * Hyponatremia improved. Most recent sodium is 125. * Generalized weakness, likely due to severe hyponatremia. Muscle strength is now completely normal. * Advanced COPD. * Lymphadenopathy, leukocytosis, hematology on board * Cocaine in urine Plan: * Patient's weakness has resolved. Muscle strength is completely normal. * CPK is mildly elevated 455, aldolase pending, ESR 8, B12 is low 201. We will start B12 replacement. * Neurology will sign off. Please call neurology if any other concerns.
[2019-08-20] MEDS: AMPICILLIN-SULBACTAM 1.5 GM in SODIUM CHLORIDE 0.9% 50 ML IVPB SCH (01:57)
[2019-08-20] MEDS: ERYTHROMYCIN 5 MG/GM OPHTH OINT 3.5 GM TUBE LEFT EYE SCH ×5 (04:57→20:47)
[2019-08-20 05:05] LABS: HCT 41.5 % (39.0-53.0); HGB 13.8 gm/dL (13.0-17.5); MCH 31.1 pg (25.0-35.0); MCHC 33.2 g/dL (31.0-37.0); MCV 93.5 fL (80.0-100.0); Mean Platelet Volume 7.1; Platelet Count 236 k/uL (150-450); RBC 4.44 m/uL (4.30-5.90); RDW 13.5 % (11.5-15.5); WBC 22.8 k/uL (3.8-10.6)
[2019-08-20 05:23] LABS: African American GFR (CKD) >90 (>60 ml/min/1.73 sqM); Anion Gap 7 mmol/L; Blood Urea Nitrogen 12 mg/dL (9-20); Calcium 8.4 mg/dL (8.4-10.2); Carbon Dioxide 33 mmol/L (22-30); Chloride 86 mmol/L (98-107); Glucose 125 mg/dL (74-99); Non-African American GFR(CKD) >90 (>60 ml/min/1.73 sqM); Potassium 5.2 mmol/L (3.5-5.1); Sodium 126 mmol/L (137-145)
[2019-08-20 05:44] LABS: Lymphocytes # (M) 9.12 k/uL (1.0-4.8); Monocytes # (M) 0.91 k/uL (0-1.0); Neutrophils # (M) 12.77 k/uL (1.3-7.7); Neutrophils % (M) 56 %; Nucleated Red Blood Cells 0 /100 WBC (0-0); Total Cells Counted 100
--- NOTE | 2019-08-20 06:01 | XR ---
EXAMINATION TYPE: XR chest 1V portable DATE OF EXAM: 08/20/2019 HISTORY: COPD on oxygen. REFERENCE: Previous study dated 08/19/2019. FINDINGS: The study is moderately rotated. The heart is enlarged. There is improved aeration at the lung bases. There continues to be blunting o f the left CP angle and I could not exclude a small left effusion. IMPRESSION: 1. CARDIOMEGALY. 2. CONTINUING LEFT BASILAR AIRSPACE DISEASE AND A SMALL LEFT EFFUSION.
[2019-08-20] MEDS: INSULIN ASPART (NovoLOG) 100 UNIT/ML VIAL SQ SCH ×4 (06:48→20:47)
[2019-08-20 06:49] LABS: Glucose,Whole Blood 106 mg/dL (75-99)
[2019-08-20] MEDS: CARVEDILOL 6.25 MG TAB PO SCH ×2 (06:50→17:02)
[2019-08-20] MEDS: PANTOPRAZOLE 40 MG TABLET PO SCH (06:50)
[2019-08-20] MEDS: FORMOTEROL FUMARATE 20 MCG/2 ML NEBU INHALATION SCH ×2 (08:03→21:06)
[2019-08-20] MEDS: IPRATROPIUM-ALBUTEROL 3 ML NEB INHALATION SCH ×4 (08:03→21:07)
[2019-08-20] MEDS: BUDESONIDE 1 MG/2 ML NEBU INHALATION SCH ×2 (08:03→21:06)
--- NOTE | 2019-08-20 08:54 | P.PN ---
Subjective Progress Note Date: 08/20/19 Principal diagnosis: This is a 64-year-old old male followed up for chronic hyponatremia secondary to SIADH from medication. 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 Objective - Vital Signs Vital signs: Vital Signs Temp 97.7 F 08/20/19 04:00 Pulse 80 08/20/19 08:27 Resp 12 08/20/19 07:00 BP 147/90 08/20/19 07:00 Pulse Ox 97 08/20/19 07:00 Intake & Output 08/19/19 08/20/19 08/20/19 18:59 06:59 18:59 Intake Total 50 100 Output Total 1330 1255 80 Balance -1280 -1155 -80 Weight 97.7 kg 101.5 kg Intake: IV 100 Ampicillin-Sulbactam 1.5 100 gm In Sodium Chloride 0.9 % 50 ml @ 100 mls/hr IVPB Q6H [facility] Rx#:[id number] Intake, IV Titration 50 Amount Ampicillin-Sulbactam 1.5 50 gm In Sodium Chloride 0.9 % 50 ml @ 100 mls/hr IVPB Q6H [facility] Rx#:[id number] Output: Urine 1330 1255 80 Other: Voiding Method Indwelling Catheter Indwelling Catheter On examination is awake alert seems to be oriented 3. Moves all his limbs HEENT exam no JVP neck is supple no facial asymmetry Lungs are clear to auscultation good air entry bilaterally Heart sounds are unremarkable no murmur rub gallop Abdomen soft nontender no masses felt Extremity exam was no edema Neurologically awake alert oriented. - Labs CBC & Chem 7: 08/20/19 04:52 08/20/19 04:52 Labs: Abnormal Lab Results - Last 24 Hours (Table) 08/19/19 08/19/19 08/19/19 Range/Units 09:25 11:57 16:35 WBC (3.8-10.6) k/uL Neutrophils # (Manual) (1.3-7.7) k/uL Lymphocytes # (Manual) (1.0-4.8) k/uL Sodium 123 L (137-145) mmol/L Potassium (3.5-5.1) mmol/L Chloride (98-107) mmol/L Carbon Dioxide (22-30) mmol/L Creatinine (0.66-1.25) mg/dL Glucose (74-99) mg/dL POC Glucose (mg/dL) 126 H 122 H (75-99) mg/dL 08/19/19 08/19/19 08/20/19 Range/Units 17:38 19:38 00:51 WBC (3.8-10.6) k/uL Neutrophils # (Manual) (1.3-7.7) k/uL Lymphocytes # (Manual) (1.0-4.8) k/uL Sodium 125 L 123 L (137-145) mmol/L Potassium (3.5-5.1) mmol/L Chloride (98-107) mmol/L Carbon Dioxide (22-30) mmol/L Creatinine (0.66-1.25) mg/dL Glucose (74-99) mg/dL POC Glucose (mg/dL) 134 H (75-99) mg/dL 08/20/19 08/20/19 08/20/19 Range/Units 04:52 04:52 06:48 WBC 22.8 H (3.8-10.6) k/uL Neutrophils # (Manual) 12.77 H (1.3-7.7) k/uL Lymphocytes # (Manual) 9.12 H (1.0-4.8) k/uL Sodium 126 L (137-145) mmol/L Potassium 5.2 H (3.5-5.1) mmol/L Chloride 86 L (98-107) mmol/L Carbon Dioxide 33 H (22-30) mmol/L Creatinine 0.57 L (0.66-1.25) mg/dL Glucose 125 H (74-99) mg/dL POC Glucose (mg/dL) 106 H (75-99) mg/dL Assessment and Plan Assessment: Impression 1. Hyponatremia secondary to SIADH from medications and patient history of bipolar disorder Sodium is improved to 126 on fluid restriction 2. History of bipolar disorder 3. History of alcohol abuse in the past 4. Currently his cocaine was positive in the urine screen Recommendation 1. Continue to fluid restrict to 1 L. 2. His discharge he needs to have frequent sodium monitoring. 3. Ensure that he is taking adequate protein intake to improve his free water clearance
[2019-08-20] MEDS: predniSONE 20 MG TAB PO SCH (09:18)
[2019-08-20] MEDS: HEPARIN SODIUM,PORCINE 5,000 UNIT/ML 1 ML VIAL SQ SCH ×2 (09:18→17:02)
[2019-08-20] MEDS: CYANOCOBALAMIN 1,000 MCG/ML 1 ML VIAL IM SCH (09:19)
[2019-08-20] MEDS: ASPIRIN 325 MG TAB PO SCH (09:19)
[2019-08-20] MEDS: AMOXIC-POT CLAV 875-125MG 1 EACH TAB PO SCH ×2 (09:19→20:44)
[2019-08-20] MEDS: FLUoxetine HCL 20 MG CAP PO SCH (09:19)
--- NOTE | 2019-08-20 11:11 | P.PN ---
Subjective Progress Note Date: 08/20/19 63-year-old male patient with known history of schizophrenia maintained on a combination of risperidone and fluoxetine/Prozac by the previous hospital physician back in March 2019 for an aspiration pneumonia and severe hyponatremia. 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 He was treated with a hypertonic saline solution and he was treated for ventilator-dependent respiratory failure due to an extensive right lung pneumonia. He is also known to have COPD and hypertension and diabetes mellitus. The patient had a similar presentation where he was having generalized weakness and some degree of shortness of breath. He was asked to come in to the hospital and his roommate activated EMS services. The patient was having generalized weakness. The patient denied having any headaches or blurred vision or double vision and he denies having any numbness or tingling in his extremities. He denies having any nausea or vomiting. No constipation. No diarrhea. He had been falling and had trauma to his right foot and he had also some limited trauma to his head. He is a poor historian as such history is essentially unreliable. The patient had any shows sodium level of 107. He was started on the percent saline at the rate of 20 mL an hour and sodium gradually came up to 114 this morning. Currently is off the hypertonic saline solution. Mentation is improved. He has been bronchospastic congested and wheezy. The white cell count is 21. The osmolality of the urine was elevated at 458, urine sodium is at 63, serum osmolality is 228, LFTs are within normal, urine drug screen is positive for cocaine. The chest x-ray shows no acute abnormalities. The computed tomography scan of the head and the neck shows cervical and supraclavicular lymphadenopathy measuring up to 1.8 cm in size. He has also moderate to severe chronic paranasal sinus disease with underlying polyposis. He has also had some cervical spine disease. He has no intracranial abnormalities. There is chronic small vessel ischemic disease. On 08/19/2019 and seeing the patient for a follow-up. The covid 19 evaluation came back negative. The patient is looking well. No specific complaints. Overnight evaluation came back negative. The patient was felt to have some aspiration yesterday and the patient was placed nothing by mouth awaiting a swallow evaluation. He was having some issues with COPD exacerbation. I put him on IV Solu-Medrol. I also put him on empiric IV Rocephin. On today's evaluation going to remove the Rocephin and switch her to Unasyn as the patient may have had some aspiration. His left eye/eyelid infections improving. His sodium level is also improved. He was on hypertonic saline and this was discontinued as the patient's sodium level has been uptrending. Sodium level is up to 122. His mental status is adequate. He is not having any focal neurological deficit. The white cell count is 18. Renal function stable. On 08/20/2019, the patient is doing well. No specific complaints. Resting comfortably in bed. Sodium level is improving. No altered mentation. No agitation. The swallow evaluation he was provided diet again. Remains bronchospastic and wheezy and the patient would benefit from a prednisone burst taper which she is ready taken in addition to DuoNeb the last treatment [id number]. He is on heparin subcu for DVT prophylaxis. His fluid intake has been instructed. The patient will be started back on his Prozac. The sodium level today is at 126 which is improved. With a +22.8. Chest x-ray shows cardiomegaly with some limited left-sided pleural effusion. As for the hyponatremia, the patient was seen by nephrology and with fluid restriction the sodium levels improved up to 126. Objective - Vital Signs Vital signs: Vital Signs Temp 98.6 F 08/20/19 08:00 Pulse 87 08/20/19 10:00 Resp 16 08/20/19 10:00 BP 129/73 08/20/19 10:00 Pulse Ox 96 08/20/19 10:00 Intake & Output 08/19/19 08/20/19 08/20/19 18:59 06:59 18:59 Intake Total 50 100 240 Output Total 1330 1255 205 Balance -1280 -1155 35 Weight 97.7 kg 101.5 kg Intake: IV 100 Ampicillin-Sulbactam 1.5 100 gm In Sodium Chloride 0.9 % 50 ml @ 100 mls/hr IVPB Q6H [facility] Rx#:[id number] Intake, IV Titration 50 Amount Ampicillin-Sulbactam 1.5 50 gm In Sodium Chloride 0.9 % 50 ml @ 100 mls/hr IVPB Q6H [facility] Rx#:[id number] Oral 240 Output: Urine 1330 1255 205 Other: Voiding Method Indwelling Catheter Indwelling Catheter Indwelling Catheter - Exam The patient appeared well nourished and normally developed. Vital signs as documented. Head exam is unremarkable. No scleral icterus or corneal arcus noted. Neck is without jugular venous distension, thyromegaly, or carotid bruits. Carotid upstrokes are brisk bilaterally. Lungs are diminished bilaterally along with diffuse expiratory wheezing throughout the lung mccartney. Overall air entry is improved and the patient is less bronchospastic and wheezy compared to yesterday. Cardiac exam reveals the PMI to be normally sized and situated. Rhythm is regular. First and second heart sounds normal. No murmurs, rubs or gallops. Abdominal exam reveals normal bowel sounds, no masses, no or ganomegaly and no aortic enlargement. Extremities are nonedematous and both femoral and pedal pulses are normal.Examination of the skin revealed no evidence of significant rashes, suspicious appearing nevi or other concerning lesions. Neurologically awake and alert and is no focal neurological deficit. - Labs CBC & Chem 7: 08/20/19 04:52 08/20/19 04:52 Labs: Abnormal Lab Results - Last 24 Hours (Table) 08/19/19 08/19/19 08/19/19 Range/Units 11:57 16:35 17:38 WBC (3.8-10.6) k/uL Neutrophils # (Manual) (1.3-7.7) k/uL Lymphocytes # (Manual) (1.0-4.8) k/uL Sodium 125 L (137-145) mmol/L Potassium (3.5-5.1) mmol/L Chloride (98-107) mmol/L Carbon Dioxide (22-30) mmol/L Creatinine (0.66-1.25) mg/dL Glucose (74-99) mg/dL POC Glucose (mg/dL) 126 H 122 H (75-99) mg/dL 08/19/19 08/20/19 08/20/19 Range/Units 19:38 00:51 04:52 WBC 22.8 H (3.8-10.6) k/uL Neutrophils # (Manual) 12.77 H (1.3-7.7) k/uL Lymphocytes # (Manual) 9.12 H (1.0-4.8) k/uL Sodium 123 L (137-145) mmol/L Potassium (3.5-5.1) mmol/L Chloride (98-107) mmol/L Carbon Dioxide (22-30) mmol/L Creatinine (0.66-1.25) mg/dL Glucose (74-99) mg/dL POC Glucose (mg/dL) 134 H (75-99) mg/dL 08/20/19 08/20/19 Range/Units 04:52 06:48 WBC (3.8-10.6) k/uL Neutrophils # (Manual) (1.3-7.7) k/uL Lymphocytes # (Manual) (1.0-4.8) k/uL Sodium 126 L (137-145) mmol/L Potassium 5.2 H (3.5-5.1) mmol/L Chloride 86 L (98-107) mmol/L Carbon Dioxide 33 H (22-30) mmol/L Creatinine 0.57 L (0.66-1.25) mg/dL Glucose 125 H (74-99) mg/dL POC Glucose (mg/dL) 106 H (75-99) mg/dL Microbiology - Last 24 Hours (Table) 08/18/19 09:15 Gram Stain - Final Eye - Left Eye Culture - Final Assessment and Plan Plan: 1 severe hyponatremia secondary to SIADH. This could be related to medication as the patient on a combination of Risperdal and Prozac and the patient is indicating excessive fluid which potentially can drop the sodium level. The patient was treated with hypertonic saline solution 3%, sodium level is up to 126. No altered mentation. Fluid restriction is still being implemented for less than 1 L of intake over 24-hour period. 2 generalized weakness and frequent falls secondary to above, improved 3 advanced COPD 4 history of mediastinal lymphadenopathy that needs to be followed up on outpatient basis, CAT scan of the abdomen was also done by hematology oncology and there are some nonspecific nonenlarged abdominal lymph nodes noted. This is to be worked up on outpatient basis. 5 diabetes mellitus type 2 6 schizophrenia 7 history of pansinusitis/mastoiditis 8 history of lacunar infarct with some residual right facial weakness 9 chronic hypoxic respiratory failure/chronic hypercapnic respiratory failure 10 chronic dyspnea secondary to above 11 previous hospitalization for a similar presentation of an acute hyponatremia and SIADH 12 previous hospitalization for aspiration pneumonia and ventilator dependent respiratory failure. 13 hyperlipidemia 14 left eye erythema/eyelid infection/conjunctivitis, improving 15 smoker 16 cocaine in his urine drug screen 17 suspect aspiration and the patient passed a swallow evaluation the patient will follow without any major difficulties. . Plan Fluid restriction Monitor sodium level, levels are improving will switch this patient to oral Augmentin Prednisone burst taper along with bronchodilators regarding COPD Mediastinal lymphadenopathy needs to be followed up on outpatient basis CAT scan of the brain and neck was noted, CAT scan of the abdomen and pelvis was also noted. Will restart Prozac and keep Risperdal on hold Advance diet as tolerated Transferred to a medical surgical floor We'll continue to follow.
[2019-08-20 11:29] LABS: Glucose,Whole Blood 106 mg/dL (75-99)
[2019-08-20 17:11] LABS: Glucose,Whole Blood 132 mg/dL (75-99)
--- NOTE | 2019-08-20 18:18 | P.PN ---
Progress Note - Text Progress Note Date: 08/20/19 Chief Complaint: Weakness, History of presenting complaint: This is 64-year-old patient of Dr. Shah. Patient was here in March of this year and was then admitted with COPD exacerbation with acute hypoxic and hypercapnic respiratory failure, also an acute CVA with a lacunar infarct, severe hyponatremia diabetes type 2 schizophrenia. Patient is nonsmoker. Patient was now sent in by his roommate for some shortness of breath weak and tired. Patient is some chronic left-sided weakness. Patient rather tired not willing to give too much of history. Denies any fever and chills. This feeling tired and rundown. No headaches. Please been falling as a trauma to the right foot. Slight bruising. Patient's found to have a sodium of 107 hence was admitted to the ICU. He was started on hypertonic saline. Patient is to be short of breath and wheezing also got a cough. Apparently the patient has been taking cocaine. Admitted with severe symptomatic hyponatremia/SIADH, metabolic encephalopathy, aspiration pneumonia, COPD exacerbation. Admitted to the ICU. Started on hypertonic saline. Today-in the ICU. Sitting out of bed. Awake. Eating well. Some shortness of breath. Review of systems: Was done for constitutional, cardiovascular, GI, pulmonary. relevant finding as above Active Medications Acetaminophen (Tylenol Tab) 650 mg PO Q4HR PRN PRN Reason: Fever and/or Mild Pain Albuterol/Ipratropium (Duoneb 0.5 Mg-3 Mg/3 Ml Soln) 3 ml INHALATION RT-Q4H PRN PRN Reason: Shortness Of Breath Or Wheezing Albuterol/Ipratropium (Duoneb 0.5 Mg-3 Mg/3 Ml Soln) 3 ml INHALATION RT-QID [facility] Last Admin: 08/20/19 15:31 Dose: 3 ml Documented by: Amoxicillin/Clavulanate Potassium (Augmentin [id number]) 1 each PO Q12HR [facility] Last Admin: 08/20/19 09:19 Dose: 1 each Documented by: Aspirin (Aspirin) 325 mg PO DAILY [facility] Last Admin: 08/20/19 09:19 Dose: 325 mg Documented by: Atorvastatin Calcium (Lipitor) 40 mg PO HS [facility] Last Admin: 08/19/19 19:43 Dose: 40 mg Documented by: Budesonide (Pulmicort) 1 mg INHALATION RT-BID [facility] Last Admin: 08/20/19 08:03 Dose: 1 mg Documented by: Carvedilol (Coreg) 6.25 mg PO BID-W/MEALS [facility] Last Admin: 08/20/19 17:02 Dose: 6.25 mg Documented by: Cyanocobalamin (Vitamin B-12) 1,000 mcg IM DAILY [facility] Last Admin: 08/20/19 09:19 Dose: 1,000 mcg Documented by: Erythromycin (Romycin Ophth Oint) 1 applic LEFT EYE Q4HR [facility] Last Admin: 08/20/19 17:02 Dose: 1 applic Documented by: Fluoxetine HCl (Prozac) 20 mg PO DAILY [facility] Last Admin: 08/20/19 09:19 Dose: 20 mg Documented by: Formoterol Fumarate (Perforomist) 20 mcg INHALATION RT-BID [facility] Last Admin: 08/20/19 08:03 Dose: 20 mcg Documented by: Heparin Sodium (Porcine) (Heparin) 5,000 unit SQ Q8HR [facility] Last Admin: 08/20/19 17:02 Dose: 5,000 unit Documented by: Insulin Aspart (Novolog) 0 unit SQ [facility]; Protocol Last Admin: 08/20/19 17:12 Dose: 1 unit Documented by: Naloxone HCl (Narcan) 0.2 mg IV Q2M PRN PRN Reason: Opioid Reversal Pantoprazole Sodium (Protonix) 40 mg PO AC-BRKFST [facility] Last Admin: 08/20/19 06:50 Dose: 40 mg Documented by: Prednisone () 40 mg PO DAILY [facility] Last Admin: 08/20/19 09:18 Dose: 40 mg Documented by: Physical examination: VITAL SIGNS: 98.5, 80, 17, 123/79, 98% on 4 L GENERAL: Sitting up in bed, awake tired EYES: Pupils equal. Conjunctiva normal. HEENT: External appearance of nose and ears normal, oral cavity-poor hygiene. Patient's cannot boils on the scalp left upper eyelid, face NECK: JVD not raised; masses not palpable. HEART: First and second heart sounds are normal; no edema. LUNGS: Respiratory rate increased, decreased breath sound, some wheezing ABDOMEN: Soft, nontender, liver spleen not palpable, no masses palpable. PSYCH: Answering questions. NEUROLOGICAL: [Cranial nerves grossly intact; no facial asymmetry, some left-s ided weakness INVESTIGATIONS, reviewed in the clinical context: White count 22.8 hemoglobin 13.8 potassium 5.2 4126 creatinine 0.57 Previous testing White count 22.7 hemoglobin 14.5 platelets 195 sodium 107 chloride 72 creatinine 0.47 serum osmolality 228 albumin 3.9 albumin 3.9 UA positive for protein glucose ketones Urine drug screen positive for cocaine Computed tomography scan of the brain and O-znpur-gvacreeb-to-severe chronic Nasal sinus disease, suspect polyposis no fracture. Chest x-ray film personally reviewed by me-infiltrate acute versus chronic EKG tracing personally reviewed by me-no sinus rhythm Right foot x-ray-no evidence of fracture Assessment: -Severe symptomatic hypoosmolar hyponatremia with known SIADH, slowly improving -Probable aspiration improving -Acute COPD exacerbation in a smoker-slow to respond -Acute hypoxic respiratory failure from above -Chronic left hemiparesis from prior stroke -Essential hypertension -Chronic nicotine dependence cigarette smoker -Acute metabolic encephalopathy and delirium from severe electrolyte abnormality and infection-improving -Blunt injury to the right foot likely secondary to fall -Obesity BMI 30 -Patient's has a few boils on the left scalp left eyelid and the face Plan: -Continue with fluid restriction. On bronchodilators, started on oral prednisone. On Augmentin. If okay with electrical repairer. Able to move out of the ICU.
[2019-08-20 20:38] LABS: Glucose,Whole Blood 103 mg/dL (75-99)
[2019-08-20] MEDS: ATORVASTATIN 40 MG TAB PO SCH (20:44)
[2019-08-21] MEDS: HEPARIN SODIUM,PORCINE 5,000 UNIT/ML 1 ML VIAL SQ SCH ×3 (00:12→17:10)
[2019-08-21] MEDS: ERYTHROMYCIN 5 MG/GM OPHTH OINT 3.5 GM TUBE LEFT EYE SCH ×6 (00:12→20:42)
[2019-08-21 05:46] LABS: African American GFR (CKD) >90 (>60 ml/min/1.73 sqM); Anion Gap 6 mmol/L; Blood Urea Nitrogen 16 mg/dL (9-20); Calcium 8.5 mg/dL (8.4-10.2); Carbon Dioxide 35 mmol/L (22-30); Chloride 86 mmol/L (98-107); Glucose 83 mg/dL (74-99); Non-African American GFR(CKD) >90 (>60 ml/min/1.73 sqM); Sodium 127 mmol/L (137-145)
[2019-08-21 05:52] LABS: Potassium 4.8 mmol/L (3.5-5.1)
[2019-08-21] MEDS: PANTOPRAZOLE 40 MG TABLET PO SCH (06:38)
[2019-08-21] MEDS: CARVEDILOL 6.25 MG TAB PO SCH ×2 (06:38→17:09)
[2019-08-21 06:43] LABS: Glucose,Whole Blood 87 mg/dL (75-99)
[2019-08-21] MEDS: INSULIN ASPART (NovoLOG) 100 UNIT/ML VIAL SQ SCH ×4 (06:44→20:38)
[2019-08-21] MEDS: IPRATROPIUM-ALBUTEROL 3 ML NEB INHALATION SCH ×4 (07:33→19:20)
[2019-08-21] MEDS: FORMOTEROL FUMARATE 20 MCG/2 ML NEBU INHALATION SCH ×2 (07:34→19:20)
[2019-08-21] MEDS: BUDESONIDE 1 MG/2 ML NEBU INHALATION SCH ×2 (07:34→19:20)
[2019-08-21] MEDS: predniSONE 20 MG TAB PO SCH (08:55)
[2019-08-21] MEDS: AMOXIC-POT CLAV 875-125MG 1 EACH TAB PO SCH ×2 (08:56→20:41)
[2019-08-21] MEDS: ASPIRIN 325 MG TAB PO SCH (08:56)
[2019-08-21] MEDS: CYANOCOBALAMIN 1,000 MCG/ML 1 ML VIAL IM SCH (08:56)
[2019-08-21] MEDS: FLUoxetine HCL 20 MG CAP PO SCH (08:56)
--- NOTE | 2019-08-21 11:28 | P.PN ---
Subjective Progress Note Date: 08/21/19 63-year-old male patient with known history of schizophrenia maintained on a combination of risperidone and fluoxetine/Prozac by the previous hospital physician back in March 2019 for an aspiration pneumonia and severe hyponatremia. 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 He was treated with a hypertonic saline solution and he was treated for ventilator-dependent respiratory failure due to an extensive right lung pneumonia. He is also known to have COPD and hypertension and diabetes mellitus. The patient had a similar presentation where he was having generalized weakness and some degree of shortness of breath. He was asked to come in to the hospital and his roommate activated EMS services. The patient was having generalized weakness. The patient denied having any headaches or blurred vision or double vision and he denies having any numbness or tingling in his extremities. He denies having any nausea or vomiting. No constipation. No diarrhea. He had been falling and had trauma to his right foot and he had also some limited trauma to his head. He is a poor historian as such history is essentially unreliable. The patient had any shows sodium level of 107. He was started on the percent saline at the rate of 20 mL an hour and sodium gradually came up to 114 this morning. Currently is off the hypertonic saline solution. Mentation is improved. He has been bronchospastic congested and wheezy. The white cell count is 21. The osmolality of the urine was elevated at 458, urine sodium is at 63, serum osmolality is 228, LFTs are within normal, urine drug screen is positive for cocaine. The chest x-ray shows no acute abnormalities. The computed tomography scan of the head and the neck shows cervical and supraclavicular lymphadenopathy measuring up to 1.8 cm in size. He has also moderate to severe chronic paranasal sinus disease with underlying polyposis. He has also had some cervical spine disease. He has no intracranial abnormalities. There is chronic small vessel ischemic disease. On 08/19/2019 and seeing the patient for a follow-up. The covid 19 evaluation came back negative. The patient is looking well. No specific complaints. Overnight evaluation came back negative. The patient was felt to have some aspiration yesterday and the patient was placed nothing by mouth awaiting a swallow evaluation. He was having some issues with COPD exacerbation. I put him on IV Solu-Medrol. I also put him on empiric IV Rocephin. On today's evaluation going to remove the Rocephin and switch her to Unasyn as the patient may have had some aspiration. His left eye/eyelid infections improving. His sodium level is also improved. He was on hypertonic saline and this was discontinued as the patient's sodium level has been uptrending. Sodium level is up to 122. His mental status is adequate. He is not having any focal neurological deficit. The white cell count is 18. Renal function stable. On 08/20/2019, the patient is doing well. No specific complaints. Resting comfortably in bed. Sodium level is improving. No altered mentation. No agitation. The swallow evaluation he was provided diet again. Remains bronchospastic and wheezy and the patient would benefit from a prednisone burst taper which she is ready taken in addition to DuoNeb the last treatment [id number]. He is on heparin subcu for DVT prophylaxis. His fluid intake has been instructed. The patient will be started back on his Prozac. The sodium level today is at 126 which is improved. With a +22.8. Chest x-ray shows cardiomegaly with some limited left-sided pleural effusion. As for the hyponatremia, the patient was seen by nephrology and with fluid restriction the sodium levels improved up to 126. On 08/21/2019, patient has no specific complaints. Less progress bronchospastic and wheezy. Sodium level is up to 127. No altered mentation. No nausea vomiting or diarrhea or abdominal pain. The patient is currently on oral Augmentin. The eyelid infection of the left eye along with the conjunctivitis is improved. He is completing a prednisone burst taper. He is on DuoNeb the last treatment [id number]. Prozac was restarted. No significant agitation. Tolerating his diet. He has been downgraded to medical surgical floor and he'll be transferred hopefully today. Objective - Vital Signs Vital signs: Vital Signs Temp 98.2 F 08/21/19 08:00 Pulse 72 08/21/19 08:00 Resp 18 08/21/19 08:00 BP 140/94 08/21/19 08:00 Pulse Ox 99 08/21/19 08:00 Intake & Output 08/20/19 08/21/19 08/21/19 18:59 06:59 18:59 Intake Total 1275 225 548 Output Total 990 550 250 Balance 285 -325 298 Weight 99.8 kg Intake: Oral 1275 225 548 Output: Urine 990 550 250 Other: Voiding Method Indwelling Catheter Indwelling Catheter Urinal - Exam The patient appeared well nourished and normally developed. Vital signs as documented. Head exam is unremarkable. No scleral icterus or corneal arcus noted. Neck is without jugular venous distension, thyromegaly, or carotid bruits. Carotid upstrokes are brisk bilaterally. Lungs are diminished bilaterally along with diffuse expiratory wheezing throughout the lung mccartney. Overall air entry is improved and the patient is less bronchospastic and wheezy compared to yesterday. Cardiac exam reveals the PMI to be normally sized and situated. Rhythm is regular. First and second heart sounds normal. No murmurs, rubs or gallops. Abdominal exam reveals normal bowel sounds, no masses, no organomegaly and no aortic enlargement. Extremities are nonedematous and both femoral and pedal pulses are normal.Examination of the skin revealed no evidence of significant rashes, suspicious appearing nevi or other concerning lesions. Neurologically awake and alert and is no focal neurological deficit. - Labs CBC & Chem 7: 08/20/19 04:52 08/21/19 04:43 Labs: Abnormal Lab Results - Last 24 Hours (Table) 08/20/19 08/20/19 08/20/19 Range/Units 11:27 17:09 20:37 Sodium (137-145) mmol/L Chloride (98-107) mmol/L Carbon Dioxide (22-30) mmol/L POC Glucose (mg/dL) 106 H 132 H 103 H (75-99) mg/dL 08/21/19 Range/Units 04:43 Sodium 127 L (137-145) mmol/L Chloride 86 L (98-107) mmol/L Carbon Dioxide 35 H (22-30) mmol/L POC Glucose (mg/dL) (75-99) mg/dL Microbiology - Last 24 Hours (Table) 08/18/19 09:15 Gram Stain - Final Eye - Left Eye Culture - Final Assessment and Plan Plan: 1 severe hyponatremia secondary to SIADH. This could be related to medication as the patient on a combination of Risperdal and Prozac and the patient is indicating excessive fluid which potentially can drop the sodium level. The patient was treated with hypertonic saline solution 3%, sodium level is up to 127. No altered mentation. Fluid restriction is still being implemented for less than 1 L of intake over 24-hour period. The patient does not have any altered mentation or neurologic manifestations related to hyponatremia. In fact the symptoms have improved. 2 generalized weakness and frequent falls secondary to above, improved 3 advanced COPD 4 history of mediastinal lymphadenopathy that needs to be followed up on outpatient basis, CAT scan of the abdomen was also done by hematology oncology and there are some nonspecific nonenlarged abdominal lymph nodes noted. This is to be worked up on outpatient basis. 5 diabetes mellitus type 2 6 schizophrenia 7 history of pansinusitis/mastoiditis 8 history of lacunar infarct with some residual right facial weakness 9 chronic hypoxic respiratory failure/chronic hypercapnic respiratory failure 10 chronic dyspnea secondary to above 11 previous hospitalization for a similar presentation of an acute hyponatremia and SIADH 12 previous hospitalization for aspiration pneumonia and ventilator dependent respiratory failure. 13 hyperlipidemia 14 left eye erythema/eyelid infection/conjunctivitis, improving 15 smoker 16 cocaine in his urine drug screen 17 suspect aspiration and the patient passed a swallow evaluation the patient will follow without any major difficulties. The patient is currently on oral Augmentin that covers also for aspiration pneumonia Plan Fluid restriction The sodium level continues to slowly improve it's up to 127 Prednisone burst taper along with bronchodilators regarding COPD Mediastinal lymphadenopathy needs to be followed up on outpatient basis CAT scan of the brain and neck was noted, CAT scan of the abdomen and pelvis was also noted. Prozac was restarted Keep the respiratory on hold Advance diet as tolerated Transferred to a medical surgical floor We'll continue to follow.
[2019-08-21 12:11] LABS: Glucose,Whole Blood 113 mg/dL (75-99)
--- NOTE | 2019-08-21 13:39 | P.PN ---
Subjective Progress Note Date: 08/21/19 Principal diagnosis: This is a 64-year-old old male followed up for chronic hyponatremia secondary to SIADH from medication. He is improving currently sodium is 126 and went up to 127 on just fluid restriction Is awake alert and is responding to all questions and following commands Other than this he is known with history of bipolar disorder and schizophrenia, had cocaine in his urine and is known with history of alcohol abuse in the past More recently in the April he had a acute lacunar infarct and has some chronic weakness of the left side presumably He is eating very well and is on fluid restriction. Objective - Vital Signs Vital signs: Vital Signs Temp 98.2 F 08/21/19 08:00 Pulse 72 08/21/19 11:41 Resp 18 08/21/19 08:00 BP 140/94 08/21/19 08:00 Pulse Ox 99 08/21/19 08:00 Intake & Output 08/20/19 08/21/19 08/21/19 18:59 06:59 18:59 Intake Total 1275 225 548 Output Total 990 550 250 Balance 285 -325 298 Weight 99.8 kg Intake: Oral 1275 225 548 Output: Urine 990 550 250 Other: Voiding Method Indwelling Catheter Indwelling Catheter Urinal Examination is awake alert. HEENT exam no JVP neck is supple no facial asymmetry Lungs are clear to auscultation with occasional end expiratory wheezing good air entry bilaterally Heart sounds are unremarkable for any murmur rub gallop Abdomen soft nontender Extremity exam was no edema Neurologically awake alert - Labs CBC & Chem 7: 08/20/19 04:52 08/21/19 04:43 Labs: Abnormal Lab Results - Last 24 Hours (Table) 08/20/19 08/20/19 08/21/19 Range/Units 17:09 20:37 04:43 Sodium 127 L (137-145) mmol/L Chloride 86 L (98-107) mmol/L Carbon Dioxide 35 H (22-30) mmol/L POC Glucose (mg/dL) 132 H 103 H (75-99) mg/dL 08/21/19 Range/Units 12:10 Sodium (137-145) mmol/L Chloride (98-107) mmol/L Carbon Dioxide (22-30) mmol/L POC Glucose (mg/dL) 113 H (75-99) mg/dL Assessment and Plan Assessment: Impression 1. Hyponatremia secondary to SIADH from medications and patient history of bipolar disorder, Sodium is improved to 126 >127 on fluid restriction 2. History of bipolar disorder 3. History of alcohol abuse in the past 4. Currently his cocaine was positive in the urine screen Recommendation 1. Continue to fluid restrict to 1.5 L. 2. His discharge he needs to have frequent sodium monitoring. 3. Ensure that he is taking adequate protein intake to improve his free water clearance
--- NOTE | 2019-08-21 16:13 | P.PN ---
Progress Note - Text Progress Note Date: 08/21/19 Chief Complaint: Weakness, History of presenting complaint: This is 64-year-old patient of Dr. Shah. Patient was here in March of this year and was then admitted with COPD exacerbation with acute hypoxic and hypercapnic respiratory failure, also an acute CVA with a lacunar infarct, severe hyponatremia diabetes type 2 schizophrenia. Patient is nonsmoker. Patient was now sent in by his roommate for some shortness of breath weak and tired. Patient is some chronic left-sided weakness. Patient rather tired not willing to give too much of history. Denies any fever and chills. This feeling tired and rundown. No headaches. Please been falling as a trauma to the right foot. Slight bruising. Patient's found to have a sodium of 107 hence was admitted to the ICU. He was started on hypertonic saline. Patient is to be short of breath and wheezing also got a cough. Apparently the patient has been taking cocaine. Admitted with severe symptomatic hyponatremia/SIADH, metabolic encephalopathy, aspiration pneumonia, COPD exacerbation. Admitted to the ICU. Started on hypertonic saline. Antibiotics, bronchodilators, steroids. Today-in the ICU. Doing much better. On nasal cannula. Did tolerate her diet. Sits up in a chair. Review of systems: Was done for constitutional, cardiovascular, GI, pulmonary. relevant finding as above Active Medications Acetaminophen (Tylenol Tab) 650 mg PO Q4HR PRN PRN Reason: Fever and/or Mild Pain Albuterol/Ipratropium (Duoneb 0.5 Mg-3 Mg/3 Ml Soln) 3 ml INHALATION RT-Q4H PRN PRN Reason: Shortness Of Breath Or Wheezing Albuterol/Ipratropium (Duoneb 0.5 Mg-3 Mg/3 Ml Soln) 3 ml INHALATION RT-QID [facility] Last Admin: 08/21/19 15:34 Dose: 3 ml Documented by: Amoxicillin/Clavulanate Potassium (Augmentin [id number]) 1 each PO Q12HR [facility] Last Admin: 08/21/19 08:56 Dose: 1 each Documented by: Aspirin (Aspirin) 325 mg PO DAILY [facility] Last Admin: 08/21/19 08:56 Dose: 325 mg Documented by: Atorvastatin Calcium (Lipitor) 40 mg PO HS [facility] Last Admin: 08/20/19 20:44 Dose: 40 mg Documented by: Budesonide (Pulmicort) 1 mg INHALATION RT-BID [facility] Last Admin: 08/21/19 07:34 Dose: 1 mg Documented by: Carvedilol (Coreg) 6.25 mg PO BID-W/MEALS [facility] Last Admin: 08/21/19 06:38 Dose: 6.25 mg Documented by: Cyanocobalamin (Vitamin B-12) 1,000 mcg IM DAILY [facility] Last Admin: 08/21/19 08:56 Dose: 1,000 mcg Documented by: Erythromycin (Romycin Ophth Oint) 1 applic LEFT EYE Q4HR [facility] Last Admin: 08/21/19 12:10 Dose: 1 applic Documented by: Fluoxetine HCl (Prozac) 20 mg PO DAILY [facility] Last Admin: 08/21/19 08:56 Dose: 20 mg Documented by: Formoterol Fumarate (Perforomist) 20 mcg INHALATION RT-BID [facility] Last Admin: 08/21/19 07:34 Dose: 20 mcg Documented by: Heparin Sodium (Porcine) (Heparin) 5,000 unit SQ Q8HR [facility] Last Admin: 08/21/19 08:56 Dose: 5,000 unit Documented by: Insulin Aspart (Novolog) 0 unit SQ ACHS [facility]; Protocol Last Admin: 08/21/19 12:11 Dose: Not Given Documented by: Naloxone HCl (Narcan) 0.2 mg IV Q2M PRN PRN Reason: Opioid Reversal Pantoprazole Sodium (Protonix) 40 mg PO AC-BRKFST [facility] Last Admin: 08/21/19 06:38 Dose: 40 mg Documented by: Prednisone () 40 mg PO DAILY [facility] Last Admin: 08/21/19 08:55 Dose: 40 mg Documented by: Physical examination: VITAL SIGNS: 98.2, 72, 18, 140/94, 99% on 4 L GENERAL: Sitting up in bed, comfortable EYES: Pupils equal. Conjunctiva normal. HEENT: External appearance of nose and ears normal, oral cavity-poor hygiene. Patient's cannot boils on the scalp left upper eyelid, face NECK: JVD not raised; masses not palpable. HEART: First and second heart sounds are normal; no edema. LUNGS: Respiratory rate increased, decreased breath sound, ABDOMEN: Soft, nontender, liver spleen not palpable, no masses palpable. PSYCH: Answering questions. NEUROLOGICAL: [Cranial nerves grossly intact; no facial asymmetry, some left- sided weakness INVESTIGATIONS, reviewed in the clinical context: Sodium 127 potassium 4.8 creatinine 0.70 Previous testing White count 22.7 hemoglobin 14.5 platelets 195 sodium 107 chloride 72 creatinine 0.47 serum osmolality 228 albumin 3.9 albumin 3.9 UA positive for protein glucose ketones Urine drug screen positive for cocaine Computed tomography scan of the brain and Q-ttawu-giljgmtz-to-severe chronic Nasal sinus disease, suspect polyposis no fracture. Chest x-ray film personally reviewed by me-infiltrate acute versus chronic EKG tracing personally reviewed by me-no sinus rhythm Right foot x-ray-no evidence of fracture Assessment: -Severe symptomatic hypoosmolar hyponatremia with known SIADH, slowly improving -Probable aspiration improving -Acute COPD exacerbation in a smoker-slow to respond -Acute hypoxic respiratory failure from above -Chronic left hemiparesis from prior stroke -Essential hypertension -Chronic nicotine dependence cigarette smoker -Acute metabolic encephalopathy and delirium from severe electrolyte abnormality and infection-improving -Blunt injury to the right foot likely secondary to fall -Obesity BMI 30 -Patient's has a few boils on the left scalp left eyelid and the face Plan: -Continue with fluid restriction. Continue current medications. PTOT of the case. Hopefully can be discharged tomorrow. Awaiting a bed to be out of the ICU.
[2019-08-21 17:10] LABS: Glucose,Whole Blood 108 mg/dL (75-99)
[2019-08-21 20:37] LABS: Glucose,Whole Blood 106 mg/dL (75-99)
[2019-08-21] MEDS: ATORVASTATIN 40 MG TAB PO SCH (20:41)
--- NOTE | 2019-08-21 23:34 | P.PN ---
Subjective Progress Note Date: 08/19/19 The patient is more awake, alert and responsive today. No fevers or chills. No obvious bleeding noted. Denied any difficulty in swallowing, obvious bleeding, or difficulty in breathing Objective - Vital Signs Vital signs: Vital Signs Temp 98.6 F 08/19/19 16:00 Pulse 83 08/19/19 16:00 Resp 14 08/19/19 16:00 BP 126/90 08/19/19 16:00 Pulse Ox 97 08/19/19 16:00 Intake & Output 08/18/19 08/19/19 08/19/19 18:59 06:59 18:59 Intake Total 310 1120 50 Output Total 1809 5 1030 Balance -1499 -965 -980 Weight 97.7 kg 97.7 kg Intake: IV 260 40 Sodium Chloride 3%( 260 40 Hypertonic) 500 ml @ 20 mls/hr IV .Q24H [facility] Rx#: [id number] Intake, IV Titration 50 50 Amount Ampicillin-Sulbactam 1.5 50 gm In Sodium Chloride 0.9 % 50 ml @ 100 mls/hr IVPB Q6H [facility] Rx#:[id number] cefTRIAXone 1 gm In 50 Sodium Chloride 0.9% 50 ml @ 100 mls/hr IVPB Q24HR [facility] Rx#:[id number] Oral 1080 Output: Urine 1809 5 1030 Other: Voiding Method Indwelling Catheter Indwelling Catheter Indwelling Catheter - Constitutional General appearance: Present: no acute distress - EENT EENT Comment(s): Left eyelid swelling and inflammation - Respiratory Respiratory: bilateral: diminished - Cardiovascular Rhythm: regular Heart sounds: normal: S1, S2 - Gastrointestinal General gastrointestinal: Present: normal bowel sounds, soft - Integumentary Integumentary Comment(s): Nodular , erythematous lesions with scabbed surface on forehead and upper face left greater than right - Neurologic Neurologic: Present: CNII-XII intact - Musculoskeletal Musculoskeletal: Present: generalized weakness, strength equal bilaterally - Psychiatric Psychiatric Comment(s): Affect and comprehension still appear to be slow Psychiatric: Present: A&O x's 3 - Labs CBC & Chem 7: 08/20/19 04:52 08/21/19 04:43 Labs: Abnormal Lab Results - Last 24 Hours (Table) 08/18/19 08/18/19 08/18/19 Range/Units 16:44 19:35 21:25 WBC (3.8-10.6) k/uL Plt Count (150-450) k/uL Neutrophils # (Manual) (1.3-7.7) k/uL Lymphocytes # (Manual) (1.0-4.8) k/uL Sodium 119 L* 119 L* (137-145) mmol/L Potassium (3.5-5.1) mmol/L Chloride (98-107) mmol/L Creatinine (0.66-1.25) mg/dL POC Glucose (mg/dL) 131 H (75-99) mg/dL 08/19/19 08/19/19 08/19/19 Range/Units 00:46 04:42 04:42 WBC 18.0 H (3.8-10.6) k/uL Plt Count 139 L (150-450) k/uL Neutrophils # (Manual) 10.44 H (1.3-7.7) k/uL Lymphocytes # (Manual) 6.66 H (1.0-4.8) k/uL Sodium 121 L 122 L (137-145) mmol/L Potassium 5.3 H (3.5-5.1) mmol/L Chloride 88 L (98-107) mmol/L Creatinine 0.63 L (0.66-1.25) mg/dL POC Glucose (mg/dL) (75-99) mg/dL 08/19/19 08/19/19 08/19/19 Range/Units 09:25 11:57 16:35 WBC (3.8-10.6) k/uL Plt Count (150-450) k/uL Neutrophils # (Manual) (1.3-7.7) k/uL Lymphocytes # (Manual) (1.0-4.8) k/uL Sodium 123 L (137-145) mmol/L Potassium (3.5-5.1) mmol/L Chloride (98-107) mmol/L Creatinine (0.66-1.25) mg/dL POC Glucose (mg/dL) 126 H 122 H (75-99) mg/dL Microbiology - Last 24 Hours (Table) 08/18/19 09:15 Gram Stain - Preliminary Eye - Left Eye Culture - Preliminary Assessment and Plan (1) Leukocytosis Narrative/Plan: This is due to lymphocytosis. A lymphoproliferative disorder is suspected. Flow cytometry is pending. There may be a degree of reactive increase as well due to acute illness. Current Visit: Yes Status: Chronic Priority: Medium Code(s): D72.829 - ELEVATED WHITE BLOOD CELL COUNT, UNSPECIFIED SNOMED Code(s): 776976854 (2) Lymphadenopathy Narrative/Plan: CT scan results reviewed and d/w pt. Adenopathy is overall minor and non specific. Thus if flow cytometry confirms a low grade lymphoproliferative disorder, it would be reasonable to follow with observation Current Visit: Yes Status: Acute Priority: High Code(s): R59.1 - GENERALIZED ENLARGED LYMPH NODES SNOMED Code(s): 61451750 Plan: Defer to the admitting service and other consultants for management of his other medical problems
[2019-08-22] MEDS: HEPARIN SODIUM,PORCINE 5,000 UNIT/ML 1 ML VIAL SQ SCH ×4 (00:06→23:32)
[2019-08-22] MEDS: ERYTHROMYCIN 5 MG/GM OPHTH OINT 3.5 GM TUBE LEFT EYE SCH ×7 (00:09→23:32)
[2019-08-22 05:17] LABS: African American GFR (CKD) >90 (>60 ml/min/1.73 sqM); Anion Gap 5 mmol/L; Blood Urea Nitrogen 15 mg/dL (9-20); Calcium 8.3 mg/dL (8.4-10.2); Carbon Dioxide 35 mmol/L (22-30); Chloride 87 mmol/L (98-107); Glucose 82 mg/dL (74-99); Non-African American GFR(CKD) >90 (>60 ml/min/1.73 sqM); Potassium 4.6 mmol/L (3.5-5.1); Sodium 127 mmol/L (137-145)
[2019-08-22] MEDS: PANTOPRAZOLE 40 MG TABLET PO SCH (06:39)
[2019-08-22] MEDS: CARVEDILOL 6.25 MG TAB PO SCH ×2 (06:39→17:59)
[2019-08-22 06:40] LABS: Glucose,Whole Blood 82 mg/dL (75-99)
[2019-08-22] MEDS: INSULIN ASPART (NovoLOG) 100 UNIT/ML VIAL SQ SCH ×4 (06:40→20:53)
[2019-08-22] MEDS: BUDESONIDE 1 MG/2 ML NEBU INHALATION SCH ×2 (07:51→20:05)
[2019-08-22] MEDS: IPRATROPIUM-ALBUTEROL 3 ML NEB INHALATION SCH ×4 (07:51→20:05)
[2019-08-22] MEDS: FORMOTEROL FUMARATE 20 MCG/2 ML NEBU INHALATION SCH ×2 (07:51→20:05)
[2019-08-22 09:03] LABS: HCT 41.4 % (39.0-53.0); MCH 29.6 pg (25.0-35.0); MCHC 31.5 g/dL (31.0-37.0); Mean Platelet Volume 7.9; Platelet Count 227 k/uL (150-450); RBC 4.41 m/uL (4.30-5.90); RDW 12.9 % (11.5-15.5); WBC 21.2 k/uL (3.8-10.6)
[2019-08-22] MEDS ORDERED: FUROSEMIDE 10 MG/ML 2 ML VIAL IV STA (09:25)
--- NOTE | 2019-08-22 09:25 | P.PN ---
Subjective Patient is seen in follow-up for hyponatremia treatment. Sodium level stable. Oral intake is good. He is maintained on fluid restriction. No vomiting or diarrhea. Denies chest pain or shortness of breath. Vital signs are stable. General: The patient appeared well nourished and normally developed. HEENT: Head exam is unremarkable. Neck is without jugular venous distension. LUNGS: Lungs are clear to auscultation and percussion. Breath sounds decreased. HEART: Rate and Rhythm are regular. ABDOMEN: Soft, nontender. EXTREMITITES: No edema. Objective - Vital Signs Vital signs: Vital Signs Temp 97.7 F 08/22/19 07:00 Pulse 78 08/22/19 08:11 Resp 16 08/22/19 07:00 BP 123/84 08/22/19 07:00 Pulse Ox 98 08/22/19 07:00 Intake & Output 08/21/19 08/22/19 08/22/19 18:59 06:59 18:59 Intake Total 1214 370 222 Output Total 1250 1450 375 Balance -36 -1080 -153 Weight 99.7 kg Intake: Oral 1214 370 222 Output: Urine 1250 1450 375 Other: Voiding Method Urinal Urinal # Voids 1 - Labs CBC & Chem 7: 08/22/19 04:31 08/22/19 04:31 Labs: Abnormal Lab Results - Last 24 Hours (Table) 08/21/19 08/21/19 08/21/19 Range/Units 12:10 17:08 20:36 WBC (3.8-10.6) k/uL Sodium (137-145) mmol/L Chloride (98-107) mmol/L Carbon Dioxide (22-30) mmol/L Creatinine (0.66-1.25) mg/dL POC Glucose (mg/dL) 113 H 108 H 106 H (75-99) mg/dL Calcium (8.4-10.2) mg/dL 08/22/19 08/22/19 Range/Units 04:31 04:31 WBC 21.2 H (3.8-10.6) k/uL Sodium 127 L (137-145) mmol/L Chloride 87 L (98-107) mmol/L Carbon Dioxide 35 H (22-30) mmol/L Creatinine 0.64 L (0.66-1.25) mg/dL POC Glucose (mg/dL) (75-99) mg/dL Calcium 8.3 L (8.4-10.2) mg/dL Assessment and Plan Plan: Assessment: 1. Hyponatremia. Appears euvolemic. 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 Sodium level stable. 2. Pneumonia maintain on antibiotics. 3. History of bipolar disorder. Plan: Lasix 20 mg IV once today. Maintain fluid restriction. Encourage oral intake, particularly protein. Potential discharge today. Repeat BMP in 2-3 days postdischarge. Follow up with PCP later this week and in our office in one week.
[2019-08-22] MEDS: ASPIRIN 325 MG TAB PO SCH (09:37)
[2019-08-22] MEDS: CYANOCOBALAMIN 1,000 MCG/ML 1 ML VIAL IM SCH (09:37)
[2019-08-22] MEDS: predniSONE 20 MG TAB PO SCH (09:38)
[2019-08-22] MEDS: FLUoxetine HCL 20 MG CAP PO SCH (09:38)
[2019-08-22] MEDS: AMOXIC-POT CLAV 875-125MG 1 EACH TAB PO SCH ×2 (09:38→20:53)
[2019-08-22 11:58] LABS: Lymphocytes # (M) 13.78 k/uL (1.0-4.8); Monocytes # (M) 1.91 k/uL (0-1.0); Neutrophils # (M) 5.51 k/uL (1.3-7.7); Neutrophils % (M) 26 %; Nucleated Red Blood Cells 0 /100 WBC (0-0); Total Cells Counted 100
[2019-08-22 11:59] LABS: Glucose,Whole Blood 107 mg/dL (75-99)
--- NOTE | 2019-08-22 12:04 | P.PN ---
Subjective Progress Note Date: 08/22/19 Principal diagnosis: altered mental status, hyponatremia In follow-up today patient is much more alert, he is asking questions about what happens since he's been here, he does not remember most of his hospital stay so far. Patient is denying nausea, hunger, problems breathing, he does not remember his last bowel movement, he denies any bleeding or pain. Objective - Vital Signs Vital signs: Vital Signs Temp 97.7 F 08/22/19 07:00 Pulse 78 08/22/19 11:32 Resp 16 08/22/19 07:00 BP 123/84 08/22/19 07:00 Pulse Ox 98 08/22/19 07:00 Intake & Output 08/21/19 08/22/19 08/22/19 18:59 06:59 18:59 Intake Total 1214 370 582 Output Total 1250 1450 375 Balance -36 -1080 207 Weight 99.7 kg Intake: Oral 1214 370 582 Output: Urine 1250 1450 375 Other: Voiding Method Urinal Urinal Urinal # Voids 1 - Constitutional General appearance: Present: cooperative, no acute distress, obese - EENT EENT Comment(s): left eye scleral redness, upper lid swelling Eyes: Present: anicteric sclerae, EOMI ENT: Present: hearing grossly normal - Respiratory Respiratory: bilateral: CTA - Cardiovascular Rhythm: regular Heart sounds: normal: S1, S2 Abnormal Heart Sounds: Absent: systolic murmur, diastolic murmur, rub, S3 Gallop, S4 Gallop, click, other - Peripheral edema leg Peripheral Edema: bilateral: Trace - Gastrointestinal General gastrointestinal: Present: normal bowel sounds, soft - Musculoskeletal Musculoskeletal: Present: generalized weakness, strength equal bilaterally - Psychiatric Psychiatric Comment(s): flat affect. Patient asked me how he got to the hospital, as he did not remember the last several days. Updated him on his clinical course Psychiatric: Present: A&O x's 3 - Labs CBC & Chem 7: 08/22/19 04:31 08/22/19 04:31 Labs: Abnormal Lab Results - Last 24 Hours (Table) 08/18/19 08/21/19 08/21/19 Range/Units 13:13 12:10 17:08 WBC (3.8-10.6) k/uL Sodium (137-145) mmol/L Chloride (98-107) mmol/L Carbon Dioxide (22-30) mmol/L Creatinine (0.66-1.25) mg/dL POC Glucose (mg/dL) 113 H 108 H (75-99) mg/dL Calcium (8.4-10.2) mg/dL Aldolase 11.5 H (1.2-7.6) U/L 08/21/19 08/22/19 08/22/19 Range/Units 20:36 04:31 04:31 WBC 21.2 H (3.8-10.6) k/uL Sodium 127 L (137-145) mmol/L Chloride 87 L (98-107) mmol/L Carbon Dioxide 35 H (22-30) mmol/L Creatinine 0.64 L (0.66-1.25) mg/dL POC Glucose (mg/dL) 106 H (75-99) mg/dL Calcium 8.3 L (8.4-10.2) mg/dL Aldolase (1.2-7.6) U/L Assessment and Plan (1) Lymphadenopathy Narrative/Plan: CT AP showing nonspecific, slight adenopathy. No plans for lymph node biopsy at this time Current Visit: Yes Status: Acute Priority: High Code(s): R59.1 - GENERALIZED ENLARGED LYMPH NODES SNOMED Code(s): 93044717 (2) Leukocytosis Narrative/Plan: Chronic but, progressive from previous. Stable now. ANC and ALC elevated. Flow cytometry requested on peripheral blood, still pending. CBC with differential ordered, daily labs while inpatient. Current Visit: Yes Status: Chronic Priority: Medium Code(s): D72.829 - ELEVATED WHITE BLOOD CELL COUNT, UNSPECIFIED SNOMED Code(s): 365859993 Plan: Working pt up for concerns of lymphoma or hematological disorder. Did review with pt the lymph nodes are large and his blood counts are not normal and we are trying to figure out why. He seems to understand what we are doing.
--- NOTE | 2019-08-22 12:23 | P.PN ---
Subjective Progress Note Date: 08/22/19 Principal diagnosis: Severe hyponatremia 63-year-old male patient with known history of schizophrenia maintained on a combination of risperidone and fluoxetine/Prozac by the previous hospital physician back in March 2019 for an aspiration pneumonia and severe hyponatremia. 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 He was treated with a hypertonic saline solution and he was treated for ventilator-dependent respiratory failure due to an extensive right lung pneumonia. He is also known to have COPD and hypertension and diabetes mellitus. The patient had a similar presentation where he was having generalized weakness and some degree of shortness of breath. He was asked to come in to the hospital and his roommate activated EMS services. The patient was having generalized weakness. The patient denied having any headaches or blurred vision or double vision and he denies having any numbness or tingling in his extremities. He denies having any nausea or vomiting. No constipation. No diarrhea. He had been falling and had trauma to his right foot and he had also some limited trauma to his head. He is a poor historian as such history is essentially unreliable. The patient had any shows sodium level of 107. He was started on the percent saline at the rate of 20 mL an hour and sodium gradually came up to 114 this morning. Currently is off the hypertonic saline solution. Mentation is improved. He has been bronchospastic congested and wheezy. The white cell count is 21. The osmolality of the urine was elevated at 458, urine sodium is at 63, serum osmolality is 228, LFTs are within normal, urine drug screen is positive for cocaine. The chest x-ray shows no acute abnormalities. The computed tomography scan of the head and the neck shows cervical and supraclavicular lymphadenopathy measuring up to 1.8 cm in size. He has also moderate to severe chronic paranasal sinus disease with underlying polyposis. He has also had some cervical spine disease. He has no intracranial abnormalities. There is chronic small vessel ischemic disease. On 08/19/2019 and seeing the patient for a follow-up. The covid 19 evaluation came back negative. The patient is looking well. No specific complaints. Overnight evaluation came back negative. The patient was felt to have some aspiration yesterday and the patient was placed nothing by mouth awaiting a swallow evaluation. He was having some issues with COPD exacerbation. I put him on IV Solu-Medrol. I also put him on empiric IV Rocephin. On today's evaluation going to remove the Rocephin and switch her to Unasyn as the patient may have had some aspiration. His left eye/eyelid infections improving. His sodium level is also improved. He was on hypertonic saline and this was discontinued as the patient's sodium level has been uptrending. Sodium level is up to 122. His mental status is adequate. He is not having any focal neurological deficit. The white cell count is 18. Renal function stable. On 08/20/2019, the patient is doing well. No specific complaints. Resting comfortably in bed. Sodium level is improving. No altered mentation. No agitation. The swallow evaluation he was provided diet again. Remains bronchospastic and wheezy and the patient would benefit from a prednisone burst taper which she is ready taken in addition to DuoNeb the last treatment [id number]. He is on heparin subcu for DVT prophylaxis. His fluid intake has been instructed. The patient will be started back on his Prozac. The sodium level today is at 126 which is improved. With a +22.8. Chest x-ray shows cardiomegaly with some limited left-sided pleural effusion. As for the hyponatremia, the patient was seen by nephrology and with fluid restriction the sodium levels improved up to 126. On 08/21/2019, patient has no specific complaints. Less progress bronchospastic and wheezy. Sodium level is up to 127. No altered mentation. No nausea vomiting or diarrhea or abdominal pain. The patient is currently on oral Augmentin. The eyelid infection of the left eye along with the conjunctivitis is improved. He is completing a prednisone burst taper. He is on DuoNeb the last treatment [id number]. Prozac was restarted. No significant agitation. Tolerating his diet. He has been downgraded to medical surgical floor and he'll be transferred hopefully today. Reevaluated today on 08/22/19, patient remains in the ICU, however his sodium is significantly improved, stable at 127 today. Renal functioning is relatively normal. Bicarb is a bit elevated at 35. WBC count is 21.2. Hemoglobin is 13.0. Clinically the patient is doing well, and feeling much better. Mental status seems to be improving steadily since his hyponatremia has been corrected. Objective - Vital Signs Vital signs: Vital Signs Temp 97.7 F 08/22/19 07:00 Pulse 78 08/22/19 11:32 Resp 16 08/22/19 07:00 BP 123/84 08/22/19 07:00 Pulse Ox 98 08/22/19 07:00 Intake & Output 08/21/19 08/22/19 08/22/19 18:59 06:59 18:59 Intake Total 1214 370 582 Output Total 1250 1450 375 Balance -36 -1080 207 Weight 99.7 kg Intake: Oral 1214 370 582 Output: Urine 1250 1450 375 Other: Voiding Method Urinal Urinal Urinal # Voids 1 - Exam GENERAL: Revealed a 64-year-old white male in no distress. EYES: PERRLA, EOMI, no icterus. HEENT: No neck masses no JVD, moist mucous membranes. NECK: JVD not raised; masses not palpable. HEART: Normal S1 and S2, no S3 gallop, no murmur. LUNGS: Diminished breath sounds at the bases, no rhonchi no wheezes. Symmetrical chest expansion. ABDOMEN: Obese, soft, nontender no megaly no rebound.. PSYCH: Normal mood affect and normal mental status examination NEUROLOGICAL: Alert and oriented 3, no gross focal deficit except for minimal left-sided weakness Skin: No rashes. - Labs CBC & Chem 7: 08/22/19 04:31 08/22/19 04:31 Labs: Abnormal Lab Results - Last 24 Hours (Table) 08/18/19 08/21/19 08/21/19 Range/Units 13:13 17:08 20:36 WBC (3.8-10.6) k/uL Lymphocytes # (Manual) (1.0-4.8) k/uL Monocytes # (Manual) (0-1.0) k/uL Sodium (137-145) mmol/L Chloride (98-107) mmol/L Carbon Dioxide (22-30) mmol/L Creatinine (0.66-1.25) mg/dL POC Glucose (mg/dL) 108 H 106 H (75-99) mg/dL Calcium (8.4-10.2) mg/dL Aldolase 11.5 H (1.2-7.6) U/L 08/22/19 08/22/19 08/22/19 Range/Units 04:31 04:31 11:57 WBC 21.2 H (3.8-10.6) k/uL Lymphocytes # (Manual) 13.78 H (1.0-4.8) k/uL Monocytes # (Manual) 1.91 H (0-1.0) k/uL Sodium 127 L (137-145) mmol/L Chloride 87 L (98-107) mmol/L Carbon Dioxide 35 H (22-30) mmol/L Creatinine 0.64 L (0.66-1.25) mg/dL POC Glucose (mg/dL) 107 H (75-99) mg/dL Calcium 8.3 L (8.4-10.2) mg/dL Aldolase (1.2-7.6) U/L Assessment and Plan Assessment: Assessment: -Acute hyponatremia, secondary to SIADH. Possibly medications induced. -Possible aspiration pneumonia. Improving. -Acute exacerbation of COPD, improving. Patient is known to have history of advanced COPD. History of nonspecific mediastinal adenopathy, needs to be monitored on outpatient basis. -Acute on chronic hypoxic and hypercapnic arrest or failure. Secondary to COPD and suspect aspiration pneumonia possibility. -Chronic left hemiparesis from prior stroke -Essential hypertension -Chronic nicotine dependence cigarette smoker -Acute metabolic encephalopathy secondary to electrolyte imbalance. And hyponatremia. Recommendation: Continue fluid restriction. Continue bronchodilators. Must have outpatient follow-up with Dr. Rajput. Restart Prozac. Advanced diet as tolerates. Transfer out of the ICU today. Patient could be transferred to a regular medical floor. We'll continue to follow as needed. Time with Patient: Less than 30
--- NOTE | 2019-08-22 16:11 | P.PN ---
Progress Note - Text Progress Note Date: 08/22/19 Chief Complaint: Weakness, History of presenting complaint: This is 64-year-old patient of Dr. Shah. Patient was here in March of this year and was then admitted with COPD exacerbation with acute hypoxic and hypercapnic respiratory failure, also an acute CVA with a lacunar infarct, severe hyponatremia diabetes type 2 schizophrenia. Patient is nonsmoker. Patient was now sent in by his roommate for some shortness of breath weak and tired. Patient is some chronic left-sided weakness. Patient rather tired not willing to give too much of history. Denies any fever and chills. This feeling tired and rundown. No headaches. Please been falling as a trauma to the right foot. Slight bruising. Patient's found to have a sodium of 107 hence was admitted to the ICU. He was started on hypertonic saline. Patient is to be short of breath and wheezing also got a cough. Apparently the patient has been taking cocaine. Admitted with severe symptomatic hyponatremia/SIADH, metabolic encephalopathy, aspiration pneumonia, COPD exacerbation. Admitted to the ICU. Started on hypertonic saline. Antibiotics, bronchodilators, steroids. Today-in the ICU. On nasal cannula. Tolerating a diet. Given a dose of Lasix earlier by Dr. Lancaster. Review of systems: Was done for constitutional, cardiovascular, GI, pulmonary. relevant finding as above Active Medications Acetaminophen (Tylenol Tab) 650 mg PO Q4HR PRN PRN Reason: Fever and/or Mild Pain Albuterol/Ipratropium (Duoneb 0.5 Mg-3 Mg/3 Ml Soln) 3 ml INHALATION RT-Q4H PRN PRN Reason: Shortness Of Breath Or Wheezing Albuterol/Ipratropium (Duoneb 0.5 Mg-3 Mg/3 Ml Soln) 3 ml INHALATION RT-QID [facility] Last Admin: 08/22/19 15:19 Dose: 3 ml Documented by: Amoxicillin/Clavulanate Potassium (Augmentin [id number]) 1 each PO Q12HR [facility] Last Admin: 08/22/19 09:38 Dose: 1 each Documented by: Aspirin (Aspirin) 325 mg PO DAILY [facility] Last Admin: 08/22/19 09:37 Dose: 325 mg Documented by: Atorvastatin Calcium (Lipitor) 40 mg PO HS [facility] Last Admin: 08/21/19 20:41 Dose: 40 mg Documented by: Budesonide (Pulmicort) 1 mg INHALATION RT-BID [facility] Last Admin: 08/22/19 07:51 Dose: 1 mg Documented by: Carvedilol (Coreg) 6.25 mg PO BID-W/MEALS [facility] Last Admin: 08/22/19 06:39 Dose: 6.25 mg Documented by: Cyanocobalamin (Vitamin B-12) 1,000 mcg IM DAILY [facility] Last Admin: 08/22/19 09:37 Dose: 1,000 mcg Documented by: Erythromycin (Romycin Ophth Oint) 1 applic LEFT EYE Q4HR [facility] Last Admin: 08/22/19 12:48 Dose: 1 applic Documented by: Fluoxetine HCl (Prozac) 20 mg PO DAILY [facility] Last Admin: 08/22/19 09:38 Dose: 20 mg Documented by: Formoterol Fumarate (Perforomist) 20 mcg INHALATION RT-BID [facility] Last Admin: 08/22/19 07:51 Dose: 20 mcg Documented by: Heparin Sodium (Porcine) (Heparin) 5,000 unit SQ Q8HR [facility] Last Admin: 08/22/19 09:38 Dose: 5,000 unit Documented by: Insulin Aspart (Novolog) 0 unit SQ [facility]; Protocol Last Admin: 08/22/19 12:48 Dose: Not Given Documented by: Naloxone HCl (Narcan) 0.2 mg IV Q2M PRN PRN Reason: Opioid Reversal Pantoprazole Sodium (Protonix) 40 mg PO AC-BRKFST [facility] Last Admin: 08/22/19 06:39 Dose: 40 mg Documented by: Prednisone () 40 mg PO DAILY [facility] Last Admin: 08/22/19 09:38 Dose: 40 mg Documented by: Physical examination: VITAL SIGNS: 97.7, 64, 16, 123/84, 98% on 2 L GENERAL: Sitting up in chair, comfortable EYES: Pupils equal. Conjunctiva normal. HEENT: External appearance of nose and ears normal, oral cavity-poor hygiene. Patient's cannot boils on the scalp left upper eyelid, face NECK: JVD not raised; masses not palpable. HEART: First and second heart sounds are normal; no edema. LUNGS: Respiratory rate increased, decreased breath sound, ABDOMEN: Soft, nontender, liver spleen not palpable, no masses palpable. PSYCH: Answering questions. NEUROLOGICAL: Cranial nerves grossly intact; no facial asymmetry, left-sided weakness INVESTIGATIONS, reviewed in the clinical context: White count 21.2 hemoglobin 13 potassium 4.6 creatinine 0.64 sodium 127 Previous testing White count 22.7 hemoglobin 14.5 platelets 195 sodium 107 chloride 72 creatinine 0.47 serum osmolality 228 albumin 3.9 albumin 3.9 UA positive for protein glucose ketones Urine drug screen positive for cocaine Computed tomography scan of the brain and M-tssdw-xkwbpwsx-to-severe chronic Nasal sinus disease, suspect polyposis no fracture. Chest x-ray film personally reviewed by me-infiltrate acute versus chronic EKG tracing personally reviewed by me-no sinus rhythm Right foot x-ray-no evidence of fracture Assessment: -Severe symptomatic hypoosmolar hyponatremia with known SIADH, possibly from P rozac improving -Probable aspiration pneumonia improving -Acute COPD exacerbation in a smoker-improving -Acute hypoxic respiratory failure from above-improving -Chronic left hemiparesis from prior stroke -Essential hypertension -Chronic nicotine dependence cigarette smoker -Acute metabolic encephalopathy and delirium from severe electrolyte abnormality and improved -Blunt injury to the right foot likely secondary to fall -Obesity BMI 30 -Patient's has a few boils on the left scalp left eyelid and the face-improved Plan: -Continue with fluid restriction. Per nephrology given 1 dose of IV Lasix. Spoke to the nurse. Looking into ECF. Patient be able to be discharged to ECF tomorrow. Patient be moved out of the ICU.
[2019-08-22 17:49] LABS: Glucose,Whole Blood 140 mg/dL (75-99)
[2019-08-22 20:27] LABS: Glucose,Whole Blood 145 mg/dL (75-99)
[2019-08-22] MEDS: ATORVASTATIN 40 MG TAB PO SCH (20:53)
[2019-08-22] MEDS: SODIUM CHLORIDE TAB 1 GM TAB PO SCH (22:21)
[2019-08-23] MEDS: ERYTHROMYCIN 5 MG/GM OPHTH OINT 3.5 GM TUBE LEFT EYE SCH ×3 (04:58→11:33)
[2019-08-23 05:05] LABS: HGB 13.3 gm/dL (13.0-17.5); MCH 29.3 pg (25.0-35.0); MCHC 31.7 g/dL (31.0-37.0); MCV 92.5 fL (80.0-100.0); Mean Platelet Volume 6.8; Platelet Count 239 k/uL (150-450); RBC 4.54 m/uL (4.30-5.90); RDW 12.9 % (11.5-15.5); WBC 22.9 k/uL (3.8-10.6)
[2019-08-23 05:11] LABS: ALT 14 U/L (4-49); AST 17 U/L (17-59); African American GFR (CKD) >90 (>60 ml/min/1.73 sqM); Albumin 3.3 g/dL (3.5-5.0); Alkaline Phosphatase 83 U/L (38-126); Anion Gap 6 mmol/L; Blood Urea Nitrogen 16 mg/dL (9-20); Calcium 8.3 mg/dL (8.4-10.2); Carbon Dioxide 33 mmol/L (22-30); Chloride 88 mmol/L (98-107); Glucose 86 mg/dL (74-99); Non-African American GFR(CKD) >90 (>60 ml/min/1.73 sqM); Potassium 4.7 mmol/L (3.5-5.1); Sodium 127 mmol/L (137-145); Total Bilirubin 0.5 mg/dL (0.2-1.3); Total Protein 5.7 g/dL (6.3-8.2)
[2019-08-23 05:47] LABS: Lymphocytes # (M) 16.03 k/uL (1.0-4.8); Monocytes # (M) 0.46 k/uL (0-1.0); Neutrophils # (M) 6.41 k/uL (1.3-7.7); Neutrophils % (M) 28 %; Nucleated Red Blood Cells 0 /100 WBC (0-0); Total Cells Counted 100
[2019-08-23] MEDS: INSULIN ASPART (NovoLOG) 100 UNIT/ML VIAL SQ SCH ×2 (06:55→12:45)
[2019-08-23 06:56] LABS: Glucose,Whole Blood 96 mg/dL (75-99)
[2019-08-23] MEDS: CARVEDILOL 6.25 MG TAB PO SCH (06:57)
[2019-08-23] MEDS: PANTOPRAZOLE 40 MG TABLET PO SCH (06:57)
[2019-08-23] MEDS: IPRATROPIUM-ALBUTEROL 3 ML NEB INHALATION SCH ×3 (07:39→15:37)
[2019-08-23] MEDS: FORMOTEROL FUMARATE 20 MCG/2 ML NEBU INHALATION SCH (07:39)
[2019-08-23] MEDS: BUDESONIDE 1 MG/2 ML NEBU INHALATION SCH (07:39)
[2019-08-23] MEDS: AMOXIC-POT CLAV 875-125MG 1 EACH TAB PO SCH (08:47)
[2019-08-23] MEDS: HEPARIN SODIUM,PORCINE 5,000 UNIT/ML 1 ML VIAL SQ SCH (08:47)
[2019-08-23] MEDS: ASPIRIN 325 MG TAB PO SCH (08:48)
[2019-08-23] MEDS: predniSONE 20 MG TAB PO SCH (08:48)
[2019-08-23] MEDS: SODIUM CHLORIDE TAB 1 GM TAB PO SCH (08:48)
[2019-08-23] MEDS: FLUoxetine HCL 20 MG CAP PO SCH (08:48)
--- NOTE | 2019-08-23 09:30 | XR ---
EXAMINATION TYPE: XR chest 1V portable DATE OF EXAM: 08/23/2019 COMPARISON: 08/20/2019 HISTORY: Shortness of breath TECHNIQUE: Single frontal view of the chest is obtained. FINDINGS: Bilateral consolidation and small effusion. Biapical pleural thickening. There is cardiome henok. No overt failure. IMPRESSION: There is bilateral infiltrate and small effusion mildly progressed on the right.
--- NOTE | 2019-08-23 10:01 | P.PN ---
Subjective Patient is seen in follow-up for hyponatremia. Sodium level stable. Oral intake is good. He is maintained on fluid restriction. No vomiting or d iarrhea. Denies chest pain or shortness of breath. He received a dose of IV Lasix yesterday and was also started on sodium chloride tablets. Vital signs are stable. General: The patient appeared well nourished and normally developed. HEENT: Head exam is unremarkable. Neck is without jugular venous distension. LUNGS: Lungs are clear to auscultation and percussion. Breath sounds decreased. HEART: Rate and Rhythm are regular. ABDOMEN: Soft, nontender. EXTREMITITES: No edema. Objective - Vital Signs Vital signs: Vital Signs Temp 98.9 F 08/23/19 06:05 Pulse 68 08/23/19 07:59 Resp 14 08/23/19 06:05 BP 139/97 08/23/19 06:05 Pulse Ox 93 L 08/23/19 06:05 Intake & Output 08/22/19 08/23/19 08/23/19 18:59 06:59 18:59 Intake Total 762 444 Output Total 700 500 Balance 62 -56 Weight 97.9 kg Intake: Oral 762 444 Output: Urine 700 500 Other: Voiding Method Bedside Commode Bedside Commode Urinal Urinal - Labs CBC & Chem 7: 08/23/19 04:20 08/23/19 04:20 Labs: Abnormal Lab Results - Last 24 Hours (Table) 08/18/19 08/22/19 08/22/19 Range/Units 13:13 04:31 11:57 WBC (3.8-10.6) k/uL Lymphocytes # (Manual) 13.78 H (1.0-4.8) k/uL Monocytes # (Manual) 1.91 H (0-1.0) k/uL Sodium (137-145) mmol/L Chloride (98-107) mmol/L Carbon Dioxide (22-30) mmol/L POC Glucose (mg/dL) 107 H (75-99) mg/dL Calcium (8.4-10.2) mg/dL Total Protein (6.3-8.2) g/dL Albumin (3.5-5.0) g/dL Aldolase 11.5 H (1.2-7.6) U/L 06/11/0208/22/19 08/22/19 Range/Units 13:09 17:48 20:24 WBC (3.8-10.6) k/uL Lymphocytes # (Manual) (1.0-4.8) k/uL Monocytes # (Manual) (0-1.0) k/uL Sodium 126 L (137-145) mmol/L Chloride (98-107) mmol/L Carbon Dioxide (22-30) mmol/L POC Glucose (mg/dL) 140 H 145 H (75-99) mg/dL Calcium (8.4-10.2) mg/dL Total Protein (6.3-8.2) g/dL Albumin (3.5-5.0) g/dL Aldolase (1.2-7.6) U/L 08/23/19 08/23/19 Range/Units 04:20 04:20 WBC 22.9 H (3.8-10.6) k/uL Lymphocytes # (Manual) 16.03 H (1.0-4.8) k/uL Monocytes # (Manual) (0-1.0) k/uL Sodium 127 L (137-145) mmol/L Chloride 88 L (98-107) mmol/L Carbon Dioxide 33 H (22-30) mmol/L POC Glucose (mg/dL) (75-99) mg/dL Calcium 8.3 L (8.4-10.2) mg/dL Total Protein 5.7 L (6.3-8.2) g/dL Albumin 3.3 L (3.5-5.0) g/dL Aldolase (1.2-7.6) U/L Assessment and Plan Plan: Assessment: 1. Hyponatremia. Appears euvolemic. 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 Sodium level stable. 2. Pneumonia maintain on antibiotics. 3. History of bipolar disorder. Plan: Samsca 15 mg once today. Encourage oral intake, particularly protein. Maintain sodium chloride tablets. Repeat sodium level at 5 PM today.
[2019-08-23] MEDS: CYANOCOBALAMIN 1,000 MCG/ML 1 ML VIAL IM SCH (11:32)
[2019-08-23 11:35] LABS: Glucose,Whole Blood 142 mg/dL (75-99)
[2019-08-23] MEDS ORDERED: TOLVAPTAN 15 MG 1/2 TABLET PO ONE (12:00)
--- NOTE | 2019-08-23 12:34 | P.PN ---
Subjective Progress Note Date: 08/23/19 Principal diagnosis: Severe hyponatremia 63-year-old male patient with known history of schizophrenia maintained on a combination of risperidone and fluoxetine/Prozac by the previous hospital physician back in March 2019 for an aspiration pneumonia and severe hyponatremia. 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 He was treated with a hypertonic saline solution and he was treated for ventilator-dependent respiratory failure due to an extensive right lung pneumonia. He is also known to have COPD and hypertension and diabetes mellitus. The patient had a similar presentation where he was having generalized weakness and some degree of shortness of breath. He was asked to come in to the hospital and his roommate activated EMS services. The patient was having generalized weakness. The patient denied having any headaches or blurred vision or double vision and he denies having any numbness or tingling in his extremities. He denies having any nausea or vomiting. No constipation. No diarrhea. He had been falling and had trauma to his right foot and he had also some limited trauma to his head. He is a poor historian as such history is essentially unreliable. The patient had any shows sodium level of 107. He was started on the percent saline at the rate of 20 mL an hour and sodium gradually came up to 114 this morning. Currently is off the hypertonic saline solution. Mentation is improved. He has been bronchospastic congested and wheezy. The white cell count is 21. The osmolality of the urine was elevated at 458, urine sodium is at 63, serum osmolality is 228, LFTs are within normal, urine drug screen is positive for cocaine. The chest x-ray shows no acute abnormalities. The computed tomography scan of the head and the neck shows cervical and supraclavicular lymphadenopathy measuring up to 1.8 cm in size. He has also moderate to severe chronic paranasal sinus disease with underlying polyposis. He has also had some cervical spine disease. He has no intracranial abnormalities. There is chronic small vessel ischemic disease. On 08/19/2019 and seeing the patient for a follow-up. The covid 19 evaluation came back negative. The patient is looking well. No specific complaints. Overnight evaluation came back negative. The patient was felt to have some aspiration yesterday and the patient was placed nothing by mouth awaiting a swallow evaluation. He was having some issues with COPD exacerbation. I put him on IV Solu-Medrol. I also put him on empiric IV Rocephin. On today's evaluation going to remove the Rocephin and switch her to Unasyn as the patient may have had some aspiration. His left eye/eyelid infections improving. His sodium level is also improved. He was on hypertonic saline and this was discontinued as the patient's sodium level has been uptrending. Sodium level is up to 122. His mental status is adequate. He is not having any focal neurological deficit. The white cell count is 18. Renal function stable. On 08/20/2019, the patient is doing well. No specific complaints. Resting comfortably in bed. Sodium level is improving. No altered mentation. No agitation. The swallow evaluation he was provided diet again. Remains bronchospastic and wheezy and the patient would benefit from a prednisone burst taper which she is ready taken in addition to DuoNeb the last treatment [id number]. He is on heparin subcu for DVT prophylaxis. His fluid intake has been instructed. The patient will be started back on his Prozac. The sodium level today is at 126 which is improved. With a +22.8. Chest x-ray shows cardiomegaly with some limited left-sided pleural effusion. As for the hyponatremia, the patient was seen by nephrology and with fluid restriction the sodium levels improved up to 126. On 08/21/2019, patient has no specific complaints. Less progress bronchospastic and wheezy. Sodium level is up to 127. No altered mentation. No nausea vomiting or diarrhea or abdominal pain. The patient is currently on oral Augmentin. The eyelid infection of the left eye along with the conjunctivitis is improved. He is completing a prednisone burst taper. He is on DuoNeb the last treatment [id number]. Prozac was restarted. No significant agitation. Tolerating his diet. He has been downgraded to medical surgical floor and he'll be transferred hopefully today. Reevaluated today on 08/22/19, patient remains in the ICU, however his sodium is significantly improved, stable at 127 today. Renal functioning is relatively normal. Bicarb is a bit elevated at 35. WBC count is 21.2. Hemoglobin is 13.0. Clinically the patient is doing well, and feeling much better. Mental status seems to be improving steadily since his hyponatremia has been corrected. Patient was reevaluated today on 08/23/19, remains as an overflow in the intensive care unit. Patient is still on fluid restrictions, sodium is 127 today. Patient was started on sodium chloride tablets today by nephrology. No cough no wheezing no shortness of breath. Patient is relatively asymptomatic. Mental status seems to be significantly improved over the last few days. Objective - Vital Signs Vital signs: Vital Signs Temp 98.9 F 08/23/19 06:05 Pulse 72 08/23/19 11:46 Resp 14 08/23/19 08:00 BP 139/97 08/23/19 06:05 Pulse Ox 93 L 08/23/19 06:05 Intake & Output 08/22/19 08/23/19 08/23/19 18:59 06:59 18:59 Intake Total 762 444 370 Output Total 700 500 Balance 62 -56 370 Weight 97.9 kg Intake: Oral 762 444 370 Output: Urine 700 500 Other: Voiding Method Bedside Commode Bedside Commode Urinal Urinal Urinal - Exam GENERAL: Revealed a 64-year-old white male in no distress. EYES: PERRLA, EOMI, no icterus. HEENT: No neck masses no JVD, moist mucous membranes. NECK: JVD not raised; masses not palpable. HEART: Normal S1 and S2, no S3 gallop, no murmur. LUNGS: Minimal fine crackles at the bases. No wheezing. ABDOMEN: Obese, soft, nontender no megaly no rebound.. PSYCH: Normal mood affect and normal mental status examination NEUROLOGICAL: Alert and oriented 3, no gross focal deficit except for minimal left-sided weakness Skin: No rashes. - Labs CBC & Chem 7: 08/23/19 04:20 08/23/19 04:20 Labs: Abnormal Lab Results - Last 24 Hours (Table) 08/22/19 08/22/19 08/22/19 Range/Units 13:09 17:48 20:24 WBC (3.8-10.6) k/uL Lymphocytes # (Manual) (1.0-4.8) k/uL Sodium 126 L (137-145) mmol/L Chloride (98-107) mmol/L Carbon Dioxide (22-30) mmol/L POC Glucose (mg/dL) 140 H 145 H (75-99) mg/dL Calcium (8.4-10.2) mg/dL Total Protein (6.3-8.2) g/dL Albumin (3.5-5.0) g/dL 08/23/19 08/23/19 08/23/19 Range/Units 04:20 04:20 11:32 WBC 22.9 H (3.8-10.6) k/uL Lymphocytes # (Manual) 16.03 H (1.0-4.8) k/uL Sodium 127 L (137-145) mmol/L Chloride 88 L (98-107) mmol/L Carbon Dioxide 33 H (22-30) mmol/L POC Glucose (mg/dL) 142 H (75-99) mg/dL Calcium 8.3 L (8.4-10.2) mg/dL Total Protein 5.7 L (6.3-8.2) g/dL Albumin 3.3 L (3.5-5.0) g/dL Assessment and Plan Assessment: Assessment: -Acute hyponatremia, secondary to SIADH. Possibly medications induced. -Possible aspiration pneumonia. Improving. -Acute exacerbation of COPD, improving. Patient is known to have history of advanced COPD. History of nonspecific mediastinal adenopathy, needs to be monitored on outp atient basis. -Acute on chronic hypoxic and hypercapnic arrest or failure. Secondary to COPD and suspect aspiration pneumonia possibility. -Chronic left hemiparesis from prior stroke -Essential hypertension -Chronic nicotine dependence cigarette smoker -Acute metabolic encephalopathy secondary to electrolyte imbalance. And hyponatremia. Recommendation: Continue fluid restriction. Salt tablets were added today. Continue bronchodilators. Advanced diet as tolerates. Patient could be transferred to a regular medical floor. We'll continue to follow as needed. Time with Patient: Less than 30
--- NOTE | 2019-08-23 12:43 | P.PN ---
Subjective Progress Note Date: 08/23/19 Principal diagnosis: altered mental status, hyponatremia, leukocytosis In follow-up today patient is sitting up in the chair, alert and oriented, he denies nausea, his appetite is pretty decent, some mild shortness of breath on exertion, congestive type cough, denies purulent sputum production, the abdominal pain or cramping, he thinks he has had a bowel movement, denies any p ain. Objective - Vital Signs Vital signs: Vital Signs Temp 98.9 F 08/23/19 06:05 Pulse 72 08/23/19 11:46 Resp 14 08/23/19 08:00 BP 139/97 08/23/19 06:05 Pulse Ox 93 L 08/23/19 06:05 Intake & Output 08/22/19 08/23/19 08/23/19 18:59 06:59 18:59 Intake Total 762 444 370 Output Total 700 500 Balance 62 -56 370 Weight 97.9 kg Intake: Oral 762 444 370 Output: Urine 700 500 Other: Voiding Method Bedside Commode Bedside Commode Urinal Urinal Urinal - Constitutional General appearance: Present: cooperative, no acute distress, obese - EENT EENT Comment(s): left eye redness/swelling is improving Eyes: Present: anicteric sclerae, EOMI ENT: Present: hearing grossly normal, normal oropharynx - Respiratory Respiratory: bilateral: CTA, diminished - Cardiovascular Rhythm: regular Heart sounds: normal: S1, S2 Abnormal Heart Sounds: Absent: systolic murmur, diastolic murmur, rub, S3 Gallop, S4 Gallop, click, other - Peripheral edema leg Peripheral Edema: bilateral: None - Gastrointestinal General gastrointestinal: Present: normal bowel sounds, soft - Musculoskeletal Musculoskeletal: Present: strength equal bilaterally - Psychiatric Psychiatric: Present: A&O x's 3 - Labs CBC & Chem 7: 08/23/19 04:20 08/23/19 04:20 Labs: Abnormal Lab Results - Last 24 Hours (Table) 08/22/19 08/22/19 08/22/19 Range/Units 13:09 17:48 20:24 WBC (3.8-10.6) k/uL Lymphocytes # (Manual) (1.0-4.8) k/uL Sodium 126 L (137-145) mmol/L Chloride (98-107) mmol/L Carbon Dioxide (22-30) mmol/L POC Glucose (mg/dL) 140 H 145 H (75-99) mg/dL Calcium (8.4-10.2) mg/dL Total Protein (6.3-8.2) g/dL Albumin (3.5-5.0) g/dL 08/23/19 08/23/19 08/23/19 Range/Units 04:20 04:20 11:32 WBC 22.9 H (3.8-10.6) k/uL Lymphocytes # (Manual) 16.03 H (1.0-4.8) k/uL Sodium 127 L (137-145) mmol/L Chloride 88 L (98-107) mmol/L Carbon Dioxide 33 H (22-30) mmol/L POC Glucose (mg/dL) 142 H (75-99) mg/dL Calcium 8.3 L (8.4-10.2) mg/dL Total Protein 5.7 L (6.3-8.2) g/dL Albumin 3.3 L (3.5-5.0) g/dL Assessment and Plan (1) Lymphadenopathy Narrative/Plan: CT AP showing nonspecific, slight adenopathy. No plans for lymph node biopsy at this time. Current Visit: Yes Status: Acute Priority: High Code(s): R59.1 - GENERALIZED ENLARGED LYMPH NODES SNOMED Code(s): 57305026 (2) Leukocytosis Narrative/Plan: Chronic but, progressive from previous. Stable now. ANC is normalized, ALC continues to be elevated. Flow cytometry requested on peripheral blood, still pending, contacted the lab, waiting for a report from [place]. CBC with differential ordered, daily labs while inpatient. Current Visit: Yes Status: Chronic Priority: Medium Code(s): D72.829 - ELEVATED WHITE BLOOD CELL COUNT, UNSPECIFIED SNOMED Code(s): 548190278 Plan: Working pt up for concerns of lymphoma or hematological disorder. Did review with pt the lymph nodes are large and his blood counts are not normal and we are trying to figure out why. Reviewed this again with the patient. He did not have any questions.
[2019-08-23 12:44] VITALS: BP 106/73; TEMP 98.9
--- NOTE | 2019-08-23 14:37 | P.DS ---
Providers Date of admission: 08/17/19 17:44 Expected date of discharge: 08/23/19 Attending physician: Fabián Culver Consults: 08/17/19 17:07 Consult Physician Routine Consulting Provider: Zeke Mccoy Consult Reason/Comments: Leukocytosis; lymphadenopathy Do you want consulting provider notified?: Yes Consult Physician Stat Consulting Provider: Kareen Rajput Consult Reason/Comments: Critical Care Do you want consulting provider notified?: Already Contacted Consult Physician Stat Consulting Provider: Felicity Garcia Consult Reason/Comments: Hyponatremia Do you want consulting provider notified?: Already Contacted 08/17/19 17:21 Consult Physician Routine Consulting Provider: Christiano Kelley Consult Reason/Comments: Weakness; hyponatremia Do you want consulting provider notified?: Yes Primary care physician: [facility] Course: Chief Complaint: Weakness, History of presenting complaint: This is 64-year-old patient of Dr. Shah. Patient was here in March of this year and was then admitted with COPD exacerbation with acute hypoxic and hypercapnic respiratory failure, also an acute CVA with a lacunar infarct, severe hyponatremia diabetes type 2 schizophrenia. Patient is nonsmoker. Patient was now sent in by his roommate for some shortness of breath weak and tired. Patient is some chronic left-sided weakness. Patient rather tired not willing to give too much of history. Denies any fever and chills. This feeling tired and rundown. No headaches. Please been falling as a trauma to the right foot. Slight bruising. Patient's found to have a sodium of 107 hence was admitted to the ICU. He was started on hypertonic saline. Patient is to be short of breath and wheezing also got a cough. Apparently the patient has been taking cocaine. Admitted with severe symptomatic hyponatremia/SIADH, metabolic encephalopathy, aspiration pneumonia, COPD exacerbation. Admitted to the ICU. Started on hypertonic saline. Antibiotics, bronchodilators, steroids. Today-doing well. Eating well. Given [address] dose [address]a [address] Dr[address] Lancaster earlier today. Discussed with him. Patient should be up to go to the ECF today. Dis cussed with load planner. Discussion and discharge planning more than 35 minutes Consultation: Dr. Lancaster from nephrology Dr. Miranda-pulmonary Dr. Mccoy from oncology Dr. Collins from neurology Physical examination: VITAL SIGNS: 98.9, 69, 20, 106/73, 98% on 2 L GENERAL: Propped up in bed, awake. We'll EYES: Pupils equal. Conjunctiva normal. HEENT: External appearance of nose and ears normal, oral cavity-poor hygiene. Patient's cannot boils on the scalp left upper eyelid, face NECK: JVD not raised; masses not palpable. HEART: First and second heart sounds are normal; no edema. LUNGS: Respiratory rate increased, decreased breath sound, ABDOMEN: Soft, nontender, liver spleen not palpable, no masses palpable. PSYCH: Answering questions. NEUROLOGICAL: Cranial nerves grossly intact; no facial asymmetry, left-sided weakness INVESTIGATIONS, reviewed in the clinical context: White count 22.9 hemoglobin 13.3 sodium 127 potassium 4.7 creatinine 0.74 Previous testing White count 22.7 hemoglobin 14.5 platelets 195 sodium 107 chloride 72 creatinine 0.47 serum osmolality 228 albumin 3.9 albumin 3.9 UA positive for protein glucose ketones Urine drug screen positive for cocaine Computed tomography scan of the brain and U-zzxpt-eelynvax-to-severe chronic Nasal sinus disease, suspect polyposis no fracture. Chest x-ray film personally reviewed by me-infiltrate acute versus chronic EKG tracing personally reviewed by me-no sinus rhythm Right foot x-ray-no evidence of fracture Assessment: -Severe symptomatic hypoosmolar hyponatremia with known SIADH, possibly from Prozac improving -Probable aspiration pneumonia improving -Acute COPD exacerbation in a smoker-improving -Acute hypoxic respiratory failure from above-improving -Chronic left hemiparesis from prior stroke -Essential hypertension -Chronic nicotine dependence cigarette smoker -Acute metabolic encephalopathy and delirium from severe electrolyte abnormality and improved -Blunt injury to the right foot likely secondary to fall -Obesity BMI 30 -Patient's has a few boils on the left scalp left eyelid and the face-improved Disposition: [facility] Patient Condition at Discharge: Stable Plan - Discharge Summary New Discharge Prescriptions: New Aspirin 81 mg PO DAILY #1 chewable Amoxic-Pot Clav 875-125Mg [Augmentin 875-125] 1 each PO Q12HR #10 tab Ipratropium-Albuterol Nebulize [Duoneb 0.5 mg-3 mg/3 ml Soln] 3 ml INHALATION RT-QID ml Ipratropium-Albuterol Nebulize [Duoneb 0.5 mg-3 mg/3 ml Soln] 3 ml INHALATION RT-Q4H PRN ml PRN Reason: Shortness Of Breath Or Wheezing Atorvastatin [Lipitor] 40 mg PO HS tab predniSONE 10 mg PO DAILY #30 tab Pantoprazole [Protonix] 40 mg PO AC-BRKFST tablet. Erythromycin Ophth Oint [Romycin Ophth Oint] 1 applic LEFT EYE Q4HR applic Sodium Chloride Tab 1 gm PO BID tab Continue FLUoxetine HCL [PROzac] 20 mg PO DAILY #30 cap Carvedilol [Coreg] 6.25 mg PO BID-W/MEALS tab Discontinued risperiDONE 3 mg PO BID #60 tablet Discharge Medication List FLUoxetine HCL [PROzac] 20 mg PO DAILY #30 cap 07/10/16 [Rx] Carvedilol [Coreg] 6.25 mg PO BID-W/MEALS tab 04/13/19 [Rx] Amoxic-Pot Clav 875-125Mg [Augmentin 875-125] 1 each PO Q12HR #10 tab 08/23/19 [Rx] Aspirin 81 mg PO DAILY #1 chewable 08/23/19 [Rx] Atorvastatin [Lipitor] 40 mg PO HS tab 08/23/19 [Rx] Erythromycin Ophth Oint [Romycin Ophth Oint] 1 applic LEFT EYE Q4HR applic 08/23/19 [Rx] Ipratropium-Albuterol Nebulize [Duoneb 0.5 mg-3 mg/3 ml Soln] 3 ml INHALATION RT-Q4H PRN ml 08/23/19 [Rx] Ipratropium-Albuterol Nebulize [Duoneb 0.5 mg-3 mg/3 ml Soln] 3 ml INHALATION RT-QID ml 08/23/19 [Rx] Pantoprazole [Protonix] 40 mg PO AC-BRKFST tablet. 08/23/19 [Rx] Sodium Chloride Tab 1 gm PO BID tab 08/23/19 [Rx] predniSONE 10 mg PO DAILY #30 tab 08/23/19 [Rx] Follow up Appointment(s)/Referral(s): Leta Everett DO [Doctor of Osteopathic Medicine] - 1 Week Quan Shah DO [Primary Care Provider] - 1-2 days
[2019-08-23 15:22] LABS: African American GFR (CKD) >90 (>60 ml/min/1.73 sqM); Anion Gap 7 mmol/L; Blood Urea Nitrogen 19 mg/dL (9-20); Calcium 8.4 mg/dL (8.4-10.2); Carbon Dioxide 30 mmol/L (22-30); Chloride 93 mmol/L (98-107); Glucose 92 mg/dL (74-99); Non-African American GFR(CKD) >90 (>60 ml/min/1.73 sqM); Potassium 4.8 mmol/L (3.5-5.1); Sodium 130 mmol/L (137-145)
[2019-08-23 15:41] VITALS: PULSE 77; RESP 18
== END 2019-08-23 16:20 | DRG 643 ==
LOC: EC 14:31 → 2SICU 17:44
PROVIDERS: ADMIT Hospitalist; ATTEND Hospitalist
DX: E22.2 Syndrome of inappropriate secretion of antidiuretic hormone (principal); G92 Toxic encephalopathy; J69.0 Pneumonitis due to inhalation of food and vomit; J96.22 Acute and chronic respiratory failure with hypercapnia; J96.21 Acute and chronic respiratory failure with hypoxia; J44.1 Chronic obstructive pulmonary disease with (acute) exacerbation; J90 Pleural effusion, not elsewhere classified; I69.354 Hemiplegia and hemiparesis following cerebral infarction affecting left non-dominant side; D72.820 Lymphocytosis (symptomatic); I11.9 Hypertensive heart disease without heart failure; T43.225A Adverse effect of selective serotonin reuptake inhibitors, initial encounter; E11.9 Type 2 diabetes mellitus without complications; E66.9 Obesity, unspecified; E86.1 Hypovolemia; F17.210 Nicotine dependence, cigarettes, uncomplicated; Z20.828 Contact with and (suspected) exposure to other viral communicable diseases; F20.9 Schizophrenia, unspecified; F31.9 Bipolar disorder, unspecified; H01.006 Unspecified blepharitis left eye, unspecified eyelid; H10.9 Unspecified conjunctivitis; J32.0 Chronic maxillary sinusitis; L02.92 Furuncle, unspecified; J32.4 Chronic pansinusitis; R59.0 Localized enlarged lymph nodes; S99.821A Other specified injuries of right foot, initial encounter; T14.8XXA Other injury of unspecified body region, initial encounter; R29.6 Repeated falls; Z68.30 Body mass index [BMI] 30.0-30.9, adult; Z79.899 Other long term (current) drug therapy; Z88.2 Allergy status to sulfonamides; W19.XXXA Unspecified fall, initial encounter
CPT/HCPCS: 36415; 51702; 70450; 71045; 71046; 72125; 74177; 80048; 80053; 80306; 81001; 82085; 82550; 82607; 83735; 83930; 83935; 84295; 84300; 84443; 84484; 85025; 85610; 85652; 85730; 87070; 87205; 93005; 94640; 96360; 96361; 99291

== ENCOUNTER 2019-09-08 12:32 | Day surgery (SDC) | payer MEDICARE ==
[2019-09-08 12:44] VITALS: PULSE 82; RESP 20; TEMP 98.2
[2019-09-08 13:06] LABS: Glucose,Whole Blood 116 mg/dL (75-99)
[2019-09-08 13:45] VITALS: BP 120/85
--- NOTE | 2019-09-08 14:06 | US ---
ULTRASOUND GUIDED LEFT NECK LYMPH NODE CORE BIOPSY: CLINICAL HISTORY: Left neck lymphadenopathy FINDINGS: The procedure was explained to the patient. The risks, complications, benefits and alternatives were discussed and any questions were answered. Informed consent was obtained. Patient was placed supin e on the ultrasound table and prepped and draped in the usual sterile fashion. Utilizing a 18-gauge core biopsy needle, 3 passes were made into the requested left neck lymph node. Patient was stable throughout the procedure. Pathology is pending. All elements of maximal barrier technique were utilized. IMPRESSION: 1. Successful ultrasound guided core biopsy left neck lymphadenopathy. Pathology pending.
== END 2019-09-08 13:50 | disposition home or self-care (01) ==
LOC: RADPROMAIN 12:32
PROVIDERS: ATTEND Surgery
DX: C83.01 Small cell B-cell lymphoma, lymph nodes of head, face, and neck (principal)
CPT/HCPCS: 38505; 76942; 88305; 88341; 88342

== ENCOUNTER 2020-12-25 13:04 | Inpatient (IN) | payer MEDICARE, MEDICAID ==
--- NOTE | 2020-12-25 13:46 | ED ---
General Adult HPI - General Source: patient, RN notes reviewed, old records reviewed Mode of arrival: ambulatory Limitations: no limitations <Jose Guardado - Last Filed: 12/25/20 13:43> <Jose Pacheco - Last Filed: 12/25/20 17:26> - General Chief complaint: Psychiatric Symptoms Stated complaint: EPS Eval Time Seen by Provider: 12/25/20 13:35 - History of Present Illness Initial comments: 65-year-old male brought in under petition for psychiatric evaluation. [facility] and was having apparent hallucinations and seemed to be responding to internal stimuli. He was brought in for psychiatric evaluation. The patient is alert and oriented. He does have a history of schizophrenia. He is not sure what medications he is on has not been on them for at least the past 24 hours. (Jose Guardado) - Related Data Home Medications Medication Instructions Recorded Confirmed No Known Home Medications 12/25/20 12/25/20 Allergies Allergy/AdvReac Type Severity Reaction Status Date / Time Sulfa (Sulfonamide Allergy Rash/Hives Verified 12/25/20 16:25 Antibiotics) Review of Systems ROS Other: All systems not noted in ROS Statement are negative. <Jose Guardado - Last Filed: 12/25/20 13:43> ROS Other: All systems not noted in ROS Statement are negative. <Jose Pacheco - Last Filed: 12/25/20 17:26> ROS Statement: Those systems with pertinent positive or pertinent negative responses have been documented in the HPI. Past Medical History Past Medical History: COPD, Diabetes Mellitus, Hypertension Additional Past Medical History / Comment(s): Previous history of CVA, s chizophrenia, type 2 diabetes mellitus, history of SIADH with severe hyponatremia, history of mediastinal lymphadenopathy, history of pansinusitis with possible mastoiditis on a CAT scan of the brain and MRI of the brain, history of lacunar infarct with some right-sided facial weakness. History of Any Multi-Drug Resistant Organisms: None Reported Past Surgical History: Orthopedic Surgery Additional Past Surgical History / Comment(s): sinus sx Past Anesthesia/Blood Transfusion Reactions: No Reported Reaction Past Psychological History: Schizophrenia Smoking Status: Never smoker Past Alcohol Use History: None Reported Past Drug Use History: Cocaine <Jose Guardado - Last Filed: 12/25/20 13:43> General Exam Limitations: no limitations General appearance: alert, in no apparent distress Head exam: Present: atraumatic, normocephalic Eye exam: Present: normal appearance, PERRL Neck exam: Present: normal inspection. Absent: tenderness Respiratory exam: Present: normal lung sounds bilaterally. Absent: respiratory distress, wheezes Cardiovascular Exam: Present: regular rate, normal rhythm GI/Abdominal exam: Present: soft. Absent: distended, tenderness, guarding Extremities exam: Present: normal inspection, normal capillary refill. Absent: pedal edema Neurological exam: Present: alert, oriented X3. Absent: motor sensory deficit Psychiatric exam: Present: flat affect Skin exam: Present: warm, dry, intact <Jose Guardado - Last Filed: 12/25/20 13:43> Course <Jose Guardado - Last Filed: 12/25/20 13:43> Vital Signs 12/25/20 13:21 Temperature 97.9 F Pulse Rate 102 H Respiratory 20 Rate Blood Pressure 140/101 O2 Sat by Pulse 95 Oximetry - Reevaluation(s) Reevaluation #1: 12/25/20 13:43 Patient cleared for EPS evaluation (Jose Guardado) Reevaluation #2: 12/25/20 1500 Case signed out at shift change to Dr. Pacheco (Jose Guardado) Medical Decision Making <Jose Pacheco - Last Filed: 12/25/20 17:26> - Medical Decision Making Patient was sent in for psychiatric evaluation. He has been exhibiting some bizarre behaviors. He is under custody of the police. Our psychiatric team has evaluated him and recommends inpatient psychiatric treatment. He apparently does have a history of schizophrenia. He states that he has been taking his Risperdal regularly. The covert test is negative. The drug screen is negative. The patient is admitted to psychiatric floor for further treatment. (Jose Pacheco) - Lab Data Lab Results 12/25/20 12/25/20 Range/Units 13:58 16:35 Urine Opiates Screen Not Detected (NotDetected) Ur Oxycodone Screen Not Detected (NotDetected) Urine Methadone Screen Not Detected (NotDetected) Ur Propoxyphene Screen Not Detected (NotDetected) Ur Barbiturates Screen Not Detected (NotDetected) U Tricyclic Antidepress Not Detected (NotDetected) Ur Phencyclidine Scrn Not Detected (NotDetected) Ur Amphetamines Screen Not Detected (NotDetected) U Methamphetamines Scrn Not Detected (NotDetected) U Benzodiazepines Scrn Not Detected (NotDetected) Urine Cocaine Screen Not Detected (NotDetected) U Marijuana (THC) Screen Not Detected (NotDetected) Coronavirus (PCR) Not Detected (Not Detectd) Disposition <Jose Guaraddo - Last Filed: 12/25/20 13:43> Time of Disposition: 17:26 Decision Date: 12/25/20 Decision Time: 17:26 <Jose Pacheco - Last Filed: 12/25/20 17:26> Clinical Impression: Psychosis Disposition: ADMITTED IP TO THIS [facility] Condition: Good Referrals: None,Stated [Primary Care Provider] - 1-2 days
[2020-12-25 14:28] LABS: Amphetamine Screen,Urine Not Detected (NotDetected); Barbiturate Screen,Urine Not Detected (NotDetected); Benzodiazepines Screen,Urine Not Detected (NotDetected); Cocaine Screen,Urine Not Detected (NotDetected); Methadone Screen, Urine Not Detected (NotDetected); Opiate Screen,Urine Not Detected (NotDetected); Oxycodone Screen, Urine Not Detected (NotDetected); Phencyclidine Screen,Urine Not Detected (NotDetected); Tricyclic Antidepressant,Urine Not Detected (NotDetected); Urn Cannabinoid Scrn Not Detected (NotDetected)
[2020-12-25] MEDS ORDERED: ONDANSETRON 4 MG/2 ML VIAL IVP STA (17:29)
[2020-12-25] MEDS ORDERED: MAGNESIUM HYDROXIDE 2,400 MG/10 ML CUP PO PRN (20:22)
[2020-12-25] MEDS ORDERED: MAG HYDROX/AL HYDROX/SIMETH 30 ML CUP PO PRN (20:22)
[2020-12-25] MEDS ORDERED: HALOPERIDOL LACTATE 5 MG/ML 1 ML VIAL IM PRN (20:31)
[2020-12-25] MEDS ORDERED: haloperidoL 5 MG TAB PO PRN (20:38)
[2020-12-25] MEDS ORDERED: traZODone HCL 50 MG TAB PO PRN (20:43)
[2020-12-25] MEDS ORDERED: PALIPERIDONE 3 MG TAB.ER.24 PO SCH (21:00)
[2020-12-25] MEDS ORDERED: LORazepam 2 MG/ML INJ IM SCH (22:00)
[2020-12-25] MEDS: NICOTINE 14MG/24HR PATCH TRANSDERM SCH (23:37)
[2020-12-25] MEDS ORDERED: LORazepam 2 MG/ML INJ IM PRN (23:38)
[2020-12-26 07:03] LABS: ALT 18 U/L (4-49); AST 25 U/L (17-59); African American GFR (CKD) >90 (>60 ml/min/1.73 sqM); Albumin 3.9 g/dL (3.5-5.0); Alkaline Phosphatase 74 U/L (38-126); Anion Gap 4 mmol/L; Blood Urea Nitrogen 19 mg/dL (9-20); Calcium 9.1 mg/dL (8.4-10.2); Carbon Dioxide 31 mmol/L (22-30); Chloride 104 mmol/L (98-107); Glucose 93 mg/dL (74-99); Non-African American GFR(CKD) 79 (>60 ml/min/1.73 sqM); Potassium 4.7 mmol/L (3.5-5.1); Sodium 139 mmol/L (137-145); Total Bilirubin 0.7 mg/dL (0.2-1.3); Total Protein 6.2 g/dL (6.3-8.2)
[2020-12-26 07:46] LABS: HCT 43.6 % (39.0-53.0); HGB 14.5 gm/dL (13.0-17.5); MCH 31.8 pg (25.0-35.0); MCHC 33.2 g/dL (31.0-37.0); MCV 95.8 fL (80.0-100.0); Mean Platelet Volume 7.8; Platelet Count 233 k/uL (150-450); RBC 4.56 m/uL (4.30-5.90); RDW 14.2 % (11.5-15.5); WBC 26.7 k/uL (3.8-10.6)
[2020-12-26] MEDS: NICOTINE 14MG/24HR PATCH TRANSDERM SCH (08:55)
[2020-12-26] MEDS: risperiDONE 2 MG TAB PO SCH ×2 (08:56→20:05)
--- NOTE | 2020-12-26 09:00 | P.HP ---
Psychiatric H&P - . H&P Date: 12/26/20 History & Physical: Allergies Allergy/AdvReac Type Severity Reaction Status Date / Time Sulfa (Sulfonamide Allergy Rash/Hives Verified 12/25/20 16:25 Antibiotics) Vital Signs Temp 97.7 F 12/26/20 03:28 Pulse 80 12/26/20 03:28 Resp 16 12/26/20 03:28 BP 159/89 12/26/20 03:28 Pulse Ox 95 12/25/20 23:41 Intake & Output 12/25/20 12/26/20 12/26/20 18:59 06:59 18:59 Weight 108.862 kg 91.6 kg Laboratory Last Values WBC 26.7 k/uL (3.8-10.6) H 12/26/20 06:44 RBC 4.56 m/uL (4.30-5.90) 12/26/20 06:44 Hgb 14.5 gm/dL (13.0-17.5) 12/26/20 06:44 Hct 43.6 % (39.0-53.0) 12/26/20 06:44 MCV 95.8 fL (80.0-100.0) 12/26/20 06:44 MCH 31.8 pg (25.0-35.0) 12/26/20 06:44 MCHC 33.2 g/dL (31.0-37.0) 12/26/20 06:44 RDW 14.2 % (11.5-15.5) 12/26/20 06:44 Plt Count 233 k/uL (150-450) 12/26/20 06:44 MPV 7.8 12/26/20 06:44 Sodium 139 mmol/L (137-145) 12/26/20 06:44 Potassium 4.7 mmol/L (3.5-5.1) 12/26/20 06:44 Chloride 104 mmol/L (98-107) 12/26/20 06:44 Carbon Dioxide 31 mmol/L (22-30) H 12/26/20 06:44 Anion Gap 4 mmol/L 12/26/20 06:44 BUN 19 mg/dL (9-20) 12/26/20 06:44 Creatinine 1.01 mg/dL (0.66-1.25) 12/26/20 06:44 Est GFR (CKD-EPI)AfAm >90 (>60 ml/min/1.73 sqM) 12/26/20 06:44 Est GFR (CKD-EPI)NonAf 79 (>60 ml/min/1.73 sqM) 12/26/20 06:44 Glucose 93 mg/dL (74-99) 12/26/20 06:44 Calcium 9.1 mg/dL (8.4-10.2) 12/26/20 06:44 Total Bilirubin 0.7 mg/dL (0.2-1.3) 12/26/20 06:44 AST 25 U/L (17-59) 12/26/20 06:44 ALT 18 U/L (4-49) 12/26/20 06:44 Alkaline Phosphatase 74 U/L (38-126) 12/26/20 06:44 Total Protein 6.2 g/dL (6.3-8.2) L 12/26/20 06:44 Albumin 3.9 g/dL (3.5-5.0) 12/26/20 06:44 TSH 1.010 mIU/L (0.465-4.680) 12/26/20 06:44 Urine Opiates Screen Not Detected (NotDetected) 12/25/20 13:58 Ur Oxycodone Screen Not Detected (NotDetected) 12/25/20 13:58 Urine Methadone Screen Not Detected (NotDetected) 12/25/20 13:58 Ur Propoxyphene Screen Not Detected (NotDetected) 12/25/20 13:58 Ur Barbiturates Screen Not Detected (NotDetected) 12/25/20 13:58 U Tricyclic Antidepress Not Detected (NotDetected) 12/25/20 13:58 Ur Phencyclidine Scrn Not Detected (NotDetected) 12/25/20 13:58 Ur Amphetamines Screen Not Detected (NotDetected) 12/25/20 13:58 U Methamphetamines Scrn Not Detected (NotDetected) 12/25/20 13:58 U Benzodiazepines Scrn Not Detected (NotDetected) 12/25/20 13:58 Urine Cocaine Screen Not Detected (NotDetected) 12/25/20 13:58 U Marijuana (THC) Screen Not Detected (NotDetected) 12/25/20 13:58 Coronavirus (PCR) Not Detected (Not Detectd) 12/25/20 16:35 12/26/20 08:51 IDENTIFYING DATA: Patient is a 65-year-old male who currently lives at a room and board has no kids and is single and is [facility]. HPI: Patient presented to the hospital and was brought in by correctional officers this patient was apparently "unaware of where he is, inmate is disheveled and unkempt and appears to be responding to internal stimuli" according to petition filled out by health care social worker. Patient has a history of schizophrenia and was on Risperdal in the past. He currently follows up at [facility]. Patient was admitted involuntarily on a petition and certificate. Patient was observed to be looking around the room while speaking to radio script writer. He was attempting to cooperate with the questions. He appeared to be disheveled in appearance. He spoke with a soft tone of voice. He was fairly vague about the reasons why he was in [facility] and whether head operator picked him up. He was also claiming he did not know why they brought him into the hospital. He was asked about a final felony charge pending and patient states that he did not know why he is being charged with this. He claims that he is on a court order and has a guardian. He claims that he has been taking his medications. He claims that his sleep has been fair and her appetite has been fair. His UDS was negative. He is not endorsing any paranoia today. He claims that his mood is "fine" and is denying any anxiety today. Patient denies any suicidal or homicidal ideations intent or plan. At this time patient denies any auditory or visual hallucinations. Patient denies any flight of ideas racing thoughts and increased in goal directed behavior. Patient admits to using no recreational drugs however does use cigarettes daily. PAST PSYCHIATRIC HISTORY: Patient states that is history of schizophrenia. He claims that he is previously on Risperdal and Prozac in the past. Had several psychiatric hospitalizations in the past and his last admission was in June 2016. Aims that he follows up with [facility] as an outpatient. Patient denies any history of suicide attempts in the past. Past Medical History: COPD, Diabetes Mellitus, Hypertension Additional Past Medical History / Comment(s): Previous history of CVA, schizophrenia, type 2 diabetes mellitus, history of SIADH with severe hyponatremia, history of mediastinal lymphadenopathy, history of pansinusitis with possible mastoiditis on a CAT scan of the brain and MRI of the brain, history of lacunar infarct with some right-sided facial weakness. ALLERGIES: as per EMR CHEMICAL DEPENDENCY HISTORY: as per HPI FAMILY PSYCHIATRIC/SUBSTANCE USE HISTORY: Claims that his brother has schizophrenia. SOCIAL HISTORY: Patient was born and raised in [facility]. He states that he completed high school. He claims that he has served time in detention before however did not know why. He currently has felony charges pending against him. He does not have any kids is single and lives in a room and board. MENTAL STATUS EXAM: General Appearance: Patient appears to be overweight stated age is alert, attempts to cooperate. Gazing around the room. Patient appears to have poor hygiene and grooming. Disheveled appearance Behavior: Patient is seated without any agitated behavior. Speech: Patient's speech is fluent and nonpressured. [place] Mood/Affect: Patient reports their mood is fair, affect is congruent and constricted. Suicidality/Homicidality: Patient denies having any homicidal ideation intent or plan. Denies any suicidal ideations intent or plan Perceptions: Patient denies any visual hallucinations and denies any auditory hallucinations Though content/process: [place], poverty of content. Vague. Part logical Memory and concentration: AOX3, grossly intact for the purposes of this session. Can spell "WORLD" backwards Judgment and insight: poor STRENGTHS/WEAKNESSES: strength is that patient is resilient. Weakness is that patient has poor judgment and is impulsive INTELLECT: average IMPRESSIONS: Schizophrenia Nicotine dependence legal problems PLAN: -Patient is admitted under involuntary status to [facility] for stabilization of psychiatric symptoms and safety. Patient has signed medication consent and is placed in patient's chart. A second certification was completed and along with petition will be filed for court. -Medications : Will start patient on Risperdal 2 mg twice a day as his home dose. Trazodone 50 mg daily at bedtime when necessary for insomnia. -Ativan and Haldol PRN for agitation/aggression -Patient was informed of the risks, benefits and side effects of the medication and patient verbally consented to taking the medications. Patient signed med consent form and was placed in chart. -Internal Medicine consult to perform medical evaluation and physical. -NRT - nicotine patch -SW on board for discharge planning. Encourage patient to participate in groups to work on coping skills. Will await deferral and court date. Patient will be discharged back to [facility] once he is psychiatrically improved
[2020-12-26] MEDS ORDERED: ALBUTEROL INHALER 60 PUFF/8 GM INHALER (MHU) INHALATION PRN (13:39)
[2020-12-26 13:47] LABS: Lymphocytes # (M) 18.69 k/uL (1.0-4.8); Monocytes # (M) 1.34 k/uL (0-1.0); Neutrophils # (M) 6.68 k/uL (1.3-7.7); Neutrophils % (M) 25 %; Nucleated Red Blood Cells 0 /100 WBC (0-0); Total Cells Counted 100
[2020-12-26] MEDS: ACETAMINOPHEN TAB 325 MG TAB PO PRN (20:06)
[2020-12-26 21:02] LABS: Chol/HDL Ratio 4.67 Ratio; LDL Cholesterol,Calculated 104.1 mg/dL (0.0-131.0); VLDL Calculation 19.26 mg/dL (5.00-40.00)
--- NOTE | 2020-12-26 21:35 | P.MDCNMH ---
History of Present Illness H&P Date: 12/26/20 Chief Complaint: Petition for psychiatric evaluation. Patient is a 65-year-old male with a known history of hypertension, diabetes type 2 diet-controlled, hypertension, history of CVA with lacunar infarct/right effusion weakness, history of SIADH and schizophrenia was brought under petition for psychiatric evaluation. Patient was taken to local shelter on a felony charge and was having hallucinations and seemed to be responding to internal stimuli. He was brought in for psychiatric evaluation. Currently patient is awake alert and oriented x2-3. Patient does have history of schizophrenia and has not been taking his medications. Currently patient states that he was having shortness of breath with walking but otherwise able to ambulate in the hallway. No complaints of chest pain. Denied any nausea vomiting abdominal pain or diarrhea. Patient has been afebrile. On admission heart rate 102 respiration 20 blood pressure 140/101 and pulse ox 95% on room air. Laboratory data showed WBC 26.7 hemoglobin 14.5, platelets 233 sodium 139, potassium 4.7 chloride 104 bicarb 31 BUN 19 and creatinine 1.01 A1c 5.4 liver enzymes are not elevated TSH 1.01 UDS negative, coronavirus PCR not detected. Review of Systems Constitutional: Patient denies any fever or chills . No generalized weakness or weight loss. Abdomen: Patient denied nausea vomiting and diarrhea and abdominal pain. Cardiovascular: Patient denies any chest pain or short of breath no palpitations. Respiratory: patient denied any cough or sputum production. mild shortness of breath Neurologic: Patient denied any numbness or tingling headache. Complete review of systems could not be obtained from the patient. 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 History of Any Multi-Drug Resistant Organisms: None Reported Past Surgical History: Orthopedic Surgery Additional Past Surgical History / Comment(s): sinus sx Past Anesthesia/Blood Transfusion Reactions: No Reported Reaction Past Psychological History: Schizophrenia Smoking Status: Never smoker Past Alcohol Use History: None Reported Past Drug Use History: Cocaine Medications and Allergies Home Medications Medication Instructions Recorded Confirmed Type No Known Home Medications 12/25/20 12/25/20 History Allergies Allergy/AdvReac Type Severity Reaction Status Date / Time Sulfa (Sulfonamide Allergy Rash/Hives Verified 12/25/20 16:25 Antibiotics) Physical Exam Vitals: Vital Signs Temp Pulse Pulse Pulse Resp BP BP 12/26/20 08:57 16 12/26/20 03:28 97.7 F 80 16 159/89 12/25/20 23:41 98.7 F 88 22 132/86 12/25/20 20:29 98.6 F 106 H 20 171/103 Pulse Ox 12/26/20 08:57 96 12/26/20 03:28 12/25/20 23:41 95 12/25/20 20:29 96 Intake and Output 12/25/20 12/26/20 12/26/20 22:59 06:59 14:59 Other: Weight 91.6 kg PHYSICAL EXAMINATION: Patient is lying in the bed comfortably, no acute distress, awake alert and oriented.. HEENT: Normocephalic. Neck is supple. Pupils reactive. Nostrils clear. Oral cavity is moist. Neck reveals no JVD, carotid bruits, or thyromegaly. CHEST EXAMINATION: Trachea is central. Symmetrical expansion. Mild expiratory wheeze and scattered rhonchi. Nonlabored breathing. CARDIAC: Normal S1, S2 with no gallops. No murmurs ABDOMEN: Soft. Bowel sounds normal. No organomegaly. No abdominal bruits. Extremities: reveal no edema. No clubbing or cyanosis Neurologically awake, alert, oriented x2 with well-coordinated movements. No gross focal deficits noted Skin: No rash or skin lesions. Psychiatric: Cooperative. Nonsuicidal Musculoskeletal: No joint swelling or deformity. Normal range of motion. Cranial Nerve Examination - Cranial Nerves Cranial Nerve I- Olfactory: Intact Cranial Nerve II- Optic: Intact Cranial Nerve III- Oculomotor: Intact Cranial Nerve IV- Trochlear: Intact Cranial Nerve V- Trigeminal: Intact Cranial Nerve - Abducens: Intact Cranial Nerve VII- Facial: Intact Cranial Nerve VIII- Auditory: Intact Cranial Nerve IX- Glossopharyngeal: Intact Cranial Nerve X- Vagus: Intact Cranial Nerve XI- Accessory: Intact Cranial Nerve XII- Hypoglossal: Intact Results CBC & Chem 7: 12/26/20 06:44 12/26/20 06:44 Labs: Abnormal Lab Results - Last 24 Hours (Table) 12/26/20 12/26/20 Range/Units 06:44 06:44 WBC 26.7 H (3.8-10.6) k/uL Carbon Dioxide 31 H (22-30) mmol/L Total Protein 6.2 L (6.3-8.2) g/dL Assessment and Plan Assessment: Acute psychosis and auditory hallucinations. Leukocytosis likely reactive. Rule out infection. History of schizophrenia COPD not in exacerbation. Hypertension diabetes type 2 diet controlled history of CVA/lacunar infarct with right-sided facial weakness. DVT prophylaxis with early ambulation plan: Patient will be continued on albuterol inhaler 2 puffs 4 times daily as needed for shortness of breath. Follow-up urinalysis. Continue with your psychiatric management and plan. Further recommendations based on the clinical course. Follow-up CBC and CMP tomorrow especially to monitor for resolution of bri kocytosis.. Thank you for your consult.
[2020-12-27 06:03] VITALS: RESP 18
[2020-12-27 08:09] LABS: HCT 44.6 % (39.0-53.0); HGB 14.1 gm/dL (13.0-17.5); MCH 31.5 pg (25.0-35.0); MCHC 31.6 g/dL (31.0-37.0); MCV 99.7 fL (80.0-100.0); Mean Platelet Volume 7.4; Platelet Count 211 k/uL (150-450); RBC 4.47 m/uL (4.30-5.90); RDW 13.7 % (11.5-15.5); WBC 24.6 k/uL (3.8-10.6)
[2020-12-27 08:27] LABS: ALT 21 U/L (4-49); AST 23 U/L (17-59); African American GFR (CKD) >90 (>60 ml/min/1.73 sqM); Albumin 3.8 g/dL (3.5-5.0); Alkaline Phosphatase 68 U/L (38-126); Anion Gap 5 mmol/L; Blood Urea Nitrogen 18 mg/dL (9-20); Calcium 9.1 mg/dL (8.4-10.2); Carbon Dioxide 30 mmol/L (22-30); Chloride 103 mmol/L (98-107); Glucose 105 mg/dL (74-99); Non-African American GFR(CKD) >90 (>60 ml/min/1.73 sqM); Sodium 138 mmol/L (137-145); Total Bilirubin 0.4 mg/dL (0.2-1.3); Total Protein 6.1 g/dL (6.3-8.2)
[2020-12-27] MEDS: risperiDONE 2 MG TAB PO SCH ×2 (08:42→20:02)
[2020-12-27] MEDS: NICOTINE 14MG/24HR PATCH TRANSDERM SCH (08:43)
[2020-12-27] MEDS: ACETAMINOPHEN TAB 325 MG TAB PO PRN ×2 (09:02→20:02)
--- NOTE | 2020-12-27 10:29 | P.PN ---
Progress Note - Text Progress Note Date: 12/27/20 Interval History: Patient was seen speaking to another patient in the lounge and was directable and agreeable to speak with technical report writer in the office. Patient appears to have very mild improvement in his hygiene and grooming today. He was rambling at times however was more organized in his thought process. He did not appear to be responding to internal stimuli today. He claims that he needed to speak with his straightening machine operator and spoke about Infusion Pharmacist David ordering him. He appeared to me more directable during conversation. He was tangential/circumstantial. He claims that he is able to sleep fairly last night. He asked several questions about his medications and how he was not taking it before coming into the hospital. At this time patient denies any suicidal or homical ideations, intent or plan. Patient denies any auditory, visual hallucinations and denies any paranoia. Patient denies any side effects from the medications and has been compliant with meds. Mental Status Exam: General Appearance: Patient appears to be overweight stated age is alert, attempts to cooperate. not gazing around room today. Patient appears to have mildly improving hygiene and grooming. Disheveled appearance Behavior: Patient is seated without any agitated behavior. Speech: Patient's speech is fluent and nonpressured. rambles at times Mood/Affect: Patient reports their mood is fair, affect is congruent and constricted. Suicidality/Homicidality: Patient denies having any homicidal ideation intent or plan. Denies any suicidal ideations intent or plan Perceptions: Patient denies any visual hallucinations and denies any auditory hallucinations Though content/process: [place], improving today. More logical today and more organized. rambles at times. Memory and concentration: AOX3, grossly intact for the purposes of this session. Judgment and insight: chronically poor, improving mildly Assessment Schizophrenia Nicotine dependence legal problems Plan: -Patient continues to meet criteria for inpatient psychiatric admission for symptom stabilization and safety. Patient has not signed adult voluntary form and was placed in patient's chart. Patient did sign medication consent form. -Medications: Continue with Risperdal 2 mg twice a day for psychosis. Trazodone 50 mg daily at bedtime when necessary for insomnia. -When necessary Ativan and Haldol for agitation/aggression. -NRT - nicotine patch -SW on board for discharge planning. Encouraged the patient to participate in milieu. Currently awaiting deferral with assistant district attorney and court date. Patient improving psychiatrically and will likely be discharged back to senior care in one to 2 days once he defers with his assistant district attorney
[2020-12-27 14:07] LABS: Lymphocytes # (M) 15.01 k/uL (1.0-4.8); Monocytes # (M) 1.48 k/uL (0-1.0); Neutrophils # (M) 8.12 k/uL (1.3-7.7); Neutrophils % (M) 33 %; Nucleated Red Blood Cells 0 /100 WBC (0-0); Total Cells Counted 100
[2020-12-28] MEDS: LORazepam 1 MG TAB PO PRN ×2 (02:43→10:03)
[2020-12-28 06:35] VITALS: TEMP 97.4
[2020-12-28 07:46] LABS: Glucose,Whole Blood 93 mg/dL (75-99)
[2020-12-28] MEDS: risperiDONE 2 MG TAB PO SCH (08:19)
[2020-12-28] MEDS: NICOTINE 14MG/24HR PATCH TRANSDERM SCH (08:19)
[2020-12-28] MEDS ORDERED: amLODIPine 5 MG TAB PO SCH (09:30)
[2020-12-28 10:02] VITALS: BP 133/89; PULSE 97
--- NOTE | 2020-12-28 11:26 | P.DS ---
Providers Date of admission: 12/25/20 19:26 Expected date of discharge: 12/28/20 Attending physician: Quan Perales MD Consults: 12/25/20 20:22 Consult Physician Routine Consulting Provider: Stacy Pro Consult Reason/Comments: H&P and medical Do you want consulting provider notified?: Yes Primary care physician: Jude Serrano - Discharge Diagnosis(es) (1) Schizophrenia Current Visit: Yes Status: Acute Priority: High (2) Nicotine dependence Current Visit: Yes Status: Acute Priority: Low (3) Legal problem Current Visit: Yes Status: Acute Priority: Medium Hospital Course: Admission HPI: Admission note was completed by radio news writer "Patient is a 65-year-old male who currently lives at a room and board has no kids and is single and is currently coming from long term. Patient presented to the hospital and was brought in by correctional officers this patient was apparently "unaware of where he is, inmate is disheveled and unkempt and appears to be responding to internal stimuli" according to petition filled out by psychiatric social worker supervisor. Patient has a history of schizophrenia and was on Risperdal in the past. He currently follows up at [facility]. Patient was admitted involuntarily on a petition and certificate. Patient was observed to be looking around the room while speaking to radio news writer. He was attempting to cooperate with the questions. He appeared to be disheveled in appearance. He spoke with a soft tone of voice. He was fairly vague about the reasons why he was in long term and whether farmworker rice picked him up. He was also claiming he did not know why they brought him into the hospital. He was asked about a final felony charge pending and patient states that he did not know why he is being charged with this. He claims that he is on a court order and has a guardian. He claims that he has been taking his medications. He claims that his sleep has been fair and her appetite has been fair. His UDS was negative. He is not endorsing any paranoia today. He claims that his mood is "fine" and is denying any anxiety today. Patient denies any suicidal or homicidal ideations intent or plan. At this time patient denies any auditory or visual hallucinations. Patient denies any flight of ideas racing thoughts and increased in goal directed behavior. Patient admits to using no recreational drugs however does use cigarettes daily." Hospital course: Upon admission to the unit patient was initially bizarre and psychotic. Patient was however admitted involuntarily and a second certificate was completed and faxed to the courts. Patient ended up deferring with his calender feeder and agreeing to treatment on day of discharge. Patient got along well with other patients on the unit and followed unit protocol. Patient was compliant with the medications and denied any side effects throughout hospital course. Patient was started on Risperdal 2 mg twice a day for psychosis.. Patient spoke of his stressors and engaged in therapy both group and individual. Patient was also seen by medical team for history and physical exam. Vision initially showed an elevation in his white blood cell count however it was rechecked which showed improvement. Throughout the course of the hospitalization patient gradually improved with regards to mood, psychosis, sleep and patient returned back to his baseline level of functioning. On the day of discharge patient denied any suicidal or homicidal ideations intent or plan denied any auditory or visual hallucinations. The patient denied any access to guns or weapons. Patient denied any paranoia and did not endorse any delusions. Patient does not have a significant history of substance abuse however was counseled on abstaining from all substances including alcohol and marijuana. Patient was also counseled on the medications and need for regular compliance and was encouraged to follow-up with their outpatient appointment for mental health and also for primary care. Patient will be discharged today back to long term as he is currently facing pending charges. Mental status exam: General Appearance: Patient appears to be overweight, stated age is alert, pleasant, attempts to be cooperative. Patient is in no acute distress and has improved hygiene and grooming Behavior: Patient is calmly seated without any agitated behavior. Speech: Patient's speech is fluent and nonpressured. Rambles at times Mood/Affect: Patient reports their mood is "better", affect is congruent Suicidality/Homicidality: Patient denies having any suicidal or homicidal ideation intent or plan. Perceptions: Patient denies any auditory or visual hallucinations. Though content/process: There is no evidence of any delusional thought content and thought process is linear and goal-directed. Rambles at times. Memory and concentration: AOX3, grossly intact for the purposes of this session. Can spell "WORLD" backwards correctly. Judgment and insight: chronically poor, however has improved with guarded prognosis Impression: Schizophrenia Nicotine dependence Plan: -Continue with discharge today as patient has improved and stabilized psychiatrically and is not currently an imminent threat to himself and/or others. -Continue medications: Risperdal 2 mg twice a day for psychosis. Patient will be given a 30 day supply of his medications. -Patient was counseled on the need for medication compliance and appropriate follow-up at mental health and also primary care for medical issues. Patient verbalized understanding and agreed. -Social work to help arrange for patient's discharge today back to long term as he is currently facing charges. Social work also to arrange for patients follow up appointments with [facility] for psychiatric care along with follow up with primary care provider. -Patient counseled on abstaining from recreational drugs and marijuana and alcohol. Was informed/educated on the adverse effects on their physical and mental health. Patient verbally agreed and understood. -Patient was instructed to return to the hospital or seek immediate medical care if their psychiatric or medical symptoms do worsen or reoccur. Allergies Allergy/AdvReac Type Severity Reaction Status Date / Time Sulfa (Sulfonamide Allergy Rash/Hives Verified 12/25/20 16:25 Antibiotics) Laboratory Results WBC 24.6 k/uL (3.8-10.6) H 12/27/20 07:41 RBC 4.47 m/uL (4.30-5.90) 12/27/20 07:41 Hgb 14.1 gm/dL (13.0-17.5) 12/27/20 07:41 Hct 44.6 % (39.0-53.0) 12/27/20 07:41 MCV 99.7 fL (80.0-100.0) 12/27/20 07:41 MCH 31.5 pg (25.0-35.0) 12/27/20 07:41 MCHC 31.6 g/dL (31.0-37.0) 12/27/20 07:41 RDW 13.7 % (11.5-15.5) 12/27/20 07:41 Plt Count 211 k/uL (150-450) 12/27/20 07:41 MPV 7.4 12/27/20 07:41 Neutrophils % (Manual) 33 % 12/27/20 07:41 Lymphocytes % (Manual) 61 % 12/27/20 07:41 Monocytes % (Manual) 6 % 12/27/20 07:41 Neutrophils # (Manual) 8.12 k/uL (1.3-7.7) H 12/27/20 07:41 Lymphocytes # (Manual) 15.01 k/uL (1.0-4.8) H 12/27/20 07:41 Monocytes # (Manual) 1.48 k/uL (0-1.0) H 12/27/20 07:41 Nucleated RBCs 0 /100 WBC (0-0) 12/27/20 07:41 Manual Slide Review Performed 12/27/20 07:41 RBC Morphology Normal 12/27/20 07:41 Sodium 138 mmol/L (137-145) 12/27/20 07:41 Potassium 5.0 mmol/L (3.5-5.1) 12/27/20 07:41 Chloride 103 mmol/L (98-107) 12/27/20 07:41 Carbon Dioxide 30 mmol/L (22-30) 12/27/20 07:41 Anion Gap 5 mmol/L 12/27/20 07:41 BUN 18 mg/dL (9-20) 12/27/20 07:41 Creatinine 0.88 mg/dL (0.66-1.25) 12/27/20 07:41 Est GFR (CKD-EPI)AfAm >90 (>60 ml/min/1.73 sqM) 12/27/20 07:41 Est GFR (CKD-EPI)NonAf >90 (>60 ml/min/1.73 sqM) 12/27/20 07:41 Glucose 105 mg/dL (74-99) H 12/27/20 07:41 POC Glucose (mg/dL) 93 mg/dL (75-99) 12/28/20 07:44 POC Glu Fountain Helper ID Fernando Henderson 12/28/20 07:[address] Glu mg/dL 108 12/26/20 06:44 Hemoglobin A1c 5.4 % (4.0-6.0) 12/26/20 06:44 Calcium 9.1 mg/dL (8.4-10.2) 12/27/20 07:41 Total Bilirubin 0.4 mg/dL (0.2-1.3) 12/27/20 07:41 AST 23 U/L (17-59) 12/27/20 07:41 ALT 21 U/L (4-49) 12/27/20 07:41 Alkaline Phosphatase 68 U/L (38-126) 12/27/20 07:41 Total Protein 6.1 g/dL (6.3-8.2) L 12/27/20 07:41 Albumin 3.8 g/dL (3.5-5.0) 12/27/20 07:41 Triglycerides 96.30 mg/dL (0.00-149.00) 12/26/20 06:44 Cholesterol 157.00 mg/dL (0.00-200.00) 12/26/20 06:44 LDL Cholesterol, Calc 104.1 mg/dL (0.0-131.0) 12/26/20 06:44 VLDL Cholesterol, Calc 19.26 mg/dL (5.00-40.00) 12/26/20 06:44 HDL Cholesterol 33.60 mg/dL (40.00-60.00) L 12/26/20 06:44 Cholesterol/HDL Ratio 4.67 Ratio 12/26/20 06:44 TSH 1.010 mIU/L (0.465-4.680) 12/26/20 06:44 Urine Opiates Screen Not Detected (NotDetected) 12/25/20 13:58 Ur Oxycodone Screen Not Detected (NotDetected) 12/25/20 13:58 Urine Methadone Screen Not Detected (NotDetected) 12/25/20 13:58 Ur Propoxyphene Screen Not Detected (NotDetected) 12/25/20 13:58 Ur Barbiturates Screen Not Detected (NotDetected) 12/25/20 13:58 U Tricyclic Antidepress Not Detected (NotDetected) 12/25/20 13:58 Ur Phencyclidine Scrn Not Detected (NotDetected) 12/25/20 13:58 Ur Amphetamines Screen Not Detected (NotDetected) 12/25/20 13:58 U Methamphetamines Scrn Not Detected (NotDetected) 12/25/20 13:58 U Benzodiazepines Scrn Not Detected (NotDetected) 12/25/20 13:58 Urine Cocaine Screen Not Detected (NotDetected) 12/25/20 13:58 U Marijuana (THC) Screen Not Detected (NotDetected) 12/25/20 13:58 Coronavirus (PCR) Not Detected (Not Detectd) 12/25/20 16:35 Vital Signs Temp 97.4 F L 12/28/20 06:34 Pulse 97 12/28/20 10:01 Resp 18 12/28/20 06:34 BP 133/89 12/28/20 10:01 Pulse Ox 95 12/28/20 06:34 Patient Condition at Discharge: Stable Plan - Discharge Summary New Discharge Prescriptions: New Nicotine 14Mg/24Hr Patch [Habitrol] 1 patch TRANSDERM DAILY 14 Days patch amLODIPine [Norvasc] 5 mg PO DAILY 30 Days tab risperiDONE [RisperDAL] 2 mg PO BID 30 Days tab Acetaminophen Tab [Tylenol] 650 mg PO Q6HR PRN 30 Days tab PRN Reason: Pain/Discomfort Discharge Medication List Acetaminophen Tab [Tylenol] 650 mg PO Q6HR PRN 30 Days tab 12/28/20 [Rx] Nicotine 14Mg/24Hr Patch [Habitrol] 1 patch TRANSDERM DAILY 14 Days patch 12/28/20 [Rx] amLODIPine [Norvasc] 5 mg PO DAILY 30 Days tab 12/28/20 [Rx] risperiDONE [RisperDAL] 2 mg PO BID 30 Days tab 12/28/20 [Rx] Follow up Appointment(s)/Referral(s): [facility] [Outside] - 1 Week (Pt will follow-up with [facility] long term services upon arrival to long term) None,Stated [REFERRING] - 1-2 days Discharge Disposition: DC/TRANSFER COURT/LAW
== END 2020-12-28 12:38 | DRG 885 ==
LOC: EC 13:04 → 3MHU 19:26
PROVIDERS: ADMIT Psychiatry & Neurology Psychiatry; ATTEND Psychiatry & Neurology Psychiatry
DX: F20.9 Schizophrenia, unspecified (principal); R45.851 Suicidal ideations; E22.2 Syndrome of inappropriate secretion of antidiuretic hormone; F17.210 Nicotine dependence, cigarettes, uncomplicated; Z20.822 Contact with and (suspected) exposure to COVID-19; E11.9 Type 2 diabetes mellitus without complications; I10 Essential (primary) hypertension; J44.9 Chronic obstructive pulmonary disease, unspecified; Z65.3 Problems related to other legal circumstances; Z79.899 Other long term (current) drug therapy; Z81.8 Family history of other mental and behavioral disorders; Z86.73 Personal history of transient ischemic attack (TIA), and cerebral infarction without residual deficits; J32.4 Chronic pansinusitis
CPT/HCPCS: 80053; 80061; 80306; 82075; 83036; 84443; 85025; 87635; 99285

== ENCOUNTER 2021-03-01 10:32 | Emergency (ER) | payer MEDICARE, OTHER ==
[2021-03-01 10:46] VITALS: BP 162/103; PULSE 75; RESP 18; TEMP 98.6
[2021-03-01 12:19] LABS: Amphetamine Screen,Urine Not Detected (NotDetected); Barbiturate Screen,Urine Not Detected (NotDetected); Benzodiazepines Screen,Urine Not Detected (NotDetected); Cocaine Screen,Urine Not Detected (NotDetected); Methadone Screen, Urine Not Detected (NotDetected); Opiate Screen,Urine Not Detected (NotDetected); Oxycodone Screen, Urine Not Detected (NotDetected); Phencyclidine Screen,Urine Not Detected (NotDetected); Tricyclic Antidepressant,Urine Not Detected (NotDetected); Urn Cannabinoid Scrn Not Detected (NotDetected)
--- NOTE | 2021-03-01 13:14 | ED ---
Psych HPI - General Chief Complaint: Psychiatric Symptoms Stated Complaint: Mental Health Time Seen by Provider: 03/01/21 10:51 Source: patient, police, EMS, RN notes reviewed Mode of arrival: EMS Limitations: no limitations - History of Present Illness Initial Comments: This a 65-year-old male presents emergency Department with police [facility]. Patient is petition for psychiatric treatment, he supposedly is acutely psychotic has not been taking his medications refusing take medication. Patient was sent in for possible injection type medication patient does not offer much information this time. - Related Data Previous Rx's Medication Instructions Recorded risperiDONE [RisperDAL] 2 mg PO BID 30 Days tab 12/28/20 Allergies Allergy/AdvReac Type Severity Reaction Status Date / Time Sulfa (Sulfonamide Allergy Rash/Hives Verified 03/01/21 11:19 Antibiotics) Review of Systems ROS Statement: Those systems with pertinent positive or pertinent negative responses have been documented in the HPI. ROS Other: All systems not noted in ROS Statement are negative. 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 History of Any Multi-Drug Resistant Organisms: None Reported Past Surgical History: Orthopedic Surgery Additional Past Surgical History / Comment(s): sinus sx Past Anesthesia/Blood Transfusion Reactions: No Reported Reaction Past Psychological History: Schizophrenia Smoking Status: Never smoker Past Alcohol Use History: None Reported Past Drug Use History: Cocaine General Exam Limitations: no limitations General appearance: alert, in no apparent distress Head exam: Present: atraumatic, normocephalic, normal inspection Neck exam: Present: normal inspection, full ROM. Absent: tenderness, meningismus, lymphadenopathy Respiratory exam: Present: normal lung sounds bilaterally. Absent: respiratory distress, wheezes, rales, rhonchi, stridor Cardiovascular Exam: Present: regular rate, normal rhythm, normal heart sounds. Absent: systolic murmur, diastolic murmur, rubs, gallop, clicks Neurological exam: Present: alert Psychiatric exam: Present: flat affect Course Vital Signs 03/01/21 10:43 Temperature 98.6 F Pulse Rate 75 Respiratory 18 Rate Blood Pressure 162/103 O2 Sat by Pulse 99 Oximetry Medical Decision Making - Medical Decision Making Patient will receive invega as ordered by psychiatrist patient will be [facility] with [facility] follow-up. - Lab Data Lab Results 03/01/21 03/01/21 Range/Units 11:06 11:27 Urine Opiates Screen Not Detected (NotDetected) Ur Oxycodone Screen Not Detected (NotDetected) Urine Methadone Screen Not Detected (NotDetected) Ur Propoxyphene Screen Not Detected (NotDetected) Ur Barbiturates Screen Not Detected (NotDetected) U Tricyclic Antidepress Not Detected (NotDetected) Ur Phencyclidine Scrn Not Detected (NotDetected) Ur Amphetamines Screen Not Detected (NotDetected) U Methamphetamines Scrn Not Detected (NotDetected) U Benzodiazepines Scrn Not Detected (NotDetected) Urine Cocaine Screen Not Detected (NotDetected) U Marijuana (THC) Screen Not Detected (NotDetected) Coronavirus (PCR) Not Detected (Not Detectd) Disposition Clinical Impression: Schizophrenia, Psychosis Disposition: HOME SELF-CARE Condition: Stable Additional Instructions: Please return to the Emergency Department if symptoms worsen or any other concerns. Is patient prescribed a controlled substance at d/c from ED?: No Referrals: None,Stated [Primary Care Provider] - 1-2 days Time of Disposition: 13:14
[2021-03-01] MEDS ORDERED: PALIPERIDONE IM 234 MG/1.5 ML SYG IM ONE (13:30)
[2021-03-01] MEDS ORDERED: PALIPERIDONE IM 156 MG/ML SYG IM ONE (13:30)
== END 2021-03-01 13:33 | disposition home or self-care (01) ==
LOC: EC 10:32
DX: F29 Unspecified psychosis not due to a substance or known physiological condition (principal); J44.9 Chronic obstructive pulmonary disease, unspecified; E11.9 Type 2 diabetes mellitus without complications; I10 Essential (primary) hypertension; Z86.73 Personal history of transient ischemic attack (TIA), and cerebral infarction without residual deficits; Z88.2 Allergy status to sulfonamides
CPT/HCPCS: 82075; 80306; 87635; 99285; 96372; J2426

== ENCOUNTER 2021-09-27 11:00 | Inpatient (IN) | payer MEDICARE, OTHER ==
[2021-09-27] MEDS ORDERED: IPRATROPIUM-ALBUTEROL 3 ML NEB INHALATION STA (11:16)
[2021-09-27] MEDS ORDERED: methylPREDNISolone SOD SUCCI 125 MG/2 ML VIAL IV STA (11:16)
--- NOTE | 2021-09-27 11:20 | ED ---
General Adult HPI - General Chief complaint: Shortness of Breath Stated complaint: SOB Time Seen by Provider: 09/27/21 11:05 Source: patient, EMS, RN notes reviewed, old records reviewed Mode of arrival: EMS Limitations: altered mental status - History of Present Illness Initial comments: According to EMS patient's guardian noted that he was a little bit congested yesterday but today he was much worse and he appear to be short of breath much more than he was yesterday so they called EMS to bring him into the emergency department. According to EMS on room air he was 88% pulse ox. Patient is not giving any further history he is able to nod yes or no for some very basic questions other than that he was not answering questions. There is no family or other caregiver with the patient said no further history can be obtained. - Related Data Home Medications Medication Instructions Recorded Confirmed Acetaminophen Tab [Tylenol] 650 mg PO BID 09/27/21 09/27/21 Cholecalciferol [Vitamin D3 (25 25 mcg PO DAILY 09/27/21 09/27/21 Mcg = 1000 Iu)] Ketoconazole 2% Cream [Nizoral 2%] 1 applic TOPICAL DIRECTED 09/27/21 09/27/21 Multivitamins, Thera [Multivitamin 1 tab PO DAILY 09/27/21 09/27/21 (formulary)] Paliperidone IM [Invega Sustenna] 234 mg IM Q28D 09/27/21 09/27/21 Allergies Allergy/AdvReac Type Severity Reaction Status Date / Time Sulfa (Sulfonamide Allergy Rash/Hives Verified 03/01/21 11:19 Antibiotics) Review of Systems ROS Statement: Those systems with pertinent positive or pertinent negative responses have been documented in the HPI. ROS Other: All systems not noted in ROS Statement are negative. 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 History of Any Multi-Drug Resistant Organisms: None Reported Past Surgical History: Orthopedic Surgery Additional Past Surgical History / Comment(s): sinus sx Past Anesthesia/Blood Transfusion Reactions: No Reported Reaction Past Psychological History: Schizophrenia Smoking Status: Never smoker Past Alcohol Use History: None Reported Past Drug Use History: Cocaine General Exam - General Exam Comments Initial Comments: GENERAL: Patient is well-developed and well-nourished. Patient is nontoxic and well- hydrated and is in no acute distress. ENT: Neck is soft and supple. No significant lymphadenopathy is noted. Oropharynx is clear. Moist mucous membranes. Neck has full range of motion without eliciting any pain. EYES: The sclera were anicteric and conjunctiva were pink and moist. Extraocular movements were intact and pupils were equal round and reactive to light. Eyelids were unremarkable. PULMONARY: Patient has diffuse rhonchi CARDIOVASCULAR: There is a regular rate and rhythm without any murmurs gallops or rubs. ABDOMEN: Soft and nontender with normal bowel sounds. SKIN: Skin is clear with no lesions or rashes and otherwise unremarkable. NEUROLOGIC: Patient is alert and oriented x3. Cranial nerves II through XII are grossly intact. Motor and sensory are also intact. Normal speech, volume and content. Symmetrical smile. MUSCULOSKELETAL: Normal extremities with adequate strength and full range of motion. No lower extremity swelling or edema. No calf tenderness. LYMPHATICS: No significant lymphadenopathy is noted PSYCHIATRIC: Normal psychiatric evaluation. Limitations: altered mental status Course Vital Signs 09/27/21 09/27/21 09/27/21 11:02 11:11 11:27 Temperature 98.4 F Pulse Rate 106 H 108 H Respiratory 26 H 26 H Rate Blood Pressure 157/131 O2 Sat by Pulse 99 Oximetry Fraction of Inspired Oxygen (FIO2) 09/27/21 09/27/21 09/27/21 11:57 12:00 12:36 Temperature Pulse Rate 95 90 Respiratory 18 27 H Rate Blood Pressure 105/78 106/74 O2 Sat by Pulse 91 L 90 L Oximetry Fraction of 30 Inspired Oxygen (FIO2) Medical Decision Making - Medical Decision Making EKG shows sinus tachycardia at 109 bpm [place] interval 262 QRS is 72 QT interval is 279 QTC is 343. Patient's EKG shows no ST segment elevation or depression CT of the brain shows no acute abnormality. Patient was placed on BiPAP because of his difficulty breathing and his elevated pCO2. Patient became more more obtunded more difficult to arouse. Chest x-ray shows no acute abnormality. Dr. Syed came down and saw the patient after I spoke with him and he wanted the patient admitted the ICU. - Lab Data Result diagrams: 09/27/21 11:03 09/27/21 11:03 Lab Results 09/27/21 09/27/21 09/27/21 Range/Units 11:03 11:03 11:03 WBC 88.8 H* (3.8-10.6) k/uL RBC 4.16 L (4.30-5.90) m/uL Hgb 13.4 (13.0-17.5) gm/dL Hct 39.9 (39.0-53.0) % MCV 96.0 (80.0-100.0) fL MCH 32.3 (25.0-35.0) pg MCHC 33.6 (31.0-37.0) g/dL RDW 13.8 (11.5-15.5) % Plt Count 251 (150-450) k/uL MPV 7.1 PT 10.6 (9.0-12.0) sec INR 1.0 (<1.2) APTT 24.9 (22.0-30.0) sec Sample Site ABG pH (7.35-7.45) ABG pCO2 (35-45) mmHg ABG pO2 (83-108) mmHg ABG HCO3 (21-25) mmol/L ABG Total CO2 (19-24) mmol/L ABG O2 Saturation (94-97) % ABG Base Excess mmol/L Luis Test FiO2 % Sodium 116 L* (137-145) mmol/L Potassium 5.1 (3.5-5.1) mmol/L Chloride 81 L (98-107) mmol/L Carbon Dioxide 34 H (22-30) mmol/L Anion Gap 1 mmol/L BUN 10 (9-20) mg/dL Creatinine 0.49 L (0.66-1.25) mg/dL Est GFR (CKD-EPI)AfAm >90 (>60 ml/min/1.73 sqM) Est GFR (CKD-EPI)NonAf >90 (>60 ml/min/1.73 sqM) Glucose 125 H (74-99) mg/dL Plasma Lactic Acid Abel (0.7-2.0) mmol/L Calcium 7.8 L (8.4-10.2) mg/dL Magnesium 1.9 (1.6-2.3) mg/dL Total Bilirubin 0.4 (0.2-1.3) mg/dL AST 19 (17-59) U/L ALT 15 (4-49) U/L Alkaline Phosphatase 97 (38-126) U/L Troponin I (0.000-0.034) ng/mL Total Protein 6.0 L (6.3-8.2) g/dL Albumin 3.8 (3.5-5.0) g/dL Coronavirus (PCR) (Not Detectd) 09/27/21 09/27/21 09/27/21 Range/Units 11:03 11:03 11:03 WBC (3.8-10.6) k/uL RBC (4.30-5.90) m/uL Hgb (13.0-17.5) gm/dL Hct (39.0-53.0) % MCV (80.0-100.0) fL MCH (25.0-35.0) pg MCHC (31.0-37.0) g/dL RDW (11.5-15.5) % Plt Count (150-450) k/uL MPV PT (9.0-12.0) sec INR (<1.2) APTT (22.0-30.0) sec Sample Site ABG pH (7.35-7.45) ABG pCO2 (35-45) mmHg ABG pO2 (83-108) mmHg ABG HCO3 (21-25) mmol/L ABG Total CO2 (19-24) mmol/L ABG O2 Saturation (94-97) % ABG Base Excess mmol/L Luis Test FiO2 % Sodium (137-145) mmol/L Potassium (3.5-5.1) mmol/L Chloride (98-107) mmol/L Carbon Dioxide (22-30) mmol/L Anion Gap mmol/L BUN (9-20) mg/dL Creatinine (0.66-1.25) mg/dL Est GFR (CKD-EPI)AfAm (>60 ml/min/1.73 sqM) Est GFR (CKD-EPI)NonAf (>60 ml/min/1.73 sqM) Glucose (74-99) mg/dL Plasma Lactic Acid Abel 0.6 L (0.7-2.0) mmol/L Calcium (8.4-10.2) mg/dL Magnesium (1.6-2.3) mg/dL Total Bilirubin (0.2-1.3) mg/dL AST (17-59) U/L ALT (4-49) U/L Alkaline Phosphatase (38-126) U/L Troponin I 0.014 (0.000-0.034) ng/mL Total Protein (6.3-8.2) g/dL Albumin (3.5-5.0) g/dL Coronavirus (PCR) Not Detected (Not Detectd) 09/27/21 Range/Units 11:45 WBC (3.8-10.6) k/uL RBC (4.30-5.90) m/uL Hgb (13.0-17.5) gm/dL Hct (39.0-53.0) % MCV (80.0-100.0) fL MCH (25.0-35.0) pg MCHC (31.0-37.0) g/dL RDW (11.5-15.5) % Plt Count (150-450) k/uL MPV PT (9.0-12.0) sec INR (<1.2) APTT (22.0-30.0) sec Sample Site Right Brachial ABG pH 7.16 L* (7.35-7.45) ABG pCO2 101 H* (35-45) mmHg ABG pO2 163 H (83-108) mmHg ABG HCO3 36 H (21-25) mmol/L ABG Total CO2 39 H (19-24) mmol/L ABG O2 Saturation 99.5 H (94-97) % ABG Base Excess 7.6 mmol/L Luis Test Yes FiO2 55 % Sodium (137-145) mmol/L Potassium (3.5-5.1) mmol/L Chloride (98-107) mmol/L Carbon Dioxide (22-30) mmol/L Anion Gap mmol/L BUN (9-20) mg/dL Creatinine (0.66-1.25) mg/dL Est GFR (CKD-EPI)AfAm (>60 ml/min/1.73 sqM) Est GFR (CKD-EPI)NonAf (>60 ml/min/1.73 sqM) Glucose (74-99) mg/dL Plasma Lactic Acid Abel (0.7-2.0) mmol/L Calcium (8.4-10.2) mg/dL Magnesium (1.6-2.3) mg/dL Total Bilirubin (0.2-1.3) mg/dL AST (17-59) U/L ALT (4-49) U/L Alkaline Phosphatase (38-126) U/L Troponin I (0.000-0.034) ng/mL Total Protein (6.3-8.2) g/dL Albumin (3.5-5.0) g/dL Coronavirus (PCR) (Not Detectd) Critical Care Time Critical Care Time: Yes Total Critical Care Time: 35 Disposition Clinical Impression: Decreased responsiveness, Hypercapnic acidosis, Hyponatremia, Leukocytosis Disposition: ADMITTED IP TO THIS HOSP Referrals: None,Stated [Primary Care Provider] - 1-2 days Time of Disposition: 13:25
[2021-09-27 11:34] LABS: HCT 39.9 % (39.0-53.0); HGB 13.4 gm/dL (13.0-17.5); MCH 32.3 pg (25.0-35.0); MCHC 33.6 g/dL (31.0-37.0); Mean Platelet Volume 7.1; Platelet Count 251 k/uL (150-450); RBC 4.16 m/uL (4.30-5.90); RDW 13.8 % (11.5-15.5)
[2021-09-27 11:44] LABS: ALT 15 U/L (4-49); AST 19 U/L (17-59); African American GFR (CKD) >90 (>60 ml/min/1.73 sqM); Albumin 3.8 g/dL (3.5-5.0); Alkaline Phosphatase 97 U/L (38-126); Anion Gap 1 mmol/L; Blood Urea Nitrogen 10 mg/dL (9-20); Calcium 7.8 mg/dL (8.4-10.2); Carbon Dioxide 34 mmol/L (22-30); Chloride 81 mmol/L (98-107); Glucose 125 mg/dL (74-99); Magnesium 1.9 mg/dL (1.6-2.3); Non-African American GFR(CKD) >90 (>60 ml/min/1.73 sqM); Potassium 5.1 mmol/L (3.5-5.1); Total Bilirubin 0.4 mg/dL (0.2-1.3)
[2021-09-27 11:45] LABS: Partial Thromboplastin Time 24.9 sec (22.0-30.0); Prothrombin Time 10.6 sec (9.0-12.0)
[2021-09-27 11:47] LABS: Sodium 116 mmol/L (137-145)
[2021-09-27 11:49] LABS: WBC 88.8 k/uL (3.8-10.6)
[2021-09-27 11:52] LABS: ABG Base Excess 7.6 mmol/L; ABG HCO3 36 mmol/L (21-25); ABG Oxygen Saturation 99.5 % (94-97); ABG PO2 163 mmHg (83-108); ABG TCO2 39 mmol/L (19-24); Allen Test Performed? Yes
[2021-09-27 11:53] LABS: ABG PCO2 101 mmHg (35-45); ABG PH 7.16 (7.35-7.45)
--- NOTE | 2021-09-27 12:05 | XR ---
EXAMINATION TYPE: XR chest 1V portable DATE OF EXAM: 09/27/2021 COMPARISON: Chest x-ray August 23, 2019 HISTORY: Difficulty in breathing. TECHNIQUE: Single AP portable frontal semiupright view of the chest is obtained. FINDINGS: There chronic parenchymal changes bilaterally without suspicious new focal air space opaci ty, pleural effusion, or pneumothorax seen. The cardiac silhouette size mildly enlarged. The osseo us structures are intact. IMPRESSION: Mild cardiomegaly and chronic parenchymal changes without acute pulmonary process seen c urrently.
--- NOTE | 2021-09-27 13:08 | CT ---
EXAMINATION TYPE: CT brain wo con CT DLP: 1133.4 mGycm, Automated exposure control for dose reduction was used. DATE OF EXAM: 09/27/2021 12:54 PM COMPARISON: CT brain 08/17/2019. CLINICAL INDICATION:Male, 66 years old with history of Altered mental status. TECHNIQUE: Brain: Multiple axial CT images of the brain were obtained without IV contrast. FINDINGS: Brain: Extra-axial spaces: No abnormal extra-axial fluid collections. Ventricular system: Dilatation in proportion to cerebral atrophy. Cerebral parenchyma: Cerebral atrophy. No acute intraparenchymal hemorrhage or mass effect. The ann -white junction is well differentiated. Scattered hypoattenuating areas are seen within the white mat ter. Cerebellum: Unremarkable. Mass effect: No evidence of midline shift. Intracranial vasculature: Atherosclerotic calcifications of the intracranial vessels. Soft tissues: Normal. Calvarium/osseous structures: No depressed skull fracture. Paranasal sinuses and mastoid air cells: Scattered polypoid lesions are seen throughout the nasal cav ity similar to prior. There is opacification of a majority of the ethmoid air cells. Visualized orbits: Orbital contents are intact. IMPRESSION: 1. No acute intracranial process. 2. Nonspecific white matter changes, likely secondary to chronic small vessel ischemic disease.
[2021-09-27] MEDS ORDERED: NALOXONE 0.4 MG/ML 1 ML VIAL IV PRN (13:26)
--- NOTE | 2021-09-27 14:14 | P.CNPUL ---
History of Present Illness Consult date: 09/27/21 Requesting physician: Martin Maza Reason for consult: dyspnea, other (Hypercapnia and altered mental status) Chief complaint: Altered mental status History of present illness: This is a 66-year-old male patient who has a history of schizophrenia currently on Invega, previous ventilatory dependent aspiration pneumonia, previous severe hyponatremia with SIADH, chronic obstructive pulmonary disease, hypertension, hyperlipidemia, lymphoma diagnosed in August 2019, chronic tobacco dependence. Yesterday his head buyer tobacco found him to be short of breath with some cough and congestion. Today his room air oxygen reading was 88% and EMS was called. He did develop altered mental status. Normally he is A and O 3. In the emergency room he was quite obtunded. No response to sternal rub or painful stimulation. White count 88.8. Hemoglobin 13.4. Platelets 251. INR 1.0. Sodium 116. Potassium 5.1. Bicarb 34. BUN 10. Creatinine 0.49. Glucose 125. Coronary virus by PCR not detected. Arterial blood gases on 55% FiO2 revealed a PaO2 of 163, pCO2 of 101 and a pH of 7.16. Placed on BiPAP 02/18 and decreased to 35% FiO2. He is seen today in consultation in the emergency department. He remains quite obtunded. He does withdraw to pain. Some inappropriate words. Opening his eyes to pain. Chest x-ray reveals mild cardiomegaly and chronic parenchymal changes without acute pulmonary process. CT of the brain revealed no acute intracranial process. Some non-specific white matter changes, likely secondary to chronic small vessel ischemic disease. Review of Systems ROS unobtainable: due to mental status Past Medical History Past Medical History: COPD, Diabetes Mellitus, Hypertension Additional Past Medical History / Comment(s): Previous history of CVA, schizophrenia, type 2 diabetes mellitus, history of SIADH with severe hyponatremia, history of mediastinal lymphadenopathy, history of pansinusitis with possible mastoiditis on a CAT scan of the brain and MRI of the brain, history of lacunar infarct with some right-sided facial weakness. History of Any Multi-Drug Resistant Organisms: None Reported Past Surgical History: Orthopedic Surgery Additional Past Surgical History / Comment(s): sinus sx Past Anesthesia/Blood Transfusion Reactions: No Reported Reaction Past Psychological History: Schizophrenia Smoking Status: Never smoker Past Alcohol Use History: None Reported Past Drug Use History: Cocaine Medications and Allergies Home Medications Medication Instructions Recorded Confirmed Type Acetaminophen Tab [Tylenol] 650 mg PO BID 09/27/21 09/27/21 History Cholecalciferol [Vitamin D3 (25 25 mcg PO DAILY 09/27/21 09/27/21 History Mcg = 1000 Iu)] Ketoconazole 2% Cream [Nizoral 2%] 1 applic TOPICAL DIRECTED 09/27/21 09/27/21 History Multivitamins, Thera [Multivitamin 1 tab PO DAILY 09/27/21 09/27/21 History (formulary)] Paliperidone IM [Invega Sustenna] 234 mg IM Q28D 09/27/21 09/27/21 History Allergies Allergy/AdvReac Type Severity Reaction Status Date / Time Sulfa (Sulfonamide Allergy Rash/Hives Verified 03/01/21 11:19 Antibiotics) Physical Exam Vitals: Vital Signs Temp Pulse Resp BP Pulse Ox FiO2 09/27/21 13:41 80 20 100/73 93 L 09/27/21 12:36 90 27 H 106/74 90 L 09/27/21 12:00 95 18 105/78 91 L 09/27/21 11:57 30 09/27/21 11:27 108 H 09/27/21 11:11 26 H 09/27/21 11:02 98.4 F 106 H 26 H 157/131 99 Intake and Output 09/26/21 09/27/21 09/27/21 22:59 06:59 14:59 Other: Weight 90.718 kg GENERAL EXAM: Obtunded, minimally responsive, 66-year-old male patient, on BiPAP 12/6 and 35% FiO2. HEAD: Normocephalic. EYES: Normal reaction of pupils, equal size. NOSE: Clear with pink turbinates. THROAT: No erythema or exudates. NECK: No masses, no JVD. CHEST: No chest wall deformity. LUNGS: Equal air entry with no crackles, wheeze, rhonchi or dullness. CVS: S1 and S2 normal with no audible murmur, regular rhythm. ABDOMEN: No hepatosplenomegaly, normal bowel sounds, no guarding or rigidity. SPINE: No scoliosis or deformity SKIN: No rashes CENTRAL NERVOUS SYSTEM: Obtunded, tone is normal in all 4 extremities. EXTREMITIES: There is no peripheral edema. No clubbing, no cyanosis. Peripheral pulses are intact. Results - Laboratory Findings CBC and BMP: 09/27/21 11:03 09/27/21 11:03 ABG ABG pH 7.16 (7.35-7.45) L* 09/27/21 11:45 ABG pCO2 101 mmHg (35-45) H* 09/27/21 11:45 ABG pO2 163 mmHg (83-108) H 09/27/21 11:45 ABG O2 Saturation 99.5 % (94-97) H 09/27/21 11:45 PT/INR, D-dimer PT 10.6 sec (9.0-12.0) 09/27/21 11:03 INR 1.0 (<1.2) 09/27/21 11:03 Abnormal lab findings: Abnormal Labs 09/27/21 09/27/21 09/27/21 11:03 11:03 11:03 WBC 88.8 H* RBC 4.16 L ABG pH ABG pCO2 ABG pO2 ABG HCO3 ABG Total CO2 ABG O2 Saturation Sodium 116 L* Chloride 81 L Carbon Dioxide 34 H Creatinine 0.49 L Glucose 125 H Plasma Lactic Acid Abel 0.6 L Calcium 7.8 L Total Protein 6.0 L 09/27/21 11:45 WBC RBC ABG pH 7.16 L* ABG pCO2 101 H* ABG pO2 163 H ABG HCO3 36 H ABG Total CO2 39 H ABG O2 Saturation 99.5 H Sodium Chloride Carbon Dioxide Creatinine Glucose Plasma Lactic Acid Abel Calcium Total Protein - Diagnostic Findings Chest x-ray: image reviewed Assessment and Plan Assessment: Altered mental status secondary to acute on chronic hypercapnic respiratory failure and hyponatremia. Hyponatremia of unclear etiology. The patient does have a previous history of SIADH possibly related to Risperdal and Prozac History of schizophrenia History of incarceration Leukocytosis secondary to history of lymphoma diagnosed in August 2019 Chronic and ongoing tobacco dependence History of cocaine use Diabetes mellitus, type II Hypertension Chronic obstructive pulmonary disease Previous hospitalization for aspiration, pneumonia and ventilatory dependent respiratory failure Previous history of lacunar infarct with residual right-sided facial weakness Plan: The patient was seen and evaluated Chest x-ray, ABGs and labs reviewed Continue BiPAP 12/6 and 35% FiO2 Consult nephrology for possible SIADH Consult oncology for leukocytosis/lymphoma Admit to the intensive care unit for closer monitoring The patient is a DO NOT RESUSCITATE/DO NOT INTUBATE CODE STATUS We will continue to follow and make further recommendations based on his clinica l status I have personally seen and examined the patient, performed the documentation and the assessment and plan as written. Number of minutes spent on the visit: 20.
[2021-09-27] MEDS: SODIUM CHLORIDE 0.9% 1,000 ML IV SCH (14:18)
[2021-09-27 14:52] LABS: Lymphocytes # (M) 67.49 k/uL (1.0-4.8); Monocytes # (M) 3.55 k/uL (0-1.0); Neutrophils # (M) 18.65 k/uL (1.3-7.7); Neutrophils % (M) 21 %; Nucleated Red Blood Cells 0 /100 WBC (0-0); Total Cells Counted 200
[2021-09-27 14:57] LABS: RBC Morphology Normal
[2021-09-27 17:21] LABS: Glucose,Whole Blood 151 mg/dL (70-110)
[2021-09-27 18:33] LABS: African American GFR (CKD) >90 (>60 ml/min/1.73 sqM); Anion Gap 4 mmol/L; Blood Urea Nitrogen 12 mg/dL (9-20); Calcium 8.3 mg/dL (8.4-10.2); Carbon Dioxide 33 mmol/L (22-30); Chloride 79 mmol/L (98-107); Glucose 156 mg/dL (74-99); Non-African American GFR(CKD) >90 (>60 ml/min/1.73 sqM); Potassium 5.9 mmol/L (3.5-5.1); Uric Acid 3.4 mg/dL (3.5-8.5)
[2021-09-27 18:49] LABS: Sodium 116 mmol/L (137-145)
[2021-09-27] MEDS ORDERED: FUROSEMIDE 10 MG/ML 2 ML VIAL IV ONE (19:07)
[2021-09-27] MEDS: SODIUM CHLORIDE 3%(HYPERTONIC) 500 ML IV SCH (19:42)
[2021-09-27] MEDS: DEXMEDETOMIDINE/0.9% NACL(PMX) 400 MCG in EMPTY BAG 1 BAG IV SCH (20:33)
[2021-09-27 23:49] LABS: Glucose,Whole Blood 121 mg/dL (70-110)
[2021-09-28] MEDS ORDERED: FUROSEMIDE 10 MG/ML 2 ML VIAL IV ONE ×2 (01:38→18:24)
[2021-09-28] MEDS: SODIUM CHLORIDE 0.9% 1,000 ML IV SCH ×2 (03:56→16:27)
[2021-09-28] MEDS: DEXMEDETOMIDINE/0.9% NACL(PMX) 400 MCG in EMPTY BAG 1 BAG IV SCH ×2 (03:56→18:28)
[2021-09-28] MEDS: NOREPINEPHRINE 4 MG in SODIUM CHLORIDE 0.9% 250 ML IV SCH ×3 (05:34→21:01)
[2021-09-28] MEDS: SODIUM CHLORIDE 3%(HYPERTONIC) 500 ML IV SCH ×3 (05:35→20:58)
[2021-09-28 05:51] LABS: Glucose,Whole Blood 134 mg/dL (70-110)
[2021-09-28 06:46] LABS: Calcium 8.2 mg/dL (8.4-10.2); Potassium 5.8 mmol/L (3.5-5.1)
--- NOTE | 2021-09-28 07:29 | XR ---
EXAMINATION TYPE: XR chest 1V DATE OF EXAM: 09/28/2021 HISTORY: Shortness of breath. COMPARISON: 09/27/2021 TECHNIQUE: Single view of the chest is submitted. FINDINGS: Demonstrated are scattered senescent parenchymal change. Persistent left lower lobe infiltrate and/or effusion as well as discoid atelectasis right lower lobe . The heart is stable. Hilar and mediastinal structures are within normal limits. Degenerative changes are seen of the dorsal spine. IMPRESSION: 1. Persistent left lower lobe infiltrate and/or effusion as well as discoid atelectasis right lower lobe.
[2021-09-28 08:48] LABS: HCT 41.9 % (39.0-53.0); MCH 30.5 pg (25.0-35.0); MCV 98.3 fL (80.0-100.0); Mean Platelet Volume 7.3; Platelet Count 286 k/uL (150-450); RBC 4.26 m/uL (4.30-5.90); RDW 13.3 % (11.5-15.5)
[2021-09-28 08:50] LABS: WBC 82.9 k/uL (3.8-10.6)
[2021-09-28] MEDS ORDERED: DEXTROSE 50% SYRINGE 50 ML IVP STA (09:19)
[2021-09-28] MEDS ORDERED: INSULIN REGULAR 100 UNIT/ML VIAL (IV) IV ONE (09:30)
[2021-09-28] MEDS ORDERED: CALCIUM GLUCONATE IN NACL 1 GM in SALINE 1 100ML.BAG IVPB ONE (09:30)
[2021-09-28] MEDS: PANTOPRAZOLE 40 MG/10 ML VIAL IVP SCH (09:58)
[2021-09-28] MEDS: HEPARIN SODIUM,PORCINE/PF 5,000 UNIT/0.5 ML SYRINGE SQ SCH ×3 (09:58→23:42)
--- NOTE | 2021-09-28 10:26 | P.CONS ---
History of Present Illness - Reason for Consult Consult date: 09/28/21 Acute respiratory failure, SIRS, low-grade lymphoma- leukemia - History of Present Illness Mr. Valle is a 66-year-old male with a complex past medical history who we initially saw in consult 01/01 for elevated WBC. All of the differential was increased as well. Chart review showed this was present as far back as 2016 but, it is progressively worsening. Work up was negative for a paraproteinemia, MMA was high suggestive of functional B12 deficit, K/L were slightly elevated with near normal ratio, iron studies showed only a slight iron deficiency. Pt did not f/u. He was seen in consult again in 09/02 when admitted with hyponatremia, and persistent leucoytosis, with lymphocytosis predominant. CT chest in 05/05 showed subcarinal adenoapthy, prominent axillary, shotty medistinal and hilar nodes. CT AP in 09/02 had shown elarged retroperitoneal nodes. HE had a US guided L neck node bx, positive for SLL/CLL. Surprisingly peripheral blood flow was negative. He again did not f/u The patient was admitted this time, as he was found by his caregiver to have cough, condition, and shortness of breath. On evaluation on admission, the patient was found to be hypoxic with increased respiratory rate, and low blood pressure. Chest x-ray was read as chronic parenchymal changes without acute process. Repeat x-ray noted a left lower lobe infiltrate or effusion, unchanged from before. Labs on admission showed WBC in the 80,000 range, with predominant lymphocytes. Hemoglobin and platelets were normal. Labs in 01/03 had shown his WBC to be at his usual baseline, in the 20,000 range. The patient is currently on BiPAP, sedated, and unable to provide history. History was therefore obtained from the EMR, physician notes, and from nursing. Review of Systems Unobtainable from patient. Obtained from EMR, physician notes, and nursing Constitutional: Reports as per HPI, Reports weakness Eyes: denies blurred vision, denies pain Ears, nose, mouth and throat: Denies headache, Denies sore throat Cardiovascular: Denies chest pain, Denies shortness of breath Respiratory: Reports as per HPI, Reports congestion, Reports cough, Reports dyspnea Gastrointestinal: Denies abdominal pain, Denies diarrhea, Denies nausea, Denies vomiting Genitourinary: Reports as per HPI Musculoskeletal: Reports muscle weakness Integumentary: Denies pruritus, Denies rash Neurological: Reports as per HPI, Reports change in mentation Psychiatric: Reports as per HPI, Reports confusion Endocrine: Denies fatigue, Denies weight change Hematologic/Lymphatic: Reports as per HPI Past Medical History Past Medical History: COPD, CVA/TIA, Diabetes Mellitus, Hyperlipidemia, Hypertension, Pneumonia Additional Past Medical History / Comment(s): Previous history of CVA/L hemiparesis, NIDDM type II/diet controlled, chronic hypercapnic respiratory failure, previous aspiration pneumonia/vented, SIADH with severe hyponatremia, mediastinal lymphadenopathy/lymphoma, pansinusitis with possible mastoiditis on a CAT scan of the brain and MRI of the brain History of Any Multi-Drug Resistant Organisms: None Reported Past Surgical History: Orthopedic Surgery Additional Past Surgical History / Comment(s): sinus sx, lymph node biopsy Past Anesthesia/Blood Transfusion Reactions: No Reported Reaction Past Psychological History: Schizophrenia Additional Psychological History / Comment(s): Pt resides alone. He has Julien Meganradhachente as his legal guardian. Smoking Status: Current every day smoker Past Alcohol Use History: None Reported Past Drug Use History: Cocaine - Past Family History Father History Unknown: Yes Mother History Unknown: Yes Medications and Allergies Home Medications Medication Instructions Recorded Confirmed Type Acetaminophen Tab [Tylenol] 650 mg PO BID 09/27/21 09/27/21 History Cholecalciferol [Vitamin D3 (25 25 mcg PO DAILY 09/27/21 09/27/21 History Mcg = 1000 Iu)] Ketoconazole 2% Cream [Nizoral 2%] 1 applic TOPICAL DIRECTED 09/27/21 09/27/21 History Multivitamins, Thera [Multivitamin 1 tab PO DAILY 09/27/21 09/27/21 History (formulary)] Paliperidone IM [Invega Sustenna] 234 mg IM Q28D 09/27/21 09/27/21 History Allergies Allergy/AdvReac Type Severity Reaction Status Date / Time Sulfa (Sulfonamide Allergy Rash/Hives Verified 03/01/21 11:19 Antibiotics) Physical Exam Vitals: Vital Signs Temp Pulse Pulse Resp BP BP Pulse Ox 09/28/21 08:28 09/28/21 08:00 98 F 81 31 H 78/47 98 09/28/21 07:51 09/28/21 07:00 90 28 H 86/51 96 09/28/21 06:00 98.4 F 125 H 31 H 101/52 97 09/28/21 05:00 100 33 H 94/64 95 09/28/21 04:00 99.6 F 84 29 H 84/57 94 L 09/28/21 03:28 09/28/21 03:00 81 28 H 86/59 95 09/28/21 02:00 87 29 H 81/59 96 09/28/21 01:00 80 29 H 85/57 95 09/28/21 00:00 99.3 F 78 27 H 88/63 96 09/27/21 23:19 09/27/21 23:00 83 32 H 98/68 89 L 09/27/21 22:21 84 31 H 95/71 87 L 09/27/21 22:00 89 36 H 101/68 88 L 09/27/21 21:00 97 35 H 112/69 87 L 09/27/21 20:16 09/27/21 20:04 97.8 F 97 40 H 128/93 09/27/21 20:00 97.8 F 96 40 H 135/90 95 09/27/21 19:10 98 36 H 95 09/27/21 19:00 101 H 38 H 138/98 94 L 09/27/21 18:50 95 27 H 93 L 09/27/21 18:40 104 H 36 H 85 L 09/27/21 18:30 104 H 40 H 127/84 84 L 09/27/21 18:20 106 H 42 H 83 L 09/27/21 18:10 107 H 37 H 144/106 83 L 09/27/21 18:00 112 H 41 H 147/99 81 L 09/27/21 17:52 09/27/21 17:50 112 H 37 H 78 L 09/27/21 17:40 109 H 44 H 147/99 77 L 09/27/21 17:30 99.2 F 108 H 157/103 96 09/27/21 17:15 09/27/21 17:01 98 26 H 154/89 88 L 09/27/21 16:00 78 18 122/77 94 L 09/27/21 15:30 09/27/21 14:38 79 20 116/78 96 09/27/21 14:25 09/27/21 13:41 80 20 100/73 93 L 09/27/21 12:36 90 27 H 106/74 90 L 09/27/21 12:00 95 18 105/78 91 L 09/27/21 11:57 09/27/21 11:27 108 H 09/27/21 11:11 26 H 09/27/21 11:02 98.4 F 106 H 26 H 157/131 99 FiO2 09/28/21 08:28 90 09/28/21 08:00 100 09/28/21 07:51 100 09/28/21 07:00 100 09/28/21 06:00 09/28/21 05:00 100 09/28/21 04:00 100 09/28/21 03:28 100 09/28/21 03:00 100 09/28/21 02:00 09/28/21 01:00 09/28/21 00:00 100 09/27/21 23:19 100 09/27/21 23:00 09/27/21 22:21 09/27/21 22:00 09/27/21 21:00 100 09/27/21 20:16 100 09/27/21 20:04 100 09/27/21 20:00 100 09/27/21 19:10 100 09/27/21 19:00 100 09/27/21 18:50 100 09/27/21 18:40 100 09/27/21 18:30 100 09/27/21 18:20 100 09/27/21 18:10 100 09/27/21 18:00 100 09/27/21 17:52 100 09/27/21 17:50 100 09/27/21 17:40 100 09/27/21 17:30 60 09/27/21 17:15 60 09/27/21 17:01 09/27/21 16:00 09/27/21 15:30 40 09/27/21 14:38 09/27/21 14:25 40 09/27/21 13:41 09/27/21 12:36 09/27/21 12:00 09/27/21 11:57 30 09/27/21 11:27 09/27/21 11:11 09/27/21 11:02 Intake and Output 09/27/21 09/28/21 09/28/21 22:59 06:59 14:59 Intake Total 306.460 469.635 104.101 Output Total 595 695 10 Balance -288.540 -225.365 94.101 Intake: IV 300 400 50 Sodium Chloride 0.9% 1, 150 000 ml @ 75 mls/hr IV . [id number] MEGAN Rx#:[id number] Sodium Chloride 3%( 150 400 50 Hypertonic) 500 ml @ 50 mls/hr IV .Q10H MEGAN Rx#: [id number] Intake, IV Titration 6.460 69.635 54.101 Amount Dexmedetomidine/0.9% NaCl 6.460 69.635 34.073 (Pmx) 400 mcg In Empty Bag 1 bag @ 0.2 MCG/KG/HR 3.8 mls/hr IV .Q24H MEGAN Rx#:[id number] Norepinephrine 4 mg In 20.028 Sodium Chloride 0.9% 250 ml @ 0.05 MCG/KG/MIN 14. 478 mls/hr IV .[id number] MEGAN Rx#:[id number] Output: Urine 595 695 10 Uretheral (Hebert) 160 240 Other: Voiding Method Indwelling Catheter Indwelling Catheter Weight 78.3 kg - Constitutional Patient with increased respiratory rate in work of breathing, on BiPAP. Sedated, obtunded, not arousable currently - EENT Eyes: PERRLA ENT: normal oropharynx - Respiratory Respiratory: bilateral: rhonchi - Cardiovascular Rhythm: regular Heart sounds: normal: S1, S2 - Gastrointestinal General gastrointestinal: normal bowel sounds, soft - Integumentary Integumentary: normal - Neurologic Sedated, obtunded Occasionally moving all extremities spontaneously - Musculoskeletal Musculoskeletal: generalized weakness - Psychiatric Mental status as noted above. Results CBC & Chem 7: 09/28/21 08:20 09/28/21 05:33 Labs: Abnormal Lab Results - Last 24 Hours (Table) 09/27/21 09/27/21 09/27/21 Range/Units 11:03 11:03 11:03 WBC 88.8 H* (3.8-10.6) k/uL RBC 4.16 L (4.30-5.90) m/uL Neutrophils # (Manual) 18.65 H (1.3-7.7) k/uL Lymphocytes # (Manual) 67.49 H (1.0-4.8) k/uL Monocytes # (Manual) 3.55 H (0-1.0) k/uL ABG pH (7.35-7.45) ABG pCO2 (35-45) mmHg ABG pO2 (83-108) mmHg ABG HCO3 (21-25) mmol/L ABG Total CO2 (19-24) mmol/L ABG O2 Saturation (94-97) % Sodium 116 L* (137-145) mmol/L Potassium (3.5-5.1) mmol/L Chloride 81 L (98-107) mmol/L Carbon Dioxide 34 H (22-30) mmol/L BUN (9-20) mg/dL Creatinine 0.49 L (0.66-1.25) mg/dL Glucose 125 H (74-99) mg/dL POC Glucose (mg/dL) (70-110) mg/dL Plasma Lactic Acid Abel 0.6 L (0.7-2.0) mmol/L Uric Acid (3.5-8.5) mg/dL Calcium 7.8 L (8.4-10.2) mg/dL Total Protein 6.0 L (6.3-8.2) g/dL 09/27/21 09/27/21 09/27/21 Range/Units 11:45 17:20 18:12 WBC (3.8-10.6) k/uL RBC (4.30-5.90) m/uL Neutrophils # (Manual) (1.3-7.7) k/uL Lymphocytes # (Manual) (1.0-4.8) k/uL Monocytes # (Manual) (0-1.0) k/uL ABG pH 7.16 L* (7.35-7.45) ABG pCO2 101 H* (35-45) mmHg ABG pO2 163 H (83-108) mmHg ABG HCO3 36 H (21-25) mmol/L ABG Total CO2 39 H (19-24) mmol/L ABG O2 Saturation 99.5 H (94-97) % Sodium 116 L* (137-145) mmol/L Potassium 5.9 H (3.5-5.1) mmol/L Chloride 79 L (98-107) mmol/L Carbon Dioxide 33 H (22-30) mmol/L BUN (9-20) mg/dL Creatinine 0.62 L (0.66-1.25) mg/dL Glucose 156 H (74-99) mg/dL POC Glucose (mg/dL) 151 H (70-110) mg/dL Plasma Lactic Acid Abel (0.7-2.0) mmol/L Uric Acid 3.4 L (3.5-8.5) mg/dL Calcium 8.3 L (8.4-10.2) mg/dL Total Protein (6.3-8.2) g/dL 09/27/21 09/28/21 09/28/21 Range/Units 23:47 00:21 05:33 WBC (3.8-10.6) k/uL RBC (4.30-5.90) m/uL Neutrophils # (Manual) (1.3-7.7) k/uL Lymphocytes # (Manual) (1.0-4.8) k/uL Monocytes # (Manual) (0-1.0) k/uL ABG pH (7.35-7.45) ABG pCO2 (35-45) mmHg ABG pO2 (83-108) mmHg ABG HCO3 (21-25) mmol/L ABG Total CO2 (19-24) mmol/L ABG O2 Saturation (94-97) % Sodium 118 L* 120 L (137-145) mmol/L Potassium (3.5-5.1) mmol/L Chloride (98-107) mmol/L Carbon Dioxide (22-30) mmol/L BUN (9-20) mg/dL Creatinine (0.66-1.25) mg/dL Glucose (74-99) mg/dL POC Glucose (mg/dL) 121 H (70-110) mg/dL Plasma Lactic Acid Abel (0.7-2.0) mmol/L Uric Acid (3.5-8.5) mg/dL Calcium (8.4-10.2) mg/dL Total Protein (6.3-8.2) g/dL 09/28/21 09/28/21 09/28/21 Range/Units 05:33 05:49 08:20 WBC 82.9 H* (3.8-10.6) k/uL RBC 4.26 L (4.30-5.90) m/uL Neutrophils # (Manual) (1.3-7.7) k/uL Lymphocytes # (Manual) (1.0-4.8) k/uL Monocytes # (Manual) (0-1.0) k/uL ABG pH (7.35-7.45) ABG pCO2 (35-45) mmHg ABG pO2 (83-108) mmHg ABG HCO3 (21-25) mmol/L ABG Total CO2 (19-24) mmol/L ABG O2 Saturation (94-97) % Sodium 120 L (137-145) mmol/L Potassium 5.8 H (3.5-5.1) mmol/L Chloride 86 L (98-107) mmol/L Carbon Dioxide (22-30) mmol/L BUN 24 H (9-20) mg/dL Creatinine (0.66-1.25) mg/dL Glucose 116 H (74-99) mg/dL POC Glucose (mg/dL) 134 H (70-110) mg/dL Plasma Lactic Acid Abel (0.7-2.0) mmol/L Uric Acid (3.5-8.5) mg/dL Calcium 8.2 L (8.4-10.2) mg/dL Total Protein (6.3-8.2) g/dL Comments: EKG reviewed Chest x-ray: report reviewed CT Scan - head: report reviewed Assessment and Plan (1) Small lymphocytic lymphoma Narrative/Plan: Patient was diagnosed with SLL/CLL at the time of his previous consultation in 09/02. He did have lymphocytosis but interestingly flow cytometry and the peripheral blood was negative. Diagnosis was made by lymph node biopsy. This is a low-grade, indolent condition, and the patient was a symptomatically from the same. Hemoglobin and platelets were normal. The patient did not follow-up. However standard of care at that time would have been observation anyway. - During this admission the patient is noted to have marked increase in his WBC from baseline into the 80,000 range. On exam there appears to be no progression of his adenopathy. Hemoglobin and platelets remain normal. Therefore it is felt to be unlikely that there is progression of his underlying condition, causing his current presentation. His current deterioration was quite acute. Therefore it is more likely that it is due to some other etiology, which is c ausing reactive increase in his lymphocytes. - Therefore to the admitting service and [facility] for management of his current acute condition. Continue to monitor his blood counts. Watch for any signs of tumor lysis. Current Visit: Yes Status: Acute Code(s): C83.00 - SMALL CELL B-CELL LYMPHOMA, UNSPECIFIED SITE SNOMED Code(s): 433599960 (2) Hyponatremia Narrative/Plan: Again, this is less likely to be due to his underlying syndrome/CLL, as the patient was admitted with similar complaints with sodium in the 110 range in 09/02, when his WBC was much lower. Defer to [facility] and other consultants for management. Current Visit: Yes Status: Acute Code(s): E87.1 - HYPO-OSMOLALITY AND HYPONATREMIA SNOMED Code(s): 14806336 (3) Acute respiratory failure Narrative/Plan: On BiPAP. CCM following. Current Visit: Yes Status: Acute Code(s): J96.00 - ACUTE RESPIRATORY FAILURE, UNSP W HYPOXIA OR HYPERCAPNIA SNOMED Code(s): 91331916
[2021-09-28 10:31] LABS: Band Neutrophils % 2 %; Monocytes # (M) 3.32 k/uL (0-1.0); Neutrophils % (M) 18 %; Nucleated Red Blood Cells 0 /100 WBC (0-0); RBC Morphology Normal; Total Cells Counted 200
--- NOTE | 2021-09-28 11:38 | P.NPCON ---
History of Present Illness - Reason for Consult hyponatremia - Chief Complaint obtundation and hyponatremia - History of Present Illness this is a 66-year-old male who was brought in by EMS because of mental status changes, found to have severe hyponatremia sodium is 116 with a creatinine of 0.4this was deemed to be from SIADH and he was started on 3% saline sodium is slowly improved to 120. In the meantime his blood pressure went down and he is oliguric oliguric. He is started on levo fed currently. He is on a BiPAPhis obtunded unable to give any history for his potassium is down to 5.8. Creatinine gone up to 1.16. Calcium is 8.2 uric acid is 3.4. Past Medical History Past Medical History: COPD, CVA/TIA, Diabetes Mellitus, Hyperlipidemia, Hypertension, Pneumonia Additional Past Medical History / Comment(s): Previous history of CVA/L hemiparesis, NIDDM type II/diet controlled, chronic hypercapnic respiratory failure, previous aspiration pneumonia/vented, SIADH with severe hyponatremia, mediastinal lymphadenopathy/lymphoma, pansinusitis with possible mastoiditis on a CAT scan of the brain and MRI of the brain History of Any Multi-Drug Resistant Organisms: None Reported Past Surgical History: Orthopedic Surgery Additional Past Surgical History / Comment(s): sinus sx, lymph node biopsy Past Anesthesia/Blood Transfusion Reactions: No Reported Reaction Past Psychological History: Schizophrenia Additional Psychological History / Comment(s): Pt resides alone. He has Julien Adair as his legal guardian. Smoking Status: Current every day smoker Past Alcohol Use History: None Reported Past Drug Use History: Cocaine - Past Family History Father History Unknown: Yes Mother History Unknown: Yes Medications and Allergies Home Medications Medication Instructions Recorded Confirmed Type Acetaminophen Tab [Tylenol] 650 mg PO BID 09/27/21 09/27/21 History Cholecalciferol [Vitamin D3 (25 25 mcg PO DAILY 09/27/21 09/27/21 History Mcg = 1000 Iu)] Ketoconazole 2% Cream [Nizoral 2%] 1 applic TOPICAL DIRECTED 09/27/21 09/27/21 History Multivitamins, Thera [Multivitamin 1 tab PO DAILY 09/27/21 09/27/21 History (formulary)] Paliperidone IM [Invega Sustenna] 234 mg IM Q28D 09/27/21 09/27/21 History Allergies Allergy/AdvReac Type Severity Reaction Status Date / Time Sulfa (Sulfonamide Allergy Rash/Hives Verified 03/01/21 11:19 Antibiotics) Physical Exam Vitals: Vital Signs Temp Pulse Pulse Resp BP BP Pulse Ox 09/28/21 10:00 90 28 H 89/60 93 L 09/28/21 09:00 77 24 76/49 92 L 09/28/21 08:28 09/28/21 08:00 98 F 81 31 H 78/47 98 09/28/21 07:51 09/28/21 07:00 90 28 H 86/51 96 09/28/21 06:00 98.4 F 125 H 31 H 101/52 97 09/28/21 05:00 100 33 H 94/64 95 09/28/21 04:00 99.6 F 84 29 H 84/57 94 L 09/28/21 03:28 09/28/21 03:00 81 28 H 86/59 95 09/28/21 02:00 87 29 H 81/59 96 09/28/21 01:00 80 29 H 85/57 95 09/28/21 00:00 99.3 F 78 27 H 88/63 96 09/27/21 23:19 09/27/21 23:00 83 32 H 98/68 89 L 09/27/21 22:21 84 31 H 95/71 87 L 09/27/21 22:00 89 36 H 101/68 88 L 09/27/21 21:00 97 35 H 112/69 87 L 09/27/21 20:16 09/27/21 20:04 97.8 F 97 40 H 128/93 09/27/21 20:00 97.8 F 96 40 H 135/90 95 09/27/21 19:10 98 36 H 95 09/27/21 19:00 101 H 38 H 138/98 94 L 09/27/21 18:50 95 27 H 93 L 09/27/21 18:40 104 H 36 H 85 L 09/27/21 18:30 104 H 40 H 127/84 84 L 09/27/21 18:20 106 H 42 H 83 L 09/27/21 18:10 107 H 37 H 144/106 83 L 09/27/21 18:00 112 H 41 H 147/99 81 L 09/27/21 17:52 09/27/21 17:50 112 H 37 H 78 L 09/27/21 17:40 109 H 44 H 147/99 77 L 09/27/21 17:30 99.2 F 108 H 157/103 96 09/27/21 17:15 09/27/21 17:01 98 26 H 154/89 88 L 09/27/21 16:00 78 18 122/77 94 L 09/27/21 15:30 09/27/21 14:38 79 20 116/78 96 09/27/21 14:25 09/27/21 13:41 80 20 100/73 93 L 09/27/21 12:36 90 27 H 106/74 90 L 09/27/21 12:00 95 18 105/78 91 L 09/27/21 11:57 FiO2 09/28/21 10:00 90 09/28/21 09:00 90 09/28/21 08:28 90 09/28/21 08:00 100 09/28/21 07:51 100 09/28/21 07:00 100 09/28/21 06:00 09/28/21 05:00 100 09/28/21 04:00 100 09/28/21 03:28 100 09/28/21 03:00 100 09/28/21 02:00 09/28/21 01:00 09/28/21 00:00 100 09/27/21 23:19 100 09/27/21 23:00 09/27/21 22:21 09/27/21 22:00 09/27/21 21:00 100 09/27/21 20:16 100 09/27/21 20:04 100 09/27/21 20:00 100 09/27/21 19:10 100 09/27/21 19:00 100 09/27/21 18:50 100 09/27/21 18:40 100 09/27/21 18:30 100 09/27/21 18:20 100 09/27/21 18:10 100 09/27/21 18:00 100 09/27/21 17:52 100 09/27/21 17:50 100 09/27/21 17:40 100 09/27/21 17:30 60 09/27/21 17:15 60 09/27/21 17:01 09/27/21 16:00 09/27/21 15:30 40 09/27/21 14:38 09/27/21 14:25 40 09/27/21 13:41 09/27/21 12:36 09/27/21 12:00 09/27/21 11:57 30 Intake and Output 09/27/21 09/28/21 09/28/21 22:59 06:59 14:59 Intake Total 306.460 469.635 314.741 Output Total 595 695 30 Balance -288.540 -225.365 284.741 Intake: IV 300 400 150 Sodium Chloride 0.9% 1, 150 000 ml @ 75 mls/hr IV . [id number] [facility] Rx#:[id number] Sodium Chloride 3%( 150 400 150 Hypertonic) 500 ml @ 50 mls/hr IV .Q10H [facility] Rx#: [id number] Intake, IV Titration 6.460 69.635 164.741 Amount Calcium Gluconate in NaCl 100 1 gm In Saline 1 100ml. bag @ 100 mls/hr IVPB ONCE ONE Rx#:[id number] Dexmedetomidine/0.9% NaCl 6.460 69.635 44.713 (Pmx) 400 mcg In Empty Bag 1 bag @ 0.2 MCG/KG/HR 3.8 mls/hr IV .Q24H [facility] Rx#:[id number] Norepinephrine 4 mg In 20.028 Sodium Chloride 0.9% 250 ml @ 0.05 MCG/KG/MIN 14. 478 mls/hr IV .[id number] [facility] Rx#:[id number] Output: Urine 595 695 30 Uretheral ([facility]) 160 240 Other: Voiding Method Indwelling Catheter Indwelling Catheter Indwelling Catheter Weight 78.3 kg examination No JVP noted he is on a BiPAP. Lungs are clear to auscultation fair air entry bilaterally Heart sounds unremarkable is in normal sinus rhythm Abdomen soft nondistended Extremity exam was no edema Neurologically obtunded. Results - Lab Results Most recent lab results ABG pH 7.16 (7.35-7.45) L* 09/27/21 11:45 ABG pCO2 101 mmHg (35-45) H* 09/27/21 11:45 ABG pO2 163 mmHg (83-108) H 09/27/21 11:45 ABG HCO3 36 mmol/L (21-25) H 09/27/21 11:45 ABG O2 Saturation 99.5 % (94-97) H 09/27/21 11:45 Calcium 8.2 mg/dL (8.4-10.2) L 09/28/21 05:33 Magnesium 1.9 mg/dL (1.6-2.3) 09/27/21 11:03 09/28/21 08:20 09/28/21 05:33 Assessment and Plan Assessment: impression 1. Hyponatremia initially thought to be from SIADH but his urine output has gone down his blood pressure is down. improving on 3% salin 2. Acute kidney injury with hypotension 3. History of CLL/SLL has not followed up with hematology 4. Obtundation secondary tolow blood pressure.. 5.respiratory alkalosis secondary to confusion, pH is 7.16 pCO2 is 101 pO2 is 163 Recommendation 1. Maintain 3% saline at 50 an hour. 2. Recheck labsevery 4 hours. 3.Will give hydrocortisone because of the low blood pressure and hyponatremia and hyperkalemia. thank you for this consultation and will continue to follow
--- NOTE | 2021-09-28 11:42 | P.PN ---
Subjective Progress Note Date: 09/28/21 Principal diagnosis: Hypercapnia, altered mental status This is a 66-year-old male patient who has a history of schizophrenia currently on Invega, previous ventilatory dependent aspiration pneumonia, previous severe hyponatremia with SIADH, chronic obstructive pulmonary disease, hypertension, hyperlipidemia, lymphoma diagnosed in August 2019, chronic tobacco dependence. 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 Today his room air oxygen reading was 88% and EMS was called. He did develop altered mental status. Normally he is A and O 3. In the emergency room he was quite obtunded. No response to sternal rub or painful stimulation. White count 88.8. Hemoglobin 13.4. Platelets 251. INR 1.0. Sodium 116. Potassium 5.1. Bicarb 34. BUN 10. Creatinine 0.49. Glucose 125. Coronary virus by PCR not detected. Arterial blood gases on 55% FiO2 revealed a PaO2 of 163, pCO2 of 101 and a pH of 7.16. Placed on BiPAP 12/6 and decreased to 35% FiO2. He is seen today in consultation in the emergency department. He remains quite obtunded. He does withdraw to pain. Some inappropriate words. Opening his eyes to pain. Chest x-ray reveals mild cardiomegaly and chronic parenchymal changes without acute pulmonary process. CT of the brain revealed no acute intracranial process. Some non-specific white matter changes, likely secondary to chronic small vessel ischemic disease. The patient is seen today 09/28/2021 in follow-up in the intensive care unit. He remains obtunded but arousable. He had is continued on BiPAP 12/6 and 90% FiO2. He is requiring Precedex at 0.3 mcg/kg/h. He's on norepinephrine at 4 mcg/m. He is receiving 3% saline at 50 MLS per hour. His x-ray reveals persistent left lower lobe infiltrate/effusion with atelectasis of the right lower lobe. White count 82.9. Hemoglobin 13.0. Neutrophils 16.5. Lymphocytes 63. Monocytes 3.32. Sodium 120. Potassium 5.8. Chloride 86. BUN 24. Creatinine 1.16. Glucose 134. Calcium 8.2. Heparin for DVT prophylaxis. Protonix for GI prophylaxis. Objective - Vital Signs Vital signs: Vital Signs Temp 98 F 09/28/21 08:00 Pulse 90 09/28/21 10:00 Resp 28 H 09/28/21 10:00 BP 89/60 09/28/21 10:00 Pulse Ox 93 L 09/28/21 10:00 FiO2 90 09/28/21 10:00 Intake & Output 09/27/21 09/28/21 09/28/21 18:59 06:59 18:59 Intake Total 75 701.095 314.741 Output Total 120 1170 30 Balance -45 -468.905 284.741 Weight 76 kg 78.3 kg Intake: IV 75 625 150 Sodium Chloride 0.9% 1, 75 75 000 ml @ 75 mls/hr IV . [id number] [facility] Rx#:[id number] Sodium Chloride 3%( 550 150 Hypertonic) 500 ml @ 50 mls/hr IV .Q10H [facility] Rx#: [id number] Intake, IV Titration 76.095 164.741 Amount Calcium Gluconate in NaCl 100 1 gm In Saline 1 100ml. bag @ 100 mls/hr IVPB ONCE ONE Rx#:[id number] Dexmedetomidine/0.9% NaCl 76.095 44.713 (Pmx) 400 mcg In Empty Bag 1 bag @ 0.2 MCG/KG/HR 3.8 mls/hr IV .Q24H [facility] Rx#:[id number] Norepinephrine 4 mg In 20.028 Sodium Chloride 0.9% 250 ml @ 0.05 MCG/KG/MIN 14. 478 mls/hr IV .[id number] [facility] Rx#:[id number] Output: Urine 120 1170 30 Uretheral (Hebert) 80 320 Other: Voiding Method Indwelling Catheter Indwelling Catheter - Exam GENERAL EXAM: Obtunded, minimally responsive, 66-year-old male patient, on BiPAP 12/6 and 90% FiO2. HEAD: Normocephalic. EYES: Normal reaction of pupils, equal size. NOSE: Clear with pink turbinates. THROAT: No erythema or exudates. NECK: No masses, no JVD. CHEST: No chest wall deformity. LUNGS: Equal air entry with basilar crackles. CVS: S1 and S2 normal with no audible murmur, regular rhythm. ABDOMEN: No hepatosplenomegaly, normal bowel sounds, no guarding or rigidity. SPINE: No scoliosis or deformity SKIN: No rashes CENTRAL NERVOUS SYSTEM: Obtunded, tone is normal in all 4 extremities. EXTREMITIES: There is no peripheral edema. No clubbing, no cyanosis. Perip heral pulses are intact. - Labs CBC & Chem 7: 09/28/21 08:20 09/28/21 05:33 Labs: Abnormal Lab Results - Last 24 Hours (Table) 09/27/21 09/27/21 09/27/21 Range/Units 11:03 11:03 11:03 WBC 88.8 H* (3.8-10.6) k/uL RBC 4.16 L (4.30-5.90) m/uL Neutrophils # (Manual) 18.65 H (1.3-7.7) k/uL Lymphocytes # (Manual) 67.49 H (1.0-4.8) k/uL Monocytes # (Manual) 3.55 H (0-1.0) k/uL ABG pH (7.35-7.45) ABG pCO2 (35-45) mmHg ABG pO2 (83-108) mmHg ABG HCO3 (21-25) mmol/L ABG Total CO2 (19-24) mmol/L ABG O2 Saturation (94-97) % Sodium 116 L* (137-145) mmol/L Potassium (3.5-5.1) mmol/L Chloride 81 L (98-107) mmol/L Carbon Dioxide 34 H (22-30) mmol/L BUN (9-20) mg/dL Creatinine 0.49 L (0.66-1.25) mg/dL Glucose 125 H (74-99) mg/dL POC Glucose (mg/dL) (70-110) mg/dL Plasma Lactic Acid Abel 0.6 L (0.7-2.0) mmol/L Uric Acid (3.5-8.5) mg/dL Calcium 7.8 L (8.4-10.2) mg/dL Total Protein 6.0 L (6.3-8.2) g/dL 09/27/21 09/27/21 09/27/21 Range/Units 11:45 17:20 18:12 WBC (3.8-10.6) k/uL RBC (4.30-5.90) m/uL Neutrophils # (Manual) (1.3-7.7) k/uL Lymphocytes # (Manual) (1.0-4.8) k/uL Monocytes # (Manual) (0-1.0) k/uL ABG pH 7.16 L* (7.35-7.45) ABG pCO2 101 H* (35-45) mmHg ABG pO2 163 H (83-108) mmHg ABG HCO3 36 H (21-25) mmol/L ABG Total CO2 39 H (19-24) mmol/L ABG O2 Saturation 99.5 H (94-97) % Sodium 116 L* (137-145) mmol/L Potassium 5.9 H (3.5-5.1) mmol/L Chloride 79 L (98-107) mmol/L Carbon Dioxide 33 H (22-30) mmol/L BUN (9-20) mg/dL Creatinine 0.62 L (0.66-1.25) mg/dL Glucose 156 H (74-99) mg/dL POC Glucose (mg/dL) 151 H (70-110) mg/dL Plasma Lactic Acid Abel (0.7-2.0) mmol/L Uric Acid 3.4 L (3.5-8.5) mg/dL Calcium 8.3 L (8.4-10.2) mg/dL Total Protein (6.3-8.2) g/dL 09/27/21 09/28/21 09/28/21 Range/Units 23:47 00:21 05:33 WBC (3.8-10.6) k/uL RBC (4.30-5.90) m/uL Neutrophils # (Manual) (1.3-7.7) k/uL Lymphocytes # (Manual) (1.0-4.8) k/uL Monocytes # (Manual) (0-1.0) k/uL ABG pH (7.35-7.45) ABG pCO2 (35-45) mmHg ABG pO2 (83-108) mmHg ABG HCO3 (21-25) mmol/L ABG Total CO2 (19-24) mmol/L ABG O2 Saturation (94-97) % Sodium 118 L* 120 L (137-145) mmol/L Potassium (3.5-5.1) mmol/L Chloride (98-107) mmol/L Carbon Dioxide (22-30) mmol/L BUN (9-20) mg/dL Creatinine (0.66-1.25) mg/dL Glucose (74-99) mg/dL POC Glucose (mg/dL) 121 H (70-110) mg/dL Plasma Lactic Acid Abel (0.7-2.0) mmol/L Uric Acid (3.5-8.5) mg/dL Calcium (8.4-10.2) mg/dL Total Protein (6.3-8.2) g/dL 09/28/21 09/28/21 09/28/21 Range/Units 05:33 05:49 08:20 WBC 82.9 H* (3.8-10.6) k/uL RBC 4.26 L (4.30-5.90) m/uL Neutrophils # (Manual) 16.50 H (1.3-7.7) k/uL Lymphocytes # (Manual) 63.00 H (1.0-4.8) k/uL Monocytes # (Manual) 3.32 H (0-1.0) k/uL ABG pH (7.35-7.45) ABG pCO2 (35-45) mmHg ABG pO2 (83-108) mmHg ABG HCO3 (21-25) mmol/L ABG Total CO2 (19-24) mmol/L ABG O2 Saturation (94-97) % Sodium 120 L (137-145) mmol/L Potassium 5.8 H (3.5-5.1) mmol/L Chloride 86 L (98-107) mmol/L Carbon Dioxide (22-30) mmol/L BUN 24 H (9-20) mg/dL Creatinine (0.66-1.25) mg/dL Glucose 116 H (74-99) mg/dL POC Glucose (mg/dL) 134 H (70-110) mg/dL Plasma Lactic Acid Abel (0.7-2.0) mmol/L Uric Acid (3.5-8.5) mg/dL Calcium 8.2 L (8.4-10.2) mg/dL Total Protein (6.3-8.2) g/dL Assessment and Plan Assessment: Altered mental status secondary to acute on chronic hypercapnic respiratory failure and hyponatremia. Hyponatremia of unclear etiology. 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 Number of minutes spent on the visit: 10.
[2021-09-28 12:17] LABS: Calcium 8.4 mg/dL (8.4-10.2); Potassium 5.3 mmol/L (3.5-5.1)
[2021-09-28] MEDS: HYDROCORTISONE SUCCINATE 100 MG/2 ML VIAL IV SCH ×3 (12:17→23:42)
--- NOTE | 2021-09-28 15:15 | P.HPIM ---
History of Present Illness H&P Date: 09/27/21 Chief Complaint: Altered mental status Patient is a 66-year-old male with a known history of hypertension, hyperlipidemia, diabetes type 2, history of CVA with left hemiparesis, chronic hypercapnic respiratory failure, hyponatremia and mediastinal lymphadenopathy/lymphoma, schizophrenia and currently everyday smoker and a history of cocaine use was brought to ER by EMS. Patient's guardian noted that he was a little bit congested and shortness of breath is worse compared to yesterday and called EMS. Pulse ox was 88% on room air. Patient cannot provide any history at this time. Patient also developed altered mental status. Alert awake alert and oriented x3 at baseline. Chest x-ray showed mild cardiomegaly and chronic parenchymal changes without acute pulmonary process. CT head showed no acute intracranial process. Nonspecific white matter changes likely secondary to chronic small vessel ischemic disease. ABG showed pH 7.16 PCO2 101 PO2 163 and laboratory data showed WBC 88.8 hemoglobin 13.4 and platelets 251 Sodium 116 potassium 5.1 chloride 81 bicarb is 34 BUN 10 and creatinine 0.49 and lactic acid 0.6 calcium 7.8 and magnesium 1.9 liver enzymes are not elevated troponin x1 negative proBNP 4310 and coronavirus PCR not detected. Review of Systems Review of systems could not be obtained from the patient at this time. Past Medical History Past Medical History: COPD, CVA/TIA, Diabetes Mellitus, Hyperlipidemia, Hypertension, Pneumonia Additional Past Medical History / Comment(s): Previous history of CVA/L hemiparesis, NIDDM type II/diet controlled, chronic hypercapnic respiratory failure, previous aspiration pneumonia/vented, SIADH with severe hyponatremia, mediastinal lymphadenopathy/lymphoma, pansinusitis with possible mastoiditis on a CAT scan of the brain and MRI of the brain History of Any Multi-Drug Resistant Organisms: None Reported Past Surgical History: Orthopedic Surgery Additional Past Surgical History / Comment(s): sinus sx, lymph node biopsy Past Anesthesia/Blood Transfusion Reactions: No Reported Reaction Past Psychological History: Schizophrenia Additional Psychological History / Comment(s): Pt resides alone. He has Julien Guzmanradhachente as his legal guardian. Smoking Status: Current every day smoker Past Alcohol Use History: None Reported Past Drug Use History: Cocaine - Past Family History Father History Unknown: Yes Mother History Unknown: Yes Medications and Allergies Home Medications Medication Instructions Recorded Confirmed Type Acetaminophen Tab [Tylenol] 650 mg PO BID 09/27/21 09/27/21 History Cholecalciferol [Vitamin D3 (25 25 mcg PO DAILY 09/27/21 09/27/21 History Mcg = 1000 Iu)] Ketoconazole 2% Cream [Nizoral 2%] 1 applic TOPICAL DIRECTED 09/27/21 09/27/21 History Multivitamins, Thera [Multivitamin 1 tab PO DAILY 09/27/21 09/27/21 History (formulary)] Paliperidone IM [Invega Sustenna] 234 mg IM Q28D 09/27/21 09/27/21 History Allergies Allergy/AdvReac Type Severity Reaction Status Date / Time Sulfa (Sulfonamide Allergy Rash/Hives Verified 03/01/21 11:19 Antibiotics) Physical Exam Vitals: Vital Signs Temp Pulse Pulse Resp BP BP Pulse Ox 09/28/21 08:28 09/28/21 08:00 98 F 81 31 H 78/47 98 09/28/21 07:51 09/28/21 07:00 90 28 H 86/51 96 09/28/21 06:00 98.4 F 125 H 31 H 101/52 97 09/28/21 05:00 100 33 H 94/64 95 09/28/21 04:00 99.6 F 84 29 H 84/57 94 L 09/28/21 03:28 09/28/21 03:00 81 28 H 86/59 95 09/28/21 02:00 87 29 H 81/59 96 09/28/21 01:00 80 29 H 85/57 95 09/28/21 00:00 99.3 F 78 27 H 88/63 96 09/27/21 23:19 09/27/21 23:00 83 32 H 98/68 89 L 09/27/21 22:21 84 31 H 95/71 87 L 09/27/21 22:00 89 36 H 101/68 88 L 09/27/21 21:00 97 35 H 112/69 87 L 09/27/21 20:16 09/27/21 20:04 97.8 F 97 40 H 128/93 09/27/21 20:00 97.8 F 96 40 H 135/90 95 09/27/21 19:10 98 36 H 95 09/27/21 19:00 101 H 38 H 138/98 94 L 07/15/22 18:50 95 27 H 93 L 09/27/21 18:40 104 H 36 H 85 L 09/27/21 18:30 104 H 40 H 127/84 84 L 09/27/21 18:20 106 H 42 H 83 L 09/27/21 18:10 107 H 37 H 144/106 83 L 09/27/21 18:00 112 H 41 H 147/99 81 L 09/27/21 17:52 09/27/21 17:50 112 H 37 H 78 L 09/27/21 17:40 109 H 44 H 147/99 77 L 09/27/21 17:30 99.2 F 108 H 157/103 96 09/27/21 17:15 09/27/21 17:01 98 26 H 154/89 88 L 09/27/21 16:00 78 18 122/77 94 L 09/27/21 15:30 09/27/21 14:38 79 20 116/78 96 09/27/21 14:25 09/27/21 13:41 80 20 100/73 93 L 09/27/21 12:36 90 27 H 106/74 90 L 09/27/21 12:00 95 18 105/78 91 L 09/27/21 11:57 09/27/21 11:27 108 H 09/27/21 11:11 26 H 09/27/21 11:02 98.4 F 106 H 26 H 157/131 99 FiO2 09/28/21 08:28 90 09/28/21 08:00 100 09/28/21 07:51 100 09/28/21 07:00 100 09/28/21 06:00 09/28/21 05:00 100 09/28/21 04:00 100 09/28/21 03:28 100 09/28/21 03:00 100 09/28/21 02:00 09/28/21 01:00 09/28/21 00:00 100 09/27/21 23:19 100 09/27/21 23:00 09/27/21 22:21 09/27/21 22:00 09/27/21 21:00 100 09/27/21 20:16 100 09/27/21 20:04 100 09/27/21 20:00 100 09/27/21 19:10 09/27/21 19:00 09/27/21 18:50 09/27/21 18:40 09/27/21 18:30 100 09/27/21 18:20 100 09/27/21 18:10 100 09/27/21 18:00 09/27/21 17:52 09/27/21 17:50 100 09/27/21 17:40 100 09/27/21 17:30 60 09/27/21 17:15 60 09/27/21 17:01 09/27/21 16:00 09/27/21 15:30 40 09/27/21 14:38 09/27/21 14:25 40 09/27/21 13:41 09/27/21 12:36 09/27/21 12:00 09/27/21 11:57 30 09/27/21 11:27 09/27/21 11:11 09/27/21 11:02 Intake and Output 09/27/21 09/28/21 09/28/21 22:59 06:59 14:59 Intake Total 306.460 469.635 104.101 Output Total 595 695 10 Balance -288.540 -225.365 94.101 Intake: IV 300 400 50 Sodium Chloride 0.9% 1, 150 000 ml @ 75 mls/hr IV . [id number] [facility] Rx#:[id number] Sodium Chloride 3%( 150 400 50 Hypertonic) 500 ml @ 50 mls/hr IV .Q10H [facility] Rx#: [id number] Intake, IV Titration 6.460 69.635 54.101 Amount Dexmedetomidine/0.9% NaCl 6.460 69.635 34.073 (Pmx) 400 mcg In Empty Bag 1 bag @ 0.2 MCG/KG/HR 3.8 mls/hr IV .Q24H [facility] Rx#:[id number] Norepinephrine 4 mg In 20.028 Sodium Chloride 0.9% 250 ml @ 0.05 MCG/KG/MIN 14. 478 mls/hr IV .[id number] [facility] Rx#:[id number] Output: Urine 595 695 10 Uretheral (Hebert) 160 240 Other: Voiding Method Indwelling Catheter Indwelling Catheter Weight 78.3 kg PHYSICAL EXAMINATION: Patient is lying in the bed. Obtunded., no acute distress. HEENT: Normocepha lic. Neck is supple. Pupils reactive. Nostrils clear. Oral cavity is moist. Neck reveals no JVD, carotid bruits, or thyromegaly. CHEST EXAMINATION: Trachea is central. Symmetrical expansion. Bibasilar diminished sounds. Scattered coarse sounds.. CARDIAC: Normal S1, S2 with no gallops. No murmurs ABDOMEN: Soft. Bowel sounds present. Nontender. No organomegaly. No abdominal bruits. Extremities: reveal no edema. No clubbing or cyanosis Neurologically. Patient is obtunded but arousable. No gross focal deficits noted Skin: No rash or skin lesions. Psychiatric: Could not be assessed at this time.. Musculoskeletal: No joint swelling or deformity. Results CBC & Chem 7: 09/28/21 08:20 09/28/21 20:08 Labs: Abnormal Lab Results - Last 24 Hours (Table) 09/27/21 09/27/21 09/27/21 Range/Units 11:03 11:03 11:03 WBC 88.8 H* (3.8-10.6) k/uL RBC 4.16 L (4.30-5.90) m/uL Neutrophils # (Manual) 18.65 H (1.3-7.7) k/uL Lymphocytes # (Manual) 67.49 H (1.0-4.8) k/uL Monocytes # (Manual) 3.55 H (0-1.0) k/uL ABG pH (7.35-7.45) ABG pCO2 (35-45) mmHg ABG pO2 (83-108) mmHg ABG HCO3 (21-25) mmol/L ABG Total CO2 (19-24) mmol/L ABG O2 Saturation (94-97) % Sodium 116 L* (137-145) mmol/L Potassium (3.5-5.1) mmol/L Chloride 81 L (98-107) mmol/L Carbon Dioxide 34 H (22-30) mmol/L BUN (9-20) mg/dL Creatinine 0.49 L (0.66-1.25) mg/dL Glucose 125 H (74-99) mg/dL POC Glucose (mg/dL) (70-110) mg/dL Plasma Lactic Acid Abel 0.6 L (0.7-2.0) mmol/L Uric Acid (3.5-8.5) mg/dL Calcium 7.8 L (8.4-10.2) mg/dL Total Protein 6.0 L (6.3-8.2) g/dL 09/27/21 09/27/21 09/27/21 Range/Units 11:45 17:20 18:12 WBC (3.8-10.6) k/uL RBC (4.30-5.90) m/uL Neutrophils # (Manual) (1.3-7.7) k/uL Lymphocytes # (Manual) (1.0-4.8) k/uL Monocytes # (Manual) (0-1.0) k/uL ABG pH 7.16 L* (7.35-7.45) ABG pCO2 101 H* (35-45) mmHg ABG pO2 163 H (83-108) mmHg ABG HCO3 36 H (21-25) mmol/L ABG Total CO2 39 H (19-24) mmol/L ABG O2 Saturation 99.5 H (94-97) % Sodium 116 L* (137-145) mmol/L Potassium 5.9 H (3.5-5.1) mmol/L Chloride 79 L (98-107) mmol/L Carbon Dioxide 33 H (22-30) mmol/L BUN (9-20) mg/dL Creatinine 0.62 L (0.66-1.25) mg/dL Glucose 156 H (74-99) mg/dL POC Glucose (mg/dL) 151 H (70-110) mg/dL Plasma Lactic Acid Abel (0.7-2.0) mmol/L Uric Acid 3.4 L (3.5-8.5) mg/dL Calcium 8.3 L (8.4-10.2) mg/dL Total Protein (6.3-8.2) g/dL 09/27/21 09/28/21 09/28/21 Range/Units 23:47 00:21 05:33 WBC (3.8-10.6) k/uL RBC (4.30-5.90) m/uL Neutrophils # (Manual) (1.3-7.7) k/uL Lymphocytes # (Manual) (1.0-4.8) k/uL Monocytes # (Manual) (0-1.0) k/uL ABG pH (7.35-7.45) ABG pCO2 (35-45) mmHg ABG pO2 (83-108) mmHg ABG HCO3 (21-25) mmol/L ABG Total CO2 (19-24) mmol/L ABG O2 Saturation (94-97) % Sodium 118 L* 120 L (137-145) mmol/L Potassium (3.5-5.1) mmol/L Chloride (98-107) mmol/L Carbon Dioxide (22-30) mmol/L BUN (9-20) mg/dL Creatinine (0.66-1.25) mg/dL Glucose (74-99) mg/dL POC Glucose (mg/dL) 121 H (70-110) mg/dL Plasma Lactic Acid Abel (0.7-2.0) mmol/L Uric Acid (3.5-8.5) mg/dL Calcium (8.4-10.2) mg/dL Total Protein (6.3-8.2) g/dL 09/28/21 09/28/21 09/28/21 Range/Units 05:33 05:49 08:20 WBC 82.9 H* (3.8-10.6) k/uL RBC 4.26 L (4.30-5.90) m/uL Neutrophils # (Manual) (1.3-7.7) k/uL Lymphocytes # (Manual) (1.0-4.8) k/uL Monocytes # (Manual) (0-1.0) k/uL ABG pH (7.35-7.45) ABG pCO2 (35-45) mmHg ABG pO2 (83-108) mmHg ABG HCO3 (21-25) mmol/L ABG Total CO2 (19-24) mmol/L ABG O2 Saturation (94-97) % Sodium 120 L (137-145) mmol/L Potassium 5.8 H (3.5-5.1) mmol/L Chloride 86 L (98-107) mmol/L Carbon Dioxide (22-30) mmol/L BUN 24 H (9-20) mg/dL Creatinine (0.66-1.25) mg/dL Glucose 116 H (74-99) mg/dL POC Glucose (mg/dL) 134 H (70-110) mg/dL Plasma Lactic Acid Abel (0.7-2.0) mmol/L Uric Acid (3.5-8.5) mg/dL Calcium 8.2 L (8.4-10.2) mg/dL Total Protein (6.3-8.2) g/dL Thrombosis Risk Factor Assmnt - DVT/VTE Prophylaxis DVT/VTE Prophylaxis: Pharmacologic Prophylaxis ordered - Choose All That Apply Any of the Below Risk Factors Present?: Yes Each Factor Represents 1 point: Abnormal pulmonary function (COPD), Medical pt o n bed rest, Obesity (BMI >25) Other Risk Factors: Yes Each Risk Factor Represents 2 Points: Age 61-74 years Other congenital or acquired thrombophilia - If yes, enter type in comment: No Thrombosis Risk Factor Assessment Total Risk Factor Score: 5 Thrombosis Risk Factor Assessment Level: High Risk Assessment and Plan Assessment: Altered mental status due to metabolic encephalopathy and hypoxic and hypercapnic respiratory failure. Hyponatremia with sodium level 116 on admission possible SIADH and also on currently on Risperdal and Prozac. 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 Hypertension Diabetes type 2 COPD Chronic hypercapnic respiratory failure on home oxygen Schizophrenia History of incarceration Ongoing nicotine addiction History of cocaine use Previous hospitalization with aspiration pneumonia and VDRF DVT prophylaxis with heparin subcu CODE STATUS DNR/DNI Plan: Patient is currently in the ER and is obtained and could not provide any history. On BiPAP currently. Continues IV hydration and nephrology was consulted due to severe hyponatremia. Insulin sliding scale and patient was seen by pulmonary and is recommending MICU transfer for further management. Prognosis is guarded at this time. Time with Patient: Greater than 30
[2021-09-28 17:51] LABS: Glucose,Whole Blood 115 mg/dL (70-110)
[2021-09-28 20:45] LABS: Potassium 5.2 mmol/L (3.5-5.1)
--- NOTE | 2021-09-28 22:02 | P.PN ---
Subjective Progress Note Date: 09/28/21 Patient is a 66-year-old male with a known history of hypertension, hyperlipidemia, diabetes type 2, history of CVA with left hemiparesis, chronic hypercapnic respiratory failure, hyponatremia and mediastinal lymphadenopathy/lymphoma, schizophrenia and currently everyday smoker and a history of cocaine use was brought to ER by EMS. Patient's guardian noted that he was a little bit congested and shortness of breath is worse compared to yesterday and called EMS. Pulse ox was 88% on room air. Patient cannot provide any history at this time. Patient also developed altered mental status. Alert awake alert and oriented x3 at baseline. Chest x-ray showed mild cardiomegaly and chronic parenchymal changes without acute pulmonary process. CT head showed no acute intracranial process. Nonspecific white matter changes likely secondary to chronic small vessel ischemic disease. ABG showed pH 7.16 PCO2 101 PO2 163 and laboratory data showed WBC 88.8 hemoglobin 13.4 and platelets 251 Sodium 116 potassium 5.1 chloride 81 bicarb is 34 BUN 10 and creatinine 0.49 and lactic acid 0.6 calcium 7.8 and magnesium 1.9 liver enzymes are not elevated troponin x1 negative proBNP 4310 and coronavirus PCR not detected. 09/28/2021 Patient is currently in the MICU. Patient is being continued on BiPAP with FiO2 90%. Currently on norepinephrine drip and also requiring Precedex. Patient is able to open his eyes with verbal stimuli. Could not communicate. Chest x-ray showed persistent left lower lobe infiltrate and/or effusion as well as discoid atelectasis right lower lobe. Patient is being continued on normal saline at 75 cc/h. Was started on hypertonic saline as per nephrology recommendations. Laboratory showed sodium improved to 125, potassium 5.3 chloride 89 bicarb is 31 BUN 28 and creatinine 1.61. Cortisol level is 44. WBC 2.9 hemoglobin 13.0 and platelets 286. Lymphocytes 63. Pulmonary, nephrology and oncology is on board. Current medications reviewed. Objective - Vital Signs Vital signs: Vital Signs Temp 98.2 F 09/28/21 12:00 Pulse 91 09/28/21 15:00 Resp 26 H 09/28/21 15:00 BP 90/53 09/28/21 15:00 Pulse Ox 97 09/28/21 15:00 FiO2 85 09/28/21 15:00 Intake & Output 0709/28/21 09/28/21 18:59 06:59 18:59 Intake Total 75 701.095 586.210 Output Total 120 1170 100 Balance -45 -468.905 486.210 Weight 76 kg 78.3 kg Intake: IV 75 625 360 Sodium Chloride 0.9% 1, 75 75 000 ml @ 75 mls/hr IV . [id number] [facility] Rx#:[id number] Sodium Chloride 3%( 550 360 Hypertonic) 500 ml @ 30 mls/hr IV .[id number] [facility] Rx #:[id number] Intake, IV Titration 76.095 226.210 Amount Calcium Gluconate in NaCl 100 1 gm In Saline 1 100ml. bag @ 100 mls/hr [facility]PB ONCE [facility] Rx#:[id number] Dexmedetomidine/0.9% NaCl 76.095 51.743 (Pmx) 400 mcg In Empty Bag 1 bag @ 0.2 MCG/KG/HR 3.8 mls/hr IV .Q24H [facility] Rx#:[id number] Norepinephrine 4 mg In 74.467 Sodium Chloride 0.9% 250 ml @ 0.05 MCG/KG/MIN 14. 478 mls/hr IV .[id number] [facility] Rx#:[id number] Output: Urine 120 1170 100 Uretheral (Hebert) 80 320 Other: Voiding Method Indwelling Catheter Indwelling Catheter - Exam PHYSICAL EXAMINATION: Patient is lying in the bed. Obtunded., no acute distress. HEENT: Normocephalic. Neck is supple. Pupils reactive. Nostrils clear. Oral cavity is moist. Neck reveals no JVD, carotid bruits, or thyromegaly. CHEST EXAMINATION: Trachea is central. Symmetrical expansion. Bibasilar diminished sounds. Scattered coarse sounds.. CARDIAC: Normal S1, S2 with no gallops. No murmurs ABDOMEN: Soft. Bowel sounds present. Nontender. No organomegaly. No abdominal bruits. Extremities: reveal no edema. No clubbing or cyanosis Neurologically. Patient is obtunded but arousable. No gross focal deficits noted Skin: No rash or skin lesions. Psychiatric: Could not be assessed at this time.. Musculoskeletal: No joint swelling or deformity. - Labs CBC & Chem 7: 09/28/21 08:20 09/28/21 20:08 Labs: Abnormal Lab Results - Last 24 Hours (Table) 09/27/21 09/27/21 09/27/21 Range/Units 17:20 18:12 23:47 WBC (3.8-10.6) k/uL RBC (4.30-5.90) m/uL Neutrophils # (Manual) (1.3-7.7) k/uL Lymphocytes # (Manual) (1.0-4.8) k/uL Monocytes # (Manual) (0-1.0) k/uL Sodium 116 L* (137-145) mmol/L Potassium 5.9 H (3.5-5.1) mmol/L Chloride 79 L (98-107) mmol/L Carbon Dioxide 33 H (22-30) mmol/L BUN (9-20) mg/dL Creatinine 0.62 L (0.66-1.25) mg/dL Glucose 156 H (74-99) mg/dL POC Glucose (mg/dL) 151 H 121 H (70-110) mg/dL Uric Acid 3.4 L (3.5-8.5) mg/dL Calcium 8.3 L (8.4-10.2) mg/dL 09/28/21 09/28/21 09/28/21 Range/Units 00:21 05:33 05:33 WBC (3.8-10.6) k/uL RBC (4.30-5.90) m/uL Neutrophils # (Manual) (1.3-7.7) k/uL Lymphocytes # (Manual) (1.0-4.8) k/uL Monocytes # (Manual) (0-1.0) k/uL Sodium 118 L* 120 L 120 L (137-145) mmol/L Potassium 5.8 H (3.5-5.1) mmol/L Chloride 86 L (98-107) mmol/L Carbon Dioxide (22-30) mmol/L BUN 24 H (9-20) mg/dL Creatinine (0.66-1.25) mg/dL Glucose 116 H (74-99) mg/dL POC Glucose (mg/dL) (70-110) mg/dL Uric Acid (3.5-8.5) mg/dL Calcium 8.2 L (8.4-10.2) mg/dL 09/28/21 09/28/2122 Range/Units 05:49 08:20 11:48 WBC 82.9 H* (3.8-10.6) k/uL RBC 4.26 L (4.30-5.90) m/uL Neutrophils # (Manual) 16.50 H (1.3-7.7) k/uL Lymphocytes # (Manual) 63.00 H (1.0-4.8) k/uL Monocytes # (Manual) 3.32 H (0-1.0) k/uL Sodium 125 L (137-145) mmol/L Potassium 5.3 H (3.5-5.1) mmol/L Chloride 89 L (98-107) mmol/L Carbon Dioxide 31 H (22-30) mmol/L BUN 28 H (9-20) mg/dL Creatinine 1.61 H (0.66-1.25) mg/dL Glucose 100 H (74-99) mg/dL POC Glucose (mg/dL) 134 H (70-110) mg/dL Uric Acid (3.5-8.5) mg/dL Calcium (8.4-10.2) mg/dL Assessment and Plan Assessment: Altered mental status due to metabolic encephalopathy and hypoxic and hypercapnic respiratory failure. Hyponatremia with sodium level 116 on admission Improving with hypertonic saline.Etiology unclear. 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 Hypertension. currently Hypotensive. Diabetes type 2 COPD Chronic hypercapnic respiratory failure on home oxygen Schizophrenia History of incarceration Ongoing nicotine addiction History of cocaine use Previous hospitalization with aspiration pneumonia and VDRF DVT prophylaxis with heparin subcu CODE STATUS DNR/DNI Plan: Patient is on BiPAP and also requiring pressor support and Precedex. Continues IV hydration and nephrology was consulted due to severe hyponatremia. Started on hypertonic saline. Sodium level is improving. Patient was also given hydrocortisone due to hypotension and hyponatremia, hyperkalemia. Continue with insulin sliding scale and psychiatric medications on hold currently.. Prognosis is guarded at this time. Time with Patient: Greater than 30
[2021-09-28 23:55] LABS: Glucose,Whole Blood 109 mg/dL (70-110)
[2021-09-29] MEDS: NOREPINEPHRINE 4 MG in SODIUM CHLORIDE 0.9% 250 ML IV SCH ×3 (02:30→10:29)
[2021-09-29] MEDS: DEXMEDETOMIDINE/0.9% NACL(PMX) 400 MCG in EMPTY BAG 1 BAG IV SCH ×2 (03:22→12:50)
[2021-09-29] MEDS: SODIUM CHLORIDE 0.9% 1,000 ML IV SCH (04:54)
[2021-09-29] MEDS: HYDROCORTISONE SUCCINATE 100 MG/2 ML VIAL IV SCH ×4 (05:19→23:59)
[2021-09-29 05:28] LABS: Glucose,Whole Blood 131 mg/dL (70-110)
[2021-09-29 05:40] LABS: Phosphorus 4.9 mg/dL (2.5-4.5); Uric Acid 6.4 mg/dL (3.5-8.5)
[2021-09-29 06:20] LABS: African American GFR (CKD) >90 (>60 ml/min/1.73 sqM); Anion Gap 6 mmol/L; Blood Urea Nitrogen 33 mg/dL (9-20); Calcium 8.7 mg/dL (8.4-10.2); Carbon Dioxide 25 mmol/L (22-30); Chloride 101 mmol/L (98-107); Glucose 133 mg/dL (74-99); Non-African American GFR(CKD) 80 (>60 ml/min/1.73 sqM); Sodium 132 mmol/L (137-145)
[2021-09-29 06:28] LABS: Potassium 6.6 mmol/L (3.5-5.1)
[2021-09-29] MEDS ORDERED: DEXTROSE 50% SYRINGE 50 ML IVP STA (06:44)
[2021-09-29] MEDS ORDERED: FUROSEMIDE 10 MG/ML 4 ML VIAL IV STA (06:47)
[2021-09-29] MEDS ORDERED: INSULIN REGULAR 100 UNIT/ML VIAL (IV) IV ONE (06:59)
[2021-09-29] MEDS ORDERED: SODIUM POLYSTYRENE SULFONATE 30 GM/120 ML BOTTLE RECTAL STA (07:13)
[2021-09-29] MEDS ORDERED: SODIUM POLYSTYRENE SULFONATE 30 GM/120 ML BOTTLE RECTAL ONE (08:00)
[2021-09-29 08:07] LABS: African American GFR (CKD) >90 (>60 ml/min/1.73 sqM); Anion Gap 1 mmol/L; Blood Urea Nitrogen 30 mg/dL (9-20); Calcium 8.3 mg/dL (8.4-10.2); Carbon Dioxide 33 mmol/L (22-30); Chloride 99 mmol/L (98-107); Glucose 179 mg/dL (74-99); Non-African American GFR(CKD) 83 (>60 ml/min/1.73 sqM); Potassium 4.8 mmol/L (3.5-5.1); Sodium 133 mmol/L (137-145)
[2021-09-29] MEDS: HEPARIN SODIUM,PORCINE/PF 5,000 UNIT/0.5 ML SYRINGE SQ SCH ×3 (08:14→23:59)
[2021-09-29] MEDS: PANTOPRAZOLE 40 MG/10 ML VIAL IVP SCH (08:14)
[2021-09-29] MEDS ORDERED: HALOPERIDOL LACTATE 5 MG/ML 1 ML VIAL IM PRN (09:37)
[2021-09-29] MEDS: SODIUM CHLORIDE 3%(HYPERTONIC) 500 ML IV SCH (09:39)
[2021-09-29] MEDS ORDERED: SODIUM CHLORIDE 0.9% 1,000 ML IV SCH (09:45)
--- NOTE | 2021-09-29 10:49 | P.PN ---
Subjective Progress Note Date: 09/29/21 Principal diagnosis: Hypercapnia, altered mental status This is a 66-year-old male patient who has a history of schizophrenia currently on Invega, previous ventilatory dependent aspiration pneumonia, previous severe hyponatremia with SIADH, chronic obstructive pulmonary disease, hypertension, hyperlipidemia, lymphoma diagnosed in August 2019, chronic tobacco dependence. Yesterday his in process inspector found him to be short of breath with some cough and congestion. Today his room air oxygen reading was 88% and EMS was called. He did develop altered mental status. Normally he is A and O 3. In the emergency room he was quite obtunded. No response to sternal rub or painful stimulation. White count 88.8. Hemoglobin 13.4. Platelets 251. INR 1.0. Sodium 116. Potassium 5.1. Bicarb 34. BUN 10. Creatinine 0.49. Glucose 125. Coronary virus by PCR not detected. Arterial blood gases on 55% FiO2 revealed a PaO2 of 163, pCO2 of 101 and a pH of 7.16. Placed on BiPAP 12/6 and decreased to 35% FiO2. He is seen today in consultation in the emergency department. He remains quite obtunded. He does withdraw to pain. Some inappropriate words. Opening his eyes to pain. Chest x-ray reveals mild cardiomegaly and chronic parenchymal changes without acute pulmonary process. CT of the brain revealed no acute intracranial process. Some non-specific white matter changes, likely secondary to chronic small vessel ischemic disease. The patient is seen today 09/28/2021 in follow-up in the intensive care unit. He remains obtunded but arousable. He had is continued on BiPAP 12/6 and 90% FiO2. He is requiring Precedex at 0.3 mcg/kg/h. He's on norepinephrine at 4 mcg/m. He is receiving 3% saline at 50 MLS per hour. His x-ray reveals persistent left lower lobe infiltrate/effusion with atelectasis of the right lower lobe. White count 82.9. Hemoglobin 13.0. Neutrophils 16.5. Lymphocytes 63. Monocytes 3.32. Sodium 120. Potassium 5.8. Chloride 86. BUN 24. Creatinine 1.16. Glucose 134. Calcium 8.2. Heparin for DVT prophylaxis. Protonix for GI prophylaxis. The patient is seen today 09/29/2021 in follow-up in the intensive care unit. He is currently on BiPAP 12/6 and 60% FiO2. He remains on norepinephrine at 6.7 mcg/m. Precedex at 0.6 mcg/kg/h. He is more awake and alert today. Sodium 133. Potassium 4.8. Bicarb 33. BUN 30. Creatinine 0.97. Calcium 8.3. Glucose 179. Hypertonic saline had been discontinued. He is currently on Solu Cortef 100 mg IV every 6 hours, was given Lasix 40 mg IVP 1. On heparin for DVT prophylaxis. Objective - Vital Signs Vital signs: Vital Signs Temp 97.7 F 09/29/21 08:00 Pulse 82 09/29/21 10:15 Resp 26 H 09/29/21 10:15 BP 102/62 09/29/21 10:15 Pulse Ox 97 09/29/21 10:31 FiO2 60 09/29/21 10:00 Intake & Output 09/28/21 09/29/21 09/29/21 18:59 06:59 18:59 Intake Total 700.099 7900.903 629.500 Output Total 300 1555 1475 Balance 550.503 -479.097 -845.500 Weight 83.6 kg Intake: IV 470 390 400 .9 KVO 110 Sodium Chloride 0.9% 1, 400 000 ml @ 100 mls/hr IV . Q10H [facility] Rx#:[id number] Sodium Chloride 3%( 470 280 Hypertonic) 500 ml @ 40 mls/hr IV .[id number] [facility] Rx #:[id number] Intake, IV Titration 380.503 685.903 229.500 Amount Calcium Gluconate in NaCl 100 1 gm In Saline 1 100ml. bag @ 100 mls/hr IVPB ONCE ONE Rx#:[id number] Dexmedetomidine/0.9% NaCl 90.503 98.860 77.963 (Pmx) 400 mcg In Empty Bag 1 bag @ 0.2 MCG/KG/HR 3.8 mls/hr IV .Q24H [facility] Rx#:[id number] Norepinephrine 4 mg In 190.000 587.043 151.537 Sodium Chloride 0.9% 250 ml @ 0.05 MCG/KG/MIN 14. 478 mls/hr IV .[id number] [facility] Rx#:[id number] Output: Urine 300 1555 1475 Other: Voiding Method Indwelling Catheter Indwelling Catheter Indwelling Catheter - Exam GENERAL EXAM: Awake, more alert today, 66-year-old male patient, on BiPAP 12/6 and 60% FiO2. HEAD: Normocephalic. EYES: Normal reaction of pupils, equal size. NOSE: Clear with pink turbinates. THROAT: No erythema or exudates. NECK: No masses, no JVD. CHEST: No chest wall deformity. LUNGS: Equal air entry with basilar crackles. CVS: S1 and S2 normal with no audible murmur, regular rhythm. ABDOMEN: No hepatosplenomegaly, normal bowel sounds, no guarding or rigidity. SPINE: No scoliosis or deformity SKIN: No rashes CENTRAL NERVOUS SYSTEM: Arousable, tone is normal in all 4 extremities. EXTREMITIES: There is no peripheral edema. No clubbing, no cyanosis. Peripheral pulses are intact. - Labs CBC & Chem 7: 09/28/21 08:20 09/29/21 07:45 Labs: Abnormal Lab Results - Last 24 Hours (Table) 09/28/21 09/28/21 09/28/21 Range/Units 11:48 16:03 16:03 Sodium 125 L 125 L (137-145) mmol/L Potassium 5.3 H 5.8 H (3.5-5.1) mmol/L Chloride 89 L (98-107) mmol/L Carbon Dioxide 31 H (22-30) mmol/L BUN 28 H (9-20) mg/dL Creatinine 1.61 H (0.66-1.25) mg/dL Glucose 100 H (74-99) mg/dL POC Glucose (mg/dL) (70-110) mg/dL Calcium (8.4-10.2) mg/dL Phosphorus (2.5-4.5) mg/dL 09/28/21 09/28/21 09/29/21 Range/Units 17:49 20:08 00:18 Sodium 127 L 129 L (137-145) mmol/L Potassium 5.2 H (3.5-5.1) mmol/L Chloride (98-107) mmol/L Carbon Dioxide (22-30) mmol/L BUN (9-20) mg/dL Creatinine (0.66-1.25) mg/dL Glucose (74-99) mg/dL POC Glucose (mg/dL) 115 H (70-110) mg/dL Calcium (8.4-10.2) mg/dL Phosphorus (2.5-4.5) mg/dL 09/29/21 09/29/21 09/29/21 Range/Units 04:53 04:53 05:25 Sodium 129 L 132 L (137-145) mmol/L Potassium 6.6 H* (3.5-5.1) mmol/L Chloride (98-107) mmol/L Carbon Dioxide (22-30) mmol/L BUN 33 H (9-20) mg/dL Creatinine (0.66-1.25) mg/dL Glucose 133 H (74-99) mg/dL POC Glucose (mg/dL) 131 H (70-110) mg/dL Calcium (8.4-10.2) mg/dL Phosphorus 4.9 H (2.5-4.5) mg/dL 09/29/21 Range/Units 07:45 Sodium 133 L (137-145) mmol/L Potassium (3.5-5.1) mmol/L Chloride (98-107) mmol/L Carbon Dioxide 33 H (22-30) mmol/L BUN 30 H (9-20) mg/dL Creatinine (0.66-1.25) mg/dL Glucose 179 H (74-99) mg/dL POC Glucose (mg/dL) (70-110) mg/dL Calcium 8.3 L (8.4-10.2) mg/dL Phosphorus (2.5-4.5) mg/dL Assessment and Plan Assessment: Altered mental status secondary to acute on chronic hypercapnic respiratory failure and hyponatremia. Hyponatremia of unclear etiology. 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 Number of minutes spent on the visit: 10.
--- NOTE | 2021-09-29 11:08 | P.PN ---
Subjective Progress Note Date: 09/29/21 Principal diagnosis: This is a 66-year-old male seen in consultation because of severe hyponatremia sodium was 116 was confused. This again to be from SIADH and he was started and 20% saline. Additionally yesterday he became hypotensive cause not very clear. He was started on levo fed. In the meantime he'll remain on BiPAP. Sodium has been slowly improving. Is now on 133. 3% saline was discontinued last night. His potassium was reported to be 6.6 earlier this morning but it may be an error as her potassium is 4.8. He was treated D50 and insulin 8 units as well as Lasix. This morning he is more awake and alert and responds and follows commands. Sodium is 133 creatinine 0.97 glucose is 179. His past history significant for CLL/SLL, has refused to be followed up. In August 2019, he was seen with persistent leucoytosis, with lymphocytosis predominant. CT chest in 05/05 showed subcarinal adenoapthy, prominent axillary, shotty medistinal and hilar nodes. CT AP in 09/02 had shown elarged retroperitoneal nodes. HE had a US guided L neck node bx, positive for SLL/CLL. Surprisingly peripheral blood flow was negative. He did not show up for follow- up Further he is known with history of diabetes mellitus previous CVA with left hemiparesis history of SIADH Objective - Vital Signs Vital signs: Vital Signs Temp 97.7 F 09/29/21 08:00 Pulse 82 09/29/21 10:15 Resp 26 H 09/29/21 10:15 BP 102/62 09/29/21 10:15 Pulse Ox 97 09/29/21 10:31 FiO2 60 09/29/21 10:00 Intake & Output 09/28/21 09/29/21 09/29/21 18:59 06:59 18:59 Intake Total 509.719 6864.903 629.500 Output Total 300 1555 1475 Balance 550.503 -479.097 -845.500 Weight 83.6 kg Intake: IV 470 390 400 .9 KVO 110 Sodium Chloride 0.9% 1, 400 000 ml @ 100 mls/hr IV . Q10H [facility] Rx#:[id number] Sodium Chloride 3%( 470 280 Hypertonic) 500 ml @ 40 mls/hr IV .[id number] [facility] Rx #:[id number] Intake, IV Titration 380.503 685.903 229.500 Amount Calcium Gluconate in NaCl 100 1 gm In Saline 1 100ml. bag @ 100 mls/hr IVPB ONCE ONE Rx#:[id number] Dexmedetomidine/0.9% NaCl 90.503 98.860 77.963 (Pmx) 400 mcg In Empty Bag 1 bag @ 0.2 MCG/KG/HR 3.8 mls/hr IV .Q24H [facility] Rx#:[id number] Norepinephrine 4 mg In 190.000 587.043 151.537 Sodium Chloride 0.9% 250 ml @ 0.05 MCG/KG/MIN 14. 478 mls/hr IV .[id number] [facility] Rx#:[id number] Output: Urine 300 1555 1475 Other: Voiding Method Indwelling Catheter Indwelling Catheter Indwelling Catheter On examination this morning he is much more alert and awake follows commands A chin exam no JVP neck is supple no facial asymmetry pupils are equal Lungs are clear to auscultation with some harsh breath sounds. Heart sounds are unremarkable for any murmur rub gallop Abdomen soft nontender Extremity exam was trace edema Neurologically awake alert but unable to answer questions but follows commands - Labs CBC & Chem 7: 09/28/21 08:20 09/29/21 07:45 Labs: Abnormal Lab Results - Last 24 Hours (Table) 09/28/21 09/28/21 09/28/21 Range/Units 11:48 16:03 16:03 Sodium 125 L 125 L (137-145) mmol/L Potassium 5.3 H 5.8 H (3.5-5.1) mmol/L Chloride 89 L (98-107) mmol/L Carbon Dioxide 31 H (22-30) mmol/L BUN 28 H (9-20) mg/dL Creatinine 1.61 H (0.66-1.25) mg/dL Glucose 100 H (74-99) mg/dL POC Glucose (mg/dL) (70-110) mg/dL Calcium (8.4-10.2) mg/dL Phosphorus (2.5-4.5) mg/dL 09/28/21 09/28/21 09/29/21 Range/Units 17:49 20:08 00:18 Sodium 127 L 129 L (137-145) mmol/L Potassium 5.2 H (3.5-5.1) mmol/L Chloride (98-107) mmol/L Carbon Dioxide (22-30) mmol/L BUN (9-20) mg/dL Creatinine (0.66-1.25) mg/dL Glucose (74-99) mg/dL POC Glucose (mg/dL) 115 H (70-110) mg/dL Calcium (8.4-10.2) mg/dL Phosphorus (2.5-4.5) mg/dL 09/29/21 09/29/21 09/29/21 Range/Units 04:53 04:53 05:25 Sodium 129 L 132 L (137-145) mmol/L Potassium 6.6 H* (3.5-5.1) mmol/L Chloride (98-107) mmol/L Carbon Dioxide (22-30) mmol/L BUN 33 H (9-20) mg/dL Creatinine (0.66-1.25) mg/dL Glucose 133 H (74-99) mg/dL POC Glucose (mg/dL) 131 H (70-110) mg/dL Calcium (8.4-10.2) mg/dL Phosphorus 4.9 H (2.5-4.5) mg/dL 09/29/21 Range/Units 07:45 Sodium 133 L (137-145) mmol/L Potassium (3.5-5.1) mmol/L Chloride (98-107) mmol/L Carbon Dioxide 33 H (22-30) mmol/L BUN 30 H (9-20) mg/dL Creatinine (0.66-1.25) mg/dL Glucose 179 H (74-99) mg/dL POC Glucose (mg/dL) (70-110) mg/dL Calcium 8.3 L (8.4-10.2) mg/dL Phosphorus (2.5-4.5) mg/dL Assessment and Plan Assessment: impression 1. Hyponatremia secondary to SIADH responded to 3% saline. Sodium was 116 is 133. Diabetes and son was discontinued. Currently on 100 mL of normal saline 2. Hypotension cause not very clear on levo fed pressures are normal urine output is good 3. Hyperkalemia. Potassium has been in the 5.2 mEq to 5.9 mEq but the last one was 6.6, Not very clear as to the etiology rule out adrenal insufficiency cortisol is pending patient is on hydrocortisone. The last potassium of 6.6 maybe additionally secondary to pseudohyperkalemia secondary to blood drawn from fingertip. 4. Encephalopathy secondary to hyponatremia and hypotension. Other causes need to be ruled out 5. initially thought to be from SIADH but his urine output has gone down his blood pressure is down. improving on 3% saline 6. History of CLL/SLL has not followed up with hematology 7. respiratory alkalosis secondary to confusion, pH was 7.16 pCO2 is 101 pO2 is 163 Recommendation 1. Reduce IV fluids to normal saline at 50 an hour 2. Taper off Levophed as per ICU team 3. Discontinue labs every 4 hourly labs 4. Will continue hydrocortisone until serum cortisol levels are available.
[2021-09-29 11:49] LABS: Glucose,Whole Blood 121 mg/dL (70-110)
[2021-09-29 14:52] LABS: Immunoglobulin A 19.7 mg/dL (60.0-350.0); Immunoglobulin M 8.8 mg/dL (40.0-280.0)
[2021-09-29 17:23] LABS: Glucose,Whole Blood 104 mg/dL (70-110)
[2021-09-30 00:05] LABS: Glucose,Whole Blood 112 mg/dL (70-110)
--- NOTE | 2021-09-30 02:11 | P.PN ---
Subjective Progress Note Date: 09/29/21 Patient is a 66-year-old male with a known history of hypertension, hyperlipidemia, diabetes type 2, history of CVA with left hemiparesis, chronic hypercapnic respiratory failure, hyponatremia and mediastinal lymphadenopathy/lymphoma, schizophrenia and currently everyday smoker and a history of cocaine use was brought to ER by EMS. Patient's guardian noted that he was a little bit congested and shortness of breath is worse compared to yesterday and called EMS. Pulse ox was 88% on room air. Patient cannot provide any history at this time. Patient also developed altered mental status. Alert awake alert and oriented x3 at baseline. Chest x-ray showed mild cardiomegaly and chronic parenchymal changes without acute pulmonary process. CT head showed no acute intracranial process. Nonspecific white matter changes likely secondary to chronic small vessel ischemic disease. ABG showed pH 7.16 PCO2 101 PO2 163 and laboratory data showed WBC 88.8 hemoglobin 13.4 and platelets 251 Sodium 116 potassium 5.1 chloride 81 bicarb is 34 BUN 10 and creatinine 0.49 and lactic acid 0.6 calcium 7.8 and magnesium 1.9 liver enzymes are not elevated troponin x1 negative proBNP 4310 and coronavirus PCR not detected. 09/28/2021 Patient is currently in the MICU. Patient is being continued on BiPAP with FiO2 90%. Currently on norepinephrine drip and also requiring Precedex. Patient is able to open his eyes with verbal stimuli. Could not communicate. Chest x-ray showed persistent left lower lobe infiltrate and/or effusion as well as discoid atelectasis right lower lobe. Patient is being continued on normal saline at 75 cc/h. Was started on hypertonic saline as per nephrology recommendations. Laboratory showed sodium improved to 125, potassium 5.3 chloride 89 bicarb is 31 BUN 28 and creatinine 1.61. Cortisol level is 44. WBC 2.9 hemoglobin 13.0 and platelets 286. Lymphocytes 63. Pulmonary, nephrology and oncology is on board. 2021 Patient is in the MICU. Off BiPAP this morning for a brief period and started back again. Patient is more awake and able to open his eyes and follow simple commands. Could not communicate otherwise. Patient is also requiring norepinephrine drip and also on Precedex. Patient was started on hydrocortisone 100 mg every 6 hourly due to hypotension and was also given 1 dose of IV Lasix. Laboratory showed sodium level improved to 133 potassium 4.8 chloride 99 bicarb is 33 BUN 30 and creatinine 0.97 and calcium 8.3. Nephrology and pulmonary is on board. Current medications reviewed. Objective - Vital Signs Vital signs: Vital Signs Temp 97.9 F 09/29/21 16:00 Pulse 94 09/29/21 22:00 Resp 16 09/29/21 22:00 BP 110/86 09/29/21 22:00 Pulse Ox 98 09/29/21 22:00 FiO2 60 09/29/21 22:00 Intake & Output 09/29/21 09/29/21 09/30/21 06:59 18:59 06:59 Intake Total 1075.903 836.410 80 Output Total 1555 2190 265 Balance -479.097 -1353.590 -185 Weight 83.6 kg Intake: IV 390 560 80 .9 KVO 110 160 80 Sodium Chloride 0.9% 1, 400 000 ml @ 100 mls/hr IV . Q10H [facility] Rx#:[id number] Sodium Chloride 3%( 280 Hypertonic) 500 ml @ 40 mls/hr IV .[id number] [facility] Rx #:[id number] Intake, IV Titration 685.903 276.410 Amount Dexmedetomidine/0.9% NaCl 98.860 103.107 (Pmx) 400 mcg In Empty Bag 1 bag @ 0.2 MCG/KG/HR 3.8 mls/hr IV .Q24H [facility] Rx#:[id number] Norepinephrine 4 mg In 587.043 173.303 Sodium Chloride 0.9% 250 ml @ 0.05 MCG/KG/MIN 14. 478 mls/hr IV .[id number] [facility] Rx#:[id number] Output: Urine 1555 2190 265 Other: Voiding Method Indwelling Catheter Indwelling Catheter Indwelling Catheter - Exam PHYSICAL EXAMINATION: Patient is lying in the bed. awake and alert, no acute distress. HEENT: Normocephalic. Neck is supple. Pupils reactive. Nostrils clear. Oral cavity is moist. Neck reveals no JVD, carotid bruits, or thyromegaly. CHEST EXAMINATION: Trachea is central. Symmetrical expansion. Bibasilar diminished sounds. Scattered coarse sounds.. CARDIAC: Normal S1, S2 with no gallops. No murmurs ABDOMEN: Soft. Bowel sounds present. Nontender. No organomegaly. No abdominal bruits. Extremities: reveal no edema. No clubbing or cyanosis Neurologically. Patient is Awake alert and follows simple commands. Could not communicate.. No gross focal deficits noted Skin: No rash or skin lesions. Psychiatric: Could not be assessed at this time.. Musculoskeletal: No joint swelling or deformity. - Labs CBC & Chem 7: 09/28/21 08:20 09/29/21 11:28 Labs: Abnormal Lab Results - Last 24 Hours (Table) 09/29/21 09/29/21 09/29/21 Range/Units 00:18 04:53 04:53 Sodium 129 L 129 L (137-145) mmol/L Potassium (3.5-5.1) mmol/L Carbon Dioxide (22-30) mmol/L BUN (9-20) mg/dL Glucose (74-99) mg/dL POC Glucose (mg/dL) (70-110) mg/dL Calcium (8.4-10.2) mg/dL Phosphorus 4.9 H (2.5-4.5) mg/dL IgG 495.0 L (700.0-1600.0) mg/dL IgA 19.7 L (60.0-350.0) mg/dL IgM 8.8 L (40.0-280.0) mg/dL 09/29/21 09/29/21 09/29/21 Range/Units 04:53 05:25 07:45 Sodium 132 L 133 L (137-145) mmol/L Potassium 6.6 H* (3.5-5.1) mmol/L Carbon Dioxide 33 H (22-30) mmol/L BUN 33 H 30 H (9-20) mg/dL Glucose 133 H 179 H (74-99) mg/dL POC Glucose (mg/dL) 131 H (70-110) mg/dL Calcium 8.3 L (8.4-10.2) mg/dL Phosphorus (2.5-4.5) mg/dL IgG (700.0-1600.0) mg/dL IgA (60.0-350.0) mg/dL IgM (40.0-280.0) mg/dL 09/29/21 Range/Units 11:47 Sodium (137-145) mmol/L Potassium (3.5-5.1) mmol/L Carbon Dioxide (22-30) mmol/L BUN (9-20) mg/dL Glucose (74-99) mg/dL POC Glucose (mg/dL) 121 H (70-110) mg/dL Calcium (8.4-10.2) mg/dL Phosphorus (2.5-4.5) mg/dL IgG (700.0-1600.0) mg/dL IgA (60.0-350.0) mg/dL IgM (40.0-280.0) mg/dL Microbiology - Last 24 Hours (Table) 09/28/21 11:48 Blood Culture - Preliminary Blood No Growth after 24 hours Assessment and Plan Assessment: Altered mental status due to metabolic encephalopathy and hypoxic and hypercapnic respiratory failure. Hyponatremia with sodium level 116 on admission Improving with hypertonic saline. Etiology unclear. 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 Hypertension. currently Hypotensive. Diabetes type 2 COPD Chronic hypercapnic respiratory failure on home oxygen Schizophrenia History of incarceration Ongoing nicotine addiction History of cocaine use Previous hospitalization with aspiration pneumonia and VDRF DVT prophylaxis with heparin subcu CODE STATUS DNR/DNI Plan: Patient is on BiPAP and also requiring pressor support and Precedex. Continues IV hydration and nephrology is on board due to severe hyponatremia. was on hypertonic saline. Sodium level is improving. Patient was also given hydrocortisone due to hypotension and hyponatremia, hyperkalemia. Continue with insulin sliding scale and psychiatric medications on hold currently.. Prognosis is guarded at this time. Time with Patient: Greater than 30
[2021-09-30] MEDS: DEXMEDETOMIDINE/0.9% NACL(PMX) 400 MCG in EMPTY BAG 1 BAG IV SCH ×2 (03:20→17:36)
[2021-09-30 06:42] LABS: HCT 41.5 % (39.0-53.0); HGB 12.9 gm/dL (13.0-17.5); Hypochromasia Marked; MCHC 31.2 g/dL (31.0-37.0); MCV 102.6 fL (80.0-100.0); Macrocytosis Slight; Platelet Count 228 k/uL (150-450); RBC 4.04 m/uL (4.30-5.90); RDW 13.7 % (11.5-15.5); WBC 36.9 k/uL (3.8-10.6)
[2021-09-30 06:55] LABS: Glucose,Whole Blood 107 mg/dL (70-110)
[2021-09-30 06:57] LABS: African American GFR (CKD) >90 (>60 ml/min/1.73 sqM); Anion Gap 3 mmol/L; Blood Urea Nitrogen 29 mg/dL (9-20); Calcium 8.7 mg/dL (8.4-10.2); Carbon Dioxide 34 mmol/L (22-30); Chloride 100 mmol/L (98-107); Glucose 107 mg/dL (74-99); Non-African American GFR(CKD) >90 (>60 ml/min/1.73 sqM); Sodium 137 mmol/L (137-145)
[2021-09-30] MEDS: HYDROCORTISONE SUCCINATE 100 MG/2 ML VIAL IV SCH (06:58)
[2021-09-30 07:27] LABS: Potassium 5.6 mmol/L (3.5-5.1)
[2021-09-30] MEDS: PANTOPRAZOLE 40 MG/10 ML VIAL IVP SCH (08:21)
[2021-09-30] MEDS: HEPARIN SODIUM,PORCINE/PF 5,000 UNIT/0.5 ML SYRINGE SQ SCH ×2 (08:21→16:25)
[2021-09-30] MEDS: NOREPINEPHRINE 4 MG in SODIUM CHLORIDE 0.9% 250 ML IV SCH (08:22)
[2021-09-30] MEDS ORDERED: IPRATROPIUM-ALBUTEROL 3 ML NEB INHALATION PRN (09:16)
[2021-09-30] MEDS: methylPREDNISolone SOD SUCCI 40 MG/ML 1 ML VIAL IV SCH ×2 (09:26→17:36)
[2021-09-30] MEDS: PIPERACILLIN-TAZOBACTAM 3.375 GM in SODIUM CHLORIDE 0.9% 100 ML IVPB SCH ×2 (09:27→17:36)
[2021-09-30 09:57] LABS: Eosinophils # (M) 0.37 k/uL (0-0.7); Monocytes # (M) 1.85 k/uL (0-1.0); Neutrophils # (M) 8.49 k/uL (1.3-7.7); Neutrophils % (M) 23 %; Nucleated Red Blood Cells 0 /100 WBC (0-0); Total Cells Counted 100
--- NOTE | 2021-09-30 10:01 | P.PN ---
Subjective Patient is seen in follow-up for hyponatremia. Sodium level normal today. Potassium level 5.6 but it was a hemolyzed sample. Off vasopressors. Hasn't passed swallow eval yet. Cortisol level 44. Vital signs are stable. General: Awake. No acute distress. HEENT: Head exam is unremarkable. LUNGS: Breath sounds decreased. HEART: Rate and Rhythm are regular. ABDOMEN: Soft, no distention. EXTREMITITES: No edema. Objective - Vital Signs Vital signs: Vital Signs Temp 99.2 F 09/30/21 08:00 Pulse 96 09/30/21 09:30 Resp 21 09/30/21 09:30 BP 115/72 09/30/21 09:30 Pulse Ox 99 09/30/21 09:30 FiO2 60 09/30/21 07:43 Intake & Output 09/29/21 09/30/21 09/30/21 18:59 06:59 18:59 Intake Total 836.410 343.09 Output Total 2190 815 Balance -1353.590 -471.91 Weight 77.2 kg Intake: IV 560 260 .9 KVO 160 260 Sodium Chloride 0.9% 1, 400 000 ml @ 100 mls/hr IV . Q10H [facility] Rx#:[id number] Intake, IV Titration 276.410 83.09 Amount Dexmedetomidine/0.9% NaCl 103.107 83.09 (Pmx) 400 mcg In Empty Bag 1 bag @ 0.2 MCG/KG/HR 3.8 mls/hr IV .Q24H [facility] Rx#:[id number] Norepinephrine 4 mg In 173.303 Sodium Chloride 0.9% 250 ml @ 0.05 MCG/KG/MIN 14. 478 mls/hr IV .[id number] [facility] Rx#:[id number] Output: Urine 2190 815 Other: Voiding Method Indwelling Catheter Indwelling Catheter - Labs CBC & Chem 7: 09/30/21 06:13 09/30/21 06:13 Labs: Abnormal Lab Results - Last 24 Hours (Table) 09/29/21 09/29/21 09/30/21 Range/Units 04:53 11:47 00:04 WBC (3.8-10.6) k/uL RBC (4.30-5.90) m/uL Hgb (13.0-17.5) gm/dL MCV (80.0-100.0) fL Potassium (3.5-5.1) mmol/L Carbon Dioxide (22-30) mmol/L BUN (9-20) mg/dL Glucose (74-99) mg/dL POC Glucose (mg/dL) 121 H 112 H (70-110) mg/dL IgG 495.0 L (700.0-1600.0) mg/dL IgA 19.7 L (60.0-350.0) mg/dL IgM 8.8 L (40.0-280.0) mg/dL 09/30/21 09/30/21 Range/Units 06:13 06:13 WBC 36.9 H (3.8-10.6) k/uL RBC 4.04 L (4.30-5.90) m/uL Hgb 12.9 L (13.0-17.5) gm/dL MCV 102.6 H (80.0-100.0) fL Potassium 5.6 H (3.5-5.1) mmol/L Carbon Dioxide 34 H (22-30) mmol/L BUN 29 H (9-20) mg/dL Glucose 107 H (74-99) mg/dL POC Glucose (mg/dL) (70-110) mg/dL IgG (700.0-1600.0) mg/dL IgA (60.0-350.0) mg/dL IgM (40.0-280.0) mg/dL Microbiology - Last 24 Hours (Table) 09/28/21 11:48 Blood Culture - Preliminary Blood No Growth after 24 hours Assessment and Plan Plan: Assessment: 1. Hyponatremia. Etiology is poor solute intake as well as SIADH from malignancy. Resolved. 2. Hyperkalemia. Cortisol level was not low. Patient had severe leukocytosis which can lead to cell fragility/destruction leading to pseudohyperkalemia. This morning's sample was hemolyzed. 3. CLL/SLL. Hematology oncology following. 4. Shock status post Levophed. 5. Acute on chronic hypercapnic respiratory failure. Plan: Remains off IV fluids and vasopressors at this time. Okay to wean steroids from nephrology standpoint as cortisol level was not low. Swallow eval pending. Continue to monitor. Check TSH. Repeat potassium level.
[2021-09-30 11:32] LABS: ABG Base Excess 12.8 mmol/L; ABG PH 7.26 (7.35-7.45); ABG PO2 153 mmHg (83-108); ABG TCO2 43 mmol/L (19-24); Allen Test Performed? Yes
[2021-09-30 11:35] LABS: ABG HCO3 40 mmol/L (21-25); ABG PCO2 89 mmHg (35-45)
[2021-09-30 11:47] LABS: Glucose,Whole Blood 116 mg/dL (70-110)
[2021-09-30 11:51] LABS: Glucose,Whole Blood 119 mg/dL (70-110)
[2021-09-30] MEDS: IPRATROPIUM-ALBUTEROL 3 ML NEB INHALATION SCH ×3 (12:34→20:49)
--- NOTE | 2021-09-30 13:04 | P.PN ---
Subjective Progress Note Date: 09/30/21 Hypercapnia, altered mental status This is a 66-year-old male patient who has a history of schizophrenia currently on Invega, previous ventilatory dependent aspiration pneumonia, previous severe hyponatremia with SIADH, chronic obstructive pulmonary disease, hypertension, hyperlipidemia, lymphoma diagnosed in August 2019, chronic tobacco dependence. Yesterday his medical billing and coding instructor found him to be short of breath with some cough and congestion. Today his room air oxygen reading was 88% and EMS was called. He did develop altered mental status. Normally he is A and O 3. In the emergency room he was quite obtunded. No response to sternal rub or painful stimulation. White count 88.8. Hemoglobin 13.4. Platelets 251. INR 1.0. Sodium 116. Potassium 5.1. Bicarb 34. BUN 10. Creatinine 0.49. Glucose 125. Coronary virus by PCR not detected. Arterial blood gases on 55% FiO2 revealed a PaO2 of 163, pCO2 of 101 and a pH of 7.16. Placed on BiPAP 12/6 and decreased to 35% FiO2. He is seen today in consultation in the emergency department. He remains quite obtunded. He does withdraw to pain. Some inappropriate words. Opening his eyes to pain. Chest x-ray reveals mild cardiomegaly and chronic parenchymal changes without acute pulmonary process. CT of the brain revealed no acute intracranial process. Some non-specific white matter changes, likely secondary to chronic small vessel ischemic disease. The patient is seen today 09/28/2021 in follow-up in the intensive care unit. He remains obtunded but arousable. He had is continued on BiPAP 12/6 and 90% FiO2. He is requiring Precedex at 0.3 mcg/kg/h. He's on norepinephrine at 4 mcg/m. He is receiving 3% saline at 50 MLS per hour. His x-ray reveals persistent left lower lobe infiltrate/effusion with atelectasis of the right lower lobe. White count 82.9. Hemoglobin 13.0. Neutrophils 16.5. Lymphocytes 63. Monocytes 3.32. Sodium 120. Potassium 5.8. Chloride 86. BUN 24. Creatinine 1.16. Glucose 134. Calcium 8.2. Heparin for DVT prophylaxis. Protonix for GI prophylaxis. The patient is seen today 09/29/2021 in follow-up in the intensive care unit. He is currently on BiPAP 12/6 and 60% FiO2. He remains on norepinephrine at 6.7 mcg/m. Precedex at 0.6 mcg/kg/h. He is more awake and alert today. Sodium 13 3. Potassium 4.8. Bicarb 33. BUN 30. Creatinine 0.97. Calcium 8.3. Glucose 179. Hypertonic saline had been discontinued. He is currently on Solu Cortef 100 mg IV every 6 hours, was given Lasix 40 mg IVP 1. On heparin for DVT prophylaxis. On 09/30/2021, the patient is being seen for a follow-up. The patient remains on Precedex is running at 0.4 mcg/kg per minute. IV fluids are at KVO patient on 10 L of oxygen by nasal cannula. He does not communicate a whole lot. Nevertheless, the patient stated that his breathing is nonlabored and is calm and comfortable. He has a congested cough. On examination has bronchospastic and wheezy. Note that the patient has abnormal blood work. The white cell count at 36.9 consistent with his underlying CLL. The white cell count is chronically elevated. Hemoglobin is at 12.9 with a platelet count of 28. Rest of the electrolytes are all within normal limits. 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 For now, the patient remains on IV Zosyn. The patient will need a follow-up blood gas liters alternating between high flow oxygen and BiPAP for respiratory support which is set at a pressure over 6 cm of water. Objective - Vital Signs Vital signs: Vital Signs Temp 97.8 F 09/30/21 04:00 Pulse 87 09/30/21 07:00 Resp 21 09/30/21 07:00 BP 124/72 09/30/21 07:00 Pulse Ox 97 09/30/21 07:00 FiO2 60 09/30/21 07:43 Intake & Output 09/29/21 09/30/21 09/30/21 18:59 06:59 18:59 Intake Total 836.410 343.09 Output Total 2190 815 Balance -1353.590 -471.91 Weight 77.2 kg Intake: IV 560 260 .9 KVO 160 260 Sodium Chloride 0.9% 1, 400 000 ml @ 100 mls/hr IV . Q10H [facility] Rx#:[id number] Intake, IV Titration 276.410 83.09 Amount Dexmedetomidine/0.9% NaCl 103.107 83.09 (Pmx) 400 mcg In Empty Bag 1 bag @ 0.2 MCG/KG/HR 3.8 mls/hr IV .Q24H [facility] Rx#:[id number] Norepinephrine 4 mg In 173.303 Sodium Chloride 0.9% 250 ml @ 0.05 MCG/KG/MIN 14. 478 mls/hr IV .[id number] [facility] Rx#:[id number] Output: Urine 2190 815 Other: Voiding Method Indwelling Catheter Indwelling Catheter - Exam GENERAL EXAM: Awake, more alert today, 66-year-old male patient, on BiPAP 12/6 and 60% FiO2, alternating with high flow oxygen 10 L per minute nasal cannula HEAD: Normocephalic. EYES: Normal reaction of pupils, equal size. NOSE: Clear with pink turbinates. THROAT: No erythema or exudates. NECK: No masses, no JVD. CHEST: No chest wall deformity. LUNGS: Equal air entry with basilar crackles. Diminished breath on the patient is diffuse expiratory wheezes and crackles in the lung mccartney bilaterally CVS: S1 and S2 normal with no audible murmur, regular rhythm. ABDOMEN: No hepatosplenomegaly, normal bowel sounds, no guarding or rigidity. SPINE: No scoliosis or deformity SKIN: No rashes CENTRAL NERVOUS SYSTEM: Arousable, tone is normal in all 4 extremities. EXTREMITIES: There is no peripheral edema. No clubbing, no cyanosis. Peripheral pulses are intact. - Labs CBC & Chem 7: 09/30/21 06:13 09/30/21 10:48 Labs: Abnormal Lab Results - Last 24 Hours (Table) 09/29/21 09/29/21 09/30/21 Range/Units 04:53 11:47 00:04 WBC (3.8-10.6) k/uL RBC (4.30-5.90) m/uL Hgb (13.0-17.5) gm/dL MCV (80.0-100.0) fL Potassium (3.5-5.1) mmol/L Carbon Dioxide (22-30) mmol/L BUN (9-20) mg/dL Glucose (74-99) mg/dL POC Glucose (mg/dL) 121 H 112 H (70-110) mg/dL IgG 495.0 L (700.0-1600.0) mg/dL IgA 19.7 L (60.0-350.0) mg/dL IgM 8.8 L (40.0-280.0) mg/dL 09/30/21 09/30/21 Range/Units 06:13 06:13 WBC 36.9 H (3.8-10.6) k/uL RBC 4.04 L (4.30-5.90) m/uL Hgb 12.9 L (13.0-17.5) gm/dL MCV 102.6 H (80.0-100.0) fL Potassium 5.6 H (3.5-5.1) mmol/L Carbon Dioxide 34 H (22-30) mmol/L BUN 29 H (9-20) mg/dL Glucose 107 H (74-99) mg/dL POC Glucose (mg/dL) (70-110) mg/dL IgG (700.0-1600.0) mg/dL IgA (60.0-350.0) mg/dL IgM (40.0-280.0) mg/dL Microbiology - Last 24 Hours (Table) 09/28/21 11:48 Blood Culture - Preliminary Blood No Growth after 24 hours Assessment and Plan Plan: Altered mental status secondary mainly due to metabolic factors including chronic hypercapnic respiratory failure with acute decompensation addition to hyponatremia, both improving Acute hypoxic respiratory failure, on 10 liters/min and BIPAP overnigt at 12/6,65% and the patient continues to have a left lower lobe consolidation consistent with possibility of an underlying pneumonia Chronic obstructive pulmonary disease, and exacerbation Hyponatremia of unclear etiology. 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 Also suggest obtaining a blood gas to evaluate this patient based status. BiPAP will be used on and off during the day pressures of 12/6 cm of water for Alis support Start the patient on Duoneb Start the patient on IV solumedrol 40 mg every 8 hours Continue Zosyn Will check the Procal level ABGs DC hydrocortisone as the patient is going to be started on IV Solu-Medrol Swallow evaluation Clinically more alert sodium level is improved. We'll check at follow-up blood gases and that even with this patient has based status. We'll continue to follow. Condition is still critical.
--- NOTE | 2021-09-30 15:01 | P.PN ---
Subjective Progress Note Date: 09/30/21 Patient is a 66-year-old male with a known history of hypertension, hyperlipidemia, diabetes type 2, history of CVA with left hemiparesis, chronic hypercapnic respiratory failure, hyponatremia and mediastinal lymphadenopathy/lymphoma, schizophrenia and currently everyday smoker and a history of cocaine use was brought to ER by EMS. Patient's guardian noted that he was a little bit congested and shortness of breath is worse compared to yesterday and called EMS. Pulse ox was 88% on room air. Patient cannot provide any history at this time. Patient also developed altered mental status. Alert awake alert and oriented x3 at baseline. Chest x-ray showed mild cardiomegaly and chronic parenchymal changes without acute pulmonary process. CT head showed no acute intracranial process. Nonspecific white matter changes likely secondary to chronic small vessel ischemic disease. ABG showed pH 7.16 PCO2 101 PO2 163 and laboratory data showed WBC 88.8 hemoglobin 13.4 and platelets 251 Sodium 116 potassium 5.1 chloride 81 bicarb is 34 BUN 10 and creatinine 0.49 and lactic acid 0.6 calcium 7.8 and magnesium 1.9 liver enzymes are not elevated troponin x1 negative proBNP 4310 and coronavirus PCR not detected. 09/28/2021 Patient is currently in the MICU. Patient is being continued on BiPAP with FiO2 90%. Currently on norepinephrine drip and also requiring Precedex. Patient is able to open his eyes with verbal stimuli. Could not communicate. Chest x-ray showed persistent left lower lobe infiltrate and/or effusion as well as discoid atelectasis right lower lobe. Patient is being continued on normal saline at 75 cc/h. Was started on hypertonic saline as per nephrology recommendations. Laboratory showed sodium improved to 125, potassium 5.3 chloride 89 bicarb is 31 BUN 28 and creatinine 1.61. Cortisol level is 44. WBC 2.9 hemoglobin 13.0 and platelets 286. Lymphocytes 63. Pulmonary, nephrology and oncology is on board. 09/29 2021 Patient is in the MICU. Off BiPAP this morning for a brief period and started back again. Patient is more awake and able to open his eyes and follow simple commands. Could not communicate otherwise. Patient is also requiring norepinephrine drip and also on Precedex. Patient was started on hydrocortisone 100 mg every 6 hourly due to hypotension and was also given 1 dose of IV Lasix. Laboratory showed sodium level improved to 133 potassium 4.8 chloride 99 bicarb is 33 BUN 30 and creatinine 0.97 and calcium 8.3. Nephrology and pulmonary is on board. Current medications reviewed. 09/30/2021 Patient is seen in follow-up continues to be in the ICU with multiple medical consultations following including pulmonary it risk and assurance senior manager. Patient was maintained on BiPAP overnight currently maintained on high flow nasal cannula at 8-10 L and tolerating well. WBC continues to be elevated at 36.9, hemoglobin is 12.9, platelets are 228, sodium 137 with a potassium of 5.6 and appears hemolyzed and current creatinine is 0.75 with a repeat potassium ordered. Pro-calcitonin at 0.25. Repeat potassium is ordered and pending. Patient is maintained on a lbuterol along with IV steroids and is off pressor support at this time. Patient also continues on IV Zosyn and hypertonic solution has been discontinued and patient did receive some Solu-Cortef. Hematology oncology following for lymphocytic lymphoma. Patient is currently afebrile and denies any chest pain. Patient continues with shortness of breath and has overall generalized weakness Review of systems: Unable to completely obtain as patient is mumbling at times and appears somewhat confused PHYSICAL EXAMINATION: Patient is lying in the bed. awake and alert, no acute distress. Currently maintained on high flow 10 L nasal cannula HEENT: Normocephalic. Neck is supple. Pupils reactive. Nostrils clear. Oral cavity is moist. Neck reveals no JVD, carotid bruits, or thyromegaly. CHEST EXAMINATION: Trachea is central. Symmetrical expansion. Bibasilar diminished sounds. Scattered coarse sounds with some scattered crackles noted.. CARDIAC: Normal S1, S2 with no gallops. No murmurs ABDOMEN: Soft. Bowel sounds present. Nontender. No organomegaly. No abdominal bruits. Extremities: reveal no edema. No clubbing or cyanosis Neurologically. Patient is Awake alert and follows simple commands. Could not communicate.. Diffuse weakness Skin: No rash or skin lesions. Psychiatric: Could not be assessed at this time.. Musculoskeletal: No joint swelling or deformity. Assessment: Altered mental status due to metabolic encephalopathy and hypoxic and hypercapnic respiratory failure. Hyponatremia with sodium level 116 on admission Improving, hypertonic saline has been discontinued most likely from poor solute intake and also component of SIADH from malignancy Hyperkalemia Small lymphocytic lymphoma with elevated WBC count to 88.8 History of CVA with left-sided hemiparesis. Hypertension. currently Hypotensive. Now off pressor support Diabetes type 2 COPD Chronic hypercapnic respiratory failure on home oxygen Schizophrenia History of incarceration Ongoing nicotine addiction History of cocaine use Previous hospitalization with aspiration pneumonia and VDRF DVT prophylaxis with heparin subcu CODE STATUS DNR/DNI Plan: Patient is on currently maintained on 10 L high flow and was on BiPAP last night. Precedex and pressor support currently on hold and hypertonic saline has been discontinued Continues IV hydration and nephrology is on board due to severe hyponatremia. Improving and sodium is 137 Patient's potassium elevated at 5.6 although slightly hemolyzed and waiting for repeat specimen to be drawn Patient was given hydrocortisone due to hypotension and hyponatremia, hyperkalemia. And cortisol level was within normal limits and Solu-Cortef being discontinued Continue with insulin sliding scale and continue to monitor Accu-Cheks before meals and at bedtime. Pending swallow eval at this time. psychiatric medications on hold currently as patient is nothing by mouth awaiting a swallow eval.. Prognosis is guarded at this time. The impression and plan of care has been dictated by Martita Enrique, Pra ctitioner as directed. Dr. Wai MD I have performed a history and examination and MDM of this patient, discussed the same with the dictator, and agree with the dictator's assessment and plan as written ,documented as a scribe. Based on total visit time, I have performed more than 50% of the visit. Objective - Vital Signs Vital signs: Vital Signs Temp 97.8 F 09/30/21 04:00 Pulse 87 09/30/21 07:00 Resp 21 09/30/21 07:00 BP 124/72 09/30/21 07:00 Pulse Ox 97 09/30/21 07:00 FiO2 60 09/30/21 07:43 Intake & Output 09/29/21 09/30/21 09/30/21 18:59 06:59 18:59 Intake Total 836.410 343.09 Output Total 2190 815 Balance -1353.590 -471.91 Weight 77.2 kg Intake: IV 560 260 .9 KVO 160 260 Sodium Chloride 0.9% 1, 400 000 ml @ 100 mls/hr IV . Q10H [facility] Rx#:[id number] Intake, IV Titration 276.410 83.09 Amount Dexmedetomidine/0.9% NaCl 103.107 83.09 (Pmx) 400 mcg In Empty Bag 1 bag @ 0.2 MCG/KG/HR 3.8 mls/hr IV .Q24H [facility] Rx#:[id number] Norepinephrine 4 mg In 173.303 Sodium Chloride 0.9% 250 ml @ 0.05 MCG/KG/MIN 14. 478 mls/hr IV .[id number] [facility] Rx#:[id number] Output: Urine 2190 815 Other: Voiding Method Indwelling Catheter Indwelling Catheter - Labs CBC & Chem 7: 09/30/21 06:13 09/30/21 10:48 Labs: Abnormal Lab Results - Last 24 Hours (Table) 09/29/21 09/29/21 09/30/21 Range/Units 04:53 11:47 00:04 WBC (3.8-10.6) k/uL RBC (4.30-5.90) m/uL Hgb (13.0-17.5) gm/dL MCV (80.0-100.0) fL Potassium (3.5-5.1) mmol/L Carbon Dioxide (22-30) mmol/L BUN (9-20) mg/dL Glucose (74-99) mg/dL POC Glucose (mg/dL) 121 H 112 H (70-110) mg/dL IgG 495.0 L (700.0-1600.0) mg/dL IgA 19.7 L (60.0-350.0) mg/dL IgM 8.8 L (40.0-280.0) mg/dL 09/30/21 09/30/21 Range/Units 06:13 06:13 WBC 36.9 H (3.8-10.6) k/uL RBC 4.04 L (4.30-5.90) m/uL Hgb 12.9 L (13.0-17.5) gm/dL MCV 102.6 H (80.0-100.0) fL Potassium 5.6 H (3.5-5.1) mmol/L Carbon Dioxide 34 H (22-30) mmol/L BUN 29 H (9-20) mg/dL Glucose 107 H (74-99) mg/dL POC Glucose (mg/dL) (70-110) mg/dL IgG (700.0-1600.0) mg/dL IgA (60.0-350.0) mg/dL IgM (40.0-280.0) mg/dL Microbiology - Last 24 Hours (Table) 09/28/21 11:48 Blood Culture - Preliminary Blood No Growth after 24 hours
[2021-09-30 17:59] LABS: Glucose,Whole Blood 119 mg/dL (70-110)
[2021-09-30 20:45] LABS: African American GFR (CKD) >90 (>60 ml/min/1.73 sqM); Blood Urea Nitrogen 28 mg/dL (9-20); Calcium 8.7 mg/dL (8.4-10.2); Chloride 96 mmol/L (98-107); Glucose 124 mg/dL (74-99); Magnesium 2.2 mg/dL (1.6-2.3); Non-African American GFR(CKD) >90 (>60 ml/min/1.73 sqM); Potassium 5.3 mmol/L (3.5-5.1); Sodium 139 mmol/L (137-145)
[2021-09-30 20:52] LABS: Anion Gap 2 mmol/L
[2021-09-30 21:06] LABS: Carbon Dioxide 41 mmol/L (22-30)
[2021-09-30] MEDS ORDERED: DEXTROSE 50% SYRINGE 50 ML IVP STA (21:39)
[2021-09-30] MEDS ORDERED: INSULIN REGULAR 100 UNIT/ML VIAL (IV) IV ONE ×2 (21:39→23:45)
[2021-09-30 23:56] LABS: Glucose,Whole Blood 126 mg/dL (70-110)
[2021-10-01] MEDS: HEPARIN SODIUM,PORCINE/PF 5,000 UNIT/0.5 ML SYRINGE SQ SCH ×3 (00:02→17:19)
[2021-10-01] MEDS: methylPREDNISolone SOD SUCCI 40 MG/ML 1 ML VIAL IV SCH ×3 (03:12→17:19)
[2021-10-01] MEDS: PIPERACILLIN-TAZOBACTAM 3.375 GM in SODIUM CHLORIDE 0.9% 100 ML IVPB SCH ×3 (03:13→17:19)
[2021-10-01] MEDS: NOREPINEPHRINE 4 MG in SODIUM CHLORIDE 0.9% 250 ML IV SCH (03:13)
[2021-10-01 06:39] LABS: HCT 39.2 % (39.0-53.0); HGB 12.3 gm/dL (13.0-17.5); Hypochromasia Moderate; MCH 31.8 pg (25.0-35.0); MCHC 31.3 g/dL (31.0-37.0); MCV 101.7 fL (80.0-100.0); Macrocytosis Slight; Mean Platelet Volume 7.1; Platelet Count 196 k/uL (150-450); RBC 3.85 m/uL (4.30-5.90); RDW 13.6 % (11.5-15.5); WBC 30.5 k/uL (3.8-10.6)
[2021-10-01 06:42] LABS: African American GFR (CKD) >90 (>60 ml/min/1.73 sqM); Blood Urea Nitrogen 29 mg/dL (9-20); Calcium 8.6 mg/dL (8.4-10.2); Chloride 99 mmol/L (98-107); Glucose 128 mg/dL (74-99); Non-African American GFR(CKD) >90 (>60 ml/min/1.73 sqM); Sodium 141 mmol/L (137-145)
[2021-10-01 06:44] LABS: Glucose,Whole Blood 128 mg/dL (70-110)
[2021-10-01 06:48] LABS: Anion Gap 3 mmol/L; Carbon Dioxide 39 mmol/L (22-30)
--- NOTE | 2021-10-01 07:15 | XR ---
EXAMINATION TYPE: XR chest 1V portable DATE OF EXAM: 10/01/2021 5:36 AM COMPARISON: Chest radiographs from 09/28/2021 TECHNIQUE: XR chest 1V portable Frontal view of the chest. CLINICAL INDICATION:Male, 66 years old with history of pulmonary congestion; FINDINGS: Lungs/Pleura: No pneumothorax. Bilateral pleural effusions with thinning of the costophrenic angles. Right basilar atelectasis. Improved aeration of the left base with residual atelectasis and/or infilt rate and possible small pleural effusion. Heart/mediastinum: Mildly enlarged but stable cardiac silhouette. Musculoskeletal: No acute osseous pathology. IMPRESSION: Improved aeration of the left lung base with residual atelectasis and/or infiltrate with small bilate ral pleural effusions.
[2021-10-01] MEDS: DEXMEDETOMIDINE/0.9% NACL(PMX) 400 MCG in EMPTY BAG 1 BAG IV SCH ×2 (07:38→18:59)
[2021-10-01 07:42] LABS: T4, Free (Free Thyroxine) 1.32 ng/dL (0.78-2.19)
[2021-10-01] MEDS: IPRATROPIUM-ALBUTEROL 3 ML NEB INHALATION SCH ×4 (07:45→19:47)
[2021-10-01] MEDS: PANTOPRAZOLE 40 MG/10 ML VIAL IVP SCH (08:41)
[2021-10-01 11:23] LABS: ABG Base Excess 18.1 mmol/L; ABG Oxygen Saturation 99.7 % (94-97); ABG PCO2 68 mmHg (35-45); ABG PH 7.41 (7.35-7.45); ABG PO2 156 mmHg (83-108); ABG TCO2 45 mmol/L (19-24); Allen Test Performed? Yes
[2021-10-01 11:26] LABS: ABG HCO3 43 mmol/L (21-25)
[2021-10-01 11:32] LABS: Glucose,Whole Blood 168 mg/dL (70-110)
--- NOTE | 2021-10-01 12:17 | P.PN ---
Subjective Progress Note Date: 10/01/21 Hypercapnia, altered mental status This is a 66-year-old male patient who has a history of schizophrenia currently on Invega, previous ventilatory dependent aspiration pneumonia, previous severe hyponatremia with SIADH, chronic obstructive pulmonary disease, hypertension, hyperlipidemia, lymphoma diagnosed in August 2019, chronic tobacco dependence. Yesterday his sterile preparation technician found him to be short of breath with some cough and congestion. Today his room air oxygen reading was 88% and EMS was called. He did develop altered mental status. Normally he is A and O 3. In the emergency room he was quite obtunded. No response to sternal rub or painful stimulation. White count 88.8. Hemoglobin 13.4. Platelets 251. INR 1.0. Sodium 116. Potassium 5.1. Bicarb 34. BUN 10. Creatinine 0.49. Glucose 125. Coronary virus by PCR not detected. Arterial blood gases on 55% FiO2 revealed a PaO2 of 163, pCO2 of 101 and a pH of 7.16. Placed on BiPAP 12/6 and decreased to 35% FiO2. He is seen today in consultation in the emergency department. He remains quite obtunded. He does withdraw to pain. Some inappropriate words. Opening his eyes to pain. Chest x-ray reveals mild cardiomegaly and chronic parenchymal changes without acute pulmonary process. CT of the brain revealed no acute intracranial process. Some non-specific white matter changes, likely secondary to chronic small vessel ischemic disease. The patient is seen today 09/28/2021 in follow-up in the intensive care unit. He remains obtunded but arousable. He had is continued on BiPAP 12/6 and 90% FiO2. He is requiring Precedex at 0.3 mcg/kg/h. He's on norepinephrine at 4 mcg/m. He is receiving 3% saline at 50 MLS per hour. His x-ray reveals persistent left lower lobe infiltrate/effusion with atelectasis of the right lower lobe. White count 82.9. Hemoglobin 13.0. Neutrophils 16.5. Lymphocytes 63. Monocytes 3.32. Sodium 120. Potassium 5.8. Chloride 86. BUN 24. Creatinine 1.16. Glucose 134. Calcium 8.2. Heparin for DVT prophylaxis. Protonix for GI prophylaxis. The patient is seen today 09/29/2021 in follow-up in the intensive care unit. He is currently on BiPAP 12/6 and 60% FiO2. He remains on norepinephrine at 6.7 mcg/m. Precedex at 0.6 mcg/kg/h. He is more awake and alert today. Sodium 13 3. Potassium 4.8. Bicarb 33. BUN 30. Creatinine 0.97. Calcium 8.3. Glucose 179. Hypertonic saline had been discontinued. He is currently on Solu Cortef 100 mg IV every 6 hours, was given Lasix 40 mg IVP 1. On heparin for DVT prophylaxis. On 09/30/2021, the patient is being seen for a follow-up. The patient remains on Precedex is running at 0.4 mcg/kg per minute. IV fluids are at KVO patient on 10 L of oxygen by nasal cannula. He does not communicate a whole lot. Nevertheless, the patient stated that his breathing is nonlabored and is calm and comfortable. He has a congested cough. On examination has bronchospastic and wheezy. Note that the patient has abnormal blood work. The white cell count at 36.9 consistent with his underlying CLL. The white cell count is chronically elevated. Hemoglobin is at 12.9 with a platelet count of 28. Rest of the electrolytes are all within normal limits. 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 For now, the patient remains on IV Zosyn. The patient will need a follow-up blood gas liters alternating between high flow oxygen and BiPAP for respiratory support which is set at a pressure of 12 over 6 cm of water. 10/01/2021, the patient is awake and interactive and the patient is following commands and answering questions appropriately. Denies having any complaints. Noted the patient schizophrenia and overall history provided by the patient is quite limited. Nevertheless, his breathing is much more comfortable compared to yesterday. The patient is currently on a combination of bronchodilators, and steroids. Less bronchospastic and wheezy on today's evaluation. Oxygen level is also being weaned down to 4 L per minute nasal cannula. His pro calcitonin level is at 0.25 and the patient is still on Precedex and the rate has been Down to 0.4 mcg/kg per minute. On his blood work, the white cell count is at 30 which is still elevated related to his underlying CLL. The white cell count of 15.3. Sodium is 141 with a BUN of 29 and a creatinine of 0.8 and a serum bicarbonate of 39. No other significant events otherwise for now. The patient's condition is stable. The patient is currently off BiPAP and he has a BiPAP machine at the bedside. Note that the patient failed swallow evaluation yesterday. The same will be done today as the patient is much more alert and awake. Precedex will be weaned off and discontinued. Psychiatric consultation will be also obtained. Objective - Vital Signs Vital signs: Vital Signs Temp 99.4 F 10/01/21 08:00 Pulse 80 10/01/21 09:00 Resp 22 10/01/21 09:00 BP 114/70 10/01/21 09:00 Pulse Ox 94 L 10/01/21 09:00 FiO2 50 10/01/21 00:15 Intake & Output 09/30/21 10/01/21 10/01/21 18:59 06:59 18:59 Intake Total 495.887 325.31 90.998 Output Total 777 755 105 Balance -281.113 -429.69 -14.002 Weight 79 kg Intake: IV 300 240 60 .9 KVO 200 140 60 Piperacillin-Tazobactam 3 100 100 .375 gm In Sodium Chloride 0.9% 100 ml @ 25 mls/hr IVPB Q8H [facility] Rx#: [id number] Intake, IV Titration 195.887 85.31 30.998 Amount Dexmedetomidine/0.9% NaCl 95.887 85.31 30.998 (Pmx) 400 mcg In Empty Bag 1 bag @ 0.2 MCG/KG/HR 3.8 mls/hr IV .Q24H [facility] Rx#:[id number] Piperacillin-Tazobactam 3 100 .375 gm In Sodium Chloride 0.9% 100 ml @ 25 mls/hr IVPB Q8H [facility] Rx#: [id number] Output: Urine 777 755 105 Other: Voiding Method Indwelling Catheter Indwelling Catheter - Exam GENERAL EXAM: Awake, more alert today, 66-year-old male patient, on BiPAP / and 60% FiO2, alternating with high flow oxygen 4 L per minute nasal cannula HEAD: Normocephalic. EYES: Normal reaction of pupils, equal size. NOSE: Clear with pink turbinates. THROAT: No erythema or exudates. NECK: No masses, no JVD. CHEST: No chest wall deformity. LUNGS: Equal air entry with basilar crackles. Diminished breath on the patient is diffuse expiratory wheezes and crackles in the lung mccartney bilaterally CVS: S1 and S2 normal with no audible murmur, regular rhythm. ABDOMEN: No hepatosplenomegaly, normal bowel sounds, no guarding or rigidity. SPINE: No scoliosis or deformity SKIN: No rashes CENTRAL NERVOUS SYSTEM: Arousable, tone is normal in all 4 extremities. EXTREMITIES: There is no peripheral edema. No clubbing, no cyanosis. Peripheral pulses are intact. - Labs CBC & Chem 7: 10/01/21 05:53 10/01/21 05:53 Labs: Abnormal Lab Results - Last 24 Hours (Table) 09/30/21 09/30/21 09/30/21 Range/Units 06:13 10:48 10:48 WBC (3.8-10.6) k/uL RBC (4.30-5.90) m/uL Hgb (13.0-17.5) gm/dL MCV (80.0-100.0) fL Neutrophils # (Manual) 8.49 H (1.3-7.7) k/uL Lymphocytes # (Manual) 26.20 H (1.0-4.8) k/uL Monocytes # (Manual) 1.85 H (0-1.0) k/uL ABG pH (7.35-7.45) ABG pCO2 (35-45) mmHg ABG pO2 (83-108) mmHg ABG HCO3 (21-25) mmol/L ABG Total CO2 (19-24) mmol/L ABG O2 Saturation (94-97) % Potassium 5.3 H (3.5-5.1) mmol/L Chloride (98-107) mmol/L Carbon Dioxide (22-30) mmol/L BUN (9-20) mg/dL Glucose (74-99) mg/dL POC Glucose (mg/dL) (70-110) mg/dL Procalcitonin 0.25 H (0.02-0.09) ng/mL TSH (0.465-4.680) mIU/L 09/30/21 09/30/21 09/30/21 Range/Units 11:30 11:45 11:49 WBC (3.8-10.6) k/uL RBC (4.30-5.90) m/uL Hgb (13.0-17.5) gm/dL MCV (80.0-100.0) fL Neutrophils # (Manual) (1.3-7.7) k/uL Lymphocytes # (Manual) (1.0-4.8) k/uL Monocytes # (Manual) (0-1.0) k/uL ABG pH 7.26 L (7.35-7.45) ABG pCO2 89 H* (35-45) mmHg ABG pO2 153 H (83-108) mmHg ABG HCO3 40 H* (21-25) mmol/L ABG Total CO2 43 H (19-24) mmol/L ABG O2 Saturation 99.0 H (94-97) % Potassium (3.5-5.1) mmol/L Chloride (98-107) mmol/L Carbon Dioxide (22-30) mmol/L BUN (9-20) mg/dL Glucose (74-99) mg/dL POC Glucose (mg/dL) 116 H 119 H (70-110) mg/dL Procalcitonin (0.02-0.09) ng/mL TSH (0.465-4.680) mIU/L 09/30/21 09/30/21 09/30/21 Range/Units 17:58 20:20 23:54 WBC (3.8-10.6) k/uL RBC (4.30-5.90) m/uL Hgb (13.0-17.5) gm/dL MCV (80.0-100.0) fL Neutrophils # (Manual) (1.3-7.7) k/uL Lymphocytes # (Manual) (1.0-4.8) k/uL Monocytes # (Manual) (0-1.0) k/uL ABG pH (7.35-7.45) ABG pCO2 (35-45) mmHg ABG pO2 (83-108) mmHg ABG HCO3 (21-25) mmol/L ABG Total CO2 (19-24) mmol/L ABG O2 Saturation (94-97) % Potassium 5.3 H (3.5-5.1) mmol/L Chloride 96 L (98-107) mmol/L Carbon Dioxide 41 H* (22-30) mmol/L BUN 28 H (9-20) mg/dL Glucose 124 H (74-99) mg/dL POC Glucose (mg/dL) 119 H 126 H (70-110) mg/dL Procalcitonin (0.02-0.09) ng/mL TSH (0.465-4.680) mIU/L 10/01/21 10/01/21 10/01/21 Range/Units 05:53 05:53 06:33 WBC 30.5 H (3.8-10.6) k/uL RBC 3.85 L (4.30-5.90) m/uL Hgb 12.3 L (13.0-17.5) gm/dL MCV 101.7 H (80.0-100.0) fL Neutrophils # (Manual) (1.3-7.7) k/uL Lymphocytes # (Manual) (1.0-4.8) k/uL Monocytes # (Manual) (0-1.0) k/uL ABG pH (7.35-7.45) ABG pCO2 (35-45) mmHg ABG pO2 (83-108) mmHg ABG HCO3 (21-25) mmol/L ABG Total CO2 (19-24) mmol/L ABG O2 Saturation (94-97) % Potassium (3.5-5.1) mmol/L Chloride (98-107) mmol/L Carbon Dioxide 39 H (22-30) mmol/L BUN 29 H (9-20) mg/dL Glucose 128 H (74-99) mg/dL POC Glucose (mg/dL) 128 H (70-110) mg/dL Procalcitonin (0.02-0.09) ng/mL TSH 0.254 L (0.465-4.680) mIU/L Microbiology - Last 24 Hours (Table) 09/30/21 20:17 Urine Culture - Preliminary Urine,Catheterized 09/28/21 11:48 Blood Culture - Preliminary Blood No Growth after 48 hours Assessment and Plan Plan: Altered mental status secondary mainly due to metabolic factors including chronic hypercapnic respiratory failure with acute decompensation addition to hyponatremia, clinically much improved compared to yesterday and the patient is able to communicate today without any major difficulties, and the patient remains on a low dose of Precedex which is running at 0.4 mcg/kg per minute. Acute hypoxic respiratory failure, on 4 L/min and BIPAP overnigt at 12/6,65% and the patient continues to have a left lower lobe consolidation consistent with possibility of an underlying pneumonia, and the follow-up chest x-ray shows some improvement in left lower lobe consolidation although there is some residual opacification of left hemidiaphragm. 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 The patient is currently on 4 L BiPAP will be used on and off during the day pressures of 12/6 cm of water Duoneb IV solumedrol 40 mg every 8 hours Continue Zosyn Will check the Procal level, and the level is at 0.254 ABGs to be repeated today Swallow evaluation failed yesterday , and this will be repeated today Consults psychiatry regarding any adjustment in his psychiatric medications We'll continue to follow. Condition is improved compared to yesterday.
--- NOTE | 2021-10-01 13:30 | P.CN ---
Psychiatric Consult - . Consult date: 10/01/21 Consult:: 10/01/21 13:22 IDENTIFYING DATA: Patient is a 65-year-old male who currently lives with his mother, single has no kids. HPI: Patient presented to the hospital initially on 09/27 for shortness of breath and congestion. Patient was brought in by EMS. Patient was found to be obtunded and was admitted to the ICU and was treated there. He is treated for aspiration pneumonia and hyponatremia and several other comorbid medical conditions. Patient has been on Precedex which has been slowly titrated down. Patient's TSH was 0.254 and free T4 was 1.32. Psychiatry is consulted for "agitation, history of schizophrenia". Patient was seen laying in the bed today and agreeable to speak with movie writer. He states that he does recognize movie writer from his previous 3W admission from feb 2021. He claims that he is in the hospital because he is "looking for work and "appears to have chronically poor insight. He was a poor historian and fairly concrete. He was not responding to internal stimuli. He spoke about his psychiatric medications and he claims that he takes Risperdal however states that he has not been taking it at this time. He states that he also received a Invega Sustenna injection and claims to take a "once a year" and does not know when he last received it. He states that he does go to [facility] however does not know when he was there last early follows up with. He claims his sleep and appetite are fair. Denying any mood symptoms at this time. He made some bizarre comments however was fairly directable and attempting to cooperate. He is not endorsing any paranoia today. Patient denies any suicidal or homicidal ideations intent or plan. At this time patient denies any auditory or visual hallucinations. Patient denies any flight of ideas racing thoughts and increased in goal directed behavior. Patient admits to using no recreational drugs however does use cigarettes daily. PAST PSYCHIATRIC HISTORY: Patient states that is history of schizophrenia. He claims that he is previously on Risperdal and Prozac in the past and also has been on Invega Sustenna however he did not know when his last injection was. Patient's last psychiatric hospitalization was in February 2021. He claims that he follows up with [facility] as an outpatient. Patient denies any history of suicide attempts in the past. Past Medical History: COPD, Diabetes Mellitus, Hypertension Additional Past Medical History / Comment(s): Previous history of CVA, schizophrenia, type 2 diabetes mellitus, history of SIADH with severe hyponatremia, history of mediastinal lymphadenopathy, history of pansinusitis with possible mastoiditis on a CAT scan of the brain and MRI of the brain, history of lacunar infarct with some right-sided facial weakness. ALLERGIES: as per EMR CHEMICAL DEPENDENCY HISTORY: as per HPI FAMILY PSYCHIATRIC/SUBSTANCE USE HISTORY: Claims that his brother has schizophrenia. SOCIAL HISTORY: Patient was born and raised in [facility]. He states that he completed high school. He claims that he has served time in senior care before however did not know why. He currently has felony charges sgainst him. He does not have any kids is single and lives with his mother in the home. MENTAL STATUS EXAM: General Appearance: Patient appears to be overweight stated age is alert, attempts to cooperate. Not responding to internal stimuli. Patient appears to have poor hygiene and grooming. Behavior: Patient is seated without any agitated behavior. Attempts to cooperate. Bizarre at times. Speech: Patient's speech is fluent and nonpressured. [place] and monotone Mood/Affect: Patient reports their mood is fair, affect is congruent and constricted. Suicidality/Homicidality: Patient denies having any homicidal ideation intent or plan. Denies any suicidal ideations intent or plan Perceptions: Patient denies any visual hallucinations and denies any auditory hallucinations Though content/process: [place], poverty of content. Vague. Memory and concentration: AOX3, grossly intact for the purposes of this session. Can spell "WORLD" backwards Judgment and insight: Chronically poor STRENGTHS/WEAKNESSES: strength is that patient is resilient. Weakness is that patient has poor judgment and is impulsive INTELLECT: average IMPRESSIONS: Schizophrenia Nicotine dependence PLAN: -WIll continue to monitor and follow along to see if patient actually needs psych admission or not. -Patient DOES NOT have decision making capacity at this time and is unable to reason through and communicate/appreciate the risks, benefits and alternatives to treatment. -Would recommend the following medication changes/additions: Start Risperdal 2 mg by mouth twice a day for psychosis. We'll attempt to inquire with [facility] when patient's last visit was in his last injection. -Communicated plan to patient's nurse -Will continue to follow along -Please contact with any questions.
--- NOTE | 2021-10-01 13:36 | P.PN ---
Subjective Patient is seen in follow-up for hyponatremia. Sodium level normal today. Potassium level 5.0.Off vasopressors. Did pass swallow eval and is tolerating chopped diet. Remains confused. Vital signs are stable. General: Awake. No acute distress. HEENT: Head exam is unremarkable. LUNGS: Breath sounds decreased. HEART: Rate and Rhythm are regular. ABDOMEN: Soft, no distention. EXTREMITITES: No edema. Objective - Vital Signs Vital signs: Vital Signs Temp 98.9 F 10/01/21 12:00 Pulse 91 10/01/21 13:00 Resp 18 10/01/21 13:00 BP 131/77 10/01/21 13:00 Pulse Ox 90 L 10/01/21 13:00 FiO2 50 10/01/21 00:15 Intake & Output 09/30/21 10/01/21 10/01/21 18:59 06:59 18:59 Intake Total 495.887 325.31 270.998 Output Total 777 755 315 Balance -281.113 -429.69 -44.002 Weight 79 kg Intake: IV 300 240 240 .9 KVO 200 140 140 Piperacillin-Tazobactam 3 100 100 100 .375 gm In Sodium Chloride 0.9% 100 ml @ 25 mls/hr IVPB Q8H [facility] Rx#: [id number] Intake, IV Titration 195.887 85.31 30.998 Amount Dexmedetomidine/0.9% NaCl 95.887 85.31 30.998 (Pmx) 400 mcg In Empty Bag 1 bag @ 0.2 MCG/KG/HR 3.8 mls/hr IV .Q24H [facility] Rx#:[id number] Piperacillin-Tazobactam 3 100 .375 gm In Sodium Chloride 0.9% 100 ml @ 25 mls/hr IVPB Q8H [facility] Rx#: [id number] Output: Urine 777 755 315 Other: Voiding Method Indwelling Catheter Indwelling Catheter Indwelling Catheter - Labs CBC & Chem 7: 10/01/21 05:53 10/01/21 05:53 Labs: Abnormal Lab Results - Last 24 Hours (Table) 09/30/21 09/30/21 09/30/21 Range/Units 10:48 17:58 20:20 WBC (3.8-10.6) k/uL RBC (4.30-5.90) m/uL Hgb (13.0-17.5) gm/dL MCV (80.0-100.0) fL ABG pCO2 (35-45) mmHg ABG pO2 (83-108) mmHg ABG HCO3 (21-25) mmol/L ABG Total CO2 (19-24) mmol/L ABG O2 Saturation (94-97) % Potassium 5.3 H (3.5-5.1) mmol/L Chloride 96 L (98-107) mmol/L Carbon Dioxide 41 H* (22-30) mmol/L BUN 28 H (9-20) mg/dL Glucose 124 H (74-99) mg/dL POC Glucose (mg/dL) 119 H (70-110) mg/dL Procalcitonin 0.25 H (0.02-0.09) ng/mL TSH (0.465-4.680) mIU/L 09/30/21 10/01/21 10/01/21 Range/Units 23:54 05:53 05:53 WBC 30.5 H (3.8-10.6) k/uL RBC 3.85 L (4.30-5.90) m/uL Hgb 12.3 L (13.0-17.5) gm/dL MCV 101.7 H (80.0-100.0) fL ABG pCO2 (35-45) mmHg ABG pO2 (83-108) mmHg ABG HCO3 (21-25) mmol/L ABG Total CO2 (19-24) mmol/L ABG O2 Saturation (94-97) % Potassium (3.5-5.1) mmol/L Chloride (98-107) mmol/L Carbon Dioxide 39 H (22-30) mmol/L BUN 29 H (9-20) mg/dL Glucose 128 H (74-99) mg/dL POC Glucose (mg/dL) 126 H (70-110) mg/dL Procalcitonin (0.02-0.09) ng/mL TSH 0.254 L (0.465-4.680) mIU/L 10/01/21 10/01/21 10/01/21 Range/Units 06:33 11:21 11:30 WBC (3.8-10.6) k/uL RBC (4.30-5.90) m/uL Hgb (13.0-17.5) gm/dL MCV (80.0-100.0) fL ABG pCO2 68 H (35-45) mmHg ABG pO2 156 H (83-108) mmHg ABG HCO3 43 H* (21-25) mmol/L ABG Total CO2 45 H (19-24) mmol/L ABG O2 Saturation 99.7 H (94-97) % Potassium (3.5-5.1) mmol/L Chloride (98-107) mmol/L Carbon Dioxide (22-30) mmol/L BUN (9-20) mg/dL Glucose (74-99) mg/dL POC Glucose (mg/dL) 128 H 168 H (70-110) mg/dL Procalcitonin (0.02-0.09) ng/mL TSH (0.465-4.680) mIU/L Microbiology - Last 24 Hours (Table) 09/30/21 20:17 Urine Culture - Preliminary Urine,Catheterized 09/28/21 11:48 Blood Culture - Preliminary Blood No Growth after 48 hours Assessment and Plan Plan: Assessment: 1. Hyponatremia. Etiology is poor solute intake as well as SIADH from malignancy. Resolved. TSH 0.25 and normal free T4. 2. Hyperkalemia. Cortisol level was not low. Patient had severe leukocytosis which can lead to cell fragility/destruction leading to pseudohyperkalemia. This morning's sample was hemolyzed. 3. CLL/SLL. Hematology oncology following. 4. Shock status post Levophed. 5. Acute on chronic hypercapnic respiratory failure. Plan: Remains off IV fluids and vasopressors at this time. Okay to wean steroids from nephrology standpoint as cortisol level was not low. Encourage oral intake.
[2021-10-01] MEDS: risperiDONE 2 MG TAB PO SCH ×2 (14:06→20:08)
[2021-10-01 18:13] LABS: Glucose,Whole Blood 242 mg/dL (70-110)
--- NOTE | 2021-10-01 20:50 | P.PN ---
Subjective Progress Note Date: 10/01/21 Patient is a 66-year-old male with a known history of hypertension, hyperlipidemia, diabetes type 2, history of CVA with left hemiparesis, chronic hypercapnic respiratory failure, hyponatremia and mediastinal lymphadenopathy/lymphoma, schizophrenia and currently everyday smoker and a history of cocaine use was brought to ER by EMS. Patient's guardian noted that he was a little bit congested and shortness of breath is worse compared to yesterday and called EMS. Pulse ox was 88% on room air. Patient cannot provide any history at this time. Patient also developed altered mental status. Alert awake alert and oriented x3 at baseline. Chest x-ray showed mild cardiomegaly and chronic parenchymal changes without acute pulmonary process. CT head showed no acute intracranial process. Nonspecific white matter changes likely secondary to chronic small vessel ischemic disease. ABG showed pH 7.16 PCO2 101 PO2 163 and laboratory data showed WBC 88.8 hemoglobin 13.4 and platelets 251 Sodium 116 potassium 5.1 chloride 81 bicarb is 34 BUN 10 and creatinine 0.49 and lactic acid 0.6 calcium 7.8 and magnesium 1.9 liver enzymes are not elevated troponin x1 negative proBNP 4310 and coronavirus PCR not detected. 09/28/2021 Patient is currently in the MICU. Patient is being continued on BiPAP with FiO2 90%. Currently on norepinephrine drip and also requiring Precedex. Patient is able to open his eyes with verbal stimuli. Could not communicate. Chest x-ray showed persistent left lower lobe infiltrate and/or effusion as well as discoid atelectasis right lower lobe. Patient is being continued on normal saline at 75 cc/h. Was started on hypertonic saline as per nephrology recommendations. Laboratory showed sodium improved to 125, potassium 5.3 chloride 89 bicarb is 31 BUN 28 and creatinine 1.61. Cortisol level is 44. WBC 2.9 hemoglobin 13.0 and platelets 286. Lymphocytes 63. Pulmonary, nephrology and oncology is on board. 09/29 2021 Patient is in the MICU. Off BiPAP this morning for a brief period and started back again. Patient is more awake and able to open his eyes and follow simple commands. Could not communicate otherwise. Patient is also requiring norepinephrine drip and also on Precedex. Patient was started on hydrocortisone 100 mg every 6 hourly due to hypotension and was also given 1 dose of IV Lasix. Laboratory showed sodium level improved to 133 potassium 4.8 chloride 99 bicarb is 33 BUN 30 and creatinine 0.97 and calcium 8.3. Nephrology and pulmonary is on board. Current medications reviewed. 09/30/2021 Patient is seen in follow-up continues to be in the ICU with multiple medical consultations following including pulmonary harness rigger. Patient was maintained on BiPAP overnight currently maintained on high flow nasal cannula at 8-10 L and tolerating well. WBC continues to be elevated at 36.9, hemoglobin is 12.9, platelets are 228, sodium 137 with a potassium of 5.6 and appears hemolyzed and current creatinine is 0.75 with a repeat potassium ordered. Pro-calcitonin at 0.25. Repeat potassium is ordered and pending. Patient is maintained on a lbuterol along with IV steroids and is off pressor support at this time. Patient also continues on IV Zosyn and hypertonic solution has been discontinued and patient did receive some Solu-Cortef. Hematology oncology following for lymphocytic lymphoma. Patient is currently afebrile and denies any chest pain. Patient continues with shortness of breath and has overall generalized weakness 10/01/2021 Patient continues to be in the ICU with multiple medical consultations following. Patient is currently maintained on 4 L high flow and wean as tolerated with oxygen saturation of 96%. Patient with low-grade temp of 99.4 with blood cultures being negative and urine culture received and pending. Patient is maintained on Zosyn along with IV steroids and low-dose Precedex along with breathing inhalational treatments. Chest x-ray today shows improved aeration of the left lung base with residual atelectasis and/or infiltrate with small bilateral pleural effusions noted. White blood count trending down at 30.5 and hemoglobin is 12.3 with platelets of 196. Potassium slightly improved at 5.0 and sodium is 141 with a creatinine of 0.83. Currently awaiting psych eval and swallow eval. Patient denies chest pain or shortness of breath. Patient is asking for food and pop. Patient is afebrile and denies worsening shortness of breath. Active Medications Albuterol/Ipratropium (Ipratropium-Albuterol 3 Ml Neb) 3 ml INHALATION RT-QID [facility] Last Admin: 10/01/21 19:47 Dose: Not Given Albuterol/Ipratropium (Ipratropium-Albuterol 3 Ml Neb) 3 ml INHALATION RT-Q2H PRN PRN Reason: Shortness Of Breath Or Wheezing Haloperidol Lactate (Haloperidol Lactate 5 Mg/Ml 1 Ml Vial) 4 mg IM Q4HR PRN PRN Reason: Agitation or Acute Psychosis Heparin Sodium (Porcine) (Heparin Sodium,Porcine/Pf 5,000 Unit/0.5 Ml Syringe) 5,000 unit SQ Q8HR [facility] Last Admin: 10/01/21 17:19 Dose: 5,000 unit Dexmedetomidine HCl 400 mcg/ (IV Solution) 100 mls @ 3.8 mls/hr IV .Q24H [facility]; Protocol Last Admin: 10/01/21 18:59 Dose: 0.2 mcg/kg/hr, 3.8 mls/hr Piperacillin Sod/Tazobactam (Sod 3.375 gm/ Sodium Chloride) 100 mls @ 25 mls/hr IVPB Q8H [facility]; Protocol Last Admin: 10/01/21 17:19 Dose: 25 mls/hr Methylprednisolone Sodium Succinate (Methylprednisolone Sod Succi 40 Mg/Ml 1 Ml Vial) 40 mg IV Q8H [facility] Last Admin: 10/01/21 17:19 Dose: 40 mg Naloxone HCl (Naloxone 0.4 Mg/Ml 1 Ml Vial) 0.2 mg IV Q2M PRN PRN Reason: Opioid Reversal Pantoprazole Sodium (Pantoprazole 40 Mg/10 Ml Vial) 40 mg IVP DAILY [facility] Last Admin: 10/01/21 08:41 Dose: 40 mg Risperidone (Risperidone 2 Mg Tab) 2 mg PO BID [facility] Last Admin: 10/01/21 20:08 Dose: 2 mg PHYSICAL EXAMINATION: Patient is lying in the bed. awake and alert, no acute distress. Currently maintained on high flow 4 L nasal cannula HEENT: Normocephalic. Neck is supple. Pupils reactive. Nostrils clear. Oral cavity is moist. Neck reveals no JVD, carotid bruits, or thyromegaly. CHEST EXAMINATION: Trachea is central. Symmetrical expansion. Bibasilar diminished sounds. Scattered coarse sounds with some scattered crackles noted.. CARDIAC: Normal S1, S2 with no gallops. No murmurs ABDOMEN: Soft. Bowel sounds present. Nontender. No organomegaly. No abdominal bruits. Extremities: reveal no edema. No clubbing or cyanosis Neurologically. Patient is Awake alert and follows simple commands. communicating more and requesting food and pop on exam.. Diffuse weakness Skin: No rash or skin lesions. Psychiatric: ..cooperative Musculoskeletal: No joint swelling or deformity. Assessment: Altered mental status due to metabolic encephalopathy and hypoxic and hypercapnic respiratory failure. 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 Hypertension. currently Hypotensive. Now off pressor support Diabetes type 2 COPD Chronic hypercapnic respiratory failure on home oxygen Schizophrenia History of incarceration Ongoing nicotine addiction History of cocaine use Previous hospitalization with aspiration pneumonia and VDRF DVT prophylaxis with heparin subcu CODE STATUS DNR/DNI Plan: Patient is on currently maintained on 4 L NC. Precedex congtinued for agitation nephrology is on board due to severe hyponatremia. improved Patient's potassium elevated at 5.0 today Patient awaiting swallow evaluation and psychiatry consult as well. Patient is much more awake and alert and requesting food. Need to resume psychiatric medications. Continue with insulin sliding scale and continue to monitor Accu-Cheks before meals and at bedtime. Will discuss with social work about discharge planning and treatment plan moving forward. Prognosis is guarded at this time. The impression and plan of care has been dictated by Martita Enrique, Nurse Practitioner as directed. Dr. Wai MD I have performed a history and examination and MDM of this patient, discussed the same with the dictator, and agree with the dictator's assessment and plan as written ,documented as a scribe. Based on total visit time, I have performed more than 50% of the visit. Objective - Vital Signs Vital signs: Vital Signs Temp 99.4 F 10/01/21 08:00 Pulse 80 10/01/21 09:00 Resp 22 10/01/21 09:00 BP 114/70 10/01/21 09:00 Pulse Ox 94 L 10/01/21 09:00 FiO2 50 10/01/21 00:15 Intake & Output 09/30/21 10/01/21 10/01/21 18:59 06:59 18:59 Intake Total 495.887 325.31 90.998 Output Total 777 755 105 Balance -281.113 -429.69 -14.002 Weight 79 kg Intake: IV 300 240 60 .9 KVO 200 140 60 Piperacillin-Tazobactam 3 100 100 .375 gm In Sodium Chloride 0.9% 100 ml @ 25 mls/hr IVPB Q8H [facility] Rx#: [id number] Intake, IV Titration 195.887 85.31 30.998 Amount Dexmedetomidine/0.9% NaCl 95.887 85.31 30.998 (Pmx) 400 mcg In Empty Bag 1 bag @ 0.2 MCG/KG/HR 3.8 mls/hr IV .Q24H [facility] Rx#:[id number] Piperacillin-Tazobactam 3 100 .375 gm In Sodium Chloride 0.9% 100 ml @ 25 mls/hr IVPB Q8H [facility] Rx#: [id number] Output: Urine 777 755 105 Other: Voiding Method Indwelling Catheter Indwelling Catheter - Labs CBC & Chem 7: 10/01/21 05:53 10/01/21 05:53 Labs: Abnormal Lab Results - Last 24 Hours (Table) 09/30/21 09/30/21 09/30/21 Range/Units 06:13 10:48 10:48 WBC (3.8-10.6) k/uL RBC (4.30-5.90) m/uL Hgb (13.0-17.5) gm/dL MCV (80.0-100.0) fL Neutrophils # (Manual) 8.49 H (1.3-7.7) k/uL Lymphocytes # (Manual) 26.20 H (1.0-4.8) k/uL Monocytes # (Manual) 1.85 H (0-1.0) k/uL ABG pH (7.35-7.45) ABG pCO2 (35-45) mmHg ABG pO2 (83-108) mmHg ABG HCO3 (21-25) mmol/L ABG Total CO2 (19-24) mmol/L ABG O2 Saturation (94-97) % Potassium 5.3 H (3.5-5.1) mmol/L Chloride (98-107) mmol/L Carbon Dioxide (22-30) mmol/L BUN (9-20) mg/dL Glucose (74-99) mg/dL POC Glucose (mg/dL) (70-110) mg/dL Procalcitonin 0.25 H (0.02-0.09) ng/mL TSH (0.465-4.680) mIU/L 09/30/21 09/30/21 09/30/21 Range/Units 11:30 11:45 11:49 WBC (3.8-10.6) k/uL RBC (4.30-5.90) m/uL Hgb (13.0-17.5) gm/dL MCV (80.0-100.0) fL Neutrophils # (Manual) (1.3-7.7) k/uL Lymphocytes # (Manual) (1.0-4.8) k/uL Monocytes # (Manual) (0-1.0) k/uL ABG pH 7.26 L (7.35-7.45) ABG pCO2 89 H* (35-45) mmHg ABG pO2 153 H (83-108) mmHg ABG HCO3 40 H* (21-25) mmol/L ABG Total CO2 43 H (19-24) mmol/L ABG O2 Saturation 99.0 H (94-97) % Potassium (3.5-5.1) mmol/L Chloride (98-107) mmol/L Carbon Dioxide (22-30) mmol/L BUN (9-20) mg/dL Glucose (74-99) mg/dL POC Glucose (mg/dL) 116 H 119 H (70-110) mg/dL Procalcitonin (0.02-0.09) ng/mL TSH (0.465-4.680) mIU/L 09/30/21 09/30/21 09/30/21 Range/Units 17:58 20:20 23:54 WBC (3.8-10.6) k/uL RBC (4.30-5.90) m/uL Hgb (13.0-17.5) gm/dL MCV (80.0-100.0) fL Neutrophils # (Manual) (1.3-7.7) k/uL Lymphocytes # (Manual) (1.0-4.8) k/uL Monocytes # (Manual) (0-1.0) k/uL ABG pH (7.35-7.45) ABG pCO2 (35-45) mmHg ABG pO2 (83-108) mmHg ABG HCO3 (21-25) mmol/L ABG Total CO2 (19-24) mmol/L ABG O2 Saturation (94-97) % Potassium 5.3 H (3.5-5.1) mmol/L Chloride 96 L (98-107) mmol/L Carbon Dioxide 41 H* (22-30) mmol/L BUN 28 H (9-20) mg/dL Glucose 124 H (74-99) mg/dL POC Glucose (mg/dL) 119 H 126 H (70-110) mg/dL Procalcitonin (0.02-0.09) ng/mL TSH (0.465-4.680) mIU/L 10/01/21 10/01/21 10/01/21 Range/Units 05:53 05:53 06:33 WBC 30.5 H (3.8-10.6) k/uL RBC 3.85 L (4.30-5.90) m/uL Hgb 12.3 L (13.0-17.5) gm/dL MCV 101.7 H (80.0-100.0) fL Neutrophils # (Manual) (1.3-7.7) k/uL Lymphocytes # (Manual) (1.0-4.8) k/uL Monocytes # (Manual) (0-1.0) k/uL ABG pH (7.35-7.45) ABG pCO2 (35-45) mmHg ABG pO2 (83-108) mmHg ABG HCO3 (21-25) mmol/L ABG Total CO2 (19-24) mmol/L ABG O2 Saturation (94-97) % Potassium (3.5-5.1) mmol/L Chloride (98-107) mmol/L Carbon Dioxide 39 H (22-30) mmol/L BUN 29 H (9-20) mg/dL Glucose 128 H (74-99) mg/dL POC Glucose (mg/dL) 128 H (70-110) mg/dL Procalcitonin (0.02-0.09) ng/mL TSH 0.254 L (0.465-4.680) mIU/L Microbiology - Last 24 Hours (Table) 09/30/21 20:17 Urine Culture - Preliminary Urine,Catheterized 09/28/21 11:48 Blood Culture - Preliminary Blood No Growth after 48 hours
[2021-10-02 00:44] LABS: Glucose,Whole Blood 209 mg/dL (70-110)
[2021-10-02] MEDS: HEPARIN SODIUM,PORCINE/PF 5,000 UNIT/0.5 ML SYRINGE SQ SCH ×3 (01:39→16:10)
[2021-10-02] MEDS: PIPERACILLIN-TAZOBACTAM 3.375 GM in SODIUM CHLORIDE 0.9% 100 ML IVPB SCH ×3 (01:39→18:22)
[2021-10-02] MEDS: methylPREDNISolone SOD SUCCI 40 MG/ML 1 ML VIAL IV SCH ×3 (01:39→18:22)
[2021-10-02 06:16] LABS: African American GFR (CKD) >90 (>60 ml/min/1.73 sqM); Blood Urea Nitrogen 29 mg/dL (9-20); Calcium 8.3 mg/dL (8.4-10.2); Chloride 92 mmol/L (98-107); Glucose 143 mg/dL (74-99); Non-African American GFR(CKD) >90 (>60 ml/min/1.73 sqM); Potassium 4.6 mmol/L (3.5-5.1); Sodium 135 mmol/L (137-145)
[2021-10-02 06:22] LABS: Anion Gap 1 mmol/L
[2021-10-02 06:22] LABS: Glucose,Whole Blood 127 mg/dL (70-110)
[2021-10-02 06:33] LABS: Carbon Dioxide 42 mmol/L (22-30); HCT 39.2 % (39.0-53.0); HGB 12.1 gm/dL (13.0-17.5); Hypochromasia Marked; MCH 31.6 pg (25.0-35.0); MCHC 30.9 g/dL (31.0-37.0); MCV 102.3 fL (80.0-100.0); Macrocytosis Slight; Mean Platelet Volume 7.5; Platelet Count 204 k/uL (150-450); RBC 3.83 m/uL (4.30-5.90); RDW 13.3 % (11.5-15.5)
[2021-10-02] MEDS: IPRATROPIUM-ALBUTEROL 3 ML NEB INHALATION SCH ×4 (07:58→19:39)
--- NOTE | 2021-10-02 10:01 | P.PN ---
Subjective Patient is seen in follow-up for hyponatremia. Sodium level 135. Potassium level normal. Off vasopressors. Tolerating chopped diet. Remains confused. Vital signs are stable. General: Awake. No acute distress. HEENT: Head exam is unremarkable. LUNGS: Breath sounds decreased. HEART: Rate and Rhythm are regular. ABDOMEN: Soft, no distention. EXTREMITITES: No edema. Objective - Vital Signs Vital signs: Vital Signs Temp 98.7 F 10/02/21 04:00 Pulse 87 10/02/21 08:09 Resp 23 10/02/21 07:00 BP 146/87 10/02/21 07:00 Pulse Ox 97 10/02/21 07:58 FiO2 100 10/02/21 07:00 Intake & Output 10/01/21 10/02/21 10/02/21 18:59 06:59 18:59 Intake Total 1744.211 587.663 20 Output Total 665 660 125 Balance 1079.211 -72.337 -105 Weight 82 kg Intake: IV 440 340 20 .9 KVO 240 240 20 Piperacillin-Tazobactam 3 200 100 .375 gm In Sodium Chloride 0.9% 100 ml @ 25 mls/hr IVPB Q8H [facility] Rx#: [id number] Intake, IV Titration 104.211 7.663 Amount Dexmedetomidine/0.9% NaCl 104.211 7.663 (Pmx) 400 mcg In Empty Bag 1 bag @ 0.2 MCG/KG/HR 3.8 mls/hr IV .Q24H [facility] Rx#:[id number] Oral 1200 240 Output: Urine 665 660 125 Other: Voiding Method Indwelling Catheter Indwelling Catheter - Labs CBC & Chem 7: 10/02/21 05:30 10/02/21 05:30 Labs: Abnormal Lab Results - Last 24 Hours (Table) 10/01/21 10/01/21 10/01/21 Range/Units 11:21 11:30 18:11 WBC (3.8-10.6) k/uL RBC (4.30-5.90) m/uL Hgb (13.0-17.5) gm/dL MCV (80.0-100.0) fL MCHC (31.0-37.0) g/dL ABG pCO2 68 H (35-45) mmHg ABG pO2 156 H (83-108) mmHg ABG HCO3 43 H* (21-25) mmol/L ABG Total CO2 45 H (19-24) mmol/L ABG O2 Saturation 99.7 H (94-97) % Sodium (137-145) mmol/L Chloride (98-107) mmol/L Carbon Dioxide (22-30) mmol/L BUN (9-20) mg/dL Glucose (74-99) mg/dL POC Glucose (mg/dL) 168 H 242 H (70-110) mg/dL Calcium (8.4-10.2) mg/dL 10/02/21 10/02/21 10/02/21 Range/Units 00:43 05:30 05:30 WBC 36.0 H (3.8-10.6) k/uL RBC 3.83 L (4.30-5.90) m/uL Hgb 12.1 L (13.0-17.5) gm/dL MCV 102.3 H (80.0-100.0) fL MCHC 30.9 L (31.0-37.0) g/dL ABG pCO2 (35-45) mmHg ABG pO2 (83-108) mmHg ABG HCO3 (21-25) mmol/L ABG Total CO2 (19-24) mmol/L ABG O2 Saturation (94-97) % Sodium 135 L (137-145) mmol/L Chloride 92 L (98-107) mmol/L Carbon Dioxide 42 H* (22-30) mmol/L BUN 29 H (9-20) mg/dL Glucose 143 H (74-99) mg/dL POC Glucose (mg/dL) 209 H (70-110) mg/dL Calcium 8.3 L (8.4-10.2) mg/dL 10/02/21 Range/Units 06:19 WBC (3.8-10.6) k/uL RBC (4.30-5.90) m/uL Hgb (13.0-17.5) gm/dL MCV (80.0-100.0) fL MCHC (31.0-37.0) g/dL ABG pCO2 (35-45) mmHg ABG pO2 (83-108) mmHg ABG HCO3 (21-25) mmol/L ABG Total CO2 (19-24) mmol/L ABG O2 Saturation (94-97) % Sodium (137-145) mmol/L Chloride (98-107) mmol/L Carbon Dioxide (22-30) mmol/L BUN (9-20) mg/dL Glucose (74-99) mg/dL POC Glucose (mg/dL) 127 H (70-110) mg/dL Calcium (8.4-10.2) mg/dL Microbiology - Last 24 Hours (Table) 09/28/21 11:48 Blood Culture - Preliminary Blood No Growth after 72 hours Assessment and Plan Plan: Assessment: 1. Hyponatremia. Etiology is poor solute intake as well as SIADH from malignancy. Resolved. TSH 0.25 and normal free T4. 2. Hyperkalemia. Cortisol level was not low. Patient had severe leukocytosis which can lead to cell fragility/destruction leading to pseudohyperkalemia. Potassium normal today. 3. CLL/SLL. Hematology oncology following. 4. Shock status post Levophed. 5. Acute on chronic hypercapnic respiratory failure. 6. Metabolic alkalosis secondary to underlying composition for respiratory acidosis as well as steroids. Plan: Remains off IV fluids and vasopressors at this time. Okay to wean steroids from nephrology standpoint as cortisol level was not low. Encourage oral intake. Check ABG. Will give Diamox if needed.
[2021-10-02] MEDS: PANTOPRAZOLE 40 MG/10 ML VIAL IVP SCH (10:12)
[2021-10-02] MEDS: risperiDONE 2 MG TAB PO SCH ×2 (10:13→20:35)
--- NOTE | 2021-10-02 10:31 | P.PN ---
Subjective Progress Note Date: 10/02/21 Hypercapnia, altered mental status This is a 66-year-old male patient who has a history of schizophrenia currently on Invega, previous ventilatory dependent aspiration pneumonia, previous severe hyponatremia with SIADH, chronic obstructive pulmonary disease, hypertension, hyperlipidemia, lymphoma diagnosed in August 2019, chronic tobacco dependence. Yesterday his manager metrology found him to be short of breath with some cough and congestion. Today his room air oxygen reading was 88% and EMS was called. He did develop altered mental status. Normally he is A and O 3. In the emergency room he was quite obtunded. No response to sternal rub or painful stimulation. White count 88.8. Hemoglobin 13.4. Platelets 251. INR 1.0. Sodium 116. Potassium 5.1. Bicarb 34. BUN 10. Creatinine 0.49. Glucose 125. Coronary virus by PCR not detected. Arterial blood gases on 55% FiO2 revealed a PaO2 of 163, pCO2 of 101 and a pH of 7.16. Placed on BiPAP 12/6 and decreased to 35% FiO2. He is seen today in consultation in the emergency department. He remains quite obtunded. He does withdraw to pain. Some inappropriate words. Opening his eyes to pain. Chest x-ray reveals mild cardiomegaly and chronic parenchymal changes without acute pulmonary process. CT of the brain revealed no acute intracranial process. Some non-specific white matter changes, likely secondary to chronic small vessel ischemic disease. The patient is seen today 09/28/2021 in follow-up in the intensive care unit. He remains obtunded but arousable. He had is continued on BiPAP 12/6 and 90% FiO2. He is requiring Precedex at 0.3 mcg/kg/h. He's on norepinephrine at 4 mcg/m. He is receiving 3% saline at 50 MLS per hour. His x-ray reveals persistent left lower lobe infiltrate/effusion with atelectasis of the right lower lobe. White count 82.9. Hemoglobin 13.0. Neutrophils 16.5. Lymphocytes 63. Monocytes 3.32. Sodium 120. Potassium 5.8. Chloride 86. BUN 24. Creatinine 1.16. Glucose 134. Calcium 8.2. Heparin for DVT prophylaxis. Protonix for GI prophylaxis. The patient is seen today 09/29/2021 in follow-up in the intensive care unit. He is currently on BiPAP 12/6 and 60% FiO2. He remains on norepinephrine at 6.7 mcg/m. Precedex at 0.6 mcg/kg/h. He is more awake and alert today. Sodium 13 3. Potassium 4.8. Bicarb 33. BUN 30. Creatinine 0.97. Calcium 8.3. Glucose 179. Hypertonic saline had been discontinued. He is currently on Solu Cortef 100 mg IV every 6 hours, was given Lasix 40 mg IVP 1. On heparin for DVT prophylaxis. On 09/30/2021, the patient is being seen for a follow-up. The patient remains on Precedex is running at 0.4 mcg/kg per minute. IV fluids are at KVO patient on 10 L of oxygen by nasal cannula. He does not communicate a whole lot. Nevertheless, the patient stated that his breathing is nonlabored and is calm and comfortable. He has a congested cough. On examination has bronchospastic and wheezy. Note that the patient has abnormal blood work. The white cell count at 36.9 consistent with his underlying CLL. The white cell count is chronically elevated. Hemoglobin is at 12.9 with a platelet count of 28. Rest of the electrolytes are all within normal limits. 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 For now, the patient remains on IV Zosyn. The patient will need a follow-up blood gas liters alternating between high flow oxygen and BiPAP for respiratory support which is set at a pressure of 12 over 6 cm of water. 10/01/2021, the patient is awake and interactive and the patient is following commands and answering questions appropriately. Denies having any complaints. Noted the patient schizophrenia and overall history provided by the patient is quite limited. Nevertheless, his breathing is much more comfortable compared to yesterday. The patient is currently on a combination of bronchodilators, and steroids. Less bronchospastic and wheezy on today's evaluation. Oxygen level is also being weaned down to 4 L per minute nasal cannula. His pro calcitonin level is at 0.25 and the patient is still on Precedex and the rate has been Down to 0.4 mcg/kg per minute. On his blood work, the white cell count is at 30 which is still elevated related to his underlying CLL. The white cell count of 15.3. Sodium is 141 with a BUN of 29 and a creatinine of 0.8 and a serum bicarbonate of 39. No other significant events otherwise for now. The patient's condition is stable. The patient is currently off BiPAP and he has a BiPAP machine at the bedside. Note that the patient failed swallow evaluation yesterday. The same will be done today as the patient is much more alert and awake. Precedex will be weaned off and discontinued. Psychiatric consultation will be also obtained. 10/02/2021, the patient remains on a low-dose Precedex at 0.2 mcg/kg per minute. He is calm and comfortable. He passed a swallow evaluation yesterday and is able to swallow. He is on oxygen at 4 L per minute nasal cannula. He is still on bronchodilators and steroids. He is being gradually weaned off the Precedex. He was started on Risperdal at a dose of 2 mg by mouth twice a day per psychiatric recommendation. He is also receiving Haldol 4 mg on an as-needed basis. He is on IV Solu Medrol 40 mg every 8 hours. He is on IV Zosyn as an empiric antibiotic coverage. Blood work from today is showing a white cell count 36 which is chronically elevated related to CLL with a white cell count of 36 and a hemoglobin of 12.1 and platelet count of 204. BUN is at 29 with a crea tinine of 0.7 and serum bicarbonate of 42. Objective - Vital Signs Vital signs: Vital Signs Temp 98.7 F 10/02/21 04:00 Pulse 87 10/02/21 08:09 Resp 23 10/02/21 07:00 BP 146/87 10/02/21 07:00 Pulse Ox 97 10/02/21 07:58 FiO2 100 10/02/21 07:00 Intake & Output 10/01/21 10/02/21 10/02/21 18:59 06:59 18:59 Intake Total 1744.211 587.663 92.675 Output Total 665 660 125 Balance 1079.211 -72.337 -32.325 Weight 82 kg Intake: IV 440 340 20 .9 KVO 240 240 20 Piperacillin-Tazobactam 3 200 100 .375 gm In Sodium Chloride 0.9% 100 ml @ 25 mls/hr IVPB Q8H [facility] Rx#: [id number] Intake, IV Titration 104.211 7.663 72.675 Amount Dexmedetomidine/0.9% NaCl 104.211 7.663 72.675 (Pmx) 400 mcg In Empty Bag 1 bag @ 0.2 MCG/KG/HR 3.8 mls/hr IV .Q24H [facility] Rx#:[id number] Oral 1200 240 Output: Urine 665 660 125 Other: Voiding Method Indwelling Catheter Indwelling Catheter - Exam GENERAL EXAM: Awake, more alert today, 66-year-old male patient, on BiPAP 12/6 and 60% FiO2, alternating with high flow oxygen 4 L per minute nasal cannula HEAD: Normocephalic. EYES: Normal reaction of pupils, equal size. NOSE: Clear with pink turbinates. THROAT: No erythema or exudates. NECK: No masses, no JVD. CHEST: No chest wall deformity. LUNGS: Equal air entry with basilar crackles. Diminished breath on the patient is diffuse expiratory wheezes and crackles in the lung mccartney bilaterally CVS: S1 and S2 normal with no audible murmur, regular rhythm. ABDOMEN: No hepatosplenomegaly, normal bowel sounds, no guarding or rigidity. SPINE: No scoliosis or deformity SKIN: No rashes CENTRAL NERVOUS SYSTEM: Arousable, tone is normal in all 4 extremities. EXTREMITIES: There is no peripheral edema. No clubbing, no cyanosis. Peripheral pulses are intact. - Labs CBC & Chem 7: 10/02/21 05:30 10/02/21 05:30 Labs: Abnormal Lab Results - Last 24 Hours (Table) 10/01/21 10/01/21 10/01/21 Range/Units 11:21 11:30 18:11 WBC (3.8-10.6) k/uL RBC (4.30-5.90) m/uL Hgb (13.0-17.5) gm/dL MCV (80.0-100.0) fL MCHC (31.0-37.0) g/dL ABG pCO2 68 H (35-45) mmHg ABG pO2 156 H (83-108) mmHg ABG HCO3 43 H* (21-25) mmol/L ABG Total CO2 45 H (19-24) mmol/L ABG O2 Saturation 99.7 H (94-97) % Sodium (137-145) mmol/L Chloride (98-107) mmol/L Carbon Dioxide (22-30) mmol/L BUN (9-20) mg/dL Glucose (74-99) mg/dL POC Glucose (mg/dL) 168 H 242 H (70-110) mg/dL Calcium (8.4-10.2) mg/dL 10/02/21 10/02/21 10/02/21 Range/Units 00:43 05:30 05:30 WBC 36.0 H (3.8-10.6) k/uL RBC 3.83 L (4.30-5.90) m/uL Hgb 12.1 L (13.0-17.5) gm/dL MCV 102.3 H (80.0-100.0) fL MCHC 30.9 L (31.0-37.0) g/dL ABG pCO2 (35-45) mmHg ABG pO2 (83-108) mmHg ABG HCO3 (21-25) mmol/L ABG Total CO2 (19-24) mmol/L ABG O2 Saturation (94-97) % Sodium 135 L (137-145) mmol/L Chloride 92 L (98-107) mmol/L Carbon Dioxide 42 H* (22-30) mmol/L BUN 29 H (9-20) mg/dL Glucose 143 H (74-99) mg/dL POC Glucose (mg/dL) 209 H (70-110) mg/dL Calcium 8.3 L (8.4-10.2) mg/dL 10/02/21 Range/Units 06:19 WBC (3.8-10.6) k/uL RBC (4.30-5.90) m/uL Hgb (13.0-17.5) gm/dL MCV (80.0-100.0) fL MCHC (31.0-37.0) g/dL ABG pCO2 (35-45) mmHg ABG pO2 (83-108) mmHg ABG HCO3 (21-25) mmol/L ABG Total CO2 (19-24) mmol/L ABG O2 Saturation (94-97) % Sodium (137-145) mmol/L Chloride (98-107) mmol/L Carbon Dioxide (22-30) mmol/L BUN (9-20) mg/dL Glucose (74-99) mg/dL POC Glucose (mg/dL) 127 H (70-110) mg/dL Calcium (8.4-10.2) mg/dL Microbiology - Last 24 Hours (Table) 09/28/21 11:48 Blood Culture - Preliminary Blood No Growth after 72 hours Assessment and Plan Plan: Altered mental status secondary mainly due to metabolic factors including chronic hypercapnic respiratory failure with acute decompensation addition to hyponatremia, clinically much improved compared to yesterday and the patient is able to communicate today without any major difficulties, and the patient remains on a low dose of Precedex which is running at 0.2 mcg/kg per minute. The patient will be taken off the Precedex today Acute hypoxic respiratory failure, on 4 L/min and BIPAP overnigt at 12/6,65% and the patient continues to have a left lower lobe consolidation consistent with possibility of an underlying pneumonia, and the follow-up chest x-ray shows some improvement in left lower lobe consolidation although there is some residual opacification of left hemidiaphragm. 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 The patient is currently on 4 L BiPAP will be used on and off during the day pressures of 12/6 cm of water Duoneb IV solumedrol 40 mg every 8 hours he Solu-Medrol will be continued for another 24 hours Continue Zosyn Repeat blood gases from yesterday showed improvement and acid base status. PH is 7.41 with a pCO2 of 68 and pO2 of 156 and this was done and FiO2 of 35% Past swallow evaluation Aspiration precautions Risperdal was added We'll move this patient out of the intensive care unit once off the Precedex. We'll continue IV Solu Medrol for another 24 hours and put him on prednisone burst taper as of tomorrow. We'll continue to follow. Condition is improving
[2021-10-02 11:29] LABS: Lymphocytes # (M) 27.36 k/uL (1.0-4.8); Neutrophils % (M) 21 %
[2021-10-02 11:30] LABS: Band Neutrophils % 1 %; Monocytes # (M) 1.08 k/uL (0-1.0); Nucleated Red Blood Cells 0 /100 WBC (0-0); Total Cells Counted 200
[2021-10-02 12:09] LABS: Glucose,Whole Blood 150 mg/dL (70-110)
[2021-10-02 12:42] LABS: ABG Base Excess 15.9 mmol/L; ABG Oxygen Saturation 98.7 % (94-97); ABG PCO2 56 mmHg (35-45); ABG PH 7.46 (7.35-7.45); ABG PO2 98 mmHg (83-108); ABG TCO2 42 mmol/L (19-24); Allen Test Performed? Yes
[2021-10-02 12:47] LABS: ABG HCO3 40 mmol/L (21-25)
[2021-10-02] MEDS ORDERED: PALIPERIDONE IM 234 MG/1.5 ML SYG IM STA (13:06)
--- NOTE | 2021-10-02 13:09 | P.PN ---
Progress Note - Text Progress Note Date: 10/02/21 Interval History: Patient was seen today for psychiatric follow up. Patient was laying in bed t cadence and watching TV. He was fairly directable during conversation and answer questions appropriately. He was not responding to internal stimuli today. We spoke about his Risperdal medication and he has been taking it. He states that it helps "clear my thoughts". He was denying any depression or anxiety today. No racing thoughts or flight of ideas. He without endorsing any delusions or paranoia. He claims that he slept fairly last night, fair appetite. We spoke about the long-acting injection and he will receive that today and is agreeable to it. At this time patient denies any suicidal or homical ideations, intent or plan. Patient denies any auditory, visual hallucinations and denies any paranoia or delusions. Patient denies any side effects from the medications and has been compliant with meds. Mental Status Exam: general Appearance: Patient appears to be overweight stated age is alert, attempts to cooperate. Not responding to internal stimuli. Patient appears to have improving hygiene and grooming. Behavior: Patient is seated without any agitated behavior. Attempts to cooperate, improving. Speech: Patient's speech is fluent and nonpressured. Floyd and monotone, improving mildly Mood/Affect: Patient reports their mood is fair, affect is congruent and constricted. Suicidality/Homicidality: Patient denies having any homicidal ideation intent or plan. Denies any suicidal ideations intent or plan Perceptions: Patient denies any visual hallucinations and denies any auditory hallucinations Though content/process: Floyd, poverty of content. Memory and concentration: AOX3, grossly intact for the purposes of this session Judgment and insight: Chronically poor IMPRESSIONS: Schizophrenia Nicotine dependence PLAN: -WIll continue to monitor and follow along to see if patient actually needs psych admission or not. -Patient DOES NOT have decision making capacity at this time and is unable to reason through and communicate/appreciate the risks, benefits and alternatives to treatment. -Would recommend the following medication changes/additions: Risperdal 2 mg by mouth twice a day for psychosis, we'll continue on for 3 more days then discontinue. will give Invega sustenna 234 mg IM injection today as patient had [facility]. Patients next invega sustenna 234 mg Im dose will be due on 10/30 and will be given at [facility]. -Communicated plan to patient's nurse -at this time psychiatry will sign off. -Please contact with any questions.
[2021-10-02] MEDS ORDERED: acetaZOLAMIDE 250 MG TAB PO SCH (15:16)
[2021-10-02 16:46] LABS: Magnesium 1.8 mg/dL (1.6-2.3); Phosphorus 2.9 mg/dL (2.5-4.5); Potassium 4.8 mmol/L (3.5-5.1)
[2021-10-02 16:51] LABS: Glucose,Whole Blood 124 mg/dL (70-110)
[2021-10-03] MEDS: methylPREDNISolone SOD SUCCI 40 MG/ML 1 ML VIAL IV SCH ×2 (01:07→08:07)
[2021-10-03] MEDS: HEPARIN SODIUM,PORCINE/PF 5,000 UNIT/0.5 ML SYRINGE SQ SCH ×4 (01:07→23:29)
[2021-10-03] MEDS: PIPERACILLIN-TAZOBACTAM 3.375 GM in SODIUM CHLORIDE 0.9% 100 ML IVPB SCH ×3 (01:08→16:01)
[2021-10-03 01:18] LABS: Glucose,Whole Blood 147 mg/dL (70-110)
--- NOTE | 2021-10-03 04:46 | P.PN ---
Subjective Progress Note Date: 10/02/21 Patient is a 66-year-old male with a known history of hypertension, hyperlipidemia, diabetes type 2, history of CVA with left hemiparesis, chronic hypercapnic respiratory failure, hyponatremia and mediastinal lymphadenopathy/lymphoma, schizophrenia and currently everyday smoker and a history of cocaine use was brought to ER by EMS. Patient's guardian noted that he was a little bit congested and shortness of breath is worse compared to yesterday and called EMS. Pulse ox was 88% on room air. Patient cannot provide any history at this time. Patient also developed altered mental status. Alert awake alert and oriented x3 at baseline. Chest x-ray showed mild cardiomegaly and chronic parenchymal changes without acute pulmonary process. CT head showed no acute intracranial process. Nonspecific white matter changes likely secondary to chronic small vessel ischemic disease. ABG showed pH 7.16 PCO2 101 PO2 163 and laboratory data showed WBC 88.8 hemoglobin 13.4 and platelets 251 Sodium 116 potassium 5.1 chloride 81 bicarb is 34 BUN 10 and creatinine 0.49 and lactic acid 0.6 calcium 7.8 and magnesium 1.9 liver enzymes are not elevated troponin x1 negative proBNP 4310 and coronavirus PCR not detected. 09/28/2021 Patient is currently in the MICU. Patient is being continued on BiPAP with FiO2 90%. Currently on norepinephrine drip and also requiring Precedex. Patient is able to open his eyes with verbal stimuli. Could not communicate. Chest x-ray showed persistent left lower lobe infiltrate and/or effusion as well as discoid atelectasis right lower lobe. Patient is being continued on normal saline at 75 cc/h. Was started on hypertonic saline as per nephrology recommendations. Laboratory showed sodium improved to 125, potassium 5.3 chloride 89 bicarb is 31 BUN 28 and creatinine 1.61. Cortisol level is 44. WBC 2.9 hemoglobin 13.0 and platelets 286. Lymphocytes 63. Pulmonary, nephrology and oncology is on board. 09/29 2021 Patient is in the MICU. Off BiPAP this morning for a brief period and started back again. Patient is more awake and able to open his eyes and follow simple commands. Could not communicate otherwise. Patient is also requiring norepinephrine drip and also on Precedex. Patient was started on hydrocortisone 100 mg every 6 hourly due to hypotension and was also given 1 dose of IV Lasix. Laboratory showed sodium level improved to 133 potassium 4.8 chloride 99 bicarb is 33 BUN 30 and creatinine 0.97 and calcium 8.3. Nephrology and pulmonary is on board. Current medications reviewed. 09/30/2021 Patient is seen in follow-up continues to be in the ICU with multiple medical consultations following including pulmonary routeman. Patient was maintained on BiPAP overnight currently maintained on high flow nasal cannula at 8-10 L and tolerating well. WBC continues to be elevated at 36.9, hemoglobin is 12.9, platelets are 228, sodium 137 with a potassium of 5.6 and appears hemolyzed and current creatinine is 0.75 with a repeat potassium ordered. Pro-calcitonin at 0.25. Repeat potassium is ordered and pending. Patient is maintained on a lbuterol along with IV steroids and is off pressor support at this time. Patient also continues on IV Zosyn and hypertonic solution has been discontinued and patient did receive some Solu-Cortef. Hematology oncology following for lymphocytic lymphoma. Patient is currently afebrile and denies any chest pain. Patient continues with shortness of breath and has overall generalized weakness 10/01/2021 Patient continues to be in the ICU with multiple medical consultations following. Patient is currently maintained on 4 L high flow and wean as tolerated with oxygen saturation of 96%. Patient with low-grade temp of 99.4 with blood cultures being negative and urine culture received and pending. Patient is maintained on Zosyn along with IV steroids and low-dose Precedex along with breathing inhalational treatments. Chest x-ray today shows improved aeration of the left lung base with residual atelectasis and/or infiltrate with small bilateral pleural effusions noted. White blood count trending down at 30.5 and hemoglobin is 12.3 with platelets of 196. Potassium slightly improved at 5.0 and sodium is 141 with a creatinine of 0.83. Currently awaiting psych eval and swallow eval. Patient denies chest pain or shortness of breath. Patient is asking for food and pop. Patient is afebrile and denies worsening shortness of breath. 10/02/2021 Patient is seen today and in the ICU with nephrology, pulmonary, and, psychiatry following closely. Patient has passed his swallow eval and is maintained on dysphagia diet and recommend aspiration precautions. Patient is also continued on IV zosyn and IV steroids. Patient weaning as tolerated and is on 4L via NC. Psych medications have been resumed. Patient is being weaned off precidex and has been stopped for one hour now. Per nursing staff, patient is having some pvc, pacs, with a 5 beat run of vtac on the monitor and is asymptomatic. Will consult cardiology and appreciate input and recommendations. Oncology following as well. Recommend to repeat labs in the am. Possible transfer out of the ICU if doing well off precedex. Patient is afebrile and denies any chest pain or palpitations. Active Medications Acetazolamide (Acetazolamide 250 Mg Tab) 250 mg PO BID [facility] Stop: 10/02/21 21:01 Albuterol/Ipratropium (Ipratropium-Albuterol 3 Ml Neb) 3 ml INHALATION RT-QID [facility] Last Admin: 10/02/21 12:01 Dose: 3 ml Albuterol/Ipratropium (Ipratropium-Albuterol 3 Ml Neb) 3 ml INHALATION RT-Q2H PRN PRN Reason: Shortness Of Breath Or Wheezing Haloperidol Lactate (Haloperidol Lactate 5 Mg/Ml 1 Ml Vial) 4 mg IM Q4HR PRN PRN Reason: Agitation or Acute Psychosis Heparin Sodium (Porcine) (Heparin Sodium,Porcine/Pf 5,000 Unit/0.5 Ml Syringe) 5,000 unit SQ Q8HR [facility] Last Admin: 10/02/21 10:12 Dose: 5,000 unit Piperacillin Sod/Tazobactam (Sod 3.375 gm/ Sodium Chloride) 100 mls @ 25 mls/hr IVPB Q8H [facility]; Protocol Last Admin: 10/02/21 10:17 Dose: 25 mls/hr Methylprednisolone Sodium Succinate (Methylprednisolone Sod Succi 40 Mg/Ml 1 Ml Vial) 40 mg IV Q8H [facility] Last Admin: 10/02/21 10:17 Dose: 40 mg Naloxone HCl (Naloxone 0.4 Mg/Ml 1 Ml Vial) 0.2 mg IV Q2M PRN PRN Reason: Opioid Reversal Pantoprazole Sodium (Pantoprazole 40 Mg/10 Ml Vial) 40 mg IVP DAILY [facility] Last Admin: 10/02/21 10:12 Dose: 40 mg Risperidone (Risperidone 2 Mg Tab) 2 mg PO BID [facility] Stop: 10/04/21 23:00 PHYSICAL EXAMINATION: Patient is sitting up in the bed. awake and alert, no acute distress. Currently maintained on high flow 4 L nasal cannula HEENT: Normocephalic. Neck is supple. Pupils reactive. Nostrils clear. Oral cavity is moist. Neck reveals no JVD, carotid bruits, or thyromegaly. CHEST EXAMINATION: Trachea is central. Symmetrical expansion. Bibasilar diminished sounds. Scattered coarse sounds with some scattered crackles noted.. CARDIAC: Normal S1, S2 with no gallops. No murmurs ABDOMEN: Soft. Bowel sounds present. Nontender. No organomegaly. No abdominal bruits. Extremities: reveal no edema. No clubbing or cyanosis Neurologically. Patient is Awake alert and follows simple commands. communicating more . Diffuse weakness Skin: No rash or skin lesions. Psychiatric: .cooperative Musculoskeletal: No joint swelling or deformity. Assessment: Altered mental status due to metabolic encephalopathy and hypoxic and hypercapnic respiratory failure. 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 Hypertension. Diabetes type 2 COPD Chronic hypercapnic respiratory failure on home oxygen Schizophrenia History of incarceration Ongoing nicotine addiction History of cocaine use Previous hospitalization with aspiration pneumonia and VDRF DVT prophylaxis with heparin subcu CODE STATUS DNR/DNI Plan: Patient is on currently maintained on 4 L NC. Precedex has been weaned, possible downgrade from the ICU nephrology is on board due to severe hyponatremia. improved Patient passed swallow evaluation and started on dysphagia 3, nectar thickened diet, and recommend aspiration precautions. psychiatry following as well. Psych meds resumed. Continue with insulin sliding scale and continue to monitor Accu-Cheks before meals and at bedtime. Will discuss with social work about discharge planning and treatment plan moving forward. Prognosis is guarded at this time. The impression and plan of care has been dictated by Martita Enrique, Nurse Practitioner as directed. Dr. Link MD I have performed a history and examination and MDM of this patient, discussed the same with the dictator, and agree with the dictator's assessment and plan as written ,documented as a scribe. Based on total visit time, I have performed more than 50% of the visit. Objective - Vital Signs Vital signs: Vital Signs Temp 98.7 F 10/02/21 04:00 Pulse 87 10/02/21 08:09 Resp 23 10/02/21 07:00 BP 146/87 10/02/21 07:00 Pulse Ox 97 10/02/21 07:58 FiO2 100 10/02/21 07:00 Intake & Output 10/01/21 10/02/21 10/02/21 18:59 06:59 18:59 Intake Total 1744.211 587.663 20 Output Total 665 660 125 Balance 1079.211 -72.337 -105 Weight 82 kg Intake: IV 440 340 20 .9 KVO 240 240 20 Piperacillin-Tazobactam 3 200 100 .375 gm In Sodium Chloride 0.9% 100 ml @ 25 mls/hr IVPB Q8H [facility] Rx#: [id number] Intake, IV Titration 104.211 7.663 Amount Dexmedetomidine/0.9% NaCl 104.211 7.663 (Pmx) 400 mcg In Empty Bag 1 bag @ 0.2 MCG/KG/HR 3.8 mls/hr IV .Q24H [facility] Rx#:[id number] Oral 1200 240 Output: Urine 665 660 125 Other: Voiding Method Indwelling Catheter Indwelling Catheter - Labs CBC & Chem 7: 10/02/21 05:30 10/02/21 16:20 Labs: Abnormal Lab Results - Last 24 Hours (Table) 10/01/21 10/01/21 10/01/21 Range/Units 11:21 11:30 18:11 WBC (3.8-10.6) k/uL RBC (4.30-5.90) m/uL Hgb (13.0-17.5) gm/dL MCV (80.0-100.0) fL MCHC (31.0-37.0) g/dL ABG pCO2 68 H (35-45) mmHg ABG pO2 156 H (83-108) mmHg ABG HCO3 43 H* (21-25) mmol/L ABG Total CO2 45 H (19-24) mmol/L ABG O2 Saturation 99.7 H (94-97) % Sodium (137-145) mmol/L Chloride (98-107) mmol/L Carbon Dioxide (22-30) mmol/L BUN (9-20) mg/dL Glucose (74-99) mg/dL POC Glucose (mg/dL) 168 H 242 H (70-110) mg/dL Calcium (8.4-10.2) mg/dL 10/02/21 10/02/21 10/02/21 Range/Units 00:43 05:30 05:30 WBC 36.0 H (3.8-10.6) k/uL RBC 3.83 L (4.30-5.90) m/uL Hgb 12.1 L (13.0-17.5) gm/dL MCV 102.3 H (80.0-100.0) fL MCHC 30.9 L (31.0-37.0) g/dL ABG pCO2 (35-45) mmHg ABG pO2 (83-108) mmHg ABG HCO3 (21-25) mmol/L ABG Total CO2 (19-24) mmol/L ABG O2 Saturation (94-97) % Sodium 135 L (137-145) mmol/L Chloride 92 L (98-107) mmol/L Carbon Dioxide 42 H* (22-30) mmol/L BUN 29 H (9-20) mg/dL Glucose 143 H (74-99) mg/dL POC Glucose (mg/dL) 209 H (70-110) mg/dL Calcium 8.3 L (8.4-10.2) mg/dL 10/02/21 Range/Units 06:19 WBC (3.8-10.6) k/uL RBC (4.30-5.90) m/uL Hgb (13.0-17.5) gm/dL MCV (80.0-100.0) fL MCHC (31.0-37.0) g/dL ABG pCO2 (35-45) mmHg ABG pO2 (83-108) mmHg ABG HCO3 (21-25) mmol/L ABG Total CO2 (19-24) mmol/L ABG O2 Saturation (94-97) % Sodium (137-145) mmol/L Chloride (98-107) mmol/L Carbon Dioxide (22-30) mmol/L BUN (9-20) mg/dL Glucose (74-99) mg/dL POC Glucose (mg/dL) 127 H (70-110) mg/dL Calcium (8.4-10.2) mg/dL Microbiology - Last 24 Hours (Table) 09/28/21 11:48 Blood Culture - Preliminary Blood No Growth after 72 hours
[2021-10-03] MEDS ORDERED: acetaZOLAMIDE 250 MG TAB PO ONE (05:00)
[2021-10-03 06:22] LABS: Glucose,Whole Blood 124 mg/dL (70-110)
[2021-10-03 06:29] LABS: HCT 41.6 % (39.0-53.0); HGB 12.8 gm/dL (13.0-17.5); Hypochromasia Marked; MCH 32.3 pg (25.0-35.0); MCHC 30.7 g/dL (31.0-37.0); Macrocytosis Slight; Mean Platelet Volume 7.4; Platelet Count 225 k/uL (150-450); RBC 3.96 m/uL (4.30-5.90); RDW 13.1 % (11.5-15.5); WBC 40.9 k/uL (3.8-10.6)
[2021-10-03 06:52] LABS: Lymphocytes # (M) 33.13 k/uL (1.0-4.8); Neutrophils # (M) 7.77 k/uL (1.3-7.7); Neutrophils % (M) 19 %; Nucleated Red Blood Cells 0 /100 WBC (0-0); Total Cells Counted 100
[2021-10-03 07:11] LABS: African American GFR (CKD) >90 (>60 ml/min/1.73 sqM); Anion Gap 1 mmol/L; Blood Urea Nitrogen 18 mg/dL (9-20); Calcium 8.3 mg/dL (8.4-10.2); Carbon Dioxide 37 mmol/L (22-30); Chloride 97 mmol/L (98-107); Glucose 124 mg/dL (74-99); Non-African American GFR(CKD) >90 (>60 ml/min/1.73 sqM); Potassium 4.8 mmol/L (3.5-5.1); Sodium 135 mmol/L (137-145)
[2021-10-03] MEDS: IPRATROPIUM-ALBUTEROL 3 ML NEB INHALATION SCH ×4 (07:37→19:25)
[2021-10-03] MEDS: PANTOPRAZOLE 40 MG/10 ML VIAL IVP SCH (08:07)
[2021-10-03] MEDS: risperiDONE 2 MG TAB PO SCH ×2 (08:07→20:47)
--- NOTE | 2021-10-03 10:02 | P.CRDCN ---
History of Present Illness Consult date: 10/03/21 Reason for Consult (text): Nonsustained ventricular tachycardia History of present illness: The patient is a 66-year-old male with extensive medical history including ventilatory dependent aspiration pneumonia, severe hyponatremia with SIADH, and schizophrenia, who is currently admitted to the hospital with hypoxia and mental status changes. At the time of admission his pulse ox was in the 80s and he was subsequently started on BiPAP therapy. Chest x-ray revealed persistent left lower lobe infiltrate and effusion with atelectasis in the right lower lobe. Cardiology has been consulted for runs of nonsustained ventricular tachycardia. DIAGNOSTICS: Chest x-ray shows improved aeration of the left lung base with residual atelectasis and small bilateral pleural effusions Telemetry shows sinus rhythm with PACs and PVCs. One 6-beat run of NSVT WBC 40.9, hemoglobin 12.8, hematocrit 41.6, platelets 225, sodium 135, potassium 4.0, BUN 18, creatinine 0.87, magnesium 2.0, BNP 4710 Blood pressure 107/72, pulse 114, respiratory rate 18, [place] 6% on 2 L nasal cannula, temperature 99.0 PAST MEDICAL HISTORY: Schizophrenia, SIADH, aspiration pneumonia, diabetes, hypertension, prior CVA, CLL, COPD REVIEW OF SYSTEMS: No fever or chills. No cough or expectoration. No diaphoresis. Patient denies headache, dizziness, blurred vision, double vision. Patient denies any stomach discomfort. No nausea, vomiting. No hematochezia. No hematemesis. Denies any black stools or blood in his stools. Denies dysuria or hematuria. No muscle weakness or numbness. No chest pain or chest pressure. No heart racing or fluttering. PHYSICAL EXAMINATION: This is a 66-year-old male in no apparent distress at the time of my examination. HEENT: Head is atraumatic, normocephalic. Pupils are equal, round. Sclerae anicteric. Conjunctivae are clear. Mucous membranes of the mouth are moist. Neck is supple. There is no jugular venous distention. No carotid bruit is heard. CHEST EXAMINATION: Lungs are diminished to auscultation. No chest wall tenderness is noted on palpation or with deep breathing. HEART EXAMINATION: Heart regular rate and rhythm. S1, S2 heard. No murmurs, gallops or rub. ABDOMEN: Soft, nontender. Bowel sounds are heard. No organomegaly noted. EXTREMITIES: 2+ left pedal pulse, 2+ right pedal pulse. Right lower extremity cool to touch. No evidence of peripheral edema and no calf tenderness noted. NEUROLOGIC EXAMINATION: Patient is awake, alert and oriented x2. FINAL ASSESSMENT AND PLAN: Nonsustained ventricular tachycardia Acute hypoxic respiratory failure Bilateral pneumonia Leukocytosis History of diabetes History of hypertension History of CVA PLAN: Echocardiogram and Doppler study Further recommendations based on clinical course I am dictating on behalf of Dr Andrea Garza's history/physical and assessment/plan. Past Medical History Past Medical History: COPD, CVA/TIA, Diabetes Mellitus, Hyperlipidemia, Hypertension, Pneumonia Additional Past Medical History / Comment(s): Previous history of CVA/L hemiparesis, NIDDM type II/diet controlled, chronic hypercapnic respiratory failure, previous aspiration pneumonia/vented, SIADH with severe hyponatremia, mediastinal lymphadenopathy/lymphoma, pansinusitis with possible mastoiditis on a CAT scan of the brain and MRI of the brain History of Any Multi-Drug Resistant Organisms: None Reported Past Surgical History: Orthopedic Surgery Additional Past Surgical History / Comment(s): sinus sx, lymph node biopsy Past Anesthesia/Blood Transfusion Reactions: No Reported Reaction Past Psychological History: Schizophrenia Additional Psychological History / Comment(s): Pt resides alone. He has Julien Adair as his legal guardian. Smoking Status: Current every day smoker Past Alcohol Use History: None Reported Past Drug Use History: Cocaine - Past Family History Father History Unknown: Yes Mother History Unknown: Yes Medications and Allergies Home Medications Medication Instructions Recorded Confirmed Type Acetaminophen Tab [Tylenol] 650 mg PO BID 09/27/21 09/27/21 History Cholecalciferol [Vitamin D3 (25 25 mcg PO DAILY 09/27/21 09/27/21 History Mcg = 1000 Iu)] Ketoconazole 2% Cream [Nizoral 2%] 1 applic TOPICAL DIRECTED 09/27/21 09/27/21 History Multivitamins, Thera [Multivitamin 1 tab PO DAILY 09/27/21 09/27/21 History (formulary)] Paliperidone IM [Invega Sustenna] 234 mg IM Q28D 09/27/21 09/27/21 History Allergies Allergy/AdvReac Type Severity Reaction Status Date / Time Sulfa (Sulfonamide Allergy Rash/Hives Verified 03/01/21 11:19 Antibiotics) Physical Exam Vitals: Vital Signs Temp Pulse Resp BP Pulse Ox 10/03/21 08:00 99 F 114 H 18 107/72 96 10/03/21 07:51 102 H 10/03/21 07:38 109 H 10/03/21 07:00 114 H 22 122/78 98 10/03/21 06:00 104 H 18 121/59 97 10/03/21 05:00 95 20 116/80 98 10/03/21 04:00 99.5 F 96 11 L 145/87 99 10/03/21 03:00 95 14 147/79 97 10/03/21 02:00 98 14 134/80 98 10/03/21 01:00 89 15 135/81 97 10/03/21 00:00 101 H 17 148/81 97 10/02/21 23:52 98.1 F 104 H 22 148/81 98 10/02/21 23:00 104 H 24 144/76 99 10/02/21 22:00 95 18 142/78 98 10/02/21 21:00 103 H 19 148/83 97 10/02/21 20:00 99.1 F 89 17 139/97 99 10/02/21 19:40 87 10/02/21 19:00 92 21 145/88 99 10/02/21 18:00 101 H 11 L 97 10/02/21 17:00 110 H 15 136/83 98 10/02/21 16:00 98.8 F 89 14 161/97 98 10/02/21 15:49 88 21 10/02/21 15:00 91 17 170/94 96 10/02/21 14:00 90 13 170/94 96 10/02/21 13:00 87 11 L 151/117 96 10/02/21 12:13 83 10/02/21 12:01 84 10/02/21 12:00 99.0 F 88 18 150/98 97 10/02/21 11:00 78 14 139/84 96 10/02/21 10:00 85 24 127/88 95 10/02/21 09:00 89 18 118/88 94 L Intake and Output 10/02/21 10/03/21 10/03/21 22:59 06:59 14:59 Intake Total 1344 671 140 Output Total 2175 2167 500 Balance -203 -3544 -940 Intake: IV 170 200 140 .9 KVO 120 100 40 Piperacillin-Tazobactam 3 50 100 100 .375 gm In Sodium Chloride 0.9% 100 ml @ 25 mls/hr IVPB Q8H [facility] Rx#: [id number] Oral [id number] Output: Urine 9656 2164 500 Other: Voiding Method Indwelling Catheter Indwelling Catheter Indwelling Catheter Weight 77.8 kg Results 10/03/21 05:36 10/03/21 05:36 CBC 10/03/21 Range/Units 05:36 WBC 40.9 H (3.8-10.6) k/uL RBC 3.96 L (4.30-5.90) m/uL Hgb 12.8 L (13.0-17.5) gm/dL Hct 41.6 (39.0-53.0) % Plt Count 225 (150-450) k/uL Comprehensive Metabolic Panel 10/02/21 10/03/21 Range/Units 16:20 05:36 Sodium 135 L (137-145) mmol/L Potassium 4.8 4.8 (3.5-5.1) mmol/L Chloride 97 L (98-107) mmol/L Carbon Dioxide 37 H (22-30) mmol/L BUN 18 (9-20) mg/dL Creatinine 0.87 (0.66-1.25) mg/dL Glucose 124 H (74-99) mg/dL Calcium 8.3 L (8.4-10.2) mg/dL Current Medications Generic Name Dose Route Start Last Admin Trade Name Freq PRN Reason Stop Dose Admin Albuterol/Ipratropium 3 ml 09/30/21 12:00 10/03/21 07:37 Ipratropium-Albuterol 3 Ml Neb INHALATION 3 ml RT-QID [facility] Administration Albuterol/Ipratropium 3 ml 09/30/21 09:16 Ipratropium-Albuterol 3 Ml Neb INHALATION RT-Q2H PRN Shortness Of Breath Or Wheezing Haloperidol Lactate 4 mg 09/29/21 09:37 Haloperidol Lactate 5 Mg/Ml 1 Ml Vial IM Q4HR PRN Agitation or Acute Psychosis Heparin Sodium (Porcine) 5,000 unit 09/28/21 09:30 10/03/21 08:07 Heparin Sodium,Porcine/Pf 5,000 Unit/0.5 Ml Syringe SQ 5,000 unit Q8HR [facility] Administration Piperacillin Sod/Tazobactam 100 mls @ 25 mls/hr 09/30/21 10:00 10/03/21 08:07 Sod 3.375 gm/ Sodium Chloride IVPB 25 mls/hr Q8H [facility] Administration Protocol Methylprednisolone Sodium Succinate 40 mg 09/30/21 10:00 10/03/21 08:07 Methylprednisolone Sod Succi 40 Mg/Ml 1 Ml Vial IV 40 mg Q8H [facility] Administration Naloxone HCl 0.2 mg 09/27/21 13:26 Naloxone 0.4 Mg/Ml 1 Ml Vial IV Q2M PRN Opioid Reversal Pantoprazole Sodium 40 mg 09/28/21 09:30 10/03/21 08:07 Pantoprazole 40 Mg/10 Ml Vial IVP 40 mg DAILY [facility] Administration Risperidone 2 mg 10/02/21 21:00 10/03/21 08:07 Risperidone 2 Mg Tab PO 10/04/21 23:00 2 mg BID [facility] Administration Intake and Output 10/02/21 10/03/21 10/03/21 22:59 06:59 14:59 Intake Total 1344 671 140 Output Total 2175 2167 500 Balance -416 -5840 -293 Intake: IV 170 200 140 .9 KVO 120 100 40 Piperacillin-Tazobactam 3 50 100 100 .375 gm In Sodium Chloride 0.9% 100 ml @ 25 mls/hr IVPB Q8H [facility] Rx#: [id number] Oral [id number] Output: Urine 2175 2167 500 Other: Voiding Method Indwelling Catheter Indwelling Catheter Indwelling Catheter Weight 77.8 kg 10/03/21 05:36 10/03/21 05:36
--- NOTE | 2021-10-03 12:26 | CA ---
Transthoracic Echo Report Name: Adam Valle Age: 66 Gender: M : 1955 Exam Date: 10/03/2021 10:25 Exam Location: [facility] Ht (in): 68 Wt (lb): 171 Ordering Physician: Iraida Major Attending/Referring Phys: [id number], [employer] Gisselle Schmidt RDCS Procedure CPT: Indications: frequent PAC Cardiac Hx: Technical Quality: Good Contrast 1: Total Dose (mL): Contrast 2: Total Dose (mL): MEASUREMENTS (Male / Female) Normal Values 2D ECHO LV Diastolic Diameter PLAX 4.2 cm 4.2 - 5.9 / 3.9 - 5.3 cm LV Systolic Diameter PLAX 2.6 cm IVS Diastolic Thickness 1.4 cm 0.6 - 1.0 / 0.6 - 0.9 cm LVPW Diastolic Thickness 1.3 cm 0.6 - 1.0 / 0.6 - 0.9 cm LV Relative Wall Thickness 0.6 RV Internal Dim ED PLAX 4.2 cm LA Systolic Diameter LX 3.3 cm 3.0 - 4.0 / 2.7 - 3.8 cm LA Volume 43.2 cm??? 18 - 58 / 22 - 52 cm??? M-MODE Aortic Root Diameter MM 4.2 cm MV E Point Septal Separation 0.4 cm AV Cusp Separation MM 2.7 cm DOPPLER AV Peak Velocity 140.5 cm/s AV Peak Gradient 7.9 mmHg MV Area PHT 2.7 cm??? Mitral E Point Velocity 67.5 cm/s Mitral A Point Velocity 112.8 cm/s Mitral E to A Ratio 0.6 MV Deceleration Time 284.2 ms MV E' Velocity 8.2 cm/s Mitral E to MV E' Ratio 8.3 TR Peak Velocity 272.9 cm/s TR Peak Gradient 29.8 mmHg Right Ventricular Systolic Press 33.3 mmHg PV Peak Velocity 196.0 cm/s PV Peak Gradient 15.4 mmHg FINDINGS Left Ventricle Left ventricular ejection fraction is estimated at 50-55 %. Left ventricular cavity size normal. Moderate concentric left ventricular hypertrophy. Right Ventricle Mild to moderate right ventricular dilatation. Normal right ventricular function Right Atrium Normal right atrial size. Left Atrium Normal left atrial size. No evidence for an atrial septal defect. Mitral Valve Structurally normal mitral valve. No mitral stenosis, regurgitation or prolapse. Aortic Valve Trileaflet aortic valve. Trace to mild aortic regurgitation. Tricuspid Valve Mild tricuspid regurgitation. Pulmonic Valve Structurally normal pulmonic valve. Pericardium Normal pericardium. No pericardial effusion. Aorta Moderate aortic dilatation at the level of the sinuses of valsalva 42 mm CONCLUSIONS Left ventricular ejection fraction 50-55% Moderate LVH Mild right ventricular dilation RVSP 33 Mild aortic regurgitation Mild tricuspid regurgitation No pericardial effusion Previewed by: Dr. Angelo Mujica DO (Electronically Signed) Final Date: 03 October 2021 12:25
--- NOTE | 2021-10-03 12:52 | P.PN ---
Subjective Patient is seen for follow-up for hyponatremia. Serum sodium is staying at 135. No significant complaints today. Good urine output Status post Diamox for metabolic alkalosis yesterday. Objective - Vital Signs Vital signs: Vital Signs Temp 99 F 10/03/21 08:00 Pulse 108 H 10/03/21 12:08 Resp 17 10/03/21 10:00 BP 104/68 10/03/21 10:00 Pulse Ox 96 10/03/21 10:00 FiO2 100 10/02/21 07:00 Intake & Output 10/02/21 10/03/21 10/03/21 18:59 06:59 18:59 Intake Total 4299.022 4045 180 Output Total 1533 3342 830 Balance -344.865 -2036 -650 Weight 77.8 kg Intake: IV 285 285 180 .9 KVO 160 160 80 Piperacillin-Tazobactam 3 125 125 100 .375 gm In Sodium Chloride 0.9% 100 ml @ 25 mls/hr IVPB Q8H [facility] Rx#: [id number] Intake, IV Titration 79.135 Amount Dexmedetomidine/0.9% NaCl 79.135 (Pmx) 400 mcg In Empty Bag 1 bag @ 0.2 MCG/KG/HR 3.8 mls/hr IV .Q24H [facility] Rx#:[id number] Oral 824 1021 Output: Urine 1533 3342 830 Other: Voiding Method Indwelling Catheter Indwelling Catheter Indwelling Catheter # Bowel Movements 1 - Exam Awake, comfortable, not in any acute distress Examination of the heart S1 and S2 Examination of the lungs bilateral breath sounds are heard Abdomen is soft nontender Examination of the lower extremity shows no significant edema - Labs CBC & Chem 7: 10/03/21 05:36 10/03/21 05:36 Labs: Abnormal Lab Results - Last 24 Hours (Table) 10/02/21 10/02/21 10/03/21 Range/Units 12:40 16:49 01:16 WBC (3.8-10.6) k/uL RBC (4.30-5.90) m/uL Hgb (13.0-17.5) gm/dL MCV (80.0-100.0) fL MCHC (31.0-37.0) g/dL Neutrophils # (Manual) (1.3-7.7) k/uL Lymphocytes # (Manual) (1.0-4.8) k/uL ABG pH 7.46 H (7.35-7.45) ABG pCO2 56 H (35-45) mmHg ABG HCO3 40 H* (21-25) mmol/L ABG Total CO2 42 H (19-24) mmol/L ABG O2 Saturation 98.7 H (94-97) % Sodium (137-145) mmol/L Chloride (98-107) mmol/L Carbon Dioxide (22-30) mmol/L Glucose (74-99) mg/dL POC Glucose (mg/dL) 124 H 147 H (70-110) mg/dL Calcium (8.4-10.2) mg/dL 10/03/21 10/03/21 10/03/21 Range/Units 05:36 05:36 06:21 WBC 40.9 H (3.8-10.6) k/uL RBC 3.96 L (4.30-5.90) m/uL Hgb 12.8 L (13.0-17.5) gm/dL MCV 105.0 H (80.0-100.0) fL MCHC 30.7 L (31.0-37.0) g/dL Neutrophils # (Manual) 7.77 H (1.3-7.7) k/uL Lymphocytes # (Manual) 33.13 H (1.0-4.8) k/uL ABG pH (7.35-7.45) ABG pCO2 (35-45) mmHg ABG HCO3 (21-25) mmol/L ABG Total CO2 (19-24) mmol/L ABG O2 Saturation (94-97) % Sodium 135 L (137-145) mmol/L Chloride 97 L (98-107) mmol/L Carbon Dioxide 37 H (22-30) mmol/L Glucose 124 H (74-99) mg/dL POC Glucose (mg/dL) 124 H (70-110) mg/dL Calcium 8.3 L (8.4-10.2) mg/dL Microbiology - Last 24 Hours (Table) 09/30/21 20:17 Urine Culture - Final Urine,Catheterized 09/28/21 11:48 Blood Culture - Preliminary Blood No Growth after 96 hours Assessment and Plan Assessment: 1. Hyponatremia associated poor solute intake as well as component of SIADH. Currently improved with serum sodium at 135 today. 2. Hyperkalemia associated with severe leukocytosis 3. CLL/SLL 4. Acute on chronic hypercapnic respiratory failure 5. Metabolic alkalosis status post Diamox Plan: Continue to monitor electrolytes Increase oral intake particularly protein
[2021-10-03 12:58] LABS: Glucose,Whole Blood 142 mg/dL (70-110)
[2021-10-03 13:40] VITALS: BMI 26.0
--- NOTE | 2021-10-03 14:03 | P.PN ---
Subjective Progress Note Date: 10/03/21 Hypercapnia, altered mental status This is a 66-year-old male patient who has a history of schizophrenia currently on Invega, previous ventilatory dependent aspiration pneumonia, previous severe hyponatremia with SIADH, chronic obstructive pulmonary disease, hypertension, hyperlipidemia, lymphoma diagnosed in August 2019, chronic tobacco dependence. 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 Today his room air oxygen reading was 88% and EMS was called. He did develop altered mental status. Normally he is A and O 3. In the emergency room he was quite obtunded. No response to sternal rub or painful stimulation. White count 88.8. Hemoglobin 13.4. Platelets 251. INR 1.0. Sodium 116. Potassium 5.1. Bicarb 34. BUN 10. Creatinine 0.49. Glucose 125. Coronary virus by PCR not detected. Arterial blood gases on 55% FiO2 revealed a PaO2 of 163, pCO2 of 101 and a pH of 7.16. Placed on BiPAP 12/6 and decreased to 35% FiO2. He is seen today in consultation in the emergency department. He remains quite obtunded. He does withdraw to pain. Some inappropriate words. Opening his eyes to pain. Chest x-ray reveals mild cardiomegaly and chronic parenchymal changes without acute pulmonary process. CT of the brain revealed no acute intracranial process. Some non-specific white matter changes, likely secondary to chronic small vessel ischemic disease. The patient is seen today 09/28/2021 in follow-up in the intensive care unit. He remains obtunded but arousable. He had is continued on BiPAP 12/6 and 90% FiO2. He is requiring Precedex at 0.3 mcg/kg/h. He's on norepinephrine at 4 mcg/m. He is receiving 3% saline at 50 MLS per hour. His x-ray reveals persistent left lower lobe infiltrate/effusion with atelectasis of the right lower lobe. White count 82.9. Hemoglobin 13.0. Neutrophils 16.5. Lymphocytes 63. Monocytes 3.32. Sodium 120. Potassium 5.8. Chloride 86. BUN 24. Creatinine 1.16. Glucose 134. Calcium 8.2. Heparin for DVT prophylaxis. Protonix for GI prophylaxis. The patient is seen today 09/29/2021 in follow-up in the intensive care unit. He is currently on BiPAP 12/6 and 60% FiO2. He remains on norepinephrine at 6.7 mcg/m. Precedex at 0.6 mcg/kg/h. He is more awake and alert today. Sodium 13 3. Potassium 4.8. Bicarb 33. BUN 30. Creatinine 0.97. Calcium 8.3. Glucose 179. Hypertonic saline had been discontinued. He is currently on Solu Cortef 100 mg IV every 6 hours, was given Lasix 40 mg IVP 1. On heparin for DVT prophylaxis. On 09/30/2021, the patient is being seen for a follow-up. The patient remains on Precedex is running at 0.4 mcg/kg per minute. IV fluids are at KVO patient on 10 L of oxygen by nasal cannula. He does not communicate a whole lot. Nevertheless, the patient stated that his breathing is nonlabored and is calm and comfortable. He has a congested cough. On examination has bronchospastic and wheezy. Note that the patient has abnormal blood work. The white cell count at 36.9 consistent with his underlying CLL. The white cell count is chronically elevated. Hemoglobin is at 12.9 with a platelet count of 28. Rest of the electrolytes are all within normal limits. 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 For now, the patient remains on IV Zosyn. The patient will need a follow-up blood gas liters alternating between high flow oxygen and BiPAP for respiratory support which is set at a pressure of 12 over 6 cm of water. 10/01/2021, the patient is awake and interactive and the patient is following commands and answering questions appropriately. Denies having any complaints. Noted the patient schizophrenia and overall history provided by the patient is quite limited. Nevertheless, his breathing is much more comfortable compared to yesterday. The patient is currently on a combination of bronchodilators, and steroids. Less bronchospastic and wheezy on today's evaluation. Oxygen level is also being weaned down to 4 L per minute nasal cannula. His pro calcitonin level is at 0.25 and the patient is still on Precedex and the rate has been Down to 0.4 mcg/kg per minute. On his blood work, the white cell count is at 30 which is still elevated related to his underlying CLL. The white cell count of 15.3. Sodium is 141 with a BUN of 29 and a creatinine of 0.8 and a serum bicarbonate of 39. No other significant events otherwise for now. The patient's condition is stable. The patient is currently off BiPAP and he has a BiPAP machine at the bedside. Note that the patient failed swallow evaluation yesterday. The same will be done today as the patient is much more alert and awake. Precedex will be weaned off and discontinued. Psychiatric consultation will be also obtained. 10/02/2021, the patient remains on a low-dose Precedex at 0.2 mcg/kg per minute. He is calm and comfortable. He passed a swallow evaluation yesterday and is able to swallow. He is on oxygen at 4 L per minute nasal cannula. He is still on bronchodilators and steroids. He is being gradually weaned off the Precedex. He was started on Risperdal at a dose of 2 mg by mouth twice a day per psychiatric recommendation. He is also receiving Haldol 4 mg on an as-needed basis. He is on IV Solu Medrol 40 mg every 8 hours. He is on IV Zosyn as an empiric antibiotic coverage. Blood work from today is showing a white cell count 36 which is chronically elevated related to CLL with a white cell count of 36 and a hemoglobin of 12.1 and platelet count of 204. BUN is at 29 with a crea tinine of 0.7 and serum bicarbonate of 42. 10/03/2021, the patient is off Precedex. The patient is able to swallow well. No respiratory difficulties. No cough sputum production chest tightness anxiety continues to have some limited wheezing. On the cardiac rhythm, the patient was noted to have some bigeminal rhythm and for that reason echocardiogram was ordered and a cardiology consultation will be also obtained. Meanwhile, the patient was started on Risperdal. The patient remains on IV Solu-Medrol. The patient remains on IV Zosyn and bronchodilators. His blood work essentially stable with a white cell count of 40.9 and hemoglobin 4.8 and a platelet count of 225. Sodium is at 135, BUN of 18 with a creatinine of 0.8. ProBNP level from today is 4700. He is communicating. No signs of any delirium. No agitation. The patient is currently off Precedex. Objective - Vital Signs Vital signs: Vital Signs Temp 98.5 F 10/03/21 12:00 Pulse 105 H 10/03/21 13:00 Resp 7 L 10/03/21 13:00 BP 110/67 10/03/21 13:00 Pulse Ox 94 L 10/03/21 13:00 FiO2 100 10/02/21 07:00 Intake & Output 10/02/21 10/03/21 10/03/21 18:59 06:59 18:59 Intake Total 3925.207 5045 240 Output Total 1533 3342 1405 Balance -344.865 -2036 -1165 Weight 77.8 kg 77.8 kg Intake: IV 285 285 240 .9 KVO 160 160 140 Piperacillin-Tazobactam 3 125 125 100 .375 gm In Sodium Chloride 0.9% 100 ml @ 25 mls/hr IVPB Q8H [facility] Rx#: [id number] Intake, IV Titration 79.135 Amount Dexmedetomidine/0.9% NaCl 79.135 (Pmx) 400 mcg In Empty Bag 1 bag @ 0.2 MCG/KG/HR 3.8 mls/hr IV .Q24H [facility] Rx#:[id number] Oral 824 1021 Output: Urine 1533 3342 1405 Other: Voiding Method Indwelling Catheter Indwelling Catheter Indwelling Catheter # Bowel Movements 1 - Exam GENERAL EXAM: Awake, more alert today, 66-year-old male patient, on BiPAP 12/6 and 60% FiO2, alternating with high flow oxygen 4 L per minute nasal cannula HEAD: Normocephalic. EYES: Normal reaction of pupils, equal size. NOSE: Clear with pink turbinates. THROAT: No erythema or exudates. NECK: No masses, no JVD. CHEST: No chest wall deformity. LUNGS: Equal air entry with basilar crackles. Diminished breath on the patient is diffuse expiratory wheezes and crackles in the lung m[place] bilaterally CVS: S1 and S2 normal with no audible murmur, regular rhythm. ABDOMEN: No hepatosplenomegaly, normal bowel sounds, no guarding or rigidity. SPINE: No scoliosis or deformity SKIN: No rashes CENTRAL NERVOUS SYSTEM: Arousable, tone is normal in all 4 extremities. EXTREMITIES: There is no peripheral edema. No clubbing, no cyanosis. Peripheral pulses are intact. - Labs CBC & Chem 7: 10/03/21 05:36 10/03/21 05:36 Labs: Abnormal Lab Results - Last 24 Hours (Table) 10/02/21 10/03/21 10/03/21 Range/Units 16:49 01:16 05:36 WBC 40.9 H (3.8-10.6) k/uL RBC 3.96 L (4.30-5.90) m/uL Hgb 12.8 L (13.0-17.5) gm/dL MCV 105.0 H (80.0-100.0) fL MCHC 30.7 L (31.0-37.0) g/dL Neutrophils # (Manual) 7.77 H (1.3-7.7) k/uL Lymphocytes # (Manual) 33.13 H (1.0-4.8) k/uL Sodium (137-145) mmol/L Chloride (98-107) mmol/L Carbon Dioxide (22-30) mmol/L Glucose (74-99) mg/dL POC Glucose (mg/dL) 124 H 147 H (70-110) mg/dL Calcium (8.4-10.2) mg/dL 10/03/21 10/03/21 10/03/21 Range/Units 05:36 06:21 12:56 WBC (3.8-10.6) k/uL RBC (4.30-5.90) m/uL Hgb (13.0-17.5) gm/dL MCV (80.0-100.0) fL MCHC (31.0-37.0) g/dL Neutrophils # (Manual) (1.3-7.7) k/uL Lymphocytes # (Manual) (1.0-4.8) k/uL Sodium 135 L (137-145) mmol/L Chloride 97 L (98-107) mmol/L Carbon Dioxide 37 H (22-30) mmol/L Glucose 124 H (74-99) mg/dL POC Glucose (mg/dL) 124 H 142 H (70-110) mg/dL Calcium 8.3 L (8.4-10.2) mg/dL Microbiology - Last 24 Hours (Table) 09/30/21 20:17 Urine Culture - Final Urine,Catheterized 09/28/21 11:48 Blood Culture - Preliminary Blood No Growth after 96 hours Assessment and Plan Plan: Altered mental status secondary mainly due to metabolic factors including chronic hypercapnic respiratory failure , improved and the patient's is currently off Precedex Acute hypoxic respiratory failure, on 2 L/min and BIPAP overnigt at 12/6,65% and the patient continues to have a left lower lobe consolidation consistent with possibility of an underlying pneumonia, and the follow-up chest x-ray shows some improvement in left lower lobe consolidation although there is some residual opacification of left hemidiaphragm. 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 The patient is currently on 2 L BiPAP will be used on and off during the day pressures of 12/6 cm of water Duoneb Discontinue the IV Solu Medrol and put the patient prednisone burst taper Continue Zosyn Aspiration precautions Risperdal to be continued The patient is currently off Precedex We'll move this patient out of the intensive care unit We'll continue to follow. Condition is improving
[2021-10-03 17:39] LABS: Glucose,Whole Blood 138 mg/dL (70-110)
[2021-10-03 18:08] LABS: Glucose,Whole Blood 117 mg/dL (70-110)
[2021-10-03 22:02] LABS: Glucose,Whole Blood 114 mg/dL (70-110)
[2021-10-03 23:42] LABS: Glucose,Whole Blood 99 mg/dL (70-110)
[2021-10-04] MEDS: PIPERACILLIN-TAZOBACTAM 3.375 GM in SODIUM CHLORIDE 0.9% 100 ML IVPB SCH ×2 (03:22→08:30)
[2021-10-04 06:11] LABS: Glucose,Whole Blood 85 mg/dL (70-110)
[2021-10-04 06:59] LABS: HCT 40.3 % (39.0-53.0); Hypochromasia Marked; MCH 30.6 pg (25.0-35.0); MCHC 29.7 g/dL (31.0-37.0); MCV 102.8 fL (80.0-100.0); Macrocytosis Slight; Mean Platelet Volume 7.2; Platelet Count 213 k/uL (150-450); RBC 3.92 m/uL (4.30-5.90); WBC 34.8 k/uL (3.8-10.6)
[2021-10-04 07:19] LABS: African American GFR (CKD) >90 (>60 ml/min/1.73 sqM); Anion Gap -1 mmol/L; Blood Urea Nitrogen 18 mg/dL (9-20); Carbon Dioxide 33 mmol/L (22-30); Chloride 103 mmol/L (98-107); Glucose 96 mg/dL (74-99); Non-African American GFR(CKD) 87 (>60 ml/min/1.73 sqM); Potassium 4.4 mmol/L (3.5-5.1); Sodium 135 mmol/L (137-145)
[2021-10-04] MEDS: IPRATROPIUM-ALBUTEROL 3 ML NEB INHALATION SCH ×4 (07:38→19:40)
--- NOTE | 2021-10-04 08:10 | P.PN ---
Subjective Progress Note Date: 10/04/21 PROGRESS NOTE The patient is a 66-year-old male with a known history of schizophrenia, prior respiratory failure, aspiration pneumonia who presented with change in mental status, metabolic encephalopathy and pneumonia. Cardiology consultation was requested because of nonsustained VT. He is awake, denies any chest discomfort, dizziness or palpitations. He continues to be in sinus mechanism. He had an echocardiogram that showed a normal systolic function with no significant valvular disease. Hemodynamically he is stable on no vasopressors. He denies any chest discomfort or palpitations. He has no evidence of recurrent ventricle tachycardia. Medications: Prednisone, Risperdal, DuoNeb, Haldol PHYSICAL EXAMINATION: Blood pressure 105/60 heart rate 98 LUNGS: Decreased breath sounds bilaterally with no wheezes HEART: Regular rate and rhythm, S1, S2. No S3. No systolic murmur ABDOMEN: Soft, nontender, no organomegaly EXTREMETIES: No edema LAB: Hemoglobin of 12, BUN and creatinine 18 and 0.93 IMPRESSION: 1. Change in mental status, improving with metabolic encephalopathy 2. Respiratory distress with possible pneumonia 3. Nonsustained VT, stable 4. Leukocytosis with known history of CLL 5. History of chronic tobacco use 6. History of cocaine use PLAN: 1. Add low-dose beta elia 2. Continue telemetry 3. Depending on his progress further recommendations will be made 4. We will see him on as-needed basis, please feel free to call us for any question. Objective - Vital Signs Vital signs: Vital Signs Temp 98.3 F 10/04/21 04:00 Pulse 101 H 10/04/21 07:51 Resp 14 10/04/21 07:00 BP 105/60 10/04/21 07:00 Pulse Ox 95 10/04/21 07:38 FiO2 100 10/02/21 07:00 Intake & Output 10/03/21 10/04/21 10/04/21 18:59 06:59 18:59 Intake Total 440 660 Output Total 2205 2430 Balance -1765 -177 Weight 77.8 kg 80.2 kg Intake: IV 440 300 .9 KVO 240 200 Piperacillin-Tazobactam 3 200 100 .375 gm In Sodium Chloride 0.9% 100 ml @ 25 mls/hr IVPB Q8H [facility] Rx#: [id number] Oral 360 Output: Urine 2205 2430 Other: Voiding Method Indwelling Catheter Indwelling Catheter - Labs CBC & Chem 7: 10/04/21 06:36 10/04/21 06:36 Labs: Abnormal Lab Results - Last 24 Hours (Table) 10/03/21 10/03/21 10/03/21 Range/Units 12:56 17:38 18:07 WBC (3.8-10.6) k/uL RBC (4.30-5.90) m/uL Hgb (13.0-17.5) gm/dL MCV (80.0-100.0) fL MCHC (31.0-37.0) g/dL Sodium (137-145) mmol/L Carbon Dioxide (22-30) mmol/L POC Glucose (mg/dL) 142 H 138 H 117 H (70-110) mg/dL Calcium (8.4-10.2) mg/dL 10/03/21 10/04/21 10/04/21 Range/Units 22:00 06:36 06:36 WBC 34.8 H (3.8-10.6) k/uL RBC 3.92 L (4.30-5.90) m/uL Hgb 12.0 L (13.0-17.5) gm/dL MCV 102.8 H (80.0-100.0) fL MCHC 29.7 L (31.0-37.0) g/dL Sodium 135 L (137-145) mmol/L Carbon Dioxide 33 H (22-30) mmol/L POC Glucose (mg/dL) 114 H (70-110) mg/dL Calcium 8.0 L (8.4-10.2) mg/dL Microbiology - Last 24 Hours (Table) 09/28/21 11:48 Blood Culture - Preliminary Blood No Growth after 120 hours
[2021-10-04] MEDS: HEPARIN SODIUM,PORCINE/PF 5,000 UNIT/0.5 ML SYRINGE SQ SCH ×3 (08:29→21:43)
[2021-10-04] MEDS: predniSONE 20 MG TAB PO SCH (08:30)
[2021-10-04] MEDS: risperiDONE 2 MG TAB PO SCH ×2 (08:30→21:43)
[2021-10-04] MEDS: PANTOPRAZOLE 40 MG/10 ML VIAL IVP SCH (08:30)
[2021-10-04] MEDS: METOPROLOL TARTRATE 25 MG TAB PO SCH ×2 (08:30→19:55)
--- NOTE | 2021-10-04 09:12 | P.PN ---
Subjective Progress Note Date: 10/04/21 Patient is a 66-year-old male with a known history of hypertension, hyperlipidemia, diabetes type 2, history of CVA with left hemiparesis, chronic hypercapnic respiratory failure, hyponatremia and mediastinal lymphadenopathy/lymphoma, schizophrenia and currently everyday smoker and a history of cocaine use was brought to ER by EMS. Patient's guardian noted that he was a little bit congested and shortness of breath is worse compared to yesterday and called EMS. Pulse ox was 88% on room air. Patient cannot provide any history at this time. Patient also developed altered mental status. Alert awake alert and oriented x3 at baseline. Chest x-ray showed mild cardiomegaly and chronic parenchymal changes without acute pulmonary process. CT head showed no acute intracranial process. Nonspecific white matter changes likely secondary to chronic small vessel ischemic disease. ABG showed pH 7.16 PCO2 101 PO2 163 and laboratory data showed WBC 88.8 hemoglobin 13.4 and platelets 251 Sodium 116 potassium 5.1 chloride 81 bicarb is 34 BUN 10 and creatinine 0.49 and lactic acid 0.6 calcium 7.8 and magnesium 1.9 liver enzymes are not elevated troponin x1 negative proBNP 4310 and coronavirus PCR not detected. 09/28/2021 Patient is currently in the MICU. Patient is being continued on BiPAP with FiO2 90%. Currently on norepinephrine drip and also requiring Precedex. Patient is able to open his eyes with verbal stimuli. Could not communicate. Chest x-ray showed persistent left lower lobe infiltrate and/or effusion as well as discoid atelectasis right lower lobe. Patient is being continued on normal saline at 75 cc/h. Was started on hypertonic saline as per nephrology recommendations. Laboratory showed sodium improved to 125, potassium 5.3 chloride 89 bicarb is 31 BUN 28 and creatinine 1.61. Cortisol level is 44. WBC 2.9 hemoglobin 13.0 and platelets 286. Lymphocytes 63. Pulmonary, nephrology and oncology is on board. 09/29 2021 Patient is in the MICU. Off BiPAP this morning for a brief period and started back again. Patient is more awake and able to open his eyes and follow simple commands. Could not communicate otherwise. Patient is also requiring norepinephrine drip and also on Precedex. Patient was started on hydrocortisone 100 mg every 6 hourly due to hypotension and was also given 1 dose of IV Lasix. Laboratory showed sodium level improved to 133 potassium 4.8 chloride 99 bicarb is 33 BUN 30 and creatinine 0.97 and calcium 8.3. Nephrology and pulmonary is on board. Current medications reviewed. 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 Patient was maintained on BiPAP overnight currently maintained on high flow nasal cannula at 8-10 L and tolerating well. WBC continues to be elevated at 36.9, hemoglobin is 12.9, platelets are 228, sodium 137 with a potassium of 5.6 and appears hemolyzed and current creatinine is 0.75 with a repeat potassium ordered. Pro-calcitonin at 0.25. Repeat potassium is ordered and pending. Patient is maintained on a lbuterol along with IV steroids and is off pressor support at this time. Patient also continues on IV Zosyn and hypertonic solution has been discontinued and patient did receive some Solu-Cortef. Hematology oncology following for lymphocytic lymphoma. Patient is currently afebrile and denies any chest pain. Patient continues with shortness of breath and has overall generalized weakness 10/01/2021 Patient continues to be in the ICU with multiple medical consultations following. Patient is currently maintained on 4 L high flow and wean as tolerated with oxygen saturation of 96%. Patient with low-grade temp of 99.4 with blood cultures being negative and urine culture received and pending. Patient is maintained on Zosyn along with IV steroids and low-dose Precedex along with breathing inhalational treatments. Chest x-ray today shows improved aeration of the left lung base with residual atelectasis and/or infiltrate with small bilateral pleural effusions noted. White blood count trending down at 30.5 and hemoglobin is 12.3 with platelets of 196. Potassium slightly improved at 5.0 and sodium is 141 with a creatinine of 0.83. Currently awaiting psych eval and swallow eval. Patient denies chest pain or shortness of breath. Patient is asking for food and pop. Patient is afebrile and denies worsening shortness of breath. 10/02/2021 Patient is seen today and in the ICU with nephrology, pulmonary, and, psychiatry following closely. Patient has passed his swallow eval and is maintained on dysphagia diet and recommend aspiration precautions. Patient is also continued on IV zosyn and IV steroids. Patient weaning as tolerated and is on 4L via NC. Psych medications have been resumed. Patient is being weaned off precidex and has been stopped for one hour now. Per nursing staff, patient is having some pvc, pacs, with a 5 beat run of vtac on the monitor and is asymptomatic. Will consult cardiology and appreciate input and recommendations. Oncology following as well. Recommend to repeat labs in the am. Possible transfer out of the ICU if doing well off precedex. Patient is afebrile and denies any chest pain or palpitations. 10/03/2021 Patient is seen this morning currently sleeping but arousable continued in the ICU with pulmonary, nephrology, psychiatry and cardiology following. Patient is maintained on breathing treatments along with IV Zosyn, Risperdal, and being transitioned to oral prednisone. Patient discontinued on 2 L today via nasal cannula and continuing to wean FiO2 as tolerated. Patient is tolerating diet and blood sugars are being monitored and not requiring any insulin. WBC mildly up at 40.9 from yesterday. 2-D echo was ordered and pending at this time. Patient is afebrile denies any chest pain or worsening shortness of breath. Rec ommend continue with aspiration precautions and head of the bed elevated 30-45 at all times. Active Medications Albuterol/Ipratropium (Ipratropium-Albuterol 3 Ml Neb) 3 ml INHALATION RT-QID [facility] Last Admin: 10/04/21 07:38 Dose: 3 ml Albuterol/Ipratropium (Ipratropium-Albuterol 3 Ml Neb) 3 ml INHALATION RT-Q2H PRN PRN Reason: Shortness Of Breath Or Wheezing Haloperidol Lactate (Haloperidol Lactate 5 Mg/Ml 1 Ml Vial) 4 mg IM Q4HR PRN PRN Reason: Agitation or Acute Psychosis Heparin Sodium (Porcine) (Heparin Sodium,Porcine/Pf 5,000 Unit/0.5 Ml Syringe) 5,000 unit SQ Q8HR [facility] Last Admin: 10/04/21 08:29 Dose: 5,000 unit Piperacillin Sod/Tazobactam (Sod 3.375 gm/ Sodium Chloride) 100 mls @ 25 mls/hr IVPB Q8H [facility]; Protocol Last Admin: 10/04/21 08:30 Dose: 25 mls/hr Metoprolol Tartrate (Metoprolol Tartrate 25 Mg Tab) 25 mg PO BID [facility] Last Admin: 10/04/21 08:30 Dose: 25 mg Naloxone HCl (Naloxone 0.4 Mg/Ml 1 Ml Vial) 0.2 mg IV Q2M PRN PRN Reason: Opioid Reversal Pantoprazole Sodium (Pantoprazole 40 Mg/10 Ml Vial) 40 mg IVP DAILY [facility] Last Admin: 10/04/21 08:30 Dose: 40 mg Prednisone (Prednisone 20 Mg Tab) 40 mg PO DAILY [facility] Last Admin: 10/04/21 08:30 Dose: 40 mg Risperidone (Risperidone 2 Mg Tab) 2 mg PO BID [facility] Stop: 10/04/21 23:00 Last Admin: 10/04/21 08:30 Dose: 2 mg PHYSICAL EXAMINATION: Patient is sitting up in the bed. awake and alert, no acute distress. Currently maintained on 2 L nasal cannula HEENT: Normocephalic. Neck is supple. Pupils reactive. Nostrils clear. Oral cavity is moist. Neck reveals no JVD, carotid bruits, or thyromegaly. CHEST EXAMINATION: Trachea is central. Symmetrical expansion. Bibasilar diminished sounds. Scattered coarse sounds noted.. CARDIAC: Normal S1, S2 with no gallops. No murmurs ABDOMEN: Soft. Bowel sounds present. Nontender. No organomegaly. No abdominal bruits. Extremities: reveal no edema. No clubbing or cyanosis Neurologically. Patient is Awake alert and follows simple commands. communicating more . Diffuse weakness Skin: No rash or skin lesions. Psychiatric: .cooperative Musculoskeletal: No joint swelling or deformity. Assessment: Altered mental status due to metabolic encephalopathy and hypoxic and hypercapnic respiratory failure. 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 Hypertension. Diabetes type 2 COPD Chronic hypercapnic respiratory failure on home oxygen Schizophrenia History of incarceration Ongoing nicotine addiction History of cocaine use Previous hospitalization with aspiration pneumonia and VDRF DVT prophylaxis with heparin subcu CODE STATUS DNR/DNI Plan: Patient is on currently maintained on 2 L NC. nephrology is on board due to severe hyponatremia. improved Patient continued on dysphagia 3, nectar thickened diet, and recommend aspirati on precautions. psychiatry following as well. Psych meds resumed. Continue with insulin sliding scale as needed and continue to monitor Accu-Cheks before meals and at bedtime. Patient's blood sugars have been controlled and not requiring any insulin Will discuss with social work about discharge planning and treatment plan moving forward. Patient does have a legal guardian and will most likely require some form of AFC or ECF on discharge Prognosis is guarded at this time. The impression and plan of care has been dictated by Martita Enrique, Nurse Practitioner as directed. Dr. Link MD I have performed a history and examination and MDM of this patient, discussed the same with the dictator, and agree with the dictator's assessment and plan as written ,documented as a scribe. Based on total visit time, I have performed more than 50% of the visit. Objective - Vital Signs Vital signs: Vital Signs Temp 99 F 10/03/21 08:00 Pulse 114 H 10/03/21 08:00 Resp 18 10/03/21 08:00 BP 107/72 10/03/21 08:00 Pulse Ox 96 10/03/21 08:00 FiO2 100 10/02/21 07:00 Intake & Output 10/02/21 10/03/21 10/03/21 18:59 06:59 18:59 Intake Total 4468.130 9607 140 Output Total 1533 3342 500 Balance -344.855 -2766 -360 Weight 77.8 kg Intake: IV 285 285 140 .9 KVO 160 160 40 Piperacillin-Tazobactam 3 125 125 100 .375 gm In Sodium Chloride 0.9% 100 ml @ 25 mls/hr IVPB Q8H [facility] Rx#: [id number] Intake, IV Titration 79.135 Amount Dexmedetomidine/0.9% NaCl 79.135 (Pmx) 400 mcg In Empty Bag 1 bag @ 0.2 MCG/KG/HR 3.8 mls/hr IV .Q24H [facility] Rx#:[id number] Oral 824 1021 Output: Urine 1533 3342 500 Other: Voiding Method Indwelling Catheter Indwelling Catheter Indwelling Catheter # Bowel Movements 1 - Labs CBC & Chem 7: 10/04/21 06:36 10/04/21 06:36 Labs: Abnormal Lab Results - Last 24 Hours (Table) 10/02/21 10/02/21 10/02/21 Range/Units 05:30 12:07 12:40 WBC (3.8-10.6) k/uL RBC (4.30-5.90) m/uL Hgb (13.0-17.5) gm/dL MCV (80.0-100.0) fL MCHC (31.0-37.0) g/dL Neutrophils # (Manual) 7.90 H (1.3-7.7) k/uL Lymphocytes # (Manual) 27.36 H (1.0-4.8) k/uL Monocytes # (Manual) 1.08 H (0-1.0) k/uL ABG pH 7.46 H (7.35-7.45) ABG pCO2 56 H (35-45) mmHg ABG HCO3 40 H* (21-25) mmol/L ABG Total CO2 42 H (19-24) mmol/L ABG O2 Saturation 98.7 H (94-97) % Sodium (137-145) mmol/L Chloride (98-107) mmol/L Carbon Dioxide (22-30) mmol/L Glucose (74-99) mg/dL POC Glucose (mg/dL) 150 H (70-110) mg/dL Calcium (8.4-10.2) mg/dL 10/02/21 10/03/21 10/03/21 Range/Units 16:49 01:16 05:36 WBC 40.9 H (3.8-10.6) k/uL RBC 3.96 L (4.30-5.90) m/uL Hgb 12.8 L (13.0-17.5) gm/dL MCV 105.0 H (80.0-100.0) fL MCHC 30.7 L (31.0-37.0) g/dL Neutrophils # (Manual) 7.77 H (1.3-7.7) k/uL Lymphocytes # (Manual) 33.13 H (1.0-4.8) k/uL Monocytes # (Manual) (0-1.0) k/uL ABG pH (7.35-7.45) ABG pCO2 (35-45) mmHg ABG HCO3 (21-25) mmol/L ABG Total CO2 (19-24) mmol/L ABG O2 Saturation (94-97) % Sodium (137-145) mmol/L Chloride (98-107) mmol/L Carbon Dioxide (22-30) mmol/L Glucose (74-99) mg/dL POC Glucose (mg/dL) 124 H 147 H (70-110) mg/dL Calcium (8.4-10.2) mg/dL 10/03/21 10/03/21 Range/Units 05:36 06:21 WBC (3.8-10.6) k/uL RBC (4.30-5.90) m/uL Hgb (13.0-17.5) gm/dL MCV (80.0-100.0) fL MCHC (31.0-37.0) g/dL Neutrophils # (Manual) (1.3-7.7) k/uL Lymphocytes # (Manual) (1.0-4.8) k/uL Monocytes # (Manual) (0-1.0) k/uL ABG pH (7.35-7.45) ABG pCO2 (35-45) mmHg ABG HCO3 (21-25) mmol/L ABG Total CO2 (19-24) mmol/L ABG O2 Saturation (94-97) % Sodium 135 L (137-145) mmol/L Chloride 97 L (98-107) mmol/L Carbon Dioxide 37 H (22-30) mmol/L Glucose 124 H (74-99) mg/dL POC Glucose (mg/dL) 124 H (70-110) mg/dL Calcium 8.3 L (8.4-10.2) mg/dL Microbiology - Last 24 Hours (Table) 09/30/21 20:17 Urine Culture - Final Urine,Catheterized 09/28/21 11:48 Blood Culture - Preliminary Blood No Growth after 96 hours
[2021-10-04 10:09] LABS: Lymphocytes # (M) 28.54 k/uL (1.0-4.8); Monocytes # (M) 1.04 k/uL (0-1.0); Neutrophils # (M) 5.57 k/uL (1.3-7.7); Neutrophils % (M) 16 %; Nucleated Red Blood Cells 0 /100 WBC (0-0); Total Cells Counted 200
[2021-10-04 11:07] LABS: Glucose,Whole Blood 100 mg/dL (70-110)
[2021-10-04 11:32] LABS: Glucose,Whole Blood 112 mg/dL (70-110)
--- NOTE | 2021-10-04 14:19 | P.PN ---
Subjective Progress Note Date: 10/04/21 Principal diagnosis: Hypercapnia, altered mental status This is a 66-year-old male patient who has a history of schizophrenia currently on Inve[place], previous ventilatory dependent aspiration pneumonia, previous severe hyponatremia with SIADH, chronic obstructive pulmonary disease, hypertension, hyperlipidemia, lymphoma diagnosed in August 2019, chronic tobacco dependence. Yesterday his parcel post delivery found him to be short of breath with some cough and congestion. Today his room air oxygen reading was 88% and EMS was called. He did develop altered mental status. Normally he is A and O 3. In the emergency room he was quite obtunded. No response to sternal rub or painful stimulation. White count 88.8. Hemoglobin 13.4. Platelets 251. INR 1.0. Sodium 116. Potassium 5.1. Bicarb 34. BUN 10. Creatinine 0.49. Glucose 125. Coronary virus by PCR not detected. Arterial blood gases on 55% FiO2 revealed a PaO2 of 163, pCO2 of 101 and a pH of 7.16. Placed on BiPAP 12/6 and decreased to 35% FiO2. He is seen today in consultation in the emergency department. He remains quite obtunded. He does withdraw to pain. Some inappropriate words. Opening his eyes to pain. Chest x-ray reveals mild cardiomegaly and chronic parenchymal changes without acute pulmonary process. CT of the brain revealed no acute intracranial process. Some non-specific white matter changes, likely secondary to chronic small vessel ischemic disease. The patient is seen today 09/28/2021 in follow-up in the intensive care unit. He remains obtunded but arousable. He had is continued on BiPAP 12/6 and 90% FiO2. He is requiring Precedex at 0.3 mcg/kg/h. He's on norepinephrine at 4 mcg/m. He is receiving 3% saline at 50 MLS per hour. His x-ray reveals persistent left lower lobe infiltrate/effusion with atelectasis of the right lower lobe. White count 82.9. Hemoglobin 13.0. Neutrophils 16.5. Lymphocytes 63. Monocytes 3.32. Sodium 120. Potassium 5.8. Chloride 86. BUN 24. Creatinine 1.16. Glucose 134. Calcium 8.2. Heparin for DVT prophylaxis. Protonix for GI prophylaxis. The patient is seen today 09/29/2021 in follow-up in the intensive care unit. He is currently on BiPAP 12/6 and 60% FiO2. He remains on norepinephrine at 6.7 mcg/m. Precedex at 0.6 mcg/kg/h. He is more awake and alert today. Sodium 133. Potassium 4.8. Bicarb 33. BUN 30. Creatinine 0.97. Calcium 8.3. Glucose 179. Hypertonic saline had been discontinued. He is currently on Solu Cortef 100 mg IV every 6 hours, was given Lasix 40 mg IVP 1. On heparin for DVT prophylaxis. On 09/30/2021, the patient is being seen for a follow-up. The patient remains on Precedex is running at 0.4 mcg/kg per minute. IV fluids are at KVO patient on 10 L of oxygen by nasal cannula. He does not communicate a whole lot. Nevertheless, the patient stated that his breathing is nonlabored and is calm and comfortable. He has a congested cough. On examination has bronchospastic and wheezy. Note that the patient has abnormal blood work. The white cell count at 36.9 consistent with his underlying CLL. The white cell count is chronically elevated. Hemoglobin is at 12.9 with a platelet count of 28. Rest of the electrolytes are all within normal limits. 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 For now, the patient remains on IV Zosyn. The patient will need a follow-up blood gas liters alternating between high flow oxygen and BiPAP for respiratory support which is set at a pressure of 12 over 6 cm of water. 10/01/2021, the patient is awake and interactive and the patient is following commands and answering questions appropriately. Denies having any complaints. Noted the patient schizophrenia and overall history provided by the patient is quite limited. Nevertheless, his breathing is much more comfortable compared to yesterday. The patient is currently on a combination of bronchodilators, and steroids. Less bronchospastic and wheezy on today's evaluation. Oxygen level is also being weaned down to 4 L per minute nasal cannula. His pro calcitonin level is at 0.25 and the patient is still on Precedex and the rate has been Down to 0.4 mcg/kg per minute. On his blood work, the white cell count is at 30 which is still elevated related to his underlying CLL. The white cell count of 15.3. Sodium is 141 with a BUN of 29 and a creatinine of 0.8 and a serum bicarbonate of 39. No other significant events otherwise for now. The patient's condition is stable. The patient is currently off BiPAP and he has a BiPAP machine at the bedside. Note that the patient failed swallow evaluation yesterday. The same will be done today as the patient is much more alert and awake. Precedex will be weaned off and discontinued. Psychiatric consultation will be also obtained. 10/02/2021, the patient remains on a low-dose Precedex at 0.2 mcg/kg per minute. He is calm and comfortable. He passed a swallow evaluation yesterday and is able to swallow. He is on oxygen at 4 L per minute nasal cannula. He is still on bronchodilators and steroids. He is being gradually weaned off the Precedex. He was started on Risperdal at a dose of 2 mg by mouth twice a day per psychiatric recommendation. He is also receiving Haldol 4 mg on an as-needed basis. He is on IV Solu Medrol 40 mg every 8 hours. He is on IV Zosyn as an empiric antibiotic coverage. Blood work from today is showing a white cell count 36 which is chronically elevated related to CLL with a white cell count of 36 and a hemoglobin of 12.1 and platelet count of 204. BUN is at 29 with a creatinine of 0.7 and serum bicarbonate of 42. 10/03/2021, the patient is off Precedex. The patient is able to swallow well. No respiratory difficulties. No cough sputum production chest tightness anxiety continues to have some limited wheezing. On the cardiac rhythm, the patient was noted to have some bigeminal rhythm and for that reason echocardiogram was ordered and a cardiology consultation will be also obtained. Meanwhile, the patient was started on Risperdal. The patient remains on IV Solu-Medrol. The patient remains on IV Zosyn and bronchodilators. His blood work essentially stable with a white cell count of 40.9 and hemoglobin 4.8 and a platelet count of 225. Sodium is at 135, BUN of 18 with a creatinine of 0.8. ProBNP level from today is 4700. He is communicating. No signs of any delirium. No agitation. The patient is currently off Precedex. Patient is seen today 10/04/2021 in follow-up in the intensive care unit. He is currently fairly awake and alert in no acute distress. He is remains off the Precedex. Calm and cooperative. Maintaining O2 saturation in the 90s on 2 L/m per nasal cannula. He had not required any BiPAP support in the past several days. Blood culture revealed no growth. Urine culture reveals no growth. White count 34.8. Hemoglobin 12.0. Platelets 213. Sodium 135. Potassium 4.4. Bicarb 33. BUN 18. Creatinine 0.93. Glucose 112. He is tolerating a chopped diet. Remains on aspiration precautions. Remains on fluid restriction. He is continued on antibiotics in the form of Zosyn. Heparin for DVT prophylaxis. Continued on bronchodilators. Objective - Vital Signs Vital signs: Vital Signs Temp 98.3 F 10/04/21 12:22 Pulse 81 10/04/21 12:22 Resp 17 10/04/21 12:22 BP 132/79 10/04/21 12:22 Pulse Ox 95 10/04/21 12:22 FiO2 100 10/02/21 07:00 Intake & Output 10/03/21 10/04/21 10/04/21 18:59 06:59 18:59 Intake Total 440 660 130 Output Total 2205 2430 325 Balance -1765 -1770 -195 Weight 77.8 kg 80.2 kg Intake: IV 440 300 130 .9 KVO 240 200 30 Piperacillin-Tazobactam 3 200 100 100 .375 gm In Sodium Chloride 0.9% 100 ml @ 25 mls/hr IVPB Q8H [facility] Rx#: [id number] Oral 360 Output: Urine 2205 2430 325 Other: Voiding Method Indwelling Catheter Indwelling Catheter Urinal - Exam GENERAL EXAM: Awake, alert, calm, cooperative, 66-year-old male patient, on 2 L nasal cannula. HEAD: Normocephalic. EYES: Normal reaction of pupils, equal size. NOSE: Clear with pink turbinates. THROAT: No erythema or exudates. NECK: No masses, no JVD. CHEST: No chest wall deformity. LUNGS: Equal air entry with basilar crackles. CVS: S1 and S2 normal with no audible murmur, regular rhythm. ABDOMEN: No hepatosplenomegaly, normal bowel sounds, no guarding or rigidity. SPINE: No scoliosis or deformity SKIN: No rashes CENTRAL NERVOUS SYSTEM: Arousable, tone is normal in all 4 extremities. EXTREMITIES: There is no peripheral edema. No clubbing, no cyanosis. Peripheral pulses are intact. - Labs CBC & Chem 7: 10/04/21 06:36 10/04/21 06:36 Labs: Abnormal Lab Results - Last 24 Hours (Table) 10/03/21 10/03/21 10/03/21 Range/Units 17:38 18:07 22:00 WBC (3.8-10.6) k/uL RBC (4.30-5.90) m/uL Hgb (13.0-17.5) gm/dL MCV (80.0-100.0) fL MCHC (31.0-37.0) g/dL Lymphocytes # (Manual) (1.0-4.8) k/uL Monocytes # (Manual) (0-1.0) k/uL Sodium (137-145) mmol/L Carbon Dioxide (22-30) mmol/L POC Glucose (mg/dL) 138 H 117 H 114 H (70-110) mg/dL Calcium (8.4-10.2) mg/dL 10/04/21 10/04/21 10/04/21 Range/Units 06:36 06:36 11:31 WBC 34.8 H (3.8-10.6) k/uL RBC 3.92 L (4.30-5.90) m/uL Hgb 12.0 L (13.0-17.5) gm/dL MCV 102.8 H (80.0-100.0) fL MCHC 29.7 L (31.0-37.0) g/dL Lymphocytes # (Manual) 28.54 H (1.0-4.8) k/uL Monocytes # (Manual) 1.04 H (0-1.0) k/uL Sodium 135 L (137-145) mmol/L Carbon Dioxide 33 H (22-30) mmol/L POC Glucose (mg/dL) 112 H (70-110) mg/dL Calcium 8.0 L (8.4-10.2) mg/dL Microbiology - Last 24 Hours (Table) 09/28/21 11:48 Blood Culture - Final Blood No Growth after 144 hours Assessment and Plan Assessment: Altered mental status secondary to acute on chronic hypercapnic respiratory failure. Did require BiPAP support. Currently on 2 L nasal cannula. Recovered, calm and cooperative. Off Precedex. Hyponatremia of unclear etiology. 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 II have personally seen and examined the patient and reviewed the documentation. I performed a joint evaluation with the nurse practitioner in this evaluation was done more than 20 minutes. I fully agree with the documentation above and the plan of care.. The patient will be transferred out of the intensive care unit. The patient will be taken off the IV Zosyn and the patient will be started on Augmentin. Prednisone burst taper. We'll continue to follow.
[2021-10-04 16:35] LABS: Glucose,Whole Blood 164 mg/dL (70-110)
--- NOTE | 2021-10-04 20:12 | P.PN ---
Subjective Progress Note Date: 10/04/21 Patient is a 66-year-old male with a known history of hypertension, hyperlipidemia, diabetes type 2, history of CVA with left hemiparesis, chronic hypercapnic respiratory failure, hyponatremia and mediastinal lymphadenopathy/lymphoma, schizophrenia and currently everyday smoker and a history of cocaine use was brought to ER by EMS. Patient's guardian noted that he was a little bit congested and shortness of breath is worse compared to yesterday and called EMS. Pulse ox was 88% on room air. Patient cannot provide any history at this time. Patient also developed altered mental status. Alert awake alert and oriented x3 at baseline. Chest x-ray showed mild cardiomegaly and chronic parenchymal changes without acute pulmonary process. CT head showed no acute intracranial process. Nonspecific white matter changes likely secondary to chronic small vessel ischemic disease. ABG showed pH 7.16 PCO2 101 PO2 163 and laboratory data showed WBC 88.8 hemoglobin 13.4 and platelets 251 Sodium 116 potassium 5.1 chloride 81 bicarb is 34 BUN 10 and creatinine 0.49 and lactic acid 0.6 calcium 7.8 and magnesium 1.9 liver enzymes are not elevated troponin x1 negative proBNP 4310 and coronavirus PCR not detected. 09/28/2021 Patient is currently in the MICU. Patient is being continued on BiPAP with FiO2 90%. Currently on norepinephrine drip and also requiring Precedex. Patient is able to open his eyes with verbal stimuli. Could not communicate. Chest x-ray showed persistent left lower lobe infiltrate and/or effusion as well as discoid atelectasis right lower lobe. Patient is being continued on normal saline at 75 cc/h. Was started on hypertonic saline as per nephrology recommendations. Laboratory showed sodium improved to 125, potassium 5.3 chloride 89 bicarb is 31 BUN 28 and creatinine 1.61. Cortisol level is 44. WBC 2.9 hemoglobin 13.0 and platelets 286. Lymphocytes 63. Pulmonary, nephrology and oncology is on board. 09/29 2021 Patient is in the MICU. Off BiPAP this morning for a brief period and started back again. Patient is more awake and able to open his eyes and follow simple commands. Could not communicate otherwise. Patient is also requiring norepinephrine drip and also on Precedex. Patient was started on hydrocortisone 100 mg every 6 hourly due to hypotension and was also given 1 dose of IV Lasix. Laboratory showed sodium level improved to 133 potassium 4.8 chloride 99 bicarb is 33 BUN 30 and creatinine 0.97 and calcium 8.3. Nephrology and pulmonary is on board. Current medications reviewed. 09/30/2021 Patient is seen in follow-up continues to be in the ICU with multiple medical consultations following including pulmonary pizza baker. Patient was maintained on BiPAP overnight currently maintained on high flow nasal cannula at 8-10 L and tolerating well. WBC continues to be elevated at 36.9, hemoglobin is 12.9, platelets are 228, sodium 137 with a potassium of 5.6 and appears hemolyzed and current creatinine is 0.75 with a repeat potassium ordered. Pro-calcitonin at 0.25. Repeat potassium is ordered and pending. Patient is maintained on a lbuterol along with IV steroids and is off pressor support at this time. Patient also continues on IV Zosyn and hypertonic solution has been discontinued and patient did receive some Solu-Cortef. Hematology oncology following for lymphocytic lymphoma. Patient is currently afebrile and denies any chest pain. Patient continues with shortness of breath and has overall generalized weakness 10/01/2021 Patient continues to be in the ICU with multiple medical consultations following. Patient is currently maintained on 4 L high flow and wean as tolerated with oxygen saturation of 96%. Patient with low-grade temp of 99.4 with blood cultures being negative and urine culture received and pending. Patient is maintained on Zosyn along with IV steroids and low-dose Precedex along with breathing inhalational treatments. Chest x-ray today shows improved aeration of the left lung base with residual atelectasis and/or infiltrate with small bilateral pleural effusions noted. White blood count trending down at 30.5 and hemoglobin is 12.3 with platelets of 196. Potassium slightly improved at 5.0 and sodium is 141 with a creatinine of 0.83. Currently awaiting psych eval and swallow eval. Patient denies chest pain or shortness of breath. Patient is asking for food and pop. Patient is afebrile and denies worsening shortness of breath. 10/02/2021 Patient is seen today and in the ICU with nephrology, pulmonary, and, psychiatry following closely. Patient has passed his swallow eval and is maintained on dysphagia diet and recommend aspiration precautions. Patient is also continued on IV zosyn and IV steroids. Patient weaning as tolerated and is on 4L via NC. Psych medications have been resumed. Patient is being weaned off precidex and has been stopped for one hour now. Per nursing staff, patient is having some pvc, pacs, with a 5 beat run of vtac on the monitor and is asymptomatic. Will consult cardiology and appreciate input and recommendations. Oncology following as well. Recommend to repeat labs in the am. Possible transfer out of the ICU if doing well off precedex. Patient is afebrile and denies any chest pain or palpitations. 10/03/2021 Patient is seen this morning currently sleeping but arousable continued in the ICU with pulmonary, nephrology, psychiatry and cardiology following. Patient is maintained on breathing treatments along with IV Zosyn, Risperdal, and being transitioned to oral prednisone. Patient discontinued on 2 L today via nasal cannula and continuing to wean FiO2 as tolerated. Patient is tolerating diet and blood sugars are being monitored and not requiring any insulin. WBC mildly up at 40.9 from yesterday. 2-D echo was ordered and pending at this time. Patient is afebrile denies any chest pain or worsening shortness of breath. Rec ommend continue with aspiration precautions and head of the bed elevated 30-45 at all times. 10/04/2021 Patient is seen today and is awaiting transfer out of the ICU to [facility] today. Patient continues on 2L via NC and has been taking the 02 off frequently and maintaining 02 sats above 90%. Dyspneic with exertion. Patient is working with physical therapy and has been improving. Resumed on psych meds and has been calm and cooperative. Patient continues to be somewhat confused at times and also with extensive psych history. Patient does have legal guardian and working with social work on possible assistance or home care in the home. Recommend to continue working with physical therapy. IV abx being transitioned to oral. Oral steroids and continued breathing treatments. Patient is afebrile and denies chest pain or shortness of breath. Active Medications Albuterol/Ipratropium (Ipratropium-Albuterol 3 Ml Neb) 3 ml INHALATION RT-QID [facility] Last Admin: 10/04/21 19:40 Dose: 3 ml Albuterol/Ipratropium (Ipratropium-Albuterol 3 Ml Neb) 3 ml INHALATION RT-Q2H PRN PRN Reason: Shortness Of Breath Or Wheezing Amoxicillin/Clavulanate Potassium (Amoxic-Pot Clav 875-125mg 1 Each Tab) 1 each PO Q12HR [facility]; Protocol Haloperidol Lactate (Haloperidol Lactate 5 Mg/Ml 1 Ml Vial) 4 mg IM Q4HR PRN PRN Reason: Agitation or Acute Psychosis Heparin Sodium (Porcine) (Heparin Sodium,Porcine/Pf 5,000 Unit/0.5 Ml Syringe) 5,000 unit SQ Q8HR [facility] Last Admin: 10/04/21 18:26 Dose: Not Given Metoprolol Tartrate (Metoprolol Tartrate 25 Mg Tab) 25 mg PO BID [facility] Last Admin: 10/04/21 19:55 Dose: 25 mg Naloxone HCl (Naloxone 0.4 Mg/Ml 1 Ml Vial) 0.2 mg IV Q2M PRN PRN Reason: Opioid Reversal Pantoprazole Sodium (Pantoprazole 40 Mg/10 Ml Vial) 40 mg IVP DAILY [facility] Last Admin: 10/04/21 08:30 Dose: 40 mg Prednisone (Prednisone 20 Mg Tab) 40 mg PO DAILY [facility] Last Admin: 10/04/21 08:30 Dose: 40 mg Risperidone (Risperidone 2 Mg Tab) 2 mg PO BID [facility] Stop: 10/04/21 23:00 Last Admin: 10/04/21 08:30 Dose: 2 mg PHYSICAL EXAMINATION: Patient is sitting up in the bed. awake and alert, no acute distress. Currently maintained on 2 L nasal cannula HEENT: Normocephalic. Neck is supple. Pupils reactive. Nostrils clear. Oral cavity is moist. Neck reveals no JVD, carotid bruits, or thyromegaly. CHEST EXAMINATION: Trachea is central. Symmetrical expansion. Bibasilar diminished sounds. Scattered coarse sounds noted.. CARDIAC: Normal S1, S2 with no gallops. No murmurs ABDOMEN: Soft. Bowel sounds present. Nontender. No organomegaly. No abdominal bruits. Extremities: reveal no edema. No clubbing or cyanosis Neurologically. Patient is Awake alert and follows simple commands. communicating more . Diffuse weakness Skin: No rash or skin lesions. Psychiatric: .cooperative Musculoskeletal: No joint swelling or deformity. Assessment: Altered mental status due to metabolic encephalopathy and hypoxic and hypercapn ic respiratory failure. 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 Hypertension. Diabetes type 2 COPD Chronic hypercapnic respiratory failure on home oxygen Schizophrenia History of incarceration Ongoing nicotine addiction History of cocaine use Previous hospitalization with aspiration pneumonia and VDRF DVT prophylaxis with heparin subcu CODE STATUS DNR/DNI Plan: Patient is on currently maintained on 2 L NC. nephrology is on board due to severe hyponatremia. improved Patient continued on dysphagia 3, nectar thickened diet, and recommend aspi ration precautions. psychiatry following as well. Psych meds resumed. Continue with insulin sliding scale as needed and continue to monitor Accu-Cheks before meals and at bedtime. Patient's blood sugars have been controlled and not requiring any insulin Have discussed with social work about discharge planning and patient has legal guardian that has gotten him an apartment and working on possible assistance in the home or home care. Prognosis is guarded at this time. Possible discharge Thursday. The impression and plan of care has been dictated by Martita Enrique, Nurse Practitioner as directed. Dr. Link MD I have performed a history and examination and MDM of this patient, discussed the same with the dictator, and agree with the dictator's assessment and plan as written ,documented as a scribe. Based on total visit time, I have performed more than 50% of the visit. Objective - Vital Signs Vital signs: Vital Signs Temp 98.2 F 10/04/21 08:00 Pulse 106 H 10/04/21 08:00 Resp 14 10/04/21 07:00 BP 136/77 10/04/21 08:00 Pulse Ox 95 10/04/21 08:00 FiO2 100 10/02/21 07:00 Intake & Output 10/03/21 10/04/21 10/04/21 18:59 06:59 18:59 Intake Total 440 660 130 Output Total 2205 2430 325 Balance -1765 -1770 -195 Weight 77.8 kg 80.2 kg Intake: IV 440 300 130 .9 KVO 240 200 30 Piperacillin-Tazobactam 3 200 100 100 .375 gm In Sodium Chloride 0.9% 100 ml @ 25 mls/hr IVPB Q8H [facility] Rx#: [id number] Oral 360 Output: Urine 2205 2430 325 Other: Voiding Method Indwelling Catheter Indwelling Catheter Indwelling Catheter - Labs CBC & Chem 7: 10/04/21 06:36 10/04/21 06:36 Labs: Abnormal Lab Results - Last 24 Hours (Table) 10/03/21 10/03/21 10/03/21 Range/Units 12:56 17:38 18:07 WBC (3.8-10.6) k/uL RBC (4.30-5.90) m/uL Hgb (13.0-17.5) gm/dL MCV (80.0-100.0) fL MCHC (31.0-37.0) g/dL Sodium (137-145) mmol/L Carbon Dioxide (22-30) mmol/L POC Glucose (mg/dL) 142 H 138 H 117 H (70-110) mg/dL Calcium (8.4-10.2) mg/dL 10/03/21 10/04/21 10/04/21 Range/Units 22:00 06:36 06:36 WBC 34.8 H (3.8-10.6) k/uL RBC 3.92 L (4.30-5.90) m/uL Hgb 12.0 L (13.0-17.5) gm/dL MCV 102.8 H (80.0-100.0) fL MCHC 29.7 L (31.0-37.0) g/dL Sodium 135 L (137-145) mmol/L Carbon Dioxide 33 H (22-30) mmol/L POC Glucose (mg/dL) 114 H (70-110) mg/dL Calcium 8.0 L (8.4-10.2) mg/dL Microbiology - Last 24 Hours (Table) 09/28/21 11:48 Blood Culture - Preliminary Blood No Growth after 120 hours
[2021-10-04] MEDS: AMOXIC-POT CLAV 875-125MG 1 EACH TAB PO SCH (21:42)
[2021-10-05 03:10] LABS: Glucose,Whole Blood 123 mg/dL (70-110)
[2021-10-05] MEDS: IPRATROPIUM-ALBUTEROL 3 ML NEB INHALATION SCH ×4 (07:42→19:11)
[2021-10-05] MEDS: AMOXIC-POT CLAV 875-125MG 1 EACH TAB PO SCH ×2 (09:25→20:31)
[2021-10-05] MEDS: METOPROLOL TARTRATE 25 MG TAB PO SCH ×2 (09:25→20:31)
[2021-10-05] MEDS: PANTOPRAZOLE 40 MG/10 ML VIAL IVP SCH (09:25)
[2021-10-05] MEDS: predniSONE 20 MG TAB PO SCH (09:25)
[2021-10-05] MEDS: HEPARIN SODIUM,PORCINE/PF 5,000 UNIT/0.5 ML SYRINGE SQ SCH ×2 (09:25→15:32)
--- NOTE | 2021-10-05 11:54 | P.PN ---
Subjective Progress Note Date: 10/05/21 This is a 66-year-old male patient who has a history of schizophrenia currently on Invega, previous ventilatory dependent aspiration pneumonia, previous severe hyponatremia with SIADH, chronic obstructive pulmonary disease, hypertension, hyperlipidemia, lymphoma diagnosed in August 2019, chronic tobacco dependence. Yesterday his engineer station mainline found him to be short of breath with some cough and congestion. Today his room air oxygen reading was 88% and EMS was called. He did develop altered mental status. Normally he is A and O 3. In the emergency room he was quite obtunded. No response to sternal rub or painful stimulation. White count 88.8. Hemoglobin 13.4. Platelets 251. INR 1.0. Sodium 116. Potassium 5.1. Bicarb 34. BUN 10. Creatinine 0.49. Glucose 125. Coronary virus by PCR not detected. Arterial blood gases on 55% FiO2 revealed a PaO2 of 163, pCO2 of 101 and a pH of 7.16. Placed on BiPAP 12/6 and decreased to 35% FiO2. He is seen today in consultation in the emergency department. He remains quite obtunded. He does withdraw to pain. Some inappropriate words. Opening his eyes to pain. Chest x-ray reveals mild cardiomegaly and chronic parenchymal changes without acute pulmonary process. CT of the brain revealed no acute intracranial process. Some non-specific white matter changes, likely secondary to chronic small vessel ischemic disease. The patient is seen today 09/28/2021 in follow-up in the intensive care unit. He remains obtunded but arousable. He had is continued on BiPAP 12/6 and 90% FiO2. He is requiring Precedex at 0.3 mcg/kg/h. He's on norepinephrine at 4 mcg/m. He is receiving 3% saline at 50 MLS per hour. His x-ray reveals persistent left lower lobe infiltrate/effusion with atelectasis of the right lower lobe. White count 82.9. Hemoglobin 13.0. Neutrophils 16.5. Lymphocytes 63. Monocytes 3.32. Sodium 120. Potassium 5.8. Chloride 86. BUN 24. Creatinine 1.16. Glucose 134. Calcium 8.2. Heparin for DVT prophylaxis. Protonix for GI prophylaxis. The patient is seen today 09/29/2021 in follow-up in the intensive care unit. He is currently on BiPAP 12/6 and 60% FiO2. He remains on norepinephrine at 6.7 mcg/m. Precedex at 0.6 mcg/kg/h. He is more awake and alert today. Sodium 133. Potassium 4.8. Bicarb 33. BUN 30. Creatinine 0.97. Calcium 8.3. Glucose 179. Hypertonic saline had been discontinued. He is currently on Solu Cortef 100 mg IV every 6 hours, was given Lasix 40 mg IVP 1. On heparin for DVT prophylaxis. On 09/30/2021, the patient is being seen for a follow-up. The patient remains on Precedex is running at 0.4 mcg/kg per minute. IV fluids are at KVO patient on 10 L of oxygen by nasal cannula. He does not communicate a whole lot. Nevertheless, the patient stated that his breathing is nonlabored and is calm and comfortable. He has a congested cough. On examination has bronchospastic and wheezy. Note that the patient has abnormal blood work. The white cell count at 36.9 consistent with his underlying CLL. The white cell count is chronically elevated. Hemoglobin is at 12.9 with a platelet count of 28. Rest of the electrolytes are all within normal limits. 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 For now, the patient remains on IV Zosyn. The patient will need a follow-up blood gas liters alternating between high flow oxygen and BiPAP for respiratory support which is set at a pressure of 12 over 6 cm of water. 10/01/2021, the patient is awake and interactive and the patient is following commands and answering questions appropriately. Denies having any complaints. Noted the patient schizophrenia and overall history provided by the patient is quite limited. Nevertheless, his breathing is much more comfortable compared to yesterday. The patient is currently on a combination of bronchodilators, and steroids. Less bronchospastic and wheezy on today's evaluation. Oxygen level is also being weaned down to 4 L per minute nasal cannula. His pro calcitonin level is at 0.25 and the patient is still on Precedex and the rate has been Down to 0.4 mcg/kg per minute. On his blood work, the white cell count is at 30 which is still elevated related to his underlying CLL. The white cell count of 15.3. Sodium is 141 with a BUN of 29 and a creatinine of 0.8 and a serum bicarbonate of 39. No other significant events otherwise for now. The patient's condition is stable. The patient is currently off BiPAP and he has a BiPAP machine at the bedside. Note that the patient failed swallow evaluation yesterday. The same will be done today as the patient is much more alert and awake. Precedex will be weaned off and discontinued. Psychiatric consultation will be also obtained. 10/02/2021, the patient remains on a low-dose Precedex at 0.2 mcg/kg per minute. He is calm and comfortable. He passed a swallow evaluation yesterday and is able to swallow. He is on oxygen at 4 L per minute nasal cannula. He is still on bronchodilators and steroids. He is being gradually weaned off the Precedex. He was started on Risperdal at a dose of 2 mg by mouth twice a day per psychiatric recommendation. He is also receiving Haldol 4 mg on an as-needed basis. He is on IV Solu Medrol 40 mg every 8 hours. He is on IV Zosyn as an empiric antibiotic coverage. Blood work from today is showing a white cell count 36 which is chronically elevated related to CLL with a white cell count of 36 and a hemoglobin of 12.1 and platelet count of 204. BUN is at 29 with a creatinine of 0.7 and serum bicarbonate of 42. 10/03/2021, the patient is off Precedex. The patient is able to swallow well. No respiratory difficulties. No cough sputum production chest tightness anxiety continues to have some limited wheezing. On the cardiac rhythm, the patient was noted to have some bigeminal rhythm and for that reason echocardiogram was ordered and a cardiology consultation will be also obtained. Meanwhile, the patient was started on Risperdal. The patient remains on IV Solu-Medrol. The patient remains on IV Zosyn and bronchodilators. His blood work essentially stable with a white cell count of 40.9 and hemoglobin 4.8 and a platelet count of 225. Sodium is at 135, BUN of 18 with a creatinine of 0.8. ProBNP level from today is 4700. He is communicating. No signs of any delirium. No agitation. The patient is currently off Precedex. Patient is seen today 10/04/2021 in follow-up in the intensive care unit. He is currently fairly awake and alert in no acute distress. He is remains off the Precedex. Calm and cooperative. Maintaining O2 saturation in the 90s on 2 L/m per nasal cannula. He had not required any BiPAP support in the past several days. Blood culture revealed no growth. Urine culture reveals no growth. White count 34.8. Hemoglobin 12.0. Platelets 213. Sodium 135. Potassium 4.4. Bicarb 33. BUN 18. Creatinine 0.93. Glucose 112. He is tolerating a chopped diet. Remains on aspiration precautions. Remains on fluid restriction. He is continued on antibiotics in the form of Zosyn. Heparin for DVT prophylaxis. Continued on bronchodilators. 10/02/2021, the patient is doing well. No specific complaints. Resting comfortably in bed. No signs of any respiratory distress. Currently is on oral Augmentin. He is also on oral prednisone as part of burst taper. He is also on DuoNeb nebulized treatments of the clock. Objective - Vital Signs Vital signs: Vital Signs Temp 98.1 F 10/05/21 08:25 Pulse 94 10/05/21 11:31 Resp 16 10/05/21 08:25 BP 118/70 10/05/21 08:25 Pulse Ox 94 L 10/05/21 08:25 FiO2 100 10/02/21 07:00 Intake & Output 10/04/21 10/05/21 10/05/21 18:59 06:59 18:59 Intake Total 130 360 Output Total 325 1000 Balance -195 -640 Weight 84.5 kg Intake: IV 130 .9 KVO 30 Piperacillin-Tazobactam 3 100 .375 gm In Sodium Chloride 0.9% 100 ml @ 25 mls/hr IVPB Q8H [facility] Rx#: [id number] Oral 360 Output: Urine 325 1000 Other: Voiding Method Urinal # Voids 3 - Exam GENERAL EXAM: Awake, alert, calm, cooperative, 66-year-old male patient, on 2 L nasal cannula. HEAD: Normocephalic. EYES: Normal reaction of pupils, equal size. NOSE: Clear with pink turbinates. THROAT: No erythema or exudates. NECK: No masses, no JVD. CHEST: No chest wall deformity. LUNGS: Equal air entry with basilar crackles. CVS: S1 and S2 normal with no audible murmur, regular rhythm. ABDOMEN: No hepatosplenomegaly, normal bowel sounds, no guarding or rigidity. SPINE: No scoliosis or deformity SKIN: No rashes CENTRAL NERVOUS SYSTEM: Arousable, tone is normal in all 4 extremities. EXTREMITIES: There is no peripheral edema. No clubbing, no cyanosis. Peripheral pulses are intact. - Labs CBC & Chem 7: 10/04/21 06:36 10/04/21 06:36 Labs: Abnormal Lab Results - Last 24 Hours (Table) 10/04/21 10/05/21 Range/Units 16:34 03:07 POC Glucose (mg/dL) 164 H 123 H (70-110) mg/dL Microbiology - Last 24 Hours (Table) 09/28/21 11:48 Blood Culture - Final Blood No Growth after 144 hours Assessment and Plan Plan: Altered mental status secondary mainly due to metabolic factors including chronic hypercapnic respiratory failure , improved and the patient's mental status back to its baseline Acute hypoxic respiratory failure, on 2 L/min patient is off BiPAP and a COPD exacerbation is improving Chronic obstructive pulmonary disease, and exacerbation, improving Hyponatremia , recovered and the sodium level is normalized Hyperkalemia, K is normal History of schizophrenia History of incarceration Leukocytosis secondary to history of small lymphocytic lymphoma/CLL diagnosed in August 2019, white cell count remains chronically elevated Chronic and ongoing tobacco dependence History of cocaine use Diabetes mellitus, type II Hypertension Chronic obstructive pulmonary disease Previous hospitalization for aspiration, pneumonia and ventilatory dependent respiratory failure 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 Condition is improving
[2021-10-06] MEDS: HEPARIN SODIUM,PORCINE/PF 5,000 UNIT/0.5 ML SYRINGE SQ SCH ×3 (00:51→15:58)
[2021-10-06 06:08] LABS: Glucose,Whole Blood 92 mg/dL (70-110)
[2021-10-06] MEDS: IPRATROPIUM-ALBUTEROL 3 ML NEB INHALATION SCH ×4 (08:20→20:19)
[2021-10-06] MEDS: METOPROLOL TARTRATE 25 MG TAB PO SCH ×2 (08:52→22:26)
[2021-10-06] MEDS: predniSONE 20 MG TAB PO SCH (08:52)
[2021-10-06] MEDS: AMOXIC-POT CLAV 875-125MG 1 EACH TAB PO SCH ×2 (08:52→22:26)
--- NOTE | 2021-10-06 12:04 | P.PN ---
Subjective Progress Note Date: 10/06/21 This is a 66-year-old male patient who has a history of schizophrenia currently on Invega, previous ventilatory dependent aspiration pneumonia, previous severe hyponatremia with SIADH, chronic obstructive pulmonary disease, hypertension, hyperlipidemia, lymphoma diagnosed in August 2019, chronic tobacco dependence. Yesterday his contact lens molder found him to be short of breath with some cough and congestion. Today his room air oxygen reading was 88% and EMS was called. He did develop altered mental status. Normally he is A and O 3. In the emergency room he was quite obtunded. No response to sternal rub or painful stimulation. White count 88.8. Hemoglobin 13.4. Platelets 251. INR 1.0. Sodium 116. Potassium 5.1. Bicarb 34. BUN 10. Creatinine 0.49. Glucose 125. Coronary virus by PCR not detected. Arterial blood gases on 55% FiO2 revealed a PaO2 of 163, pCO2 of 101 and a pH of 7.16. Placed on BiPAP 12/6 and decreased to 35% FiO2. He is seen today in consultation in the emergency department. He remains quite obtunded. He does withdraw to pain. Some inappropriate words. Opening his eyes to pain. Chest x-ray reveals mild cardiomegaly and chronic parenchymal changes without acute pulmonary process. CT of the brain revealed no acute intracranial process. Some non-specific white matter changes, likely secondary to chronic small vessel ischemic disease. The patient is seen today 09/28/2021 in follow-up in the intensive care unit. He remains obtunded but arousable. He had is continued on BiPAP 12/6 and 90% FiO2. He is requiring Precedex at 0.3 mcg/kg/h. He's on norepinephrine at 4 mcg/m. He is receiving 3% saline at 50 MLS per hour. His x-ray reveals persistent left lower lobe infiltrate/effusion with atelectasis of the right lower lobe. White count 82.9. Hemoglobin 13.0. Neutrophils 16.5. Lymphocytes 63. Monocytes 3.32. Sodium 120. Potassium 5.8. Chloride 86. BUN 24. Creatinine 1.16. Glucose 134. Calcium 8.2. Heparin for DVT prophylaxis. Protonix for GI prophylaxis. The patient is seen today 09/29/2021 in follow-up in the intensive care unit. He is currently on BiPAP 12/6 and 60% FiO2. He remains on norepinephrine at 6.7 mcg/m. Precedex at 0.6 mcg/kg/h. He is more awake and alert today. Sodium 133. Potassium 4.8. Bicarb 33. BUN 30. Creatinine 0.97. Calcium 8.3. Glucose 179. Hypertonic saline had been discontinued. He is currently on Solu Cortef 100 mg IV every 6 hours, was given Lasix 40 mg IVP 1. On heparin for DVT prophylaxis. On 09/30/2021, the patient is being seen for a follow-up. The patient remains on Precedex is running at 0.4 mcg/kg per minute. IV fluids are at KVO patient on 10 L of oxygen by nasal cannula. He does not communicate a whole lot. Nevertheless, the patient stated that his breathing is nonlabored and is calm and comfortable. He has a congested cough. On examination has bronchospastic and wheezy. Note that the patient has abnormal blood work. The white cell count at 36.9 consistent with his underlying CLL. The white cell count is chronically elevated. Hemoglobin is at 12.9 with a platelet count of 28. Rest of the electrolytes are all within normal limits. 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 For now, the patient remains on IV Zosyn. The patient will need a follow-up blood gas liters alternating between high flow oxygen and BiPAP for respiratory support which is set at a pressure of 12 over 6 cm of water. 10/01/2021, the patient is awake and interactive and the patient is following commands and answering questions appropriately. Denies having any complaints. Noted the patient schizophrenia and overall history provided by the patient is quite limited. Nevertheless, his breathing is much more comfortable compared to yesterday. The patient is currently on a combination of bronchodilators, and steroids. Less bronchospastic and wheezy on today's evaluation. Oxygen level is also being weaned down to 4 L per minute nasal cannula. His pro calcitonin level is at 0.25 and the patient is still on Precedex and the rate has been Down to 0.4 mcg/kg per minute. On his blood work, the white cell count is at 30 which is still elevated related to his underlying CLL. The white cell count of 15.3. Sodium is 141 with a BUN of 29 and a creatinine of 0.8 and a serum bicarbonate of 39. No other significant events otherwise for now. The patient's condition is stable. The patient is currently off BiPAP and he has a BiPAP machine at the bedside. Note that the patient failed swallow evaluation yesterday. The same will be done today as the patient is much more alert and awake. Precedex will be weaned off and discontinued. Psychiatric consultation will be also obtained. 10/02/2021, the patient remains on a low-dose Precedex at 0.2 mcg/kg per minute. He is calm and comfortable. He passed a swallow evaluation yesterday and is able to swallow. He is on oxygen at 4 L per minute nasal cannula. He is still on bronchodilators and steroids. He is being gradually weaned off the Precedex. He was started on Risperdal at a dose of 2 mg by mouth twice a day per psychiatric recommendation. He is also receiving Haldol 4 mg on an as-needed basis. He is on IV Solu Medrol 40 mg every 8 hours. He is on IV Zosyn as an empiric antibiotic coverage. Blood work from today is showing a white cell count 36 which is chronically elevated related to CLL with a white cell count of 36 and a hemoglobin of 12.1 and platelet count of 204. BUN is at 29 with a creatinine of 0.7 and serum bicarbonate of 42. 10/03/2021, the patient is off Precedex. The patient is able to swallow well. No respiratory difficulties. No cough sputum production chest tightness anxiety continues to have some limited wheezing. On the cardiac rhythm, the patient was noted to have some bigeminal rhythm and for that reason echocardiogram was ordered and a cardiology consultation will be also obtained. Meanwhile, the patient was started on Risperdal. The patient remains on IV Solu-Medrol. The patient remains on IV Zosyn and bronchodilators. His blood work essentially stable with a white cell count of 40.9 and hemoglobin 4.8 and a platelet count of 225. Sodium is at 135, BUN of 18 with a creatinine of 0.8. ProBNP level from today is 4700. He is communicating. No signs of any delirium. No agitation. The patient is currently off Precedex. Patient is seen today 10/04/2021 in follow-up in the intensive care unit. He is currently fairly awake and alert in no acute distress. He is remains off the Precedex. Calm and cooperative. Maintaining O2 saturation in the 90s on 2 L/m per nasal cannula. He had not required any BiPAP support in the past several days. Blood culture revealed no growth. Urine culture reveals no growth. White count 34.8. Hemoglobin 12.0. Platelets 213. Sodium 135. Potassium 4.4. Bicarb 33. BUN 18. Creatinine 0.93. Glucose 112. He is tolerating a chopped diet. Remains on aspiration precautions. Remains on fluid restriction. He is continued on antibiotics in the form of Zosyn. Heparin for DVT prophylaxis. Continued on bronchodilators. 10/05/2021, the patient is doing well. No specific complaints. Resting comfortably in bed. No signs of any respiratory distress. Currently is on oral Augmentin. He is also on oral prednisone as part of burst taper. He is also on DuoNeb nebulized treatments of the clock. 10/06/2021, the patient is doing well. No specific complaints. Resting comfortably in bed and currently is on room air oxygen. He is currently on prednisone burst taper and is also on Augmentin and DuoNeb nebulized treatments [id number]. Adequate swallow. No agitation and altered mentation. No agitation. Objective - Vital Signs Vital signs: Vital Signs Temp 98.8 F 10/06/21 08:00 Pulse 66 10/06/21 11:46 Resp 14 10/06/21 08:00 BP 104/61 10/06/21 08:00 Pulse Ox 93 L 10/06/21 08:00 FiO2 100 10/02/21 07:00 Intake & Output 10/05/21 10/06/21 10/06/21 18:59 06:59 18:59 Output Total 900 Balance -900 Weight 81 kg Output: Urine 900 - Exam GENERAL EXAM: Awake, alert, calm, cooperative, 66-year-old male patient, on 2 L nasal cannula. HEAD: Normocephalic. EYES: Normal reaction of pupils, equal size. NOSE: Clear with pink turbinates. THROAT: No erythema or exudates. NECK: No masses, no JVD. CHEST: No chest wall deformity. LUNGS: Equal air entry with basilar crackles. CVS: S1 and S2 normal with no audible murmur, regular rhythm. ABDOMEN: No hepatosplenomegaly, normal bowel sounds, no guarding or rigidity. SPINE: No scoliosis or deformity SKIN: No rashes CENTRAL NERVOUS SYSTEM: Arousable, tone is normal in all 4 extremities. EXTREMITIES: There is no peripheral edema. No clubbing, no cyanosis. Peripheral pulses are intact. 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 Discharge planning is in progress Prednisone burst taper Oral Augmentin DuoNeb nebulized treatments Clinically much improved Risperdal was added We'll continue to follow. Condition is improving Condition is stable
--- NOTE | 2021-10-06 23:56 | P.PN ---
Subjective Progress Note Date: 10/05/21 Patient is a 66-year-old male with a known history of hypertension, hyperlipidemia, diabetes type 2, history of CVA with left hemiparesis, chronic hypercapnic respiratory failure, hyponatremia and mediastinal lymphadenopathy/lymphoma, schizophrenia and currently everyday smoker and a history of cocaine use was brought to ER by EMS. Patient's guardian noted that he was a little bit congested and shortness of breath is worse compared to yesterday and called EMS. Pulse ox was 88% on room air. Patient cannot provide any history at this time. Patient also developed altered mental status. Alert awake alert and oriented x3 at baseline. Chest x-ray showed mild cardiomegaly and chronic parenchymal changes without acute pulmonary process. CT head showed no acute intracranial process. Nonspecific white matter changes likely secondary to chronic small vessel ischemic disease. ABG showed pH 7.16 PCO2 101 PO2 163 and laboratory data showed WBC 88.8 hemoglobin 13.4 and platelets 251 Sodium 116 potassium 5.1 chloride 81 bicarb is 34 BUN 10 and creatinine 0.49 and lactic acid 0.6 calcium 7.8 and magnesium 1.9 liver enzymes are not elevated troponin x1 negative proBNP 4310 and coronavirus PCR not detected. 09/28/2021 Patient is currently in the MICU. Patient is being continued on BiPAP with FiO2 90%. Currently on norepinephrine drip and also requiring Precedex. Patient is able to open his eyes with verbal stimuli. Could not communicate. Chest x-ray showed persistent left lower lobe infiltrate and/or effusion as well as discoid atelectasis right lower lobe. Patient is being continued on normal saline at 75 cc/h. Was started on hypertonic saline as per nephrology recommendations. Laboratory showed sodium improved to 125, potassium 5.3 chloride 89 bicarb is 31 BUN 28 and creatinine 1.61. Cortisol level is 44. WBC 2.9 hemoglobin 13.0 and platelets 286. Lymphocytes 63. Pulmonary, nephrology and oncology is on board. 09/29 2021 Patient is in the MICU. Off BiPAP this morning for a brief period and started back again. Patient is more awake and able to open his eyes and follow simple commands. Could not communicate otherwise. Patient is also requiring norepinephrine drip and also on Precedex. Patient was started on hydrocortisone 100 mg every 6 hourly due to hypotension and was also given 1 dose of IV Lasix. Laboratory showed sodium level improved to 133 potassium 4.8 chloride 99 bicarb is 33 BUN 30 and creatinine 0.97 and calcium 8.3. Nephrology and pulmonary is on board. Current medications reviewed. 09/30/2021 Patient is seen in follow-up continues to be in the ICU with multiple medical consultations following including pulmonary licensed prosthetist/orthotist. Patient was maintained on BiPAP overnight currently maintained on high flow nasal cannula at 8-10 L and tolerating well. WBC continues to be elevated at 36.9, hemoglobin is 12.9, platelets are 228, sodium 137 with a potassium of 5.6 and appears hemolyzed and current creatinine is 0.75 with a repeat potassium ordered. Pro-calcitonin at 0.25. Repeat potassium is ordered and pending. Patient is maintained on al buterol along with IV steroids and is off pressor support at this time. Patient also continues on IV Zosyn and hypertonic solution has been discontinued and patient did receive some Solu-Cortef. Hematology oncology following for lymphocytic lymphoma. Patient is currently afebrile and denies any chest pain. Patient continues with shortness of breath and has overall generalized weakness 10/01/2021 Patient continues to be in the ICU with multiple medical consultations following. Patient is currently maintained on 4 L high flow and wean as tolerated with oxygen saturation of 96%. Patient with low-grade temp of 99.4 with blood cultures being negative and urine culture received and pending. Patient is maintained on Zosyn along with IV steroids and low-dose Precedex along with breathing inhalational treatments. Chest x-ray today shows improved aeration of the left lung base with residual atelectasis and/or infiltrate with small bilateral pleural effusions noted. White blood count trending down at 30.5 and hemoglobin is 12.3 with platelets of 196. Potassium slightly improved at 5.0 and sodium is 141 with a creatinine of 0.83. Currently awaiting psych eval and swallow eval. Patient denies chest pain or shortness of breath. Patient is asking for food and pop. Patient is afebrile and denies worsening shortness of breath. 10/02/2021 Patient is seen today and in the ICU with nephrology, pulmonary, and, psychiatry following closely. Patient has passed his swallow eval and is maintained on dysphagia diet and recommend aspiration precautions. Patient is also continued on IV zosyn and IV steroids. Patient weaning as tolerated and is on 4L via NC. Psych medications have been resumed. Patient is being weaned off precidex and has been stopped for one hour now. Per nursing staff, patient is having some pvc, pacs, with a 5 beat run of vtac on the monitor and is asymptomatic. Will consult cardiology and appreciate input and recommendations. Oncology following as well. Recommend to repeat labs in the am. Possible transfer out of the ICU if doing well off precedex. Patient is afebrile and denies any chest pain or palpitations. 10/03/2021 Patient is seen this morning currently sleeping but arousable continued in the ICU with pulmonary, nephrology, psychiatry and cardiology following. Patient is maintained on breathing treatments along with IV Zosyn, Risperdal, and being transitioned to oral prednisone. Patient discontinued on 2 L today via nasal cannula and continuing to wean FiO2 as tolerated. Patient is tolerating diet and blood sugars are being monitored and not requiring any insulin. WBC mildly up at 40.9 from yesterday. 2-D echo was ordered and pending at this time. Patient is afebrile denies any chest pain or worsening shortness of breath. Recommend continue with aspiration precautions and head of the bed elevated 30- 45 at all times. 10/04/2021 Patient is seen today and is awaiting transfer out of the ICU to [facility] today. Patient continues on 2L via NC and has been taking the 02 off frequently and maintaining 02 sats above 90%. Dyspneic with exertion. Patient is working with physical therapy and has been improving. Resumed on psych meds and has been calm and cooperative. Patient continues to be somewhat confused at times and also with extensive psych history. Patient does have legal guardian and working with social work on possible assistance or home care in the home. Recommend to continue working with physical therapy. IV abx being transitioned to oral. Oral steroids and continued breathing treatments. Patient is afebrile and denies chest pain or shortness of breath. 10/05/2021 Patient is currently resting in bed. Awake alert [place] x3. No complaints of chest pain or shortness of breath. No nausea vomiting abdominal pain diarrhea. Tolerating oral diet. Patient is being current on oral steroid tapering course of antibiotics and above Augmentin. Awaiting discharge possibly on Thursday. Current medications reviewed. Objective - Vital Signs Vital signs: Vital Signs Temp 98.4 F 10/05/21 14:00 Pulse 59 L 10/05/21 19:22 Resp 16 10/05/21 19:22 BP 123/56 10/05/21 14:00 Pulse Ox 98 10/05/21 15:14 FiO2 100 10/02/21 07:00 Intake & Output 10/05/21 10/05/21 10/06/21 06:59 18:59 06:59 Intake Total 360 Output Total 1000 Balance -640 Weight 84.5 kg Intake: Oral 360 Output: Urine 1000 Other: # Voids 3 - Exam PHYSICAL EXAMINATION: Patient is sitting up in the bed. awake and alert, no acute distress. HEENT: Normocephalic. Neck is supple. Pupils reactive. Nostrils clear. Oral cavity is moist. Neck reveals no JVD, carotid bruits, or thyromegaly. CHEST EXAMINATION: Trachea is central. Symmetrical expansion. Scattered coarse sounds noted.. CARDIAC: Normal S1, S2 with no gallops. No murmurs ABDOMEN: Soft. Bowel sounds present. Nontender. No organomegaly. No abdominal bruits. Extremities: reveal no edema. No clubbing or cyanosis Neurologically. Patient is Awake alert and follows simple commands. communicating more . Diffuse weakness Skin: No rash or skin lesions. Psychiatric: .cooperative Musculoskeletal: No joint swelling or deformity. - Labs CBC & Chem 7: 10/04/21 06:36 10/04/21 06:36 Labs: Abnormal Lab Results - Last 24 Hours (Table) 10/05/21 Range/Units 03:07 POC Glucose (mg/dL) 123 H (70-110) mg/dL Assessment and Plan Assessment: Altered mental status due to metabolic encephalopathy and hypoxic and hypercapnic respiratory failure. 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 Hypertension. Diabetes type 2 COPD Chronic hypercapnic respiratory failure on home oxygen Schizophrenia History of incarceration Ongoing nicotine addiction History of cocaine use Previous hospitalization with aspiration pneumonia and VDRF DVT prophylaxis with heparin subcu CODE STATUS DNR/DNI Plan: Patient is on currently transioned to [facility]. nephrology is on board due to severe hyponatremia. improved Patient continued on dysphagia 3, nectar thickened diet, and recommend aspiration precautions. psychiatry following as well. Psych meds resumed. Continue with insulin sliding scale as needed and continue to monitor Accu-Cheks before meals and at bedtime. Patient's blood sugars have been controlled and not requiring any insulin Have discussed with social work about discharge planning and patient has legal guardian that has gotten him an apartment and working on possible assistance in the home or home care. Prognosis is guarded at this time. Possible discharge Thursday. Time with Patient: Greater than 30
--- NOTE | 2021-10-07 00:11 | P.PN ---
Subjective Progress Note Date: 10/06/21 Patient is a 66-year-old male with a known history of hypertension, hyperlipidemia, diabetes type 2, history of CVA with left hemiparesis, chronic hypercapnic respiratory failure, hyponatremia and mediastinal lymphadenopathy/lymphoma, schizophrenia and currently everyday smoker and a history of cocaine use was brought to ER by EMS. Patient's guardian noted that he was a little bit congested and shortness of breath is worse compared to yesterday and called EMS. Pulse ox was 88% on room air. Patient cannot provide any history at this time. Patient also developed altered mental status. Alert awake alert and oriented x3 at baseline. Chest x-ray showed mild cardiomegaly and chronic parenchymal changes without acute pulmonary process. CT head showed no acute intracranial process. Nonspecific white matter changes likely secondary to chronic small vessel ischemic disease. ABG showed pH 7.16 PCO2 101 PO2 163 and laboratory data showed WBC 88.8 hemoglobin 13.4 and platelets 251 Sodium 116 potassium 5.1 chloride 81 bicarb is 34 BUN 10 and creatinine 0.49 and lactic acid 0.6 calcium 7.8 and magnesium 1.9 liver enzymes are not elevated troponin x1 negative proBNP 4310 and coronavirus PCR not detected. 09/28/2021 Patient is currently in the MICU. Patient is being continued on BiPAP with FiO2 90%. Currently on norepinephrine drip and also requiring Precedex. Patient is able to open his eyes with verbal stimuli. Could not communicate. Chest x-ray showed persistent left lower lobe infiltrate and/or effusion as well as discoid atelectasis right lower lobe. Patient is being continued on normal saline at 75 cc/h. Was started on hypertonic saline as per nephrology recommendations. Laboratory showed sodium improved to 125, potassium 5.3 chloride 89 bicarb is 31 BUN 28 and creatinine 1.61. Cortisol level is 44. WBC 2.9 hemoglobin 13.0 and platelets 286. Lymphocytes 63. Pulmonary, nephrology and oncology is on board. 09/29 2021 Patient is in the MICU. Off BiPAP this morning for a brief period and started back again. Patient is more awake and able to open his eyes and follow simple commands. Could not communicate otherwise. Patient is also requiring norepinephrine drip and also on Precedex. Patient was started on hydrocortisone 100 mg every 6 hourly due to hypotension and was also given 1 dose of IV Lasix. Laboratory showed sodium level improved to 133 potassium 4.8 chloride 99 bicarb is 33 BUN 30 and creatinine 0.97 and calcium 8.3. Nephrology and pulmonary is on board. Current medications reviewed. 09/30/2021 Patient is seen in follow-up continues to be in the ICU with multiple medical consultations following including pulmonary infusion pharmacist. Patient was maintained on BiPAP overnight currently maintained on high flow nasal cannula at 8-10 L and tolerating well. WBC continues to be elevated at 36.9, hemoglobin is 12.9, platelets are 228, sodium 137 with a potassium of 5.6 and appears hemolyzed and current creatinine is 0.75 with a repeat potassium ordered. Pro-calcitonin at 0.25. Repeat potassium is ordered and pending. Patient is maintained on al buterol along with IV steroids and is off pressor support at this time. Patient also continues on IV Zosyn and hypertonic solution has been discontinued and patient did receive some Solu-Cortef. Hematology oncology following for lymphocytic lymphoma. Patient is currently afebrile and denies any chest pain. Patient continues with shortness of breath and has overall generalized weakness 10/01/2021 Patient continues to be in the ICU with multiple medical consultations following. Patient is currently maintained on 4 L high flow and wean as tolerated with oxygen saturation of 96%. Patient with low-grade temp of 99.4 with blood cultures being negative and urine culture received and pending. Patient is maintained on Zosyn along with IV steroids and low-dose Precedex along with breathing inhalational treatments. Chest x-ray today shows improved aeration of the left lung base with residual atelectasis and/or infiltrate with small bilateral pleural effusions noted. White blood count trending down at 30.5 and hemoglobin is 12.3 with platelets of 196. Potassium slightly improved at 5.0 and sodium is 141 with a creatinine of 0.83. Currently awaiting psych eval and swallow eval. Patient denies chest pain or shortness of breath. Patient is asking for food and pop. Patient is afebrile and denies worsening shortness of breath. 10/02/2021 Patient is seen today and in the ICU with nephrology, pulmonary, and, psychiatry following closely. Patient has passed his swallow eval and is maintained on dysphagia diet and recommend aspiration precautions. Patient is also continued on IV zosyn and IV steroids. Patient weaning as tolerated and is on 4L via NC. Psych medications have been resumed. Patient is being weaned off precidex and has been stopped for one hour now. Per nursing staff, patient is having some pvc, pacs, with a 5 beat run of vtac on the monitor and is asymptomatic. Will consult cardiology and appreciate input and recommendations. Oncology following as well. Recommend to repeat labs in the am. Possible transfer out of the ICU if doing well off precedex. Patient is afebrile and denies any chest pain or palpitations. 10/03/2021 Patient is seen this morning currently sleeping but arousable continued in the ICU with pulmonary, nephrology, psychiatry and cardiology following. Patient is maintained on breathing treatments along with IV Zosyn, Risperdal, and being transitioned to oral prednisone. Patient discontinued on 2 L today via nasal cannula and continuing to wean FiO2 as tolerated. Patient is tolerating diet and blood sugars are being monitored and not requiring any insulin. WBC mildly up at 40.9 from yesterday. 2-D echo was ordered and pending at this time. Patient is afebrile denies any chest pain or worsening shortness of breath. Recommend continue with aspiration precautions and head of the bed elevated 30- 45 at all times. 10/04/2021 Patient is seen today and is awaiting transfer out of the ICU to [facility] today. Patient continues on 2L via NC and has been taking the 02 off frequently and maintaining 02 sats above 90%. Dyspneic with exertion. Patient is working with physical therapy and has been improving. Resumed on psych meds and has been calm and cooperative. Patient continues to be somewhat confused at times and also with extensive psych history. Patient does have legal guardian and working with social work on possible assistance or home care in the home. Recommend to continue working with physical therapy. IV abx being transitioned to oral. Oral steroids and continued breathing treatments. Patient is afebrile and denies chest pain or shortness of breath. 10/05/2021 Patient is currently resting in bed. Awake alert [place] x3. No complaints of chest pain or shortness of breath. No nausea vomiting abdominal pain diarrhea. Tolerating oral diet. Patient is being current on oral steroid tapering course of antibiotics and above Augmentin. Awaiting discharge possibly on Thursday. 10/06/2021 Patient is currently resting in bed. Awake alert oriented x3. No complaints of chest pain or worsening shortness of. Patient is on steroid tapering course and also antibiotics no longer Augmentin. No nausea vomiting or abdominal pain or diarrhea. No agitation. Mentation is stable. Patient is on room air. An ticipate discharge to rehab on Thursday. Current medications reviewed. Objective - Vital Signs Vital signs: Vital Signs Temp 97.8 F 10/06/21 19:48 Pulse 67 10/06/21 20:25 Resp 15 10/06/21 19:48 BP 117/68 10/06/21 19:48 Pulse Ox 95 10/06/21 19:48 FiO2 100 10/02/21 07:00 Intake & Output 10/06/21 10/06/21 10/07/21 06:59 18:59 06:59 Output Total 900 Balance -900 Weight 81 kg Output: Urine 900 Other: # Bowel Movements 1 - Exam PHYSICAL EXAMINATION: Patient is sitting up in the bed. awake and alert, no acute distress. HEENT: Normocephalic. Neck is supple. Pupils reactive. Nostrils clear. Oral cavity is moist. Neck reveals no JVD, carotid bruits, or thyromegaly. CHEST EXAMINATION: Trachea is central. Symmetrical expansion. Scattered coarse sounds noted.. CARDIAC: Normal S1, S2 with no gallops. No murmurs ABDOMEN: Soft. Bowel sounds present. Nontender. No organomegaly. No abdominal bruits. Extremities: reveal no edema. No clubbing or cyanosis Neurologically. Patient is Awake alert and follows simple commands. communicating more . Diffuse weakness Skin: No rash or skin lesions. Psychiatric: .cooperative Musculoskeletal: No joint swelling or deformity. - Labs CBC & Chem 7: 10/04/21 06:36 10/04/21 06:36 Assessment and Plan Assessment: Altered mental status due to metabolic encephalopathy and hypoxic and hyperca pnic respiratory failure. 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 Hypertension. Diabetes type 2 COPD Chronic hypercapnic respiratory failure on home oxygen Schizophrenia History of incarceration Ongoing nicotine addiction History of cocaine use Previous hospitalization with aspiration pneumonia and VDRF DVT prophylaxis with heparin subcu CODE STATUS DNR/DNI Plan: Patient is on currently transioned to [facility]. nephrology is on board due to severe hyponatremia. improved Patient continued on dysphagia 3, nectar thickened diet, and recommend aspiration precautions. psychiatry following as well. Psych meds resumed. Continue with insulin sliding scale as needed and continue to monitor Accu-Cheks before meals and at bedtime. Patient's blood sugars have been controlled and not requiring any insulin Have discussed with social work about discharge planning and patient has legal guardian that has gotten him an apartment and working on possible assistance in the home or home care. Prognosis is guarded at this time. Possible discharge Thursday.
[2021-10-07 00:42] LABS: Glucose,Whole Blood 96 mg/dL (70-110)
[2021-10-07] MEDS: HEPARIN SODIUM,PORCINE/PF 5,000 UNIT/0.5 ML SYRINGE SQ SCH ×3 (00:58→15:54)
[2021-10-07 05:46] LABS: Glucose,Whole Blood 93 mg/dL (70-110)
[2021-10-07 07:08] LABS: Glucose,Whole Blood 93 mg/dL (70-110)
[2021-10-07] MEDS ORDERED: PANTOPRAZOLE 40 MG TABLET PO SCH (07:30)
[2021-10-07] MEDS: predniSONE 20 MG TAB PO SCH (07:38)
[2021-10-07] MEDS: AMOXIC-POT CLAV 875-125MG 1 EACH TAB PO SCH (07:39)
[2021-10-07] MEDS: METOPROLOL TARTRATE 25 MG TAB PO SCH (07:39)
[2021-10-07 08:11] VITALS: RESP 18
[2021-10-07] MEDS: IPRATROPIUM-ALBUTEROL 3 ML NEB INHALATION SCH ×3 (08:57→15:50)
[2021-10-07 09:27] LABS: African American GFR (CKD) 109.4 (60.0-200.0); Blood Urea Nitrogen 12.8 mg/dL (9.0-27.0); Calcium 8.3 mg/dL (8.7-10.3); Non-African American GFR(CKD) 94.4 (60.0-200.0); Potassium 4.3 mmol/L (3.5-5.5)
[2021-10-07 09:49] LABS: HCT 39.7 % (39.6-50.0); MCH 30.3 pg (27.0-32.0); MCHC 30.2 g/dL (32.0-37.0); MCV 100.3 fL (80.0-97.0); Mean Platelet Volume 10.5 fL (9.5-12.2); NRBC Per 100 WBC 0 /100 WBCS (0.0-0.0); Platelet Count 215 X 10*3/uL (140-440); RBC 3.96 X 10*6/uL (4.40-5.60); RDW 13.6 % (11.5-14.5); WBC 41.56 X 10*3/uL (4.50-10.00)
[2021-10-07 11:11] LABS: Basophils # (M) 0 X 10*3/uL (0.00-0.10); Eosinophils # (M) 0 X 10*3/uL (0.04-0.35); Lymphocytes # (M) 36.57 X 10*3/uL (0.90-5.00); Monocytes # (M) 1.66 X 10*3/uL (0.20-1.00); Neutrophils # (M) 3.32 X 10*3/uL (2.00-8.90); Neutrophils % (M) 8 %; Smudge Cells PRESENT
[2021-10-07 11:51] LABS: Glucose,Whole Blood 100 mg/dL (70-110)
--- NOTE | 2021-10-07 13:00 | P.PN ---
Subjective Progress Note Date: 10/07/21 Principal diagnosis: Shortness of breath On 10/07/2021 patient is seen in follow-up on medical surgical floor. He is resting comfortably in the chair, breathing comfortable, room air pulse ox is 96%, no cough or congestion, or phlegm production, his been afebrile, vital signs have been stable. Did not utilize BiPAP last night. Last chest x-ray from 10/01/2021 reviewed showing improvement in aeration of the left lung base with residual atelectasis and small bilateral pleural effusions. Patient has been transitioned to oral prednisone, he remains on DuoNeb, and continues on oral Augmentin. He is on GI and DVT prophylaxis. His had no acute events overnight. Currently discharge is pending to patient's apartment with [facility] Objective - Vital Signs Vital signs: Vital Signs Temp 98.8 F 10/07/21 08:08 Pulse 89 10/07/21 12:38 Resp 18 10/07/21 08:08 BP 123/81 10/07/21 08:08 Pulse Ox 96 10/07/21 08:58 FiO2 100 10/02/21 07:00 Intake & Output 10/06/21 10/07/21 10/07/21 18:59 06:59 18:59 Weight 81.5 kg Other: Voiding Method Toilet # Bowel Movements 1 - Exam GENERAL EXAM: Alert, pleasant, 66-year-old white male, resting comfortably in the chair, breathing comfortably without pulse ox of 95-96% on room air comf ortable in no apparent distress. HEAD: Normocephalic/atraumatic. EYES: Normal reaction of pupils, equal size. Conjunctiva pink, sclera white. NOSE: Clear with pink turbinates. THROAT: No erythema or exudates. NECK: No masses, no JVD, no thyroid enlargement, no adenopathy. CHEST: No chest wall deformity. Symmetrical expansion. LUNGS: Equal air entry with no crackles, wheeze, rhonchi or dullness. CVS: Regular rate and rhythm, normal S1 and S2, no gallops, no murmurs, no rubs ABDOMEN: Soft, nontender. No hepatosplenomegaly, normal bowel sounds, no guarding or rigidity. EXTREMITIES: No clubbing, no edema, no cyanosis, 2+ pulses and upper and lower extremities. MUSCULOSKELETAL: Muscle strength and tone normal. SPINE: No scoliosis or deformity SKIN: No rashes CENTRAL NERVOUS SYSTEM: Alert and oriented -3. No focal deficits, tone is normal in all 4 extremities. PSYCHIATRIC: Alert and oriented -3. Appropriate affect. Intact judgment and insight. - Labs CBC & Chem 7: 10/07/21 05:59 10/07/21 05:59 Labs: Abnormal Lab Results - Last 24 Hours (Table) 10/07/21 10/07/21 Range/Units 05:59 05:59 WBC 41.56 H (4.50-10.00) X 10*3/uL RBC 3.96 L (4.40-5.60) X 10*6/uL Hgb 12.0 L (13.0-17.0) g/dL MCV 100.3 H (80.0-97.0) fL MCHC 30.2 L (32.0-37.0) g/dL Lymphocytes # (Manual) 36.57 H (0.90-5.00) X 10*3/uL Monocytes # (Manual) 1.66 H (0.20-1.00) X 10*3/uL Eosinophils # (Manual) 0 L (0.04-0.35) X 10*3/uL Carbon Dioxide 31.0 H (20.0-27.5) mmol/L Anion Gap 7.00 L (10.00-18.00) mmol/L Calcium 8.3 L (8.7-10.3) mg/dL Assessment and Plan Plan: Assessment: Altered mental status secondary mainly due to metabolic factors including chronic hypercapnic respiratory failure , improved and the patient's mental status back to its baseline Acute hypoxic respiratory failure, recovered and the patient is currently on room air oxygen Chronic obstructive pulmonary disease, and exacerbation, improving Hyponatremia , recovered and the sodium level is normalized Hyperkalemia, K is normal History of schizophrenia History of incarceration Leukocytosis secondary to history of small lymphocytic lymphoma/CLL diagnosed in August 2019, white cell count remains chronically elevated Chronic and ongoing tobacco dependence History of cocaine use Diabetes mellitus, type II Hypertension Chronic obstructive pulmonary disease Previous hospitalization for aspiration, pneumonia and ventilatory dependent respiratory failure 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 Rajput in 7-10 days I have personally seen and examined the patient, performed the documentation and the assessment and plan as written. Number of minutes spent on the visit: [10] Time with Patient: Less than 30
[2021-10-07 14:43] VITALS: BP 114/73; TEMP 99.1
[2021-10-07 15:58] VITALS: PULSE 76
--- NOTE | 2021-10-09 16:49 | P.DS ---
Providers Date of admission: 09/27/21 13:26 Expected date of discharge: 10/07/21 Attending physician: Martin Maza Consults: 09/27/21 13:26 Consult Physician Stat Consulting Provider: Jose Syed Consult Reason/Comments: Hypercapnic acidosis Do you want consulting provider notified?: Yes 09/27/21 14:14 Consult Physician Routine Consulting Provider: Felicity Garcia Consult Reason/Comments: Hyponatremia, h/o SIADH Do you want consulting provider notified?: Yes 09/27/21 14:15 Consult Physician Routine Consulting Provider: Zeke Mccoy Consult Reason/Comments: Leukocytosis, lymphoma Do you want consulting provider notified?: Yes 10/01/21 09:34 Consult Physician Routine Consulting Provider: Quan Perales Consult Reason/Comments: agitation, Hx of schizophrenia Do you want consulting provider notified?: Yes 10/02/21 18:58 Consult Physician Urgent Consulting Provider: Andrea Garza Consult Reason/Comments: runs of vtach with ectopy and PAC/PVC Do you want consulting provider notified?: Yes Primary care physician: Stated None Hospital Course: Final diagnosis Altered mental status due to metabolic encephalopathy and hypoxic and hypercapnic respiratory failure. 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 Hypertension. Diabetes type 2 COPD Chronic hypercapnic respiratory failure on home oxygen Schizophrenia History of incarceration Ongoing nicotine addiction History of cocaine use Previous hospitalization with aspiration pneumonia and VDRF DVT prophylaxis with heparin subcu CODE STATUS DNR/DNI Discharge disposition Patient is being discharged in a stable condition with guarded prognosis to home. Patient will follow-up with Dr. Alvarez in the outpatient setting upon discharge. Patient is to also follow up with pulmonary in the outpatient setting. Patient will continue on a prednisone taper along with Augmentin twice daily for the next one week to complete the course. Patient does have a legal guardian and is arranging for increased supervision in the home and outpatient [facility] follow-up. Total time taken is greater than 35 minutes. Hospital course This is a 66-year-old male who was recently admitted with increasing shortness of breath along with congestion and oxygen was found to be less than 80% patient also having altered mental status. Patient was monitored closely in the ICU for some time and did require BiPAP and oxygen at high flow and was titrated to room air. Patient does have an extensive psychiatric history including schizophrenia and continues to smoke. Patient does have a legal guardian Niles Wise and has arranged for an apartment and also working with [facility] to increase his supervision and also possible act services in the outpatient setting. Patient will continue with oral Augmentin for the next 1 week along with a prednisone taper on discharge. Patient encouraged to avoid smoking or any other drug use and follow-up with [facility]. Patient is currently maintained on room air and will continue with inhalers as well. Currently no reports of chest pain, shortness of breath, or palpitations. Patient is afebrile. No reports of nausea or vomiting and patient is tolerating diet. Patient will be discharged home today. Guarded prognosis. Physical exam: Gen: This is a 66-year-old male awake, alert and oriented 2-3, well-developed, well-nourished. HEENT: Head is atraumatic, normocephalic. Pupils equal, round. Sclerae is anicteric. NECK: Supple. No JVD. No lymphadenopathy. No thyromegaly. LUNGS: Clear to auscultation. No wheezes or rhonchi. No intercostal retractions. HEART: Regular rate and rhythm. No murmur. ABDOMEN: Soft. Bowel sounds are present. No masses. No tenderness. EXTREMITIES: No pedal edema. No calf tenderness. NEUROLOGICAL: Patient is awake, alert and oriented x3. Cranial nerves 2 through 12 are grossly intact. Please refer to medication reconciliation sheet for a list of medications. The impression and plan of care has been dictated by Martita Enrique, Nurse Practitioner as directed. Dr. Wai MD I have performed a history and examination and MDM of this patient, discussed the same with the dictator, and agree with the dictator's assessment and plan as written ,documented as a scribe. Based on total visit time, I have performed more than 50% of the visit. Patient Condition at Discharge: Fair Plan - Discharge Summary Discharge Rx Participant: No New Discharge Prescriptions: New Ipratropium-Albuterol Nebulize [Duoneb 0.5 mg-3 mg/3 ml Soln] 3 ml INHALATION QID 30 Days #390 ml Amoxic-Pot Clav 875-125Mg [Augmentin 875-125] 1 each PO Q12HR 7 Days #14 tab Metoprolol Tartrate [Lopressor] 25 mg PO BID #60 tab Ipratropium-Albuterol Nebulize [Duoneb 0.5 mg-3 mg/3 ml Soln] 3 ml INHALATION RT-Q2H PRN each PRN Reason: Shortness Of Breath Or Wheezing predniSONE 10 mg PO DIRECTED #30 tab Continue Multivitamins, Thera [Multivitamin (formulary)] 1 tab PO DAILY Ketoconazole 2% Cream [Nizoral 2%] 1 applic TOPICAL DIRECTED Cholecalciferol [Vitamin D3 (25 Mcg = 1000 Iu)] 25 mcg PO DAILY Acetaminophen Tab [Tylenol] 650 mg PO BID Paliperidone IM [Invega Sustenna] 234 mg IM Q28D Discharge Medication List Acetaminophen Tab [Tylenol] 650 mg PO BID 09/27/21 [History] Cholecalciferol [Vitamin D3 (25 Mcg = 1000 Iu)] 25 mcg PO DAILY 09/27/21 [History] Ketoconazole 2% Cream [Nizoral 2%] 1 applic TOPICAL DIRECTED 09/27/21 [History] Multivitamins, Thera [Multivitamin (formulary)] 1 tab PO DAILY 09/27/21 [History] Paliperidone IM [Invega Sustenna] 234 mg IM Q28D 09/27/21 [History] Amoxic-Pot Clav 875-125Mg [Augmentin 875-125] 1 each PO Q12HR 7 Days #14 tab 10/07/21 [Rx] Ipratropium-Albuterol Nebulize [Duoneb 0.5 mg-3 mg/3 ml Soln] 3 ml INHALATION QID 30 Days #390 ml 10/07/21 [Rx] Ipratropium-Albuterol Nebulize [Duoneb 0.5 mg-3 mg/3 ml Soln] 3 ml INHALATION RT-Q2H PRN each 10/07/21 [Rx] Metoprolol Tartrate [Lopressor] 25 mg PO BID #60 tab 10/07/21 [Rx] predniSONE 10 mg PO DIRECTED #30 tab 10/07/21 [Rx] Follow up Appointment(s)/Referral(s): Jaja Alvarez MD [STAFF PHYSICIAN] - 1 Week Kareen Rajput MD [STAFF PHYSICIAN] - 1 Week Activity/Diet/Wound Care/Special Instructions: Activity Limited until follow-up Establish with primary care provider and follow-up as soon as possible Follow-up with pulmonary outpatient Continue taking medications as prescribed Avoid any alcohol, tobacco, drug use Continue dysphagia 3 chopped diet and continue fluid restrictions of 1500 mL's per day and aspiration precautions Patient to follow-up with hematology/oncology outpatient Continue with [facility] Patient will require a nebulizer on discharge to continue with DuoNeb treatments 4 times a day and as needed to manage his COPD Discharge Disposition: HOME SELF-CARE
== END 2021-10-07 17:45 | disposition home or self-care (01) | DRG 189 ==
LOC: EC 11:00 → 2SICU 13:26 → 4SSUR 10-04 12:11
PROVIDERS: ADMIT Internal Medicine; ATTEND Internal Medicine
PROC: 5A09457 Assistance with Respiratory Ventilation, 24-96 Consecutive Hours, Continuous Positive Airway Pressure (ICD-10-PCS; principal; 2021-09-27)
PROC: 3E033XZ Introduction of Vasopressor into Peripheral Vein, Percutaneous Approach (ICD-10-PCS; 2021-09-28)
DX: J96.22 Acute and chronic respiratory failure with hypercapnia (principal); G93.41 Metabolic encephalopathy; R57.9 Shock, unspecified; E22.2 Syndrome of inappropriate secretion of antidiuretic hormone; I47.2 Ventricular tachycardia; E87.4 Mixed disorder of acid-base balance; J44.1 Chronic obstructive pulmonary disease with (acute) exacerbation; C85.90 Non-Hodgkin lymphoma, unspecified, unspecified site; N17.9 Acute kidney failure, unspecified; I67.89 Other cerebrovascular disease; I69.354 Hemiplegia and hemiparesis following cerebral infarction affecting left non-dominant side; C91.10 Chronic lymphocytic leukemia of B-cell type not having achieved remission; J98.11 Atelectasis; J96.21 Acute and chronic respiratory failure with hypoxia; E11.9 Type 2 diabetes mellitus without complications; F20.9 Schizophrenia, unspecified; F14.11 Cocaine abuse, in remission; Z66 Do not resuscitate; Z20.822 Contact with and (suspected) exposure to COVID-19; I11.9 Hypertensive heart disease without heart failure; I69.392 Facial weakness following cerebral infarction; E78.5 Hyperlipidemia, unspecified; E87.5 Hyperkalemia; I49.3 Ventricular premature depolarization; F17.200 Nicotine dependence, unspecified, uncomplicated; R59.0 Localized enlarged lymph nodes; Z99.81 Dependence on supplemental oxygen; Z79.899 Other long term (current) drug therapy; Z87.01 Personal history of pneumonia (recurrent); Z88.2 Allergy status to sulfonamides
CPT/HCPCS: 36415; 36600; 70450; 71045; 80048; 80053; 82533; 82784; 82805; 83605; 83735; 83880; 84100; 84132; 84145; 84295; 84439; 84443; 84484; 84550; 85025; 85610; 85730; 87040; 87086; 87635; 93005; 93306; 94640; 94660; 94760; 96374; 99291

== ENCOUNTER → 2022-02-12 | Outpatient (CLI) | payer MEDICARE, OTHER ==
[2022-02-12 08:13] LABS: African American GFR (CKD) >90 (>60 ml/min/1.73 sqM); Blood Urea Nitrogen 10 mg/dL (9-20); Non-African American GFR(CKD) >90 (>60 ml/min/1.73 sqM)
--- NOTE | 2022-02-12 10:14 | CT ---
EXAMINATION TYPE: CT ChestAbdPelvis w con DATE OF EXAM: 02/12/2022 COMPARISON: Abdomen pelvis 08/18/2019 and chest 05/11/2019 HISTORY: 66-year-old male C91.10, Lymphoma. TECHNIQUE: Contiguous axial scanning of the chest, abdomen, and pelvis performed with IV Contrast, pa tient injected with 70ml mL of Isovue 300. Delayed images through the kidneys were obtained. Coronal/ sagittal reconstructions performed. CT DLP: 1542.7 mGycm Automated exposure control for dose reduction was used. FINDINGS: CHEST: Heart normal size without pericardial effusion. Mild LAD coronary artery calcifications are present. Mild aneurysm ascending aorta 4.0 cm, unchanged from prior. There is bovine configuration to the aort ic arch. Mildly enlarged caliber to the main right and left pulmonary arteries measuring up to 2.8 cm suggesti ng underlying pulmonary hypertension. Extensive lymphadenopathy noted at the base of the neck measuring up to 2.4 cm in the subclavicular r egions. Bilateral axillary lymphadenopathy measuring up to 2.3 cm. Diffuse mediastinal lymphadenopathy measuring up to 2.7 cm lower right paratracheal and 4.4 x 1.9 cm AP window. Bilateral hilar lymphadenopathy measuring up to 4.6 x 2.2 cm on the right. Subcarinal lymphadenopathy measuring up to 1.7 cm. Right paraesophageal lymphadenopathy measuring up to 2.3 cm. Retrocrural lymphadenopathy measuring up to 1.7 cm. There is moderate centrilobular emphysema. Pleural parenchymal scarring at the right greater than lef t lung bases. There is some endobronchial opacification posterior basilar right lower lobe, probably mucoid plugging. Attention on follow-up to exclude developing endobronchial mass. There is a 1.3 cm nodule at the left base, axial image 52. 4 mm anterior right upper lobe nodule, axial image 18. 2.1 cm nodule central left upper lobe, axial image 18. Possible lymphomatous infiltrates. Otherwise, no consolidation or pleural effusion. ABDOMEN: Liver enlarged measuring 19.9 cm. There may be mild fatty infiltration. No focal lesion is seen withi n the liver. Portal venous system is patent. No biliary ductal dilatation. Splenomegaly at 19.8 cm versus 17.4 cm on 08/18/2019. Left adrenal nodule measuring 2.5 cm, unchanged from 08/18/2019 suggesting an underlying adrenal adenom a. Gallbladder, right adrenal gland, kidneys, and pancreas within normal limits. Abdominal mesenteric and retroperitoneal lymphadenopathy is now present: Gastrohepatic ligament nodes measure up to 1.7 cm. Peripancreatic nodes measure up to 1.9 cm. Portacaval nodes measure up to 2.0 cm. Retroperitoneal nodes measure up to 4.2 cm. Mesenteric nodes measuring up to 3.1 cm. No dilated small bowel, free fluid, or free air. Normal appendix. Oral contrast progressed into the mid transverse colon. No significant stool burden. There is left-sided colonic diverticulosis particularly in the lower descending and proximal sigmoid colon. No pericolonic inflammatory change or significant stool burden. PELVIS: Bladder partially distended. Prostate gland mildly enlarged at 4.4 cm wide. No abnormal fluid collect ion in the pelvis. Inguinal lymphadenopathy measuring 2.6 cm. Double Ending Machine Operator chain lymphadenopathy measuring up to 3.8 cm. External iliac chain lymphadenopathy measuring up to 2.0 cm. Common iliac chain lymphadenopathy measuring up to 1.9 cm. BONES: Somewhat heterogeneous appearance to the marrow. Moderate to advanced spondylotic change or lumbar sp ine. Moderate degenerative disc disease mid to lower thoracic spine. IMPRESSION: 1. DIFFUSE THORACIC, ABDOMINAL, AND PELVIC LYMPHADENOPATHY WITH MEASUREMENTS ABOVE IN KEEPING WITH PATIENT'S LYMPHOMA. THERE IS ALSO SPLENOMEGALY UP TO 19.8 CM. IN ADDITION, DIFFUSE HETEROGENEOUS NORMA EARANCE TO THE MARROW COULD REPRESENT LYMPHOMATOUS INVOLVEMENT OF THE MARROW. 2. A FEW PULMONARY NODULES MEASURING UP TO 2.1 CM, POSSIBLE LIPOMATOUS INVOLVEMENT. ATTENTION ON FOLL OW-UP TO EXCLUDE LUNG PRIMARY. 3. THERE IS BACKGROUND MODERATE COPD AND CHRONIC SCARRING AT THE RIGHT GREATER THAN LEFT LUNG BASES. SOME ENDOBRONCHIAL OPACIFICATION AT THE POSTERIOR BASILAR RIGHT LOWER LOBE PROBABLY REPRESENTS MUCOID PLUGGING. ATTENTION ON FOLLOW-UP TO EXCLUDE AN EARLY ENDOBRONCHIAL MASS. 4. INCIDENTAL: MILD ANEURYSM ASCENDING AORTA AT 4.0 CM IS STABLE. POSSIBLE UNDERLYING PULMONARY ARTER IAL HYPERTENSION. MILD HEPATOMEGALY AND SUSPECTED MILD HEPATIC STEATOSIS. 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 LEFT-SIDED COLONIC DIVERTICULOSIS. MILD PROSTATOMEGALY.
[2022-02-12 15:11] LABS: African American GFR (CKD) 106.6 (60.0-200.0); Albumin 3.8 g/dL (3.8-4.9); Albumin/Globulin Ratio 2.46 (1.60-3.17); Anion Gap 7.5 mmol/L (10.00-18.00); BUN/Creat Ratio 10.06 Ratio (12.00-20.00); Blood Urea Nitrogen 8.6 mg/dL (9.0-27.0); Calcium 8.6 mg/dL (8.7-10.3); Carbon Dioxide 30.3 mmol/L (20.0-27.5); Globulin 1.6 g/dL (1.6-3.3); Phosphorus 3.2 mg/dL (2.4-5.1); Potassium 4.6 mmol/L (3.5-5.5); Total Bilirubin 0.4 mg/dL (0.30-1.20); Total Protein 5.4 g/dL (6.2-8.2); Uric Acid 3.8 mg/dL (3.7-8.7)
[2022-02-12 17:27] LABS: Basophils # (A) 0.14 X 10*3/uL (0.00-0.10); Basophils % (A) 0.3 %; Eosinophils # (A) 0.02 X 10*3/uL (0.04-0.35); Eosinophils % (A) 0 %; HCT 44.8 % (39.6-50.0); Immature Grans, Automated 0.5 %; Lymphocytes % (A) 77.8 %; MCH 29.2 pg (27.0-32.0); MCHC 31.3 g/dL (32.0-37.0); MCV 93.3 fL (80.0-97.0); Mean Platelet Volume 9.7 fL (9.5-12.2); Monocytes % (A) 10.4 %; NRBC Per 100 WBC 0 /100 WBCS (0.0-0.0); Neutrophils # (A) 4.58 X 10*3/uL (1.80-7.70); Platelet Count 178 X 10*3/uL (140-440); RDW 13.6 % (11.5-14.5); WBC 41.54 X 10*3/uL (4.50-10.00)
== END | disposition home or self-care (01) ==
LOC: RADCTMAIN 07:37
PROVIDERS: ATTEND Internal Medicine Hematology & Oncology
DX: C91.10 Chronic lymphocytic leukemia of B-cell type not having achieved remission (principal); C83.80 Other non-follicular lymphoma, unspecified site; I10 Essential (primary) hypertension; J44.9 Chronic obstructive pulmonary disease, unspecified; J98.4 Other disorders of lung; R16.2 Hepatomegaly with splenomegaly, not elsewhere classified; D35.02 Benign neoplasm of left adrenal gland; K57.30 Diverticulosis of large intestine without perforation or abscess without bleeding; N40.0 Benign prostatic hyperplasia without lower urinary tract symptoms; I71.21 Aneurysm of the ascending aorta, without rupture; R91.8 Other nonspecific abnormal finding of lung field; R59.0 Localized enlarged lymph nodes
CPT/HCPCS: 80053; 82565; 83615; 84100; 84520; 84550; 85025; 71260; 74177; 36415; Q9967 ×2